=== PATIENT | male | born 1945 | race Caucasian/White ===

== ENCOUNTER 2022-11-17 15:34 | Outpatient (OUT) | payer MEDICARE, SELFPAY ==
[2022-11-19 05:07] LABS: Prostate Specific Ag 23.7 ng/mL (0.0-4.0)
== END 2022-11-17 15:35 | disposition home or self-care (01) ==
LOC: LAB 15:42
PROVIDERS: PCP Nurse Practitioner; Visit Provider Urology
DX: R97.20 Elevated prostate specific antigen [PSA] (principal); N40.1 Benign prostatic hyperplasia with lower urinary tract symptoms
CPT/HCPCS: 36415; 84153; 84154

== ENCOUNTER 2023-04-09 12:04 | Emergency (ER) | payer MEDICARE, SELFPAY ==
[2023-04-09 12:10] VITALS: BP 160/100; PULSE 82; RESP 20; TEMP 36.7; O2SAT 95; BMI 31.2
[2023-04-09] MEDS: LIDOCAINE 2% JELLY 10 ML UR (12:56)
--- NOTE | 2023-04-09 12:57 | ED.MALEGU1 ---
HPI - Male Genitourinary General Chief complaint: Urogenital-Male Stated complaint: STRAW [employer]AT [employer]ATOR PROBLEM Time Seen by Provider: 04/09/23 12:41 Source: patient Mode of arrival: Wheelchair Limitations: no limitations History of Present Illness HPI Narrative: this patient came from home with promises Chen catheter. It did not drain any urine in the last twenty-four hours he has suprapubic discomfort. He is currently under the care of a urologist. He is not currently on any antibiotics. He's not had any fever shakes or chills he is afebrile at this time. He's not seen any blood clots in the catheter. There has not been any trauma or injury. Related Data Home Medications Medication Instructions Recorded Confirmed doxycycline hyclate 100 mg capsule 100 mg PO Q12H 04/09/23 04/09/23 Allergies Allergy/AdvReac Type Severity Reaction Status Date / Time Beta-Blockers Allergy Severe Verified 04/09/23 12:17 (Beta-Adrenergic Bloc iv dye contrast Allergy Severe Uncoded 04/09/23 12:17 PFSH PFSH Social History Smoking status: Never smoker Exam Narrative Exam Narrative: this patient's here with his son for evaluation of a obstructed Chen catheter. He is scheduled to see urology for follow-up. It's been in for several weeks. He's been on antibiotics/doxycycline for several weeks. He's not had fever shakes or chills. They've nota blood clots or bleeding in the Chen catheter. He has not drained since yesterday. He is uncomfortable and has the urge to void. Nursing staff did a bladder scan on him and he has 650 mL of retained urine. Nursing staff was able to remove the previous catheter with no problems and reinsert a new catheter. We have over 600 mL of slightly cloudy yellow urine returning. No bleeding or blood clots were noted. Examination abdomen soft and supple at this time he has no abdominal discomfort. Constitutional Vital Signs, click to edit/add: Last Vital Signs Temp 98.1 F 04/09/23 12:10 Pulse 82 04/09/23 12:10 Resp 20 04/09/23 12:10 BP 160/100 H 04/09/23 12:10 Pulse Ox 95 04/09/23 12:10 Course Vital Signs Vital signs: Vital Signs Temperature 98.1 F 04/09/23 12:10 Pulse Rate 82 04/09/23 12:10 Respiratory Rate 20 04/09/23 12:10 Blood Pressure 160/100 H 04/09/23 12:10 Pulse Oximetry 95 04/09/23 12:10 Temperature 98.1 F 04/09/23 12:10 Pulse Rate 82 04/09/23 12:10 Respiratory Rate 20 04/09/23 12:10 Blood Pressure 160/100 H 04/09/23 12:10 Pulse Oximetry 95 04/09/23 12:10 MDM - Male Genitourinary MDM Narrative Medical decision making narrative: the son indicates that the urology team wants to do some biopsies for a prostate lesion but he also has a aneurysm that is scheduled to be repaired in [place] by the vascular surgery team. They're wanting to take care of that problem before the get concerned with the prostate. At this stage we're able to successfully reach changes Chen catheter and he did very well. We will teach him how to irrigate it every other day routine saline irrigation to help facilitate the longevity of this catheter. Discharge Plan Discharge Chief Complaint: Urogenital-Male Clinical Impression: Obstruction of Chen catheter Patient Disposition: Home, Self-Care Time of Disposition Decision: 13:07 Prescriptions / Home Meds: No Action doxycycline hyclate 100 mg capsule 100 mg PO Q12H Additional Instructions: follow-up with urology as needed. Consider irrigating catheter every other day Stand Alone Forms: Portal Instructions Referrals: Carmelita Zavala NP [Primary Care Provider] - 1 week
[2023-04-09 13:30] LABS: Clarity Urine TURBID (CLEAR); Color Urine DK YELLOW (YELLOW); pH Urine 8.5 (5.0-9.0)
[2023-04-09 13:31] LABS: Bilirubin Urine NEGATIVE (NEGATIVE); Blood Urine LARGE (NEGATIVE); Glucose Urine UA NEGATIVE (NEGATIVE); Ketones Urine NEGATIVE (NEGATIVE); Nitrite Urine NEGATIVE (NEGATIVE); Protein Urine 100 mg/dL (NEG/TRACE)
[2023-04-09 13:32] LABS: Leukocyte Esterase Urine LARGE (NEGATIVE); Urine Microscopic Indicated YES; Urobilinogen Urine 0.2 EU/dL (0.2-1.0)
[2023-04-09 13:33] LABS: Bacteria Urine LARGE #/HPF (NONE SEEN); RBC Urine 20-50 #/HPF (0-2); WBC Urine 50-75 #/HPF (NONE SEEN)
[2023-04-09 13:34] LABS: Cast Seen? NONE SEEN #/LPF (NONE SEEN); Crystals Seen? None Seen #/HPF (None Seen); Mucus Urine NONE SEEN (NONE SEEN); Squamous Epithelial Cell Urine NONE SEEN #/LPF (NONE/RARE); Urine Culture Indicated YES
--- NOTE | 2023-04-12 15:43 | PC.NURSE ---
04/12/23 1543 PT URINE C+S REVIEWED BY Shawna FREEMAN NO STOP DOXY START CIPRO 500 MG PO BID TIMES 7 DAYS CALLED INTO PHARMACIST AT [facility] PER PT SON REQUEST. PT SON NOTIFIED AND REQUEST RESULT FAXED TO UROLOGIST DR LEE DID REQUESTED. Tamiko CARLISLE RN
== END 2023-04-09 13:43 | disposition home or self-care (01) ==
PROVIDERS: Emergency Provider Emergency Medicine Emergency Medical Services; PCP Nurse Practitioner
DX: T83.098A Other mechanical complication of other urinary catheter, initial encounter (principal); R10.9 Unspecified abdominal pain
CPT/HCPCS: 51702; 81001; 87086; 87150; 87186; 99284

== ENCOUNTER 2023-06-08 16:52 | Outpatient (REF) | payer MEDICARE, SELFPAY ==
--- OUTSIDE RECORDS SUMMARY | 2023-06-08 16:59 | XMS_ITS | CCD ---
Author Name Unknown Address [id number] [place] [address] Organization [facility] Care Team Providers Care Jewelsmith Name Role Phone CARMELITA ZAVALA Primary Care Physician LINDA WORKMAN Attending Unavailable ANABELA, MINDY Referring Unavailable AICHHOLZ, SPRING COVERER CARMELITA Primary Care Unavailable HOY ., DR HOWARD Admitting Unavailable HOY ., DR HOWARD Attending Unavailable HOY ., DR HOWARD Consulting Unavailable ANIKA CURTIS Consulting Unavailable ALKA MORENO Consulting Unavailable CARMEN MURDOCK Consulting Unavailable AD, JULEE Consulting Unavailable AICHHOLZ, SPRING COVERER CARMELITA Admitting Unavailable AICHHOLZ, SPRING COVERER CARMELITA Attending Unavailable AICHHOLZ, SPRING COVERER CARMELITA Primary Care Unavailable AICHHOLZ, SPRING COVERER CARMELITA Consulting Unavailable AICHHOLZ, SPRING COVERER CARMELITA Admitting Unavailable AICHHOLZ, SPRING COVERER CARMELITA Attending Unavailable AICHHOLZ, SPRING COVERER CARMELITA Primary Care Unavailable AICHHOLZ, SPRING COVERER CARMELITA Consulting Unavailable AICHHOLZ, SPRING COVERER CARMELITA Admitting Unavailable AICHHOLZ, SPRING COVERER CARMELITA Attending Unavailable AICHHOLZ, SPRING COVERER CARMELITA Primary Care Unavailable AICHHOLZ, SPRING COVERER CARMELITA Consulting Unavailable WILLIAMS Arboleda, DR MADY Liao Admitting Unavaila asim Arboleda, DR MADY Liao Attending Unavaila ble AICHHOLZ, SPRING COVERER CARMELITA Primary Care Unavailable Deandre Min Consulting Unavailable DR MADY CAGLE JR Consulting Unavaila ble AICHHOLZ, SPRING COVERER CARMELITA Admitting Unavailable AICHHOLZ, SPRING COVERER CARMELITA Attending Unavailable AICHHOLZ, SPRING COVERER CARMELITA Primary Care Unavailable DR CAROLINE BLOUNT V Consulting Unavailable AICHHOLZ, SPRING COVERER CARMELITA Consulting Unavailable AICHHOLZ, SPRING COVERER CARMELITA Admitting Unavailable AICHHOLZ, SPRING COVERER CARMELITA Attending Unavailable AICHHOLZ, SPRING COVERER CARMELITA Primary Care Unavailable AICHHOLZ, TATYANA CARMELITA Consulting Unavailable MD Sancho Lee Attending Provider Carmelita Zavala Primary Care Provider [phone] Linda Rodriguez Unavailable Carmelita Zavala Primary Care Provider [phone] MD Sancho Lee Attending Provider MD Linda Rodriguez Attending Provider Carmelita Zavala Primary Care Provider [phone] MD Sancho Lee Attending Provider MD Linda Rodriguez Attending Provider Glo Singleton Unavailable MD Glo Singleton Attending Provider [phone] MD Glo Singleton Referring Provider [phone] Cherry, IOS DEVELOPER-BC Mary Miller Emergency Provider [phone] MD Linda Rodriguez Admit Provider Linda Rodriguez Admitting Unavailabl e Linda Rodriguez Attending Unavailabl e Carmelita Zavala Primary Care Unavailable Linda Rodriguez Attending Unavailabl e Linda Rodriguez Admitting Unavailabl e Carmelita Zavala Primary Care Unavailable Mary Carey Admitting Unavailable CarieoreOmerer Angela Attending Unavailable Carmelita Zavala Primary Care Unavailable Sancho Lee Attending Unavailable Sancho Lee Admitting Unavailable Carmelita Zavala Primary Care Unavailable Linda Rodriguez Admitting Unavailabl e Linda Rodriguez Attending Unavailabl e Carmelita Zavala Primary Care Unavailable Linda Rodriguez Admitting Unavailabl e Linda Rodriguez Attending Unavailabl e Carmelita Zavala Primary Care Unavailable Glo Singleton Admabena Unavailable Glo Singleton Attending Unavailable Glo Singleton Referring Unavailable Carmelita Zavala Primary Care Unavailable Addie Hunt Unavailable Sancho LEE R Attending Unavailable LEE, Sancho R Attending Unavailable LEE, Sancho R Attending Unavailable LEE, Sancho R Attending Unavailable LEE, Sancho R Attending Unavailable LEE, Sancho R Admitting Unavailable LEE, Sancho R Attending Unavailable LEE, Sancho R Attending Unavailable LEE, Sancho R Attending Unavailable Allergies Allergy Classification Reported Allergen(s) Allergy Type Date of Onset Reaction(s) Facility (4 sources) Adrenergic Beta-Antagonist s; Translations: [beta blockers] Drug allergy Asthenia (finding), Vomiting (disorder), Dizziness (finding) [facility] (1 source) ALLERGIES NOT ON FILE; Translations: [ALLERGIES NOT ON FILE] Propensity to adverse reactions (disorder) [facility] (1 source) Adrenergic Beta-Antagonist s Drug allergy (disorder) [facility] (7 sources) Beta-Blockers (Beta-Adrenergi c Bloc; Translations: [Beta-Blockers (Beta-Adrenergi c Bloc] Allergy to substance 3 Headache [facility] (9 sources) Adrenergic Beta-Antagonist s Propensity to adverse reactions vomiting [facility] Other (6 sources) Iodinated Contrast Media; Translations: [Iodinated Contrast Media] Allergy to substance 3 Difficulty Swallowing [facility] (7 sources) Contrast Allergy PreMed Pack Drug allergy Unknown [employer] [facility] Other Medications Current Medications Medication Drug Class(es) Dates Sig (Normalized) Sig (Original) acetaminophen 325 mg / oxyCODONE hydrochloride 5 mg oral tablet (1 source) Opioid Agonist Start: 04-18-2021 take 1 tablet by mouth every six hours Percocet 5 mg-325 mg oral tablet 1 tab(s), Oral, q6hr Pain 8-10, 20 tab(s), Refill(s) 0, [facility] 177.8, cm, 04/18/21 10:33:00 EST, Height/Length Dosing, 84.4, kg, 04/18/21 10:33:00 EST, Weight Dosing Start Date: 04/18/21 Status: Ordered aspirin 81 mg delayed release oral tablet (20 sources) Platelet Aggregation Inhibitor, Nonsteroidal Anti-inflammatory Drug Start: 04-18-2021 take 1 tablet by mouth once daily aspirin 81 mg Oral EC Tab 81 mg = 1 tab(s), Oral, Daily, Blood Thinner Start Date: 04/18/21 Status: Ordered Start: 11-26-2018 End: 04-13-2023 take 81 mg by mouth once daily Aspirin Discontinued 81 MG PO Daily 0 November 27, 2018 12:50pm April 13, 2023 12:39pm atorvastatin 40 mg oral tablet (18 sources) HMG-CoA Reductase Inhibitor Start: 11-27-2018 take 1 tablet by mouth once daily at bedtime Atorvastatin (Lipitor) 40 mg tablet Active 40 MG PO Daily at bedtime November 26, 2018 11:00pm Start: 01-28-2011 take 1 tablet by david th once daily Lipitor 10 mg Tab 10 mg = 1 tab(s), Oral, Daily, Refills(s) 0, High cholesterol Start Date: 01/28/11 Status: Ordered clopidogrel 75 mg oral tablet (20 sources) P2Y12 Platelet Inhibitor Start: 11-27-2018 End: 04-13-2023 take 1 tablet by mouth once daily clopidogrel 75 mg Tab 75 mg = 1 tab(s), Oral, Daily, Refills(s) 0, Blood Thinner Start Date: 12/30/18 Status: Ordered docusate sodium 100 mg oral capsule (1 source) Start: 04-23-2023 take 100 mg by mouth twice daily Docusate Sodium Active 100 MG PO Twice daily 14 April 23, 2023 12:00am doxycycline hyclate 100 mg oral capsule (1 source) Tetracycline-class Drug Start: 03-13-2023 take 1 capsule by mouth twice daily doxycycline hyclate 100 mg Cap 100 mg = 1 cap(s), Oral, BID, # 42 cap(s), Refills(s) 0, Pharmacy: [id number], 177.8, cm, 04/18/21 10:33:00 EST, Height/Length Dosing, 84.4, kg, 11/21/22 9:52:00 EDT, Weight Dosing Start Date: 03/13/23 Status: Ordered DULoxetine 30 mg delayed release oral capsule (11 sources) Serotonin and Norepinephrine Reuptake Inhibitor Start: 09-22-2022 duloxetine 30 mg oral delayed release capsule Refills(s) 0 Start Date: 09/22/22 Status: Ordered hyoscyamine sulfate 0.125 mg oral tablet (1 source) Start: 04-18-2021 take 1 tablet by mouth four times daily Levsin 0.125 mg SL Tab 0.125 mg = 1 tab(s), Oral, QID, # 20 tab(s), Refills(s) 0, Pharmacy: [address], 177.8, cm, 04/18/21 10:33:00 EST, Height/Length Dosing, 84.4, kg, 04/18/21 10:33:00 EST, Weight Dosing Start Date: 04/18/21 Status: Ordered ibuprofen 200 mg oral capsule (18 sources) Nonsteroidal Anti-inflammatory Drug Start: 04-18-2021 take 1 capsule by mouth every six hours as needed for pain ibuprofen 200 mg oral capsule 200 mg = 1 cap(s), Oral, q6hr, PRN as needed for pain Start Date: 04/18/21 Status: Ordered Start: 02-06-2020 End: 04-13-2023 take 800 mg by mouth every eight hours Ibuprofen Discontinued 800 MG PO Q8H February 05, 2020 11:00pm April 13, 2023 12:36pm levothyroxine sodium 0.05 mg oral tablet (20 sources) l-Thyroxine Start: 04-13-2023 take 25 ug by mouth once daily at bedtime Levothyroxine Active 25 MCG PO Daily at bedtime April 13, 2023 12:00am Start: 02-09-2020 End: 04-13-2023 take 13 ug by mouth once daily Levothyroxine Discontin ued 13 MCG PO Daily February 09, 2020 1:07pm April 13, 2023 12:55pm Start: 12-30-2018 take 1 tablet by david th once daily levothyroxine 50 mcg (0.05 mg) Tab 50 microgram = 1 tab(s), Oral, Daily, Refills(s) 0, Thyroid Start Date: 12/30/18 Status: Ordered Start: 12-01-2018 End: 02-09-2020 take 50 ug by mouth once daily Levothyroxine Discontin ued 50 MCG PO Daily November 30, 2018 11:00pm February 09, 2020 1:07pm Start: 11-26-2018 End: 12-02-2018 take 75 ug by mouth once daily Levothyroxine Discontin ued 75 MCG PO Daily November 25, 2018 11:00pm December 02, 2018 11:33am take 1 tablet by david th once daily in the morning Levothyroxine Sodium 25 MCG 1 tablet in the morning on an empty stomach Orally Once a day Active take 1 tablet by david th once daily in the morning Levothyroxine Sodium 25 MCG 1 tablet in the morning on an empty stomach Orally Once a day Active take 1 tablet by david th once daily in the morning Levothyroxine Sodium 13 MCG 1 tablet in the morning on an empty stomach Orally Once a day Active lisinopril 20 mg oral tablet (20 sources) Angiotensin Converting Enzyme Inhibitor Start: 04-13-2023 take 20 mg by mouth once daily at bedtime Lisinopril Active 20 MG PO Daily at bedtime April 13, 2023 12:00am Start: 03-21-2021 take 1 tablet by david th once daily lisinopril 5 mg Tab 5 mg = 1 tab(s), Oral, Daily, Refills(s) 0, High blood pressure Start Date: 03/21/21 Status: Ordered Start: 02-09-2020 End: 04-13-2023 take 5 mg by mouth once daily Lisinopril Discontinued 5 MG PO Daily February 09, 2020 1:09pm April 13, 2023 12:35pm Start: 11-27-2018 End: 02-09-2020 take 2.5 mg by mouth once daily Lisinopril Discontinue d 2.5 MG PO Daily November 26, 2018 11:00pm February 09, 2020 1:09pm memantine hydrochloride 10 mg oral tablet (1 source) U-alyngv-W-aspartate Receptor Antagonist Start: 03-21-2021 take 1 tablet by mouth twice daily memantine 10 mg Tab 10 mg = 1 tab(s), Oral, BID, Refills(s) 0, Other (see comment) Start Date: 03/21/21 Status: Ordered metFORMIN hydrochloride 500 mg oral tablet (4 sources) Biguanide Start: 09-22-2022 take 500 mg by mouth once daily at bedtime Metformin Active 500 MG PO Daily at bedtime April 13, 2023 12:00am oxyCODONE hydrochloride 5 mg oral tablet (1 source) Opioid Agonist Start: 04-23-2023 take 5 mg by mouth every eight hours Oxycodone Active 5 MG PO Every 8 hours 14 5 April 23, 2023 potassium chloride 10 meq extended release oral tablet (17 sources) Start: 04-13-2023 take 10 mEq by mouth once daily at bedtime Potassium Chloride Active 10 MEQ PO Daily at bedtime April 13, 2023 12:00am Start: 09-22-2022 Potassium Chlo ride (Dzp-Rgfd-Utb 10) 10 mEq oral tablet, extended release Refills(s) 0 Start Date: 09/22/22 Status: Ordered Start: 11-26-2018 End: 12-02-2018 take 20 mEq by mouth once daily Potassium Chloride Discontinued 20 MEQ PO Daily November 25, 2018 11:00pm December 02, 2018 11:33am take 1 tablet by david th every twelve hours Potassium Chloride ER 10 MEQ 1 tablet with food Orally Twice a day Active pregabalin 150 mg oral capsule (12 sources) Start: 04-13-2023 take 150 mg by mouth once daily at bedtime Pregabalin Active 150 MG PO Daily at bedtime April 13, 2023 12:00am Start: 03-21-2021 take 1 mg by mouth twice daily Lyrica 150 mg Cap mg cap(s), Oral, BID, Refills(s) 0, Other (see comment) Start Date: 03/21/21 Status: Ordered RA VITAMIN D3 2,000 UNIT SFGL (2 sources) Start: 09-22-2022 RA VITAMIN D3 2,000 UNIT SFGL RA VITAMIN D3 2,000 UNIT SFGL Start Date: 09/22/22 Status: Ordered tamsulosin hydrochloride 0.4 mg oral capsule (20 sources) alpha-Adrenergi c Joseph Start: 12-02-2018 End: 04-13-2023 take 1 capsule by mouth once daily Flomax 0.4 mg Cap 0.4 mg = 1 cap(s), Oral, Daily, # 90 cap(s), Refills(s) 3, Pharmacy: [id number], 177.8, cm, 04/18/21 10:33:00 EST, Height/Length Dosing, 84.4, kg, 04/18/21 10:33:00 EST, Weight Dosing Start Date: 5/10/22 Status: Ordered Completed/Discontinued Medications Medication Drug Class(es) Dates Sig (Normalized) Sig (Original) cefdinir 300 mg oral capsule (6 sources) Cephalosporin Antibacterial Start: 12-02-2018 End: 12-05-2018 take 300 mg by mouth every twelve hours Cefdinir Discontinued 300 MG PO Q12H 14 7 December 01, 2018 11:00pm December 05, 2018 12:53pm gabapentin 600 mg oral tablet (18 sources) Anti-epileptic Agent Start: 11-26-2018 End: 04-13-2023 take 1200 mg by mouth twice daily Gabapentin Discontinued 1200 MG PO Twice daily 60 December 05, 2018 2:53pm April 13, 2023 12:36pm take 3 capsules by m outh three times daily as needed Gabapentin 600 MG 3 capsule Orally Three times a day, prn Not-Taking/PRN magnesium oxide 400 mg oral tablet (6 sources) Start: 02-09-2020 End: 04-13-2023 take 400 mg by mouth twice daily Magnesium Oxide Discontinued 400 MG PO Twice daily 60 February 08, 2020 11:00pm April 13, 2023 12:36pm vitamin b12 1 mg oral capsule (20 sources) Vitamin B12 Start: 02-09-2020 End: 04-13-2023 take 1000 ug by mouth once daily Cyanocobalamin (Vitamin B-12) Discontinued 1000 MCG PO Daily 30 February 08, 2020 11:00pm April 13, 2023 12:36pm Start: 11-26-2018 End: 11-29-2018 inject 1000 ug by intramuscular injection every month Cyanocobalamin (Vitamin B-12) Discontinued 1000 MCG IM every month November 25, 2018 11:00pm November 29, 2018 9:14pm take 1 tablet by mouth once dory y Cyanocobalamin 1000 MCG 1 tablet Orally Once a day Active Problems Active Problems Problem Classification Problem Date Documented Da te Episodic/Chronic Acute cerebrovascular disease (9 sources) Cerebrovascular accident; Translations: [Cerebral infarction, unspecified] Onset: 05-04-1997 07-15-2013 Chronic Aortic; peripheral; and visceral artery aneurysms (20 sources) Aneurysm; 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 Calculus of urinary tract (7 sources) Ureteric stone; Translations: [Calculus of ureter] Onset: 10-29-2021 Episodic Cardiac dysrhythmias (6 sources) Paroxysmal atrial fibrillation; Translations: [Paroxysmal atrial fibrillation] 02-08-2020 Chronic Chronic obstructive pulmonary disease and bronchiectasis (6 sources) Bronchitis; Translations: [Bronchitis, not specified as acute or chronic] 02-06-2020 Episodic Congestive heart failure; nonhypertensive (6 sources) Chronic diastolic heart failure; Translations: [Chronic diastolic (congestive) heart failure] 11-27-2018 Chronic Coronary atherosclerosis and other heart disease (1 source) Atherosclerotic heart disease of [place] coronary artery without angina pectoris; Translations: [ASHD WASHOE CA W/O ANGINA PECTORIS] Onset: 01-17-2022 Chronic Diabetes mellitus without complication (7 sources) Prediabetes; Translations: [Prediabetes] Onset: 12-26-2021 11-27-2018 Episodic Disorders of lipid metabolism (10 sources) Hypercholesterolemia; Translations: [Pure hypercholesterolemia, unspecified] Onset: 01-17-2022 04-17-2021 Chronic Essential hypertension (16 sources) Hypertensive disorder; Translations: [Essential (primary) hypertension] Onset: 01-17-2022 01-28-2011 Chronic Fluid and electrolyte disorders (7 sources) Hypokalemia; Translations: [Hypokalemia] Onset: 10-10-2021 02-08-2020 Episodic Genitourinary symptoms and ill-defined conditions (3 sources) Urge incontinence of urine 02-10-2019 Chronic Genitourinary symptoms and ill-defined conditions (20 sources) Blood in urine; Translations: [Gross hematuria] Onset: 10-07-2021 Episodic Gout and other crystal arthropathies (3 sources) Gout 04-17-2021 Chronic Hyperplasia of prostate (8 sources) Benign prostatic hypertrophy with outflow obstruction; Translations: [Benign prostatic hyperplasia with lower urinary tract symptoms] Onset: 10-22-2021 Chronic Malaise and fatigue (13 sources) Other fatigue; Translations: [Asthenia] Onset: 09-13-2021 11-29-2018 Episodic Nutritional deficiencies (1 source) Vitamin D deficiency, unspecified; Translations: [VITAMIN D DEFICIENCY UNSPECIFIED] Onset: 12-26-2021 Chronic Open wounds of extremities (6 sources) Amputated left lower limb above knee; Translations: [Complete traumatic amputation at level between left hip and knee, initial encounter] 11-27-2018 Chronic Open wounds of extremities (6 sources) Amputated right lower limb above knee; Translations: [Complete traumatic amputation at level between right hip and knee, initial encounter] 11-27-2018 Chronic Other aftercare (1 source) Encounter for surgical aftercare following surgery on the circulatory system Episodic Other aftercare (1 source) Encounter for other specified surgical aftercare Episodic Other bone disease and musculoskeletal deformities (1 source) Acquired absence of left leg above knee; Translations: [ACQUIRED ABSENCE LT LEG ABOVE KNEE] Onset: 01-17-2022 Chronic Other bone disease and musculoskeletal deformities (1 source) Acquired absence of right leg above knee; Translations: [ACQUIRED ABSENCE RT LEG ABOVE KNEE] Onset: 01-17-2022 Chronic Other circulatory disease (6 sources) History of cerebrovascular accident; Translations: [Personal history of transient ischemic attack (TIA), and cerebral infarction without residual deficits] 12-04-2018 Episodic Other eye disorders (7 sources) Bilateral posterior vitreous detachment; Translations: [Vitreous degeneration, bilateral] Chronic Other eye disorders (1 source) Vitreous degeneration, bilateral Chronic Other gastrointestinal disorders (6 sources) Dysphagia; Translations: [Dysphagia, unspecified] 11-30-2018 Episodic Other gastrointestinal disorders (6 sources) Constipation; Translations: [Constipation, unspecified] 12-01-2018 Episodic Other male genital disorders (1 source) History of prostatitis 04-17-2023 Episodic Other nervous system disorders (6 sources) Metabolic encephalopathy; Translations: [Metabolic encephalopathy] 02-07-2020 Chronic Other nervous system disorders (9 sources) Phantom pain following amputation of lower limb; 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] Chronic Other nervous system disorders (6 sources) Dysphasia; Translations: [Dysphasia] 11-30-2018 Episodic Other nervous system disorders (1 source) Postoperative pain ; Translations: [Other acute postprocedural pain] 04-23-2023 Episodic Other nervous system disorders (1 source) Other acute postprocedural pain; Translations: [Other acute postprocedural pain] Onset: 04-20-2023 Episodic Other nutritional; endocrine; and metabolic disorders (4 sources) Other disorders of bilirubin metabolism; Translations: [OTH DISORDERS BILIRUBIN METABOLISM] Onset: 12-24-2021 Chronic Other screening for suspected conditions (not mental disorders or infectious disease) (15 sources) Decreased thyroid stimulating hormone level; Translations: [Other specified abnormal findings of blood chemistry] 12-02-2018 Episodic Peripheral and visceral atherosclerosis (4 sources) Peripheral vascular disease; Translations: [Peripheral vascular disease, unspecified] Onset: 01-17-2022 10-21-2013 Chronic Phlebitis; thrombophlebitis and thromboembolism (3 sources) Deep venous thrombosis 03-29-2012 Episodic Comment on above: Left leg Residual codes; unclassified (2 sources) Other amnesia; Translations: [Other amnesia] Onset: 07-21-2022 Episodic Residual codes; unclassified (6 sources) Confusional state; Translations: [Disorientation, unspecified] 02-06-2020 Episodic Residual codes; unclassified (6 sources) Altered mental status; Translations: [Altered mental status, unspecified] 02-06-2020 Episodic Sprains and strains (2 sources) Sprain of wrist; Translations: [Unspecified sprain of right wrist, initial encounter] 04-17-2023 Episodic Thyroid disorders (16 sources) Hypothyroidism, unspecified; Translations: [Hypothyroidism] Onset: 01-17-2022 11-29-2018 Chronic Unclassified (3 sources) Drug therapy finding 09-27-2019 Unclassified (3 sources) Finding of sensation of bladder 02-10-2019 Unclassified (1 source) CONTACT W/AND (SUSP) EXPOS COVID-19; Translations: [CONTACT W/AND (SUSP) EXPOS COVID-19] Onset: 01-17-2022 Unclassified (2 sources) Asymptomatic microscopic hematuria 11-21-2022 Unclassified (1 source) Pain in right wrist; Translations: [Pain in right wrist] Onset: 04-17-2023 Unclassified (1 source) Encounter for preprocedural laboratory examination; Translations: [Encounter for preprocedural laboratory examination] Onset: 04-13-2023 Unclassified (1 source) Encounter for preprocedural cardiovascular examination; Translations: [Encounter for preprocedural cardiovascular examination] Onset: 03-24-2023 Unclassified (1 source) Benign prostatic hyperplasia with lower urinary tract symptoms; Translations: [Benign prostatic hyperplasia with lower urinary tract symptoms] Onset: 02-10-2023 Urinary tract infections (9 sources) Urinary tract infectious disease; Translations: [Urinary tract infection, site not specified] 04-17-2021 Episodic Past or Other Problems Problem Classification Problem Date Documented Da te Episodic/Chronic Acute and unspecified renal failure (1 source) Acute kidney failure, unspecified; Translations: [ACUTE KIDNEY FAILURE UNSPECIFIED] Onset: 01-17-2022 Episodic Other aftercare (1 source) jail (current) use of aspirin; Translations: [[facility] CURRENT USE OF ASPIRIN] Onset: 01-17-2022 Episodic Other aftercare (1 source) Other superintendent terminal (current) drug therapy; Translations: [OTH [facility] CURRENT DRUG THERAPY] Onset: 01-17-2022 Episodic Other circulatory disease (1 source) Personal history of transient ischemic attack (TIA), and cerebral infarction without residual deficits; Translations: [PERS HX TIA AND CI NO RESID DEFICIT] Onset: 01-17-2022 Episodic Other endocrine disorders (1 source) Endocrine disorder, unspecified; Translations: [ENDOCRINE DISORDER UNSPECIFIED] Onset: 12-26-2021 Episodic Spondylosis; intervertebral disc disorders; other back problems (1 source) Dorsalgia, unspecified; Translations: [DORSALGIA UNSPECIFIED] Onset: 12-26-2021 Episodic Syncope (4 sources) Syncope and collapse; Translations: [SYNCOPE AND COLLAPSE] Onset: 01-14-2022 Episodic Unclassified (1 source) Abdominal aortic aneurysm (AAA) without rupture, unspecified part I71.40 Results Test Name Value Interpretation Reference Range Facility Consent for Procedure/Surger yon 06-01-2023 Consent for Procedure/Surgery [id number] #1.00TIFF [facility] Operative Reporton Operative Report [id number]# 1.00TI[address] [facility] Glucose Glucometer (BldC) [M ass/Vol]Ordered By: Linda Rodriguez on 04-24-2023 Glucose [Mass/Vol] 102 mg/dL [facility] Comment on above: Random Glucose Refer ence Range is dependent on time and content of last meal. Glucose of more than 200 mg/dL in a nonstressed, ambulatory subject supports the diagnosis of Diabetes Mellitus. Glucose Poct Glucometerson 1 06-25-2022 Commemt1 Glu2: Cleaned Meter Normal [facility] Comment on above: Result Comment: PERF ORMED BY: [place] [address] PATHOLOGIST MECHANICAL APPLICATIONS ENGINEER NOAH PINEDA M.D. Performed By: #### G LULS #### Point of Care testing , Glucose [Mass/Vol] 102 mg/dL Normal [facility] Comment on above: Result Comment: [place] [facility] Glucose Reference Range is dependent on time and content of last meal. Glucose of more than 200 mg/dL in a nonstressed, ambulatory subject supports the diagnosis of Diabetes Mellitus. Performed By: #### G LULS #### Point of Care testing , No Panel InformationOrdered By: Linda Rodriguez on 04-24-2023 Bedside Glucose Comment Glu2: cleaned meter [facility] Glucose Poct Glucometerson 1 06-24-2022 Glucose [Mass/Vol] 118 mg/dL Normal [facility] Comment on above: Result Comment: [place] [facility] Glucose Reference Range is dependent on time and content of last meal. Glucose of more than 200 mg/dL in a nonstressed, ambulatory subject supports the diagnosis of Diabetes Mellitus. PERFORMED BY: [place] [address] PATHOLOGIST MECHANICAL APPLICATIONS ENGINEER NOAH PINEDA M.D. Performed By: #### I SCRE #### [facility] [address] [place] [address] [place] Commemt1 Glu2: Cleaned Meter [facility] Comment on above: Result Comment: PERF ORMED BY: [place] [address] PATHOLOGIST MECHANICAL APPLICATIONS ENGINEER NOAH PINEDA M.D. Performed By: #### I SCRE #### [facility] [address] [place] [address] Glucose [Mass/Vol] 77 mg/dL Normal [facility] Comment on above: Result Comment: [place] Glucose Reference Range is dependent on time and content of last meal. Glucose of more than 200 mg/dL in a nonstressed, ambulatory subject supports the diagnosis of Diabetes Mellitus. Performed By: #### I SCRE #### [address] Glucose Poct Glucometerson 1 06-23-2022 Glucose [Mass/Vol] 65 mg/dL Normal [facility] Comment on above: Result Comment: [facility] Glucose Reference Range is dependent on time and content of last meal. Glucose of more than 200 mg/dL in a nonstressed, ambulatory subject supports the diagnosis of Diabetes Mellitus. PERFORMED BY: [place] [address] PATHOLOGIST MECHANICAL APPLICATIONS ENGINEER NOAH PINEDA M.D. Performed By: #### G LULS #### Point of Care testing , Commemt1 Glu2: Cleaned Meter Normal [facility] Comment on above: Result Comment: PERF ORMED BY: [place] [address] PATHOLOGIST MECHANICAL APPLICATIONS ENGINEER NOAH PINEDA M.D. Performed By: #### C MP, CBC #### [address] Glucose [Mass/Vol] 81 mg/dL Normal [facility] Comment on above: Result Comment: [facility] Glucose Reference Range is dependent on time and content of last meal. Glucose of more than 200 mg/dL in a nonstressed, ambulatory subject supports the diagnosis of Diabetes Mellitus. Performed By: #### C MP, CBC #### [address] Basic Metabolic Panelon 12-1 Anion gap [Moles/Vol] Not performed Normal 6.0-15.0 [facility] Comment on above: Performed By: #### C MP, CBC #### [place] [address] [place] Calcium [Mass/Vol] 8.0 mg/dL Low 8.6-10.3 [facility] Comment on above: Performed By: #### C MP, CBC #### [place] [address] [place] Chloride [Moles/Vol] 106 mmol/L Normal 98-107 [facility] Comment on above: Performed By: #### C MP, CBC #### [facility] [address] CO2 [Moles/Vol] 24.7 mmol/L Normal 21.0-31.0 [facility] Comment on above: Performed By: #### C MP, CBC #### [facility] [address] Creatinine [Mass/Vol] 1.06 mg/dL Normal 0.70-1.30 [facility] Comment on above: Performed By: #### C MP, CBC #### [facility] [address] [place] [address] [place] Creatinine Clr Calc Pharmacy 54.31 [facility] Comment on above: Result Comment: PERF ORMED BY: [place] [address] PATHOLOGIST MECHANICAL APPLICATIONS ENGINEER NOAH PINEDA M.D. Performed By: #### C MP, CBC #### [place] [address] [place] GFR/1.73 sq M.predicted MDRD (S/P/Bld) [Vol rate/Area] mL/min/{1.73_m2} [facility] Comment on above: Performed By: #### C MP, CBC #### [facility] [address] [place] [address] [place] Glucose [Mass/Vol] 130 mg/dL High 70-100 [facility] Comment on above: Result Comment: [place] Glucose Reference Range is dependent on time and content of last meal. Glucose of more than 200 mg/dL in a nonstressed, ambulatory subject supports the diagnosis of Diabetes Mellitus. ADA recommended reference range Performed By: #### C MP, CBC #### [facility] [address] [place] [address] [place] Potassium Normal 3.5-5.1 [facility] Comment on above: Result Comment: Spec imen hemolyzed, redraw requested Performed By: #### C MP, CBC #### [facility] [address] [place] [address] [place] Sodium [Moles/Vol] 137 mmol/L Normal 136-145 [facility] Comment on above: Performed By: #### C MP, CBC #### [facility] [address] Urea nitrogen [Mass/Vol] 19 mg/dL Normal 7-25 [facility] Comment on above: Performed By: #### C MP, CBC #### [facility] [address] Basophils Auto (Bld) [#/Vol] Ordered By: Linda Rodriguez on 04-21-2023 Basophils (Bld) [#/Vol] 0.0 10*3/uL 0.0-0.2 [facility] Basophils/100 WBC Auto (Bld) Ordered By: Linda Rodriguez on 04-21-2023 Basophils/100 WBC (Bld) 0.2 % . [facility] Calcium [Mass/volume] in Ser um or PlasmaOrdered By: Linda Rodriguez on 04-21-2023 Calcium [Mass/Vol] 8.0 mg/dL 8.6-10.3 [facility] Carbon dioxide, total [Moles /volume] in Serum or PlasmaOrdered By: Linda Rodriguez on 04-21-2023 CO2 [Moles/Vol] 24.7 mmol/L 21.0-31.0 [facility] Chloride [Moles/volume] in S colleen or PlasmaOrdered By: Linda Rodriguez on 04-21-2023 Chloride [Moles/Vol] 106 mmol/L 98-107 [facility] Complete Blood Count Auto Di ffon 04-21-2023 Basophils (Bld) [#/Vol] 0.0 10*3/uL Normal 0.0-0.2 [facility] Comment on above: Result Comment: PERF ORMED BY: [place] [address] PATHOLOGIST MECHANICAL APPLICATIONS ENGINEER NOAH PINEDA M.D. Performed By: #### C MP, CBC #### [facility] [address] Basophils/100 WBC (Bld) 0.2 % Normal . [facility] Comment on above: Performed By: #### C MP, CBC #### [facility] [address] [place] [address] [place] Eosinophils (Bld) [#/Vol] 0.0 10*3/uL Normal 0.0-0.45 [facility] Comment on above: Performed By: #### C MP, CBC #### [facility] [address] [place] [address] [place] Eosinophils/100 WBC (Bld) 0.0 % Normal . [facility] Comment on above: Performed By: #### C MP, CBC #### [facility] [address] Erythrocyte distribution width (RBC) [Ratio] 13.8 % Normal 12.0-14.8 [facility] Comment on above: Performed By: #### C MP, CBC #### [facility] [address] Hematocrit (Bld) [Volume fraction] 31.7 % Low 38.8-50.0 [facility] Comment on above: Performed By: #### C MP, CBC #### [facility] [address] [place] [address] [place] Hemoglobin (Bld) [Mass/Vol] 10.6 g/dL Low 13.0-17.0 [facility] Comment on above: Performed By: #### C MP, CBC #### [facility] [address] [place] [address] [place] Lymphocytes (Bld) [#/Vol] 0.7 10*3/uL Low 1.00-4.8 [facility] Comment on above: Performed By: #### C MP, CBC #### [facility] [address] [place] [address] [place] Lymphocytes/100 WBC (Bld) 3.9 % Normal . [facility] Comment on above: Performed By: #### C MP, CBC #### [facility] [address] MCH (RBC) [Entitic mass] 31.1 pg Normal 27.5-35.2 [facility] Comment on above: Performed By: #### C MP, CBC #### [facility] [address] MCV (RBC) [Entitic vol] 92.8 fL Normal 83.5-101 [facility] Comment on above: Performed By: #### C MP, CBC #### [facility] [address] Mean Corpuscular HGB Conc 33.5 g/dL Normal 32.5-35.6 [facility] Comment on above: Performed By: #### C MP, CBC #### [facility] [address] [place] [address] [place] Monocytes (Bld) [#/Vol] 0.8 10*3/uL Normal 0.0-0.8 [facility] Comment on above: Performed By: #### C MP, CBC #### [facility] [address] [place] [address] [place] Monocytes/100 WBC (Bld) 4.6 % Normal . [facility] Comment on above: Performed By: #### C MP, CBC #### [facility] [address] [place] [address] [place] Neutrophils (Bld) [#/Vol] 16.0 10*3/uL High 1.8-7.7 [facility] Comment on above: Performed By: #### C MP, CBC #### [facility] [address] [place] [address] [place] Neutrophils/100 WBC (Bld) 91.3 % Normal . [facility] Comment on above: Performed By: #### C MP, CBC #### [facility] [address] [place] [address] [place] NRBC% 0.0 /100{WBC} Normal 0-0.5 [facility] Comment on above: Performed By: #### C MP, CBC #### [facility] [address] Platelet mean volume (Bld) [Entitic vol] 8.1 fL Normal 6.6-10.1 [facility] Comment on above: Performed By: #### C MP, CBC #### [facility] [address] [place] [address] [place] Platelets (Bld) [#/Vol] 244 10*3/uL Normal 150-450 [facility] Comment on above: Performed By: #### C MP, CBC #### [facility] [address] RBC (Bld) [#/Vol] 3.41 10*6/uL Low 3.90-5.60 [facility] Comment on above: Performed By: #### C MP, CBC #### [facility] [address] WBC (Bld) [#/Vol] 17.5 10*3/uL High 4.1-10.5 [facility] Comment on above: Performed By: #### C MP, CBC #### [facility] [address] Creatinine [Mass/volume] in Serum or PlasmaOrdered By: Linda Rodriguez on 04-21-2023 Creatinine [Mass/Vol] 1.06 mg/dL 0.70-1.30 [facility] Eosinophils Auto (Bld) [#/Vo l]Ordered By: Linda Rodriguez on 04-21-2023 Eosinophils (Bld) [#/Vol] 0.0 10*3/uL 0.0-0.45 [facility] Eosinophils/100 WBC Auto (Bl d)Ordered By: Linda Rodriguez on 04-21-2023 Eosinophils/100 WBC (Bld) 0.0 % . [facility] Erythrocyte distribution wid th Auto (RBC) [Ratio]Ordered By: Linda Rodriguez on 04-21-2023 Erythrocyte distribution width (RBC) [Ratio] 13.8 % 12.0-14.8 [facility] Glucose [Mass/volume] in Ser um or PlasmaOrdered By: Linda Rodriguez on 04-21-2023 Glucose [Mass/Vol] 130 mg/dL 70-100 [facility] Comment on above: ADA recommended refe rence rangeRandom Glucose Reference Range is dependent on time and content of last meal. Glucose of more than 200 mg/dL in a nonstressed, ambulatory subject supports the diagnosis of Diabetes Mellitus. Hematocrit Auto (Bld) [Volum e fraction]Ordered By: Linda Rodriguez on 04-21-2023 Hematocrit (Bld) [Volume fraction] 31.7 % 38.8-50.0 [facility] Hemoglobin [Mass/volume] in BloodOrdered By: Linda Rodriguez on 04-21-2023 Hemoglobin (Bld) [Mass/Vol] 10.6 g/dL 13.0-17.0 [facility] Leukocytes [#/volume] correc teressa for nucleated erythrocytes in Blood by Automated counOrdered By: Linda Rodriguez on 04-21-2023 WBC corrected for nucl RBC Auto (Bld) [#/Vol] 17.5 10*3/uL 4.1-10.5 [facility] Lymphocytes Auto (Bld) [#/Vo l]Ordered By: Linda Rodriguez on 04-21-2023 Lymphocytes (Bld) [#/Vol] 0.7 10*3/uL 1.00-4.8 [facility] Lymphocytes/100 WBC Auto (Bl d)Ordered By: Linda Rodriguez on 04-21-2023 Lymphocytes/100 WBC (Bld) 3.9 % . [facility] MCH Auto (RBC) [Entitic mass ]Ordered By: Linda Rodriguez on 04-21-2023 MCH (RBC) [Entitic mass] 31.1 pg 27.5-35.2 [facility] MCHC Auto (RBC) [Mass/Vol]Or dered By: Linda Rodriguez on 04-21-2023 MCHC (RBC) [Mass/Vol] 33.5 g/dL 32.5-35.6 [facility] MCV Auto (RBC) [Entitic vol] Ordered By: Linda Rodriguez on 04-21-2023 MCV (RBC) [Entitic vol] 92.8 fL 83.5-101 [facility] Monocytes Auto (Bld) [#/Vol] Ordered By: Linda Rodriguez on 04-21-2023 Monocytes (Bld) [#/Vol] 0.8 10*3/uL 0.0-0.8 [facility] Monocytes/100 WBC Auto (Bld) Ordered By: Linda Rodriguez on 04-21-2023 Monocytes/100 WBC (Bld) 4.6 % . [facility] Neutrophils Auto (Bld) [#/Vo l]Ordered By: Linda Rodriguez on 04-21-2023 Neutrophils (Bld) [#/Vol] 16.0 10*3/uL 1.8-7.7 [facility] Neutrophils/100 WBC Auto (Bl d)Ordered By: Linda Rodriguez on 04-21-2023 Neutrophils/100 WBC (Bld) 91.3 % . [facility] No Panel InformationOrdered By: Linda Rodriguez on 04-21-2023 Estimated GFR (CKD-EPI) > 60.0 mL/Min [facility] Creatinine Clearance (Chem 54.31 [facility] Nucleated erythrocytes [Pres ence] in Blood by Automated countOrdered By: Linda Rodriguez on 04-21-2023 Nucleated RBC Auto Ql (Bld) 0.0 /100{WBC} 0-0.5 [facility] Platelet mean volume Auto (B ld) [Entitic vol]Ordered By: Linda Rodriguez on 04-21-2023 Platelet mean volume (Bld) [Entitic vol] 8.1 fL 6.6-10.1 [facility] Platelets Auto (Bld) [#/Vol] Ordered By: Linda Rodriguez on 04-21-2023 Platelets (Bld) [#/Vol] 244 10*3/uL 150-450 [facility] Potassium [Moles/volume] in Serum or PlasmaOrdered By: Linda Rodriguez on 04-21-2023 Potassium [Moles/Vol] 4.0 mmol/L 3.5-5.1 [facility] RBC Auto (Bld) [#/Vol]Ordere d By: Linda Rodriguez on 04-21-2023 RBC (Bld) [#/Vol] 3.41 10*6/uL 3.90-5.60 [facility] Redraw Potassiumon Potassium [Moles/Vol] 4.0 mmol/L Normal 3.5-5.1 [facility] Comment on above: Order Comment: SPECI MEN HEMOLYZED. NOTIFIED TROY. Result Comment: PERF ORMED BY: [facility] [address] [place] [address] PATHOLOGIST MECHANICAL APPLICATIONS ENGINEER NOAH PINEDA M.D. Performed By: #### C MP, CBC #### [facility] [address] Serum or plasma anion gap de terminationOrdered By: Linda Rodriguez on 04-21-2023 Anion gap [Moles/Vol] TNP [facility] Comment on above: Test not performed Sodium [Moles/volume] in Ser um or PlasmaOrdered By: Linda Rodriguez on 04-21-2023 Sodium [Moles/Vol] 137 mmol/L 136-145 [facility] Urea nitrogen [Mass/volume] in Serum or PlasmaOrdered By: Linda Rodriguez on 04-21-2023 Urea nitrogen [Mass/Vol] 19 mg/dL 7-25 [facility] WBC Auto (Bld) [#/Vol]Ordere d By: Linda Rodriguez on 04-21-2023 WBC (Bld) [#/Vol] 17.5 10*3/uL 4.1-10.5 [facility] ABO/Rh Retypeon 04-20-2023 ABO/RH Recheck Result Positive Normal [facility] Comment on above: Order Comment: Pleas e send a phleb per Lori in [place]. MLG Result Comment: PERF ORMED BY: [address] [place] [address] PATHOLOGIST MECHANICAL APPLICATIONS ENGINEER NOAH PINEDA M.D. Activated Clotting Timeon Activated Clotting Time POC 250 s High 90-139 [facility] Comment on above: Result Comment: Refe rence Range: 90-139 (Non-heparinized) PERFORMED BY: [address] [place] [address] PATHOLOGIST MECHANICAL APPLICATIONS ENGINEER NOAH PINEDA M.D. Performed By: #### A CT #### [facility] [address] [place], [place] [id number] [facility] Blood activated clotting lynda e by coagulation assayOrdered By: Linda Rodriguez on 04-20-2023 ACT Coag (Bld) 250 s 90-139 [facility] Comment on above: Reference Range: 90- 139 (Non-heparinized) Glucose Poct Glucometerson 1 06-21-2022 Glucose [Mass/Vol] 156 mg/dL Normal [facility] Comment on above: Result Comment: [place] Glucose Reference Range is dependent on time and content of last meal. Glucose of more than 200 mg/dL in a nonstressed, ambulatory subject supports the diagnosis of Diabetes Mellitus. Performed By: #### G LULS #### Point of Care testing , Glucose [Mass/Vol] 154 mg/dL Normal [facility] Comment on above: Result Comment: [place] Glucose Reference Range is dependent on time and content of last meal. Glucose of more than 200 mg/dL in a nonstressed, ambulatory subject supports the diagnosis of Diabetes Mellitus. PERFORMED BY: [place] [address] PATHOLOGIST MECHANICAL APPLICATIONS ENGINEER NOAH PINEDA M.D. Performed By: #### C MP, CBC #### [address] Commemt1 Glu2: Cleaned Meter Normal [facility] Comment on above: Result Comment: PERF ORMED BY: [place] [address] PATHOLOGIST MECHANICAL APPLICATIONS ENGINEER NOAH PINEDA M.D. Performed By: #### G LULS #### Point of Care testing , Performed By: #### I SCRE #### [address] Glucose [Mass/Vol] 118 mg/dL Normal [facility] Comment on above: Result Comment: [place] Glucose Reference Range is dependent on time and content of last meal. Glucose of more than 200 mg/dL in a nonstressed, ambulatory subject supports the diagnosis of Diabetes Mellitus. Performed By: #### I SCRE #### [place] [address] [place] Zack 04-20-2023 L Specimen: [id number] Received: 04/20/23 Status: KARIN Ames Num: [id number] Spec Type: Surgical Subm Dr: Linda Rodriguez MD Tissues: A Artery - Aneurysm (RT FEM ART ANERYSM) Procedures: Kathy MCLEAN/Phil L3 Age/ Patient Sex Location Account Attending Physician Sebastian Diego 77/M 4N [id number] Linda Rodriguez MD SPEC NUM: [id number] RECD: 04/20/23 STATUS: KARIN AMES NUM: [id number] ALLISON: 04/20/[address]: Linda Rodriguez MD ENTERED: 04/20/[address] [facility] [address]: SPEC TYPE: Surgical DEPT: S ENTERED BY: [id number] RECV BY: [id number] ORDERED: CARIDAD Gross/Micro L3 ORDERED: Kathy MCLEAN/Micro L3 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 Clinical Information Right common femoral artery aneurysm Gross Description Received in formalin labeled with the patient's name, date of and right femoral artery aneurysm is an 11.0 x 10.0 x 6.3 cm yellow-renteria, rubbery, membranous tissue that has been previously partially incised revealing a cystic structure containing red-brown semisolid material with a laminated appearance.. 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 Microscopic Description One H E slide reviewed. The microscopic examination confirms the diagnosis. CPT Codes 53179 Specimen: [id number] Received: 04/20/23 Status: KARIN Juvencio Num: [id number] Spec Type: Surgical Subm Dr: Linda Rodriguez MD Tissues: A Artery - Aneurysm (RT FEM ART ANERYSM) Procedures: Kathy MCLEAN/hPil L3 Patient: Sebastian Diego [id number] (Continued) Signed (signature on file) Niko Naranjo MD 04/21/232201 [facility] LeukoReduced RBCon LeukoReduced RBC READY [facility] Type and Screenon 04-20-2023 ABO and Rh group Nom (Bld) Blood group O Rh(D) positive [facility] Comment on above: Order Comment: Trans fuse now? N Result Comment: PERF ORMED BY: [facility] [address] [place] [address] PATHOLOGIST MECHANICAL APPLICATIONS ENGINEER NOAH PINEDA M.D. 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 Your Care Team Attending Physician - JESUS DEAL, Sancho Narayanan Primary Care Physician - CARMELITA ZAVALA CNP This Is Your Medications List tamsulosin (Flomax 0.4 mg Cap) Contact prescribing physician if questions or concerns Misc Prescription (RA VITAMIN D3 2,000 UNIT SFGL) aspirin (aspirin 81 mg Oral EC Tab) atorvastatin (Lipitor 10 mg Tab) ciprofloxacin (ciprofloxacin 500 mg Tab) clopidogrel (clopidogrel 75 mg Tab) duloxetine (duloxetine 30 mg oral delayed release capsule) ibuprofen (ibuprofen 200 mg oral capsule) levothyroxine (levothyroxine 50 mcg (0.05 mg) Tab) lisinopril (lisinopril 5 mg Tab) metformin (metformin 500 mg Tab) potassium chloride (Potassium Chloride (Ijx-Znmq-Djd 10) 10 mEq oral tablet, extended release) pregabalin (Lyrica 150 mg Cap) Procedures Performed Cystoscopy and retrograde pyelography (04/18/2021), Cystoscopy (01/11/2019), Repair of aneurysm (2009), Arthroscopy of knee (1967), Amputation of leg, Colonoscopy, Excision of cataract, tonsillectomy. Discharge Vitals Heart Rate (Peripheral) 75 Respiratory Rate 16 Blood Pressure 138/88 Weight 84 kg Weight 184.8 lb What to do next You Need to Schedule the Following Appointments Follow Up with JESUS DEAL, ERNA Vidal When: Where: [address] [place] [address]- Medications What How Much When Instructions Unchanged tamsulosin (Flomax 0.4 mg Cap) 1 Capsules By Mouth Every day Unchanged aspirin (aspirin 81 mg Oral EC Tab) 1 Tablets By Mouth Every day Contact prescribing physician if questions or concerns Unchanged atorvastatin (Lipitor 10 mg Tab) 1 Tablets By Mouth Every day Contact prescribing physician if questions or concerns Unchanged ciprofloxacin (ciprofloxacin 500 mg Tab) Contact prescribing physician if questions or concerns Unchanged clopidogrel (clopidogrel 75 mg Tab) 1 Tablets By Mouth Every day Contact prescribing physician if questions or concerns Unchanged duloxetine (duloxetine 30 mg oral delayed release capsule) Contact prescribing physician if questions or concerns Unchanged ibuprofen (ibuprofen 200 mg oral capsule) 1 Capsules By Mouth Every 6 hours as needed for as needed for pain Contact prescribing physician if questions or concerns Unchanged levothyroxine (levothyroxine 50 mcg (0.05 mg) Tab) 1 Tablets By Mouth Every day Contact prescribing physician if questions or concerns Unchanged lisinopril (lisinopril 5 mg Tab) 1 Tablets By Mouth Every day Contact prescribing physician if questions or concerns Unchanged metformin (metformin 500 mg Tab) Contact prescribing physician if questions or concerns Unchanged Misc Prescription (RA VITAMIN D3 2,000 UNIT SFGL) 0 Contact prescribing physician if questions or concerns Unchanged potassium chloride (Potassium Chloride (Lwb-Kaip-Cfi 10) 10 mEq oral tablet, extended release) Contact prescribing physician if questions or concerns Unchanged pregabalin (Lyrica 150 mg Cap) By Mouth 2 times a day Contact prescribing physician if questions or concerns Allergies beta blockers (Weakness, Vomiting, Dizziness) Problems Ongoing - Any problem that you are currently receiving treatment for. Aneurysm of artery Anticoagulated Asymptomatic microscopic hematuria At risk for falls BPH with urinary obstruction Elevated PSA Feeling of incomplete bladder emptying Gross hematuria History of prostatitis HTN - Hypertension Kidney stones Microscopic hematuria PVD Stroke Ureteral stone Urge incontinence Urinary retention Urinary urgency Weak urinary stream Historical - Any problem that you are no longer receiving treatment for. Aneurysm DVT gout Hypercholesterolemia Infection of urinary tract Straining to void Urine frequency Patient Survey You may receive a survey via text or e-mail asking about your office visit. Please share your experience with us by completing your survey. We appreciate your feedback and thank you for choosing us for your care. Education Materials Acute Urinary Retention, Male Acute urinary retention is a condition in which a person is unable to pass urine or can only pass a little urine. This condition can happen suddenly and last for a short time. If left untreated, it can become long-term (chronic) and result in kidney damage or other serious complications. What are the causes? This condition may be caused by: ? Obstruction or narrowing of the tube that drains the bladder (urethra). This may be caused by surgery, problems with nearby organs, or injury to the bladder or urethra. ? Problems with the nerves in the bladder. ? Tumors in the area of the pelvis, bladder, or urethra. ? Certain medicines. ? Bladder (more content not included)... Normal [facility] ED Note-Physicianon 04-17-20 ED Note-Physician [id number] 6#[id number] [facility] Patient Educationon 04-17-20 Patient Education Urology Acute Urinary Retention, Male Acute urinary retention is a condition in which a person is unable to pass urine or can only pass a little urine. This condition can happen suddenly and last for a short time. If left untreated, it can become long-term (chronic) and result in kidney damage or other serious complications. What are the causes? This condition may be caused by: ? Obstruction or narrowing of the tube that drains the bladder (urethra). This may be caused by surgery, problems with nearby organs, or injury to the bladder or urethra. ? Problems with the nerves in the bladder. ? Tumors in the area of the pelvis, bladder, or urethra. ? Certain medicines. ? Bladder or urinary tract infection. ? Constipation. What increases the risk? This condition is more likely to develop in older men. As men age, their prostate may become larger and may start to press or squeeze on the bladder or the urethra. Other chronic health conditions can increase the risk of acute urinary retention. These include: ? Diseases such as multiple sclerosis. ? Spinal cord injuries. ? Diabetes. ? Degenerative cognitive conditions, such as delirium or dementia. ? Psychological conditions. A man may hold his urine due to trauma or because he does not want to use the bathroom. What are the signs or symptoms? Symptoms of this condition include: ? Trouble urinating. ? Pain in the lower abdomen. How is this diagnosed? This condition is diagnosed based on a physical exam and your medical history. You may also have other tests, including: ? An ultrasound of the bladder or kidneys or both. ? Blood tests. ? A urine analysis. ? Additional tests may be needed, such as a CT scan, MRI, and kidney or bladder function tests. How is this treated? Treatment for this condition may include: ? Medicines. ? Placing a thin, sterile tube (catheter) into the bladder to drain urine out of the body. This is called an indwelling urinary catheter. After it is inserted, the catheter is held in place with a small balloon that is filled with sterile water. Urine drains from the catheter into a collection bag outside of the body. ? Behavioral therapy. ? Treatment for other conditions. If needed, you may be treated in the hospital for kidney function problems or to manage other complications. Follow these instructions at home: Medicines ? Take gilv-nuz-lyvqpgx and prescription medicines only as told by your health care provider. Avoid certain medicines, such as decongestants, antihistamines, and some prescription medicines. Do not take any medicine unless your health care provider approves. ? If you were prescribed an antibiotic medicine, take it as told by your health care provider. Do not stop using the antibiotic even if you start to feel better. General instructions ? Do not use any products that contain nicotine or tobacco. These products include cigarettes, chewing tobacco, and vaping devices, such as e-cigarettes. If you need help quitting, ask your health care provider. ? Drink enough fluid to keep your urine pale yellow. ? If you have an indwelling urinary catheter, follow the instructions from your health care provider. ? Monitor any changes in your symptoms. Tell your health care provider about any changes. ? If instructed, monitor your blood pressure at home. Report changes as told by your health care provider. ? Keep all follow-up visits. This is important. Contact a health care provider if: ? You have uncomfortable bladder contractions that you cannot control (spasms). ? You leak urine with the spasms. Get help right away if: ? You have chills or a fever. ? You have blood in your urine. ? You have a catheter and the following happens: ? Your catheter stops draining urine. ? Your catheter falls out. Summary ? Acute urinary retention is a condition in which a person is unable to pass urine or can only pass a little urine. If left untreated, this condition can result in kidney damage or other serious complications. ? An enlarged prostate may cause this condition. As men age, their prostate gland may become larger and may press or squeeze on the bladder or the urethra. ? Treatment for this condition may include medicines and placement of an indwelling urinary catheter. ? Monitor any changes in your symptoms. Tell your health care provider about any changes. This information is not intended to replace advice given to you by your health care provider. Make sure you discuss any questions you have with your health care provider. Document Revised: 01/09/2021 Document Reviewed: 01/09/2021 [employer] Patient Education ? [address] [employer] [facility] Urology Office/Clinic Noteon 04-17-2023 Urology Office/Clinic Note Chief Complaint urinary retention HPI Staff Pt last seen in our office 11/21/22 DX: Elevated PSA, BPH & Microscopic Hematuria *Taking Flomax 0.4 mg qd through PCP. MRI of Prostate ordered. 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 Surgery scheduled for 04/20/23 w/Dr. Lemus. TRUS/Bx at tertiary center recommended. Pt's son called our office 03/13/23 c/o of swollen/pain with testicles and leaking urine with movement, urine starting /stopping all the time. Pt given Doxy 100mg BID x 3 weeks (later switched to Levaquin) at that time & chen inserted. Pt then went to [facility] ER 04/09/23 due to catheter not draining. PVR 650ml. Catheter was replaced. +C&S 04/09/23 >100k proteus vulgaris & >100k Providencia rettgeri Pt is scheduled this coming up Thursday for surgery for his aneurysm at [facility]. He has also hurt his right wrist. Swelling and redness noted. Happened 3 days ago after a fall. Pt son is taking him to ED after this OV. History of Present Illness Tests reviewed: reviewed MRI. I have reviewed the previous health record information and history for this patient from Dr. Lee. I have reviewed and verified the staff HPI to be accurate for this encounter. There have been no associated fever, chills, flank pain, or blood in the urine. Denies any urinary infections since last encounter. Review of Systems PHQ Score Initial Depression Screen Score: 0 SCORE ROS - Provider Constitutional: denies weight loss, denies hot flashes. Eyes: denies eye problems. Gastrointestinal: denies nausea, denies vomiting. Cardiovascular: denies chest pain or angina. Integumentary: no dryness Musculoskeletal: denies musculoskeletal symptoms. ENMT: denies otolaryngeal symptoms. Respiratory: no shortness of breath. Heme/Lymph: denies easy bleeding tendency, denies easy bruising tendency. Psychiatric: no confusion, no anxiety. Genitourinary: See HPI. Physical Exam Vitals & Measurements HR: 75(Peripheral) RR: 16 BP: 138/88 WT: 84 kg WT: 184.8 lb General Appearance: alert, no distress, well nourished, well developed male. Genitourinary: normal scrotum, normal testes, normal urethra, normal epididymis, normal vas deferens/spermatic cord. Flank Pain: none. Bladder: Has Chen. Assessment/Plan Pt recently hurt his right wrist. Swelling and redness noted. Happened 3 days ago after a fall. Pt son is taking him to ED after this OV. 1. Elevated PSA (R97.20: Elevated prostate specific antigen [PSA]) PSA: 07/31/19 - 1.500 03/14/21 - 2.900 & 29% 08/25/22 - 15.04 & 21%(treated with Doxycycline 100mg BID x3wks therapy) 11/17/22 - 23.70 & 19% MRI of prostate 02/10/23 the peripheral zone is diffusely T2 hypointense with associated restricted diffusion and low ADC value. This appears to extend into the left aspect of the transitional zone. PI-RADS 5. 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 Discussed hormone replacement therapy to be started after tissue diagnosis is made. Plan to have bx done within a month from aneurysm repair. Son to call with an update. -PSA drawn IO today 2. Urinary retention (R33.9: Retention of urine, unspecified) Pt's son called our office 03/13/23 c/o of testicular swelling and pain, leaking urine with movement, urine starting and stopping all the time. Given Doxycycline 100mg BID x 3 weeks (later switched to Levaquin) at that time & chen inserted. Pt later presented to [facility] ER 04/09/23 due to catheter not draining. PVR 650ml. Catheter was replaced. today, chen was twisted and wrapped around the patient. leg bag was placed and taped/strapped to his R stump. 3. History of prostatitis (Z87.438: Personal history of other diseases of male genital organs) UCx: 04/09/23 - >100k proteus vulgaris & >100k Providencia rettgeri, tx'd Doxycycline 100mg BID x 3 weeks (later switched to Levaquin) See #2 4. BPH with urinary obstruction (N40.1: Benign prostatic hyperplasia with lower urinary tract symptoms) Taking Flomax 0.4mg qd through PCP. Prostate volume upon MRI - 25 mL Currently has Chen. 5. Aneurysm of artery (I72.9: Aneurysm of unspecified site) MRI of prostate 02/10/23 mass involving the right inguinal region partially visualized on today's study possibly extending from the right femoral artery suspicious for underlying aneurysm. This measures approx 10.2 x 6.1 cm in greatest axial dimensions. 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 Surgery scheduled for 04/20/23 w/Dr. Lemus. See #1 Follow-up With When Contact Information JESUS DEAL, Sancho Narayanan, URL [address] [place], [place] [id number]- Additional Instructions: Prostate bx after aneurysm repair Patient Education Acute Urinary Retention, Male I, Jie Ruiz, personally scribed for Dr. Lee on 04/17/2023 10:26:56. . Documentation recorded by the scribe, Jie Ruiz, accurately reflects the services(s) I performe (more content not included)... Normal [facility] Comment on above: Result Comment: Elec tronically Signed By: Sancho LEE MD\.br\Date and Time Signed: 04/17/23 10:33 EST\.br\Electronically Co-Signed By: Jie Ruiz\.br\Date and Time Co-Signed: 04/17/23 10:27 EST\.br\Electronically Co-Signed By: Jie Ruiz\.br\Date and Time Co-Signed: 04/17/23 10:27 EST\.br\Electronically Co-Signed By: Jie Ruiz\.br\Date and Time Co-Signed: 04/17/23 10:29 EST XR wrist RT min 3V*on 2022 XR wrist RT min 3V* [facility] [place] [address] XRay Report Signed Patient: Sebastian Diego MR#: [id number] : 1945 Acct:[id number] Age/Sex: 77 / M ADM Date: 04/17/23 Loc: ER Room: Type: PRE ER Attending Dr: Copies to: CASIMIRO Ragland Ordering Provider: CASIMIRO Ragland Date of Service: 04/17/23 XR/XR wrist RT min 3V*: Extremity Injury, Upper 4 views right wrist plain film COMPARISON: None HISTORY: Fell 5 days ago. Right wrist pain ACUTE FINDINGS: None DEGENERATIVE CHANGE: Moderate changes. SOFT TISSUE FINDINGS: Unremarkable JOINT EFFUSION: None POSTOP CHANGES: None BONE MINERALIZATION: Adequate XR/XR wrist RT min 3V* IMPRESSION: No acute bony findings. Impression dictated by: Hugh Gates M.D.04/17/2023 5:21 PM Dictation Location: [place] [address] Transcribed By: [facility] 04/17/23 172 Dictated By: Hugh Gates DO 04/17/23 1718 Signed By: 04/17/23 172 [facility] Lab Reportson 04-14-2023 Lab Reports [id number] #1.00TIFF Normal [facility] Lab Reports [id number] #1.00TIFF Normal [facility] Alanine aminotransferase [En zymatic activity/volume] in Serum or PlasmaOrdered By: Linda Rodriguez on 04-13-2023 ALT [Catalytic activity/Vol] 8 U/L 7-52 [facility] Albumin [Mass/volume] in Ser um or Plasma by Bromocresol green (BCG) dye binding methoOrdered By: Linda Rodriguez on 04-13-2023 Albumin BCG dye [Mass/Vol] 3.4 g/dL 3.5-5.7 [facility] Alkaline phosphatase [Enzyma tic activity/volume] in Serum or PlasmaOrdered By: Linda Rodriguez on 04-13-2023 ALP [Catalytic activity/Vol] 152 U/L 34-104 [facility] Aspartate aminotransferase [ Enzymatic activity/volume] in Serum or PlasmaOrdered By: Linda Rodriguez on 04-13-2023 AST [Catalytic activity/Vol] 13 U/L 13-39 [facility] Automated erythrocytes count in urine sediment (number/area)Ordered By: Linda Rodriguez on 04-13-2023 RBC Auto (Urine sed) [#/Area] 5-9 [HPF] 0-4 [facility] Automated leukocytes count i n urine sediment (number/area)Ordered By: Linda Rodriguez on 04-13-2023 WBC Auto (Urine sed) [#/Area] Innumerable [HPF] 0-4 [facility] Basophils Auto (Bld) [#/Vol] Ordered By: Linda Rodriguez on 04-13-2023 Basophils (Bld) [#/Vol] 0.1 10*3/uL 0.0-0.2 [facility] Basophils/100 WBC Auto (Bld) Ordered By: Linda Rodriguez on 04-13-2023 Basophils/100 WBC (Bld) 0.9 % . [facility] Bilirubin Test strip Ql (U)O rdered By: Linda Rodriguez on 04-13-2023 Bilirubin Ql (U) Negative Negative [facility] Bilirubin.total [Mass/volume ] in Serum or PlasmaOrdered By: Linda Rodriguez on 04-13-2023 Bilirubin [Mass/Vol] 1.0 mg/dL 0.3-1.0 [facility] Calcium [Mass/volume] in Ser um or PlasmaOrdered By: Linda Rodriguez on 04-13-2023 Calcium [Mass/Vol] 8.9 mg/dL 8.6-10.3 [facility] Carbon dioxide, total [Moles /volume] in Serum or PlasmaOrdered By: Linda Rodriguez on 04-13-2023 CO2 [Moles/Vol] 28.7 mmol/L 21.0-31.0 [facility] Chloride [Moles/volume] in S colleen or PlasmaOrdered By: Linda Rodriguez on 04-13-2023 Chloride [Moles/Vol] 106 mmol/L 98-107 [facility] Color Auto (U)Ordered By: Brian Rodriguez on 04-13-2023 Color (U) Yellow Yellow [facility] Complete Blood Count Auto Di ffon 04-13-2023 Basophils (Bld) [#/Vol] 0.1 10*3/uL Normal 0.0-0.2 [facility] Comment on above: Result Comment: PERF ORMED BY: [place] [address] PATHOLOGIST MECHANICAL APPLICATIONS ENGINEER NOAH PINEDA M.D. Performed By: #### C MP, CBC #### [facility] [address] [place] [address] [place] Basophils/100 WBC (Bld) 0.9 % Normal . [facility] Comment on above: Performed By: #### C MP, CBC #### [facility] [address] [place] [address] [place] Eosinophils (Bld) [#/Vol] 0.3 10*3/uL Normal 0.0-0.45 [facility] Comment on above: Performed By: #### C MP, CBC #### [facility] [address] [place] [address] [place] Eosinophils/100 WBC (Bld) 4.9 % Normal . [facility] Comment on above: Performed By: #### C MP, CBC #### [facility] [address] Erythrocyte distribution width (RBC) [Ratio] 13.9 % Normal 12.0-14.8 [facility] Comment on above: Performed By: #### C MP, CBC #### [facility] [address] Hematocrit (Bld) [Volume fraction] 40.7 % Normal 38.8-50.0 [facility] Comment on above: Performed By: #### C MP, CBC #### [facility] [address] Hemoglobin (Bld) [Mass/Vol] 14.1 g/dL Normal 13.0-17.0 [facility] Comment on above: Performed By: #### C MP, CBC #### [address] Lymphocytes (Bld) [#/Vol] 1.4 10*3/uL Normal 1.00-4.8 [facility] Comment on above: Performed By: #### C MP, CBC #### [address] Lymphocytes/100 WBC (Bld) 19.8 % Normal . [facility] Comment on above: Performed By: #### C MP, CBC #### [address] MCH (RBC) [Entitic mass] 32.0 pg Normal 27.5-35.2 [facility] Comment on above: Performed By: #### C MP, CBC #### [facility] [address] MCV (RBC) [Entitic vol] 92.2 fL Normal 83.5-101 [facility] Comment on above: Performed By: #### C MP, CBC #### [address] Mean Corpuscular HGB Conc 34.7 g/dL Normal 32.5-35.6 [facility] Comment on above: Performed By: #### C MP, CBC #### [facility] [address] [place] [address] [place] Monocytes (Bld) [#/Vol] 0.5 10*3/uL Normal 0.0-0.8 [facility] Comment on above: Performed By: #### C MP, CBC #### [facility] [address] [place] [address] [place] Monocytes/100 WBC (Bld) 7.1 % Normal . [facility] Comment on above: Performed By: #### C MP, CBC #### [facility] [address] [place] [address] [place] Neutrophils (Bld) [#/Vol] 4.7 10*3/uL Normal 1.8-7.7 [facility] Comment on above: Performed By: #### C MP, CBC #### [facility] [address] Neutrophils/100 WBC (Bld) 67.3 % Normal . [facility] Comment on above: Performed By: #### C MP, CBC #### [facility] [address] [place] [address] [place] NRBC% 0.1 /100{WBC} Normal 0-0.5 [facility] Comment on above: Performed By: #### C MP, CBC #### [facility] [address] [place] [address] [place] Platelet mean volume (Bld) [Entitic vol] 8.2 fL Normal 6.6-10.1 [facility] Comment on above: Performed By: #### C MP, CBC #### [facility] [address] [place] [address] [place] Platelets (Bld) [#/Vol] 248 10*3/uL Normal 150-450 [facility] Comment on above: Performed By: #### C MP, CBC #### [facility] [address] [place] [address] [place] RBC (Bld) [#/Vol] 4.41 10*6/uL Normal 3.90-5.60 [facility] Comment on above: Performed By: #### C MP, CBC #### [facility] [address] [place] [address] WBC (Bld) [#/Vol] 6.9 10*3/uL Normal 4.1-10.5 [facility] Comment on above: Performed By: #### C MP, CBC #### [facility] [address] [place] [address] Comprehensive Metabolic Pane zack 04-13-2023 Albumin [Mass/Vol] 3.4 g/dL Low 3.5-5.7 [facility] Comment on above: Performed By: #### C MP, CBC #### [address] Albumin/Globulin [Mass ratio] 1.3 {ratio} Normal [facility] Comment on above: Performed By: #### C MP, CBC #### [address] ALP [Catalytic activity/Vol] 152 U/L High 34-104 [facility] Comment on above: Result Comment: PERF ORMED BY: [place] [address] PATHOLOGIST MECHANICAL APPLICATIONS ENGINEER NOAH PINEDA M.D. Performed By: #### C MP, CBC #### [address] ALT [Catalytic activity/Vol] 8 U/L Normal 7-52 [facility] Comment on above: Performed By: #### C MP, CBC #### [address] Anion gap [Moles/Vol] 11.4 mmol/L Normal 6.0-15.0 [facility] Comment on above: Performed By: #### C MP, CBC #### [address] AST [Catalytic activity/Vol] 13 U/L Normal 13-39 [facility] Comment on above: Performed By: #### C MP, CBC #### [address] [place] [address] [place] Bilirubin [Mass/Vol] 1.0 mg/dL Normal 0.3-1.0 [facility] Comment on above: Performed By: #### C MP, CBC #### [facility] [address] Calcium [Mass/Vol] 8.9 mg/dL Normal 8.6-10.3 [facility] Comment on above: Performed By: #### C MP, CBC #### [facility] [address] Chloride [Moles/Vol] 106 mmol/L Normal 98-107 [facility] Comment on above: Performed By: #### C MP, CBC #### [facility] [address] CO2 [Moles/Vol] 28.7 mmol/L Normal 21.0-31.0 [facility] Comment on above: Performed By: #### C MP, CBC #### [facility] [address] Creatinine [Mass/Vol] 1.04 mg/dL Normal 0.70-1.30 [facility] Comment on above: Performed By: #### C MP, CBC #### [facility] [address] [place] [address] [place] GFR/1.73 sq M.predicted MDRD (S/P/Bld) [Vol rate/Area] mL/min/{1.73_m2} Normal [facility] Comment on above: Performed By: #### C MP, CBC #### [facility] [address] [place] [address] [place] Globulin (S) [Mass/Vol] 2.7 g/dL Normal [facility] Comment on above: Performed By: #### C MP, CBC #### [facility] [address] [place] [address] [place] Glucose [Mass/Vol] 101 mg/dL High 70-100 [facility] Comment on above: Result Comment: [facility] Glucose Reference Range is dependent on time and content of last meal. Glucose of more than 200 mg/dL in a nonstressed, ambulatory subject supports the diagnosis of Diabetes Mellitus. ADA recommended reference range Performed By: #### C MP, CBC #### [facility] [address] Potassium [Moles/Vol] 3.1 mmol/L Low 3.5-5.1 [facility] Comment on above: Performed By: #### C MP, CBC #### [facility] [address] [place] [address] [place] Protein [Mass/Vol] 6.1 g/dL Low 6.4-8.9 [facility] Comment on above: Performed By: #### C MP, CBC #### [address] Sodium [Moles/Vol] 143 mmol/L Normal 136-145 [facility] Comment on above: Performed By: #### C MP, CBC #### [facility] [address] [place] [address] [place] Urea nitrogen [Mass/Vol] 13 mg/dL Normal 7-25 [facility] Comment on above: Performed By: #### C MP, CBC #### [place] [address] [place] Creatinine [Mass/volume] in Serum or PlasmaOrdered By: Linda Rodriguez on 04-13-2023 Creatinine [Mass/Vol] 1.04 mg/dL 0.70-1.30 [facility] Dipstick and Microscopicon 1 06-14-2022 Appearance (U) Turbid Critically abnormal Clear [facility] Comment on above: Order Comment: Name Collection Type:: Clean-Voided Midstream Performed By: #### C UU, ADDONUAPLUS #### [facility] [address] [place] [address] [place] Bacteria,Urine 4+ High None Seen [facility] Comment on above: Order Comment: Name Collection Type:: Clean-Voided Midstream Performed By: #### C UU, ADDONUAPLUS #### [place] [address] [place] Bilirubin,Urine Negative Normal Negative [facility] Comment on above: Order Comment: Name Collection Type:: Clean-Voided Midstream Performed By: #### C UU, ADDONUAPLUS #### [facility] [address] [place] [address] [place] Color (U) Yellow Normal Yellow [facility] Comment on above: Order Comment: Name Collection Type:: Clean-Voided Midstream Performed By: #### C UU, ADDONUAPLUS #### [facility] [address] [place] [address] [place] Glucose Ql (U) Normal Normal Normal [facility] Comment on above: Order Comment: Name Collection Type:: Clean-Voided Midstream Performed By: #### C UU, ADDONUAPLUS #### [facility] [address] [place] [address] [place] Hyaline Casts,Urine 0-8 Normal 0-8 [facility] Comment on above: Order Comment: Name Collection Type:: Clean-Voided Midstream Performed By: #### C UU, ADDONUAPLUS #### [facility] [address] [place] [address] [place] Ketones Ql (U) Negative Normal Negative [facility] Comment on above: Order Comment: Name Collection Type:: Clean-Voided Midstream Performed By: #### C UU, ADDONUAPLUS #### [facility] [address] [place] [address] [place] Leukocyte esterase Test strip Ql (U) 4+ High Negative [facility] Comment on above: Order Comment: Name Collection Type:: Clean-Voided Midstream Performed By: #### C UU, ADDONUAPLUS #### [facility] [address] [place] [address] [place] Nitrite,Urine Positive High Negative [facility] Comment on above: Order Comment: Name Collection Type:: Clean-Voided Midstream Performed By: #### C UU, ADDONUAPLUS #### [facility] [address] [place] [address] [place] Occult Blood,Urine 3+ High Negative [facility] Comment on above: Order Comment: Name Collection Type:: Clean-Voided Midstream Result Comment: PERF ORMED BY: [place] [address] PATHOLOGIST MECHANICAL APPLICATIONS ENGINEER NOAH PINEDA M.D. Performed By: #### C UU, ADDONUAPLUS #### [address] pH (U) [pH] Normal 5.0-9.0 [facility] Comment on above: Order Comment: Name Collection Type:: Clean-Voided Midstream Performed By: #### C UU, ADDONUAPLUS #### [address] Protein (U) [Mass/Vol] 300 mg/dL High Negative Fi [facility] Comment on above: Order Comment: Name Collection Type:: Clean-Voided Midstream Performed By: #### C UU, ADDONUAPLUS #### [facility] [address] [place] [address] RBC,Urine 5-9 High 0-4 [facility] Comment on above: Order Comment: Name Collection Type:: Clean-Voided Midstream Performed By: #### C UU, ADDONUAPLUS #### [address] Specificy Alfred,Urine 1.018 Normal 1.001-1.030 [facility] Comment on above: Order Comment: Name Collection Type:: Clean-Voided Midstream Performed By: #### C UU, ADDONUAPLUS #### [address] Squamous Epithelial Cell,Urine 0-1 Normal 0-2 [facility] Comment on above: Order Comment: Name Collection Type:: Clean-Voided Midstream Performed By: #### C UU, ADDONUAPLUS #### [address] Triple Phosphate Crystal,Urine 3+ Normal [facility] Comment on above: Order Comment: Name Collection Type:: Clean-Voided Midstream Performed By: #### C UU, ADDONUAPLUS #### [facility] [address] Urobilinogen,Urine Normal Normal Normal [facility] Comment on above: Order Comment: Name Collection Type:: Clean-Voided Midstream Performed By: #### C UU, ADDONUAPLUS #### [facility] [address] WBC,Urine Innumerable High 0-4 [facility] Comment on above: Order Comment: Name Collection Type:: Clean-Voided Midstream Performed By: #### C UU, ADDONUAPLUS #### [facility] [address] [place] [address] Yeast,Urine None Seen Normal None Seen [facility] Comment on above: Order Comment: Name Collection Type:: Clean-Voided Midstream Result Comment: PERF ORMED BY: [place] [address] PATHOLOGIST MECHANICAL APPLICATIONS ENGINEER NOAH PINEDA M.D. Performed By: #### C UU, ADDONUAPLUS #### [facility] [address] [place] [address] Eosinophils Auto (Bld) [#/Vo l]Ordered By: Linda Rodriguez on 04-13-2023 Eosinophils (Bld) [#/Vol] 0.3 10*3/uL 0.0-0.45 [facility] Eosinophils/100 WBC Auto (Bl d)Ordered By: Linda Rodriguez on 04-13-2023 Eosinophils/100 WBC (Bld) 4.9 % . [facility] Erythrocyte distribution wid th Auto (RBC) [Ratio]Ordered By: Linda Rodriguez on 04-13-2023 Erythrocyte distribution width (RBC) [Ratio] 13.9 % 12.0-14.8 [facility] Globulin Calc (S) [Mass/Vol] Ordered By: Linda Rodriguez on 04-13-2023 Globulin (S) [Mass/Vol] 2.7 g/dL [facility] Glucose [Mass/volume] in Ser um or PlasmaOrdered By: Linda Rodriguez on 04-13-2023 Glucose [Mass/Vol] 101 mg/dL 70-100 [facility] Comment on above: ADA recommended refe rence rangeRandom Glucose Reference Range is dependent on time and content of last meal. Glucose of more than 200 mg/dL in a nonstressed, ambulatory subject supports the diagnosis of Diabetes Mellitus. Hematocrit Auto (Bld) [Volum e fraction]Ordered By: Linda Rodriguez on 04-13-2023 Hematocrit (Bld) [Volume fraction] 40.7 % 38.8-50.0 [facility] Hemoglobin [Mass/volume] in BloodOrdered By: Linda Rodriguez on 04-13-2023 Hemoglobin (Bld) [Mass/Vol] 14.1 g/dL 13.0-17.0 [facility] Ketones Auto test strip (U) [Mass/Vol]Ordered By: Linda Rodriguez on 04-13-2023 Ketones (U) [Mass/Vol] Negative Negative [facility] - UrinalysisOrder ed By: Linda Rodriguez on 04-13-2023 Hyaline casts LM Ql (Urine sed) 0-8 [LPF] 0-8 [facility] Leukocytes [#/volume] correc teressa for nucleated erythrocytes in Blood by Automated counOrdered By: Linda Rodriguez on 04-13-2023 WBC corrected for nucl RBC Auto (Bld) [#/Vol] 6.9 10*3/uL 4.1-10.5 [facility] Lymphocytes Auto (Bld) [#/Vo l]Ordered By: Linda Rodriguez on 04-13-2023 Lymphocytes (Bld) [#/Vol] 1.4 10*3/uL 1.00-4.8 [facility] Lymphocytes/100 WBC Auto (Bl d)Ordered By: Linda Rodriguez on 04-13-2023 Lymphocytes/100 WBC (Bld) 19.8 % . [facility] MCH Auto (RBC) [Entitic mass ]Ordered By: Linda Rodriguez on 04-13-2023 MCH (RBC) [Entitic mass] 32.0 pg 27.5-35.2 [facility] MCHC Auto (RBC) [Mass/Vol]Or dered By: Linda Rodriguez on 04-13-2023 MCHC (RBC) [Mass/Vol] 34.7 g/dL 32.5-35.6 [facility] MCV Auto (RBC) [Entitic vol] Ordered By: Linda Rodriguez on 04-13-2023 MCV (RBC) [Entitic vol] 92.2 fL 83.5-101 [facility] Magnesium ammonium phosphate crystal detectionOrdered By: Linda Rodriguez on 04-13-2023 Triple phosphate crystals LM Ql (Urine sed) 3+ [HPF] [facility] Monocytes Auto (Bld) [#/Vol] Ordered By: Linda Rodriguez on 04-13-2023 Monocytes (Bld) [#/Vol] 0.5 10*3/uL 0.0-0.8 [facility] Monocytes/100 WBC Auto (Bld) Ordered By: Linda Rodriguez on 04-13-2023 Monocytes/100 WBC (Bld) 7.1 % . [facility] Neutrophils Auto (Bld) [#/Vo l]Ordered By: Linda Rodriguez on 04-13-2023 Neutrophils (Bld) [#/Vol] 4.7 10*3/uL 1.8-7.7 [facility] Neutrophils/100 WBC Auto (Bl d)Ordered By: Linda Rodriguez on 04-13-2023 Neutrophils/100 WBC (Bld) 67.3 % . [facility] Nitrite Test strip Ql (U)Ord ered By: Linda Rodriguez on 04-13-2023 Nitrite Ql (U) Positive Negative [facility] No Panel InformationOrdered By: Linda Rodriguez on 04-13-2023 Estimated GFR (CKD-EPI) > 60.0 mL/Min [facility] Creatinine Clearance (Chem N/A [facility] Nucleated erythrocytes [Pres ence] in Blood by Automated countOrdered By: Linda Rodriguez on 04-13-2023 Nucleated RBC Auto Ql (Bld) 0.1 /100{WBC} 0-0.5 [facility] Platelet mean volume Auto (B ld) [Entitic vol]Ordered By: Linda Rodriguez on 04-13-2023 Platelet mean volume (Bld) [Entitic vol] 8.2 fL 6.6-10.1 [facility] Platelets Auto (Bld) [#/Vol] Ordered By: Linda Rodriguez on 04-13-2023 Platelets (Bld) [#/Vol] 248 10*3/uL 150-450 [facility] Potassium [Moles/volume] in Serum or PlasmaOrdered By: Linda Rodriguez on 04-13-2023 Potassium [Moles/Vol] 3.1 mmol/L 3.5-5.1 [facility] Protein Auto test strip (U) [Mass/Vol]Ordered By: Linda Rodriguez on 04-13-2023 Protein (U) [Mass/Vol] 300 mg/dL Negative Fi [facility] Protein [Mass/volume] in Ser um or PlasmaOrdered By: Linda Rodriguez on 04-13-2023 Protein [Mass/Vol] 6.1 g/dL 6.4-8.9 [facility] RBC Auto (Bld) [#/Vol]Ordere d By: Linda Rodriguez on 04-13-2023 RBC (Bld) [#/Vol] 4.41 10*6/uL 3.90-5.60 [facility] Serum or plasma albumin/glob ulin mass ratioOrdered By: Linda Rodriguez on 04-13-2023 Albumin/Globulin [Mass ratio] 1.3 {ratio} [facility] Serum or plasma anion gap de terminationOrdered By: Linda Rodriguez on 04-13-2023 Anion gap [Moles/Vol] 11.4 mmol/L 6.0-15.0 [facility] Sodium [Moles/volume] in Ser um or PlasmaOrdered By: Linda Rodriguez on 04-13-2023 Sodium [Moles/Vol] 143 mmol/L 136-145 [facility] Specific gravity Auto test s trip (U) [Rel density]Ordered By: Linda Rodriguez on 04-13-2023 Specific gravity (U) [Rel density] 1.018 1.001-1.030 [facility] Squamous epithelial cells de tection in urine sediment by light microscopyOrdered By: Linda Rodriguez on 04-13-2023 Epithelial cells.squamous LM Ql (Urine sed) 0-1 [HPF] 0-2 [facility] Urea nitrogen [Mass/volume] in Serum or PlasmaOrdered By: Linda Rodrigeuz on 04-13-2023 Urea nitrogen [Mass/Vol] 13 mg/dL 7 [facility] Urine Cultureon 04-13-2023 Bacteria identified Cx Nom (U) ORGANISM: Proteus vulgaris group (O:PROVULGRP) [place] Count >100,000 ORGANISM: Providencia rettgeri (O:PRORET) [place] Count 75,000 Aerobic BANG Charge (NMIC56) ----- SUSCEPTIBILITY ---- ORGANISM: O:PROVULGRP ANTIBIOTIC INTERPRETATION BANG Amikacin S <16 Amoxacillin/K Clavulanate S <8 Ampicillin/Sulbactam S <4 Aztreonam S <4 Cefepime S <2 Ceftazidime S <1 Ceftriaxone S <1 Ciprofloxacin S <0.25 Ertapenem S <0.5 Gentamicin S <2 Levofloxacin S <0.5 Meropenem S <1 Piperacillin/Tazobac sargent S <8 Tobramycin S 4 Trimethoprim/Sulfame thoxazole S <0.5 Aerobic BANG Charge (NMIC56) ----- SUSCEPTIBILITY ---- ORGANISM: O:PRORET ANTIBIOTIC INTERPRETATION BANG Amikacin S <16 Ampicillin/Sulbactam IB <4 Aztreonam IB <4 Cefepime S <2 Ceftazidime IB 4 Ceftazidime/Avibacta m S <4 Ceftolozane/Tazobact am S <2 Ceftriaxone IB <1 Cefuroxime IB <4 Ciprofloxacin S <0.25 Ertapenem S <0.5 Gentamicin S <2 Levofloxacin S <0.5 Meropenem S <1 Meropenem/Vaborbacta m S <2 Piperacillin/Tazobac sargent IB <8 Tobramycin S <2 Trimethoprim/Sulfame thoxazole S <0.5 S = SUSCEPTIBLE I = INTERMEDIATE R = RESISTANT BLANK = DATA NOT AVAILABLE, OR DRUG NOT ADVISABLE OR TESTED R* = RESISTANCE DUE TO EXTENDED SPECTRUM BETA-LACTAMASES ESBL = EXTENDED SPECTRUM BETA-LACTAMASE TFG = THYMIDINE-DEPENDENT STRAIN COLETTE = BETA-LACTAMASE POSITIVE IB = INDUCIBLE BETA-LACTAMASE. APPEARS IN PLACE OF 'S' WITH SPECIES KNOWN TO POSSESS INDUCIBLE BETA-LACTAMASES. POTENTIALLY THEY MAY BECOME RESISTANT TO ALL B-LACTAM DRUGS. PERFORMED BY: [facility] [address] [place] [address] PATHOLOGIST MECHANICAL APPLICATIONS ENGINEER NOAH PINEDA M.D. [facility] Comment on above: Performed By: #### C UU, ADDONUAPLUS #### [address] Urine bacteria detection by automated methodOrdered By: Linda Rodriguez on 04-13-2023 Bacteria Auto Ql (U) 4+ None Seen [facility] Urine clarity by refractomet ry automatedOrdered By: Linda Rodriguez on 04-13-2023 Clarity Refractometry automated (U) Turbid Clear [facility] Urine culture routineOrdered By: Linda Rodriguez on 04-13-2023 Bacteria identified Cx Nom (U) Proteus vulgaris group [facility] Bacteria identified Cx Nom (U) Providencia rettgeri [facility] Urine glucose measurement by automated test strip (mass/volume)Ordered By: Linda Rodriguez on 04-13-2023 Glucose Auto test strip (U) [Mass/Vol] Normal mg/dL Normal [facility] Urine hemoglobin detection b y automated test stripOrdered By: Linda Rodriguez on 04-13-2023 Hemoglobin Auto test strip Ql (U) 3+ Negative [facility] Urine leukocyte esterase det ection by automated test stripOrdered By: Linda Rodriguez on 04-13-2023 Leukocyte esterase Auto test strip Ql (U) 4+ Negative [facility] Urobilinogen Auto test strip (U) [Mass/Vol]Ordered By: Linda Rodriguez on 04-13-2023 Urobilinogen (U) [Mass/Vol] Normal mg/dL Normal [facility] WBC Auto (Bld) [#/Vol]Ordere d By: Linda Rodriguez on 04-13-2023 WBC (Bld) [#/Vol] 6.9 10*3/uL 4.1-10.5 [facility] Yeast detection in urine sed iment by light microscopyOrdered By: Linda Rodriguez on 04-13-2023 Yeast LM Ql (Urine sed) None seen [HPF] None Se en [facility] pH Auto test strip (U)Ordere d By: Linda Rodriguez on 04-13-2023 pH (U) [pH] 5.0-9.0 [facility] Consultation Noteon 03-30-20 Consultation Note [id number] #1.00TIFF Normal [facility] NM db perf SPECT rest stron 03-24-2023 NM db perf SPECT rest str [facility] [place] [address] Nuclear Medicine Report Signed Patient: Sebastian Diego MR#: [id number] 868 : 1945 Acct:[id number] Age/Sex: 77 / M ADM Date: 03/24/23 Loc: [place] Room: Type: [facility] Attending Dr: Glo Singleton MD Copies to: Glo Singleton MD Ordering Provider: Glo Singleton MD Date of Service: 03/24/23 NM/NM db perf SPECT rest str: Z01.818,I71.40,H43.8 13,R94.31 NUCLEAR MYOCARDIAL PERFUSION DATE OF PROCEDURE: 03/24/2023 PROCEDURE: The patient received a stress dose of Lexiscan and was then injected with 19.0 millicuries of Technetium 99M Sestamibi. For rest images the patient was injected with 6.5 millicuries of Technetium 99M Sestamibi. FINDINGS: The raw cine images were reviewed. The post stress and rest perfusion images were reviewed as well as the computer quantification.? There was a small, mild fixed inferior wall defect consistent with infarct. On the gated portion of the study, there was inferior wall hypokinesis with an overall ejection fraction calculated at 39 %.? TID score was within normal limits (0.9). CONCLUSION: 1.Abnormal stress MPI: There was a small, mild fixed inferior wall defect consistent with infarct. 2. Left ventricular function was reduced at 39%. Impression dictated by: Glo Singleton M.D.03/24/2023 6:37 PM Dictation Location: [id number] Transcribed By: SERGE 03/24/231836 Dictated By: Glo Singleton MD 03/24/231832 Signed By: 03/24/231836 [facility] RAD - CT Reporton 03-13-2023 RAD - CT Report [id number] #1.00TIFF Normal [facility] RAD - Ultrasound Reporton RAD - Ultrasound Report [id number] #1.00TIFF Normal [facility] US arterial duplex LE RTon 1 05-11-2022 US arterial duplex LE RT [facility] [place] [address] Ultrasound Report Signed Patient: Sebastian Diego MR#: [id number] 868 : 1945 Acct:[id number] Age/Sex: 77 / M ADM Date: 03/11/23 Loc: [facility] Room: Type: [facility] Attending Dr: Linda Rodriguez MD Ordering Provider: Linda Rodriguez MD Date of Service: 03/11/23 US/US arterial duplex LE RT: RT FEM ARTERY ANEURYSM Copies to: Linda Rodriguez MD Right lower extremity arterial duplex evaluation INDICATIONS: Right groin aneurysm. FINDINGS: Flow was identified within the right common femoral artery aneurysm. Aneurysm sac measured 9.1 x 7.5 x 6.9 cm. 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 Impression dictated by: Linda Rodriguez MD03/11/2023 12:17 PM Dictation Location: [id number] Tech: Osiris Leal Transcribed By: SERGE 03/11/231216 Dictated By: Linda Rodriguez MD 03/11/231215 Signed By: 03/11/231216 [facility] CT angio abdomen pelvison CT angio abdomen pelvis [facility] [place] [address] [place] [address] CT Scan Report Signed Patient: Sebastian Diego MR#: [id number] 868 : 1945 Acct:[id number] Age/Sex: 77 / M ADM Date: 02/26/23 Loc: CT Room: Type: [facility] Attending Dr: Linda Rodriguez MD Copies to: Linda Rodriguez MD Ordering Provider: Linda Rodriguez MD Date of Service: 02/26/23 CT/CT angio abdomen pelvis: R FEMORAL ARTERY ANEURYSM CTA abdomen and pelvis . CLINICAL DATA: Follow-up right femoral artery aneurysm.. TECHNIQUE: CT of the abdomen and pelvis was initially performed without contrast. Intravenous contrast-enhanced CT angiography of the abdomen and pelvis was then performed. Axial, sagittal, coronal and volume-rendered three-dimensional reconstructions were created and reviewed. This CT exam was performed using one or more of the following dose reduction techniques: Automated exposure control, adjustment of the mA and/or kV according to patient size, or use of iterative reconstruction technique. Please note that the patient had a potential allergic reaction to the IV contrast with throat tightness, nausea and high blood pressure. Patient was treated with IV Benadryl monitored by the nursing staff and recovered for discharge. COMPARISON: Prostate MRI 02/10/2023. FINDINGS: Lung Bases: Calcified granuloma right middle lobe. Bibasilar atelectasis/scarring . Organs:Abdominal aorta which is moderate calcification without aneurysm, dissection or rupture. No critical stenosis or occlusion is seen involving the major visceral branch vessels of the abdominal aorta. Paucity of contrast is seen involving the iliac vasculature extending into the femoral vasculature limiting evaluation of the distal vessels. There appears to be a partially calcified right femoral artery aneurysm measuring approximately 9.1 x 7.5 x [address] evidence of rupture is seen. Cholelithiasis. Liver spleen pancreas and adrenal glands all appear unremarkable. Small cyst right kidney. 4 mm stone inferior pole right kidney. No enhancing renal mass or hydronephrosis of either kidney. GI: Stomach is grossly unremarkable. Small bowel appears nondilated. No acute colonic abnormality.[ Pelvis:[2 urinary bladder calculi are identified, largest stone measuring 6 mm. Prostatomegaly.] Peritoneum/Retroperi toneum:No free air, free fluid or lymphadenopathy.[ Abd wall/Bones:Abdominal wall demonstrates no acute findings. Osseous structures demonstrate degenerative change. A sclerotic lesion a sclerotic lesion is seen involving the T8 vertebral body. A bone island is seen involving the right iliac bone. Additional sclerotic lesions are seen involving the iliac bones. Additional area of sclerosis is seen involving the left acetabular region.[ CT/CT angio abdomen pelvis IMPRESSION: 1. Examination is suboptimal due to paucity of IV contrast within the iliac vasculature extending inferiorly involving the visualized femoral vasculature. The patient was not re-bolused due to contrast reaction. 2. A partially calcified right femoral artery aneurysm is noted measuring 9.1 x 7.5 x 6.[address] evidence of rupture is seen. 3. Urinary bladder calculi. 4. Prostatomegaly with sclerotic lesions involving the T8 vertebral body as well as the bony pelvis. Correlation with PSA level is recommended. Prostate malignancy with bony metastatic disease cannot BE excluded. 5. Cholelithiasis. 6. Right nephrolithiasis. Impression dictated by: Jeff Sykes Jr., D.ORobles02/26/2023 10:51 AM Dictation Location: [place] [address] Transcribed By: [facility] 02/26/23 1051 Dictated By: Jeff Sykes Jr, DO 02/26/23 1036 Signed By: 02/26/23 1051 [facility] Creatinine (Bld) [Mass/Vol]O rdered By: Linda Rodriguez on 02-26-2023 Creatinine [Mass/Vol] 1.1 mg/dL 0.6-1.3 [facility] Comment on above: ER/ESD physician is notified/shown all ISTAT results.Critical values may be confirmed by laboratory testing ifdeemed necessary by ER attending doctor. Consultation Noteon 02-26-20 Consultation Note [id number] #1.00TIFF Normal [facility] Physician Referralon 023 Physician Referral [id number] #1.00TIFF Normal [facility] RAD - MRI Reporton 3 RAD - MRI Report [id number] #1.00TIFF Normal [facility] Creatinine (Bld) [Mass/Vol]O rdered By: Sancho Lee on 02-10-2023 Creatinine [Mass/Vol] 1.1 mg/dL 0.6-1.3 [facility] Comment on above: ER/ESD physician is notified/shown all ISTAT results.Critical values may be confirmed by laboratory testing ifdeemed necessary by ER attending doctor. ISTAT XRay CREon 02-10-2023 Creatinine [Mass/Vol] 1.1 mg/dL Normal 0.6-1.3 [facility] Comment on above: Result Comment: ER/E [place] physician is notified/shown all ISTAT results. Critical values may be confirmed by laboratory testing if deemed necessary by ER attending doctor. Performed By: #### I SCRE #### [address] ISTAT GFR > 60.0 Normal [facility] Comment on above: Result Comment: PERF ORMED BY: [place] [address] PATHOLOGIST MECHANICAL APPLICATIONS ENGINEER NOAH PINEDA M.D. Performed By: #### I SCRE #### [facility] [address] [place] [address] MR prostate wo/w conon 02-10 MR prostate wo/w con [facility] Main [place] [address] [place] [address] MRI Report Signed Patient: Sebastian Diego MR#: [id number] 868 : 1945 Acct:[id number] Age/Sex: 77 / M ADM Date: 02/10/23 Loc: MR Room: Type: [facility] Attending Dr: Sancho Lee MD Copies to: Sancho Lee MD Ordering Provider: Sancho Lee MD Date of Service: 02/10/23 MR/MR prostate wo/w con: N40.1, R31.21, R97.20 EXAMINATION: MR prostate wo/w con HISTORY: Elevated PSA. COMPARISON: NONE TECHNIQUE: Multiparametric imaging of the prostate gland was performed with IV contrast. FINDINGS: Prostate Dimensions: 3.5 x 3.2 x 4.4 cm Prostate Volume: 25mL Peripheral Zone: The peripheral zone is diffusely T2 hypointense with associated restricted diffusion and low ADC value. This appears to extend into the left aspect of the transitional zone. Please see series 4 image 17, series 7 and 50 image 14 and series 700 image 14 for example. Central/Transitional Zone: BPH changes. Seminal Vesicles: Likely invasion into the bases of the seminal vesicles. Neurovascular bundles: Likely bilateral involvement. Lymphadenopathy: No evidence of lymphadenopathy. Bladder: No focal lesion. Bowel: The visualized bowel is without acute abnormality. Peritoneal Cavity: No free fluid. Bones: No suspicious bony lesion. There appears be a mass involving the right inguinal region possibly extending from the right femoral artery suspicious for underlying aneurysm. This is partially visualized on today's study measuring approximately 10.2 x 6.1 cm in greatest axial dimensions. MR/MR prostate wo/w con IMPRESSION: 1. The peripheral zone is diffusely T2 hypointense with associated restricted diffusion and low ADC value. This appears to extend into the left aspect of the transitional zone. Please see series 4 image 17, series 7 and 50 image 14 and series 700 image 14 for example. There appears to be seminal vesicle and neurovascular bundle involvement. PI-RADS 5. 2. Mass involving the right inguinal region partially visualized on today's study possibly extending from the right femoral artery suspicious for underlying aneurysm. This measures approximately 10.2 x 6.1 cm in greatest axial dimensions. This can be further evaluated by ultrasound. Impression dictated by: Jeff Sykes Jr., D.ORobles02/10/2023 3:47 PM Dictation Location: [place] [address] Transcribed By: [facility] 02/10/23 1547 Dictated By: Jeff Sykes Jr, DO 02/10/23 1534 Signed By: 02/10/23 154 Normal [facility] No Panel InformationOrdered By: Sancho Lee on 02-10-2023 Bedside Estimated GFR (eGFR) > 60.0 [facility] Ambulatory Visit Summaryon 0 11-21-2022 Ambulatory Visit Summary SEBASTIAN DIEGO :1945 Visit Date:12/02/2018 Ambulatory Visit Instructions Your Diagnosis BPH with urinary obstruction, BPH with urinary obstruction Microscopic hematuria Prostate cancer screening Tests Performed XR Abdomen 1 View -- Results Pending -- Please visit your patient portal for your results or contact your primary care physician. Your Care Team Primary Care Physician - LUCAS JOE, CARMELITA Arita Primary Nurse - Margo DEY, Carolina This Is Your Medications List Misc Prescription (RA VITAMIN D3 2,000 UNIT SFGL) aspirin (aspirin 81 mg Oral EC Tab) atorvastatin (Lipitor 10 mg Tab) clopidogrel (clopidogrel 75 mg Tab) duloxetine (duloxetine 30 mg oral delayed release capsule) ibuprofen (ibuprofen 200 mg oral capsule) levothyroxine (levothyroxine 50 mcg (0.05 mg) Tab) lisinopril (lisinopril 5 mg Tab) metformin (metformin 500 mg Tab) potassium chloride (Potassium Chloride (Jvj-Yszr-Pro 10) 10 mEq oral tablet, extended release) pregabalin (Lyrica 150 mg Cap) tamsulosin (Flomax 0.4 mg Cap) Procedures Performed Cystoscopy and retrograde pyelography (04/18/2021), Cystoscopy (01/11/2019), Repair of aneurysm (2009), Arthroscopy of knee (1967), Amputation of leg, Colonoscopy, Excision of cataract, tonsillectomy. Medications What How Much When Instructions New tamsulosin (Flomax 0.4 mg Cap) 1 Capsules By Mouth Every day Refills: 3 Pickup at [facility][id number] Unchanged aspirin (aspirin 81 mg Oral EC Tab) 1 Tablets By Mouth Every day Unchanged atorvastatin (Lipitor 10 mg Tab) 1 Tablets By Mouth Every day Unchanged clopidogrel (clopidogrel 75 mg Tab) 1 Tablets By Mouth Every day Unchanged duloxetine (duloxetine 30 mg oral delayed release capsule) Unchanged ibuprofen (ibuprofen 200 mg oral capsule) 1 Capsules By Mouth Every 6 hours as needed for as needed for pain Unchanged levothyroxine (levothyroxine 50 mcg (0.05 mg) Tab) 1 Tablets By Mouth Every day Unchanged lisinopril (lisinopril 5 mg Tab) 1 Tablets By Mouth Every day Unchanged metformin (metformin 500 mg Tab) Unchanged Misc Prescription (RA VITAMIN D3 2,000 UNIT SFGL) 0 Unchanged potassium chloride (Potassium Chloride (Llv-Jxoh-Eyg 10) 10 mEq oral tablet, extended release) Unchanged pregabalin (Lyrica 150 mg Cap) By Mouth 2 times a day Pharmacy Information [id number]: [address], [place] [id number] [phone] Allergies beta blockers (Weakness, Vomiting, Dizziness) Problems Ongoing - Any problem that you are currently receiving treatment for. Anticoagulated Asymptomatic microscopic hematuria BPH with urinary obstruction Elevated PSA Feeling of incomplete bladder emptying Gross hematuria HTN - Hypertension Kidney stones Microscopic hematuria PVD Stroke Ureteral stone Urge incontinence Urinary urgency Weak urinary stream Historical - Any problem that you are no longer receiving treatment for. Aneurysm DVT gout Hypercholesterolemia Infection of urinary tract Straining to void Urine frequency Normal [facility] Lab Reportson 11-21-2022 Lab Reports [id number] Normal [facility] Patient Educationon 11-22-19 Patient Education Oncology Prostate Cancer Screening Prostate cancer screening is testing that is done to check for the presence of prostate cancer in men. The prostate gland is a walnut-sized gland that is located below the bladder and in front of the rectum in males. The function of the prostate is to add fluid to semen during ejaculation. Prostate cancer is one of the most common types of cancer in men. Who should have prostate cancer screening? Screening recommendations vary based on age and other risk factors, as well as between the professional organizations who make the recommendations. In general, screening is recommended if: ? You are age 50 to 70 and have an average risk for prostate cancer. You should talk with your health care provider about your need for screening and how often screening should be done. Because most prostate cancers are slow growing and will not cause , screening in this age group is generally reserved for men who have a 10- to 15-year life expectancy. ? You are younger than age 50, and you have these risk factors: ? Having a father, brother, or uncle who has been diagnosed with prostate cancer. The risk is higher if your family member's cancer occurred at an early age or if you have multiple family members with prostate cancer at an early age. ? Being a male who is Black or is of [place] or sub-Saharan descent. In general, screening is not recommended if: ? You are younger than age 40. ? You are between the ages of 40 and 49 and you have no risk factors. ? You are 70 years of age or older. At this age, the risks that screening can cause are greater than the benefits that it may provide. If you are at high risk for prostate cancer, your health care provider may recommend that you have screenings more often or that you start screening at a younger age. How is screening for prostate cancer done? The recommended prostate cancer screening test is a blood test called the prostate-specific antigen (PSA) test. PSA is a protein that is made in the prostate. As you age, your prostate naturally produces more PSA. Abnormally high PSA levels may be caused by: ? Prostate cancer. ? An enlarged prostate that is not caused by cancer (benign prostatic hyperplasia, or BPH). This condition is very common in older men. ? A prostate gland infection (prostatitis) or urinary tract infection. ? Certain medicines such as male hormones (like testosterone) or other medicines that raise testosterone levels. A rectal exam may be done as part of prostate cancer screening to help provide information about the size of your prostate gland. When a rectal exam is performed, it should be done after the PSA level is drawn to avoid any effect on the results. Depending on the PSA results, you may need more tests, such as: ? A physical exam to check the size of your prostate gland, if not done as part of screening. ? Blood and imaging tests. ? A procedure to remove tissue samples from your prostate gland for testing (biopsy). This is the only way to know for certain if you have prostate cancer. What are the benefits of prostate cancer screening? ? Screening can help to identify cancer at an early stage, before symptoms start and when the cancer can be treated more easily. ? There is a small chance that screening may lower your risk of dying from prostate cancer. The chance is small because prostate cancer is a slow-growing cancer, and most men with prostate cancer from a different cause. What are the risks of prostate cancer screening? The main risk of prostate cancer screening is diagnosing and treating prostate cancer that would never have caused any symptoms or problems. This is called overdiagnosisand overtreatment. PSA screening cannot tell you if your PSA is high due to cancer or a different cause. A prostate biopsy is the only procedure to diagnose prostate cancer. Even the results of a biopsy may not tell you if your cancer needs to be treated. Slow-growing prostate cancer may not need any treatment other than monitoring, so diagnosing and treating it may cause unnecessary stress or other side effects. Questions to ask your health care provider ? When should I start prostate cancer screening? ? What is my risk for prostate cancer? ? How often do I need screening? ? What type of screening tests do I need? ? How do I get my test results? ? What do my results mean? ? Do I need treatment? Where to find more information ? The [place] [employer]: www.cancer.org ? [place] [employer]: www.auanet.org Contact a health care provider if: ? You have difficulty urinating. ? You have pain when you urinate or ejaculate. ? You have blood in your urine or semen. ? You have pain in your back or in the area of your prostate. Summary ? Prostate cancer is a common type of cancer in men. The prostate gland is located below the bladder and in front of the rectum. This gland adds flu (more content not included)... Normal [facility] Urology Office/Clinic Noteon 11-21-2022 Urology Office/Clinic Note Chief Complaint Repeat PSA following ABX HPI Staff Pt last seen in our office 09/22/22 for elevated PSA & BPH. Original plan at that time was for pt to get scheduled for MRI. Pt then submitted urine post encounter with PRW. Based on UA results at that time. MRI was postponed, and pt was given Doxycycline 100mg BID x3wks therapy, and was to repeat PSA following completion of full dose. C&S NEG at that time. PSA 11/17/22- 23.7 & 19.0% Voids 3-4x/day. Does have difficulty getting urine. Has to work at it . Denies pain/burning and blood in urine since last encounter. History of Present Illness Tests reviewed: reviewed UA and PSA I have reviewed the previous health record information and history for this patient from Dr. Lee. I have reviewed and verified the staff HPI to be accurate for this encounter. There have been no associated fever, chills, flank pain, or blood in the urine. Denies any urinary infections since last encounter. Review of Systems PHQ Score Initial Depression Screen Score: 0 ROS - Provider Constitutional: denies weight loss, denies hot flashes. Eyes: denies eye problems. Gastrointestinal: denies nausea, denies vomiting. Cardiovascular: denies chest pain or angina. Integumentary: no dryness Musculoskeletal: denies musculoskeletal symptoms. ENMT: denies otolaryngeal symptoms. Respiratory: no shortness of breath. Heme/Lymph: denies easy bleeding tendency, denies easy bruising tendency. Psychiatric: no confusion, no anxiety. Genitourinary: See HPI. Physical Exam Vitals & Measurements HR: 68(Peripheral) RR: 16 BP: 130/80 WT: 84.4 kg WT: 185.68 lb General Appearance: alert, no distress, well nourished, well developed male. Assessment/Plan 1. Elevated PSA (R97.20: Elevated prostate specific antigen [PSA]) PSA: 07/31/19 - 1.500 03/14/21 - 2.900 & 29% 08/25/22 - 15.04 & 21%(treated with Doxycycline 100mg BID x3wks therapy) 11/17/22 - 23.70 & 19% Reviewed pt's elevated PSA and educated him on PSA screening. No family hx of prostate ca. No prostatitis sxs. Discussed having an MRI of prostate done. Advised pt that his meds would not contribute to his elevating PSA. Will get TRUS/bx after MRI is reviewed. Will order an MRI of prostate. 2. BPH with urinary obstruction (N40.1: Benign prostatic hyperplasia with lower urinary tract symptoms) Taking Flomax 0.4 mg qd through PCP. Pt states he has frequency. Denies any burning. 3. Asymptomatic microscopic hematuria (R31.21: Asymptomatic microscopic hematuria) UA today shows trace-intact blood. Pt denies any visible blood in his urine. All questions/concerns were discussed. Pt to call the office if he encounters any issues prior. Pt acknowledges understanding. Follow-up With When Contact Information JESUS DEAL, Sancho Narayanan, URL [facility] [address], [place] [address]- Additional Instructions: sched MRI Patient Education Prostate Cancer Screening I, Zayda Oilvares, personally scribed for Dr. Lee on 11/21/2022 10:25:43. . Documentation recorded by the scribe, Zayda Olivares, accurately reflects the services(s) I performed and decisions made by me. Problem List/Past Medical History Ongoing Anticoagulated Asymptomatic microscopic hematuria BPH with urinary obstruction Elevated PSA Feeling of incomplete bladder emptying Gross hematuria HTN - Hypertension Kidney stones Microscopic hematuria PVD Stroke Ureteral stone Urge incontinence Urinary urgency Weak urinary stream Historical Aneurysm DVT gout Hypercholesterolemia Infection of urinary tract Straining to void Urine frequency Procedure/Surgical History Cystoscopy and retrograde pyelography (04/18/2021), Cystoscopy (01/11/2019), Repair of aneurysm (2009), Arthroscopy of knee (1967), Amputation of leg, Colonoscopy, Excision of cataract, tonsillectomy. Medications aspirin 81 mg Oral EC Tab, 81 mg= 1 tab(s), Oral, Daily clopidogrel 75 mg Tab, 75 mg= 1 tab(s), Oral, Daily duloxetine 30 mg oral delayed release capsule Flomax 0.4 mg Cap, 0.4 mg= 1 cap(s), Oral, Daily, 3 refills ibuprofen 200 mg oral capsule, 200 mg= 1 cap(s), Oral, q6hr, PRN levothyroxine 50 mcg (0.05 mg) Tab, 50 mcg= 1 tab(s), Oral, Daily Lipitor 10 mg Tab, 10 mg= 1 tab(s), Oral, Daily lisinopril 5 mg Tab, 5 mg= 1 tab(s), Oral, Daily Lyrica 150 mg Cap, Oral, BID metformin 500 mg Tab Potassium Chloride (Hcn-Bzws-Mbn 10) 10 mEq oral tablet, extended release RA VITAMIN D3 2,000 UNIT SFGL, 0 Allergies beta blockers (Weakness, Vomiting, Dizziness) Social History Alcohol - Denies Alcohol Use, 12/30/2018 Substance Abuse - Denies Substance Abuse, 01/28/2011 Tobacco - Denies Tobacco Use, 03/17/2019 Never (less than 100 in lifetime) Tobacco Use:. Never Smokeless Tobacco Use:. Household tobacco concerns: No., 11/21/2022 Family History COPD: Brother. Stroke: Mother (more content not included)... Normal [facility] Comment on above: Result Comment: Elec tronically Signed By: Sancho LEE MD\.br\Date and Time Signed: 11/21/22 10:29 EDT\.br\Electronically Co-Signed By: Zayda Olivares\Date and Time Co-Signed: 11/21/22 10:26 EDT Ambulatory Visit Summaryon 0 5-25-2023 Ambulatory Visit Summary SEBASTIAN DIEGO :1945 Visit Date:09/22/2022 Ambulatory Visit Instructions Your Diagnosis Elevated PSA BPH with urinary obstruction Tests Performed MRI Pelvis (Soft Tissue) w/ + w/o contrast -- Results Pending -- Please visit your patient portal for your results or contact your primary care physician. Your Care Team Attending Physician - Sancho LEE MD Primary Care Physician - CARMELITA ZAVALA CNP This Is Your Medications List tamsulosin (Flomax 0.4 mg Cap) Contact prescribing physician if questions or concerns Misc Prescription (RA VITAMIN D3 2,000 UNIT SFGL) aspirin (aspirin 81 mg Oral EC Tab) atorvastatin (Lipitor 10 mg Tab) clopidogrel (clopidogrel 75 mg Tab) duloxetine (duloxetine 30 mg oral delayed release capsule) ibuprofen (ibuprofen 200 mg oral capsule) levothyroxine (levothyroxine 50 mcg (0.05 mg) Tab) lisinopril (lisinopril 5 mg Tab) metformin (metformin 500 mg Tab) potassium chloride (Potassium Chloride (Oog-Wuab-Fbu 10) 10 mEq oral tablet, extended release) pregabalin (Lyrica 150 mg Cap) Procedures Performed Cystoscopy and retrograde pyelography (04/18/2021), Cystoscopy (01/11/2019), Repair of aneurysm (2009), Arthroscopy of knee (1967), Amputation of leg, Colonoscopy, Excision of cataract, tonsillectomy. Discharge Vitals Heart Rate (Peripheral) 68 Respiratory Rate 16 Blood Pressure 130/70 What to do next You Need to Schedule the Following Appointments Follow Up with JESUS DEAL, Sancho Narayanan, URL When: Where: [facility] [address] , [place] [address]- Medications What How Much When Instructions Unchanged tamsulosin (Flomax 0.4 mg Cap) 1 Capsules By Mouth Every day Unchanged aspirin (aspirin 81 mg Oral EC Tab) 1 Tablets By Mouth Every day Contact prescribing physician if questions or concerns Unchanged atorvastatin (Lipitor 10 mg Tab) 1 Tablets By Mouth Every day Contact prescribing physician if questions or concerns Unchanged clopidogrel (clopidogrel 75 mg Tab) 1 Tablets By Mouth Every day Contact prescribing physician if questions or concerns Unchanged duloxetine (duloxetine 30 mg oral delayed release capsule) Contact prescribing physician if questions or concerns Unchanged ibuprofen (ibuprofen 200 mg oral capsule) 1 Capsules By Mouth Every 6 hours as needed for as needed for pain Contact prescribing physician if questions or concerns Unchanged levothyroxine (levothyroxine 50 mcg (0.05 mg) Tab) 1 Tablets By Mouth Every day Contact prescribing physician if questions or concerns Unchanged lisinopril (lisinopril 5 mg Tab) 1 Tablets By Mouth Every day Contact prescribing physician if questions or concerns Unchanged metformin (metformin 500 mg Tab) Contact prescribing physician if questions or concerns Unchanged Misc Prescription (RA VITAMIN D3 2,000 UNIT SFGL) 0 Contact prescribing physician if questions or concerns Unchanged potassium chloride (Potassium Chloride (Roj-Kefn-Ngc 10) 10 mEq oral tablet, extended release) Contact prescribing physician if questions or concerns Unchanged pregabalin (Lyrica 150 mg Cap) By Mouth 2 times a day Contact prescribing physician if questions or concerns Allergies beta blockers (Weakness, Vomiting, Dizziness) Problems Ongoing - Any problem that you are currently receiving treatment for. Anticoagulated BPH with urinary obstruction Elevated PSA Feeling of incomplete bladder emptying Gross hematuria HTN - Hypertension Kidney stones Microscopic hematuria PVD Stroke Ureteral stone Urge incontinence Urinary urgency Weak urinary stream Historical - Any problem that you are no longer receiving treatment for. Aneurysm DVT gout Hypercholesterolemia Infection of urinary tract Straining to void Urine frequency Education Materials Prostate Cancer Screening Prostate cancer screening is testing that is done to check for the presence of prostate cancer in men. The prostate gland is a walnut-sized gland that is located below the bladder and in front of the rectum in males. The function of the prostate is to add fluid to semen during ejaculation. Prostate cancer is one of the most common types of cancer in men. Who should have prostate cancer screening? Screening recommendations vary based on age and other risk factors, as well as between the professional organizations who make the recommendations. In general, screening is recommended if: ? You are age 50 to 70 and have an average risk for prostate cancer. You should talk with your health care provider about your need for screening and how often screening should be done. Because most prostate cancers are slow growing and will not cause , screening in this age group is generally reserved for men who have a 10- to 15-year life expectancy. ? You are younger than age 50, and you have these risk factors: ? Having a father, brother, or uncle who has been diagnosed w (more content not included)... Normal [facility] C Urineon 09-24-2022 Bacteria identified Cx Nom (U) Microbiology PROCEDURE: Urine Culture [R1] SOURCE: U Random BODY SITE: COLLECTED DATE/TIME: 09/22/2022 13:12 EDT RECEIVED DATE/TIME: 09/22/2022 17:48 EDT START DATE/TIME: 09/22/2022 17:48 EDT FREE TEXT SOURCE: JESUS DEAL, Sancho LEE MD, Sancho Narayanan FINAL REPORTS Final Report [] Verified Date/Time: 09/24/2022 10:41 EDT 2,000 cfu/ml Mixed skin contaminants Performing Locations R1: This test was performed at: [facility], [address] [place] [address], [facility] , , [facility] Comment on above: Performed By: #### [id number] ####[facility] [id number] [place] [address] Patient Educationon 09-23-19 23 Patient Education Oncology Prostate Cancer Screening Prostate cancer screening is testing that is done to check for the presence of prostate cancer in men. The prostate gland is a walnut-sized gland that is located below the bladder and in front of the rectum in males. The function of the prostate is to add fluid to semen during ejaculation. Prostate cancer is one of the most common types of cancer in men. Who should have prostate cancer screening? Screening recommendations vary based on age and other risk factors, as well as between the professional organizations who make the recommendations. In general, screening is recommended if: ? You are age 50 to 70 and have an average risk for prostate cancer. You should talk with your health care provider about your need for screening and how often screening should be done. Because most prostate cancers are slow growing and will not cause , screening in this age group is generally reserved for men who have a 10- to 15-year life expectancy. ? You are younger than age 50, and you have these risk factors: ? Having a father, brother, or uncle who has been diagnosed with prostate cancer. The risk is higher if your family member's cancer occurred at an early age or if you have multiple family members with prostate cancer at an early age. ? Being a male who is Black or is of [place] or sub-Saharan descent. In general, screening is not recommended if: ? You are younger than age 40. ? You are between the ages of 40 and 49 and you have no risk factors. ? You are 70 years of age or older. At this age, the risks that screening can cause are greater than the benefits that it may provide. If you are at high risk for prostate cancer, your health care provider may recommend that you have screenings more often or that you start screening at a younger age. How is screening for prostate cancer done? The recommended prostate cancer screening test is a blood test called the prostate-specific antigen (PSA) test. PSA is a protein that is made in the prostate. As you age, your prostate naturally produces more PSA. Abnormally high PSA levels may be caused by: ? Prostate cancer. ? An enlarged prostate that is not caused by cancer (benign prostatic hyperplasia, or BPH). This condition is very common in older men. ? A prostate gland infection (prostatitis) or urinary tract infection. ? Certain medicines such as male hormones (like testosterone) or other medicines that raise testosterone levels. A rectal exam may be done as part of prostate cancer screening to help provide information about the size of your prostate gland. When a rectal exam is performed, it should be done after the PSA level is drawn to avoid any effect on the results. Depending on the PSA results, you may need more tests, such as: ? A physical exam to check the size of your prostate gland, if not done as part of screening. ? Blood and imaging tests. ? A procedure to remove tissue samples from your prostate gland for testing (biopsy). This is the only way to know for certain if you have prostate cancer. What are the benefits of prostate cancer screening? ? Screening can help to identify cancer at an early stage, before symptoms start and when the cancer can be treated more easily. ? There is a small chance that screening may lower your risk of dying from prostate cancer. The chance is small because prostate cancer is a slow-growing cancer, and most men with prostate cancer from a different cause. What are the risks of prostate cancer screening? The main risk of prostate cancer screening is diagnosing and treating prostate cancer that would never have caused any symptoms or problems. This is called overdiagnosisand overtreatment. PSA screening cannot tell you if your PSA is high due to cancer or a different cause. A prostate biopsy is the only procedure to diagnose prostate cancer. Even the results of a biopsy may not tell you if your cancer needs to be treated. Slow-growing prostate cancer may not need any treatment other than monitoring, so diagnosing and treating it may cause unnecessary stress or other side effects. Questions to ask your health care provider ? When should I start prostate cancer screening? ? What is my risk for prostate cancer? ? How often do I need screening? ? What type of screening tests do I need? ? How do I get my test results? ? What do my results mean? ? Do I need treatment? Where to find more information ? The [place] [employer]: www.cancer.org ? [place] [employer]: www.auanet.org Contact a health care provider if: ? You have difficulty urinating. ? You have pain when you urinate or ejaculate. ? You have blood in your urine or semen. ? You have pain in your back or in the area of your prostate. Summary ? Prostate cancer is a common type of cancer in men. The prostate gland is located below the bladder and in front of the rectum. This gland adds flu (more content not included)... Normal [facility] PSA, FREE AND TOTAL RATIOon 08-27-2022 % Free PSA 20.8 % Normal [facility] Comment on above: Result Comment: The table below lists the probability of prostate cancer for men with non-suspicious SHAHZAD results and total PSA between 4 and 10 ng/mL, by patient age (Dangelo et al, BRYAN 1998, [id number]). % Free PSA 50-64 yr 65-75 yr 0.00-10.00% 56% 55% 10.01-15.00% 24% 35% 15.01-20.00% 17% 23% 20.01-25.00% 10% 20% >25.00% 5% 9% Please note: Dangelo et al did not make specific recommendations regarding the use of percent free PSA for any other population of men. Performed By: #### P SAFREE #### [facility] [address] [place] [address] Dr. Daniel Hahn Prostate specific Ag [Mass/Vol] 13.5 ng/mL Critically high 0.0-4.0 [facility] Comment on above: Result Comment: Roch e ECLIA methodology. . According to the [place] [employer], Serum PSA should decrease and remain at undetectable levels after radical prostatectomy. The AUA defines biochemical recurrence as an initial PSA value 0.2 ng/mL or greater followed by a subsequent confirmatory PSA value 0.2 ng/mL or greater. Values obtained with different assay methods or kits cannot be used interchangeably. Results cannot be interpreted as absolute evidence of the presence or absence of malignant disease. Performed By: #### P SAFREE #### [facility] [address] [place] [address] Dr. Daniel Hahn PSA, Free 2.81 ng/mL Normal N/A [facility] Comment on above: Result Comment: [place] JACOBO methodology. Performed By: #### P SAFREE #### [facility] [address] [place] [address] Dr. Daniel Hahn CBC AUTO DIFFon 08-25-2022 BASO # 0.1 103/ul Normal 0.0-0.1 [facility] Comment on above: Performed By: #### C BC #### [facility] [address] [place] [address] Dr. Daniel Hahn Basophils/100 WBC (Bld) 0.6 % Normal 0.2-2.0 [facility] Comment on above: Performed By: #### C BC #### [facility] [address] [place] [address] Dr. Daniel Hahn EO # 0.4 103/ul Normal 0.0-0.7 [facility] Comment on above: Performed By: #### C BC #### [facility] [address] [place] [address] Dr. Daniel Hahn Eosinophils/100 WBC (Bld) 5.6 % Normal 0.9-7.0 [facility] Comment on above: Performed By: #### C BC #### [facility] [address] [place] [address] Dr. Daniel Hahn Erythrocyte distribution width (RBC) [Ratio] 13.7 % Normal 11.0-15.0 [facility] Comment on above: Performed By: #### C BC #### [facility] [address] [place] [address] Dr. Daniel Hahn Hematocrit (Bld) [Volume fraction] 47.0 % Normal 42.0-54.0 [facility] Comment on above: Performed By: #### C BC #### [facility] [address] [place] [address] Dr. Daniel Hahn Hemoglobin (Bld) [Mass/Vol] 15.6 g/dL Normal 14.0-18.0 [facility] Comment on above: Performed By: #### C BC #### [facility] [address] [place] [address] Dr. Daniel Hahn IG # 0.02 10e3/ul Normal 0.00-0.03 [facility] Comment on above: Performed By: #### C BC #### [facility] [address] [place] [address] Dr. Daniel Hahn IG % 0.3 % Normal 0.0-0.5 [facility] Comment on above: Performed By: #### C BC #### [facility] [address] [place] [address] Dr. Daniel Hahn LYMPH # 1.8 103/ul Normal 1.2-3.8 [facility] Comment on above: Performed By: #### C BC #### [facility] [address] [place] [address] Dr. Daniel Hahn Lymphocytes/100 WBC (Bld) 22.8 % Normal 20.5-60.0 [facility] Comment on above: Performed By: #### C BC #### [facility] [address] [place] [address] Dr. Daniel Hahn MANUAL DIFF REQ NO Normal [facility] Comment on above: Performed By: #### C BC #### [facility] [address] [place] [address] Dr. Daniel Hahn MCH (RBC) [Entitic mass] 31.5 pg Normal 25.9-34.0 [facility] Comment on above: Performed By: #### C BC #### [facility] [address] [place] [address] Dr. Daniel Hahn MCHC (RBC) [Mass/Vol] 33.2 g/dL Normal 29.9-35.2 [facility] Comment on above: Performed By: #### C BC #### [facility] [address] [place] [address] Dr. Daniel Hahn MCV (RBC) [Entitic vol] 94.8 fL Critically high 80.0-94 .0 [facility] Comment on above: Performed By: #### C BC #### [facility] [address] [place] [address] Dr. Daniel Hahn MONO # 0.6 103/ul Normal 0.3-0.8 [facility] Comment on above: Performed By: #### C BC #### [facility] [address] [place] [address] Dr. Daniel Hahn Monocytes/100 WBC (Bld) 7.9 % Normal 1.7-12.0 [facility] Comment on above: Performed By: #### C BC #### [facility] [address] [place] [address] Dr. Daniel Hahn NEUT # 4.9 103/ul Normal 1.4-6.5 [facility] Comment on above: Performed By: #### C BC #### [facility] [address] [place] [address] Dr. Daniel Hahn Neutrophils/100 WBC (Bld) 62.8 % Normal 43.0-75.0 [facility] Comment on above: Performed By: #### C BC #### [facility] [address] [place] [address] Dr. Daniel Hahn Platelet mean volume (Bld) [Entitic vol] 9.9 fL Normal 9.5-13.5 [facility] Comment on above: Performed By: #### C BC #### [facility] [address] [place] [address] Dr. Daniel Hahn PLT 199 103/ul Normal 150-450 [facility] Comment on above: Performed By: #### C BC #### [facility] [address] [place] [address] Dr. Daniel Hahn RBC 4.96 106/ul Normal 4.70-6.10 [facility] Comment on above: Performed By: #### C BC #### [facility] [address] [place] [address] Dr. Daniel Hahn WBC 7.7 103/ul Normal 4.0-11.0 [facility] Comment on above: Performed By: #### C BC #### [facility] [address] [place] [address] Dr. Daniel Hahn FREE T4on 08-25-2022 Free T4 [Mass/Vol] 0.94 ng/dL Normal 0.76-1.46 [facility] Comment on above: Performed By: #### P SAFREE #### [facility] [address] [place] [address] Dr. Daniel Hahn GLYCOHEMOGLOBIN A1Con 2022 ADA RECOMMENDATION SEE BELOW Normal [facility] Comment on above: Result Comment: ADA RECOMMENDED LIMIT 4.0 - 6.0 ADA THERAPEUTIC TARGET < 7.0 ACTION SUGGESTED > 7.0 Performed By: #### A 1C #### [facility] [address] [place] [address] Dr. Daniel Hahn Glucose [Mass/Vol] 126 mg/dL Normal [facility] Comment on above: Performed By: #### A 1C #### [facility] [address] [place] [address] Dr. Daniel Hahn HbA1c (Bld) [Mass fraction] 6.0 % Normal 4.5-6.2 [facility] Comment on above: Performed By: #### A 1C #### [facility] [address] [place] [address] Dr. Daniel Hahn LIPID PROFILEon 08-25-2022 CHOL-HDL RATIO NORM SEE BELOW Normal [facility] Comment on above: Result Comment: 3.3 - 4.4 LOW RISK 4.4 - 7.1 AVERAGE RISK 7.1 - 11.0 MODERATE RISK >11.0 HIGH RISK Performed By: #### B MP, LIVER #### [facility] [address] [place] [address] Dr. Daniel Hahn Cholesterol [Mass/Vol] 180 mg/dL Normal <=200 [facility] Comment on above: Performed By: #### B MP, LIVER #### [facility] [address] [address] [address] Daniel Hahn Cholesterol in HDL [Mass/Vol] 36 mg/dL Critically low 40-60 [facility] Comment on above: Performed By: #### B MP, LIVER #### [facility] [address] [address] [address] Daniel Hahn Cholesterol in LDL [Mass/Vol] 85.6 mg/dL Normal [facility] Comment on above: Performed By: #### B MP, LIVER #### [facility] [address] [address] [address] Daniel Hahn Cholesterol.total/Choles terol in HDL [Mass ratio] 5.0 {ratio} Normal [facility] Comment on above: Performed By: #### B MP, LIVER #### [facility] [address] [place] [address] Dr. Daniel Hahn HDL NORMAL > or = 60 mg/dl - LOW CARDIOVASCULAR RISK <40 mg/dl - HIGH CARDIOVASCULAR RISK Normal [facility] Comment on above: Performed By: #### B MP, LIVER #### [facility] [address] [place] [address] Dr. Daniel Hahn LDL CALC NORMAL SEE BELOW Normal [facility] Comment on above: Result Comment: <100 mg/dl OPTIMAL 100 - 129 mg/dl NEAR OR ABOVE OPTIMAL 130 - 159 mg/dl BORDERLINE HIGH 160 - 189 mg/dl HIGH >190 mg/dl VERY HIGH Performed By: #### B MP, LIVER #### [facility] [address] [place] [address] Dr. Daniel Hahn Triglyceride [Mass/Vol] 292 mg/dL Critically high <=150 [facility] Comment on above: Performed By: #### B MP, LIVER #### [facility] [address] [place] [address] Dr. Daniel Hahn VLDL CALC 58.4 mg/dL Normal [facility] Comment on above: Performed By: #### B MP, LIVER #### [facility] [address] [place] [address] Dr. Daniel Hahn PROF 14(COMP METB)on 023 Albumin [Mass/Vol] 3.3 g/dL Critically low 3.4-5.0 [facility] Comment on above: Performed By: #### B MP, LIVER #### [facility] [address] [place] [address] Dr. Daniel Hahn Albumin/Globulin [Mass ratio] 1.0 {ratio} Normal [facility] Comment on above: Performed By: #### B MP, LIVER #### [facility] [address] [place] [address] Dr. Daniel Hahn ALP [Catalytic activity/Vol] 108 U/L Normal 46-116 [facility] Comment on above: Performed By: #### B MP, LIVER #### [facility] [address] [place] [address] Dr. Daniel Hahn ALT [Catalytic activity/Vol] 10 U/L Critically low 16-63 [facility] Comment on above: Performed By: #### B MP, LIVER #### [facility] [address] [place] [address] Dr. Daniel Hahn Anion gap [Moles/Vol] 9.1 mmol/L Normal [facility] Comment on above: Performed By: #### B MP, LIVER #### [facility] [address] [place] [address] Dr. Daniel Hahn AST [Catalytic activity/Vol] 12 U/L Critically low 15-37 [facility] Comment on above: Performed By: #### B MP, LIVER #### [facility] [address] [place] [address] Dr. Daniel Hahn Bilirubin [Mass/Vol] 0.6 mg/dL Normal 0.2-1.0 [facility] Comment on above: Performed By: #### B MP, LIVER #### [facility] [address] [place] [address] Dr. Daniel Hahn Calcium [Mass/Vol] 9.1 mg/dL Normal 8.5-10.1 [facility] Comment on above: Performed By: #### B MP, LIVER #### [facility] [address] [address] [address] Daniel Hahn Chloride [Moles/Vol] 105 mmol/L Normal 98-107 [facility] Comment on above: Performed By: #### B MP, LIVER #### [facility] [address] [address] [address] Daniel Hahn CO2 [Moles/Vol] 28.7 mmol/L Normal 21.0-32.0 [facility] Comment on above: Performed By: #### B MP, LIVER #### [facility] [address] [address] [address] Daniel Hahn Creatinine [Mass/Vol] 1.20 mg/dL Normal 0.70-1.30 [facility] Comment on above: Performed By: #### B MP, LIVER #### [facility] [address] [place] [address] Dr. Daniel Hahn EGFR-AF MOZAMBICAN >60 Normal >=60 [facility] Comment on above: Performed By: #### B MP, LIVER #### [facility] [address] [address] [address] Daniel Hahn EGFR-NON AF MOZAMBICAN 59 mL/min/1.73m2 Critically low >=60 [facility] Comment on above: Performed By: #### B MP, LIVER #### [facility] [address] [place] [address] Dr. Daniel Hahn Globulin (S) [Mass/Vol] 3.4 g/dL Normal [facility] Comment on above: Performed By: #### B MP, LIVER #### [facility] [address] [address] [address] Daniel Hahn Glucose [Mass/Vol] 115 mg/dL Critically high 74-106 [facility] Comment on above: Performed By: #### B MP, LIVER #### [facility] [address] [place] [address] Dr. Daniel Hahn Potassium [Moles/Vol] 3.8 mmol/L Normal 3.5-5.1 [facility] Comment on above: Performed By: #### B MP, LIVER #### [facility] [address] [place] [address] Dr. Daniel Hahn Protein [Mass/Vol] 6.7 g/dL Normal 6.4-8.2 [facility] Comment on above: Performed By: #### B MP, LIVER #### [facility] [address] [place] [address] Dr. Daniel Hahn Sodium [Moles/Vol] 139 mmol/L Normal 136-145 [facility] Comment on above: Performed By: #### B MP, LIVER #### [facility] [address] [place] [address] Dr. Daniel Hahn Urea nitrogen [Mass/Vol] 17.0 mg/dL Normal 7.0-18.0 [facility] Comment on above: Performed By: #### B MP, LIVER #### [facility] [address] [place] [address] Dr. Daniel Hahn Urea nitrogen/Creatinine [Mass ratio] 14.2 mg/mg Normal [facility] Comment on above: Performed By: #### B MP, LIVER #### [facility] [address] [place] [address] Dr. Daniel Hahn TSHon 08-25-2022 TSH 0.357 uIU/mL Critically low 0.358-3.740 [facility] Comment on above: Performed By: #### B MP, LIVER #### [facility] [address] [place] [address] Dr. Daniel Hahn VITAMIN D 25 OHon 08-25-2022 VIT D 25-OH 58.3 ng/mL Normal [facility] Comment on above: Performed By: #### P SAFREE #### [facility] [address] [place] [address] Dr. Daniel Hahn VIT D RANGES SEE BELOW Normal [facility] Comment on above: Result Comment: <20 ng/mL Vit D deficient 20 - <30 ng/mL Vit D insufficient 30 - 100 ng/mL Vit D sufficient >100 ng/mL Potential Toxicity Performed By: #### P SAFREE #### [facility] [address] [place] [address] Dr. Daniel Hahn CARDIAC EWELINA 3-6on 2 CK [Catalytic activity/Vol] 212 U/L Normal 39-308 [facility] Comment on above: Performed By: #### B IGNACIO, TSH #### [facility] [address] [address] [address] Daniel Hahn CK.MB [Mass/Vol] 3.01 ng/mL Normal <=3.60 [facility] Comment on above: Performed By: #### B IGNACIO, TSH #### [facility] [address] [place] [address] Dr. Daniel Hahn HSTROP 19.0 pg/mL Normal 4.0-76.1 [facility] Comment on above: Result Comment: CUT- OFF POINTS HAVE BEEN ESTABLISHED BASED ON THE FOURTH UNIVERSAL DEFINITIONS OF MYOCARDIAL INFARCTION. THE UPPER REFERENCE LIMIT (URL) OF TROPONIN, DEFINED THE 99TH PERCENTILE OF cTnI DISTRIBUTION IN A REFERENCE POPULATION, HAS BEEN CONFIRMED THE DECISION THRESHOLD FOR PA DIAGNOSIS. Performed By: #### B IGNACIO, TSH #### [facility] [address] [place] [address] Dr. Daniel Hahn CARDIAC EWELINA ADMITon 022 CK [Catalytic activity/Vol] 128 U/L Normal 39-308 [facility] Comment on above: Performed By: #### B IGNACIO, TSH #### [facility] [address] [place] [address] Dr. Daniel Hahn CK.MB [Mass/Vol] 2.01 ng/mL Normal <=3.60 [facility] Comment on above: Performed By: #### B IGNACIO, TSH #### [facility] [address] [place] [address] Dr. Daniel Hahn HSTROP 36.0 pg/mL Normal 4.0-76.1 [facility] Comment on above: Result Comment: CUT- OFF POINTS HAVE BEEN ESTABLISHED BASED ON THE FOURTH UNIVERSAL DEFINITIONS OF MYOCARDIAL INFARCTION. THE UPPER REFERENCE LIMIT (URL) OF TROPONIN, DEFINED THE 99TH PERCENTILE OF cTnI DISTRIBUTION IN A REFERENCE POPULATION, HAS BEEN CONFIRMED THE DECISION THRESHOLD FOR PA DIAGNOSIS. Performed By: #### B IGNACIO, TSH #### [facility] [address] [place] [address] Dr. Daniel Hahn DB 167 ng/mL Critically high 16-96 [facility] Comment on above: Performed By: #### B IGNACIO, TSH #### [facility] [address] [place] [address] Dr. Daniel Hahn CK [Catalytic activity/Vol] 159 U/L Normal 39-308 [facility] Comment on above: Performed By: #### B IGNACIO, TSH #### [facility] [address] [place] [address] Dr. Daniel Hahn CK.MB [Mass/Vol] 2.99 ng/mL Normal <=3.60 [facility] Comment on above: Performed By: #### B IGNACIO, TSH #### [facility] [address] [place] [address] Dr. Daniel Hahn HSTROP 15.8 pg/mL Normal 4.0-76.1 [facility] Comment on above: Result Comment: CUT- OFF POINTS HAVE BEEN ESTABLISHED BASED ON THE FOURTH UNIVERSAL DEFINITIONS OF MYOCARDIAL INFARCTION. THE UPPER REFERENCE LIMIT (URL) OF TROPONIN, DEFINED THE 99TH PERCENTILE OF cTnI DISTRIBUTION IN A REFERENCE POPULATION, HAS BEEN CONFIRMED THE DECISION THRESHOLD FOR PA DIAGNOSIS. Performed By: #### B IGNACIO, TSH #### [facility] [address] [place] [address] Dr. Daniel Hahn DB 307 ng/mL Critically high 16-96 [facility] Comment on above: Performed By: #### B IGNACIO, TSH #### [facility] [address] [place] [address] Dr. Daniel Hahn CBC AUTO DIFFon 01-14-2022 BASO # 0.1 103/ul Normal 0.0-0.1 [facility] Comment on above: Performed By: #### B IGNACIO, TSH #### [facility] [address] [place] [address] Dr. Daniel Hahn Basophils/100 WBC (Bld) 0.6 % Normal 0.2-2.0 [facility] Comment on above: Performed By: #### B IGNACIO, TSH #### [facility] [address] [place] [address] Dr. Daniel Hahn EO # 0.1 103/ul Normal 0.0-0.7 [facility] Comment on above: Performed By: #### B IGNACIO, TSH #### [facility] [address] [place] [address] Dr. Daniel Hahn Eosinophils/100 WBC (Bld) 1.1 % Normal 0.9-7.0 [facility] Comment on above: Performed By: #### B IGNACIO, TSH #### [facility] [address] [place] [address] Dr. Daniel Hahn Erythrocyte distribution width (RBC) [Ratio] 13.6 % Normal 11.0-15.0 [facility] Comment on above: Performed By: #### B IGNACIO, TSH #### [facility] [address] [place] [address] Dr. Daniel Hahn Hematocrit (Bld) [Volume fraction] 43.4 % Normal 42.0-54.0 [facility] Comment on above: Performed By: #### B IGNACIO, TSH #### [facility] [address] [place] [address] Dr. Daniel Hahn Hemoglobin (Bld) [Mass/Vol] 14.1 g/dL Normal 14.0-18.0 [facility] Comment on above: Performed By: #### B IGNACIO, TSH #### [facility] [address] [place] [address] Dr. Daniel Hahn IG # 0.02 10e3/ul Normal 0.00-0.03 [facility] Comment on above: Performed By: #### B IGNACIO, TSH #### [facility] [address] [place] [address] Dr. Daniel Hahn IG % 0.2 % Normal 0.0-0.5 [facility] Comment on above: Performed By: #### B IGNACIO, TSH #### [facility] [address] [place] [address] Dr. Daniel Hahn LYMPH # 2.3 103/ul Normal 1.2-3.8 [facility] Comment on above: Performed By: #### B IGNACIO, TSH #### [facility] [address] [place] [address] Dr. Daniel Hahn Lymphocytes/100 WBC (Bld) 25.5 % Normal 20.5-60.0 [facility] Comment on above: Performed By: #### B MP, TSH #### [facility] [address] [place] [address] Dr. Daniel Hahn MANUAL DIFF REQ NO Normal [facility] Comment on above: Performed By: #### B MP, TSH #### [facility] [address] [place] [address] Dr. Daniel Hahn MCH (RBC) [Entitic mass] 32.0 pg Normal 25.9-34.0 [facility] Comment on above: Performed By: #### B IGNACIO, TSH #### [facility] [address] [place] [address] Dr. Daneil Hahn MCHC (RBC) [Mass/Vol] 32.5 g/dL Normal 29.9-35.2 [facility] Comment on above: Performed By: #### B IGNACIO, TSH #### [facility] [address] [place] [address] Dr. Daniel Hahn MCV (RBC) [Entitic vol] 98.4 fL Critically high 80.0-94 .0 [facility] Comment on above: Performed By: #### B IGNACIO, TSH #### [facility] [address] [place] [address] Dr. Daniel Hahn MONO # 0.8 103/ul Normal 0.3-0.8 [facility] Comment on above: Performed By: #### B IGNACIO, TSH #### [facility] [address] [place] [address] Dr. Daniel Hahn Monocytes/100 WBC (Bld) 8.8 % Normal 1.7-12.0 [facility] Comment on above: Performed By: #### B MP, TSH #### [facility] [address] [place] [address] Dr. Daniel Hahn NEUT # 5.6 103/ul Normal 1.4-6.5 [facility] Comment on above: Performed By: #### B MP, TSH #### [facility] [address] [address] [address] Daniel Hahn Neutrophils/100 WBC (Bld) 63.8 % Normal 43.0-75.0 [facility] Comment on above: Performed By: #### B MP, TSH #### [facility] [address] [address] [address] Daniel Hahn Platelet mean volume (Bld) [Entitic vol] 10.0 fL Normal 9.5-13.5 [facility] Comment on above: Performed By: #### B MP, TSH #### [facility] [address] [address] [address] Daniel Hahn PLT 212 103/ul Normal 150-450 [facility] Comment on above: Performed By: #### B MP, TSH #### [facility] [address] [address] [address] Daniel Hahn RBC 4.41 106/ul Critically low 4.70-6.10 [facility] Comment on above: Performed By: #### B MP, TSH #### [facility] [address] [address] [address] Daniel Hahn WBC 8.8 103/ul Normal 4.0-11.0 [facility] Comment on above: Performed By: #### B MP, TSH #### [facility] [address] [address] [address] Daniel Hahn BASO # 0.1 103/ul Normal 0.0-0.1 [facility] Comment on above: Performed By: #### B MP, TSH #### [facility] [address] [address] [address] Daniel Hahn Basophils/100 WBC (Bld) 0.6 % Normal 0.2-2.0 [facility] Comment on above: Performed By: #### B MP, TSH #### [facility] [address] [address] [address] Daniel Hahn EO # 0.1 103/ul Normal 0.0-0.7 [facility] Comment on above: Performed By: #### B MP, TSH #### [facility] [address] [place] [address] Dr. Daniel Hahn Eosinophils/100 WBC (Bld) 0.6 % Critically low 0.9-7.0 [facility] Comment on above: Performed By: #### B MP, TSH #### [facility] [address] [place] [address] Dr. Daniel Hahn Erythrocyte distribution width (RBC) [Ratio] 13.3 % Normal 11.0-15.0 [facility] Comment on above: Performed By: #### B MP, TSH #### [facility] [address] [place] [address] Dr. Daniel Hahn Hematocrit (Bld) [Volume fraction] 46.4 % Normal 42.0-54.0 [facility] Comment on above: Performed By: #### B MP, TSH #### [facility] [address] [place] [address] Dr. Daniel Hahn Hemoglobin (Bld) [Mass/Vol] 15.0 g/dL Normal 14.0-18.0 [facility] Comment on above: Performed By: #### B MP, TSH #### [facility] [address] [place] [address] Dr. Daniel Hahn IG # 0.03 10e3/ul Normal 0.00-0.03 [facility] Comment on above: Performed By: #### B MP, TSH #### [facility] [address] [place] [address] Dr. Daniel Hahn IG % 0.4 % Normal 0.0-0.5 [facility] Comment on above: Performed By: #### B MP, TSH #### [facility] [address] [place] [address] Dr. Daniel Hahn LYMPH # 1.3 103/ul Normal 1.2-3.8 [facility] Comment on above: Performed By: #### B MP, TSH #### [facility] [address] [place] [address] Dr. Daniel Hahn Lymphocytes/100 WBC (Bld) 15.6 % Critically low 20.5-60.0 [facility] Comment on above: Performed By: #### B MP, TSH #### [facility] [address] [address] [address] Daniel Hahn MANUAL DIFF REQ NO Normal [facility] Comment on above: Performed By: #### B MP, TSH #### [facility] [facility] [address] [address] [address] Daniel Hahn MCH (RBC) [Entitic mass] 31.7 pg Normal 25.9-34.0 [facility] Comment on above: Performed By: #### B MP, TSH #### [facility] [address] [place] [address] Dr. Daniel Hahn MCHC (RBC) [Mass/Vol] 32.3 g/dL Normal 29.9-35.2 [facility] Comment on above: Performed By: #### B MP, TSH #### [facility] [address] [place] [address] Dr. Daniel Hahn MCV (RBC) [Entitic vol] 98.1 fL Critically high 80.0-94 .0 [facility] Comment on above: Performed By: #### B MP, TSH #### [facility] [address] [place] [address] Dr. Daniel Hahn MONO # 0.5 103/ul Normal 0.3-0.8 [facility] Comment on above: Performed By: #### B MP, TSH #### [facility] [address] [place] [address] Dr. Daniel Hahn Monocytes/100 WBC (Bld) 6.1 % Normal 1.7-12.0 [facility] Comment on above: Performed By: #### B MP, TSH #### [facility] [address] [place] [address] Dr. Daniel Hahn NEUT # 6.4 103/ul Normal 1.4-6.5 [facility] Comment on above: Performed By: #### B MP, TSH #### [facility] [address] [place] [address] Dr. Daniel Hahn Neutrophils/100 WBC (Bld) 76.7 % Critically high 43.0-75.0 [facility] Comment on above: Performed By: #### B MP, TSH #### [facility] [address] [address] [address] Daniel Hahn Platelet mean volume (Bld) [Entitic vol] 9.9 fL Normal 9.5-13.5 [facility] Comment on above: Performed By: #### B MP, TSH #### [facility] [address] [address] [address] Daniel Hahn PLT 247 103/ul Normal 150-450 [facility] Comment on above: Performed By: #### B MP, TSH #### [facility] [address] [address] [address] Daniel Hahn RBC 4.73 106/ul Normal 4.70-6.10 [facility] Comment on above: Performed By: #### B MP, TSH #### [facility] [address] [address] [address] Daniel Hahn WBC 8.4 103/ul Normal 4.0-11.0 [facility] Comment on above: Performed By: #### B MP, TSH #### [facility] [address] [address] [address] Daniel Hahn CTA CHEST WO W CONon 022 CTA CHEST WO W CON EXAMINATION: CTA CHEST WO W CON HISTORY: Syncope COMPARISON: CT Abdomen and Pelvis 01/11/2019. TECHNIQUE: CT angiography of the chest following the administration of intravenous contrast. Coronal and sagittal MIP (maximum intensity projection) images were performed. 3-D image processing was performed on a separate workstation. Dose reduction techniques were achieved by using automated exposure control and/or adjustment of mA and/or kV according to patient size and/or use of iterative reconstruction technique. FINDINGS: TUBES AND IMPLANTS: None. CHEST: CHEST WALL AND LOWER NECK: Unremarkable. MEDIASTINUM AND MORGAN: Unremarkable. BONES: No suspicious lesions. Multilevel degenerative changes spine. AORTA: No evidence of dissection. Ectatic ascending aorta measuring 4.1 centimeters. PULMONARY ARTERIES: Pulmonary trunk appears normal caliber. Nondiagnostic for pulmonary embolism CORONARY ARTERIES: Moderate coronary artery calcifications. HEART: Mild cardiomegaly LUNG AND AIRWAYS: Right lower lobe calcified granuloma. Dependent atelectasis. PLEURA: Unremarkable. UPPER ABDOMEN: Unremarkable IMPRESSION: 1. The examination is mildly limited by contrast bolus quality. No evidence of dissection. Ectatic ascending aorta measuring up to 4.1 centimeters. 2. Mild cardiomegaly. 3. Moderate coronary artery calcification. Electronically authenticated by: CARMEN MURDOCK Date: 2022-01-14 02:34 Normal [facility] Covid-19 PCR (CVDTBH)on 01-02 SARS-CoV-2 (COVID-19) RNA LEIGHTON+probe Ql (Unsp spec) Not detected Normal NOT DETECTED [facility] Comment on above: Result Comment: When diagnostic testing is negative, the possibility of a false negative should be considered in the context of a patient's recent exposures and the presence of clinical signs and symptoms consistent with SARS-CoV-2. This test is not yet approved or cleared by the [place] FDA. When there are no FDA-approved or cleared tests available, and other criteria are met, FDA can make tests available under an emergency access mechanism called an Emergency Use Authorization (EUA). The EUA for this test is supported by the [place] of Health and Human Service's declaration that circumstances exist to justify the emergency use of in vitro diagnostics for the detection and/or diagnosis of the virus that causes COVID-19. This EUA will remain in effect for the duration of the COVID-19 declaration justifying emergency of IVDs, unless it is terminated or revoked by the FDA (after which the test may no longer be used). Performed By: #### B MP, TSH #### [facility] [address] [address] [address] Daniel Hahn D-DIMERon 01-14-2022 D-DIMER 2.00 mg/L FEU Critically high <=0.59 [facility] Comment on above: Performed By: #### B MP, TSH #### [facility] [address] [place], [place] [address] Dr. Daniel Hahn D-DIMER COMMENTS SEE BELOW Normal [facility] Comment on above: Result Comment: Incr eases in D-Dimer concentration observed with thromboembolic events can be variable due to localization, size, and age of the thrombus. Therefore, a thromboembolic event cannot be diagnosed with certainty on the basis of the reference range. D-Dimers may also be elevated for a variety of disorders including: advanced age, , coronary disease, cancer, liver disease, infection, inflammation, hematoma, DIC, trauma, post-surgery, diabetes, thrombolytic or anticoagulant therapy, stress, and generalized hospitalization. Performed By: #### B MP, TSH #### [facility] [address] [address] [address] Daniel Hahn ECHO LIMITED STUDYon 022 ECHO LIMITED STUDY Patient: SEBASTIAN DIEGO Exam Date: 01/14/2022 : 1945 Gender:M Ordering : JULEE DUONG Admission #: [id number] Family : DR LEE PARSONS . Order #: [id number] CLICK HERE TO VIEW EXAM ECHOCARDIOGRAM REPORT PROCEDURE: CARDIO PULMONARY ECHO LIMITED STUDY INDICATIONS: Hypotension, Syncope COMPARISON: None. DESCRIPTION: Limited ECHOCARDIOGRAM Real-time transthoracic echocardiography with 2D and M-mode performed. QUALITY: Technical quality was adequate. LEFT VENTRICLE: Normal chamber size. Thickened septal wall, measuring 1.6 cm. Global left ventricular systolic function is normal. LV EF: Calculated left ventricular ejection fraction is 55%. DIASTOLIC: ATRIAL SEPTUM: LEFT ATRIUM: RIGHT ATRIUM: RIGHT VENTRICLE: Normal right ventricular systolic function. TRICUSPID VALVE: Normal mobility and thickness. MITRAL VALVE: Normal mobility and thickness. AORTIC VALVE: Normal trileaflet appearance. No visible sclerosis. Normal leaflet mobility. AORTIC ROOT: Mildly dilated. Measures 4.0 cm. PULMONIC VALVE: Not well visualized. PERICARDIUM: No evidence of pericardial effusion. IVC: Not well visualized. PLEURA: CONCLUSION: 1. The left ventricular systolic function appears normal. LVEF is 55%. 2. Normal right ventricular systolic function. 3. Mildly dilated aortic root. 4. No pericardial effusion. 5. Limited study performed with no Doppler interrogation as requested. Adult Echocardiography Procedure Report Left Ventricle LVEDD (3.7 - 5.6 cm): 5.46 cm LVESD (2.2 - 4.0 cm): 3.99 cm LVIVS thickness (0.6 - 1.2 cm): 1.58 cm LVPW thickness (0.5 - 1.0 cm): 1.13 cm Left Atrium Mitral Valve Right Ventricle Aorta AO Root Diam: 3.96 cm Aortic Valve Tricuspid Valve Pulmonic Valve Right Atrium Dictated by: Titi Nguyen M.D. on 01/14/2022 at 18:19 Approved by: Titi Nguyen M.D. on 01/14/2022 at 18:23 Normal [facility] ER URINE PROFILEon 2 Bilirubin Ql (U) Negative Normal NEGATIVE [facility] Comment on above: Performed By: #### E RUR #### [facility] [address] [place] [address] Dr. Daniel Hahn Clarity (U) CLEAR Normal CLEAR [facility] Comment on above: Performed By: #### E RUR #### [facility] [address] [place] [address] Dr. Daniel Hahn Color (U) YELLOW Normal YELLOW [facility] Comment on above: Performed By: #### E RUR #### [facility] [address] [place] [address] Dr. Daniel WADE A micrscopic examination will be performed if indicated. Normal [facility] Comment on above: Performed By: #### E RUR #### [facility] [address] [place] [address] Dr. Daniel Hahn Glucose Ql (U) Negative Normal NEGATIVE [facility] Comment on above: Performed By: #### E RUR #### [facility] [address] [place] [address] Dr. Daniel Hahn Hemoglobin Ql (U) Negative Normal NEGATIVE [facility] Comment on above: Performed By: #### E RUR #### [facility] [address] [place] [address] Dr. Daniel Hahn Ketones Ql (U) Negative Normal NEGATIVE [facility] Comment on above: Performed By: #### E RUR #### [facility] [address] [place] [address] Dr. Daniel Hahn LEUKOCYTES Negative Normal NEGATIVE [facility] Comment on above: Performed By: #### E RUR #### [facility] [address] [place] [address] Dr. Daniel Hahn Nitrite Ql (U) Negative Normal NEGATIVE [facility] Comment on above: Performed By: #### E RUR #### [facility] [address] [place] [address] Dr. Daniel Hahn pH (U) 5.5 [pH] Normal 5-9 [facility] Comment on above: Performed By: #### E RUR #### [facility] [address] [place] [address] Dr. Daniel Hahn SPEC GRAVITY 1.025 Normal 1.005-<=1.02 5 [facility] Comment on above: Performed By: #### E RUR #### [facility] [address] [place] [address] Dr. Daniel Hahn UA PROTEIN TRACE Normal NEGATIVE/ TRACE [facility] Comment on above: Performed By: #### E RUR #### [facility] [address] [place] [address] Dr. Daniel Hahn UR MICRO IND NOT INDICATED Normal [facility] Comment on above: Performed By: #### E RUR #### [facility] [address] [place] [address] Dr. Daniel Hahn Urobilinogen Qn (U) 4 {Julien'U}/dL Abnormal 0.2 - 1.0 [facility] Comment on above: Performed By: #### E RUR #### [facility] [address] [place] [address] Dr. Daniel Hahn LACTATE/LACTIC ACIDon 2021 Lactate [Moles/Vol] 2.6 mmol/L Critically high 0.4-1.9 [facility] Comment on above: Performed By: #### B MP, LIVER #### [facility] [address] [place] [address] Dr. Daniel Hahn Lactate [Moles/Vol] 2.6 mmol/L Critically high 0.4-1.9 [facility] Comment on above: Performed By: #### B MP, TSH #### [facility] [address] [place] [address] Dr. Daniel Hahn Lactate [Moles/Vol] 3.7 mmol/L Critically high 0.4-1.9 [facility] Comment on above: Performed By: #### P SAFREE #### [facility] [address] [address] [address] Daniel Hahn LIVER PROFILEon 01-14-2022 Albumin [Mass/Vol] 3.4 g/dL Normal 3.4-5.0 [facility] Comment on above: Performed By: #### B MP, TSH #### [facility] [address] [place] [address] Dr. Daniel Hahn Albumin/Globulin [Mass ratio] 1.1 {ratio} Normal [facility] Comment on above: Performed By: #### B MP, TSH #### [facility] [address] [place] [address] Dr. Daniel Hahn ALP [Catalytic activity/Vol] 100 U/L Normal 46-116 [facility] Comment on above: Performed By: #### B MP, TSH #### [facility] [address] [place] [address] Dr. Daniel Hahn ALT [Catalytic activity/Vol] 21 U/L Normal 16-63 [facility] Comment on above: Performed By: #### B MP, TSH #### [facility] [address] [place] [address] Dr. Daniel Hahn AST [Catalytic activity/Vol] 25 U/L Normal 15-37 [facility] Comment on above: Performed By: #### B MP, TSH #### [facility] [address] [place] [address] Dr. Daniel Hahn BILI, CONJUGATED 0.0 mg/dL Normal 0.0-0.2 [facility] Comment on above: Performed By: #### B MP, TSH #### [facility] [address] [place] [address] Dr. Daniel Hahn Bilirubin [Mass/Vol] 0.7 mg/dL Normal 0.2-1.0 [facility] Comment on above: Performed By: #### B MP, TSH #### [facility] [address] [place] [address] Dr. Daniel Hahn Globulin (S) [Mass/Vol] 3.2 g/dL Normal T [facility] Comment on above: Performed By: #### B MP, TSH #### [facility] [address] [address] [address] Daniel Hahn Protein [Mass/Vol] 6.6 g/dL Normal 6.4-8.2 [facility] Comment on above: Performed By: #### B MP, TSH #### [facility] [address] [address] [address] Daniel Hahn PROF 14(COMP METB)on 022 Albumin [Mass/Vol] 3.1 g/dL Critically low 3.4-5.0 [facility] [place] [facility] Comment on above: Performed By: #### C MP #### [facility] [address] [place] [address] Dr. Daniel Hahn Albumin/Globulin [Mass ratio] 1.1 {ratio} Normal [facility] Comment on above: Performed By: #### C MP #### [facility] [address] [place] [address] Dr. Daniel Hahn ALP [Catalytic activity/Vol] 91 U/L Normal 46-116 [facility] Comment on above: Performed By: #### C MP #### [facility] [address] [place] [address] Dr. Daniel Hahn ALT [Catalytic activity/Vol] 17 U/L Normal 16-63 [facility] Comment on above: Performed By: #### C MP #### [facility] [address] [place] [address] Dr. Daniel Hahn Anion gap [Moles/Vol] 13.4 mmol/L Normal [facility] [place] [facility] Comment on above: Performed By: #### C MP #### [facility] [address] [address] [address] Daniel Hahn AST [Catalytic activity/Vol] 18 U/L Normal 15-37 [facility] Comment on above: Performed By: #### C MP #### [facility] [address] [place] [address] Dr. Daniel Hahn Bilirubin [Mass/Vol] 0.4 mg/dL Normal 0.2-1.0 [facility] Comment on above: Performed By: #### C MP #### [facility] [address] [address] [address] Daniel Hahn Calcium [Mass/Vol] 8.8 mg/dL Normal 8.5-10.1 [facility] Comment on above: Performed By: #### C MP #### [facility] [address] [address] [address] Daniel Hahn Chloride [Moles/Vol] 109 mmol/L Critically high 98-107 [facility] Comment on above: Performed By: #### C MP #### [facility] [address] [address] [address] Daniel Hahn CO2 [Moles/Vol] 24.2 mmol/L Normal 21.0-32.0 [facility] Comment on above: Performed By: #### C MP #### [facility] [address] [address] [address] Daniel Hahn Creatinine [Mass/Vol] 1.20 mg/dL Normal 0.70-1.30 [facility] Comment on above: Performed By: #### C MP #### [facility] [address] [address] [address] Daniel Hahn EGFR-AF MOZAMBICAN >60 Normal >=60 [facility] Comment on above: Performed By: #### C MP #### [facility] [address] [address] [address] Daniel Hahn EGFR-NON AF MOZAMBICAN 59 mL/min/1.73m2 Critically low >=60 [facility] Comment on above: Performed By: #### C MP #### [facility] [address] [address] [address] Daniel Hahn Globulin (S) [Mass/Vol] 2.9 g/dL Normal [facility] Comment on above: Performed By: #### C MP #### [facility] [address] [address] [address] Daniel Hahn Glucose [Mass/Vol] 151 mg/dL Critically high 74-106 [facility] Comment on above: Performed By: #### C MP #### [facility] [address] [address] [address] Daniel Hahn Potassium [Moles/Vol] 3.6 mmol/L Normal 3.5-5.1 [facility] Comment on above: Performed By: #### C MP #### [facility] [address] [address] [address] Daniel Hahn Protein [Mass/Vol] 6.0 g/dL Critically low 6.4-8.2 [facility] [place] [facility] Comment on above: Performed By: #### C MP #### [facility] [address] [address] [address] Daniel Hahn Sodium [Moles/Vol] 143 mmol/L Normal 136-145 [facility] Comment on above: Performed By: #### C MP #### [facility] [address] [place] [address] Dr. Daniel Hahn Urea nitrogen [Mass/Vol] 9.0 mg/dL Normal 7.0-18.0 [facility] Comment on above: Performed By: #### C MP #### [facility] [address] [address] [address] Daniel Hahn Urea nitrogen/Creatinine [Mass ratio] 7.5 mg/mg Normal [facility] Comment on above: Performed By: #### C MP #### [facility] [address] [address] [address] Daniel Hahn PROF CHEM 8 (BAS METB)on Anion gap [Moles/Vol] 12.0 mmol/L Normal [facility] Comment on above: Performed By: #### B MP, TSH #### [facility] [address] [address] [address] Daniel Hahn Calcium [Mass/Vol] 8.9 mg/dL Normal 8.5-10.1 [facility] Comment on above: Performed By: #### B MP, TSH #### [facility] [address] [address] [address] Daniel Hahn Chloride [Moles/Vol] 106 mmol/L Normal 98-107 [facility] Comment on above: Performed By: #### B MP, TSH #### [facility] [address] [address] [address] Daniel Hahn CO2 [Moles/Vol] 25.3 mmol/L Normal 21.0-32.0 [facility] Comment on above: Performed By: #### B MP, TSH #### [facility] [address] [address] [address] Daniel Hahn Creatinine [Mass/Vol] 1.50 mg/dL Critically high 0.70-1.30 [facility] Comment on above: Performed By: #### B MP, TSH #### [facility] [address] [address] [address] Daniel Hahn EGFR-AF MOZAMBICAN 55 mL/min/1.73m2 Critically low >=60 [facility] Comment on above: Performed By: #### B MP, TSH #### [facility] [address] [address] [address] Daniel Hahn EGFR-NON AF MOZAMBICAN 46 mL/min/1.73m2 Critically low >=60 [facility] Comment on above: Performed By: #### B MP, TSH #### [facility] [address] [address] [address] Daniel Hahn Glucose [Mass/Vol] 213 mg/dL Critically high 74-106 [facility] Comment on above: Performed By: #### B MP, TSH #### [facility] [address] [address] [address] Daniel Hahn Potassium [Moles/Vol] 3.3 mmol/L Critically low 3.5-5.1 [facility] Comment on above: Performed By: #### B MP, TSH #### [facility] [address] [address] [address] Daniel Hahn Sodium [Moles/Vol] 140 mmol/L Normal 136-145 [facility] Comment on above: Performed By: #### B MP, TSH #### [facility] [address] [address] [address] Daniel Hahn Urea nitrogen [Mass/Vol] 11.0 mg/dL Normal 7.0-18.0 [facility] Comment on above: Performed By: #### B MP, TSH #### [facility] [address] [address] [address] Daniel Hahn Urea nitrogen/Creatinine [Mass ratio] 7.3 mg/mg Normal [facility] Comment on above: Performed By: #### B MP, TSH #### [facility] [id number] Daniel Hahn TSHon 01-14-2022 TSH 0.213 uIU/mL Critically low 0.358-3.740 [facility] Comment on above: Performed By: #### B MP, TSH #### [facility] [address] [place], [place] [id number] Dr. Daniel Hahn XR CHEST 1 Von 01-14-2022 XR CHEST 1 V EXAM: XR CHEST 1 V HISTORY: Syncope COMPARISON: None. TECHNIQUE: Single frontal view chest x-ray FINDINGS: No lobar consolidation, large pleural effusions, pneumothorax, or acute bony abnormality. Cardiac size is borderline prominent. IMPRESSION: Borderline prominent heart size. No radiographic lung consolidation or large pleural effusions. Electronically authenticated by: ALKA MORENO Date: 2022-01-14 00:55 Normal [facility] PTH INTACTon 12-25-2021 PTH, Intact 26 pg/mL Normal 15-65 [facility] Comment on above: Performed By: #### B MP, TSH #### [facility] [address] [address] [address] Daniel Hahn VIT D 25-OH LABCORPon 2021 Vitamin D, 25-Hydroxy 52.5 ng/mL Normal 30.0-100.0 [facility] Comment on above: Result Comment: Megan min D deficiency has been defined by the [place] of Medicine and an Endocrine Society practice guideline as a level of serum 25-OH vitamin D less than 20 ng/mL (1,2). The Endocrine Society went on to further define vitamin D insufficiency as a level between 21 and 29 ng/mL (2). 1. IOM ([place] of Medicine). 2010. Dietary reference intakes for calcium and D. [place]: The National Academies Press. 2. Jesica MF, Chely LUNA, Mandy HORNE, et al. Evaluation, treatment, and prevention of vitamin D deficiency: an Endocrine Society clinical practice guideline. JCEM. 2010; 96(7):1911-30. Performed By: #### B MP, TSH #### [facility] [address] [place] [address] Dr. Daniel Hahn FREE T3on 12-24-2021 FREE T3 2.03 pg/mlL Critically low 2.18-3.98 [facility] Comment on above: Performed By: #### B MP, TSH #### [facility] [address] [place] [address] Dr. Daniel Hahn FREE T4on 12-24-2021 Free T4 [Mass/Vol] 0.95 ng/dL Normal 0.76-1.46 [facility] Comment on above: Performed By: #### F T4 #### [facility] [address] [place] [address] Dr. Daniel Hahn GLYCOHEMOGLOBIN A1Con 2021 ADA RECOMMENDATION SEE BELOW Normal [facility] Comment on above: Result Comment: ADA RECOMMENDED LIMIT 4.0 - 6.0 ADA THERAPEUTIC TARGET < 7.0 ACTION SUGGESTED > 7.0 Performed By: #### B MP, LIVER #### [facility] [address] [place] [address] Dr. Daniel Hahn Glucose [Mass/Vol] 126 mg/dL Normal [facility] Comment on above: Performed By: #### B MP, LIVER #### [facility] [address] [place] [address] Dr. Daniel Hahn HbA1c (Bld) [Mass fraction] 6.0 % Normal 4.5-6.2 [facility] Comment on above: Performed By: #### B MP, LIVER #### [facility] [address] [place] [address] Dr. Daniel Hahn PROF 14(COMP METB)on 022 Albumin [Mass/Vol] 3.3 g/dL Critically low 3.4-5.0 [facility] Comment on above: Performed By: #### B MP, TSH #### [facility] [address] [address] [address] Daniel Hahn Albumin/Globulin [Mass ratio] 1.0 {ratio} Normal [facility] Comment on above: Performed By: #### B MP, TSH #### [facility] [address] [address] [address] Daniel Hahn ALP [Catalytic activity/Vol] 96 U/L Normal 46-116 [facility] [facility] Comment on above: Performed By: #### B MP, TSH #### [facility] [address] [address] [address] Daniel Hahn ALT [Catalytic activity/Vol] 15 U/L Critically low 16-63 [facility] Comment on above: Performed By: #### B MP, TSH #### [facility] [address] [place] [address] Dr. Daniel Hahn Anion gap [Moles/Vol] 7.4 mmol/L Normal [facility] Comment on above: Performed By: #### B MP, TSH #### [facility] [address] [place] [address] Dr. Daniel Hahn AST [Catalytic activity/Vol] 16 U/L Normal 15-37 [facility] Comment on above: Performed By: #### B MP, TSH #### [facility] [address] [place] [address] Dr. Daniel Hahn Bilirubin [Mass/Vol] 0.6 mg/dL Normal 0.2-1.0 [facility] Comment on above: Performed By: #### B MP, TSH #### [facility] [address] [place] [address] Dr. Daniel Hahn Calcium [Mass/Vol] 9.0 mg/dL Normal 8.5-10.1 [facility] Comment on above: Performed By: #### B MP, TSH #### [facility] [address] [place] [address] Dr. Daniel Hahn Chloride [Moles/Vol] 107 mmol/L Normal 98-107 [facility] Comment on above: Performed By: #### B MP, TSH #### [facility] [address] [address] [address] Daniel Hahn CO2 [Moles/Vol] 32.8 mmol/L Critically high 21.0-32.0 [facility] Comment on above: Performed By: #### B MP, TSH #### [facility] [address] [address] [address] Daniel Hahn Creatinine [Mass/Vol] 1.06 mg/dL Normal 0.70-1.30 [facility] Comment on above: Performed By: #### B MP, TSH #### [facility] [address] [address] [address] Daniel Hahn EGFR-AF MOZAMBICAN >60 Normal >=60 [facility] Comment on above: Performed By: #### B IGNACIO, TSH #### [facility] [address] [place] [address] Dr. Daniel Hahn EGFR-NON AF MOZAMBICAN >60 Normal >=60 [facility] Comment on above: Performed By: #### B IGNACIO, TSH #### [facility] [address] [address] [address] Daniel Hahn Globulin (S) [Mass/Vol] 3.2 g/dL Normal [facility] Comment on above: Performed By: #### B IGNACIO, TSH #### [facility] [address] [place] [address] Dr. Daniel Hahn Glucose [Mass/Vol] 148 mg/dL Critically high 74-106 [facility] Comment on above: Performed By: #### B IGNACIO, TSH #### [facility] [address] [address] [address] Daniel Hahn Potassium [Moles/Vol] 4.2 mmol/L Normal 3.5-5.1 [facility] Comment on above: Performed By: #### B MP, TSH #### [facility] [address] [address] [address] Daniel Hahn Protein [Mass/Vol] 6.5 g/dL Normal 6.4-8.2 [facility] Comment on above: Performed By: #### B IGNACIO, TSH #### [facility] [address] [address] [address] Daniel Hahn Sodium [Moles/Vol] 143 mmol/L Normal 136-145 [facility] Comment on above: Performed By: #### B MP, TSH #### [facility] [address] [address] [address] Daniel Hahn Urea nitrogen [Mass/Vol] 15.0 mg/dL Normal 7.0-18.0 [facility] Comment on above: Performed By: #### B MP, TSH #### [facility] [address] [address] [address] Daniel Hahn Urea nitrogen/Creatinine [Mass ratio] 14.2 mg/mg Normal [facility] Comment on above: Performed By: #### B MP, TSH #### [facility] [address] [place] [address] Dr. Daniel Hahn TSHon 12-24-2021 TSH 0.409 uIU/mL Normal 0.358-3.740 [facility] Comment on above: Performed By: #### P SAFREE #### [facility] [address] [place] [address] Dr. Daniel Hahn XR KUB 1 VIEWon 12-24-2021 XR KUB 1 VIEW EXAMINATION: XR KUB 1 VIEW HISTORY: Pain in thoracic spine COMPARISON: 10/22/2021 FINDINGS: KIDNEY/URETER - RIGHT: No visible renal or ureteral calcifications. KIDNEY/URETER - LEFT: No visible renal or ureteral calcifications. PELVIS: No visible ureteral calcifications. Any visible calcifications favor phleboliths. BOWEL: No abnormal dilation or deviation. BONES: Dextrocurvature. Mild to moderate degenerative changes. OTHER: Vascular calcification IMPRESSION: Nonobstructive bowel gas pattern Electronically authenticated by: CAROLINE BLOUNT Date: 2021-12-24 17:55 Normal [facility] XR TSPINE 3 VIEWSon 12-25-19 22 XR TSPINE 3 VIEWS EXAMINATION: XR TSPINE 3 VIEWS, XR LSPINE 2_3 VIEWS HISTORY: Pain in thoracic spine COMPARISON: No relevant comparison available. FINDINGS: BONES: 10 degrees of the thoracic levocurvature measured from T1 to T5. 7 degrees of thoracolumbar dextrocurvature measured from T12 to L4. Moderate diffuse degenerative spondylosis and facet osteoarthropathy DISC SPACES: Moderate to severe multilevel disc space narrowing most significant L4-5 and L5-S1 PARASPINOUS: Negative. No paraspinous abnormality is seen. OTHER: Extensive vascular calcifications IMPRESSION: S-shaped curvature of the thoracolumbar spine Moderate diffuse degenerative change Electronically authenticated by: CAROLINE BLOUNT Date: 2021-12-24 18:05 Normal [facility] XR KUB 1 VIEWon 10-23-2021 XR KUB 1 VIEW EXAMINATION: XR KUB 1 VIEW HISTORY: Lower urinary tract symptoms due to benign prostatic hypertrophy ; follow-up kidney stones COMPARISON: CT abdomen pelvis 01/11/2019 FINDINGS: KIDNEY/URETER - RIGHT: No visible renal or ureteral calcifications. KIDNEY/URETER - LEFT: No visible renal or ureteral calcifications. PELVIS: Multiple pelvic calcifications, grossly stable compared to prior study favoring phleboliths and atherosclerotic plaque. BOWEL: No abnormal dilation or deviation. BONES: No acute abnormality. OTHER: Negative. No abnormal gaseous collections. IMPRESSION: 1. No appreciable urinary tract calculi. 2. Normal bowel gas pattern. Electronically authenticated by: DEANDRE MIN Date: 2021-10-23 07:19 Normal [facility] UA RANDOM W/MICROSCOPICon BACTERIA TRACE Abnormal NONE SEEN The [facility] Comment on above: Performed By: #### B MP, LIVER #### [facility] [address] [place] [address] Dr. Daniel Hahn Bilirubin Ql (U) Negative Normal NEGATIVE [facility] Comment on above: Performed By: #### B MP, LIVER #### [facility] [address] [address] [address] Daniel Hahn CAST NONE SEEN Normal NONE SEEN The [facility] Comment on above: Performed By: #### B MP, LIVER #### [facility] [address] [address] [address] Daniel Hahn Clarity (U) CLEAR Normal CLEAR [facility] Comment on above: Performed By: #### B MP, LIVER #### [facility] [address] [place] [address] Dr. Daniel Hahn Color (U) YELLOW Normal YELLOW The [facility] Comment on above: Performed By: #### B MP, LIVER #### [facility] [address] [place] [address] Dr. Daniel Hahn Crystals LM Nom (Urine sed) SEEN Abnormal NONE SEEN The [facility] Comment on above: Performed By: #### B MP, LIVER #### [facility] [address] [place] [address] Dr. Daniel Hahn Epithelial cells LM Ql (Urine sed) RARE Normal NONE SEEN /RARE The [facility] Comment on above: Performed By: #### B MP, LIVER #### [facility] [address] [place] [address] Dr. Daniel Hahn Glucose Ql (U) 100 mg/dl Abnormal NEGATIVE The [facility] Comment on above: Performed By: #### B MP, LIVER #### [facility] [address] [place] [address] Dr. Daniel Hahn Hemoglobin Ql (U) Negative Normal NEGATIVE [facility] Comment on above: Performed By: #### B MP, LIVER #### [facility] [address] [place] [address] Dr. Daniel Hahn Ketones Ql (U) Negative Normal NEGATIVE The [facility] Comment on above: Performed By: #### B MP, LIVER #### [facility] [address] [place] [address] Dr. Daniel Hahn LEUKOCYTES Negative Normal NEGATIVE The [facility] Comment on above: Performed By: #### B MP, LIVER #### [facility] [address] [place] [address] Dr. Daniel Hahn MUCOUS MODERATE Abnormal NONE SEEN The [facility] Comment on above: Performed By: #### B MP, LIVER #### [facility] [address] [place] [address] Dr. Daniel Hahn Nitrite Ql (U) Negative Normal NEGATIVE The [facility] Comment on above: Performed By: #### B MP, LIVER #### [facility] [address] [place] [address] Dr. Daniel Hahn pH (U) 6.0 [pH] Normal 5-9 [facility] Comment on above: Performed By: #### B MP, LIVER #### [facility] [address] [place] [address] Dr. Daniel Hahn RBC 10-20 Abnormal 0-2 [facility] Comment on above: Performed By: #### B MP, LIVER #### [facility] [address] [place] [address] Dr. Daniel Hahn SPEC GRAVITY 1.020 Normal 1.005-<=1.02 5 [facility] Comment on above: Performed By: #### B MP, LIVER #### [facility] [address] [place] [address] Dr. Daniel Hahn UA PROTEIN Negative Normal NEGATIVE/ TRACE [facility] Comment on above: Performed By: #### B MP, LIVER #### [facility] [address] [place] [address] Dr. Daniel Hahn Urobilinogen Qn (U) 8 {Julien'U}/dL Abnormal 0.2 - 1.0 [facility] Comment on above: Performed By: #### B MP, LIVER #### [facility] [address] [place] [address] Dr. Daniel Hahn WBC NONE SEEN Normal NONE SEEN The [facility] Comment on above: Performed By: #### B MP, LIVER #### [facility] [address] [place] [address] Dr. Daniel Hahn LIVER PROFILEon 09-26-2021 Albumin [Mass/Vol] 3.3 g/dL Critically low 3.4-5.0 [facility] Comment on above: Performed By: #### B MP, LIVER #### [facility] [address] [place] [address] Dr. Daniel Hahn Albumin/Globulin [Mass ratio] 1.0 {ratio} Normal [facility] Comment on above: Performed By: #### B MP, LIVER #### [facility] [address] [place] [address] Dr. Daniel Hahn ALP [Catalytic activity/Vol] 102 U/L Normal 46-116 [facility] Comment on above: Performed By: #### B MP, LIVER #### [facility] [address] [place] [address] Dr. Daniel Hahn ALT [Catalytic activity/Vol] 19 U/L Normal 16-63 [facility] Comment on above: Performed By: #### B MP, LIVER #### [facility] [address] [place] [address] Dr. Daniel Hahn AST [Catalytic activity/Vol] 15 U/L Normal 15-37 [facility] Comment on above: Performed By: #### B MP, LIVER #### [facility] [address] [place] [address] Dr. Daniel Hahn BILI, CONJUGATED 0.3 mg/dL Critically high 0.0-0.2 [facility] Comment on above: Performed By: #### B MP, LIVER #### [facility] [address] [place] [address] Dr. Daniel Hahn Bilirubin [Mass/Vol] 0.9 mg/dL Normal 0.2-1.0 [facility] Comment on above: Performed By: #### B MP, LIVER #### [facility] [address] [place] [address] Dr. Daniel Hahn Globulin (S) [Mass/Vol] 3.2 g/dL Normal T [facility] Comment on above: Performed By: #### B MP, LIVER #### [facility] [address] [place] [address] Dr. Daniel Hahn Protein [Mass/Vol] 6.5 g/dL Normal 6.4-8.2 [facility] Comment on above: Performed By: #### B MP, LIVER #### [facility] [address] [place] [address] Dr. Daniel Hahn PROF CHEM 8 (BAS METB)on Anion gap [Moles/Vol] 10.2 mmol/L Normal [facility] Comment on above: Performed By: #### B MP, LIVER #### [facility] [address] [place] [address] Dr. Daniel Hahn Calcium [Mass/Vol] 9.0 mg/dL Normal 8.5-10.1 [facility] Comment on above: Performed By: #### B MP, LIVER #### [facility] [address] [address] [address] Daniel Hahn Chloride [Moles/Vol] 104 mmol/L Normal 98-107 [facility] Comment on above: Performed By: #### B MP, LIVER #### [facility] [address] [place] [address] Dr. Daniel Hahn CO2 [Moles/Vol] 28.8 mmol/L Normal 21.0-32.0 [facility] Comment on above: Performed By: #### B MP, LIVER #### [facility] [address] [place] [address] Dr. Daniel Hahn Creatinine [Mass/Vol] 1.11 mg/dL Normal 0.70-1.30 [facility] Comment on above: Performed By: #### B MP, LIVER #### [facility] [address] [place] [address] Dr. Daniel Hahn EGFR-AF MOZAMBICAN >60 Normal >=60 [facility] Comment on above: Performed By: #### B MP, LIVER #### [facility] [address] [place] [address] Dr. Daniel Hahn EGFR-NON AF MOZAMBICAN >60 Normal >=60 [facility] Comment on above: Performed By: #### B MP, LIVER #### [facility] [address] [place] [address] Dr. Daniel Hahn Glucose [Mass/Vol] 179 mg/dL Critically high 74-106 [facility] Comment on above: Performed By: #### B MP, LIVER #### [facility] [address] [place] [address] Dr. Daniel Hahn Potassium [Moles/Vol] 4.0 mmol/L Normal 3.5-5.1 [facility] Comment on above: Performed By: #### B MP, LIVER #### [facility] [address] [place] [address] Dr. Daniel Hahn Sodium [Moles/Vol] 139 mmol/L Normal 136-145 [facility] Comment on above: Performed By: #### B MP, LIVER #### [facility] [address] [place] [address] Dr. Daniel Hahn Urea nitrogen [Mass/Vol] 15.0 mg/dL Normal 7.0-18.0 [facility] Comment on above: Performed By: #### B MP, LIVER #### [facility] [address] [place] [address] Dr. Daniel Hahn Urea nitrogen/Creatinine [Mass ratio] 13.5 mg/mg Normal [facility] Comment on above: Performed By: #### B MP, LIVER #### [facility] [address] [place] [address] Dr. Daniel Hahn CBC AUTO DIFFon 09-10-2021 BASO # 0.1 103/ul Normal 0.0-0.1 [facility] Comment on above: Performed By: #### P SAFREE #### [facility] [address] [place] [address] Dr. Daniel Hahn Basophils/100 WBC (Bld) 1.1 % Normal 0.2-2.0 [facility] Comment on above: Performed By: #### P SAFREE #### [facility] [address] [place] [address] Dr. Daniel Hahn EO # 0.3 103/ul Normal 0.0-0.7 [facility] Comment on above: Performed By: #### P SAFREE #### [facility] [address] [place] [address] Dr. Daniel Hahn Eosinophils/100 WBC (Bld) 4.1 % Normal 0.9-7.0 [facility] Comment on above: Performed By: #### P SAFREE #### [facility] [address] [place] [address] Dr. Daniel Hahn Erythrocyte distribution width (RBC) [Ratio] 13.6 % Normal 11.0-15.0 [facility] Comment on above: Performed By: #### P SAFREE #### [facility] [address] [place] [address] Dr. Daniel Hahn Hematocrit (Bld) [Volume fraction] 49.2 % Normal 42.0-54.0 [facility] Comment on above: Performed By: #### P SAFREE #### [facility] [address] [address] [address] Daniel Hahn Hemoglobin (Bld) [Mass/Vol] 16.1 g/dL Normal 14.0-18.0 [facility] Comment on above: Performed By: #### P SAFREE #### [facility] [address] [address] [address] Daniel Hahn IG # 0.02 10e3/ul Normal 0.00-0.03 [facility] Comment on above: Performed By: #### P SAFREE #### [facility] [address] [address] [address] Daniel Hahn IG % 0.2 % Normal 0.0-0.5 [facility] Comment on above: Performed By: #### P SAFREE #### [facility] [address] [place] [address] Dr. Daniel Hahn LYMPH # 2.3 103/ul Normal 1.2-3.8 [facility] Comment on above: Performed By: #### P SAFREE #### [facility] [address] [place] [address] Dr. Daniel Hahn Lymphocytes/100 WBC (Bld) 27.6 % Normal 20.5-60.0 [facility] Comment on above: Performed By: #### P SAFREE #### [facility] [address] [place] [address] Dr. Daniel Hahn MANUAL DIFF REQ NO Normal [facility] Comment on above: Performed By: #### P SAFREE #### [facility] [address] [place] [address] Dr. Daniel Hahn MCH (RBC) [Entitic mass] 31.4 pg Normal 25.9-34.0 [facility] Comment on above: Performed By: #### P SAFREE #### [facility] [address] [address] [address] Daniel Hahn MCHC (RBC) [Mass/Vol] 32.7 g/dL Normal 29.9-35.2 [facility] Comment on above: Performed By: #### P SAFREE #### [facility] [address] [address] [address] Daniel Hahn MCV (RBC) [Entitic vol] 96.1 fL Critically high 80.0-94 .0 [facility] Comment on above: Performed By: #### P SAFREE #### [facility] [address] [place] [address] Dr. Daniel Hahn MONO # 0.6 103/ul Normal 0.3-0.8 [facility] Comment on above: Performed By: #### P SAFREE #### [facility] [address] [place] [address] Dr. Daniel Hahn Monocytes/100 WBC (Bld) 7.8 % Normal 1.7-12.0 [facility] Comment on above: Performed By: #### P SAFREE #### [facility] [address] [place] [address] Dr. Daniel Hahn NEUT # 4.9 103/ul Normal 1.4-6.5 [facility] Comment on above: Performed By: #### P SAFREE #### [facility] [address] [place] [address] Dr. Daniel Hahn Neutrophils/100 WBC (Bld) 59.2 % Normal 43.0-75.0 [facility] Comment on above: Performed By: #### P SAFREE #### [facility] [address] [place] [address] Dr. Daniel Hahn Platelet mean volume (Bld) [Entitic vol] 10.4 fL Normal 9.5-13.5 [facility] Comment on above: Performed By: #### P SAFREE #### [facility] [address] [place] [address] Dr. Daniel Hahn PLT 284 103/ul Normal 150-450 [facility] Comment on above: Performed By: #### P SAFREE #### [facility] [address] [place] [address] Dr. Daniel Hahn RBC 5.12 106/ul Normal 4.70-6.10 [facility] Comment on above: Performed By: #### P SAFREE #### [facility] [address] [address] [address] Daniel Hahn WBC 8.2 103/ul Normal 4.0-11.0 [facility] Comment on above: Performed By: #### P SAFREE #### [facility] [address] [place] [address] Dr. Daniel Hahn FREE T4on 09-10-2021 Free T4 [Mass/Vol] 1.28 ng/dL Normal 0.76-1.46 [facility] Comment on above: Performed By: #### B MP, LIVER #### [facility] [address] [place] [address] Dr. Daniel Hahn LIVER PROFILEon 09-10-2021 Albumin [Mass/Vol] 3.7 g/dL Normal 3.4-5.0 [facility] Comment on above: Performed By: #### P SAFREE #### [facility] [address] [place] [address] Dr. Daniel Hahn Albumin/Globulin [Mass ratio] 1.1 {ratio} Normal [facility] Comment on above: Performed By: #### P SAFREE #### [facility] [address] [place] [address] Dr. Daniel Hahn ALP [Catalytic activity/Vol] 120 U/L Critically high 46-116 [facility] Comment on above: Performed By: #### P SAFREE #### [facility] [address] [place] [address] Dr. Daniel Hahn ALT [Catalytic activity/Vol] 18 U/L Normal 16-63 [facility] Comment on above: Performed By: #### P SAFREE #### [facility] [address] [place] [address] Dr. Daniel Hahn AST [Catalytic activity/Vol] 19 U/L Normal 15-37 [facility] Comment on above: Performed By: #### P SAFREE #### [facility] [address] [place] [address] Dr. Daniel Hahn BILI, CONJUGATED 0.3 mg/dL Critically high 0.0-0.2 [facility] Comment on above: Performed By: #### P SAFREE #### [facility] [address] [address] [address] Daniel Hahn Bilirubin [Mass/Vol] 1.0 mg/dL Normal 0.2-1.0 [facility] Comment on above: Performed By: #### P SAFREE #### [facility] [address] [address] [address] Daniel Hahn Globulin (S) [Mass/Vol] 3.4 g/dL Normal T [facility] Comment on above: Performed By: #### P SAFREE #### [facility] [address] [place] [address] Dr. Daniel Hahn Protein [Mass/Vol] 7.1 g/dL Normal 6.4-8.2 [facility] Comment on above: Performed By: #### P SAFREE #### [facility] [address] [place] [address] Dr. Daniel Hahn PROF CHEM 8 (BAS METB)on Anion gap [Moles/Vol] 12.4 mmol/L Normal [facility] Comment on above: Performed By: #### B MP, TSH #### [facility] [address] [place] [address] Dr. Daniel Hahn Calcium [Mass/Vol] 9.2 mg/dL Normal 8.5-10.1 [facility] Comment on above: Performed By: #### B MP, TSH #### [facility] [address] [place] [address] Dr. Daniel Hahn Chloride [Moles/Vol] 103 mmol/L Normal 98-107 [facility] Comment on above: Performed By: #### B MP, TSH #### [facility] [address] [place] [address] Dr. Daniel Hahn CO2 [Moles/Vol] 28.9 mmol/L Normal 21.0-32.0 [facility] Comment on above: Performed By: #### B MP, TSH #### [facility] [address] [place] [address] Dr. Daniel Hahn Creatinine [Mass/Vol] 1.04 mg/dL Normal 0.70-1.30 [facility] Comment on above: Performed By: #### B MP, TSH #### [facility] [address] [address] [address] Daniel Hahn EGFR-AF MOZAMBICAN >60 Normal >=60 [facility] Comment on above: Performed By: #### B MP, TSH #### [facility] [address] [address] [address] Daniel Hahn EGFR-NON AF MOZAMBICAN >60 Normal >=60 [facility] Comment on above: Performed By: #### B MP, TSH #### [facility] [facility] [address] [address] [address] Daniel Hahn Glucose [Mass/Vol] 92 mg/dL Normal 74-106 [facility] Comment on above: Performed By: #### B MP, TSH #### [facility] [address] [address] [address] Daniel Hhan Potassium [Moles/Vol] 3.3 mmol/L Critically low 3.5-5.1 [facility] Comment on above: Performed By: #### B MP, TSH #### [facility] [address] [address] [address] Daniel Hahn Sodium [Moles/Vol] 141 mmol/L Normal 136-145 [facility] Comment on above: Performed By: #### B MP, TSH #### [facility] [address] [place] [address] Dr. Daniel Hahn Urea nitrogen [Mass/Vol] 12.0 mg/dL Normal 7.0-18.0 [facility] Comment on above: Performed By: #### B MP, TSH #### [facility] [address] [address] [address] Daniel Hahn Urea nitrogen/Creatinine [Mass ratio] 11.5 mg/mg Normal [facility] Comment on above: Performed By: #### B MP, TSH #### [facility] [address] [address] [address] Daniel Hahn TSHon 09-10-2021 TSH 0.148 uIU/mL Critically low 0.358-3.740 [facility] Comment on above: Performed By: #### B MP, TSH #### [facility] [address] [place] [address] Dr. Daniel Hahn TSH RANGE SEE BELOW Normal [facility] Comment on above: Result Comment: <0.3 4 UIU/ml HYPERTHYROID 0.34-5.60 UIU/ml EUTHYROID >5.60 UIU/ml HYPOTHYROID Performed By: #### B MP, TSH #### [facility] [address] [place] [address] Dr. Daniel Hahn UA (CLEAN/CATCH) CHIEF OF HOSPITAL MEDICINE/MICRO I F IND.on 09-10-2021 Bilirubin Ql (U) SMALL Abnormal NEGATIVE [facility] Comment on above: Performed By: #### B MP, TSH #### [facility] [address] [place] [address] Dr. Daniel Hahn Clarity (U) CLEAR Normal CLEAR The [facility] Comment on above: Performed By: #### B MP, TSH #### [facility] [address] [place] [address] Dr. Daniel Hahn Color (U) DK. YELLOW Normal YELLOW The [facility] Comment on above: Performed By: #### B MP, TSH #### [facility] [address] [place] [address] Dr. Daniel Hahn Glucose Ql (U) Negative Normal NEGATIVE The [facility] Comment on above: Performed By: #### B MP, TSH #### [facility] [address] [place] [address] Dr. Daniel Hahn Hemoglobin Ql (U) Negative Normal NEGATIVE The [facility] Comment on above: Performed By: #### B MP, TSH #### [facility] [address] [place] [address] Dr. Daniel Hahn Ketones Ql (U) Negative Normal NEGATIVE [facility] Comment on above: Performed By: #### B MP, TSH #### [facility] [address] [place] [address] Dr. Daniel Hahn LEUKOCYTES Negative Normal NEGATIVE [facility] Comment on above: Performed By: #### B MP, TSH #### [facility] [address] [place] [address] Dr. Daniel Hahn Nitrite Ql (U) Negative Normal NEGATIVE [facility] Comment on above: Performed By: #### B MP, TSH #### [facility] [address] [place] [address] Dr. Daniel Hahn pH (U) 6.0 [pH] Normal 5-9 [facility] Comment on above: Performed By: #### B MP, TSH #### [facility] [address] [address] [address] Daniel Hahn SPEC GRAVITY 1.025 Normal 1.005-<=1.02 5 [facility] Comment on above: Performed By: #### B MP, TSH #### [facility] [address] [place] [address] Dr. Daniel Hahn UA PROTEIN TRACE Normal NEGATIVE/ TRACE [facility] Comment on above: Performed By: #### B IGNACIO, TSH #### [facility] [address] [place] [address] Dr. Daniel Hahn UR MICRO IND NOT INDICATED Normal [facility] Comment on above: Performed By: #### B IGNAICO, TSH #### [facility] [address] [place] [address] Dr. Daniel Hahn Urobilinogen Qn (U) 2.0 {Julien'U}/dL Abnormal 0.2 - 1. 0 [facility] Comment on above: Performed By: #### B IGNACIO, TSH #### [facility] [address] [place] [address] Dr. Daniel Hahn Vital Signs Date Time Vital Sign Value Performing Clinician Facility 05-19-2023 12:15-0500 Body temperature 96 [degF] Addie Hunt Other [facility] 05-19-2023 12:15-0500 Body weight 63.96 kg Addie Hunt Other [facility] 05-19-2023 12:15-0500 Diastolic blood pressure 56 mm[Hg] Addie Hunt Other [facility] 05-19-2023 12:15-0500 Systolic blood pressure 90 mm[Hg] Addie Hunt Other [facility] 05-14-2023 11:15-0500 Body temperature 97.8 [degF] Addie Hunt Other [facility] 05-14-2023 11:15-0500 Body weight 72.58 kg Addie Hunt Other [facility] 05-14-2023 11:15-0500 Diastolic blood pressure 82 mm[Hg] Addie Hunt Other [facility] 05-14-2023 11:15-0500 SaO2% (BldA) [Mass fraction] 98 % Addie Hunt Other [facility] 05-14-2023 11:15-0500 Systolic blood pressure 156 mm[Hg] Addie Hunt Other [facility] 04-24-2023 11:17-0500 Body temperature 98.7 [degF] Carmelita Aichholz Work Phone: [facility] 04-24-2023 11:17-0500 Diastolic blood pressure 73 mm[Hg] Carmelita Aichholz Work Phone: [facility] 04-24-2023 11:17-0500 Heart rate 77 /min Carmelita Aichholz Work Phone: [facility] 04-24-2023 11:17-0500 Respiratory rate 20 /min Carmelita Aichholz Work Phone: [facility] 04-24-2023 11:17-0500 SaO2% (BldA) [Mass fraction] 91 % Carmelita Aichholz Work Phone: [facility] 04-24-2023 11:17-0500 Systolic blood pressure 145 mm[Hg] Carmelita Aichholz Work Phone: [facility] 04-23-2023 06:26-0500 Body weight 74.3 kg Carmelita Aichholz Work Phone: [facility] 04-23-2023 03:28-0500 Inhaled oxygen flow rate 2 L/min Carmelita Aichholz Work Phone: [facility] 04-20-2023 09:46-0500 Body height 162.56 cm Carmelita Aichholz Work Phone: [facility] 04-20-2023 09:46-0500 Body mass index (BMI) [Ratio] 27.6 kg/m2 Carmelita Aichholz Work Phone: [facility] 04-17-2023 16:49-0500 Body temperature 99.5 [degF] Carmelita Aichholz Work Phone: [facility] 04-17-2023 16:49-0500 Diastolic blood pressure 79 mm[Hg] Carmelita Aichholz Work Phone: [facility] 04-17-2023 16:49-0500 Heart rate 86 /min Carmelita Aichholz Work Phone: [facility] 04-17-2023 16:49-0500 Respiratory rate 20 /min Carmelita Aichholz Work Phone: [facility] 04-17-2023 16:49-0500 SaO2% (BldA) [Mass fraction] 93 % Carmelita Aichholz Work Phone: [facility] 04-17-2023 16:49-0500 Systolic blood pressure 120 mm[Hg] Carmelita Aichholz Work Phone: [facility] 04-17-2023 16:48-0500 Body height 162.56 cm Carmelita Aichholz Work Phone: [facility] 04-17-2023 16:48-0500 Body weight 73.93 kg Carmelita Aichholz Work Phone: [facility] 03-24-2023 11:45-0500 Diastolic blood pressure 100 mm[Hg] Carmelita Aichholz Work Phone: [facility] 03-24-2023 11:45-0500 Heart rate 68 /min Carmelita Aichholz Work Phone: [facility] 03-24-2023 11:45-0500 Systolic blood pressure 162 mm[Hg] Carmelita Aichholz Work Phone: [facility] 03-24-2023 11:05-0500 Body height 180.34 cm Carmelita Aichholz Work Phone: [facility] 03-24-2023 11:05-0500 Body weight 70.3 kg Carmelita Aichholz Work Phone: [facility] 03-16-2023 14:00-0500 Diastolic blood pressure 88 mm[Hg] Glo Mani Other [facility] 03-16-2023 14:00-0500 Respiratory rate 18 /min Glo Mani Other [facility] 03-16-2023 14:00-0500 SaO2% (BldA) [Mass fraction] 98 % Glo Mani Other [facility] 03-16-2023 14:00-0500 Systolic blood pressure 172 mm[Hg] Glo Mani Other [facility] 03-11-2023 10:00-0500 Body temperature 97.8 [degF] Linda Michael Other [facility] 03-11-2023 10:00-0500 Body weight 69.85 kg Linda Michael Other [facility] 03-11-2023 10:00-0500 Diastolic blood pressure 64 mm[Hg] Linda Michael Other [facility] 03-11-2023 10:00-0500 SaO2% (BldA) [Mass fraction] 98 % Linda Michael Other [facility] 03-11-2023 10:00-0500 Systolic blood pressure 114 mm[Hg] Linda Michael Other [facility] 02-26-2023 10:19-0400 Diastolic blood pressure 104 mm[Hg] Carmelita Aichholz Work Phone: [facility] 02-26-2023 10:19-0400 Heart rate 54 /min Carmelita Aichholz Work Phone: [facility] 02-26-2023 10:19-0400 Respiratory rate 16 /min Carmelita Aichholz Work Phone: [facility] 02-26-2023 10:19-0400 SaO2% (BldA) [Mass fraction] 98 % Carmelita Aichholz Work Phone: [facility] 02-26-2023 10:19-0400 Systolic blood pressure 168 mm[Hg] Carmelita Aichholz Work Phone: [facility] 02-18-2023 09:45-0400 Body temperature 97.2 [degF] Linda Michael Other [facility] 02-18-2023 09:45-0400 Diastolic blood pressure 92 mm[Hg] Linda Rodriguez Other [facility] Other 02-18-2023 09:45-0400 SaO2% (BldA) [Mass fraction] 97 % Linda Michael Other [facility] 02-18-2023 09:45-0400 Systolic blood pressure 164 mm[Hg] Linda Michael Other [facility] 02-10-2023 15:02-0400 Body height 4419.6 cm Carmelita Zavala Work Phone: [facility] 02-10-2023 15:02-0400 Body weight 63.87 kg Carmelita Zavala Work Phone: [facility] Encounters Encounter Date Encounter Type Care Provider Facility Start: 06-19-2023 ambulatory Sancho Preciado ty:[facility] Start: 06-09-2023 ambulatory Sancho Preciado ty:[id number] Start: 05-26-2023 End: 05-27-2023 ambulatory Sancho LEE Facility: [facility] Start: 05-26-2023 End: 05-26-2023 Patient encounter procedure Sancho LEE [facility] Start: 05-21-2023 End: 05-21-2023 ambulatory Addie Hunt Other [facility] Start: 05-21-2023 Telephone encounter Addie Aldana [facility] Start: 05-19-2023 End: 05-19-2023 ambulatory Addie Hunt Other [facility] Other Start: 05-19-2023 Patient encounter procedure Addie Hunt [facility] V[facility] Surgery Start: 05-14-2023 End: 05-14-2023 ambulatory Addie Hunt Other [facility] Other Start: 05-14-2023 FQHC visit, estab pt Addie Hunt [facility] Vascular Surgery Start: 04-21-2023 End: 04-21-2023 ambulatory Linda Rodriguez Other [facility] Other Start: 04-21-2023 Telephone encounter Linda Zhu [facility] V[facility] Surgery Start: 04-20-2023 End: 04-24-2023 Evaluation and management of inpatient Linda Rodriguez Facility:[facility] Start: 04-20-2023 End: 04-24-2023 Evaluation and management of inpatient Carmelita Garciaayoholz Work Phone: [facility] [place] [address] Surgical Work Phone: Start: 04-17-2023 End: 04-17-2023 Emergency department patient visit Mary Carey Facility:[facility] Start: 04-17-2023 End: 04-17-2023 Emergency department patient visit Carmelitacindi Zavala Work Phone: [facility]-Emergency Room Work Phone: Start: 04-17-2023 End: 04-18-2023 ambulatory Sancho LEE Facility:[facility] Start: 04-13-2023 End: 04-13-2023 ambulatory Linda Rodriguez Facility:[facility] Start: 04-13-2023 End: 04-13-2023 Patient encounter procedure Carmelita Aicayoholz Work Phone: [facility]-Pre-Surgical Testing Work Phone: Start: 03-25-2023 End: 03-25-2023 ambulatory Glo Edwardsoroge Other [facility] Other Start: 03-25-2023 Telephone encounter Glo Edwardsoroge [facility] Start: 03-24-2023 Encounter by marquise goss Glo Mani [facility] Start: 03-24-2023 End: 03-24-2023 ambulatory Carmelita Zavala Work Phone: [facility] Work Phone: Start: 03-24-2023 End: 03-24-2023 Patient encounter procedure Carmelita Lucas Work Phone: [facility] Work Phone: Start: 03-18-2023 End: 03-19-2023 ambulatory Sancho LEE Facility:[facility] Start: 03-18-2023 End: 03-18-2023 Patient encounter procedure Sancho LEE [facility] Start: 03-16-2023 End: 03-16-2023 ambulatory Glo Singleton Other [facility] Other Start: 03-16-2023 Encounter for other preprocedural examination Glo Mani [facility] Start: 03-16-2023 Office outpatient ne w 45 minutes Glo Mani [facility] Start: 03-16-2023 Preprocedural examination done Glo Edwardsoroge Other [facility] Other Start: 03-11-2023 Office outpatient vi sit 40 minutes Linda Rodriguez [facility] Start: 03-11-2023 End: 03-11-2023 ambulatory Carmelita Zavala Work Phone: [facility] Other Start: 03-11-2023 End: 03-11-2023 Patient encounter procedure Carmelita Zavala Work Phone: [facility]-Ultrasound [facility] Start: 02-26-2023 End: 02-26-2023 ambulatory Linda Rodriguez Facility:[facility] Start: 02-26-2023 End: 02-26-2023 ambulatory Carmelita Zavala Work Phone: [facility] Work Phone: Start: 02-26-2023 End: 02-26-2023 Patient encounter procedure Carmelita Zavala Work Phone: [facility]-CT Scan [facility] [place] Work Phone: Start: 02-18-2023 End: 02-18-2023 ambulatory Linda Rodriguez Other [facility] Other Start: 02-18-2023 Office outpatient ne w 60 minutes Linda Rodriguez [facility] Vascular Surgery Start: 02-10-2023 End: 02-10-2023 ambulatory Sancho Lee Facility:[facility] Start: 02-10-2023 End: 02-10-2023 Patient encounter procedure Carmelita Zavala Work Phone: [facility]MRI [facility] [place] Work Phone: Start: 12-29-2022 End: 12-29-2022 ambulatory Carmelita Stevensonholemily Work Phone: [facility] Work Phone: Start: 12-29-2022 End: 12-29-2022 Patient encounter procedure Carmelita Saldanaz Work Phone: [facility] [place] Work Phone: Start: 11-21-2022 End: 11-22-2022 ambulatory Sancho LEE Facility:[facility] Start: 09-22-2022 End: 09-23-2022 ambulatory Sancho LEE Facility:[facility] Start: 09-22-2022 End: 09-23-2022 ambulatory Sancho LEE Facility:[facility] Start: 08-25-2022 End: 08-26-2022 ambulatory [employer] CARMELITA ZAVALA Facility:[facility] Start: 07-21-2022 ambulatory LINDA WORKMAN [facility] Start: 01-14-2022 End: 01-14-2022 ambulatory [employer] CARMELITA LUCAS Facility:[facility] Start: 12-24-2021 End: 12-25-2021 ambulatory [employer] CARMELITA LUCAS Facility:[facility] Start: 10-29-2021 End: 10-29-2021 Patient encounter procedure Mady Kramer Jr. [facility] Start: 10-22-2021 End: 10-23-[address] MADY Arboleda Facility:[facility] Start: 10-07-2021 End: 10-07-2021 ambulatory [employer] C[employer]ER CARMELITA ZAVALA Facility:[facility] Start: 09-26-2021 End: 09-27-2021 ambulatory SPRING C[employer]ER CARMELITA LUCAS Facility:[facility] Start: 09-10-2021 End: 09-11-2021 ambulatory [employer]ING C[employer]ER CARMELITA LUCAS Facility:[facility] Procedures Date Procedure Procedure Detail Performing Clinician Start: 04-20-2023 Antibody screen Linda Rodriguez Comment on above: Order Comment: Trans fuse now? N Result Comment: PERF ORMED BY: [address] [id number] PATHOLOGIST MECHANICAL APPLICATIONS ENGINEER NOAH PINEDA M.D. Start: 04-20-2023 Femoral endarterectomy Carmelita Zavala Work Phone: Start: 04-17-2023 Plain X-ray of right wrist Carmelita Zavala Work Phone: Start: 04-13-2023 Urine culture Carmelita quinteros Work Phone: Start: 03-24-2023 Radionuclide myocard ial perfusion stress study Carmelita Zavala Work Phone: Start: 03-11-2023 Duplex scan of lower limb arteries Carmelita Zavala Work Phone: Start: 02-26-2023 Computed tomography angiography of abdominal and/or pelvic blood vessel Carmelita Zavala Work Phone: Start: 02-10-2023 MR prostate wo/w con Lisa lambert Joseayoneli Work Phone: Start: 08-25-2022 PSA screening [employer] CARMELITA STEVENSONBRODERICKEmily Comment on above: Performed By: #### P SAFREE #### [facility] [address] [address] [address] Daniel Hahn Start: 04-18-2021 Cystoscopy and retro grade pyelography Mady Kramer Jr. Comment on above: laser lithotripsy , ureteroscopy stone extraction .left stent placement Start: 01-11-2019 Cystoscopy Mady yost Jr. Start: 05-04-2009 Repair of aneurysm Ayaka Kramer Jr. Comment on above: Behind both of my steve russo. Start: 05-04-1967 Arthroscopy of knee Forest Kramer Jr. Comment on above: Right knee Amputation of lower limb Forest Kramer Jr. Comment on above: B/L, above the knee Colonoscopy Mady Arboleda Comment on above: over 10 years ago Extraction of cataract Vahid Kramer Jr. Comment on above: B/L Tonsillectomy Mady arizmendi Plan of Treatment Date Care Activity Detail Author Start: 04-23-2023 [facility] Start: 04-21-2023 Referral to Abstract Manager [facility] Start: 04-20-2023 Hospital admission [facility] Patient Education [facility] Work Phone: Patient referral [facility] Work Phone: [facility] Immunizations Immunization Date Immunization Notes Care Provider Lilian lew 04-22-2022 SARS-CoV-2 (COVID-19 ) [id number] Sancho LEE [facility] 02-19-2021 SARS-CoV-2 (COVID-19 ) mRNA BNT-162b2 vax Sancho LEE [facility] 01-28-2021 SARS-CoV-2 (COVID-19 ) mRNA BNT-162b2 vax Sancho LEE [facility] 02-13-2020 influenza virus vacc ine, unspecified formulation Mady Kramer Jr. [facility] 02-02-2020 pneumococcal conjuga te vaccine, 13 valent Sancho LEE [facility] 12-30-2019 influenza virus vacc ine, unspecified formulation Sancho LEE [facility] 04-10-2019 pneumococcal conjuga te vaccine, 13 valent Sancho LEE [facility] 01-11-2019 influenza virus vacc ine, unspecified formulation Sancho LEE [facility] 03-15-2018 influenza virus vacc ine, unspecified formulation Sancho LEE [facility] 03-15-2018 pneumococcal polysaccharide vaccine, 23 valent Sancho LEE [facility] 04-13-2017 influenza virus vacc ine, unspecified formulation Sancho LEE [facility] 01-30-2017 pneumococcal conjuga te vaccine, 13 valent Sancho LEE [facility] 09-21-2014 zoster vaccine, live Sancho LEE [facility] 03-30-2012 pneumococcal polysaccharide vaccine, 23 valent Mady Williams Ogden [facility] Comment on above: Early/Late Reason: N ew Med Order Payers Date Payer Category Payer Self-pay [id number] 1958 Medicare [id number] 1958 Unknown [id number] 1945 Unknown [id number] [id number] 1945 Unknown [id number] 2.16.840.1.688982.3.579.2.593 1946 Unknown [id number] 2.16.840.1.674911.3.579.2.593 1946 Unknown [id number] 2.16.840.1.325105.3.579.2.593 1946 Unknown [id number] 2.16.840.1.468003.3.579.2.593 1946 Unknown [id number] 2.16.840.1.052766.3.579.2.593 1946 Unknown [id number] 2.16.840.1.965895.3.579.2.593 1946 Unknown [id number] 2.16.840.1.821041.3.579.2.727 1946 Unknown [id number] 2.16.840.1.198802.3.579.2.727 1946 Unknown [id number] 2.16.840.1.817347.3.579.2.727 1946 Unknown [id number] 2.16.840.1.268335.3.579.2.727 1946 Unknown [id number] 2.16.840.1.676698.3.579.2.727 1946 Unknown [id number] 2.16.840.1.520861.3.579.2.727 1946 Unknown [id number] 2.16.840.1.482483.3.579.2.727 Private Health Insurance [facility] [id number] Unknown [id number] 2.16.840.1.730137.3.579.2.531 Unknown [id number] 2.16.840.1.526259.3.579.2.531 Unknown [id number] 2.16.840.1.822632.3.579.2.531 Unknown [id number] 2.16.840.1.475328.3.579.2.531 Unknown [id number] 2.16.840.1.464435.3.579.2.531 Unknown [id number] 2.16.840.1.816158.3.579.2.531 Unknown [id number] 2.16.840.1.106915.3.579.2.531 Social History Date Type Detail Facility Start: 03-21-2021 End: 11-21-2022 Tobacco smoking status Never smoked tobacco (finding) [facility] Sex Assigned At Male [facility] Start: 06-18-2021 End: 06-18-2021 Tobacco smoking status NHIS Ex-smoker (finding) [facility] Start: 1945 Sex Assigned At Male F [facility] Tobacco smoking status Never [facility] Medical Equipment Procedure Code Equipment Code Equipment Origin al Text Equipment Identifier Dates CYSTOSCOPY RETROGRADE STENT INSERTION Williams Ogden MD, Mady L 04/18/21 Non Biological Ureter L [id number] FDA Start: 04-18-2021 Goals Date Patient Goal Desired Activity /State Functional Status Date Assessment Result Facility 04-24-2023 Functional status Patient at Baseline [facility] Work Phone: 10-29-2021 Functional Status N/A [facility] Mental Status Date Assessment Result Facility 04-24-2023 Cognitive function Cognitive Sta tus Patient at Baseline [facility] Work Phone: Clinical Notes 10-29-2021 to 05-19-2023 Note Date & Type Note Facility 05-19-2023 Evaluation note Encounter Date Diagnosis Assessment Notes May, 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 He does have presence of some skin necrosis about the mid wound region which appears stable from his last visit 5 days ago. Continue wound care the same with washing daily with mild soap and water, pat dry, apply clean dry dressing. It is imperative to keep this wound clean and dry to avoid any infection as this is a nice warm moist environment for bacterial growth. This is an added factor for him as he does spend most of his time in a wheelchair due to bilateral lower extremity above-knee amputations. He also wears a brief with Chen catheter in place as well. We will plan to see him again next week at his normal follow-up for additional wound check. 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 He has a bit of skin necrosis along the mid suture line but no signs of infection or concern at this time. We did remove the gifty from both the proximal and distal edges of the wound but left the mid wound gifty over the area of skin necrosis intact. We will see him again in a week or 2 for additional wound check and staple removal. It is imperative that this wound to be kept clean and dry. It should be washed daily with mild soap and water, allowed to dry, and apply clean dry dressing. This should be done daily. This area infected easily as it is a warm moist environment for bacterial growth. He spends most of his time in a wheelchair therefore his risks are even higher for bacterial growth at this region. This was discussed with his son in the room as well as the aid from his long-term care facility. Progress note sent back to his long-term care facility with wound care instructions also. I will also forward today's office note to [facility] as well. They verbalized understanding in the office today, agree with plan, deny any questions. Will see him in a week or 2, sooner as needed. May, Encounter for surgical aftercare following surgery of circulatory system (ICD-10 - Z48.812) [facility] Other 01-04-2024 Hospital Discharge instructions Follow Up Care 05/07/2023 09:48:20 With:JESUS DEAL, Sancho Narayanan, URL Address: [facility] [address] [place] [address]- [phone] When: Unknown [facility] 12-20-2023 Progress note Author Linda Rodriguez [facility] April 22, 2023 8:46am Note Date/Time April 22, 2023 8:14am [facility] [address] [place] [id number] Vascular Surgery Progress Note Signed Patient: Sebastian Diego MR#: [id number] : 1945 Acct:[id number] Age/Sex: 77 / M Adm Date: 3 Loc: 4N Room: 0U2563-7 Type: ADM IN Attending Dr: Linda Rodriguez MD Copies to: ~ Date of Service: 04/22/2023 Subjective Subjective Interval history: No acute events overnight. He reports feeling soreness in the inguinal region b/l, worse on the right side and worse with movement of his legs, overall unchanged from yesterday. He also complains of persistent shoulder pain at rest and with movement following his injury yesterday. He is concerned that he is notgetting better and is unsure if he is ready to go home. He reports not sleeping well due to buttock pain. We did order PT/OT yesterday however when they came around for evaluation he refused. Will try again today. Exam Physical Exam Vital Signs: Temp Pulse Resp BP Pulse Ox O2 Del Method O2 Flow Rate 98.7 F 81 16 123/67 94 L Room Air 1 04/22/23 03:47 04/22/23 03:47 04/22/23 03:47 04/22/23 03:47 04/22/23 03:47 04/22/23 03:47 04/20/23 20:00 Narrative: 77-year-old male, no acute distress. He is alert and oriented x 3. He has no shortness of breath with our conversation. He has bilateral lower extremity amputations. He has a Chen catheter in place. Prevena dressing to right groin with good seal. No palpable hematoma. No pain with palpation to this region. He wears a brace on the right wrist. Const General: cooperative and no acute distress Objective Labs 04/21/23 05:33 04/21/23 07:36 Other Labs: Laboratory Results - last 24 hr 04/21/23 07:36 Potassium 4.0 A&P - Vascular Assessment/Plan (1) Femoral artery aneurysm, right: Encouraged participation with PT/OT today. Patient agrees as he does admit he is in probable need of some rehab prior to going home because he lives alone. He does not think he is able to take care of himself at this point in time. Once again I encouraged participation with PT/OT today. He agrees. Plan Patient continues to have no postoperative complications, with no concerns for hematoma or infection on physical exam. He reports an aching pain at his surgical site that is stable. He also reports persistent shoulder pain since yesterday that limits his ability to use his arm, and expresses concerns regarding going home in his current condition. PT was unable to see the patient yesterday due to patient refusal. He is a double amputee and prior to this admission lived home by himself, so we will proceed with consult to social work regarding placement prior to discharge. Documented By: Addie Hunt APRN 04/22/23 0 814 Signed By: <Electronically signed by NATHALIA Hunt> 04/22/23 0822 <Electronically signed by Linda Rodriguez MD> 04/22/23 0846 [facility] Work Phone: [phone]) 825-891112-19-2023 Progress note Author Linda Rodriguez [facility] April 21, 2023 3:33pm Note Date/Time April 21, 2023 8:41am [facility] [address] [place] [address] Vascular Surgery Progress Note Signed Patient: Sebastian Diego MR#: [id number] : 1945 Acct:[id number] Age/Sex: 77 / M Adm Date: 3 Loc: Room: [address] [place] [address] Type: ADM IN Attending Dr: Linda Rodriguez MD Copies to: ~ Date of Service: 04/21/2023 Subjective Subjective Interval history: Patient has done well overnight after 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 He has had no overnight complications. This morning he tellsme that he slept better than he has in weeks here in the hospital last night. He denies any issues or concerns this morning. 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 He otherwise denies any pain this morning. Dr. Rodriguez dictating. The patient states that he suddenly hurt his left shoulder last night when he was trying to pull himself up. Overall however the patient is very appreciative of his care and thankful. Exam Physical Exam Vital Signs: Temp Pulse Resp BP Pulse Ox O2 Del Method O2 Flow Rate 97.9 F 83 14 110/63 92 L Room Air 1 04/21/23 08:09 04/21/23 08:09 04/21/23 08:09 04/21/23 08:09 04/21/23 08:09 04/21/23 08:20 04/20/23 20:00 Narrative: 77-year-old male, no acute distress. He is alert and oriented x 3. He has no shortness of breath with our conversation. He has bilateral lower extremity amputations. He has a Chen catheter in place. Prevena dressing to right groin with good seal. No palpable hematoma. No pain with palpation to this region. Const General: cooperative, comfortable and no acute distress Objective Labs 04/21/23 05:33 04/21/23 05:33 Other Labs: Laboratory Results - last 24 hr 04/20/23 04/20/23 04/20/23 08:39 09:43 11:56 Corrected WBC Uncorrected WBC Count RBC Hgb Hct MCV MCH MCHC RDW Plt Count MPV Neut % (Auto) Lymph % (Auto) [place] % (Auto) Eos % (Auto) Baso % (Auto) Nucleat RBC Rel Count Neut # (Auto) Lymph # (Auto) [place] # (Auto) Eos # (Auto) Baso # (Auto) Activated Clotting Time 250 H PHA Creatinine Clear Sodium Potassium Chloride Carbon Dioxide Anion Gap BUN Creatinine Est GFR (CKD-EPI) Glucose POC Glucose POC Glucose Comment Calcium Blood Type O Positive Blood Type Recheck O Positive Antibody Screen Negative Crossmatch (AHG) See Detail 04/20/23 04/20/23 04/21/23 14:02 15:00 05:33 Corrected WBC 17.5 H Uncorrected WBC Count 17.5 H RBC 3.41 L Hgb 10.6 L Hct 31.7 L MCV 92.8 MCH 31.1 MCHC 33.5 RDW 13.8 Plt Count 244 MPV 8.1 Neut % (Auto) 91.3 Lymph % (Auto) 3.9 [place] % (Auto) 4.6 Eos % (Auto) 0.0 Baso % (Auto) 0.2 Nucleat RBC Rel Count 0.0 Neut # (Auto) 16.0 H Lymph # (Auto) 0.7 L [place] # (Auto) 0.8 Eos # (Auto) 0.0 Baso # (Auto) 0.0 Activated Clotting Time PHA Creatinine Clear Sodium Potassium Chloride Carbon Dioxide Anion Gap BUN Creatinine Est GFR (CKD-EPI) Glucose POC Glucose 154 156 POC Glucose Comment Glu2: cleaned meter Calcium Blood Type Blood Type Recheck Antibody Screen Crossmatch (AHG) 04/21/23 05:33 Corrected WBC Uncorrected WBC Count RBC Hgb Hct MCV MCH MCHC RDW Plt Count MPV Neut % (Auto) Lymph % (Auto) [place] % (Auto) Eos % (Auto) Baso % (Auto) Nucleat RBC Rel Count Neut # (Auto) Lymph # (Auto) [place] # (Auto) Eos # (Auto) Baso # (Auto) Activated Clotting Time PHA Creatinine Clear 54.31 Sodium 137 Potassium Chloride 106 Carbon Dioxide 24.7 Anion Gap TNP BUN 19 Creatinine 1.06 Est GFR (CKD-EPI) > 60.0 Glucose 130 H POC Glucose POC Glucose Comment Calcium 8.0 L Blood Type Blood Type Recheck Antibody Screen Crossmatch ([facility]) A&P - Vascular Assessment/Plan (1) Femoral artery aneurysm, right: Patient has done well overnight with no postoperative complications. He was admitted with Chen catheter in place from alternate provider. We will leave this for now and check into the reasoning for the catheter, otherwise that can be removed as far as vascular is concerned this morning. Charge nurse notified. This patient is a double amputee and prior to this admission he lived at home by himself. We will have PT/OT see the patient today and see how he does and evaluate for any home-going needs. He is taking fluids well, we can stop his IVfluids and lock his IV. Dr. Rodriguez dictating. I agree with the above. Will consider orthopedic surgery input for shoulder injury. The patient refused physical therapy today. I will ask the high school social science teacher to see him with regards to placement. I am not exactly comfortable with this patient being a double amputee going home alone after major surgery. This patient will very likely need rehab. We will keep aneye on the shoulder for now. Time Spent with Patient Time Spent With Patient (min): 25 Documented By: Addie Hunt APRN 04/21/23 0 838 Signed By: <Electronically signed by NATHALIA Hunt> 04/21/23 0847 <Electronically signed by Linda Rodriguez MD> 04/21/23 0246 [facility] Work Phone: [phone] 461-377712-18-2023 Procedure [facility]11-21-2023 Procedure [facility]11-13-2023 Evaluation note* Encounter Date Diagnosis Assessment Notes Treatment Notes Treatment Clinical Notes Mar, Preoperative examination (ICD-10 - Z01.818) Mr. Diego is a 77-year-old male with past medical history significant for hypertension, CVA, TIAs, bilateral AKA in 2011 and 2012, hypothyroidism who presents for preop risk stratification prior to right femoral aneurysm repair Assessment: Preop cardiac risk stratification. History of CVA and TIAs Bilateral AKA Hypothyroidism Plan:EKG today shows normal sinus rhythm with minor ST depressions in the inferior leads and T wave inversions in the lateral leads. -Given EKG abnormality, prior strokes/PAD with functional limitation in the setting of bilateral AKA, will obtain Lexiscan stress MPI for further risk stratification prior to vascular surgery. Mar, Abdominal aortic aneurysm (AAA) without rupture, unspecified part (ICD-10 - I71.40) Mar, PVD (posterior vitreous detachment), bilateral (ICD-10 - H43.813) Mar, Abnormal EKG (ICD-10 - R94.31) [facility] 11-08-2023 Evaluation note* Encounter Date Diagnosis Assessment Notes Treatment Notes Treatment Clinical Notes Mar, Femoral artery aneurysm, right (ICD-10 - I72.4) This patient has a massive aneurysm in the right groin. It measures 9.1 x 7.5 x 6.9 cm. We did have a duplex carried out today which did reveal flow in the aneurysm. This will need to be repaired. This patient is at risk for rupture. The risks and benefits as well as medical surgical, alternatives were explained to the patient. We discussed the surgery and its potential complications and their management. I explained to him that he had about a 5 to 6% chance of a very bad outcome. Bad outcome or complications including myocardial infarction stroke, , need for additional surgeries, infection, renal failure and pneumonia. We also discussed several more complications and their management which are not listed here today. Despite these potential horrible outcomes the patient agrees to proceed and we will look for preoperative risk assessment stratification by cardiology to safely proceed with his general anesthetic case. Patient also states that he is very aggressive during anesthesia and and the anesthesia personnel should be aware of this. I will inform my colleagues of this. I did explain to the patient that he does need to allow us to help him he voiced understanding of this. [facility] Other 10-18-2023 Evaluation note* Encounter Date Diagnosis Assessment Notes Treatment Notes Treatment Clinical Notes Feb, Femoral artery aneurysm, right (ICD-10 - I72.4) This patient has a very large right femoral artery aneurysm based on clinical exam and MR scan. The measurement is 10 x 6 cm. It is nontender to palpation. I had a lengthy discussion with this patient about his aneurysm. We will need to order a CT angiogram for further diagnostic work-up. This will need repair. He is at risk for rupture. He understands and agrees to proceed with a CT scan and we will see him back after the study to for further recommendations. 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 Last seen in our office 10/29/21 by DLS due to BPH, Gross Hematuria & Ureteral Stone. *Flomax 0.4mg QD therapy at that time-still taking, ordered by PCP. Pt has been re referred to our office by Dr Bruno Rizzo due to elevated PSA. PSA F/T done 08/25/22- 15.04 & 20.8% Denies any urinary symptoms. Denies family Hx of Prostate Cancer. History of Present Illness Tests reviewed: reviewed UA, referral records, PSAs. I have reviewed the previous health record information and history for this patient from Dr. Kramer. I have reviewed and verified the staff HPI to be accurate for this encounter. There have been no associated fever, chills, flank pain, or blood in the urine. Denies any urinary infections since last encounter. Review of Systems PHQ Score Initial Depression Screen Score: 0 ROS - Provider Constitutional: denies weight loss, denies hot flashes. Eyes: denies eye problems. Gastrointestinal: denies nausea, denies vomiting. Cardiovascular: denies chest pain or angina. Integumentary: no dryness Musculoskeletal: denies musculoskeletal symptoms. ENMT: denies otolaryngeal symptoms. Respiratory: no shortness of breath. Heme/Lymph: denies easy bleeding tendency, denies easy bruising tendency. Psychiatric: no confusion, no anxiety. Genitourinary: See HPI. Physical Exam Vitals & Measurements HR: 68(Peripheral) RR: 16 BP: 130/70 General Appearance: alert, no distress, well nourished, well developed male. Genitourinary: normal scrotum, normal testes, normal urethra, normal epididymis, normal vas deferens/spermatic cord. Flank Pain: none. Bladder: nonpalpable. Prostate: normal prostate, estimated weight 35 gms, no hard nodule observed. Assessment/Plan Sebastian is a 77 yo male established pt (former DLS pt) who was re-referred by Dr. Rizzo due to elevated PSA. Pt here with his son today. Pt ambulates with wheelchair, bilateral BKAs. 1. Elevated PSA (R97.20: Elevated prostate specific antigen [PSA]) PSA: 07/31/19 - 1.50 03/14/21 - 2.90 & 29% 08/25/22 - 15.04 & 21% Reviewed pt's elevated PSA and educated him on PSA screening. No family hx of prostate ca. No prostatitis sxs. Per son, pt had a UTI about a year ago. Discussed MRI of prostate with possible fusion bx to follow pending the SHAHZAD today 35 gm, no nodules. Follow up after MRI of prostate or sooner if needed. Pt understands and agrees with plan. 2. BPH with urinary obstruction (N40.1: Benign prostatic hyperplasia with lower urinary tract symptoms) No sample provided for UA today. Taking Flomax 0.4 mg qd through PCP. Follow-up With When Contact Information JESUS DEAL, Sancho Narayanan, URL [facility] [address], [place] [address]- Additional Instructions: schedule MRI of prostate, f/u after Patient Education Prostate Cancer Screening I, Lynne Mas, personally scribed for Dr. Lee on 09/22/2022 12:44:01. . Documentation recorded by the scribe, Lynne Mas, accurately reflects the services(s) I performed and decisions made by me. Authenticated by Dr. Lee on 09/22/2022 12:47:41. Problem List/Past Medical History Ongoing Anticoagulated BPH with urinary obstruction Elevated PSA Feeling of incomplete bladder emptying Gross hematuria HTN - Hypertension Kidney stones Microscopic hematuria PVD Stroke Ureteral stone Urge incontinence Urinary urgency Weak urinary stream Historical Aneurysm DVT gout Hypercholesterolemia Infection of urinary tract Straining to void Urine frequency Procedure/Surgical History Cystoscopy and retrograde pyelography (04/18/2021), Cystoscopy (01/11/2019), Repair of aneurysm (2009), Arthroscopy of knee (1967), Amputation of leg, Colonoscopy, Excision of cataract, tonsillectomy. Medications aspirin 81 mg Oral EC Tab, 81 mg= 1 tab(s), Oral, Daily clopidogrel 75 mg Tab, 75 mg= 1 tab(s), Oral, Daily duloxetine 30 mg oral delayed release capsule Flomax 0.4 mg Cap, 0.4 mg= 1 cap(s), Oral, Daily, 3 refills ibuprofen 200 mg oral capsule, 200 mg= 1 cap(s), Oral, q6hr, PRN levothyroxine 50 mcg (0.05 mg) Tab, 50 mcg= 1 tab(s), Oral, Daily Lipitor 10 mg Tab, 10 mg= 1 tab(s), Oral, Daily lisinopril 5 mg Tab, 5 mg= 1 tab(s), Oral, Daily Lyrica 150 mg Cap, Oral, BID metformin 500 mg Tab Potassium Chloride (Wxv-Dbbp-Geq 10) 10 mEq oral tablet, extended release RA VITAMIN D3 2,000 UNIT SFGL, 0 Allergies beta blockers (Weakness, Vomiting, Dizziness) Social History Alcohol - Denies Alcohol Use, 12/30/2018 Substance Abuse - Denies Substance Abuse, 01/28/2011 Tobacco - Denies Tobacco Use, 03/17/2019 Never (less than 100 in lifetime) Tobacco Use:. Never Smokeless Tobacco Use:., 09/22/2022 Family History COPD: Brother. Stroke: Mother and Father. Immunizations Vaccine Date Status Comments SARS-CoV-2 (COVID-19) mRN (more content not included)...[facility]:Result Comment: Electronically Signed By: Lynne Mas.br\Date and Time Signed: 09/22/22 13:12 EDT\.br\Electronically Co-Signed By: Sancho LEE MD\.br\Date and Time Co-Signed: 09/22/22 13:22 [id number] NoteUN[facility]CHOLOGY [address] [place] [address] Mr. Sebastian Diego was seen for a neuropsychological evaluation on 07/21/2022. A report describing the results of this evaluation will be posted upon completion. Linda Workman, PhD, ABPP Board Certified Clinical Neuropsychologist OUTPATIENT REHABILITATION SERVICES NEUROPSYCHOLOGY [address] [facility] [address] FAX: [phone] NEUROPSYCHOLOGICAL EVALUATION DATES OF SERVICE: 07/21/2022 DIANGOSES: Other specified mental disorders due to known physiological condition; memory impairment DATE OF ONSET: Unknown DATE OF : 1945 AGE: 77-years TIME SPENT: (See Table) REASON FOR REFERRAL: This is the initial neuropsychological evaluation (outpatient) of Mr. Sebastian Diego, a 77-year-old, right-handed, White, gentleman who was referred for this evaluation by Neurologist, Dr. Mindy Pierce to determine present cognitive functioning in the context of declining cognitive and daily functioning. He is referred with other specified mental disorders due to known physiological condition; memory impairment. HISTORY OF PRESENTING PROBLEM: Mr. Diego presents to the current evaluation on time and accompanied by his son, Mr. Tristin Diego; both are believed to be accurate historians. Additionally, a clinic record from the referring provider dated 04/17/2022 was also consulted. According to that record, Mr. Diego was seen in the context of gradually progressive cognitive impairment. The record indicates Mr. Diego has been having issues with memory and forgetfulness for more than 2 years including problems with recalling words and repeating questions. The record also notes increasing agitation and irritability, as well as concern for driving. The record indicates Mr. Diego could not complete the MoCA testing due to irritability and argumentativeness. The record indicates poor insight into cognitive situation. 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 Mr. Diego's son notes he has medical and financial POA and believes his father would be unable to manage his affairs independently. He notes that his father initially saw a neurologist several years ago when he was suspected to have sustained possible a stroke. He adds he was informed that dementia is starting. He notes that they then sought a second neurologist???s opinion who concurred with possible dementia and reportedly recommended no driving. Mr. 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 He notes I will not let him drive or have his guns back. From a cognitive perspective, Mr. Diego's son indicates his father struggles with recall of conversations and repeats himself regularly. He also notes that he regularly mixes up words, particularly in the evenings. He adds that he has been concerned about his father's safety for years and notes that he is in the process of acquiring a home-health aide to provide assistance with his father???s day-to-day living, including medication management. Presently, Mr. Diego indicates memory difficulties that he attributes to age. He does indicate difficulty recalling the names of people that he knows. He notes that he feels good and does not have any significant difficulties with day-to-day functioning. He adds that his driving has been suspended. He reports an instance about 3-4 years ago when he was ???intoxicated??? and had what he described as a possible seizure. His son indicates he was taken to the hospital and had reportedly sustained ???mini strokes,??? and was positive for UTI. CURRENT MEDICATIONS: Mr. Diego notes he takes about 10 medications, 1 of which is a blood thinner. He was unable to provide additional information but does indicate that he did not take his medications on the night previous to this evaluation. His son also notes that when he arrived at his father???s residence on the morning of the evaluation, his father???s medications remained in the pillbox. Medications according to referral records indicate: Clopidogrel, duloxetine, ibuprofen, levothyroxine, lisinopril, memantine, metformin, potassium chloride, pregabalin, tamsulosin, and vitamin D3. DEVELOPMENTAL/MEDICAL HISTORY: Mr. Diego notes he experienced blood poisoning about 10 years ago that resulted in bilateral leg amputations. His son elaborates and notes that he had aneurysms in both knees. Medical history according to referral records indicate the following: Back pain, bilirubinemia, coronary artery disease, dementia, depression, disease of the thyroid gland, elevated parathy (more content not included)...[facility]03-20-2023 [id number] Sebastian Diego Cindi 1945 M Date Provider Department Center 07/21/2022 [facility] No [facility] history [facility] Hospital Discharge instructions Patient Education 10/29/2021 11:03:50 Hematuria, Adult Hematuria, Adult Hematuria is blood in the urine. Blood may be visible in the urine, or it may be identified with a test. This condition can be caused by infections of the bladder, urethra, kidney, or prostate. Otherpossible causes include: Kidney stones. Cancer of the urinary tract. Too much calcium in the urine. Conditions that are passed from parent to child (inherited conditions). Exercise that requires a lot of energy. Infections can usually be treated with medicine, and a kidney stone usually will pass through your urine. If neither of these is the cause of your hematuria, more tests may be needed to identify the cause of your symptoms. It is very important to tell your health care provider about any blood in your urine, even if it ispainless or the blood stops without treatment. Blood in the urine, when it happens and then stops and then happens again, can be a symptom of a very serious condition, including cancer. There is no pain in the initial stages of many urinary cancers. Follow these instructions at home: Medicines Take [id number] and prescription medicines only as told by your health care provider. If you were prescribed an antibiotic medicine, take it as told by your health care provider. Do notstop taking the antibiotic even if you start to feel better. Eating and drinking Drink enough fluid to keep your urine clear or pale yellow. It is recommended that you drink 3 4 quarts (2.8 3.8 L) a day. If you have been diagnosed with an infection, it is recommended that you drink cranberry juice in addition to large amounts of water. Avoid caffeine, tea, and carbonated beverages. These tend to irritate the bladder. Avoid alcohol because it may irritate the prostate (men). General instructions If you have been diagnosed with a kidney stone, follow your health care provider's instructions about straining your urine to catch the stone. Empty your bladder often. Avoid holding urine for long periods of time. If you are female: ?After a bowel movement, wipe from front to back and use each piece of toilet paper only once. ?Empty your bladder before and after sex. Pay attention to any changes in your symptoms. Tell your health care provider about any changes or any new symptoms. It is your responsibility to get your test results. Ask your health care provider, or the department performing the test, when your results will be ready. Keep all follow-up visits as told by your health care provider. This is important. Contact a health care provider if: You develop back pain. You have a fever. You have nausea or vomiting. Your symptoms do not improve after 3 days. Your symptoms get worse. Get help right away if: You develop severe vomiting and are unable take medicine without vomiting. You develop severe pain in your back or abdomen even though you are taking medicine. You pass a large amount of blood in your urine. You pass blood clots in your urine. You feel very weak or like you might faint. You faint. Summary Hematuria is blood in the urine. It has many possible causes. It is very important that you tell your health care provider about any blood in your urine, even ifit is painless or the blood stops without treatment. Take opqa-abb-hawbnrs and prescription medicines only as told by your health care provider. Drink enough fluid to keep your urine clear or pale yellow. This information is not intended to replace advice given to you by your health care provider. Make sure you discuss any questions you have with your health care provider. Document Released: 04/20/2006 Document Revised: 09/14/2019 Document Reviewed: 05/23/2017 [employer] 2020 [employer]. Follow Up Care 04/25/2021 09:31:27 With:Mady Kramer Jr., MD, URO Address: [facility] [address] [place] [address]- [phone] When:10/29/2022 Comments:LEI YEPEZ [facility] evaluation + Plan note Future Appointments Appointment Date:11/11/2022 11:15:00 AM Scheduled Provider:Mady Kramer Jr., MD Location:[facility] Appointment Type:URO Office Visit Diagnostic Tests Pending * PSA Total 10/29/21 [facility] evaluation + Plan note Future Appointments Appointment Date:04/17/2023 09:30:00 AM Scheduled Provider:Sancho LEE MD Location:[facility] Appointment Type:URO Office Visit [facility] Evaluation + Plan note Future Appointments Appointment Date:06/19/2023 11:15:00 AM Scheduled Provider:Sancho LEE MD Location:[facility] Appointment Type:URO Office Visit [facility] evaluofkzm noteNo assessment information available [facility] Work Phone: evalunhgeb noteNo InformationN[employer] Other Evaluation note* Diagnosis Onset Date Resolution Status Femoral artery aneurysm, right acute [facility] Work Phone: Hisvxdx general Narrative - Reported* Type Description Date Medical History HTN Medical History CVA in 1994 Medical History JA Medical History Mini Strokes 2018 Medical History Leg amputations bilateral 013 Medical History CAD Medical History TIA Medical History Hypothyroidism Medical History Vitamin B 12 deficiency Surgical History aneurysms in legs; stents place d Surgical History above knee Amputation 04/2012 R ight Surgical History above knee Amputation 07/2012 Le ft Surgical History multiple knee surgeries Surgical History eye surgery 2010 Surgical History tonsillectomy Hospitalization History SEE ABOVE SURGERIES Hospitalization History Confusion/ [facility] [employer] Other Hospital course Narrative No data available for this section [facility] Hospital Discharge instructions No data available for this section [facility] Hospital Discharge instructions Additional Instructions Continue rest ice elevate Tylenol 650 mg to 1000 mg every 4 hours for pain Wear the wrist splint as needed for comfort stability Follow-up with your family doctor for recheck Return to the ER for worsening pain loss of circulation in your fingers fever chills or any other [facility] Work Phone: Hospital Discharge instructions Additional Instructions May shower. Do not soak in bathtub. Keep Prevena dressing in place x 7 days. Then remove entire dressing and discard. After that, wash daily with mild soap and water, pat dry, apply clean dry dressing.[facility] Work Phone: Progress note No data available for this section [facility] Summary Purpose Family History No Family History Records Found Relationship Condition Age at Onset Recorded Date/T samara Not Specified Myocardial infarction Unknown brother Chronic obstructive pulmonary disease Unk nown Advance Directives No Advanced Directives Records Found Advance Directive Response Recorded Date/ Time Advance Directives No November 30 7:37am Advance Directive Response Recorded Date/ Time Advance Directives No November 30 6:37am Chief Complaint and Reason for Visit Chief Complaint n40.1 r31.21 r97.20 Chief Complaint n40.1 r31.21 r97.20 r femoral artrey aneurysm Chief Complaint n40.1 r31.21 r97.20 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 Chief Complaint n40.1 r31.21 r97.20 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 Z01.818 I71.40 H43.813 R04.31 Chief Complaint n40.1 r31.21 r97.20 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 Z01.818 I71.40 H43.813 R04.31 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 Chief Complaint n40.1 r31.21 r97.20 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 Z01.818 I71.40 H43.813 R04.31 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 Reason for Visit Femoral artery aneur ysm, right Additional Source Comments Care Team (unrecognized sect ion and content) Team Status: Active Member Role Status Dates Carmelita Zavala Primary Care Provider Active Team Status: Inactive Member Role Status Dates Sancho Lee MD Attending Provider Active Carmelita J Lucas Primary Care Provider Active Team Status: Inactive Member Role Status Dates Carmelita Arita Joseayoneli Primary Care Provider Active Sancho Lee MD Attending Provider Active Team Status: Inactive Member Role Status Dates Carmelita Arita Lucas Primary Care Provider Active Linda Rodriguez MD Attending Provider Active Team Status: Inactive Member Role Status Dates Carmelita Arita Joseayoneli Primary Care Provider Active Glo Singleton MD Attending Provider, Referring Provi rylee Active Team Status: Inactive Member Role Status Dates Carmelita Arita Joseayoneli Primary Care Provider Active Mary Carey [facility] Emergency Provider Active Team Status: Inactive Member Role Status Dates Carmelita J Lucas Primary Care Provider Active Linda Rodriguez MD Admit Provider, Attending Pr ovider Active (unrecognized sect ion and content) No Status Records FoundNo Status Records FoundNo Status Records FoundNo Status Records Found INFORMATION SOURCE (unrecogn ized section and content) DATE CREATED AUTHOR 08/19/2022 [facility] DATE CREATED AUTHOR AUTHOR'S ORGANIZ ATION 08/28/2022 [facility] DATE CREATED AUTHOR AUTHOR'S ORGANIZ ATION 04/30/2023 [facility] DATE CREATED AUTHOR AUTHOR'S ORGANIZ ATION 06/02/2023 [facility] Goals (unrecognized section and content) Goals may be documented in a n alternate section REASON FOR VISIT (unrecogniz ed section and content) NEW PATIENT REF BY DR. DESIR S FOR FEMORAL ARTERY ANEURYSMGO OVER CT SCAN AND U/S 930ACardiac Clearance AAA Dr. Rodriguezsurgery clearanceNo Informationsurgery questions3-week follow-up femoral aneurysm repairWOUND CHECKPLAVIX AND ASA FOR RECORDS PERTAINING TO PATIENTS WHO ARE OR HAVE BEEN ENROLLED IN A CHEMICAL DEPENDENCY/SUBSTANCEABUSE PROGRAM, SOME INFORMATION MAY BE OMITTED. This clinical summary was aggregated from multiple sources. Caution should be exercised in using it in the provision of clinical care. This summary normalizes information from multiple sources, and as a consequence, information in this document may materially change the coding, format and clinical context of patient data. In addition, data may be omitted in some cases. CLINICAL DECISIONS SHOULD BE BASED ON THE PRIMARY CLINICAL RECORDS. [facility] provides no warranty or guarantee of the accuracy or completeness of information in this document.
[2023-06-08 19:16] LABS: Estimated GFR (African America >60 (>=60); Estimated GFR (Non-African Ame 50 (>=60)
[2023-06-08 19:37] LABS: Gentamicin Trough 7.3 ug/mL (<=2.0)
== END 2023-06-08 16:53 | disposition home or self-care (01) ==
LOC: LAB 16:52
PROVIDERS: PCP Nurse Practitioner; Visit Provider Nurse Practitioner Family
DX: Z01.812 Encounter for preprocedural laboratory examination (principal)
CPT/HCPCS: 36415; 80170; 82565; 84520

== ENCOUNTER 2023-06-09 11:49 | Outpatient (REF) | payer MEDICARE, SELFPAY ==
--- OUTSIDE RECORDS SUMMARY | 2023-06-09 12:00 | XMS_ITS | CCD ---
Author Name Unknown Address [address] [place] [address] Organization [facility] Care Team Providers Care Customer Service Teller Name Role Phone CARMELITA ZAVALA Primary Care Physician LINDA WORKMAN Attending Unavailable ANABELA, MINDY Referring Unavailable AICHHOLZ, PHYSICAL EDUCATION INSTRUCTOR CARMELITA Primary Care Unavailable HOY ., DR HOWARD Admitting Unavailable HOY ., DR HOWARD Attending Unavailable HOY ., DR HOWARD Consulting Unavailable ANIKA CURTIS Consulting Unavailable ALKA MORENO Consulting Unavailable CARMEN MURDOCK Consulting Unavailable AD, UJLEE Consulting Unavailable AICHHOLZ, PHYSICAL EDUCATION INSTRUCTOR CARMELITA Admitting Unavailable AICHHOLZ, PHYSICAL EDUCATION INSTRUCTOR CARMELITA Attending Unavailable AICHHOLZ, PHYSICAL EDUCATION INSTRUCTOR CARMELITA Primary Care Unavailable AICHHOLZ, PHYSICAL EDUCATION INSTRUCTOR CARMELITA Consulting Unavailable AICHHOLZ, PHYSICAL EDUCATION INSTRUCTOR CARMELITA Admitting Unavailable AICHHOLZ, PHYSICAL EDUCATION INSTRUCTOR CARMELITA Attending Unavailable AICHHOLZ, PHYSICAL EDUCATION INSTRUCTOR CARMELITA Primary Care Unavailable AICHHOLZ, PHYSICAL EDUCATION INSTRUCTOR CARMELITA Consulting Unavailable AICHHOLZ, PHYSICAL EDUCATION INSTRUCTOR CARMELITA Admitting Unavailable AICHHOLZ, PHYSICAL EDUCATION INSTRUCTOR CARMELITA Attending Unavailable AICHHOLZ, PHYSICAL EDUCATION INSTRUCTOR CARMELITA Primary Care Unavailable AICHHOLZ, PHYSICAL EDUCATION INSTRUCTOR CARMELITA Consulting Unavailable WILLIAMS Arboleda, DR MADY Liao Admitting Unavaila asim Arboleda, DR MADY Liao Attending Unavaila ble AICHHOLZ, PHYSICAL EDUCATION INSTRUCTOR CARMELITA Primary Care Unavailable Deandre Min Consulting Unavailable DR MADY CAGLE JR Consulting Unavaila ble AICHHOLZ, PHYSICAL EDUCATION INSTRUCTOR CARMELITA Admitting Unavailable AICHHOLZ, PHYSICAL EDUCATION INSTRUCTOR CARMELITA Attending Unavailable AICHHOLZ, PHYSICAL EDUCATION INSTRUCTOR CARMELITA Primary Care Unavailable DR CAROLINE BLOUNT V Consulting Unavailable AICHHOLZ, PHYSICAL EDUCATION INSTRUCTOR CARMELITA Consulting Unavailable AICHHOLZ, PHYSICAL EDUCATION INSTRUCTOR CARMELITA Admitting Unavailable AICHHOLZ, PHYSICAL EDUCATION INSTRUCTOR CARMELITA Attending Unavailable AICHHOLZ, PHYSICAL EDUCATION INSTRUCTOR CARMELITA Primary Care Unavailable AICHHOLZ, TATYANA CARMELITA Consulting Unavailable MD Sancho Lee Attending Provider Carmelita Zavala Primary Care Provider [phone] Linda Rodriguez Unavailable [phone] Carmelita Zavala Primary Care Provider MD Sancho Lee Attending Provider MD Linda Rodriguez Attending Provider Carmelita Zavala Primary Care Provider [phone] MD Sancho Lee Attending Provider MD Linda Rodriguez Attending Provider Glo Singleton Unavailable MD Glo Singleton Attending Provider MD Glo Singleton Referring Provider Cherry, STUMMEL SELECTOR-BC Mary Miller Emergency Provider MD Linda Rodriguez Admit Provider Linda Rodriguez [...] (disorder), Dizziness (finding) [facility] (1 source) ALLERGIES NOT ON FILE; Translations: [ALLERGIES NOT ON FILE] Propensity to adverse reactions (disorder) [facility] (1 source) Adrenergic Beta-Antagonist s Drug allergy (disorder) 4 [facility] (7 sources) Beta-Blockers (Beta-Adrenergi c Bloc; Translations: [Beta-Blockers (Beta-Adrenergi c Bloc] Allergy to substance 3 Headache [facility] (9 sources) Adrenergic Beta-Antagonist s Propensity to adverse reactions vomiting [facility] Other (6 sources) Iodinated Contrast Media; Translations: [Iodinated Contrast Media] Allergy to substance 3 Difficulty Swallowing [facility] (7 sources) Contrast Allergy PreMed Pack Drug allergy Unknown [facility] Other Medications Current Medications Medication Drug Class(es) [...] # 42 cap(s), Refills(s) 0, Pharmacy: [id number], 177.8, cm, 04/18/21 10:33:00 EST, Height/Length Dosing, [...] QID, # 20 tab(s), Refills(s) 0, Pharmacy: [address], 177.8, cm, 04/18/21 10:33:00 EST, Height/Length [...] hydrochloride 10 mg oral tablet (1 source) N-wapltm-C-aspartate Receptor Antagonist Start: 03-21-2021 take 1 tablet [...] 2023 12:00am Start: 09-22-2022 Potassium Chlo ride (Rpm-Xuuj-Ztv 10) 10 mEq oral tablet, extended release [...] # 90 cap(s), Refills(s) 3, Pharmacy: [facility], 177.8, cm, 04/18/21 10:33:00 EST, Height/Length [...] disease (1 source) Atherosclerotic heart disease of [place] coronary artery without angina pectoris; Translations: [ASHD [place] W/O ANGINA PECTORIS] Onset: 01-17-2022 Chronic [...] Onset: 01-17-2022 Episodic Other aftercare (1 source) [facility] (current) use of aspirin; Translations: [RESIDENTIAL CURRENT USE OF ASPIRIN] Onset: 01-17-2022 Episodic Other aftercare (1 source) Other parts counterman (current) drug therapy; Translations: [OTH RESIDENTIAL CURRENT DRUG THERAPY] Onset: 01-17-2022 Episodic Other [...] for Procedure/Surger yon 06-01-2023 Consent for Procedure/Surgery [id number] #1.00TIFF [facility] Operative Reporton Operative Report [id number]# 1.00TIFF [facility] Glucose Glucometer (BldC) [M ass/Vol]Ordered By: Linda Rodriguez on 04-24-2023 Glucose [Mass/Vol] 102 mg/dL [facility] Comment on above: Random Glucose Refer ence Range is dependent on time and content of last meal. Glucose of more than 200 mg/dL in a nonstressed, ambulatory subject supports the diagnosis of Diabetes Mellitus. Glucose Poct Glucometerson 1 06-25-2022 Commemt1 Glu2: Cleaned Meter Normal [facility] Comment on above: Result Comment: PERF ORMED BY: [place] [address] PATHOLOGIST RESEARCH KENNEL SUPERVISOR NOAH PINEDA M.D. Performed By: #### G LULS #### Point of Care testing , Glucose [Mass/Vol] 102 mg/dL Normal [facility] Comment on above: Result Comment: [place] [facility] Glucose Reference Range is dependent on time and content of last meal. Glucose of more than 200 mg/dL in a nonstressed, ambulatory subject supports the diagnosis of Diabetes Mellitus. Performed By: #### G LULS #### Point of Care testing , No Panel InformationOrdered By: Linda Rodriguez on 04-24-2023 Bedside Glucose Comment Glu2: cleaned meter [facility] Glucose Poct Glucometerson 1 06-24-2022 Glucose [Mass/Vol] 118 mg/dL Normal [facility] Comment on above: Result Comment: [place] Glucose Reference Range is dependent on time and content of last meal. Glucose of more than 200 mg/dL in a nonstressed, ambulatory subject supports the diagnosis of Diabetes Mellitus. PERFORMED BY: [place] [address] PATHOLOGIST RESEARCH KENNEL SUPERVISOR NOAH PINEDA M.D. Performed By: #### I SCRE #### [facility] [address] [place] [address] [place] Commemt1 Glu2: Cleaned Meter [facility] Comment on above: Result Comment: PERF ORMED BY: [place] [address] PATHOLOGIST RESEARCH KENNEL SUPERVISOR NOAH PINEDA M.D. Performed By: #### I SCRE #### [facility] [address] [place] [address] Glucose [Mass/Vol] 77 mg/dL Normal [facility] Comment on above: Result Comment: [place] Glucose Reference Range is dependent on time and content of last meal. Glucose of more than 200 mg/dL in a nonstressed, ambulatory subject supports the diagnosis of Diabetes Mellitus. Performed By: #### I SCRE #### [address] Glucose Poct Glucometerson 1 06-23-2022 Glucose [Mass/Vol] 65 mg/dL Normal [facility] Comment on above: Result Comment: [facility] Glucose Reference Range is dependent on time and content of last meal. Glucose of more than 200 mg/dL in a nonstressed, ambulatory subject supports the diagnosis of Diabetes Mellitus. PERFORMED BY: [place] [address] PATHOLOGIST RESEARCH KENNEL SUPERVISOR NOAH PINEDA M.D. Performed By: #### G LULS #### Point of Care testing , Commemt1 Glu2: Cleaned Meter Normal [facility] Comment on above: Result Comment: PERF ORMED BY: [place] [address] PATHOLOGIST RESEARCH KENNEL SUPERVISOR NOAH PINEDA M.D. Performed By: #### C MP, CBC #### [address] Glucose [Mass/Vol] 81 mg/dL Normal [facility] Comment on above: Result Comment: [facility] Glucose Reference Range is dependent on time and content of last meal. Glucose of more than 200 mg/dL in a nonstressed, ambulatory subject supports the diagnosis of Diabetes Mellitus. Performed By: #### C MP, CBC #### [address] Basic Metabolic Panelon 12-1 Anion gap [Moles/Vol] Not performed Normal 6.0-15.0 [facility] Comment on above: Performed By: #### C MP, CBC #### [place] [address] [place] Calcium [Mass/Vol] 8.0 mg/dL Low 8.6-10.3 [facility] Comment on above: Performed By: #### C MP, CBC #### [place] [address] [place] Chloride [Moles/Vol] 106 mmol/L Normal 98-107 [facility] Comment on above: Performed By: #### C MP, CBC #### [facility] [address] CO2 [Moles/Vol] 24.7 mmol/L Normal 21.0-31.0 [facility] Comment on above: Performed By: #### C MP, CBC #### [facility] [address] Creatinine [Mass/Vol] 1.06 mg/dL Normal 0.70-1.30 [facility] Comment on above: Performed By: #### C MP, CBC #### [facility] [address] [place] [address] [place] Creatinine Clr Calc Pharmacy 54.[address] [facility] Comment on above: Result Comment: PERF ORMED BY: [place] [address] PATHOLOGIST RESEARCH KENNEL SUPERVISOR NOAH PINEDA M.D. Performed By: #### C MP, CBC #### [place] [address] [place] GFR/1.73 sq M.predicted MDRD (S/P/Bld) [Vol rate/Area] mL/min/{1.73_m2} [facility] Comment on above: Performed By: #### C MP, CBC #### [facility] [address] [place] [address] [place] Glucose [Mass/Vol] 130 mg/dL High 70-100 [facility] Comment on above: Result Comment: [place] Glucose Reference Range is dependent on time and content of last meal. Glucose of more than 200 mg/dL in a nonstressed, ambulatory subject supports the diagnosis of Diabetes Mellitus. ADA recommended reference range Performed By: #### C MP, CBC #### [facility] [address] [place] [address] [place] Potassium Normal 3.5-5.1 [facility] Comment on above: Result Comment: Spec imen hemolyzed, redraw requested Performed By: #### C MP, CBC #### [facility] [address] [place] [address] [place] Sodium [Moles/Vol] 137 mmol/L Normal 136-145 [facility] Comment on above: Performed By: #### C MP, CBC #### [facility] [address] Urea nitrogen [Mass/Vol] 19 mg/dL Normal 7-25 [facility] Comment on above: Performed By: #### C MP, CBC #### [facility] [address] Basophils Auto (Bld) [#/Vol] Ordered By: Linda Rodriguez on 04-21-2023 Basophils (Bld) [#/Vol] 0.0 10*3/uL 0.0-0.2 [facility] Basophils/100 WBC Auto (Bld) Ordered By: Linda Rodriguez on 04-21-2023 Basophils/100 WBC (Bld) 0.2 % . F [facility] Calcium [Mass/volume] in Ser um or PlasmaOrdered By: Linda Rodriguez on 04-21-2023 Calcium [Mass/Vol] 8.0 mg/dL 8.6-10.3 [facility] Carbon dioxide, total [Moles /volume] in Serum or PlasmaOrdered By: Linda Rodriguez on 04-21-2023 CO2 [Moles/Vol] 24.7 mmol/L 21.0-31.0 [facility] Chloride [Moles/volume] in S colleen or PlasmaOrdered By: Linda Rodriguez on 04-21-2023 Chloride [Moles/Vol] 106 mmol/L 98-107 [facility] Complete Blood Count Auto Di ffon 04-21-2023 Basophils (Bld) [#/Vol] 0.0 10*3/uL Normal 0.0-0.2 [facility] Comment on above: Result Comment: PERF ORMED BY: [place] [address] PATHOLOGIST RESEARCH KENNEL SUPERVISOR NOAH PINEDA M.D. Performed By: #### C MP, CBC #### [facility] [address] Basophils/100 WBC (Bld) 0.2 % Normal . F [facility] Comment on above: Performed By: #### C MP, CBC #### [facility] [address] [place] [address] [place] Eosinophils (Bld) [#/Vol] 0.0 10*3/uL Normal 0.0-0.45 [facility] Comment on above: Performed By: #### C MP, CBC #### [facility] [address] [place] [address] [place] Eosinophils/100 WBC (Bld) 0.0 % Normal . [facility] Comment on above: Performed By: #### C MP, CBC #### [facility] [address] Erythrocyte distribution width (RBC) [Ratio] 13.8 % Normal 12.0-14.8 [facility] Comment on above: Performed By: #### C MP, CBC #### [facility] [address] Hematocrit (Bld) [Volume fraction] 31.7 % Low 38.8-50.0 [facility] Comment on above: Performed By: #### C MP, CBC #### [facility] [address] [place] [address] [place] Hemoglobin (Bld) [Mass/Vol] 10.6 g/dL Low 13.0-17.0 [facility] Comment on above: Performed By: #### C MP, CBC #### [facility] [address] [place] [address] [place] Lymphocytes (Bld) [#/Vol] 0.7 10*3/uL Low 1.00-4.8 [facility] Comment on above: Performed By: #### C MP, CBC #### [facility] [address] [place] [address] [place] Lymphocytes/100 WBC (Bld) 3.9 % Normal . [facility] Comment on above: Performed By: #### C MP, CBC #### [facility] [address] MCH (RBC) [Entitic mass] 31.1 pg Normal 27.5-35.2 [facility] Comment on above: Performed By: #### C MP, CBC #### [facility] [address] MCV (RBC) [Entitic vol] 92.8 fL Normal 83.5-101 F [facility] Comment on above: Performed By: #### C MP, CBC #### [facility] [address] Mean Corpuscular HGB Conc 33.5 g/dL Normal 32.5-35.6 [facility] Comment on above: Performed By: #### C MP, CBC #### [facility] [address] [place] [address] [place] Monocytes (Bld) [#/Vol] 0.8 10*3/uL Normal 0.0-0.8 [facility] Comment on above: Performed By: #### C MP, CBC #### [facility] [address] [place] [address] [place] Monocytes/100 WBC (Bld) 4.6 % Normal . F [facility] Comment on above: Performed By: #### C MP, CBC #### [facility] [address] [place] [address] [place] Neutrophils (Bld) [#/Vol] 16.0 10*3/uL High 1.8-7.7 [facility] Comment on above: Performed By: #### C MP, CBC #### [facility] [address] [place] [address] [place] Neutrophils/100 WBC (Bld) 91.3 % Normal . [facility] Comment on above: Performed By: #### C MP, CBC #### [facility] [address] [place] [address] [place] NRBC% 0.0 /100{WBC} Normal 0-0.5 [facility] Comment on above: Performed By: #### C MP, CBC #### [facility] [address] Platelet mean volume (Bld) [Entitic vol] 8.1 fL Normal 6.6-10.1 [facility] Comment on above: Performed By: #### C MP, CBC #### [facility] [address] [place] [address] [place] Platelets (Bld) [#/Vol] 244 10*3/uL Normal 150-450 [facility] Comment on above: Performed By: #### C MP, CBC #### [facility] [address] RBC (Bld) [#/Vol] 3.41 10*6/uL Low 3.90-5.60 [facility] Comment on above: Performed By: #### C MP, CBC #### [facility] [address] WBC (Bld) [#/Vol] 17.5 10*3/uL High 4.1-10.5 [facility] Comment on above: Performed By: #### C MP, CBC #### [facility] [address] Creatinine [Mass/volume] in Serum or PlasmaOrdered By: Linda Rodriguez on 04-21-2023 Creatinine [Mass/Vol] 1.06 mg/dL 0.70-1.30 [facility] Eosinophils Auto (Bld) [#/Vo l]Ordered By: Linda Rodriguez on 04-21-2023 Eosinophils (Bld) [#/Vol] 0.0 10*3/uL 0.0-0.45 [facility] Eosinophils/100 WBC Auto (Bl d)Ordered By: Linda Rodriguez on 04-21-2023 Eosinophils/100 WBC (Bld) 0.0 % . [facility] Erythrocyte distribution wid th Auto (RBC) [Ratio]Ordered By: Linda Rodriguez on 04-21-2023 Erythrocyte distribution width (RBC) [Ratio] 13.8 % 12.0-14.8 [facility] Glucose [Mass/volume] in Ser um or PlasmaOrdered By: Linda Rodriguez on 04-21-2023 Glucose [Mass/Vol] 130 mg/dL 70-100 [facility] Comment on above: ADA recommended refe rence rangeRandom Glucose Reference Range is dependent on time and content of last meal. Glucose of more than 200 mg/dL in a nonstressed, ambulatory subject supports the diagnosis of Diabetes Mellitus. Hematocrit Auto (Bld) [Volum e fraction]Ordered By: Linda Rodriguez on 04-21-2023 Hematocrit (Bld) [Volume fraction] 31.7 % 38.8-50.0 [facility] Hemoglobin [Mass/volume] in BloodOrdered By: Linda Rodriguez on 04-21-2023 Hemoglobin (Bld) [Mass/Vol] 10.6 g/dL 13.0-17.0 [facility] Leukocytes [#/volume] correc teressa for nucleated erythrocytes in Blood by Automated counOrdered By: Linda Rodriguez on 04-21-2023 WBC corrected for nucl RBC Auto (Bld) [#/Vol] 17.5 10*3/uL 4.1-10.5 [facility] Lymphocytes Auto (Bld) [#/Vo l]Ordered By: Linad Rodriguez on 04-21-2023 Lymphocytes (Bld) [#/Vol] 0.7 10*3/uL 1.00-4.8 [facility] Lymphocytes/100 WBC Auto (Bl d)Ordered By: Linda Rodriguez on 04-21-2023 Lymphocytes/100 WBC (Bld) 3.9 % . [facility] MCH Auto (RBC) [Entitic mass ]Ordered By: Linda Rodriguez on 04-21-2023 MCH (RBC) [Entitic mass] 31.1 pg 27.5-35.2 [facility] MCHC Auto (RBC) [Mass/Vol]Or dered By: iLnda Rodriguez on 04-21-2023 MCHC (RBC) [Mass/Vol] 33.5 g/dL 32.5-35.6 [facility] MCV Auto (RBC) [Entitic vol] Ordered By: Linda Rodriguez on 04-21-2023 MCV (RBC) [Entitic vol] 92.8 fL 83.5-101 F [facility] Monocytes Auto (Bld) [#/Vol] Ordered By: Linda Rodriguez on 04-21-2023 Monocytes (Bld) [#/Vol] 0.8 10*3/uL 0.0-0.8 [facility] Monocytes/100 WBC Auto (Bld) Ordered By: Linda Rodriguez on 04-21-2023 Monocytes/100 WBC (Bld) 4.6 % . F [facility] Neutrophils Auto (Bld) [#/Vo l]Ordered By: Linda Rodriguez on 04-21-2023 Neutrophils (Bld) [#/Vol] 16.0 10*3/uL 1.8-7.7 [facility] Neutrophils/100 WBC Auto (Bl d)Ordered By: Linda Rodriguez on 04-21-2023 Neutrophils/100 WBC (Bld) 91.3 % . [facility] No Panel InformationOrdered By: Linda Rodriguez on 04-21-2023 Estimated GFR (CKD-EPI) > 60.0 mL/Min [facility] Creatinine Clearance (Chem 54.31 [facility] Nucleated erythrocytes [Pres ence] in Blood by Automated countOrdered By: Lnida Rodriguez on 04-21-2023 Nucleated RBC Auto Ql (Bld) 0.0 /100{WBC} 0-0.5 [facility] Platelet mean volume Auto (B ld) [Entitic vol]Ordered By: Linda Rodriguez on 04-21-2023 Platelet mean volume (Bld) [Entitic vol] 8.1 fL 6.6-10.1 [facility] Platelets Auto (Bld) [#/Vol] Ordered By: Linda Rodriguez on 04-21-2023 Platelets (Bld) [#/Vol] 244 10*3/uL 150-450 [facility] Potassium [Moles/volume] in Serum or PlasmaOrdered By: Linda Rodriguez on 04-21-2023 Potassium [Moles/Vol] 4.0 mmol/L 3.5-5.1 [facility] RBC Auto (Bld) [#/Vol]Ordere d By: Linda Rodriguez on 04-21-2023 RBC (Bld) [#/Vol] 3.41 10*6/uL 3.90-5.60 [facility] Redraw Potassiumon Potassium [Moles/Vol] 4.0 mmol/L Normal 3.5-5.1 [facility] Comment on above: Order Comment: SPECI MEN HEMOLYZED. NOTIFIED TROY. Result Comment: PERF ORMED BY: [facility] [address] [place] [address] PATHOLOGIST RESEARCH KENNEL SUPERVISOR NOAH PINEDA M.D. Performed By: #### C MP, CBC #### [facility] [address] Serum or plasma anion gap de terminationOrdered By: Linda Rodriguez on 04-21-2023 Anion gap [Moles/Vol] TNP [facility] Comment on above: Test not performed Sodium [Moles/volume] in Ser um or PlasmaOrdered By: Linda Rodriguez on 04-21-2023 Sodium [Moles/Vol] 137 mmol/L 136-145 [facility] Urea nitrogen [Mass/volume] in Serum or PlasmaOrdered By: Linda Rodriguez on 04-21-2023 Urea nitrogen [Mass/Vol] 19 mg/dL 7-25 [facility] WBC Auto (Bld) [#/Vol]Ordere d By: Linda Rodriguez on 04-21-2023 WBC (Bld) [#/Vol] 17.5 10*3/uL 4.1-10.5 [facility] ABO/Rh Retypeon 04-20-2023 ABO/RH Recheck Result Positive Normal [facility] Comment on above: Order Comment: Pleas e send a phleb per Lori in [place]. MLG Result Comment: PERF ORMED BY: [address] [place] [address] PATHOLOGIST RESEARCH KENNEL SUPERVISOR NOAH PINEDA M.D. Activated Clotting Timeon Activated Clotting Time POC 250 s High 90-139 [facility] Comment on above: Result Comment: Refe rence Range: 90-139 (Non-heparinized) PERFORMED BY: [address] [place] [address] PATHOLOGIST RESEARCH KENNEL SUPERVISOR NOAH PINEDA M.D. Performed By: #### A CT #### [facility] [address] [place], [place] [id number] [facility] Blood activated clotting lynda e by coagulation assayOrdered By: Linda Rodriguez on 04-20-2023 ACT Coag (Bld) 250 s 90-139 [facility] Comment on above: Reference Range: 90- 139 (Non-heparinized) Glucose Poct Glucometerson 1 06-21-2022 Glucose [Mass/Vol] 156 mg/dL Normal [facility] Comment on above: Result Comment: [place] Glucose Reference Range is dependent on time and content of last meal. Glucose of more than 200 mg/dL in a nonstressed, ambulatory subject supports the diagnosis of Diabetes Mellitus. Performed By: #### G LULS #### Point of Care testing , Glucose [Mass/Vol] 154 mg/dL Normal [facility] Comment on above: Result Comment: [place] Glucose Reference Range is dependent on time and content of last meal. Glucose of more than 200 mg/dL in a nonstressed, ambulatory subject supports the diagnosis of Diabetes Mellitus. PERFORMED BY: [place] [address] PATHOLOGIST RESEARCH KENNEL SUPERVISOR NOAH PINEDA M.D. Performed By: #### C MP, CBC #### [address] Commemt1 Glu2: Cleaned Meter Normal [facility] Comment on above: Result Comment: PERF ORMED BY: [place] [address] PATHOLOGIST RESEARCH KENNEL SUPERVISOR NOAH PINEDA M.D. Performed By: #### G LULS #### Point of Care testing , Performed By: #### I SCRE #### [address] Glucose [Mass/Vol] 118 mg/dL Normal [facility] Comment on above: Result Comment: [place] Glucose Reference Range is dependent on time and content of last meal. Glucose of more than 200 mg/dL in a nonstressed, ambulatory subject supports the diagnosis of Diabetes Mellitus. Performed By: #### I SCRE #### [place] [address] [place] Zack 04-20-2023 L Specimen: [id number] Received: 04/20/23 Status: KARIN Ames Num: [id number] Spec Type: Surgical Subm Dr: Linda Rodriguez MD Tissues: A Artery - Aneurysm (RT FEM ART ANERYSM) Procedures: Kathy MCLEAN/Phil L3 Age/ Patient Sex Location Account Attending Physician Sebastian Diego 77/M 4N [id number] Linda Rodriguez MD SPEC NUM: [id number] RECD: 04/20/23 STATUS: KARIN AMES NUM: [id number] ALLISON: 04/20/[address]: Linda Rodriguez MD ENTERED: 04/20/[address] [facility] DR: SPEC TYPE: Surgical DEPT: S ENTERED BY: [id number] RECV BY: [id number] ORDERED: CARIDAD Gross/Micro L3 ORDERED: Kathy MCLEAN/Micro [...] red-brown semisolid material with a laminated appearance.. Senior Tax Analyst sections are submitted in one cassette labeled A1. Microscopic Description One H E slide reviewed. The microscopic examination confirms the diagnosis. CPT Codes 98262 Specimen: [id number] Received: 04/20/23 Status: KARIN Juvencio Num: [id number] Spec Type: Surgical Subm Dr: Linda Rodriguez MD Tissues: A Artery - Aneurysm (RT FEM ART ANERYSM) Procedures: Kathy MCLEAN/Phil L3 Patient: Sebastian Diego [id number] (Continued) Signed (signature on file) Niko Naranjo MD 04/21/232201 [facility] LeukoReduced RBCon LeukoReduced RBC READY [facility] Type and Screenon 04-20-2023 ABO and Rh group Nom (Bld) Blood group O Rh(D) positive [facility] Comment on above: Order Comment: Trans fuse now? N Result Comment: PERF ORMED BY: [facility] [address] [place] [address] PATHOLOGIST RESEARCH KENNEL SUPERVISOR NOAH PINEDA M.D. Ambulatory Visit Summaryon 1 [...] 500 mg Tab) potassium chloride (Potassium Chloride (Imm-Zzqf-Wnp 10) 10 mEq oral tablet, extended release) [...] with JESUS DEAL, ERNA Vidal When: Where: [address] [place] [address]- Medications What How Much When Instructions Unchanged [...] or concerns Unchanged potassium chloride (Potassium Chloride (Ykk-Ntns-Ddp 10) 10 mEq oral tablet, extended release) [...] ? Bladder (more content not included)... Normal [facility] ED Note-Physicianon 04-17-20 ED Note-Physician [id number] 6#1.00TIFF [facility] Patient Educationon 04-17-20 Patient Education Urology Acute [...] these instructions at home: Medicines ? Take sdhx-llm-tyfkcgs and prescription medicines only as told by [...] provider. Document Revised: 01/09/2021 Document Reviewed: 01/09/2021 [employer] Patient Education ? 2022 [employer]. [facility] Urology Office/Clinic Noteon 04-17-2023 Urology Office/Clinic Note [...] & chen inserted. Pt then went to [facility] 04/09/23 due to catheter not draining. PVR 650ml. Catheter was replaced. +C&S 04/09/23 >100k proteus vulgaris & >100k Providencia rettgeri Pt is scheduled this coming up Thursday for surgery for his aneurysm at [facility]. He has also hurt his right wrist. [...] & chen inserted. Pt later presented to [facility] 04/09/23 due to catheter not draining. [...] Contact Information JESUS DEAL, Sancho Narayanan, URL [address] [place], [place] [id number]- Additional Instructions: Prostate bx after aneurysm repair Patient Education Acute Urinary Retention, Male I, Jie Ruiz, personally scribed for Dr. Lee on 04/17/2023 10:26:56. . Documentation recorded by the scribe, Jie Ruiz, accurately reflects the services(s) I performe (more content not included)... Normal [facility] Comment on above: Result Comment: Elec tronically Signed By: Sancho LEE MD\.br\Date and Time Signed: 04/17/23 10:33 EST\.br\Electronically Co-Signed By: Jie Ruiz\.br\Date and Time Co-Signed: 04/17/23 10:27 EST\.br\Electronically Co-Signed By: Jie Ruiz\.br\Date and Time Co-Signed: 04/17/23 10:27 EST\.br\Electronically Co-Signed By: Jie Ruiz\.br\Date and Time Co-Signed: 04/17/23 10:29 EST XR wrist RT min 3V*on 2022 XR wrist RT min 3V* [facility] [place] [address] XRay Report Signed Patient: Sebastian Diego MR#: [id number] : 1945 Acct:[id number] Age/Sex: 77 / M ADM Date: 04/17/23 [...] Hugh Gates M.D.04/17/2023 5:21 PM Dictation Location: [place] [address] Transcribed By: [facility] 04/17/23 172 Dictated By: Hugh Gates DO 04/17/23 1718 Signed By: 04/17/[address] [facility] Lab Reportson 04-14-2023 Lab Reports [id number] #1.00TIFF Normal [facility] Lab Reports [id number] #1.00TIFF Normal [facility] Alanine aminotransferase [En zymatic activity/volume] in Serum or PlasmaOrdered By: Linda Rodriguez on 04-13-2023 ALT [Catalytic activity/Vol] 8 U/L 7-52 [facility] Albumin [Mass/volume] in Ser um or Plasma by Bromocresol green (BCG) dye binding methoOrdered By: Linda Rodriguez on 04-13-2023 Albumin BCG dye [Mass/Vol] 3.4 g/dL 3.5-5.7 [facility] Alkaline phosphatase [Enzyma tic activity/volume] in Serum or PlasmaOrdered By: Linda Rodriguez on 04-13-2023 ALP [Catalytic activity/Vol] 152 U/L 34-104 [facility] Aspartate aminotransferase [ Enzymatic activity/volume] in Serum or PlasmaOrdered By: Linda Rodriguez on 04-13-2023 AST [Catalytic activity/Vol] 13 U/L 13-39 [facility] Automated erythrocytes count in urine sediment (number/area)Ordered By: Linda Rodriguez on 04-13-2023 RBC Auto (Urine sed) [#/Area] 5-9 [HPF] 0-4 [facility] Automated leukocytes count i n urine sediment (number/area)Ordered By: Linda Rodriguez on 04-13-2023 WBC Auto (Urine sed) [#/Area] Innumerable [HPF] 0-4 [facility] Basophils Auto (Bld) [#/Vol] Ordered By: Linda Rodriguez on 04-13-2023 Basophils (Bld) [#/Vol] 0.1 10*3/uL 0.0-0.2 [facility] Basophils/100 WBC Auto (Bld) Ordered By: Linda Rodriguez on 04-13-2023 Basophils/100 WBC (Bld) 0.9 % . [facility] Bilirubin Test strip Ql (U)O rdered By: Linda Rodriguez on 04-13-2023 Bilirubin Ql (U) Negative Negative [facility] Bilirubin.total [Mass/volume ] in Serum or PlasmaOrdered By: Linda Rodriguez on 04-13-2023 Bilirubin [Mass/Vol] 1.0 mg/dL 0.3-1.0 [facility] Calcium [Mass/volume] in Ser um or PlasmaOrdered By: Linda Rodriguez on 04-13-2023 Calcium [Mass/Vol] 8.9 mg/dL 8.6-10.3 [facility] Carbon dioxide, total [Moles /volume] in Serum or PlasmaOrdered By: Linda Rodriguez on 04-13-2023 CO2 [Moles/Vol] 28.7 mmol/L 21.0-31.0 [facility] Chloride [Moles/volume] in S colleen or PlasmaOrdered By: Linda Rodriguez on 04-13-2023 Chloride [Moles/Vol] 106 mmol/L 98-107 [facility] Color Auto (U)Ordered By: Brian Rodriguez on 04-13-2023 Color (U) Yellow Yellow [facility] Complete Blood Count Auto Di ffon 04-13-2023 Basophils (Bld) [#/Vol] 0.1 10*3/uL Normal 0.0-0.2 [facility] Comment on above: Result Comment: PERF ORMED BY: [place] [address] PATHOLOGIST RESEARCH KENNEL SUPERVISOR NOAH PINEDA M.D. Performed By: #### C MP, CBC #### [facility] [address] [place] [address] [place] Basophils/100 WBC (Bld) 0.9 % Normal . [facility] Comment on above: Performed By: #### C MP, CBC #### [facility] [address] [place] [address] [place] Eosinophils (Bld) [#/Vol] 0.3 10*3/uL Normal 0.0-0.45 [facility] Comment on above: Performed By: #### C MP, CBC #### [facility] [address] [place] [address] [place] Eosinophils/100 WBC (Bld) 4.9 % Normal . [facility] Comment on above: Performed By: #### C MP, CBC #### [facility] [address] Erythrocyte distribution width (RBC) [Ratio] 13.9 % Normal 12.0-14.8 [facility] Comment on above: Performed By: #### C MP, CBC #### [facility] [address] Hematocrit (Bld) [Volume fraction] 40.7 % Normal 38.8-50.0 [facility] Comment on above: Performed By: #### C MP, CBC #### [facility] [address] Hemoglobin (Bld) [Mass/Vol] 14.1 g/dL Normal 13.0-17.0 [facility] Comment on above: Performed By: #### C MP, CBC #### [address] Lymphocytes (Bld) [#/Vol] 1.4 10*3/uL Normal 1.00-4.8 [facility] Comment on above: Performed By: #### C MP, CBC #### [address] Lymphocytes/100 WBC (Bld) 19.8 % Normal . [facility] Comment on above: Performed By: #### C MP, CBC #### [address] MCH (RBC) [Entitic mass] 32.0 pg Normal 27.5-35.2 [facility] Comment on above: Performed By: #### C MP, CBC #### [facility] [address] MCV (RBC) [Entitic vol] 92.2 fL Normal 83.5-101 [facility] Comment on above: Performed By: #### C MP, CBC #### [address] Mean Corpuscular HGB Conc 34.7 g/dL Normal 32.5-35.6 [facility] Comment on above: Performed By: #### C MP, CBC #### [facility] [address] [place] [address] [place] Monocytes (Bld) [#/Vol] 0.5 10*3/uL Normal 0.0-0.8 [facility] Comment on above: Performed By: #### C MP, CBC #### [facility] [address] [place] [address] [place] Monocytes/100 WBC (Bld) 7.1 % Normal . [facility] Comment on above: Performed By: #### C MP, CBC #### [facility] [address] [place] [address] [place] Neutrophils (Bld) [#/Vol] 4.7 10*3/uL Normal 1.8-7.7 [facility] Comment on above: Performed By: #### C MP, CBC #### [facility] [address] Neutrophils/100 WBC (Bld) 67.3 % Normal . [facility] Comment on above: Performed By: #### C MP, CBC #### [facility] [address] [place] [address] [place] NRBC% 0.1 /100{WBC} Normal 0-0.5 [facility] Comment on above: Performed By: #### C MP, CBC #### [facility] [address] [place] [address] [place] Platelet mean volume (Bld) [Entitic vol] 8.2 fL Normal 6.6-10.1 [facility] Comment on above: Performed By: #### C MP, CBC #### [facility] [address] [place] [address] [place] Platelets (Bld) [#/Vol] 248 10*3/uL Normal 150-450 [facility] Comment on above: Performed By: #### C MP, CBC #### [facility] [address] [place] [address] [place] RBC (Bld) [#/Vol] 4.41 10*6/uL Normal 3.90-5.60 [facility] Comment on above: Performed By: #### C MP, CBC #### [facility] [address] [place] [address] WBC (Bld) [#/Vol] 6.9 10*3/uL Normal 4.1-10.5 [facility] Comment on above: Performed By: #### C MP, CBC #### [facility] [address] [place] [address] Comprehensive Metabolic Pane zack 04-13-2023 Albumin [Mass/Vol] 3.4 g/dL Low 3.5-5.7 [facility] Comment on above: Performed By: #### C MP, CBC #### [address] Albumin/Globulin [Mass ratio] 1.3 {ratio} Normal [facility] Comment on above: Performed By: #### C MP, CBC #### [address] ALP [Catalytic activity/Vol] 152 U/L High 34-104 [facility] Comment on above: Result Comment: PERF ORMED BY: [place] [address] PATHOLOGIST RESEARCH KENNEL SUPERVISOR NOAH PINEDA M.D. Performed By: #### C MP, CBC #### [address] ALT [Catalytic activity/Vol] 8 U/L Normal 7-52 [facility] Comment on above: Performed By: #### C MP, CBC #### [address] Anion gap [Moles/Vol] 11.4 mmol/L Normal 6.0-15.0 [facility] Comment on above: Performed By: #### C MP, CBC #### [address] AST [Catalytic activity/Vol] 13 U/L Normal 13-39 [facility] Comment on above: Performed By: #### C MP, CBC #### [address] [place] [address] [place] Bilirubin [Mass/Vol] 1.0 mg/dL Normal 0.3-1.0 [facility] Comment on above: Performed By: #### C MP, CBC #### [facility] [address] Calcium [Mass/Vol] 8.9 mg/dL Normal 8.6-10.3 [facility] Comment on above: Performed By: #### C MP, CBC #### [facility] [address] Chloride [Moles/Vol] 106 mmol/L Normal 98-107 [facility] Comment on above: Performed By: #### C MP, CBC #### [facility] [address] CO2 [Moles/Vol] 28.7 mmol/L Normal 21.0-31.0 [facility] Comment on above: Performed By: #### C MP, CBC #### [facility] [address] Creatinine [Mass/Vol] 1.04 mg/dL Normal 0.70-1.30 [facility] Comment on above: Performed By: #### C MP, CBC #### [facility] [address] [place] [address] [place] GFR/1.73 sq M.predicted MDRD (S/P/Bld) [Vol rate/Area] mL/min/{1.73_m2} Normal [facility] Comment on above: Performed By: #### C MP, CBC #### [facility] [address] [place] [address] [place] Globulin (S) [Mass/Vol] 2.7 g/dL Normal [facility] Comment on above: Performed By: #### C MP, CBC #### [facility] [address] [place] [address] [place] Glucose [Mass/Vol] 101 mg/dL High 70-100 [facility] Comment on above: Result Comment: [facility] Glucose Reference Range is dependent on time and content of last meal. Glucose of more than 200 mg/dL in a nonstressed, ambulatory subject supports the diagnosis of Diabetes Mellitus. ADA recommended reference range Performed By: #### C MP, CBC #### [facility] [address] Potassium [Moles/Vol] 3.1 mmol/L Low 3.5-5.1 [facility] Comment on above: Performed By: #### C MP, CBC #### [facility] [address] [place] [address] [place] Protein [Mass/Vol] 6.1 g/dL Low 6.4-8.9 [facility] Comment on above: Performed By: #### C MP, CBC #### [address] Sodium [Moles/Vol] 143 mmol/L Normal 136-145 [facility] Comment on above: Performed By: #### C MP, CBC #### [facility] [address] [place] [address] [place] Urea nitrogen [Mass/Vol] 13 mg/dL Normal 7-25 [facility] Comment on above: Performed By: #### C MP, CBC #### [place] [address] [place] Creatinine [Mass/volume] in Serum or PlasmaOrdered By: Linda Rodriguez on 04-13-2023 Creatinine [Mass/Vol] 1.04 mg/dL 0.70-1.30 [facility] Dipstick and Microscopicon 1 06-14-2022 Appearance (U) Turbid Critically abnormal Clear [facility] Comment on above: Order Comment: Name Collection Type:: Clean-Voided Midstream Performed By: #### C UU, ADDONUAPLUS #### [facility] [address] [place] [address] [place] Bacteria,Urine 4+ High None Seen [facility] Comment on above: Order Comment: Name Collection Type:: Clean-Voided Midstream Performed By: #### C UU, ADDONUAPLUS #### [place] [address] [place] Bilirubin,Urine Negative Normal Negative [facility] Comment on above: Order Comment: Name Collection Type:: Clean-Voided Midstream Performed By: #### C UU, ADDONUAPLUS #### [facility] [address] [place] [address] [place] Color (U) Yellow Normal Yellow [facility] Comment on above: Order Comment: Name Collection Type:: Clean-Voided Midstream Performed By: #### C UU, ADDONUAPLUS #### [facility] [address] [place] [address] [place] Glucose Ql (U) Normal Normal Normal [facility] Comment on above: Order Comment: Name Collection Type:: Clean-Voided Midstream Performed By: #### C UU, ADDONUAPLUS #### [facility] [address] [place] [address] [place] Hyaline Casts,Urine 0-8 Normal 0-8 [facility] Comment on above: Order Comment: Name Collection Type:: Clean-Voided Midstream Performed By: #### C UU, ADDONUAPLUS #### [facility] [address] [place] [address] [place] Ketones Ql (U) Negative Normal Negative [facility] Comment on above: Order Comment: Name Collection Type:: Clean-Voided Midstream Performed By: #### C UU, ADDONUAPLUS #### [facility] [address] [place] [address] [place] Leukocyte esterase Test strip Ql (U) 4+ High Negative [facility] Comment on above: Order Comment: Name Collection Type:: Clean-Voided Midstream Performed By: #### C UU, ADDONUAPLUS #### [facility] [address] [place] [address] [place] Nitrite,Urine Positive High Negative [facility] Comment on above: Order Comment: Name Collection Type:: Clean-Voided Midstream Performed By: #### C UU, ADDONUAPLUS #### [facility] [address] [place] [address] [place] Occult Blood,Urine 3+ High Negative [facility] Comment on above: Order Comment: Name Collection Type:: Clean-Voided Midstream Result Comment: PERF ORMED BY: [place] [address] PATHOLOGIST RESEARCH KENNEL SUPERVISOR NOAH PINEDA M.D. Performed By: #### C UU, ADDONUAPLUS #### [address] pH (U) [pH] Normal 5.0-9.0 [facility] Comment on above: Order Comment: Name Collection Type:: Clean-Voided Midstream Performed By: #### C UU, ADDONUAPLUS #### [address] Protein (U) [Mass/Vol] 300 mg/dL High Negative [facility] Comment on above: Order Comment: Name Collection Type:: Clean-Voided Midstream Performed By: #### C UU, ADDONUAPLUS #### [facility] [address] [place] [address] RBC,Urine 5-9 High 0-4 [facility] Comment on above: Order Comment: Name Collection Type:: Clean-Voided Midstream Performed By: #### C UU, ADDONUAPLUS #### [address] Specificy [place],Urine 1.018 Normal 1.001-1.030 [facility] Comment on above: Order Comment: Name Collection Type:: Clean-Voided Midstream Performed By: #### C UU, ADDONUAPLUS #### [address] Squamous Epithelial Cell,Urine 0-1 Normal 0-2 [facility] Comment on above: Order Comment: Name Collection Type:: Clean-Voided Midstream Performed By: #### C UU, ADDONUAPLUS #### [address] Triple Phosphate Crystal,Urine 3+ Normal [facility] Comment on above: Order Comment: Name Collection Type:: Clean-Voided Midstream Performed By: #### C UU, ADDONUAPLUS #### [facility] [address] Urobilinogen,Urine Normal Normal Normal [facility] Comment on above: Order Comment: Name Collection Type:: Clean-Voided Midstream Performed By: #### C UU, ADDONUAPLUS #### [facility] [address] WBC,Urine Innumerable High 0-4 [facility] Comment on above: Order Comment: Name Collection Type:: Clean-Voided Midstream Performed By: #### C UU, ADDONUAPLUS #### [facility] [address] [place] [address] Yeast,Urine None Seen Normal None Seen [facility] Comment on above: Order Comment: Name Collection Type:: Clean-Voided Midstream Result Comment: PERF ORMED BY: [place] [address] PATHOLOGIST RESEARCH KENNEL SUPERVISOR NOAH PINEDA M.D. Performed By: #### C UU, ADDONUAPLUS #### [facility] [address] [place] [address] Eosinophils Auto (Bld) [#/Vo l]Ordered By: Linda Rodriguez on 04-13-2023 Eosinophils (Bld) [#/Vol] 0.3 10*3/uL 0.0-0.45 [facility] Eosinophils/100 WBC Auto (Bl d)Ordered By: Linda Rodriguez on 04-13-2023 Eosinophils/100 WBC (Bld) 4.9 % . [facility] Erythrocyte distribution wid th Auto (RBC) [Ratio]Ordered By: Linda Rodriguez on 04-13-2023 Erythrocyte distribution width (RBC) [Ratio] 13.9 % 12.0-14.8 [facility] Globulin Calc (S) [Mass/Vol] Ordered By: Linda Rodriguez on 04-13-2023 Globulin (S) [Mass/Vol] 2.7 g/dL [facility] Glucose [Mass/volume] in Ser um or PlasmaOrdered By: Linda Rodriguez on 04-13-2023 Glucose [Mass/Vol] 101 mg/dL 70-100 [facility] Comment on above: ADA recommended refe rence rangeRandom Glucose Reference Range is dependent on time and content of last meal. Glucose of more than 200 mg/dL in a nonstressed, ambulatory subject supports the diagnosis of Diabetes Mellitus. Hematocrit Auto (Bld) [Volum e fraction]Ordered By: Linda Rodriguez on 04-13-2023 Hematocrit (Bld) [Volume fraction] 40.7 % 38.8-50.0 [facility] Hemoglobin [Mass/volume] in BloodOrdered By: Linda Rodriguez on 04-13-2023 Hemoglobin (Bld) [Mass/Vol] 14.1 g/dL 13.0-17.0 [facility] Ketones Auto test strip (U) [Mass/Vol]Ordered By: Linda Rodriguez on 04-13-2023 Ketones (U) [Mass/Vol] Negative Negative [facility] - UrinalysisOrder ed By: Linda Rodriguez on 04-13-2023 Hyaline casts LM Ql (Urine sed) 0-8 [LPF] 0-8 [facility] Leukocytes [#/volume] correc teressa for nucleated erythrocytes in Blood by Automated counOrdered By: Linda Rodriguez on 04-13-2023 WBC corrected for nucl RBC Auto (Bld) [#/Vol] 6.9 10*3/uL 4.1-10.5 [facility] Lymphocytes Auto (Bld) [#/Vo l]Ordered By: Linda Rodriguez on 04-13-2023 Lymphocytes (Bld) [#/Vol] 1.4 10*3/uL 1.00-4.8 [facility] Lymphocytes/100 WBC Auto (Bl d)Ordered By: Linda Rodriguez on 04-13-2023 Lymphocytes/100 WBC (Bld) 19.8 % . [facility] MCH Auto (RBC) [Entitic mass ]Ordered By: Linda Rodriguez on 04-13-2023 MCH (RBC) [Entitic mass] 32.0 pg 27.5-35.2 [facility] MCHC Auto (RBC) [Mass/Vol]Or dered By: Linda Rodriguez on 04-13-2023 MCHC (RBC) [Mass/Vol] 34.7 g/dL 32.5-35.6 [facility] MCV Auto (RBC) [Entitic vol] Ordered By: Linda Rodriguez on 04-13-2023 MCV (RBC) [Entitic vol] 92.2 fL 83.5-101 F [facility] Magnesium ammonium phosphate crystal detectionOrdered By: Linda Rodriguez on 04-13-2023 Triple phosphate crystals LM Ql (Urine sed) 3+ [HPF] [facility] Monocytes Auto (Bld) [#/Vol] Ordered By: Linda Rodriguez on 04-13-2023 Monocytes (Bld) [#/Vol] 0.5 10*3/uL 0.0-0.8 [facility] Monocytes/100 WBC Auto (Bld) Ordered By: Linda Rodriguez on 04-13-2023 Monocytes/100 WBC (Bld) 7.1 % . [facility] Neutrophils Auto (Bld) [#/Vo l]Ordered By: Linda Rodriguez on 04-13-2023 Neutrophils (Bld) [#/Vol] 4.7 10*3/uL 1.8-7.7 [facility] Neutrophils/100 WBC Auto (Bl d)Ordered By: Linda Rodriguez on 04-13-2023 Neutrophils/100 WBC (Bld) 67.3 % . [facility] Nitrite Test strip Ql (U)Ord ered By: Linda Rodriguez on 04-13-2023 Nitrite Ql (U) Positive Negative [facility] No Panel InformationOrdered By: Linda Rodriguez on 04-13-2023 Estimated GFR (CKD-EPI) > 60.0 mL/Min [facility] Creatinine Clearance (Chem N/A [facility] Nucleated erythrocytes [Pres ence] in Blood by Automated countOrdered By: Linda Rodriguez on 04-13-2023 Nucleated RBC Auto Ql (Bld) 0.1 /100{WBC} 0-0.5 [facility] Platelet mean volume Auto (B ld) [Entitic vol]Ordered By: Linda Rodriguez on 04-13-2023 Platelet mean volume (Bld) [Entitic vol] 8.2 fL 6.6-10.1 [facility] Platelets Auto (Bld) [#/Vol] Ordered By: Linda Rodriguez on 04-13-2023 Platelets (Bld) [#/Vol] 248 10*3/uL 150-450 [facility] Potassium [Moles/volume] in Serum or PlasmaOrdered By: Linda Rodriguez on 04-13-2023 Potassium [Moles/Vol] 3.1 mmol/L 3.5-5.1 [facility] Protein Auto test strip (U) [Mass/Vol]Ordered By: Linda Rodriguez on 04-13-2023 Protein (U) [Mass/Vol] 300 mg/dL Negative [facility] Protein [Mass/volume] in Ser um or PlasmaOrdered By: Linda Rodriguez on 04-13-2023 Protein [Mass/Vol] 6.1 g/dL 6.4-8.9 [facility] RBC Auto (Bld) [#/Vol]Ordere d By: Linda Rodriguez on 04-13-2023 RBC (Bld) [#/Vol] 4.41 10*6/uL 3.90-5.60 [facility] Serum or plasma albumin/glob ulin mass ratioOrdered By: Linda Rodriguez on 04-13-2023 Albumin/Globulin [Mass ratio] 1.3 {ratio} [facility] Serum or plasma anion gap de terminationOrdered By: Linda Rodriguez on 04-13-2023 Anion gap [Moles/Vol] 11.4 mmol/L 6.0-15.0 [facility] Sodium [Moles/volume] in Ser um or PlasmaOrdered By: Linda Rodriguez on 04-13-2023 Sodium [Moles/Vol] 143 mmol/L 136-145 [facility] Specific gravity Auto test s trip (U) [Rel density]Ordered By: Linda Rodriguez on 04-13-2023 Specific gravity (U) [Rel density] 1.018 1.001-1.030 [facility] Squamous epithelial cells de tection in urine sediment by light microscopyOrdered By: Linda Rodriguez on 04-13-2023 Epithelial cells.squamous LM Ql (Urine sed) 0-1 [HPF] 0-2 [facility] Urea nitrogen [Mass/volume] in Serum or PlasmaOrdered By: Linda Rodriguez on 04-13-2023 Urea nitrogen [Mass/Vol] 13 mg/dL 7 [facility] Urine Cultureon 04-13-2023 Bacteria identified Cx Nom (U) ORGANISM: Proteus vulgaris group (O:PROVULGRP) [place] Count >100,000 ORGANISM: Providencia rettgeri (O:PRORET) [place] Count 75,000 Aerobic BANG Charge (NMIC56) ----- [...] RESISTANT TO ALL B-LACTAM DRUGS. PERFORMED BY: [facility] [address] [place] [address] PATHOLOGIST RESEARCH KENNEL SUPERVISOR NOAH PINEDA M.D. [facility] Comment on above: Performed By: #### C UU, ADDONUAPLUS #### [address] Urine bacteria detection by automated methodOrdered By: Linda Rodriguez on 04-13-2023 Bacteria Auto Ql (U) 4+ None Seen [facility] Urine clarity by refractomet ry automatedOrdered By: Linda Rodriguez on 04-13-2023 Clarity Refractometry automated (U) Turbid Clear [facility] Urine culture routineOrdered By: Linda Rodriguez on 04-13-2023 Bacteria identified Cx Nom (U) Proteus vulgaris group [facility] Bacteria identified Cx Nom (U) Providencia rettgeri [facility] Urine glucose measurement by automated test strip (mass/volume)Ordered By: Linda Rodriguez on 04-13-2023 Glucose Auto test strip (U) [Mass/Vol] Normal mg/dL Normal [facility] Urine hemoglobin detection b y automated test stripOrdered By: Linda Rodriguez on 04-13-2023 Hemoglobin Auto test strip Ql (U) 3+ Negative [facility] Urine leukocyte esterase det ection by automated test stripOrdered By: Linda Rodriguez on 04-13-2023 Leukocyte esterase Auto test strip Ql (U) 4+ Negative [facility] Urobilinogen Auto test strip (U) [Mass/Vol]Ordered By: Linda Rodriguez on 04-13-2023 Urobilinogen (U) [Mass/Vol] Normal mg/dL Normal [facility] WBC Auto (Bld) [#/Vol]Ordere d By: Linda Rodriguez on 04-13-2023 WBC (Bld) [#/Vol] 6.9 10*3/uL 4.1-10.5 [facility] Yeast detection in urine sed iment by light microscopyOrdered By: Linda Rodriguez on 04-13-2023 Yeast LM Ql (Urine sed) None seen [HPF] None Se en [facility] pH Auto test strip (U)Ordere d By: Linda Rodriguez on 04-13-2023 pH (U) [pH] 5.0-9.0 [facility] Consultation Noteon 03-30-20 Consultation Note [id number] #1.00TIFF Normal [facility] NM db perf SPECT rest stron 03-24-2023 NM db perf SPECT rest str [facility] [place] [address] Nuclear Medicine Report Signed Patient: Sebastian Diego MR#: [id number] 868 : 1945 Acct:[id number] Age/Sex: 77 / M ADM Date: 03/24/23 Loc: [place] Room: Type: [facility] Attending Dr: Glo Singleton MD Copies to: [...] Glo Singleton MD 03/24/231832 Signed By: 03/24/231836 [facility] RAD - CT Reporton 03-13-2023 RAD - CT Report [id number] #1.00TIFF Normal [facility] RAD - Ultrasound Reporton RAD - Ultrasound Report [id number] #1.00TIFF Normal [facility] US arterial duplex LE RTon 1 05-11-2022 US arterial duplex LE RT [facility] [place] [address] Ultrasound Report Signed Patient: Sebastian Diego MR#: [id number] 868 : 1945 Acct:[id number] Age/Sex: 77 / M ADM Date: 03/11/23 Loc: [facility] Room: Type: [facility] Attending Dr: Linda Rodriguez MD Ordering Provider: [...] Linda Rodriguez MD03/11/2023 12:17 PM Dictation Location: [id number] Tech: Osiris Leal Transcribed By: SERGE 03/11/231216 Dictated By: Linda Rodriguez MD 03/11/231215 Signed By: 03/11/231216 [facility] CT angio abdomen pelvison CT angio abdomen pelvis [facility] [place] [address] [place] [address] CT Scan Report Signed Patient: Sebastian Diego MR#: [id number] 868 : 1945 Acct:[id number] Age/Sex: 77 / M ADM Date: 02/26/23 Loc: CT Room: Type: [facility] Attending Dr: Linda Rodriguez MD Copies to: [...] Sykes Jr., D.ORobles02/26/2023 10:51 AM Dictation Location: [place] [address] Transcribed By: [facility] 02/26/23 1051 Dictated By: Jeff Sykes Jr, DO 02/26/23 1036 Signed By: 02/26/[address] [facility] Creatinine (Bld) [Mass/Vol]O rdered By: Linda Rodriguez on 02-26-2023 Creatinine [Mass/Vol] 1.1 mg/dL 0.6-1.3 [facility] Comment on above: ER/ESD physician is notified/shown all ISTAT results.Critical values may be confirmed by laboratory testing ifdeemed necessary by ER attending doctor. Consultation Noteon 02-26-20 Consultation Note [id number] #1.00TIFF Normal [facility] Physician Referralon 023 Physician Referral [id number] #1.00TIFF Normal [facility] RAD - MRI Reporton 3 RAD - MRI Report [id number] #1.00TIFF Normal [facility] Creatinine (Bld) [Mass/Vol]O rdered By: Sancho Lee on 02-10-2023 Creatinine [Mass/Vol] 1.1 mg/dL 0.6-1.3 [facility] Comment on above: ER/ESD physician is notified/shown all ISTAT results.Critical values may be confirmed by laboratory testing ifdeemed necessary by ER attending doctor. ISTAT XRay CREon 02-10-2023 Creatinine [Mass/Vol] 1.1 mg/dL Normal 0.6-1.3 [facility] Comment on above: Result Comment: ER/E SD physician is notified/shown all ISTAT results. Critical values may be confirmed by laboratory testing if deemed necessary by ER attending doctor. Performed By: #### I SCRE #### [address] ISTAT GFR > 60.0 Normal [facility] Comment on above: Result Comment: PERF ORMED BY: [place] [address] PATHOLOGIST RESEARCH KENNEL SUPERVISOR NOAH PINEDA M.D. Performed By: #### I SCRE #### [facility] [address] [place] [address] MR prostate wo/w conon 02-10 MR prostate wo/w con [facility] [place] [address] [place] [address] MRI Report Signed Patient: Sebastian Diego MR#: [id number] 868 : 1945 Acct:[id number] Age/Sex: 77 / M ADM Date: 02/10/23 Loc: MR Room: Type: [facility] Attending Dr: Sancho Lee MD Copies to: [...] Sykes Jr., D.ORobles02/10/2023 3:47 PM Dictation Location: [place] [address] Transcribed By: [facility] 02/10/23 1547 Dictated By: Jeff Sykes Jr, DO 02/10/23 1534 Signed By: 02/10/23 154 Normal [facility] No Panel InformationOrdered By: Sancho Lee on 02-10-2023 Bedside Estimated GFR (eGFR) > 60.0 [facility] Ambulatory Visit Summaryon 0 11-21-2022 Ambulatory Visit [...] 500 mg Tab) potassium chloride (Potassium Chloride (Umy-Qyed-Hlu 10) 10 mEq oral tablet, extended release) [...] Mouth Every day Refills: 3 Pickup at [id number] Unchanged aspirin (aspirin 81 mg Oral EC [...] SFGL) 0 Unchanged potassium chloride (Potassium Chloride (Aun-Dmhp-Nvb 10) 10 mEq oral tablet, extended release) Unchanged pregabalin (Lyrica 150 mg Cap) By Mouth 2 times a day Pharmacy Information [id number]: [address], [place] [id number] [phone] Allergies beta blockers (Weakness, Vomiting, Dizziness) Problems [...] tract Straining to void Urine frequency Normal [facility] Lab Reportson 11-21-2022 Lab Reports [id number] #1.00CD:127 Normal [facility] Patient Educationon 11-22-19 Patient Education Oncology Prostate [...] Where to find more information ? The [place] [employer]: www.cancer.org ? [place] [employer]: www.auanet.org Contact a health care [...] adds flu (more content not included)... Normal [facility] Urology Office/Clinic Noteon 11-21-2022 Urology Office/Clinic Note [...] [facility] [address], [place] [address]- Additional Instructions: sched MRI Patient Education Prostate Cancer Screening I, Zayda Olivares, personally scribed for Dr. Lee on 11/21/2022 [...] BID metformin 500 mg Tab Potassium Chloride (Zoy-Ysut-Dnm 10) 10 mEq oral tablet, extended release [...] Stroke: Mother (more content not included)... Normal [facility] Comment on above: Result Comment: Elec tronically [...] 500 mg Tab) potassium chloride (Potassium Chloride (Ltv-Cffs-Vbk 10) 10 mEq oral tablet, extended release) [...] [facility] [address] [place] [address]- Medications What How Much When Instructions Unchanged [...] or concerns Unchanged potassium chloride (Potassium Chloride (Cpw-Tsms-Skg 10) 10 mEq oral tablet, extended release) [...] diagnosed w (more content not included)... Normal [facility] C Urineon 09-24-2022 Bacteria identified Cx Nom [...] Locations R1: This test was performed at: [facility], [address] [place] [address], [facility] , , [facility] Comment on above: Performed By: #### 2 [id number] ####[facility] [address] [place] [address] Patient Educationon 09-23-19 23 Patient Education Oncology [...] Where to find more information ? The [place] [employer]: www.cancer.org ? [place] [employer]: www.auanet.org Contact a health care [...] adds flu (more content not included)... Normal [facility] PSA, FREE AND TOTAL RATIOon 08-27-2022 % Free PSA 20.8 % Normal [facility] Comment on above: Result Comment: The table below lists the probability of prostate cancer for men with non-suspicious SHAHZAD results and total PSA between 4 and 10 ng/mL, by patient age (Dangelo et al, BRYAN 1998, 279:1542). % Free PSA 50-64 yr 65-75 yr 0.00-10.00% 56% 55% 10.01-15.00% 24% 35% 15.01-20.00% 17% 23% 20.01-25.00% 10% 20% >25.00% 5% 9% Please note: Dangleo et al did not make specific recommendations regarding the use of percent free PSA for any other population of men. Performed By: #### P SAFREE #### [facility] [address] [place] [address] Dr. Daniel Hahn Prostate specific Ag [Mass/Vol] 13.5 ng/mL Critically high 0.0-4.0 [facility] Comment on above: Result Comment: Roch e ECLIA methodology. . According to the [place] [employer], Serum PSA should decrease and [...] disease. Performed By: #### P SAFREE #### [facility] [address] [place] [address] Dr. Daniel Hahn PSA, Free 2.81 ng/mL Normal N/A [facility] Comment on above: Result Comment: [place] JACOBO methodology. Performed By: #### P SAFREE #### [facility] [address] [place] [address] Dr. Daniel Hahn CBC AUTO DIFFon 08-25-2022 BASO # 0.1 103/ul Normal 0.0-0.1 [facility] Comment on above: Performed By: #### C BC #### [facility] [address] [place] [address] Dr. Daniel Hahn Basophils/100 WBC (Bld) 0.6 % Normal 0.2-2.0 [facility] Comment on above: Performed By: #### C BC #### [facility] [address] [place] [address] Dr. Daniel Hanh EO # 0.4 103/ul Normal 0.0-0.7 [facility] Comment on above: Performed By: #### C BC #### [facility] [address] [place] [address] Dr. Daniel Hahn Eosinophils/100 WBC (Bld) 5.6 % Normal 0.9-7.0 [facility] Comment on above: Performed By: #### C BC #### [facility] [address] [place] [address] Dr. Daniel Hahn Erythrocyte distribution width (RBC) [Ratio] 13.7 % Normal 11.0-15.0 [facility] Comment on above: Performed By: #### C BC #### [facility] [address] [place] [address] Dr. Daniel Hahn Hematocrit (Bld) [Volume fraction] 47.0 % Normal 42.0-54.0 [facility] Comment on above: Performed By: #### C BC #### [facility] [address] [place] [address] Dr. Daniel Hahn Hemoglobin (Bld) [Mass/Vol] 15.6 g/dL Normal 14.0-18.0 [facility] Comment on above: Performed By: #### C BC #### [facility] [address] [place] [address] Dr. Daniel Hahn IG # 0.02 10e3/ul Normal 0.00-0.03 [facility] Comment on above: Performed By: #### C BC #### [facility] [address] [place] [address] Dr. Daniel Hahn IG % 0.3 % Normal 0.0-0.5 [facility] Comment on above: Performed By: #### C BC #### [facility] [address] [place] [address] Dr. Daniel Hahn LYMPH # 1.8 103/ul Normal 1.2-3.8 [facility] Comment on above: Performed By: #### C BC #### [facility] [address] [place] [address] Dr. Daniel Hahn Lymphocytes/100 WBC (Bld) 22.8 % Normal 20.5-60.0 [facility] Comment on above: Performed By: #### C BC #### [facility] [address] [place] [address] Dr. Daniel Hahn MANUAL DIFF REQ NO Normal [facility] Comment on above: Performed By: #### C BC #### [facility] [address] [place] [address] Dr. Daniel Hahn MCH (RBC) [Entitic mass] 31.5 pg Normal 25.9-34.0 [facility] Comment on above: Performed By: #### C BC #### [facility] [address] [place] [address] Dr. Daniel Hahn MCHC (RBC) [Mass/Vol] 33.2 g/dL Normal 29.9-35.2 [facility] Comment on above: Performed By: #### C BC #### [facility] [address] [place] [address] Dr. Daniel Hahn MCV (RBC) [Entitic vol] 94.8 fL Critically high 80.0-94 .0 [facility] Comment on above: Performed By: #### C BC #### [facility] [address] [place] [address] Dr. Daniel Hahn MONO # 0.6 103/ul Normal 0.3-0.8 [facility] Comment on above: Performed By: #### C BC #### [facility] [address] [place] [address] Dr. Daniel Hahn Monocytes/100 WBC (Bld) 7.9 % Normal 1.7-12.0 [facility] Comment on above: Performed By: #### C BC #### [facility] [address] [place] [address] Dr. Daniel Hahn NEUT # 4.9 103/ul Normal 1.4-6.5 [facility] Comment on above: Performed By: #### C BC #### [facility] [address] [place] [address] Dr. Daniel Hahn Neutrophils/100 WBC (Bld) 62.8 % Normal 43.0-75.0 [facility] Comment on above: Performed By: #### C BC #### [facility] [address] [place] [address] Dr. aDniel Hahn Platelet mean volume (Bld) [Entitic vol] 9.9 fL Normal 9.5-13.5 [facility] Comment on above: Performed By: #### C BC #### [facility] [address] [place] [address] Dr. Daniel Hahn PLT 199 103/ul Normal 150-450 [facility] Comment on above: Performed By: #### C BC #### [facility] [address] [place] [address] Dr. Daniel Hahn RBC 4.96 106/ul Normal 4.70-6.10 [facility] Comment on above: Performed By: #### C BC #### [facility] [address] [place] [address] Dr. Daniel Hahn WBC 7.7 103/ul Normal 4.0-11.0 [facility] Comment on above: Performed By: #### C BC #### [facility] [address] [place] [address] Dr. Daniel Hahn FREE T4on 08-25-2022 Free T4 [Mass/Vol] 0.94 ng/dL Normal 0.76-1.46 [facility] Comment on above: Performed By: #### P SAFREE #### [facility] [address] [place] [address] Dr. Daniel Hahn GLYCOHEMOGLOBIN A1Con 2022 ADA RECOMMENDATION SEE BELOW Normal [facility] Comment on above: Result Comment: ADA RECOMMENDED LIMIT 4.0 - 6.0 ADA THERAPEUTIC TARGET < 7.0 ACTION SUGGESTED > 7.0 Performed By: #### A 1C #### [facility] [address] [place] [address] Dr. Daniel Hahn Glucose [Mass/Vol] 126 mg/dL Normal [facility] Comment on above: Performed By: #### A 1C #### [facility] [address] [place] [address] Dr. Daniel Hahn HbA1c (Bld) [Mass fraction] 6.0 % Normal 4.5-6.2 [facility] Comment on above: Performed By: #### A 1C #### [facility] [address] [place] [address] Dr. Daniel Hahn LIPID PROFILEon 08-25-2022 CHOL-HDL RATIO NORM SEE BELOW Normal [facility] Comment on above: Result Comment: 3.3 - 4.4 LOW RISK 4.4 - 7.1 AVERAGE RISK 7.1 - 11.0 MODERATE RISK >11.0 HIGH RISK Performed By: #### B MP, LIVER #### [facility] [address] [place] [address] Dr. Daniel Hahn Cholesterol [Mass/Vol] 180 mg/dL Normal <=200 [facility] Comment on above: Performed By: #### B MP, LIVER #### [facility] [address] [place] [address] [address] Daniel Hahn Cholesterol in HDL [Mass/Vol] 36 mg/dL Critically low 40-60 [facility] Comment on above: Performed By: #### B MP, LIVER #### [facility] [address] [place] [address] [address] Daniel Hahn Cholesterol in LDL [Mass/Vol] 85.6 mg/dL Normal [facility] Comment on above: Performed By: #### B MP, LIVER #### [facility] [address] [place] [address] [address] Daniel Hahn Cholesterol.total/Choles terol in HDL [Mass ratio] 5.0 {ratio} Normal [facility] Comment on above: Performed By: #### B MP, LIVER #### [facility] [address] [place] [address] Dr. Daniel Hahn HDL NORMAL > or = 60 mg/dl - LOW CARDIOVASCULAR RISK <40 mg/dl - HIGH CARDIOVASCULAR RISK Normal [facility] Comment on above: Performed By: #### B MP, LIVER #### [facility] [address] [place] [address] Dr. Daniel Hahn LDL CALC NORMAL SEE BELOW Normal [facility] Comment on above: Result Comment: <100 mg/dl OPTIMAL 100 - 129 mg/dl NEAR OR ABOVE OPTIMAL 130 - 159 mg/dl BORDERLINE HIGH 160 - 189 mg/dl HIGH >190 mg/dl VERY HIGH Performed By: #### B MP, LIVER #### [facility] [address] [place] [address] Dr. Daniel Hahn Triglyceride [Mass/Vol] 292 mg/dL Critically high <=150 [facility] Comment on above: Performed By: #### B MP, LIVER #### [facility] [address] [place] [address] Dr. Daniel Hahn VLDL CALC 58.4 mg/dL Normal [facility] Comment on above: Performed By: #### B MP, LIVER #### [facility] [address] [place] [address] Dr. Daniel Hahn PROF 14(COMP METB)on 023 Albumin [Mass/Vol] 3.3 g/dL Critically low 3.4-5.0 [facility] Comment on above: Performed By: #### B MP, LIVER #### [facility] [address] [place] [address] Dr. Daniel Hahn Albumin/Globulin [Mass ratio] 1.0 {ratio} Normal [facility] Comment on above: Performed By: #### B MP, LIVER #### [facility] [address] [place] [address] Dr. Daniel Hahn ALP [Catalytic activity/Vol] 108 U/L Normal 46-116 [facility] Comment on above: Performed By: #### B MP, LIVER #### [facility] [address] [place] [address] Dr. Daniel Hahn ALT [Catalytic activity/Vol] 10 U/L Critically low 16-63 [facility] Comment on above: Performed By: #### B MP, LIVER #### [facility] [address] [place] [address] Dr. Daniel Hahn Anion gap [Moles/Vol] 9.1 mmol/L Normal [facility] Comment on above: Performed By: #### B MP, LIVER #### [facility] [address] [place] [address] Dr. Daniel Hahn AST [Catalytic activity/Vol] 12 U/L Critically low 15-37 [facility] Comment on above: Performed By: #### B MP, LIVER #### [facility] [address] [place] [address] Dr. Daniel Hahn Bilirubin [Mass/Vol] 0.6 mg/dL Normal 0.2-1.0 [facility] Comment on above: Performed By: #### B MP, LIVER #### [facility] [address] [place] [address] Dr. Daniel Hahn Calcium [Mass/Vol] 9.1 mg/dL Normal 8.5-10.1 [facility] Comment on above: Performed By: #### B MP, LIVER #### [facility] [address] [place] [address] [address] Daniel Hahn Chloride [Moles/Vol] 105 mmol/L Normal 98-107 [facility] Comment on above: Performed By: #### B MP, LIVER #### [facility] [address] [place] [address] [address] Daniel Hahn CO2 [Moles/Vol] 28.7 mmol/L Normal 21.0-32.0 [facility] Comment on above: Performed By: #### B MP, LIVER #### [facility] [address] [place] [address] [address] Daniel Hahn Creatinine [Mass/Vol] 1.20 mg/dL Normal 0.70-1.30 [facility] Comment on above: Performed By: #### B MP, LIVER #### [facility] [address] [place] [address] Dr. Daniel Hahn EGFR-AF ISRAELI >60 Normal >=60 [facility] Comment on above: Performed By: #### B MP, LIVER #### [facility] [address] [address] [address] Daniel Hahn EGFR-NON AF ISRAELI 59 mL/min/1.73m2 Critically low >=60 [facility] Comment on above: Performed By: #### B MP, LIVER #### [facility] [address] [place] [address] Dr. Daniel Hahn Globulin (S) [Mass/Vol] 3.4 g/dL Normal [facility] Comment on above: Performed By: #### B MP, LIVER #### [facility] [address] [address] [address] Daniel Hahn Glucose [Mass/Vol] 115 mg/dL Critically high 74-106 [facility] Comment on above: Performed By: #### B MP, LIVER #### [facility] [address] [place] [address] Dr. Daniel Hahn Potassium [Moles/Vol] 3.8 mmol/L Normal 3.5-5.1 [facility] Comment on above: Performed By: #### B MP, LIVER #### [facility] [address] [place] [address] Dr. Daniel Hahn Protein [Mass/Vol] 6.7 g/dL Normal 6.4-8.2 [facility] Comment on above: Performed By: #### B MP, LIVER #### [facility] [address] [place] [address] Dr. Daniel Hahn Sodium [Moles/Vol] 139 mmol/L Normal 136-145 [facility] Comment on above: Performed By: #### B MP, LIVER #### [facility] [address] [place] [address] Dr. Daniel Hahn Urea nitrogen [Mass/Vol] 17.0 mg/dL Normal 7.0-18.0 [facility] Comment on above: Performed By: #### B MP, LIVER #### [facility] [address] [place] [address] Dr. Daniel Hahn Urea nitrogen/Creatinine [Mass ratio] 14.2 mg/mg Normal [facility] Comment on above: Performed By: #### B MP, LIVER #### [facility] [address] [place] [address] Dr. Daniel Hahn TSHon 08-25-2022 TSH 0.357 uIU/mL Critically low 0.358-3.740 [facility] Comment on above: Performed By: #### B MP, LIVER #### [facility] [address] [place] [address] Dr. Daniel Hahn VITAMIN D 25 OHon 08-25-2022 VIT D 25-OH 58.3 ng/mL Normal [facility] Comment on above: Performed By: #### P SAFREE #### [facility] [address] [place] [address] Dr. Daniel Hahn VIT D RANGES SEE BELOW Normal [facility] Comment on above: Result Comment: <20 ng/mL Vit D deficient 20 - <30 ng/mL Vit D insufficient 30 - 100 ng/mL Vit D sufficient >100 ng/mL Potential Toxicity Performed By: #### P SAFREE #### [facility] [address] [place] [address] Dr. Daniel Hahn CARDIAC EWELINA 3-6on 2 CK [Catalytic activity/Vol] 212 U/L Normal 39-308 [facility] Comment on above: Performed By: #### B IGNACIO, TSH #### [facility] [address] [address] [address] Daniel Hahn CK.MB [Mass/Vol] 3.01 ng/mL Normal <=3.60 [facility] Comment on above: Performed By: #### B IGNACIO, TSH #### [facility] [address] [place] [address] Dr. Daniel Hahn HSTROP 19.0 pg/mL Normal 4.0-76.1 [facility] Comment on above: Result Comment: CUT- OFF POINTS HAVE BEEN ESTABLISHED BASED ON THE FOURTH UNIVERSAL DEFINITIONS OF MYOCARDIAL INFARCTION. THE UPPER REFERENCE LIMIT (URL) OF TROPONIN, DEFINED THE 99TH PERCENTILE OF cTnI DISTRIBUTION IN A REFERENCE POPULATION, HAS BEEN CONFIRMED THE DECISION THRESHOLD FOR IN DIAGNOSIS. Performed By: #### B IGNACIO, TSH #### [facility] [address] [place] [address] Dr. Daniel Hahn CARDIAC EWELINA ADMITon 022 CK [Catalytic activity/Vol] 128 U/L Normal 39-308 [facility] Comment on above: Performed By: #### B IGNACIO, TSH #### [facility] [address] [place] [address] Dr. Daniel Hahn CK.MB [Mass/Vol] 2.01 ng/mL Normal <=3.60 [facility] Comment on above: Performed By: #### B IGNACIO, TSH #### [facility] [address] [place] [address] Dr. Daniel Hahn HSTROP 36.0 pg/mL Normal 4.0-76.1 [facility] Comment on above: Result Comment: CUT- OFF POINTS HAVE BEEN ESTABLISHED BASED ON THE FOURTH UNIVERSAL DEFINITIONS OF MYOCARDIAL INFARCTION. THE UPPER REFERENCE LIMIT (URL) OF TROPONIN, DEFINED THE 99TH PERCENTILE OF cTnI DISTRIBUTION IN A REFERENCE POPULATION, HAS BEEN CONFIRMED THE DECISION THRESHOLD FOR IN DIAGNOSIS. Performed By: #### B IGNACIO, TSH #### [facility] [address] [place] [address] Dr. Daniel Hahn DB 167 ng/mL Critically high 16-96 [facility] Comment on above: Performed By: #### B IGNACIO, TSH #### [facility] [address] [place] [address] Dr. Daniel Hahn CK [Catalytic activity/Vol] 159 U/L Normal 39-308 [facility] Comment on above: Performed By: #### B IGNACIO, TSH #### [facility] [address] [place] [address] Dr. Daniel Hahn CK.MB [Mass/Vol] 2.99 ng/mL Normal <=3.60 [facility] Comment on above: Performed By: #### B IGNACIO, TSH #### [facility] [address] [place] [address] Dr. Daniel Hahn HSTROP 15.8 pg/mL Normal 4.0-76.1 [facility] Comment on above: Result Comment: CUT- OFF POINTS HAVE BEEN ESTABLISHED BASED ON THE FOURTH UNIVERSAL DEFINITIONS OF MYOCARDIAL INFARCTION. THE UPPER REFERENCE LIMIT (URL) OF TROPONIN, DEFINED THE 99TH PERCENTILE OF cTnI DISTRIBUTION IN A REFERENCE POPULATION, HAS BEEN CONFIRMED THE DECISION THRESHOLD FOR IN DIAGNOSIS. Performed By: #### B IGNACIO, TSH #### [facility] [address] [place] [address] Dr. Daniel Hahn DB 307 ng/mL Critically high 16-96 [facility] Comment on above: Performed By: #### B IGNACIO, TSH #### [facility] [address] [place] [address] Dr. Daniel Hahn CBC AUTO DIFFon 01-14-2022 BASO # 0.1 103/ul Normal 0.0-0.1 [facility] Comment on above: Performed By: #### B IGNACIO, TSH #### [facility] [address] [place] [address] Dr. Daniel Hahn Basophils/100 WBC (Bld) 0.6 % Normal 0.2-2.0 [facility] Comment on above: Performed By: #### B IGNACIO, TSH #### [facility] [address] [place] [address] Dr. Daniel Hahn EO # 0.1 103/ul Normal 0.0-0.7 [facility] Comment on above: Performed By: #### B IGNACIO, TSH #### [facility] [address] [place] [address] Dr. Daniel Hahn Eosinophils/100 WBC (Bld) 1.1 % Normal 0.9-7.0 [facility] Comment on above: Performed By: #### B IGNACIO, TSH #### [facility] [address] [place] [address] Dr. Daniel Hahn Erythrocyte distribution width (RBC) [Ratio] 13.6 % Normal 11.0-15.0 [facility] Comment on above: Performed By: #### B IGNACIO, TSH #### [facility] [address] [place] [address] Dr. Daniel Hahn Hematocrit (Bld) [Volume fraction] 43.4 % Normal 42.0-54.0 [facility] Comment on above: Performed By: #### B GINACIO, TSH #### [facility] [address] [place] [address] Dr. Daniel Hahn Hemoglobin (Bld) [Mass/Vol] 14.1 g/dL Normal 14.0-18.0 [facility] Comment on above: Performed By: #### B IGNACIO, TSH #### [facility] [address] [place] [address] Dr. Daniel Hahn IG # 0.02 10e3/ul Normal 0.00-0.03 [facility] Comment on above: Performed By: #### B IGNACIO, TSH #### [facility] [address] [place] [address] Dr. Daniel Hahn IG % 0.2 % Normal 0.0-0.5 [facility] Comment on above: Performed By: #### B IGNACIO, TSH #### [facility] [address] [place] [address] Dr. Daniel Hahn LYMPH # 2.3 103/ul Normal 1.2-3.8 [facility] Comment on above: Performed By: #### B IGNACIO, TSH #### [facility] [address] [place] [address] Dr. Daniel Hahn Lymphocytes/100 WBC (Bld) 25.5 % Normal 20.5-60.0 [facility] Comment on above: Performed By: #### B MP, TSH #### [facility] [address] [place] [address] Dr. Daniel Hahn MANUAL DIFF REQ NO Normal [facility] Comment on above: Performed By: #### B MP, TSH #### [facility] [address] [place] [address] Dr. Daniel Hahn MCH (RBC) [Entitic mass] 32.0 pg Normal 25.9-34.0 [facility] Comment on above: Performed By: #### B IGNACIO, TSH #### [facility] [address] [place] [address] Dr. Daniel Hahn MCHC (RBC) [Mass/Vol] 32.5 g/dL Normal 29.9-35.2 [facility] Comment on above: Performed By: #### B IGNACIO, TSH #### [facility] [address] [place] [address] Dr. Daniel Hahn MCV (RBC) [Entitic vol] 98.4 fL Critically high 80.0-94 .0 [facility] Comment on above: Performed By: #### B IGNACIO, TSH #### [facility] [address] [place] [address] Dr. Daniel Hahn MONO # 0.8 103/ul Normal 0.3-0.8 [facility] Comment on above: Performed By: #### B IGNACIO, TSH #### [facility] [address] [place] [address] Dr. Daniel Hahn Monocytes/100 WBC (Bld) 8.8 % Normal 1.7-12.0 [facility] Comment on above: Performed By: #### B MP, TSH #### [facility] [address] [place] [address] Dr. Daniel Hahn NEUT # 5.6 103/ul Normal 1.4-6.5 [facility] Comment on above: Performed By: #### B MP, TSH #### [facility] [address] [address] [address] Daniel Hahn Neutrophils/100 WBC (Bld) 63.8 % Normal 43.0-75.0 [facility] Comment on above: Performed By: #### B MP, TSH #### [facility] [address] [address] [address] Daniel Hahn Platelet mean volume (Bld) [Entitic vol] 10.0 fL Normal 9.5-13.5 [facility] Comment on above: Performed By: #### B MP, TSH #### [facility] [address] [address] [address] Daniel Hahn PLT 212 103/ul Normal 150-450 [facility] Comment on above: Performed By: #### B MP, TSH #### [facility] [address] [address] [address] Daniel Hahn RBC 4.41 106/ul Critically low 4.70-6.10 [facility] Comment on above: Performed By: #### B MP, TSH #### [facility] [address] [address] [address] Daniel Hahn WBC 8.8 103/ul Normal 4.0-11.0 [facility] Comment on above: Performed By: #### B MP, TSH #### [facility] [address] [address] [address] Daniel Hahn BASO # 0.1 103/ul Normal 0.0-0.1 [facility] Comment on above: Performed By: #### B MP, TSH #### [facility] [address] [address] [address] Daniel Hahn Basophils/100 WBC (Bld) 0.6 % Normal 0.2-2.0 [facility] Comment on above: Performed By: #### B MP, TSH #### [facility] [address] [address] [address] Daniel Hahn EO # 0.1 103/ul Normal 0.0-0.7 [facility] Comment on above: Performed By: #### B MP, TSH #### [facility] [address] [place] [address] Dr. Daniel Hahn Eosinophils/100 WBC (Bld) 0.6 % Critically low 0.9-7.0 [facility] Comment on above: Performed By: #### B MP, TSH #### [facility] [address] [place] [address] Dr. Daniel Hahn Erythrocyte distribution width (RBC) [Ratio] 13.3 % Normal 11.0-15.0 [facility] Comment on above: Performed By: #### B MP, TSH #### [facility] [address] [place] [address] Dr. Daniel Hahn Hematocrit (Bld) [Volume fraction] 46.4 % Normal 42.0-54.0 [facility] Comment on above: Performed By: #### B MP, TSH #### [facility] [address] [place] [address] Dr. Daniel Hahn Hemoglobin (Bld) [Mass/Vol] 15.0 g/dL Normal 14.0-18.0 [facility] Comment on above: Performed By: #### B MP, TSH #### [facility] [address] [place] [address] Dr. Daniel Hahn IG # 0.03 10e3/ul Normal 0.00-0.03 [facility] Comment on above: Performed By: #### B MP, TSH #### [facility] [address] [place] [address] Dr. Daniel Hahn IG % 0.4 % Normal 0.0-0.5 [facility] Comment on above: Performed By: #### B MP, TSH #### [facility] [address] [place] [address] Dr. Daniel Hahn LYMPH # 1.3 103/ul Normal 1.2-3.8 [facility] Comment on above: Performed By: #### B MP, TSH #### [facility] [address] [place] [address] Dr. Daniel Hahn Lymphocytes/100 WBC (Bld) 15.6 % Critically low 20.5-60.0 [facility] Comment on above: Performed By: #### B MP, TSH #### [facility] [address] [address] [address] Daniel Hahn MANUAL DIFF REQ NO Normal [facility] Comment on above: Performed By: #### B MP, TSH #### [facility] [address] [address] [address] Daniel Hahn MCH (RBC) [Entitic mass] 31.7 pg Normal 25.9-34.0 [facility] Comment on above: Performed By: #### B MP, TSH #### [facility] [address] [place] [address] Dr. Daniel Hahn MCHC (RBC) [Mass/Vol] 32.3 g/dL Normal 29.9-35.2 [facility] Comment on above: Performed By: #### B MP, TSH #### [facility] [address] [place] [address] Dr. Daniel Hahn MCV (RBC) [Entitic vol] 98.1 fL Critically high 80.0-94 .0 [facility] Comment on above: Performed By: #### B MP, TSH #### [facility] [address] [place] [address] Dr. Daniel Hahn MONO # 0.5 103/ul Normal 0.3-0.8 [facility] Comment on above: Performed By: #### B MP, TSH #### [facility] [address] [place] [address] Dr. Daniel Hahn Monocytes/100 WBC (Bld) 6.1 % Normal 1.7-12.0 [facility] Comment on above: Performed By: #### B MP, TSH #### [facility] [address] [place] [address] Dr. Daniel Hahn NEUT # 6.4 103/ul Normal 1.4-6.5 [facility] Comment on above: Performed By: #### B MP, TSH #### [facility] [address] [place] [address] Dr. Daniel Hahn Neutrophils/100 WBC (Bld) 76.7 % Critically high 43.0-75.0 [facility] Comment on above: Performed By: #### B MP, TSH #### [facility] [address] [address] [address] Daniel Hahn Platelet mean volume (Bld) [Entitic vol] 9.9 fL Normal 9.5-13.5 [facility] Comment on above: Performed By: #### B MP, TSH #### [facility] [address] [address] [address] Daniel Hahn PLT 247 103/ul Normal 150-450 [facility] Comment on above: Performed By: #### B MP, TSH #### [facility] [address] [address] [address] Daniel Hahn RBC 4.73 106/ul Normal 4.70-6.10 [facility] Comment on above: Performed By: #### B MP, TSH #### [facility] [address] [address] [address] Daniel Hahn WBC 8.4 103/ul Normal 4.0-11.0 [facility] Comment on above: Performed By: #### B MP, TSH #### [facility] [address] [address] [address] Daniel Hahn CTA CHEST WO W [...] CARMEN MURDOCK Date: 2022-01-14 02:34 Normal [facility] Covid-19 PCR (CVDTBH)on 01-02 SARS-CoV-2 (COVID-19) RNA LEIGHTON+probe Ql (Unsp spec) Not detected Normal NOT DETECTED [facility] Comment on above: Result Comment: When [...] for this test is supported by the [place] of Health and Human Service's declaration that [...] Performed By: #### B MP, TSH #### [facility] [address] [address] [address] Daniel Hahn D-DIMERon 01-14-2022 D-DIMER 2.00 mg/L FEU Critically high <=0.59 [facility] Comment on above: Performed By: #### B MP, TSH #### [facility] [address] [place], [place] [address] Dr. Daniel Hahn D-DIMER COMMENTS SEE BELOW Normal [facility] Comment on above: Result Comment: Incr [...] Performed By: #### B MP, TSH #### [facility] [address] [address] [address] Daniel Hahn ECHO LIMITED STUDYon 022 ECHO LIMITED STUDY Patient: SEBASTIAN DIEGO Exam Date: 01/14/2022 : 1945 Gender:M Ordering : JULEE DUONG Admission #: [id number] Family : DR LEE PARSONS . Order #: [id number] CLICK HERE TO VIEW EXAM ECHOCARDIOGRAM REPORT [...] Nguyen M.D. on 01/14/2022 at 18:23 Normal [facility] ER URINE PROFILEon 2 Bilirubin Ql (U) Negative Normal NEGATIVE [facility] Comment on above: Performed By: #### E RUR #### [facility] [address] [place] [address] Dr. Daniel Hahn Clarity (U) CLEAR Normal CLEAR [facility] Comment on above: Performed By: #### E RUR #### [facility] [address] [place] [address] Dr. Daniel Hahn Color (U) YELLOW Normal YELLOW [facility] Comment on above: Performed By: #### E RUR #### [facility] [address] [place] [address] Dr. Daniel WADE A micrscopic examination will be performed if indicated. Normal [facility] Comment on above: Performed By: #### E RUR #### [facility] [address] [place] [address] Dr. Daniel Hahn Glucose Ql (U) Negative Normal NEGATIVE [facility] Comment on above: Performed By: #### E RUR #### [facility] [address] [place] [address] Dr. Daniel Hahn Hemoglobin Ql (U) Negative Normal NEGATIVE [facility] Comment on above: Performed By: #### E RUR #### [facility] [address] [place] [address] Dr. Daniel Hahn Ketones Ql (U) Negative Normal NEGATIVE [facility] Comment on above: Performed By: #### E RUR #### [facility] [address] [place] [address] Dr. Daniel Hahn LEUKOCYTES Negative Normal NEGATIVE [facility] Comment on above: Performed By: #### E RUR #### [facility] [address] [place] [address] Dr. Daniel Hahn Nitrite Ql (U) Negative Normal NEGATIVE [facility] Comment on above: Performed By: #### E RUR #### [facility] [address] [place] [address] Dr. Daniel Hahn pH (U) 5.5 [pH] Normal 5-9 [facility] Comment on above: Performed By: #### E RUR #### [facility] [address] [place] [address] Dr. Daniel Hahn SPEC GRAVITY 1.025 Normal 1.005-<=1.02 5 [facility] Comment on above: Performed By: #### E RUR #### [facility] [address] [place] [address] Dr. Daniel Hahn UA PROTEIN TRACE Normal NEGATIVE/ TRACE [facility] Comment on above: Performed By: #### E RUR #### [facility] [address] [place] [address] Dr. Daniel Hahn UR MICRO IND NOT INDICATED Normal [facility] Comment on above: Performed By: #### E RUR #### [facility] [address] [place] [address] Dr. Daniel Hahn Urobilinogen Qn (U) 4 {Julien'U}/dL Abnormal 0.2 - 1.0 [facility] Comment on above: Performed By: #### E RUR #### [facility] [address] [place] [address] Dr. Daniel Hahn LACTATE/LACTIC ACIDon 2021 Lactate [Moles/Vol] 2.6 mmol/L Critically high 0.4-1.9 [facility] Comment on above: Performed By: #### B MP, LIVER #### [facility] [address] [place] [address] Dr. Daniel Hahn Lactate [Moles/Vol] 2.6 mmol/L Critically high 0.4-1.9 [facility] Comment on above: Performed By: #### B MP, TSH #### [facility] [address] [place] [address] Dr. Daniel Hahn Lactate [Moles/Vol] 3.7 mmol/L Critically high 0.4-1.9 [facility] Comment on above: Performed By: #### P SAFREE #### [facility] [address] [address] [address] Daniel Hahn LIVER PROFILEon 01-14-2022 Albumin [Mass/Vol] 3.4 g/dL Normal 3.4-5.0 [facility] Comment on above: Performed By: #### B MP, TSH #### [facility] [address] [place] [address] Dr. Daniel Hahn Albumin/Globulin [Mass ratio] 1.1 {ratio} Normal [facility] Comment on above: Performed By: #### B MP, TSH #### [facility] [address] [place] [address] Dr. Daniel Hahn ALP [Catalytic activity/Vol] 100 U/L Normal 46-116 [facility] Comment on above: Performed By: #### B MP, TSH #### [facility] [address] [place] [address] Dr. Daniel Hahn ALT [Catalytic activity/Vol] 21 U/L Normal 16-63 [facility] Comment on above: Performed By: #### B MP, TSH #### [facility] [address] [place] [address] Dr. Daniel Hahn AST [Catalytic activity/Vol] 25 U/L Normal 15-37 [facility] Comment on above: Performed By: #### B MP, TSH #### [facility] [address] [place] [address] Dr. Daniel Hahn BILI, CONJUGATED 0.0 mg/dL Normal 0.0-0.2 [facility] Comment on above: Performed By: #### B MP, TSH #### [facility] [address] [place] [address] Dr. Daniel Hahn Bilirubin [Mass/Vol] 0.7 mg/dL Normal 0.2-1.0 [facility] Comment on above: Performed By: #### B MP, TSH #### [facility] [address] [place] [address] Dr. Daniel Hahn Globulin (S) [Mass/Vol] 3.2 g/dL Normal T [facility] Comment on above: Performed By: #### B MP, TSH #### [facility] [address] [address] [address] Daniel Hahn Protein [Mass/Vol] 6.6 g/dL Normal 6.4-8.2 [facility] Comment on above: Performed By: #### B MP, TSH #### [facility] [address] [address] [address] Daniel Hahn PROF 14(COMP METB)on 022 Albumin [Mass/Vol] 3.1 g/dL Critically low 3.4-5.0 [facility] Comment on above: Performed By: #### C MP #### [facility] [address] [place] [address] Dr. Daniel Hahn Albumin/Globulin [Mass ratio] 1.1 {ratio} Normal [facility] Comment on above: Performed By: #### C MP #### [facility] [address] [place] [address] Dr. Daniel Hahn ALP [Catalytic activity/Vol] 91 U/L Normal 46-116 [facility] Comment on above: Performed By: #### C MP #### [facility] [address] [place] [address] Dr. Daniel Hahn ALT [Catalytic activity/Vol] 17 U/L Normal 16-63 [facility] Comment on above: Performed By: #### C MP #### [facility] [address] [place] [address] Dr. Daniel Hahn Anion gap [Moles/Vol] 13.4 mmol/L Normal [facility] Comment on above: Performed By: #### C MP #### [facility] [address] [address] [address] Daniel Hahn AST [Catalytic activity/Vol] 18 U/L Normal 15-37 [facility] Comment on above: Performed By: #### C MP #### [facility] [address] [place] [address] Dr. Daniel Hahn Bilirubin [Mass/Vol] 0.4 mg/dL Normal 0.2-1.0 [facility] Comment on above: Performed By: #### C MP #### [facility] [address] [address] [address] Daniel Hahn Calcium [Mass/Vol] 8.8 mg/dL Normal 8.5-10.1 [facility] Comment on above: Performed By: #### C MP #### [facility] [address] [address] [address] Daniel Hahn Chloride [Moles/Vol] 109 mmol/L Critically high 98-107 [facility] Comment on above: Performed By: #### C MP #### [facility] [address] [address] [address] Daniel Hahn CO2 [Moles/Vol] 24.2 mmol/L Normal 21.0-32.0 [facility] Comment on above: Performed By: #### C MP #### [facility] [address] [address] [address] Daniel Hahn Creatinine [Mass/Vol] 1.20 mg/dL Normal 0.70-1.30 [facility] Comment on above: Performed By: #### C MP #### [facility] [address] [address] [address] Daniel Hahn EGFR-AF ISRAELI >60 Normal >=60 [facility] Comment on above: Performed By: #### C MP #### [facility] [address] [address] [address] Daniel Hahn EGFR-NON AF ISRAELI 59 mL/min/1.73m2 Critically low >=60 [facility] Comment on above: Performed By: #### C MP #### [facility] [address] [address] [address] Daniel Hahn Globulin (S) [Mass/Vol] 2.9 g/dL Normal [facility] Comment on above: Performed By: #### C MP #### [facility] [address] [address] [address] Daniel Hahn Glucose [Mass/Vol] 151 mg/dL Critically high 74-106 [facility] Comment on above: Performed By: #### C MP #### [facility] [address] [address] [address] Daniel Hahn Potassium [Moles/Vol] 3.6 mmol/L Normal 3.5-5.1 [facility] Comment on above: Performed By: #### C MP #### [facility] [address] [address] [address] Daniel Hahn Protein [Mass/Vol] 6.0 g/dL Critically low 6.4-8.2 [facility] Comment on above: Performed By: #### C MP #### [facility] [address] [address] [address] Daniel Hahn Sodium [Moles/Vol] 143 mmol/L Normal 136-145 [facility] Comment on above: Performed By: #### C MP #### [facility] [address] [place] [address] Dr. Daniel Hahn Urea nitrogen [Mass/Vol] 9.0 mg/dL Normal 7.0-18.0 [facility] Comment on above: Performed By: #### C MP #### [facility] [address] [address] [address] Daniel Hahn Urea nitrogen/Creatinine [Mass ratio] 7.5 mg/mg Normal [facility] Comment on above: Performed By: #### C MP #### [facility] [address] [address] [address] Daniel Hahn PROF CHEM 8 (BAS METB)on Anion gap [Moles/Vol] 12.0 mmol/L Normal [facility] Comment on above: Performed By: #### B MP, TSH #### [facility] [address] [address] [address] Daniel Hahn Calcium [Mass/Vol] 8.9 mg/dL Normal 8.5-10.1 [facility] Comment on above: Performed By: #### B MP, TSH #### [facility] [address] [address] [address] Daniel Hahn Chloride [Moles/Vol] 106 mmol/L Normal 98-107 [facility] Comment on above: Performed By: #### B MP, TSH #### [facility] [address] [address] [address] Daniel Hahn CO2 [Moles/Vol] 25.3 mmol/L Normal 21.0-32.0 [facility] Comment on above: Performed By: #### B MP, TSH #### [facility] [address] [address] [address] Daniel Hahn Creatinine [Mass/Vol] 1.50 mg/dL Critically high 0.70-1.30 [facility] Comment on above: Performed By: #### B MP, TSH #### [facility] [address] [address] [address] Daniel Hahn EGFR-AF ISRAELI 55 mL/min/1.73m2 Critically low >=60 [facility] Comment on above: Performed By: #### B MP, TSH #### [facility] [address] [address] [address] Daniel Hahn EGFR-NON AF ISRAELI 46 mL/min/1.73m2 Critically low >=60 [facility] Comment on above: Performed By: #### B MP, TSH #### [facility] [address] [address] [address] Daniel Hahn Glucose [Mass/Vol] 213 mg/dL Critically high 74-106 [facility] Comment on above: Performed By: #### B MP, TSH #### [facility] [address] [address] [address] Daniel Hahn Potassium [Moles/Vol] 3.3 mmol/L Critically low 3.5-5.1 [facility] Comment on above: Performed By: #### B MP, TSH #### [facility] [address] [address] [address] Daniel Hahn Sodium [Moles/Vol] 140 mmol/L Normal 136-145 [facility] Comment on above: Performed By: #### B MP, TSH #### [facility] [address] [address] [address] Daniel Hahn Urea nitrogen [Mass/Vol] 11.0 mg/dL Normal 7.0-18.0 [facility] Comment on above: Performed By: #### B MP, TSH #### [facility] [address] [address] [address] Daniel Hahn Urea nitrogen/Creatinine [Mass ratio] 7.3 mg/mg Normal [facility] Comment on above: Performed By: #### B MP, TSH #### [facility] [id number] Daniel Hahn TSHon 01-14-2022 TSH 0.213 uIU/mL Critically low 0.358-3.740 [facility] Comment on above: Performed By: #### B MP, TSH #### [facility] [address] [place], [place] [id number] Dr. Daniel Hahn XR CHEST 1 Von [...] by: ALKA MORENO Date: 2022-01-14 00:55 Normal [facility] PTH INTACTon 12-25-2021 PTH, Intact 26 pg/mL Normal 15-65 [facility] Comment on above: Performed By: #### B MP, TSH #### [facility] [address] [address] [address] Daniel Hahn VIT D 25-OH LABCORPon 2021 Vitamin D, 25-Hydroxy 52.5 ng/mL Normal 30.0-100.0 [facility] Comment on above: Result Comment: Megan min D deficiency has been defined by the [employer] and an Endocrine Society practice guideline as a level of serum 25-OH vitamin D less than 20 ng/mL (1,2). The Endocrine Society went on to further define vitamin D insufficiency as a level between 21 and 29 ng/mL (2). 1. IOM ([employer]). 2010. Dietary reference intakes for calcium and D. [place]: The National Academies Press. 2. Jesica MF, Chely LUNA, Mandy HORNE, et al. Evaluation, treatment, and prevention of vitamin D deficiency: an Endocrine Society clinical practice guideline. JCEM. 2010; 96(7):1911-30. Performed By: #### B MP, TSH #### [facility] [address] [place] [address] Dr. Daniel Hahn FREE T3on 12-24-2021 FREE T3 2.03 pg/mlL Critically low 2.18-3.98 [facility] Comment on above: Performed By: #### B MP, TSH #### [facility] [address] [place] [address] Dr. Daniel Hahn FREE T4on 12-24-2021 Free T4 [Mass/Vol] 0.95 ng/dL Normal 0.76-1.46 [facility] Comment on above: Performed By: #### F T4 #### [facility] [address] [place] [address] Dr. Daniel Hahn GLYCOHEMOGLOBIN A1Con 2021 ADA RECOMMENDATION SEE BELOW Normal [facility] Comment on above: Result Comment: ADA RECOMMENDED LIMIT 4.0 - 6.0 ADA THERAPEUTIC TARGET < 7.0 ACTION SUGGESTED > 7.0 Performed By: #### B MP, LIVER #### [facility] [address] [place] [address] Dr. Daniel Hahn Glucose [Mass/Vol] 126 mg/dL Normal [facility] Comment on above: Performed By: #### B MP, LIVER #### [facility] [address] [place] [address] Dr. Daniel Hahn HbA1c (Bld) [Mass fraction] 6.0 % Normal 4.5-6.2 [facility] Comment on above: Performed By: #### B MP, LIVER #### [facility] [address] [place] [address] Dr. Daniel Hahn PROF 14(COMP METB)on 022 Albumin [Mass/Vol] 3.3 g/dL Critically low 3.4-5.0 [facility] Comment on above: Performed By: #### B MP, TSH #### [facility] [address] [address] [address] Daniel Hahn Albumin/Globulin [Mass ratio] 1.0 {ratio} Normal [facility] Comment on above: Performed By: #### B MP, TSH #### [facility] [address] [address] [address] Daniel Hahn ALP [Catalytic activity/Vol] 96 U/L Normal 46-116 [facility] Comment on above: Performed By: #### B MP, TSH #### [facility] [address] [address] [address] Daniel Hahn ALT [Catalytic activity/Vol] 15 U/L Critically low 16-63 [facility] Comment on above: Performed By: #### B MP, TSH #### [facility] [address] [place] [address] Dr. Daniel Hahn Anion gap [Moles/Vol] 7.4 mmol/L Normal [facility] Comment on above: Performed By: #### B MP, TSH #### [facility] [address] [place] [address] Dr. Daniel Hahn AST [Catalytic activity/Vol] 16 U/L Normal 15-37 [facility] Comment on above: Performed By: #### B MP, TSH #### [facility] [address] [place] [address] Dr. Daniel Hahn Bilirubin [Mass/Vol] 0.6 mg/dL Normal 0.2-1.0 [facility] Comment on above: Performed By: #### B MP, TSH #### [facility] [address] [place] [address] Dr. Daniel Hahn Calcium [Mass/Vol] 9.0 mg/dL Normal 8.5-10.1 [facility] Comment on above: Performed By: #### B MP, TSH #### [facility] [address] [place] [address] Dr. Daniel Hahn Chloride [Moles/Vol] 107 mmol/L Normal 98-107 [facility] Comment on above: Performed By: #### B MP, TSH #### [facility] [address] [address] [address] Daniel Hahn CO2 [Moles/Vol] 32.8 mmol/L Critically high 21.0-32.0 [facility] Comment on above: Performed By: #### B MP, TSH #### [facility] [address] [address] [address] Daniel Hahn Creatinine [Mass/Vol] 1.06 mg/dL Normal 0.70-1.30 [facility] Comment on above: Performed By: #### B MP, TSH #### [facility] [address] [address] [address] Daniel Hahn EGFR-AF ISRAELI >60 Normal >=60 [facility] Comment on above: Performed By: #### B IGNACIO, TSH #### [facility] [address] [place] [address] Dr. Daniel Hahn EGFR-NON AF ISRAELI >60 Normal >=60 [facility] Comment on above: Performed By: #### B IGNACIO, TSH #### [facility] [address] [address] [address] Daniel Hahn Globulin (S) [Mass/Vol] 3.2 g/dL Normal [facility] Comment on above: Performed By: #### B IGNACIO, TSH #### [facility] [address] [place] [address] Dr. Daniel Hahn Glucose [Mass/Vol] 148 mg/dL Critically high 74-106 [facility] Comment on above: Performed By: #### B IGNACIO, TSH #### [facility] [address] [address] [address] Daniel Hahn Potassium [Moles/Vol] 4.2 mmol/L Normal 3.5-5.1 [facility] Comment on above: Performed By: #### B MP, TSH #### [facility] [address] [address] [address] Daniel Hahn Protein [Mass/Vol] 6.5 g/dL Normal 6.4-8.2 [facility] Comment on above: Performed By: #### B IGNACIO, TSH #### [facility] [address] [address] [address] Daniel Hahn Sodium [Moles/Vol] 143 mmol/L Normal 136-145 [facility] Comment on above: Performed By: #### B MP, TSH #### [facility] [address] [address] [address] Daniel Hahn Urea nitrogen [Mass/Vol] 15.0 mg/dL Normal 7.0-18.0 [facility] Comment on above: Performed By: #### B MP, TSH #### [facility] [address] [address] [address] Daniel Hahn Urea nitrogen/Creatinine [Mass ratio] 14.2 mg/mg Normal [facility] Comment on above: Performed By: #### B MP, TSH #### [facility] [address] [place] [address] Dr. Daniel Hahn TSHon 12-24-2021 TSH 0.409 uIU/mL Normal 0.358-3.740 [facility] Comment on above: Performed By: #### P SAFREE #### [facility] [address] [place] [address] Dr. Daniel Hahn XR KUB 1 VIEWon [...] by: CAROLINE BLOUNT Date: 2021-12-24 17:55 Normal [facility] XR TSPINE 3 VIEWSon 12-25-19 22 [...] CAROLINE BLOUNT Date: 2021-12-24 18:05 Normal [facility] XR KUB 1 VIEWon 10-23-2021 XR [...] DEANDRE MIN Date: 2021-10-23 07:19 Normal [facility] UA RANDOM W/MICROSCOPICon BACTERIA TRACE Abnormal NONE SEEN [facility] Comment on above: Performed By: #### B MP, LIVER #### [facility] [address] [place] [address] Dr. Daniel Hahn Bilirubin Ql (U) Negative Normal NEGATIVE [facility] Comment on above: Performed By: #### B MP, LIVER #### [facility] [address] [address] [address] Daniel Hahn CAST NONE SEEN Normal NONE SEEN [facility] Comment on above: Performed By: #### B MP, LIVER #### [facility] [address] [address] [address] Daniel Hahn Clarity (U) CLEAR Normal CLEAR [facility] Comment on above: Performed By: #### B MP, LIVER #### [facility] [address] [place] [address] Dr. Daniel Hahn Color (U) YELLOW Normal YELLOW [facility] Comment on above: Performed By: #### B MP, LIVER #### [facility] [address] [place] [address] Dr. Daniel Hahn Crystals LM Nom (Urine sed) SEEN Abnormal NONE SEEN [facility] Comment on above: Performed By: #### B MP, LIVER #### [facility] [address] [place] [address] Dr. Daniel Hahn Epithelial cells LM Ql (Urine sed) RARE Normal NONE SEEN /RARE [facility] Comment on above: Performed By: #### B MP, LIVER #### [facility] [address] [place] [address] Dr. Daniel Hahn Glucose Ql (U) 100 mg/dl Abnormal NEGATIVE [facility] Comment on above: Performed By: #### B MP, LIVER #### [facility] [address] [place] [address] Dr. Daniel Hahn Hemoglobin Ql (U) Negative Normal NEGATIVE [facility] Comment on above: Performed By: #### B MP, LIVER #### [facility] [address] [place] [address] Dr. Daniel Hahn Ketones Ql (U) Negative Normal NEGATIVE [facility] Comment on above: Performed By: #### B MP, LIVER #### [facility] [address] [place] [address] Dr. Daniel Hhan LEUKOCYTES Negative Normal NEGATIVE [facility] Comment on above: Performed By: #### B MP, LIVER #### [facility] [address] [place] [address] Dr. Daniel Hahn MUCOUS MODERATE Abnormal NONE SEEN [facility] Comment on above: Performed By: #### B MP, LIVER #### [facility] [address] [place] [address] Dr. Daniel Hahn Nitrite Ql (U) Negative Normal NEGATIVE [facility] Comment on above: Performed By: #### B MP, LIVER #### [facility] [address] [place] [address] Dr. Daniel Hahn pH (U) 6.0 [pH] Normal 5-9 [facility] Comment on above: Performed By: #### B MP, LIVER #### [facility] [address] [place] [address] Dr. Daniel Hahn RBC 10-20 Abnormal 0-2 [facility] Comment on above: Performed By: #### B MP, LIVER #### [facility] [address] [place] [address] Dr. Daniel Hahn SPEC GRAVITY 1.020 Normal 1.005-<=1.02 5 [facility] Comment on above: Performed By: #### B MP, LIVER #### [facility] [address] [place] [address] Dr. Daniel Hahn UA PROTEIN Negative Normal NEGATIVE/ TRACE [facility] Comment on above: Performed By: #### B MP, LIVER #### [facility] [address] [place] [address] Dr. Daniel Hahn Urobilinogen Qn (U) 8 {Julien'U}/dL Abnormal 0.2 - 1.0 [facility] Comment on above: Performed By: #### B MP, LIVER #### [facility] [address] [place] [address] Dr. Daniel Hahn WBC NONE SEEN Normal NONE SEEN [facility] Comment on above: Performed By: #### B MP, LIVER #### [facility] [address] [place] [address] Dr. Daniel Hahn LIVER PROFILEon 09-26-2021 Albumin [Mass/Vol] 3.3 g/dL Critically low 3.4-5.0 [facility] Comment on above: Performed By: #### B MP, LIVER #### [facility] [address] [place] [address] Dr. Daniel Hahn Albumin/Globulin [Mass ratio] 1.0 {ratio} Normal [facility] Comment on above: Performed By: #### B MP, LIVER #### [facility] [address] [place] [address] Dr. Daniel Hahn ALP [Catalytic activity/Vol] 102 U/L Normal 46-116 [facility] Comment on above: Performed By: #### B MP, LIVER #### [facility] [address] [place] [address] Dr. Daniel Hahn ALT [Catalytic activity/Vol] 19 U/L Normal 16-63 [facility] Comment on above: Performed By: #### B MP, LIVER #### [facility] [address] [place] [address] Dr. Daniel Hahn AST [Catalytic activity/Vol] 15 U/L Normal 15-37 [facility] Comment on above: Performed By: #### B MP, LIVER #### [facility] [address] [place] [address] Dr. Daniel Hahn BILI, CONJUGATED 0.3 mg/dL Critically high 0.0-0.2 [facility] Comment on above: Performed By: #### B MP, LIVER #### [facility] [address] [place] [address] Dr. Daniel Hahn Bilirubin [Mass/Vol] 0.9 mg/dL Normal 0.2-1.0 [facility] Comment on above: Performed By: #### B MP, LIVER #### [facility] [address] [place] [address] Dr. Daniel Hahn Globulin (S) [Mass/Vol] 3.2 g/dL Normal T [facility] Comment on above: Performed By: #### B MP, LIVER #### [facility] [address] [place] [address] Dr. Daniel Hahn Protein [Mass/Vol] 6.5 g/dL Normal 6.4-8.2 [facility] Comment on above: Performed By: #### B MP, LIVER #### [facility] [address] [place] [address] Dr. Daniel Hahn PROF CHEM 8 (BAS METB)on Anion gap [Moles/Vol] 10.2 mmol/L Normal [facility] Comment on above: Performed By: #### B MP, LIVER #### [facility] [address] [place] [address] Dr. Daniel Hahn Calcium [Mass/Vol] 9.0 mg/dL Normal 8.5-10.1 [facility] Comment on above: Performed By: #### B MP, LIVER #### [facility] [address] [address] [address] Daniel Hahn Chloride [Moles/Vol] 104 mmol/L Normal 98-107 [facility] Comment on above: Performed By: #### B MP, LIVER #### [facility] [address] [place] [address] Dr. Daniel Hahn CO2 [Moles/Vol] 28.8 mmol/L Normal 21.0-32.0 [facility] Comment on above: Performed By: #### B MP, LIVER #### [facility] [address] [place] [address] Dr. Daniel Hahn Creatinine [Mass/Vol] 1.11 mg/dL Normal 0.70-1.30 [facility] Comment on above: Performed By: #### B MP, LIVER #### [facility] [address] [place] [address] Dr. Daniel Hahn EGFR-AF ISRAELI >60 Normal >=60 [facility] Comment on above: Performed By: #### B MP, LIVER #### [facility] [address] [place] [address] Dr. Daniel Hahn EGFR-NON AF ISRA[place]I >60 Normal >=60 [facility] [facility] Comment on above: Performed By: #### B MP, LIVER #### [facility] [address] [place] [address] Dr. Daniel Hahn Glucose [Mass/Vol] 179 mg/dL Critically high 74-106 [facility] Comment on above: Performed By: #### B MP, LIVER #### [facility] [address] [place] [address] Dr. Daniel Hahn Potassium [Moles/Vol] 4.0 mmol/L Normal 3.5-5.1 [facility] Comment on above: Performed By: #### B MP, LIVER #### [facility] [address] [place] [address] Dr. Daniel Hahn Sodium [Moles/Vol] 139 mmol/L Normal 136-145 [facility] Comment on above: Performed By: #### B MP, LIVER #### [facility] [address] [place] [address] Dr. Daniel Hahn Urea nitrogen [Mass/Vol] 15.0 mg/dL Normal 7.0-18.0 [facility] Comment on above: Performed By: #### B MP, LIVER #### [facility] [address] [place] [address] Dr. Daniel Hahn Urea nitrogen/Creatinine [Mass ratio] 13.5 mg/mg Normal [facility] Comment on above: Performed By: #### B MP, LIVER #### [facility] [address] [place] [address] Dr. Daniel Hahn CBC AUTO DIFFon 09-10-2021 BASO # 0.1 103/ul Normal 0.0-0.1 [facility] Comment on above: Performed By: #### P SAFREE #### [facility] [address] [place] [address] Dr. Daniel Hahn Basophils/100 WBC (Bld) 1.1 % Normal 0.2-2.0 [facility] Comment on above: Performed By: #### P SAFREE #### [facility] [address] [place] [address] Dr. Daniel Hahn EO # 0.3 103/ul Normal 0.0-0.7 [facility] Comment on above: Performed By: #### P SAFREE #### [facility] [address] [place] [address] Dr. Daniel Hahn Eosinophils/100 WBC (Bld) 4.1 % Normal 0.9-7.0 [facility] Comment on above: Performed By: #### P SAFREE #### [facility] [address] [place] [address] Dr. Daniel Hahn Erythrocyte distribution width (RBC) [Ratio] 13.6 % Normal 11.0-15.0 [facility] Comment on above: Performed By: #### P SAFREE #### [facility] [address] [place] [address] Dr. Daniel Hahn Hematocrit (Bld) [Volume fraction] 49.2 % Normal 42.0-54.0 [facility] Comment on above: Performed By: #### P SAFREE #### [facility] [address] [address] [address] Daniel Hahn Hemoglobin (Bld) [Mass/Vol] 16.1 g/dL Normal 14.0-18.0 [facility] Comment on above: Performed By: #### P SAFREE #### [facility] [address] [address] [address] Daniel Hahn IG # 0.02 10e3/ul Normal 0.00-0.03 [facility] Comment on above: Performed By: #### P SAFREE #### [facility] [address] [address] [address] Daniel Hahn IG % 0.2 % Normal 0.0-0.5 [facility] Comment on above: Performed By: #### P SAFREE #### [facility] [address] [place] [address] Dr. aDniel Hahn LYMPH # 2.3 103/ul Normal 1.2-3.8 [facility] Comment on above: Performed By: #### P SAFREE #### [facility] [address] [place] [address] Dr. Daniel Hahn Lymphocytes/100 WBC (Bld) 27.6 % Normal 20.5-60.0 [facility] Comment on above: Performed By: #### P SAFREE #### [facility] [address] [place] [address] Dr. Daniel Hahn MANUAL DIFF REQ NO Normal [facility] Comment on above: Performed By: #### P SAFREE #### [facility] [address] [place] [address] Dr. Daniel Hahn MCH (RBC) [Entitic mass] 31.4 pg Normal 25.9-34.0 [facility] Comment on above: Performed By: #### P SAFREE #### [facility] [address] [address] [address] Daniel Hahn MCHC (RBC) [Mass/Vol] 32.7 g/dL Normal 29.9-35.2 [facility] Comment on above: Performed By: #### P SAFREE #### [facility] [address] [address] [address] Daniel Hahn MCV (RBC) [Entitic vol] 96.1 fL Critically high 80.0-94 .0 [facility] Comment on above: Performed By: #### P SAFREE #### [facility] [address] [place] [address] Dr. Daniel Hahn MONO # 0.6 103/ul Normal 0.3-0.8 [facility] Comment on above: Performed By: #### P SAFREE #### [facility] [address] [place] [address] Dr. Daniel Hahn Monocytes/100 WBC (Bld) 7.8 % Normal 1.7-12.0 [facility] Comment on above: Performed By: #### P SAFREE #### [facility] [address] [place] [address] Dr. Daniel Hahn NEUT # 4.9 103/ul Normal 1.4-6.5 [facility] Comment on above: Performed By: #### P SAFREE #### [facility] [address] [place] [address] Dr. Daniel Hahn Neutrophils/100 WBC (Bld) 59.2 % Normal 43.0-75.0 [facility] Comment on above: Performed By: #### P SAFREE #### [facility] [address] [place] [address] Dr. Daniel Hahn Platelet mean volume (Bld) [Entitic vol] 10.4 fL Normal 9.5-13.5 [facility] Comment on above: Performed By: #### P SAFREE #### [facility] [address] [place] [address] Dr. Daniel Hahn PLT 284 103/ul Normal 150-450 [facility] Comment on above: Performed By: #### P SAFREE #### [facility] [address] [place] [address] Dr. Daniel Hahn RBC 5.12 106/ul Normal 4.70-6.10 [facility] Comment on above: Performed By: #### P SAFREE #### [facility] [address] [address] [address] Daniel Hahn WBC 8.2 103/ul Normal 4.0-11.0 [facility] Comment on above: Performed By: #### P SAFREE #### [facility] [address] [place] [address] Dr. Daniel Hahn FREE T4on 09-10-2021 Free T4 [Mass/Vol] 1.28 ng/dL Normal 0.76-1.46 [facility] Comment on above: Performed By: #### B MP, LIVER #### [facility] [address] [place] [address] Dr. Daniel Hahn LIVER PROFILEon 09-10-2021 Albumin [Mass/Vol] 3.7 g/dL Normal 3.4-5.0 [facility] Comment on above: Performed By: #### P SAFREE #### [facility] [address] [place] [address] Dr. Daniel Hahn Albumin/Globulin [Mass ratio] 1.1 {ratio} Normal [facility] Comment on above: Performed By: #### P SAFREE #### [facility] [address] [place] [address] Dr. Daniel Hahn ALP [Catalytic activity/Vol] 120 U/L Critically high 46-116 [facility] Comment on above: Performed By: #### P SAFREE #### [facility] [address] [place] [address] Dr. Daniel Hahn ALT [Catalytic activity/Vol] 18 U/L Normal 16-63 [facility] Comment on above: Performed By: #### P SAFREE #### [facility] [address] [place] [address] Dr. Daniel Hahn AST [Catalytic activity/Vol] 19 U/L Normal 15-37 [facility] Comment on above: Performed By: #### P SAFREE #### [facility] [address] [place] [address] Dr. Daniel Hahn BILI, CONJUGATED 0.3 mg/dL Critically high 0.0-0.2 [facility] Comment on above: Performed By: #### P SAFREE #### [facility] [address] [address] [address] Daniel Hahn Bilirubin [Mass/Vol] 1.0 mg/dL Normal 0.2-1.0 [facility] Comment on above: Performed By: #### P SAFREE #### [facility] [address] [address] [address] Daniel Hahn Globulin (S) [Mass/Vol] 3.4 g/dL Normal [facility] Comment on above: Performed By: #### P SAFREE #### [facility] [address] [place] [address] Dr. Daniel Hahn Protein [Mass/Vol] 7.1 g/dL Normal 6.4-8.2 [facility] Comment on above: Performed By: #### P SAFREE #### [facility] [address] [place] [address] Dr. Daniel Hahn PROF CHEM 8 (BAS METB)on Anion gap [Moles/Vol] 12.4 mmol/L Normal [facility] Comment on above: Performed By: #### B MP, TSH #### [facility] [address] [place] [address] Dr. Daniel Hahn Calcium [Mass/Vol] 9.2 mg/dL Normal 8.5-10.1 [facility] Comment on above: Performed By: #### B MP, TSH #### [facility] [address] [place] [address] Dr. Daniel Hahn Chloride [Moles/Vol] 103 mmol/L Normal 98-107 [facility] Comment on above: Performed By: #### B MP, TSH #### [facility] [address] [place] [address] Dr. Daniel Hahn CO2 [Moles/Vol] 28.9 mmol/L Normal 21.0-32.0 [facility] Comment on above: Performed By: #### B MP, TSH #### [facility] [address] [place] [address] Dr. Daniel Hahn Creatinine [Mass/Vol] 1.04 mg/dL Normal 0.70-1.30 [facility] Comment on above: Performed By: #### B MP, TSH #### [facility] [address] [address] [address] Daniel Hahn EGFR-AF ISRAELI >60 Normal >=60 [facility] Comment on above: Performed By: #### B MP, TSH #### [facility] [address] [address] [address] Daniel Hahn EGFR-NON AF ISRAELI >60 Normal >=60 [facility] Comment on above: Performed By: #### B MP, TSH #### [facility] [address] [address] [address] Daniel Hahn Glucose [Mass/Vol] 92 mg/dL Normal 74-106 [facility] Comment on above: Performed By: #### B MP, TSH #### [facility] [address] [address] [address] Daniel Hahn Potassium [Moles/Vol] 3.3 mmol/L Critically low 3.5-5.1 [facility] Comment on above: Performed By: #### B MP, TSH #### [facility] [address] [address] [address] Daniel Hahn Sodium [Moles/Vol] 141 mmol/L Normal 136-145 [facility] Comment on above: Performed By: #### B MP, TSH #### [facility] [address] [place] [address] Dr. Daniel Hahn Urea nitrogen [Mass/Vol] 12.0 mg/dL Normal 7.0-18.0 [facility] Comment on above: Performed By: #### B MP, TSH #### [facility] [address] [address] [address] Daniel Hahn Urea nitrogen/Creatinine [Mass ratio] 11.5 mg/mg Normal [facility] Comment on above: Performed By: #### B MP, TSH #### [facility] [address] [address] [address] Daniel Hahn TSHon 09-10-2021 TSH 0.148 uIU/mL Critically low 0.358-3.740 [facility] Comment on above: Performed By: #### B MP, TSH #### [facility] [address] [place] [address] Dr. Daniel Hahn TSH RANGE SEE BELOW Normal [facility] Comment on above: Result Comment: <0.3 4 UIU/ml HYPERTHYROID 0.34-5.60 UIU/ml EUTHYROID >5.60 UIU/ml HYPOTHYROID Performed By: #### B MP, TSH #### [facility] [address] [place] [address] Dr. 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 Daniel Hahn Clarity (U) CLEAR Normal CLEAR [facility] Comment on above: Performed By: #### B MP, TSH #### [facility] [address] [place] [address] Dr. Daniel Hahn Color (U) DK. YELLOW Normal YELLOW [facility] Comment on above: Performed By: #### B MP, TSH #### [facility] [address] [place] [address] Dr. Daniel Hahn Glucose Ql (U) Negative Normal NEGATIVE [facility] Comment on above: Performed By: #### B MP, TSH #### [facility] [address] [place] [address] Dr. Daniel Hahn Hemoglobin Ql (U) Negative Normal NEGATIVE [facility] Comment on above: Performed By: #### B MP, TSH #### [facility] [address] [place] [address] Dr. Daniel Hahn Ketones Ql (U) Negative Normal NEGATIVE [facility] Comment on above: Performed By: #### B MP, TSH #### [facility] [address] [place] [address] Dr. Daniel Hahn LEUKOCYTES Negative Normal NEGATIVE [facility] Comment on above: Performed By: #### B MP, TSH #### [facility] [address] [place] [address] Dr. Daniel Hahn Nitrite Ql (U) Negative Normal NEGATIVE [facility] Comment on above: Performed By: #### B MP, TSH #### [facility] [address] [place] [address] Dr. Daniel Hahn pH (U) 6.0 [pH] Normal 5-9 [facility] Comment on above: Performed By: #### B MP, TSH #### [facility] [address] [address] [address] Daniel Hahn SPEC GRAVITY 1.025 Normal 1.005-<=1.02 5 [facility] Comment on above: Performed By: #### B MP, TSH #### [facility] [address] [place] [address] Dr. Daniel Hahn UA PROTEIN TRACE Normal NEGATIVE/ TRACE [facility] Comment on above: Performed By: #### B IGNACIO, TSH #### [facility] [address] [place] [address] Dr. Daniel Hahn UR MICRO IND NOT INDICATED Normal [facility] Comment on above: Performed By: #### B IGNACIO, TSH #### [facility] [address] [place] [address] Dr. Daniel Hahn Urobilinogen Qn (U) 2.0 {Julien'U}/dL Abnormal 0.2 - 1. 0 [facility] Comment on above: Performed By: #### B IGNACIO, TSH #### [facility] [address] [place] [address] Dr. Daniel Hahn Vital Signs Date Time Vital Sign Value Performing Clinician Facility 05-19-2023 12:15-0500 Body temperature 96 [degF] Addie Hunt Other [facility] Other 05-19-2023 12:15-0500 Body weight 63.96 kg Addie Hunt Other [facility] Other 05-19-2023 12:15-0500 Diastolic blood pressure 56 mm[Hg] Addie Hunt Other [facility] Other 05-19-2023 12:15-0500 Systolic blood pressure 90 mm[Hg] Addie Hunt Other [facility] Other 05-14-2023 11:15-0500 Body temperature 97.8 [degF] Addie Hunt Other [facility] Other 05-14-2023 11:15-0500 Body weight 72.58 kg Addie Hunt Other [facility] Other 05-14-2023 11:15-0500 Diastolic blood pressure 82 mm[Hg] Addie Hunt Other [facility] Other 05-14-2023 11:15-0500 SaO2% (BldA) [Mass fraction] 98 % Addie Hunt Other [facility] Other 05-14-2023 11:15-0500 Systolic blood pressure 156 mm[Hg] Addie uHnt Other [facility] Other 04-24-2023 11:17-0500 Body temperature 98.7 [degF] Carmelita Aichholz Work Phone: [facility] 04-24-2023 11:17-0500 Diastolic blood pressure 73 mm[Hg] Carmelita Aichholz Work Phone: [facility] 04-24-2023 11:17-0500 Heart rate 77 /min Carmelita Aichholz Work Phone: [facility] 04-24-2023 11:17-0500 Respiratory rate 20 /min Carmelita Aichholz Work Phone: [facility] 04-24-2023 11:17-0500 SaO2% (BldA) [Mass fraction] 91 % Carmelita Aichholz Work Phone: [facility] 04-24-2023 11:17-0500 Systolic blood pressure 145 mm[Hg] Carmelita Aichholz Work Phone: [facility] 04-23-2023 06:26-0500 Body weight 74.3 kg Carmelita Aichholz Work Phone: [facility] 04-23-2023 03:28-0500 Inhaled oxygen flow rate 2 L/min Carmelita Aichholz Work Phone: [facility] 04-20-2023 09:46-0500 Body height 162.56 cm Carmelita Aichholz Work Phone: [facility] 04-20-2023 09:46-0500 Body mass index (BMI) [Ratio] 27.6 kg/m2 Carmelita Aichholz Work Phone: [facility] 04-17-2023 16:49-0500 Body temperature 99.5 [degF] Carmelita Aichholz Work Phone: [facility] 04-17-2023 16:49-0500 Diastolic blood pressure 79 mm[Hg] Carmelita Aichholz Work Phone: [facility] 04-17-2023 16:49-0500 Heart rate 86 /min Carmelita Aichholz Work Phone: [facility] 04-17-2023 16:49-0500 Respiratory rate 20 /min Carmelita Aichholz Work Phone: [facility] 04-17-2023 16:49-0500 SaO2% (BldA) [Mass fraction] 93 % Carmelita Aichholz Work Phone: [facility] 04-17-2023 16:49-0500 Systolic blood pressure 120 mm[Hg] Carmelita Aichholz Work Phone: [facility] 04-17-2023 16:48-0500 Body height 162.56 cm Carmelita Aichholz Work Phone: [facility] 04-17-2023 16:48-0500 Body weight 73.93 kg Carmelita Aichholz Work Phone: [facility] 03-24-2023 11:45-0500 Diastolic blood pressure 100 mm[Hg] Carmelita Aichholz Work Phone: [facility] 03-24-2023 11:45-0500 Heart rate 68 /min Carmelita Aichholz Work Phone: [facility] 03-24-2023 11:45-0500 Systolic blood pressure 162 mm[Hg] Carmelita Aichholz Work Phone: [facility] 03-24-2023 11:05-0500 Body height 180.34 cm Carmelita Aichholz Work Phone: [facility] 03-24-2023 11:05-0500 Body weight 70.3 kg Carmelita Aichholz Work Phone: [facility] 03-16-2023 14:00-0500 Diastolic blood pressure 88 mm[Hg] Glo Mani Other [facility] Other 03-16-2023 14:00-0500 Respiratory rate 18 /min Glo Mani Other [facility] Other 03-16-2023 14:00-0500 SaO2% (BldA) [Mass fraction] 98 % Glo Mani Other [facility] Other 03-16-2023 14:00-0500 Systolic blood pressure 172 mm[Hg] Glo Mani Other [facility] Other 03-11-2023 10:00-0500 Body temperature 97.8 [degF] Linda Michael Other [facility] Other 03-11-2023 10:00-0500 Body weight 69.85 kg Linda Michael Other [facility] Other 03-11-2023 10:00-0500 Diastolic blood pressure 64 mm[Hg] Linda Michael Other [facility] Other 03-11-2023 10:00-0500 SaO2% (BldA) [Mass fraction] 98 % Linda Michael Other [facility] Other 03-11-2023 10:00-0500 Systolic blood pressure 114 mm[Hg] Linda Michael Other [facility] Other 02-26-2023 10:19-0400 Diastolic blood pressure 104 mm[Hg] Carmelita Aichholz Work Phone: [facility] 02-26-2023 10:19-0400 Heart rate 54 /min Carmelita Aichholz Work Phone: [facility] 02-26-2023 10:19-0400 Respiratory rate 16 /min Carmelita Aichholz Work Phone: [facility] 02-26-2023 10:19-0400 SaO2% (BldA) [Mass fraction] 98 % Carmelita Aichholz Work Phone: [facility] 02-26-2023 10:19-0400 Systolic blood pressure 168 mm[Hg] Carmelita Aichholz Work Phone: [facility] 02-18-2023 09:45-0400 Body temperature 97.2 [degF] Linda Michael Other [facility] Other 02-18-2023 09:45-0400 Diastolic blood pressure 92 mm[Hg] Linda Rodriguez Other [facility] Other 02-18-2023 09:45-0400 SaO2% (BldA) [Mass fraction] 97 % Linda Michael Other [facility] Other 02-18-2023 09:45-0400 Systolic blood pressure 164 mm[Hg] Linda Michael Other [facility] Other 02-10-2023 15:02-0400 Body height 4419.6 cm Carmelita Zavala Work Phone: [facility] 02-10-2023 15:02-0400 Body weight 63.87 kg Carmelita Zavala Work Phone: [facility] Encounters Encounter Date Encounter Type Care Provider Facility Start: 06-19-2023 ambulatory Sancho Preciado ty:[facility] Start: 06-09-2023 ambulatory Sancho Preciado ty:[id number] Start: 05-26-2023 End: 05-27-2023 ambulatory Sancho LEE Facility: [facility] Start: 05-26-2023 End: 05-26-2023 Patient encounter procedure Sancho LEE [facility] Start: 05-21-2023 End: 05-21-2023 ambulatory Addie Hunt Other [facility] Other Start: 05-21-2023 Telephone encounter Addie Aldana [facility] Start: 05-19-2023 End: 05-19-2023 ambulatory Addie Hunt Other [facility] Other Start: 05-19-2023 Patient encounter procedure Addie Hunt [facility] V[facility] Surgery Start: 05-14-2023 End: 05-14-2023 ambulatory Addie Hunt Other [facility] Other Start: 05-14-2023 [facility] visit, estab pt Adide Hunt [facility] V[facility] Surgery Start: 04-21-2023 End: 04-21-2023 ambulatory Linda Rodriguez Other [facility] Other Start: 04-21-2023 Telephone encounter [facility] Start: 04-20-2023 End: 04-24-2023 Evaluation and management of inpatient Linda Rodriguez Facility:[facility] Start: 04-20-2023 End: 04-24-2023 Evaluation and management of inpatient Carmelita Garciaayoholz Work Phone: [facility]-[address] [place] [address] Surgical Work Phone: Start: 04-17-2023 End: 04-17-2023 Emergency department patient visit Mary Carey Facility:[facility] Start: 04-17-2023 End: 04-17-2023 Emergency department patient visit Carmelitacindi Zavala Work Phone: [facility]-Emergency Room Work Phone: Start: 04-17-2023 End: 04-18-2023 ambulatory Sancho LEE Facility:[facility] Start: 04-13-2023 End: 04-13-2023 ambulatory Linda Rodriguez Facility:[facility] Start: 04-13-2023 End: 04-13-2023 Patient encounter procedure Carmelita Aicayoholz Work Phone: [facility]-Pre-Surgical Testing Work Phone: Start: 03-25-2023 End: 03-25-2023 ambulatory Glo Edwardsoroge Other [facility] Other Start: 03-25-2023 Telephone encounter Glo Edwardsoroge [facility] Start: 03-24-2023 Encounter by marquise goss Glo Mani [facility] Start: 03-24-2023 End: 03-24-2023 ambulatory Carmelita Zavala Work Phone: [facility] Work Phone: Start: 03-24-2023 End: 03-24-2023 Patient encounter procedure Carmelita Lucas Work Phone: [facility] Work Phone: Start: 03-18-2023 End: 03-19-2023 ambulatory Sancho LEE Facility:[facility] Start: 03-18-2023 End: 03-18-2023 Patient encounter procedure Sancho LEE [facility] Start: 03-16-2023 End: 03-16-2023 ambulatory Glo Singleton Other [facility] Other Start: 03-16-2023 Encounter for other preprocedural examination Glo Mani [facility] Start: 03-16-2023 Office outpatient ne w 45 minutes Glo Mani [facility] Start: 03-16-2023 Preprocedural examination done Glo Edwardsoroge Other [facility] Other Start: 03-11-2023 Office outpatient vi sit 40 minutes Linda Rodriguez [facility] Start: 03-11-2023 End: 03-11-2023 ambulatory Carmelita Zavala Work Phone: [facility] Other Start: 03-11-2023 End: 03-11-2023 Patient encounter procedure Carmelita Zavala Work Phone: [facility]-Ultrasound [facility] Start: 02-26-2023 End: 02-26-2023 ambulatory Linda Rodriguez Facility:[facility] Start: 02-26-2023 End: 02-26-2023 ambulatory Carmelita Zavala Work Phone: [facility] Work Phone: Start: 02-26-2023 End: 02-26-2023 Patient encounter procedure Carmelita Zavala Work Phone: [facility]-CT Scan [facility] Work Phone: Start: 02-18-2023 End: 02-18-2023 ambulatory Linda Rodriguez Other [facility] Other Start: 02-18-2023 Office outpatient ne w 60 minutes Linda Rodriguez [facility] Vascular Surgery Start: 02-10-2023 End: 02-10-2023 ambulatory Sancho Lee Facility:[facility] Start: 02-10-2023 End: 02-10-2023 Patient encounter procedure Carmelita Zavala Work Phone: [facility]MRI [facility] Work Phone: Start: 12-29-2022 End: 12-29-2022 ambulatory Carmelita Stevensonholemily Work Phone: [facility] Work Phone: Start: 12-29-2022 End: 12-29-2022 Patient encounter procedure Carmelita Saldanaz Work Phone: [facility] Work Phone: Start: 11-21-2022 End: 11-22-2022 ambulatory Sancho LEE Facility:[facility] Start: 09-22-2022 End: 09-23-2022 ambulatory Sancho LEE Facility:[facility] Start: 09-22-2022 End: 09-23-2022 ambulatory Sancho LEE Facility:[facility] Start: 08-25-2022 End: 08-26-2022 ambulatory PHYSICAL EDUCATION INSTRUCTOR CARMELITA ZAVALA Facility:[facility] Start: 07-21-2022 ambulatory LINDA WORKMAN [facility] Start: 01-14-2022 End: 01-14-2022 ambulatory PHYSICAL EDUCATION INSTRUCTOR CARMELITA LUCAS Facility:[facility] Start: 12-24-2021 End: 12-25-2021 ambulatory PHYSICAL EDUCATION INSTRUCTOR CARMELITA LUCAS Facility:[facility] Start: 10-29-2021 End: 10-29-2021 Patient encounter procedure Mady Kramer Jr. [facility] Start: 10-22-2021 End: 10-23-[address] MADY Arboleda Facility:[facility] Start: 10-07-2021 End: 10-07-2021 ambulatory PHYSICAL EDUCATION INSTRUCTOR CARMELITA ZAVALA Facility:[facility] Start: 09-26-2021 End: 09-27-2021 ambulatory PHYSICAL EDUCATION INSTRUCTOR CARMELITA LUCAS Facility:[facility] Start: 09-10-2021 End: 09-11-2021 ambulatory PHYSICAL EDUCATION INSTRUCTOR CARMELITA LUCAS Facility:[facility] Procedures Date Procedure Procedure Detail Performing Clinician Start: 04-20-2023 Antibody screen Linda Rodriguez Comment on above: Order Comment: Trans fuse now? N Result Comment: PERF ORMED BY: [address] [address] PATHOLOGIST RESEARCH KENNEL SUPERVISOR NOAH PINEDA M.D. Start: 04-20-2023 Femoral endarterectomy [...] Joseayoneli Work Phone: Start: 08-25-2022 PSA screening PHYSICAL EDUCATION INSTRUCTOR CARMELITA STEVENSONBRODERICKEmily Comment on above: Performed By: #### P SAFREE #### [facility] [address] [address] [address] Daniel Hahn Start: 04-18-2021 Cystoscopy and [...] on above: B/L, above the knee Colonoscopy Mayd Arboleda Comment on above: over 10 years ago Extraction of cataract Vahid Kramer Jr. Comment on above: B/L Tonsillectomy Mady arizmendi Plan of Treatment Date Care Activity Detail Author Start: 04-23-2023 [facility] Start: 04-21-2023 Referral to Paste Plant Supervisor [facility] Start: 04-20-2023 Hospital admission [facility] Patient Education [facility] Work Phone: Patient referral [facility] Work Phone: [facility] Immunizations Immunization Date Immunization Notes Care Provider Lilian lew 04-22-2022 SARS-CoV-2 (COVID-19 ) [id number] Sancho LEE [facility] 02-19-2021 SARS-CoV-2 (COVID-19 ) mRNA BNT-162b2 vax Sancho LEE [facility] 01-28-2021 SARS-CoV-2 (COVID-19 ) mRNA BNT-162b2 vax Sancho LEE [facility] 02-13-2020 influenza virus vacc ine, unspecified formulation Mady Kramer Jr. [facility] 02-02-2020 pneumococcal conjuga te vaccine, 13 valent Sancho LEE [facility] 12-30-2019 influenza virus vacc ine, unspecified formulation Sancho LEE [facility] 04-10-2019 pneumococcal conjuga te vaccine, 13 valent Sancho LEE [facility] 01-11-2019 influenza virus vacc ine, unspecified formulation Sancho LEE [facility] 03-15-2018 influenza virus vacc ine, unspecified formulation Sancho LEE [facility] 03-15-2018 pneumococcal polysaccharide vaccine, 23 valent Sancho LEE [facility] 04-13-2017 influenza virus vacc ine, unspecified formulation Sancho LEE [facility] 01-30-2017 pneumococcal conjuga te vaccine, 13 valent Sancho LEE [facility] 09-21-2014 zoster vaccine, live aSncho LEE [facility] 03-30-2012 pneumococcal polysaccharide vaccine, 23 valent Mady Williams Ogden [facility] Comment on above: Early/Late Reason: N ew Med Order Payers Date Payer Category Payer Self-pay [id number] 1958 Medicare [id number] 1958 Unknown [id number] 1945 Unknown [id number] 2.16.840.1.814179.3.579.2.593 1945 Unknown [id number] 2.16.840.1.894444.3.579.2.593 1945 Unknown [id number] 2.16.840.1.946711.3.579.2.593 1945 Unknown [id number] 2.16.840.1.505340.3.579.2.593 1946 Unknown [id number] 2.16.840.1.788236.3.579.2.593 1946 Unknown [id number] 2.16.840.1.422519.3.579.2.593 1946 Unknown [id number] 2.16.840.1.190785.3.579.2.593 1946 Unknown [id number] 2.16.840.1.088865.3.579.2.727 1945 Unknown [id number] 2.16.840.1.832147.3.579.2.727 1945 Unknown [id number] 2.16.840.1.220582.3.579.2.727 1945 Unknown [id number] 2.16.840.1.963338.3.579.2.727 1945 Unknown [id number] 2.16.840.1.678497.3.579.2.727 1945 Unknown [id number] 2.16.840.1.460504.3.579.2.727 1945 Unknown [id number] 2.16.840.1.342836.3.579.2.727 Private Health Insurance [facility] [id number] Unknown [id number] 2.16.840.1.716816.3.579.2.531 Unknown [id number] 2.16.840.1.772488.3.579.2.531 Unknown [id number] 2.16.840.1.480269.3.579.2.531 Unknown [id number] 2.16.840.1.823770.3.579.2.531 Unknown [id number] 2.16.840.1.962402.3.579.2.531 Unknown [id number] 2.16.840.1.998105.3.579.2.531 Unknown [id number] 2.16.840.1.601764.3.579.2.531 Social History Date Type Detail Facility Start: 03-21-2021 End: 11-21-2022 Tobacco smoking status Never smoked tobacco (finding) [facility] Sex Assigned At Male [facility] Start: 06-18-2021 End: 06-18-2021 Tobacco smoking status NHIS Ex-smoker (finding) [facility] Start: 1945 Sex Assigned At Male F [facility] Tobacco smoking status Never [facility] Medical Equipment Procedure Code Equipment Code Equipment Origin al Text Equipment Identifier Dates CYSTOSCOPY RETROGRADE STENT INSERTION Williams Ogden MD, Mady L 04/18/21 Non Biological Ureter L [id number] FDA Start: 04-18-2021 Goals Date Patient Goal Desired Activity /State Functional Status Date Assessment Result Facility 04-24-2023 Functional status Patient at [facility] Work Phone: 10-29-2021 Functional Status N/A 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 [...] his normal follow-up for additional wound check. [facility] Other 01-11-2024 Evaluation note* Encounter Date Diagnosis [...] will also forward today's office note to [facility] as well. They verbalized understanding in the office today, agree with plan, deny any questions. Will see him in a week or 2, sooner as needed. May, Encounter for surgical aftercare following surgery of circulatory system (ICD-10 - Z48.812) [facility] Other 01-04-2024 Hospital Discharge instructions Follow Up Care 05/07/2023 09:48:20 With:JESUS DEAL, Sancho Narayanan, URL Address: [facility] [address] [place] [phone] When: Unknown [facility] 12-20-2023 Progress note Author Linda Rodriguez [facility] April 22, 2023 8:46am Note Date/Time April 22, 2023 8:14am [facility] [address] [place] [address] Vascular Surgery Progress Note Signed Patient: Sebastian Diego MR#: [id number] : 1945 Acct:[id number] Age/Sex: 77 / M Adm Date: 3 Loc: 4N Room: 8B1190-9 Type: ADM IN Attending Dr: Linda Rodriguez [...] 04/22/23 0846 [facility] Work Phone: 1(358) 311-597212-19-2023 Progress note Author Linda Rodriguez [facility] April 21, 2023 3:33pm Note Date/Time April 21, 2023 8:41am [facility] [address] [place] [address] Vascular Surgery Progress Note Signed Patient: Sebastian Diego MR#: [id number] : 1945 Acct:[id number] Age/Sex: 77 / M Adm Date: 3 Loc: Room: [address] [place] [address] Type: ADM IN Attending Dr: Linda Rodriguez [...] MPV Neut % (Auto) Lymph % (Auto) Preston % (Auto) Eos % (Auto) Baso % (Auto) Nucleat RBC Rel Count Neut # (Auto) Lymph # (Auto) Preston # (Auto) Eos # (Auto) Baso # [...] % (Auto) 91.3 Lymph % (Auto) 3.9 Preston % (Auto) 4.6 Eos % (Auto) 0.0 Baso % (Auto) 0.2 Nucleat RBC Rel Count 0.0 Neut # (Auto) 16.0 H Lymph # (Auto) 0.7 L Preston # (Auto) 0.8 Eos # (Auto) 0.0 [...] MPV Neut % (Auto) Lymph % (Auto) Preston % (Auto) Eos % (Auto) Baso % (Auto) Nucleat RBC Rel Count Neut # (Auto) Lymph # (Auto) Preston # (Auto) Eos # (Auto) Baso # (Auto) Activated Clotting Time PHA Creatinine Clear 54.31 Sodium 137 Potassium Chloride 106 Carbon Dioxide 24.7 Anion Gap TNP BUN 19 Creatinine 1.06 Est GFR (CKD-EPI) > 60.0 Glucose 130 H POC Glucose POC Glucose Comment Calcium 8.0 L Blood Type Blood Type Recheck Antibody Screen Crossmatch ([facility]) A&P - Vascular Assessment/Plan (1) Femoral artery [...] <Electronically signed by Linda Rodriguez MD> 04/21/23 9114 [facility] Work Phone: [phone]) 896-249512-18-2023 Procedure [facility]11-21-2023 Procedure [facility]11-13-2023 Evaluation note* Encounter Date Diagnosis Assessment [...] H43.813) Mar, Abnormal EKG (ICD-10 - R94.31) [facility] Other 11-08-2023 Evaluation note* Encounter Date Diagnosis [...] help him he voiced understanding of this. [facility] Other 10-18-2023 Evaluation note* Encounter Date Diagnosis [...] after the study to for further recommendations. [facility] Other 05-22-2023 NoteChief Complaint Referral *Elevated PSA [...] [facility] [address] [place] [address]- Additional Instructions: schedule MRI of prostate, f/u [...] BID metformin 500 mg Tab Potassium Chloride (Kce-Ipqt-Yzl 10) 10 mEq oral tablet, extended release [...] Comments SARS-CoV-2 (COVID-19) mRN (more content not included)...[facility]:Result Comment: Electronically Signed By: Lynne Mas.br\Date and Time Signed: 09/22/22 13:12 EDT\.br\Electronically Co-Signed By: Sancho LEE MD\.br\Date and Time Co-Signed: 09/22/22 13:22 [id number] [facility]UN[facility] - NEUROPSYCHOLOGY [address] [place] [address] Mr. Sebastian Diego was seen for a neuropsychological evaluation on 07/21/2022. A report describing the results of this evaluation will be posted upon completion. Linda Workman, PhD, ABPP Board Certified Clinical Neuropsychologist OUTPATIENT REHABILITATION SERVICES NEUROPSYCHOLOGY [address] [facility] [address] FAX: [phone] NEUROPSYCHOLOGICAL EVALUATION DATES OF SERVICE: 07/21/2022 DIANGOSES: [...] thyroid gland, elevated parathy (more content not included)...[facility]03-20-2023 [id number] Sebastian Diego Cindi 1945 M Date Provider Department Center 07/21/2022 LINDA MARTINEZ [facility] Medical Pavi No family history on fileK[facility] Health [facility]06-28-2022 Hospital Discharge instructions Patient Education 10/29/2021 11:03:50 [...] Follow these instructions at home: Medicines Take wabp-ycr-bqlwalb and prescription medicines only as told by [...] or the blood stops without treatment. Take zrcu-zsz-omnqlqk and prescription medicines only as told by your health care provider. Drink enough fluid to keep your urine clear or pale yellow. This information is not intended to replace advice given to you by your health care provider. Make sure you discuss any questions you have with your health care provider. Document Released: 04/20/2006 Document Revised: 09/14/2019 Document Reviewed: 05/23/2017 [employer] Patient Education 2020 [employer]. Follow Up Care 04/25/2021 09:31:27 With:Mady Kramer Jr., MD, URO Address: [facility] [address] [place] [phone] When:10/29/2022 Comments:LEI YEPEZ [facility] evaluation + Plan note Future Appointments Appointment Date:11/11/2022 11:15:00 AM Scheduled Provider:Mady Kramer Jr., MD Location:[facility] Appointment Type:URO Office Visit Diagnostic Tests Pending * PSA Total 10/29/21 [facility] evaluation + Plan note Future Appointments Appointment Date:04/17/2023 09:30:00 AM Scheduled Provider:Sancho LEE MD Location:[facility] Appointment Type:URO Office Visit [facility] Evaluation + Plan note Future Appointments Appointment Date:06/19/2023 11:15:00 AM Scheduled Provider:Sancho LEE MD Location:[facility] Appointment Type:URO Office Visit [facility] evalurhpno noteNo assessment information available [facility] Work Phone: evalupukdj noteNo InformationNort Formula XO Other Evaluation note* Diagnosis Onset Date Resolution Status Femoral artery aneurysm, right acute [facility] Work Phone: Hiscykr general Narrative - Reported* Type Description Date [...] SEE ABOVE SURGERIES Hospitalization History Confusion/ TIA [facility] Other Hospital course Narrative No data available for this section [facility] Hospital Discharge instructions No data available for this section [facility] Hospital Discharge instructions Additional Instructions Continue rest ice elevate Tylenol 650 mg to 1000 mg every 4 hours for pain Wear the wrist splint as needed for comfort stability Follow-up with your family doctor for recheck Return to the ER for worsening pain loss of circulation in your fingers fever chills or any other [facility] Work Phone: Hospital Discharge instructions Additional Instructions May shower. Do not soak in bathtub. Keep Prevena dressing in place x 7 days. Then remove entire dressing and discard. After that, wash daily with mild soap and water, pat dry, apply clean dry dressing.[facility] Work Phone: Progress note No data available for this section [facility] Summary Purpose Family History No Family [...] Joseayoneli Primary Care Provider Active Mary Carey [facility] Emergency Provider Active Team Status: Inactive Member Role Status Dates Carmelita J Lucas Primary Care Provider Active Linda Rodriguez MD Admit Provider, Attending Pr ovider Active (unrecognized sect ion and content) No Status Records FoundNo Status Records FoundNo Status Records FoundNo Status Records Found INFORMATION SOURCE (unrecogn ized section and content) DATE CREATED AUTHOR 08/19/2022 [facility] DATE CREATED AUTHOR AUTHOR'S ORGANIZ ATION 08/28/2022 [facility] DATE CREATED AUTHOR AUTHOR'S ORGANIZ ATION 04/30/2023 [facility] DATE CREATED AUTHOR AUTHOR'S ORGANIZ ATION 06/02/2023 [facility] Goals (unrecognized section and content) Goals may [...] BE BASED ON THE PRIMARY CLINICAL RECORDS. [facility] provides no warranty or guarantee of the accuracy or completeness of information in this document.
[2023-06-09 13:16] LABS: Estimated GFR (African America 30 (>=60); Estimated GFR (Non-African Ame 24 (>=60)
[2023-06-09 14:38] LABS: Gentamicin Trough 3.9 ug/mL (<=2.0)
== END 2023-06-09 11:50 | disposition home or self-care (01) ==
LOC: LAB 11:49
PROVIDERS: PCP Nurse Practitioner; Visit Provider Family Medicine
DX: B99.9 Unspecified infectious disease (principal); Z79.2 Long term (current) use of antibiotics
CPT/HCPCS: 36415; 80170; 82565; 84520

== ENCOUNTER 2023-06-12 02:21 | Outpatient (REF) | payer MEDICARE, SELFPAY ==
--- OUTSIDE RECORDS SUMMARY | 2023-06-12 02:25 | XMS_ITS | CCD ---
Author Name Unknown Address [address] [place] [address] Organization [facility] Care Team Providers Care Telegraph Service Rater Name Role Phone CARMELITA ZAVALA Primary Care Physician LINDA WORKMAN Attending Unavailable ANABELA, MINDY Referring Unavailable AICHHOLZ, WIRE STITCHER OPERATOR CARMELITA Primary Care Unavailable HOY ., DR HOWARD Admitting Unavailable HOY ., DR HOWARD Attending Unavailable HOY ., DR HOWARD Consulting Unavailable ANIKA CURTIS Consulting Unavailable ALKA MORENO Consulting Unavailable CARMEN MURDOCK Consulting Unavailable AD, JULEE Consulting Unavailable AICHHOLZ, WIRE STITCHER OPERATOR CARMELITA Admitting Unavailable AICHHOLZ, WIRE STITCHER OPERATOR CARMELITA Attending Unavailable AICHHOLZ, WIRE STITCHER OPERATOR CARMELITA Primary Care Unavailable AICHHOLZ, WIRE STITCHER OPERATOR CARMELITA Consulting Unavailable AICHHOLZ, WIRE STITCHER OPERATOR CARMELITA Admitting Unavailable AICHHOLZ, WIRE STITCHER OPERATOR CARMELITA Attending Unavailable AICHHOLZ, WIRE STITCHER OPERATOR CARMELITA Primary Care Unavailable AICHHOLZ, WIRE STITCHER OPERATOR CARMELITA Consulting Unavailable AICHHOLZ, WIRE STITCHER OPERATOR CARMELITA Admitting Unavailable AICHHOLZ, WIRE STITCHER OPERATOR CARMELITA Attending Unavailable AICHHOLZ, WIRE STITCHER OPERATOR CARMELITA Primary Care Unavailable AICHHOLZ, WIRE STITCHER OPERATOR CARMELITA Consulting Unavailable WILLIAMS Arboleda, DR MADY Liao Admitting Unavaila asim Arboleda, DR MADY Liao Attending Unavaila ble AICHHOLZ, WIRE STITCHER OPERATOR CARMELITA Primary Care Unavailable Deandre Min Consulting Unavailable DR MADY CAGLE JR Consulting Unavaila ble AICHHOLZ, WIRE STITCHER OPERATOR CARMELITA Admitting Unavailable AICHHOLZ, WIRE STITCHER OPERATOR CARMELITA Attending Unavailable AICHHOLZ, WIRE STITCHER OPERATOR CARMELITA Primary Care Unavailable DR CAROLINE BLOUNT V Consulting Unavailable AICHHOLZ, WIRE STITCHER OPERATOR CARMELITA Consulting Unavailable AICHHOLZ, WIRE STITCHER OPERATOR CARMELITA Admitting Unavailable AICHHOLZ, WIRE STITCHER OPERATOR CARMELITA Attending Unavailable AICHHOLZ, WIRE STITCHER OPERATOR CARMELITA Primary Care Unavailable AICHHOLZ, TATYANA CARMELITA Consulting Unavailable MD Sancho Lee Attending Provider Carmelita Zavala Primary Care Provider Linda Rodriguez Unavailable Carmelita Zavala Primary Care Provider MD Sancho Lee Attending Provider [phone] MD Linda Rodriguez Attending Provider [phone] Carmelita Zavala Primary Care Provider MD Sancho Lee Attending Provider MD Linda Rodriguez Attending Provider [phone] Glo Singleton Unavailable MD Glo Singleton Attending Provider MD Glo Singleton Referring Provider Cherry, POULTRY TENDER-BC Mary Miller Emergency Provider MD Linda Rodriguez [...] Vomiting (disorder), Dizziness (finding) [facility] (1 source) ALLERGIES NOT ON FILE; Translations: [ALLERGIES NOT ON FILE] Propensity to adverse reactions (disorder) [facility] (1 source) Adrenergic Beta-Antagonist s Drug allergy (disorder) 4 [facility] (7 sources) Beta-Blockers (Beta-Adrenergi c Bloc; Translations: [Beta-Blockers (Beta-Adrenergi c Bloc] Allergy to substance [address] [facility] (9 sources) Adrenergic Beta-Antagonist s Propensity to adverse reactions vomiting [employer] [facility] [place] Law Other (6 sources) Iodinated Contrast Media; Translations: [Iodinated Contrast Media] Allergy to substance [address] [facility] (7 sources) Contrast Allergy PreMed Pack Drug allergy Unknown [employer] [facility] [place] Other Medications Current Medications Medication Drug Class(es) [...] # 42 cap(s), Refills(s) 0, [facility]acy: [id number], 177.8, cm, 04/18/21 10:33:00 EST, Height/Length Dosing, [...] QID, # 20 tab(s), Refills(s) 0, Pharmacy: [address], 177.8, cm, 04/18/21 10:33:00 EST, Height/Length [...] hydrochloride 10 mg oral tablet (1 source) E-jaoorw-M-aspartate Receptor Antagonist Start: 03-21-2021 take 1 tablet [...] 2023 12:00am Start: 09-22-2022 Potassium Chlo ride (Gma-Hoqv-Htm 10) 10 mEq oral tablet, extended release [...] # 90 cap(s), Refills(s) 3, Pharmacy: [facility], 177.8, cm, 04/18/21 10:33:00 EST, Height/Length [...] disease (1 source) Atherosclerotic heart disease of [place] coronary artery without angina pectoris; Translations: [ASHD [place] W/O ANGINA PECTORIS] Onset: 01-17-2022 Chronic [...] Onset: 01-17-2022 Episodic Other aftercare (1 source) senior living (current) use of aspirin; Translations: [FDC CURRENT USE OF ASPIRIN] Onset: 01-17-2022 Episodic Other aftercare (1 source) 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 Glucose of more than 200 mg/dL in a nonstressed, ambulatory subject supports the diagnosis of Diabetes Mellitus. Glucose Poct Glucometerson 1 06-25-2022 Commemt1 Glu2: Cleaned Meter Normal [facility] Comment on above: Result Comment: PERF ORMED BY: [place] [address] PATHOLOGIST AUTOMATIC CASTING MACHINE OPERATOR NOAH PINEDA M.D. Performed By: #### G LULS #### Point of Care testing , Glucose [Mass/Vol] 102 mg/dL Normal [facility] Comment on above: Result Comment: [place] om Glucose Reference Range is dependent on time and content of last meal. Glucose of more than 200 mg/dL in a nonstressed, ambulatory subject supports the diagnosis of Diabetes Mellitus. Performed By: #### G LULS #### Point of Care testing , No Panel InformationOrdered By: Linda Rodriguez on 04-24-2023 Bedside Glucose Comment Glu2: cleaned meter [facility] Glucose Poct Glucometerson 1 06-24-2022 Glucose [Mass/Vol] 118 mg/dL Normal [facility] Comment on above: Result Comment: [place] Glucose Reference Range is dependent on time and content of last meal. Glucose of more than 200 mg/dL in a nonstressed, ambulatory subject supports the diagnosis of Diabetes Mellitus. PERFORMED BY: [place] [address] PATHOLOGIST AUTOMATIC CASTING MACHINE OPERATOR NOAH PINEDA M.D. Performed By: #### I SCRE #### [facility] [address] [place] [address] [place] Commemt1 Glu2: Cleaned Meter [facility] Comment on above: Result Comment: PERF ORMED BY: [place] [address] PATHOLOGIST AUTOMATIC CASTING MACHINE OPERATOR NOAH PINEDA M.D. Performed By: #### I SCRE #### [facility] [address] [place] [address] Glucose [Mass/Vol] 77 mg/dL Normal [facility] Comment on above: Result Comment: [place] Glucose Reference Range is dependent on time and content of last meal. Glucose of more than 200 mg/dL in a nonstressed, ambulatory subject supports the diagnosis of Diabetes Mellitus. Performed By: #### I SCRE #### [address] Glucose Poct Glucometerson 1 06-23-2022 Glucose [Mass/Vol] 65 mg/dL Normal [facility] Comment on above: Result Comment: [facility] Glucose Reference Range is dependent on time and content of last meal. Glucose of more than 200 mg/dL in a nonstressed, ambulatory subject supports the diagnosis of Diabetes Mellitus. PERFORMED BY: [place] [address] PATHOLOGIST AUTOMATIC CASTING MACHINE OPERATOR NOAH PINEDA M.D. Performed By: #### G LULS #### Point of Care testing , Commemt1 Glu2: Cleaned Meter Normal [facility] Comment on above: Result Comment: PERF ORMED BY: [place] [address] PATHOLOGIST AUTOMATIC CASTING MACHINE OPERATOR NOAH PINEDA M.D. Performed By: #### C MP, CBC #### [address] Glucose [Mass/Vol] 81 mg/dL Normal [facility] Comment on above: Result Comment: [facility] Glucose Reference Range is dependent on time and content of last meal. Glucose of more than 200 mg/dL in a nonstressed, ambulatory subject supports the diagnosis of Diabetes Mellitus. Performed By: #### C MP, CBC #### [address] Basic Metabolic Panelon 12-1 Anion gap [Moles/Vol] Not performed Normal 6.0-15.0 [facility] Comment on above: Performed By: #### C MP, CBC #### [place] [address] [place] Calcium [Mass/Vol] 8.0 mg/dL Low 8.6-10.3 [facility] Comment on above: Performed By: #### C MP, CBC #### [place] [address] [place] Chloride [Moles/Vol] 106 mmol/L Normal 98-107 [facility] Comment on above: Performed By: #### C MP, CBC #### [facility] [address] CO2 [Moles/Vol] 24.7 mmol/L Normal 21.0-31.0 [facility] Comment on above: Performed By: #### C MP, CBC #### [facility] [address] Creatinine [Mass/Vol] 1.06 mg/dL Normal 0.70-1.30 [facility] Comment on above: Performed By: #### C MP, CBC #### [facility] [address] [place] [address] [place] Creatinine Clr Calc Pharmacy 54.31 [facility] Comment on above: Result Comment: PERF ORMED BY: [place] [address] PATHOLOGIST AUTOMATIC CASTING MACHINE OPERATOR NOAH PINEDA M.D. Performed By: #### C MP, CBC #### [place] [address] [place] GFR/1.73 sq M.predicted MDRD (S/P/Bld) [Vol rate/Area] mL/min/{1.73_m2} [facility] Comment on above: Performed By: #### C MP, CBC #### [facility] [address] [place] [address] [place] Glucose [Mass/Vol] 130 mg/dL High 70-100 [facility] Comment on above: Result Comment: [place] Glucose Reference Range is dependent on time and content of last meal. Glucose of more than 200 mg/dL in a nonstressed, ambulatory subject supports the diagnosis of Diabetes Mellitus. ADA recommended reference range Performed By: #### C MP, CBC #### [facility] [address] [place] [address] [place] Potassium Normal 3.5-5.1 [facility] Comment on above: Result Comment: Spec imen hemolyzed, redraw requested Performed By: #### C MP, CBC #### [facility] [address] [place] [address] [place] Sodium [Moles/Vol] 137 mmol/L Normal 136-145 [facility] Comment on above: Performed By: #### C MP, CBC #### [facility] [address] Urea nitrogen [Mass/Vol] 19 mg/dL Normal 7-25 [facility] Comment on above: Performed By: #### C MP, CBC #### [facility] [address] Basophils Auto (Bld) [#/Vol] Ordered By: Linda Rodriguez on 04-21-2023 Basophils (Bld) [#/Vol] 0.0 10*3/uL 0.0-0.2 [facility] Basophils/100 WBC Auto (Bld) Ordered By: Linda Rodriguez on 04-21-2023 Basophils/100 WBC (Bld) 0.2 % . F [facility] Calcium [Mass/volume] in Ser um or PlasmaOrdered By: Linda Rodriguez on 04-21-2023 Calcium [Mass/Vol] 8.0 mg/dL 8.6-10.3 [facility] Carbon dioxide, total [Moles /volume] in Serum or PlasmaOrdered By: Linda Rodriguez on 04-21-2023 CO2 [Moles/Vol] 24.7 mmol/L 21.0-31.0 [facility] Chloride [Moles/volume] in S colleen or PlasmaOrdered By: Linda Rodriguez on 04-21-2023 Chloride [Moles/Vol] 106 mmol/L 98-107 [facility] Complete Blood Count Auto Di ffon 04-21-2023 Basophils (Bld) [#/Vol] 0.0 10*3/uL Normal 0.0-0.2 [facility] Comment on above: Result Comment: PERF ORMED BY: [place] [address] PATHOLOGIST AUTOMATIC CASTING MACHINE OPERATOR NOAH PINEDA M.D. Performed By: #### C MP, CBC #### [facility] [address] Basophils/100 WBC (Bld) 0.2 % Normal . F [facility] Comment on above: Performed By: #### C MP, CBC #### [facility] [address] [place] [address] [place] Eosinophils (Bld) [#/Vol] 0.0 10*3/uL Normal 0.0-0.45 [facility] Comment on above: Performed By: #### C MP, CBC #### [facility] [address] [place] [address] [place] Eosinophils/100 WBC (Bld) 0.0 % Normal . [facility] Comment on above: Performed By: #### C MP, CBC #### [facility] [address] Erythrocyte distribution width (RBC) [Ratio] 13.8 % Normal 12.0-14.8 [facility] Comment on above: Performed By: #### C MP, CBC #### [facility] [address] Hematocrit (Bld) [Volume fraction] 31.7 % Low 38.8-50.0 [facility] Comment on above: Performed By: #### C MP, CBC #### [facility] [address] [place] [address] [place] Hemoglobin (Bld) [Mass/Vol] 10.6 g/dL Low 13.0-17.0 [facility] Comment on above: Performed By: #### C MP, CBC #### [facility] [address] [place] [address] [place] Lymphocytes (Bld) [#/Vol] 0.7 10*3/uL Low 1.00-4.8 [facility] Comment on above: Performed By: #### C MP, CBC #### [facility] [address] [place] [address] [place] Lymphocytes/100 WBC (Bld) 3.9 % Normal . [facility] Comment on above: Performed By: #### C MP, CBC #### [facility] [address] MCH (RBC) [Entitic mass] 31.1 pg Normal 27.5-35.2 [facility] Comment on above: Performed By: #### C MP, CBC #### [facility] [address] MCV (RBC) [Entitic vol] 92.8 fL Normal 83.5-101 F [facility] Comment on above: Performed By: #### C MP, CBC #### [facility] [address] Mean Corpuscular HGB Conc 33.5 g/dL Normal 32.5-35.6 [facility] Comment on above: Performed By: #### C MP, CBC #### [facility] [address] [place] [address] [place] Monocytes (Bld) [#/Vol] 0.8 10*3/uL Normal 0.0-0.8 [facility] Comment on above: Performed By: #### C MP, CBC #### [facility] [address] [place] [address] [place] Monocytes/100 WBC (Bld) 4.6 % Normal . F [facility] Comment on above: Performed By: #### C MP, CBC #### [facility] [address] [place] [address] [place] Neutrophils (Bld) [#/Vol] 16.0 10*3/uL High 1.8-7.7 [facility] Comment on above: Performed By: #### C MP, CBC #### [facility] [address] [place] [address] [place] Neutrophils/100 WBC (Bld) 91.3 % Normal . [facility] Comment on above: Performed By: #### C MP, CBC #### [facility] [address] [place] [address] [place] NRBC% 0.0 /100{WBC} Normal 0-0.5 [facility] Comment on above: Performed By: #### C MP, CBC #### [facility] [address] Platelet mean volume (Bld) [Entitic vol] 8.1 fL Normal 6.6-10.1 [facility] Comment on above: Performed By: #### C MP, CBC #### [facility] [address] [place] [address] [place] Platelets (Bld) [#/Vol] 244 10*3/uL Normal 150-450 [facility] Comment on above: Performed By: #### C MP, CBC #### [facility] [address] RBC (Bld) [#/Vol] 3.41 10*6/uL Low 3.90-5.60 [facility] Comment on above: Performed By: #### C MP, CBC #### [facility] [address] WBC (Bld) [#/Vol] 17.5 10*3/uL High 4.1-10.5 [facility] Comment on above: Performed By: #### C MP, CBC #### [facility] [address] Creatinine [Mass/volume] in Serum or PlasmaOrdered By: Linda Rodriguez on 04-21-2023 Creatinine [Mass/Vol] 1.06 mg/dL 0.70-1.30 [facility] Eosinophils Auto (Bld) [#/Vo l]Ordered By: Linda Rodriguez on 04-21-2023 Eosinophils (Bld) [#/Vol] 0.0 10*3/uL 0.0-0.45 [facility] Eosinophils/100 WBC Auto (Bl d)Ordered By: Linda Rodriguez on 04-21-2023 Eosinophils/100 WBC (Bld) 0.0 % . [facility] Erythrocyte distribution wid th Auto (RBC) [Ratio]Ordered By: Linda Rodriguez on 04-21-2023 Erythrocyte distribution width (RBC) [Ratio] 13.8 % 12.0-14.8 [facility] Glucose [Mass/volume] in Ser um or PlasmaOrdered By: Linda Rodriguez on 04-21-2023 Glucose [Mass/Vol] 130 mg/dL 70-100 [facility] Comment on above: ADA recommended refe rence rangeRandom Glucose Reference Range is dependent on time and content of last meal. Glucose of more than 200 mg/dL in a nonstressed, ambulatory subject supports the diagnosis of Diabetes Mellitus. Hematocrit Auto (Bld) [Volum e fraction]Ordered By: Linda Rodriguez on 04-21-2023 Hematocrit (Bld) [Volume fraction] 31.7 % 38.8-50.0 [facility] Hemoglobin [Mass/volume] in BloodOrdered By: Linda Rodriguez on 04-21-2023 Hemoglobin (Bld) [Mass/Vol] 10.6 g/dL 13.0-17.0 [facility] Leukocytes [#/volume] correc teressa for nucleated erythrocytes in Blood by Automated counOrdered By: Linda Rodriguez on 04-21-2023 WBC corrected for nucl RBC Auto (Bld) [#/Vol] 17.5 10*3/uL 4.1-10.5 [facility] Lymphocytes Auto (Bld) [#/Vo l]Ordered By: Linda Rodriguez on 04-21-2023 Lymphocytes (Bld) [#/Vol] 0.7 10*3/uL 1.00-4.8 [facility] Lymphocytes/100 WBC Auto (Bl d)Ordered By: Linda Rodriguez on 04-21-2023 Lymphocytes/100 WBC (Bld) 3.9 % . [facility] MCH Auto (RBC) [Entitic mass ]Ordered By: Linda Rodriguez on 04-21-2023 MCH (RBC) [Entitic mass] 31.1 pg 27.5-35.2 [facility] MCHC Auto (RBC) [Mass/Vol]Or dered By: Linda Rodriguez on 04-21-2023 MCHC (RBC) [Mass/Vol] 33.5 g/dL 32.5-35.6 [facility] MCV Auto (RBC) [Entitic vol] Ordered By: Linda Rodriguez on 04-21-2023 MCV (RBC) [Entitic vol] 92.8 fL 83.5-101 F [facility] Monocytes Auto (Bld) [#/Vol] Ordered By: Linda Rodriguez on 04-21-2023 Monocytes (Bld) [#/Vol] 0.8 10*3/uL 0.0-0.8 [facility] Monocytes/100 WBC Auto (Bld) Ordered By: Linda Rodriguez on 04-21-2023 Monocytes/100 WBC (Bld) 4.6 % . F [facility] Neutrophils Auto (Bld) [#/Vo l]Ordered By: Linda Rodriguez on 04-21-2023 Neutrophils (Bld) [#/Vol] 16.0 10*3/uL 1.8-7.7 [facility] Neutrophils/100 WBC Auto (Bl d)Ordered By: Linda Rodriguez on 04-21-2023 Neutrophils/100 WBC (Bld) 91.3 % . [facility] No Panel InformationOrdered By: Linda Rodriguez on 04-21-2023 Estimated GFR (CKD-EPI) > 60.0 mL/Min [facility] Creatinine Clearance (Chem 54.31 [facility] Nucleated erythrocytes [Pres ence] in Blood by Automated countOrdered By: Linda Rodriguez on 04-21-2023 Nucleated RBC Auto Ql (Bld) 0.0 /100{WBC} 0-0.5 [facility] Platelet mean volume Auto (B ld) [Entitic vol]Ordered By: Linda Rodriguez on 04-21-2023 Platelet mean volume (Bld) [Entitic vol] 8.1 fL 6.6-10.1 [facility] Platelets Auto (Bld) [#/Vol] Ordered By: Linda Rodriguez on 04-21-2023 Platelets (Bld) [#/Vol] 244 10*3/uL 150-450 [facility] Potassium [Moles/volume] in Serum or PlasmaOrdered By: Linda Rodriguez on 04-21-2023 Potassium [Moles/Vol] 4.0 mmol/L 3.5-5.1 [facility] RBC Auto (Bld) [#/Vol]Ordere d By: Linda Rodriguez on 04-21-2023 RBC (Bld) [#/Vol] 3.41 10*6/uL 3.90-5.60 [facility] Redraw Potassiumon Potassium [Moles/Vol] 4.0 mmol/L Normal 3.5-5.1 [facility] Comment on above: Order Comment: SPECI MEN HEMOLYZED. NOTIFIED TROY. Result Comment: PERF ORMED BY: [facility] [address] [place] [address] PATHOLOGIST AUTOMATIC CASTING MACHINE OPERATOR NOAH PINEDA M.D. Performed By: #### C MP, CBC #### [facility] [address] Serum or plasma anion gap de terminationOrdered By: Linda Rodriguez on 04-21-2023 Anion gap [Moles/Vol] TNP [facility] Comment on above: Test not performed Sodium [Moles/volume] in Ser um or PlasmaOrdered By: Linda Rodriguez on 04-21-2023 Sodium [Moles/Vol] 137 mmol/L 136-145 [facility] Urea nitrogen [Mass/volume] in Serum or PlasmaOrdered By: Linda Rodriguez on 04-21-2023 Urea nitrogen [Mass/Vol] 19 mg/dL 7-25 [facility] WBC Auto (Bld) [#/Vol]Ordere d By: Linda Rodriguez on 04-21-2023 WBC (Bld) [#/Vol] 17.5 10*3/uL 4.1-10.5 [facility] ABO/Rh Retypeon 04-20-2023 ABO/RH Recheck Result Positive Normal [facility] Comment on above: Order Comment: Pleas e send a phleb per Lori in [place]. MLG Result Comment: PERF ORMED BY: [address] [place] [address] PATHOLOGIST AUTOMATIC CASTING MACHINE OPERATOR NOAH PINEDA M.D. Activated Clotting Timeon Activated Clotting Time POC 250 s High 90-139 [facility] Comment on above: Result Comment: Refe rence Range: 90-139 (Non-heparinized) PERFORMED BY: [address] [place] [address] PATHOLOGIST AUTOMATIC CASTING MACHINE OPERATOR NOAH PINEDA M.D. Performed By: #### A CT #### [facility] [address] [place], [place] [id number] [facility] Blood activated clotting lynda e by coagulation assayOrdered By: Linda Rodriguez on 04-20-2023 ACT Coag (Bld) 250 s 90-139 [facility] Comment on above: Reference Range: 90- 139 (Non-heparinized) Glucose Poct Glucometerson 1 06-21-2022 Glucose [Mass/Vol] 156 mg/dL Normal [facility] Comment on above: Result Comment: [place] om Glucose Reference Range is dependent on time and content of last meal. Glucose of more than 200 mg/dL in a nonstressed, ambulatory subject supports the diagnosis of Diabetes Mellitus. Performed By: #### G LULS #### Point of Care testing , Glucose [Mass/Vol] 154 mg/dL Normal [facility] Comment on above: Result Comment: [place] om Glucose Reference Range is dependent on time and content of last meal. Glucose of more than 200 mg/dL in a nonstressed, ambulatory subject supports the diagnosis of Diabetes Mellitus. PERFORMED BY: [place] [address] PATHOLOGIST AUTOMATIC CASTING MACHINE OPERATOR NOAH PINEDA M.D. Performed By: #### C MP, CBC #### [address] Commemt1 Glu2: Cleaned Meter Normal [facility] Comment on above: Result Comment: PERF ORMED BY: [place] [address] PATHOLOGIST AUTOMATIC CASTING MACHINE OPERATOR NOAH PINEDA M.D. Performed By: #### G LULS #### Point of Care testing , Performed By: #### I SCRE #### [address] Glucose [Mass/Vol] 118 mg/dL Normal [facility] Comment on above: Result Comment: [place] Glucose Reference Range is dependent on time and content of last meal. Glucose of more than 200 mg/dL in a nonstressed, ambulatory subject supports the diagnosis of Diabetes Mellitus. Performed By: #### I SCRE #### [place] [address] [place] Zack 04-20-2023 L Specimen: [id number] Received: 04/20/23 Status: KARIN Ames Num: [id number] Spec Type: Surgical Subm Dr: Linda Rodriguez MD Tissues: A Artery - Aneurysm (RT FEM ART ANERYSM) Procedures: Kathy MCLEAN/Phil L3 Age/ Patient Sex Location Account Attending Physician Sebastian Diego 77/M 4N [id number] Linda Rodriguez MD SPEC NUM: [id number] RECD: 04/20/23 STATUS: KARIN AMES NUM: [id number] ALLISON: 04/20/[address]: Linda Rodriguez MD ENTERED: 04/20/23 [facility] DR: SPEC TYPE: Surgical DEPT: S ENTERED BY: [id number] RECV BY: [id number] ORDERED: CARIDAD Gross/Micro L3 ORDERED: Kathy MCLEAN/Micro [...] red-brown semisolid material with a laminated appearance.. Power Plant Supervisor sections are submitted in one cassette labeled A1. Microscopic Description One H E slide reviewed. The microscopic examination confirms the diagnosis. CPT Codes 47448 Specimen: [id number] Received: 04/20/23 Status: KARIN Juvencio Num: [id number] Spec Type: Surgical Subm Dr: Linda Rodriguez MD Tissues: A Artery - Aneurysm (RT FEM ART ANERYSM) Procedures: Kathy MCLEAN/Phil L3 Patient: Sebastian Diego [id number] (Continued) Signed (signature on file) Niko Naranjo MD 04/21/232201 [facility] LeukoReduced RBCon LeukoReduced RBC READY [facility] Type and Screenon 04-20-2023 ABO and Rh group Nom (Bld) Blood group O Rh(D) positive [facility] Comment on above: Order Comment: Trans fuse now? N Result Comment: PERF ORMED BY: [facility] [address] [place] [address] PATHOLOGIST AUTOMATIC CASTING MACHINE OPERATOR NOAH PINEDA M.D. Ambulatory Visit Summaryon 1 [...] 500 mg Tab) potassium chloride (Potassium Chloride (Ldr-Hcku-Aff 10) 10 mEq oral tablet, extended release) [...] with JESUS DEAL, ERNA Vidal When: Where: [address] [place] [address]- Medications What How Much When Instructions Unchanged [...] or concerns Unchanged potassium chloride (Potassium Chloride (Jag-Hvoj-Qzc 10) 10 mEq oral tablet, extended release) [...] ? Bladder (more content not included)... Normal [facility] ED Note-Physicianon 04-17-20 ED Note-Physician [id number] 6#1.00TIFF [facility] Patient Educationon 04-17-20 Patient Education Urology [...] these instructions at home: Medicines ? Take vcjn-vey-fpumorb and prescription medicines only as told by [...] provider. Document Revised: 01/09/2021 Document Reviewed: 01/09/2021 [employer] Patient Education ? 2022 AYLIEN. [facility] Urology Office/Clinic Noteon 04-17-2023 Urology Office/Clinic [...] & chen inserted. Pt then went to [facility] ER 04/09/23 due to catheter not draining. PVR 650ml. Catheter was replaced. +C&S 04/09/23 >100k proteus vulgaris & >100k Providencia rettgeri Pt is scheduled this coming up Thursday for surgery for his aneurysm at [facility]. He has also hurt his right wrist. [...] & chen inserted. Pt later presented to [facility] ER 04/09/23 due to catheter not draining. [...] Contact Information JESUS DEAL, Sancho Narayanan, URL [address] [place], [place] [id number]- Additional Instructions: Prostate bx after aneurysm repair Patient Education Acute Urinary Retention, Male I, Jie Ruiz, personally scribed for Dr. Lee on 04/17/2023 10:26:56. . Documentation recorded by the scribe, Jie Ruiz, accurately reflects the services(s) I performe (more content not included)... Normal [facility] Comment on above: Result Comment: Elec tronically Signed By: Sancho LEE MD\.br\Date and Time Signed: 04/17/23 10:33 EST\.br\Electronically Co-Signed By: Jie Ruiz\.br\Date and Time Co-Signed: 04/17/23 10:27 EST\.br\Electronically Co-Signed By: Jie Ruiz\.br\Date and Time Co-Signed: 04/17/23 10:27 EST\.br\Electronically Co-Signed By: Jie Ruiz\.br\Date and Time Co-Signed: 04/17/23 10:29 EST XR wrist RT min 3V*on 2022 XR wrist RT min 3V* [place] [address] XRay Report Signed Patient: Sebastian Diego MR#: [id number] : 1945 Acct:[id number] Age/Sex: 77 / M ADM Date: 04/17/23 [...] Hugh Gates M.D.04/17/2023 5:21 PM Dictation Location: [place] [address] Transcribed By: [facility] 04/17/23 172 Dictated By: Hugh Gates DO 04/17/23 1718 Signed By: 04/17/23 172 [facility] Lab Reportson 04-14-2023 Lab Reports [id number] #1.00TIFF Normal [facility] Lab Reports [id number] #1.00TIFF Normal [facility] Alanine aminotransferase [En zymatic activity/volume] in Serum or PlasmaOrdered By: Linda Rodriguez on 04-13-2023 ALT [Catalytic activity/Vol] 8 U/L 7-52 [facility] Albumin [Mass/volume] in Ser um or Plasma by Bromocresol green (BCG) dye binding methoOrdered By: Linda Rodriguez on 04-13-2023 Albumin BCG dye [Mass/Vol] 3.4 g/dL 3.5-5.7 [facility] Alkaline phosphatase [Enzyma tic activity/volume] in Serum or PlasmaOrdered By: Linda Rodriguez on 04-13-2023 ALP [Catalytic activity/Vol] 152 U/L 34-104 [facility] Aspartate aminotransferase [ Enzymatic activity/volume] in Serum or PlasmaOrdered By: Linda Rodriguez on 04-13-2023 AST [Catalytic activity/Vol] 13 U/L 13-39 [facility] Automated erythrocytes count in urine sediment (number/area)Ordered By: Linda Rodriguez on 04-13-2023 RBC Auto (Urine sed) [#/Area] 5-9 [HPF] 0-4 [facility] Automated leukocytes count i n urine sediment (number/area)Ordered By: Linda Rodriguez on 04-13-2023 WBC Auto (Urine sed) [#/Area] Innumerable [HPF] 0-4 [facility] Basophils Auto (Bld) [#/Vol] Ordered By: Linda Rodriguez on 04-13-2023 Basophils (Bld) [#/Vol] 0.1 10*3/uL 0.0-0.2 [facility] Basophils/100 WBC Auto (Bld) Ordered By: Linda Rodriguez on 04-13-2023 Basophils/100 WBC (Bld) 0.9 % . F [facility] Bilirubin Test strip Ql (U)O rdered By: Linda Rodriguez on 04-13-2023 Bilirubin Ql (U) Negative Negative [facility] Bilirubin.total [Mass/volume ] in Serum or PlasmaOrdered By: Linda Rodriguez on 04-13-2023 Bilirubin [Mass/Vol] 1.0 mg/dL 0.3-1.0 [facility] Calcium [Mass/volume] in Ser um or PlasmaOrdered By: Linda Rodriguez on 04-13-2023 Calcium [Mass/Vol] 8.9 mg/dL 8.6-10.3 [facility] Carbon dioxide, total [Moles /volume] in Serum or PlasmaOrdered By: Linda Rodriguez on 04-13-2023 CO2 [Moles/Vol] 28.7 mmol/L 21.0-31.0 [facility] Chloride [Moles/volume] in S colleen or PlasmaOrdered By: Linda Rodriguez on 04-13-2023 Chloride [Moles/Vol] 106 mmol/L 98-107 [facility] Color Auto (U)Ordered By: Brian Rodriguez on 04-13-2023 Color (U) Yellow Yellow [facility] Complete Blood Count Auto Di ffon 04-13-2023 Basophils (Bld) [#/Vol] 0.1 10*3/uL Normal 0.0-0.2 [facility] Comment on above: Result Comment: PERF ORMED BY: [place] [address] PATHOLOGIST AUTOMATIC CASTING MACHINE OPERATOR NOAH PINEDA M.D. Performed By: #### C MP, CBC #### [facility] [address] [place] [address] [place] Basophils/100 WBC (Bld) 0.9 % Normal . F [facility] Comment on above: Performed By: #### C MP, CBC #### [facility] [address] [place] [address] [place] Eosinophils (Bld) [#/Vol] 0.3 10*3/uL Normal 0.0-0.45 [facility] Comment on above: Performed By: #### C MP, CBC #### [facility] [address] [place] [address] [place] Eosinophils/100 WBC (Bld) 4.9 % Normal . [facility] Comment on above: Performed By: #### C MP, CBC #### [facility] [address] Erythrocyte distribution width (RBC) [Ratio] 13.9 % Normal 12.0-14.8 [facility] Comment on above: Performed By: #### C MP, CBC #### [facility] [address] Hematocrit (Bld) [Volume fraction] 40.7 % Normal 38.8-50.0 [facility] Comment on above: Performed By: #### C MP, CBC #### [facility] [address] Hemoglobin (Bld) [Mass/Vol] 14.1 g/dL Normal 13.0-17.0 [facility] Comment on above: Performed By: #### C MP, CBC #### [address] Lymphocytes (Bld) [#/Vol] 1.4 10*3/uL Normal 1.00-4.8 [facility] Comment on above: Performed By: #### C MP, CBC #### [address] Lymphocytes/100 WBC (Bld) 19.8 % Normal . [facility] Comment on above: Performed By: #### C MP, CBC #### [address] MCH (RBC) [Entitic mass] 32.0 pg Normal 27.5-35.2 [facility] Comment on above: Performed By: #### C MP, CBC #### [facility] [address] MCV (RBC) [Entitic vol] 92.2 fL Normal 83.5-101 F [facility] Comment on above: Performed By: #### C MP, CBC #### [address] Mean Corpuscular HGB Conc 34.7 g/dL Normal 32.5-35.6 [facility] Comment on above: Performed By: #### C MP, CBC #### [facility] [address] [place] [address] [place] Monocytes (Bld) [#/Vol] 0.5 10*3/uL Normal 0.0-0.8 [facility] Comment on above: Performed By: #### C MP, CBC #### [facility] [address] [place] [address] [place] Monocytes/100 WBC (Bld) 7.1 % Normal . F [facility] Comment on above: Performed By: #### C MP, CBC #### [facility] [address] [place] [address] [place] Neutrophils (Bld) [#/Vol] 4.7 10*3/uL Normal 1.8-7.7 [facility] Comment on above: Performed By: #### C MP, CBC #### [facility] [address] Neutrophils/100 WBC (Bld) 67.3 % Normal . [facility] Comment on above: Performed By: #### C MP, CBC #### [facility] [address] [place] [address] [place] NRBC% 0.1 /100{WBC} Normal 0-0.5 [facility] Comment on above: Performed By: #### C MP, CBC #### [facility] [address] [place] [address] [place] Platelet mean volume (Bld) [Entitic vol] 8.2 fL Normal 6.6-10.1 [facility] Comment on above: Performed By: #### C MP, CBC #### [facility] [address] [place] [address] [place] Platelets (Bld) [#/Vol] 248 10*3/uL Normal 150-450 [facility] Comment on above: Performed By: #### C MP, CBC #### [facility] [address] [place] [address] [place] RBC (Bld) [#/Vol] 4.41 10*6/uL Normal 3.90-5.60 [facility] Comment on above: Performed By: #### C MP, CBC #### [facility] [address] [place] [address] WBC (Bld) [#/Vol] 6.9 10*3/uL Normal 4.1-10.5 [facility] Comment on above: Performed By: #### C MP, CBC #### [facility] [address] [place] [address] Comprehensive Metabolic Pane zack 04-13-2023 Albumin [Mass/Vol] 3.4 g/dL Low 3.5-5.7 [facility] Comment on above: Performed By: #### C MP, CBC #### [address] Albumin/Globulin [Mass ratio] 1.3 {ratio} Normal [facility] Comment on above: Performed By: #### C MP, CBC #### [address] ALP [Catalytic activity/Vol] 152 U/L High 34-104 [facility] Comment on above: Result Comment: PERF ORMED BY: [place] [address] PATHOLOGIST AUTOMATIC CASTING MACHINE OPERATOR NOAH PINEDA M.D. Performed By: #### C MP, CBC #### [address] ALT [Catalytic activity/Vol] 8 U/L Normal 7-52 [facility] Comment on above: Performed By: #### C MP, CBC #### [address] Anion gap [Moles/Vol] 11.4 mmol/L Normal 6.0-15.0 [facility] Comment on above: Performed By: #### C MP, CBC #### [address] AST [Catalytic activity/Vol] 13 U/L Normal 13-39 [facility] Comment on above: Performed By: #### C MP, CBC #### [address] [place] [address] [place] Bilirubin [Mass/Vol] 1.0 mg/dL Normal 0.3-1.0 [facility] Comment on above: Performed By: #### C MP, CBC #### [facility] [address] Calcium [Mass/Vol] 8.9 mg/dL Normal 8.6-10.3 [facility] Comment on above: Performed By: #### C MP, CBC #### [facility] [address] Chloride [Moles/Vol] 106 mmol/L Normal 98-107 [facility] Comment on above: Performed By: #### C MP, CBC #### [facility] [address] CO2 [Moles/Vol] 28.7 mmol/L Normal 21.0-31.0 [facility] Comment on above: Performed By: #### C MP, CBC #### [facility] [address] Creatinine [Mass/Vol] 1.04 mg/dL Normal 0.70-1.30 [facility] Comment on above: Performed By: #### C MP, CBC #### [facility] [address] [place] [address] [place] GFR/1.73 sq M.predicted MDRD (S/P/Bld) [Vol rate/Area] mL/min/{1.73_m2} Normal [facility] Comment on above: Performed By: #### C MP, CBC #### [facility] [address] [place] [address] [place] Globulin (S) [Mass/Vol] 2.7 g/dL Normal [facility] Comment on above: Performed By: #### C MP, CBC #### [facility] [address] [place] [address] [place] Glucose [Mass/Vol] 101 mg/dL High 70-100 [facility] Comment on above: Result Comment: [facility] Glucose Reference Range is dependent on time and content of last meal. Glucose of more than 200 mg/dL in a nonstressed, ambulatory subject supports the diagnosis of Diabetes Mellitus. ADA recommended reference range Performed By: #### C MP, CBC #### [facility] [address] Potassium [Moles/Vol] 3.1 mmol/L Low 3.5-5.1 [facility] Comment on above: Performed By: #### C MP, CBC #### [facility] [address] [place] [address] [place] Protein [Mass/Vol] 6.1 g/dL Low 6.4-8.9 [facility] Comment on above: Performed By: #### C MP, CBC #### [address] Sodium [Moles/Vol] 143 mmol/L Normal 136-145 [facility] Comment on above: Performed By: #### C MP, CBC #### [facility] [address] [place] [address] [place] Urea nitrogen [Mass/Vol] 13 mg/dL Normal 7-25 [facility] Comment on above: Performed By: #### C MP, CBC #### [place] [address] [place] Creatinine [Mass/volume] in Serum or PlasmaOrdered By: Linda Rodriguez on 04-13-2023 Creatinine [Mass/Vol] 1.04 mg/dL 0.70-1.30 [facility] Dipstick and Microscopicon 1 06-14-2022 Appearance (U) Turbid Critically abnormal Clear [facility] Comment on above: Order Comment: Name Collection Type:: Clean-Voided Midstream Performed By: #### C UU, ADDONUAPLUS #### [facility] [address] [place] [address] [place] Bacteria,Urine 4+ High None Seen [facility] Comment on above: Order Comment: Name Collection Type:: Clean-Voided Midstream Performed By: #### C UU, ADDONUAPLUS #### [place] [address] [place] Bilirubin,Urine Negative Normal Negative [facility] Comment on above: Order Comment: Name Collection Type:: Clean-Voided Midstream Performed By: #### C UU, ADDONUAPLUS #### [facility] [address] [place] [address] [place] Color (U) Yellow Normal Yellow [facility] Comment on above: Order Comment: Name Collection Type:: Clean-Voided Midstream Performed By: #### C UU, ADDONUAPLUS #### [facility] [address] [place] [address] [place] Glucose Ql (U) Normal Normal Normal [facility] Comment on above: Order Comment: Name Collection Type:: Clean-Voided Midstream Performed By: #### C UU, ADDONUAPLUS #### [facility] [address] [place] [address] [place] Hyaline Casts,Urine 0-8 Normal 0-8 [facility] Comment on above: Order Comment: Name Collection Type:: Clean-Voided Midstream Performed By: #### C UU, ADDONUAPLUS #### [facility] [address] [place] [address] [place] Ketones Ql (U) Negative Normal Negative [facility] Comment on above: Order Comment: Name Collection Type:: Clean-Voided Midstream Performed By: #### C UU, ADDONUAPLUS #### [facility] [address] [place] [address] [place] Leukocyte esterase Test strip Ql (U) 4+ High Negative [facility] Comment on above: Order Comment: Name Collection Type:: Clean-Voided Midstream Performed By: #### C UU, ADDONUAPLUS #### [facility] [address] [place] [address] [place] Nitrite,Urine Positive High Negative [facility] Comment on above: Order Comment: Name Collection Type:: Clean-Voided Midstream Performed By: #### C UU, ADDONUAPLUS #### [facility] [address] [place] [address] [place] Occult Blood,Urine 3+ High Negative [facility] Comment on above: Order Comment: Name Collection Type:: Clean-Voided Midstream Result Comment: PERF ORMED BY: [place] [address] PATHOLOGIST AUTOMATIC CASTING MACHINE OPERATOR NOAH PINEDA M.D. Performed By: #### C UU, ADDONUAPLUS #### [address] pH (U) [pH] Normal 5.0-9.0 [facility] Comment on above: Order Comment: Name Collection Type:: Clean-Voided Midstream Performed By: #### C UU, ADDONUAPLUS #### [address] Protein (U) [Mass/Vol] 300 mg/dL High Negative Fi [facility] Comment on above: Order Comment: Name Collection Type:: Clean-Voided Midstream Performed By: #### C UU, ADDONUAPLUS #### [facility] [address] [place] [address] RBC,Urine 5-9 High 0-4 [facility] Comment on above: Order Comment: Name Collection Type:: Clean-Voided Midstream Performed By: #### C UU, ADDONUAPLUS #### [address] Specificy [place],Urine 1.018 Normal 1.001-1.030 [facility] Comment on above: Order Comment: Name Collection Type:: Clean-Voided Midstream Performed By: #### C UU, ADDONUAPLUS #### [address] Squamous Epithelial Cell,Urine 0-1 Normal 0-2 [facility] Comment on above: Order Comment: Name Collection Type:: Clean-Voided Midstream Performed By: #### C UU, ADDONUAPLUS #### [address] Triple Phosphate Crystal,Urine 3+ Normal [facility] Comment on above: Order Comment: Name Collection Type:: Clean-Voided Midstream Performed By: #### C UU, ADDONUAPLUS #### [facility] [address] Urobilinogen,Urine Normal Normal Normal [facility] Comment on above: Order Comment: Name Collection Type:: Clean-Voided Midstream Performed By: #### C UU, ADDONUAPLUS #### [facility] [address] WBC,Urine Innumerable High 0-4 [facility] Comment on above: Order Comment: Name Collection Type:: Clean-Voided Midstream Performed By: #### C UU, ADDONUAPLUS #### [facility] [address] [place] [address] Yeast,Urine None Seen Normal None Seen [facility] Comment on above: Order Comment: Name Collection Type:: Clean-Voided Midstream Result Comment: PERF ORMED BY: [place] [address] PATHOLOGIST AUTOMATIC CASTING MACHINE OPERATOR NOAH PINEDA M.D. Performed By: #### C UU, ADDONUAPLUS #### [facility] [address] [place] [address] Eosinophils Auto (Bld) [#/Vo l]Ordered By: Linda Rodriguez on 04-13-2023 Eosinophils (Bld) [#/Vol] 0.3 10*3/uL 0.0-0.45 [facility] Eosinophils/100 WBC Auto (Bl d)Ordered By: Linda Rodriguez on 04-13-2023 Eosinophils/100 WBC (Bld) 4.9 % . [facility] Erythrocyte distribution wid th Auto (RBC) [Ratio]Ordered By: Linda Rodriguez on 04-13-2023 Erythrocyte distribution width (RBC) [Ratio] 13.9 % 12.0-14.8 [facility] Globulin Calc (S) [Mass/Vol] Ordered By: Linda Rodriguez on 04-13-2023 Globulin (S) [Mass/Vol] 2.7 g/dL [facility] Glucose [Mass/volume] in Ser um or PlasmaOrdered By: Linda Rodriguez on 04-13-2023 Glucose [Mass/Vol] 101 mg/dL 70-100 [facility] Comment on above: ADA recommended refe rence rangeRandom Glucose Reference Range is dependent on time and content of last meal. Glucose of more than 200 mg/dL in a nonstressed, ambulatory subject supports the diagnosis of Diabetes Mellitus. Hematocrit Auto (Bld) [Volum e fraction]Ordered By: Linda Rodriguez on 04-13-2023 Hematocrit (Bld) [Volume fraction] 40.7 % 38.8-50.0 [facility] Hemoglobin [Mass/volume] in BloodOrdered By: Linda Rodriguez on 04-13-2023 Hemoglobin (Bld) [Mass/Vol] 14.1 g/dL 13.0-17.0 [facility] Ketones Auto test strip (U) [Mass/Vol]Ordered By: Linda Rodriguez on 04-13-2023 Ketones (U) [Mass/Vol] Negative Negative [facility] - UrinalysisOrder ed By: Linda Rodriguez on 04-13-2023 Hyaline casts LM Ql (Urine sed) 0-8 [LPF] 0-8 [facility] Leukocytes [#/volume] correc teressa for nucleated erythrocytes in Blood by Automated counOrdered By: Linda Rodriguez on 04-13-2023 WBC corrected for nucl RBC Auto (Bld) [#/Vol] 6.9 10*3/uL 4.1-10.5 [facility] Lymphocytes Auto (Bld) [#/Vo l]Ordered By: Linda Rodriguez on 04-13-2023 Lymphocytes (Bld) [#/Vol] 1.4 10*3/uL 1.00-4.8 [facility] Lymphocytes/100 WBC Auto (Bl d)Ordered By: Linda Rodriguez on 04-13-2023 Lymphocytes/100 WBC (Bld) 19.8 % . [facility] MCH Auto (RBC) [Entitic mass ]Ordered By: Linda Rodriguez on 04-13-2023 MCH (RBC) [Entitic mass] 32.0 pg 27.5-35.2 [facility] MCHC Auto (RBC) [Mass/Vol]Or dered By: Linda Rodriguez on 04-13-2023 MCHC (RBC) [Mass/Vol] 34.7 g/dL 32.5-35.6 Fir [facility] MCV Auto (RBC) [Entitic vol] Ordered By: Linda Rodriguez on 04-13-2023 MCV (RBC) [Entitic vol] 92.2 fL 83.5-101 F [facility] Magnesium ammonium phosphate crystal detectionOrdered By: Linda Rodriguez on 04-13-2023 Triple phosphate crystals LM Ql (Urine sed) 3+ [HPF] [facility] Monocytes Auto (Bld) [#/Vol] Ordered By: Linda Rodriguez on 04-13-2023 Monocytes (Bld) [#/Vol] 0.5 10*3/uL 0.0-0.8 [facility] Monocytes/100 WBC Auto (Bld) Ordered By: Linda Rodriguez on 04-13-2023 Monocytes/100 WBC (Bld) 7.1 % . F [facility] Neutrophils Auto (Bld) [#/Vo l]Ordered By: Linda Rodriguez on 04-13-2023 Neutrophils (Bld) [#/Vol] 4.7 10*3/uL 1.8-7.7 [facility] Neutrophils/100 WBC Auto (Bl d)Ordered By: Linda Rodriguez on 04-13-2023 Neutrophils/100 WBC (Bld) 67.3 % . [facility] Nitrite Test strip Ql (U)Ord ered By: Linda Rodriguez on 04-13-2023 Nitrite Ql (U) Positive Negative [facility] No Panel InformationOrdered By: Linda Rodriguez on 04-13-2023 Estimated GFR (CKD-EPI) > 60.0 mL/Min [facility] Creatinine Clearance (Chem N/A [facility] Nucleated erythrocytes [Pres ence] in Blood by Automated countOrdered By: Linda Rodriguez on 04-13-2023 Nucleated RBC Auto Ql (Bld) 0.1 /100{WBC} 0-0.5 [facility] Platelet mean volume Auto (B ld) [Entitic vol]Ordered By: Linda Rodriguez on 04-13-2023 Platelet mean volume (Bld) [Entitic vol] 8.2 fL 6.6-10.1 [facility] Platelets Auto (Bld) [#/Vol] Ordered By: Linda Rodriguez on 04-13-2023 Platelets (Bld) [#/Vol] 248 10*3/uL 150-450 [facility] Potassium [Moles/volume] in Serum or PlasmaOrdered By: Linda Rodriguez on 04-13-2023 Potassium [Moles/Vol] 3.1 mmol/L 3.5-5.1 [facility] Protein Auto test strip (U) [Mass/Vol]Ordered By: Linda Rodriguez on 04-13-2023 Protein (U) [Mass/Vol] 300 mg/dL Negative Fi [facility] Protein [Mass/volume] in Ser um or PlasmaOrdered By: Linda Rodriguez on 04-13-2023 Protein [Mass/Vol] 6.1 g/dL 6.4-8.9 [facility] RBC Auto (Bld) [#/Vol]Ordere d By: Linda Rodriguez on 04-13-2023 RBC (Bld) [#/Vol] 4.41 10*6/uL 3.90-5.60 [facility] Serum or plasma albumin/glob ulin mass ratioOrdered By: Linda Rodriguez on 04-13-2023 Albumin/Globulin [Mass ratio] 1.3 {ratio} [facility] Serum or plasma anion gap de terminationOrdered By: Linda Rodriguez on 04-13-2023 Anion gap [Moles/Vol] 11.4 mmol/L 6.0-15.0 [facility] Sodium [Moles/volume] in Ser um or PlasmaOrdered By: Linda Rodriguez on 04-13-2023 Sodium [Moles/Vol] 143 mmol/L 136-145 [facility] Specific gravity Auto test s trip (U) [Rel density]Ordered By: Linda Rodriguez on 04-13-2023 Specific gravity (U) [Rel density] 1.018 1.001-1.030 [facility] Squamous epithelial cells de tection in urine sediment by light microscopyOrdered By: Linda Rodriguez on 04-13-2023 Epithelial cells.squamous LM Ql (Urine sed) 0-1 [HPF] 0-2 [facility] Urea nitrogen [Mass/volume] in Serum or PlasmaOrdered By: Linda Rodriguez on 04-13-2023 Urea nitrogen [Mass/Vol] 13 mg/dL 7 [facility] Urine Cultureon 04-13-2023 Bacteria identified Cx Nom (U) ORGANISM: Proteus vulgaris group (O:PROVULGRP) [place] Count >100,000 ORGANISM: Providencia rettgeri (O:PRORET) [place] Count 75,000 Aerobic BANG Charge (NMIC56) ----- [...] RESISTANT TO ALL B-LACTAM DRUGS. PERFORMED BY: [facility] [address] [place] [address] PATHOLOGIST AUTOMATIC CASTING MACHINE OPERATOR NOAH PINEDA M.D. [facility] Comment on above: Performed By: #### C UU, ADDONUAPLUS #### [address] Urine bacteria detection by automated methodOrdered By: Linda Rodriguez on 04-13-2023 Bacteria Auto Ql (U) 4+ None Seen [facility] Urine clarity by refractomet ry automatedOrdered By: Linda Rodriguez on 04-13-2023 Clarity Refractometry automated (U) Turbid Clear [facility] Urine culture routineOrdered By: Linda Rodriguez on 04-13-2023 Bacteria identified Cx Nom (U) Proteus vulgaris group [facility] Bacteria identified Cx Nom (U) Providencia rettgeri [facility] Urine glucose measurement by automated test strip (mass/volume)Ordered By: Linda Rodriguez on 04-13-2023 Glucose Auto test strip (U) [Mass/Vol] Normal mg/dL Normal [facility] Urine hemoglobin detection b y automated test stripOrdered By: Linda Rodriguez on 04-13-2023 Hemoglobin Auto test strip Ql (U) 3+ Negative [facility] Urine leukocyte esterase det ection by automated test stripOrdered By: Linda Rodriguez on 04-13-2023 Leukocyte esterase Auto test strip Ql (U) 4+ Negative [facility] Urobilinogen Auto test strip (U) [Mass/Vol]Ordered By: Linda Rodriguez on 04-13-2023 Urobilinogen (U) [Mass/Vol] Normal mg/dL Normal [facility] WBC Auto (Bld) [#/Vol]Ordere d By: Linda Rodriguez on 04-13-2023 WBC (Bld) [#/Vol] 6.9 10*3/uL 4.1-10.5 [facility] Yeast detection in urine sed iment by light microscopyOrdered By: Linda Rodriguez on 04-13-2023 Yeast LM Ql (Urine sed) None seen [HPF] None Se en [facility] pH Auto test strip (U)Ordere d By: Linda Rodriguez on 04-13-2023 pH (U) [pH] 5.0-9.0 [facility] Consultation Noteon 03-30-20 Consultation Note [id number] #1.00TIFF Normal [facility] NM db perf SPECT rest stron 03-24-2023 NM db perf SPECT rest str [facility] [address] Nuclear Medicine Report Signed Patient: Sebastian Diego MR#: [id number] 868 : 1945 Acct:[id number] Age/Sex: 77 / M ADM Date: 03/24/23 Loc: [place] Room: Type: [facility] Attending Dr: Glo Singleton MD Copies to: [...] MD 03/24/231832 Signed By: 03/24/231836 [facility] RAD - CT Reporton 03-13-2023 RAD - CT Report [id number] #1.00TIFF Normal [facility] RAD - Ultrasound Reporton RAD - Ultrasound Report [id number] #1.00TIFF Normal [facility] US arterial duplex LE RTon 1 05-11-2022 US arterial duplex LE RT [facility] [place] [address] Ultrasound Report Signed Patient: Sebastian Diego MR#: [id number] 868 : 1945 Acct:[id number] Age/Sex: 77 / M ADM Date: 03/11/23 Loc: [facility] Room: Type: [facility] Attending Dr: Lnida Rodriguez MD Ordering Provider: Linda Rodriguez MD [...] Linda Rodriguez MD03/11/2023 12:17 PM Dictation Location: [id number] Tech: Osiris Leal Transcribed By: SERGE 03/11/231216 Dictated By: Linda Rodriguez MD 03/11/231215 Signed By: 03/11/231216 [facility] CT angio abdomen pelvison CT angio abdomen pelvis [facility] [place] [address] [place] [address] CT Scan Report Signed Patient: Sebastian Diego MR#: [id number] 868 : 1945 Acct:[id number] Age/Sex: 77 / M ADM Date: 02/26/23 Loc: CT Room: Type: [facility] Attending Dr: Linda Rodriguez MD Copies to: [...] Sykes Jr., D.ORobles02/26/2023 10:51 AM Dictation Location: [place] [address] Transcribed By: [facility] 02/26/23 1051 Dictated By: Jeff Sykes Jr, DO 02/26/23 1036 Signed By: 02/26/23 1051 [facility] Creatinine (Bld) [Mass/Vol]O rdered By: Linda Rodriguez on 02-26-2023 Creatinine [Mass/Vol] 1.1 mg/dL 0.6-1.3 [facility] Comment on above: ER/ESD physician is notified/shown all ISTAT results.Critical values may be confirmed by laboratory testing ifdeemed necessary by ER attending doctor. Consultation Noteon 02-26-20 Consultation Note [id number] #1.00TIFF Normal [facility] Physician Referralon 023 Physician Referral [id number] #1.00TIFF Normal [facility] RAD - MRI Reporton 3 RAD - MRI Report [id number] #1.00TIFF Normal [facility] Creatinine (Bld) [Mass/Vol]O rdered By: Sancho Lee on 02-10-2023 Creatinine [Mass/Vol] 1.1 mg/dL 0.6-1.3 [facility] Comment on above: ER/ESD physician is notified/shown all ISTAT results.Critical values may be confirmed by laboratory testing ifdeemed necessary by ER attending doctor. ISTAT XRay CREon 02-10-2023 Creatinine [Mass/Vol] 1.1 mg/dL Normal 0.6-1.3 [facility] Comment on above: Result Comment: ER/E SD physician is notified/shown all ISTAT results. Critical values may be confirmed by laboratory testing if deemed necessary by ER attending doctor. Performed By: #### I SCRE #### [address] ISTAT GFR > 60.[address] [facility] Comment on above: Result Comment: PERF ORMED BY: [place] [address] PATHOLOGIST AUTOMATIC CASTING MACHINE OPERATOR NOAH PINEDA M.D. Performed By: #### I SCRE #### [facility] [address] [place] [address] MR prostate wo/w conon 02-10 MR prostate wo/w con [facility] [place] [address] [place] [address] MRI Report Signed Patient: Sebastian Diego MR#: [id number] 868 : 1945 Acct:[id number] Age/Sex: 77 / M ADM Date: 02/10/23 Loc: MR Room: Type: [facility] Attending Dr: Sancho Lee MD Copies to: [...] Sykes Jr., D.ORobles02/10/2023 3:47 PM Dictation Location: [place] [address] Transcribed By: [facility] 02/10/23 1547 Dictated By: Jeff Sykes Jr, DO 02/10/23 1534 Signed By: 02/10/[address] [facility] No Panel InformationOrdered By: Sancho Lee on 02-10-2023 Bedside Estimated GFR (eGFR) > 60.0 [facility] Ambulatory Visit Summaryon 0 11-21-2022 Ambulatory [...] 500 mg Tab) potassium chloride (Potassium Chloride (Wew-Nbie-Mux 10) 10 mEq oral tablet, extended release) [...] Mouth Every day Refills: 3 Pickup at [id number] Unchanged aspirin (aspirin 81 mg Oral EC [...] SFGL) 0 Unchanged potassium chloride (Potassium Chloride (Cfw-Ditb-Pkv 10) 10 mEq oral tablet, extended release) Unchanged pregabalin (Lyrica 150 mg Cap) By Mouth 2 times a day Pharmacy Information [id number]: [address], [place] [id number] [phone] Allergies beta blockers (Weakness, Vomiting, Dizziness) Problems [...] tract Straining to void Urine frequency Normal [facility] Lab Reportson 11-21-2022 Lab Reports [id number] #1.00CD:127 Normal [facility] Patient Educationon 11-22-19 Patient Education Oncology Prostate [...] Where to find more information ? The [place] [employer]: www.cancer.org ? [place] [employer]: www.auanet.org Contact a health care [...] adds flu (more content not included)... Normal [facility] Urology Office/Clinic Noteon 11-21-2022 Urology Office/Clinic Note [...] [facility] [address], [place] [address]- Additional Instructions: sched MRI Patient Education Prostate [...] BID metformin 500 mg Tab Potassium Chloride (Jqq-Ttad-Hnv 10) 10 mEq oral tablet, extended release [...] Stroke: Mother (more content not included)... Normal [facility] Comment on above: Result Comment: Elec tronically [...] 500 mg Tab) potassium chloride (Potassium Chloride (Wge-Lkgv-Mbh 10) 10 mEq oral tablet, extended release) [...] [facility] [address] , [place] [address]- Medications What How Much When Instructions Unchanged [...] or concerns Unchanged potassium chloride (Potassium Chloride (Knt-Rulp-Mwb 10) 10 mEq oral tablet, extended release) [...] diagnosed w (more content not included)... Normal [facility] C Urineon 09-24-2022 Bacteria identified Cx Nom [...] Locations R1: This test was performed at: [facility], [address] [place] [address], [facility] , , [facility] Comment on above: Performed By: #### 2 [id number] ####[facility] [id number] [place] [address] Patient Educationon 09-23-19 23 Patient Education Oncology [...] Where to find more information ? The [place] [employer]: www.cancer.org ? [place] [employer]: www.auanet.org Contact a health care [...] adds flu (more content not included)... Normal [facility] PSA, FREE AND TOTAL RATIOon 08-27-2022 % Free PSA 20.8 % Normal [facility] Comment on above: Result Comment: The [...] Performed By: #### P SAFREE #### [facility] [address] [place] [address] Dr. Daniel Hahn Prostate specific Ag [Mass/Vol] 13.5 ng/mL Critically high 0.0-4.0 [facility] Comment on above: Result Comment: [place] e ECLIA methodology. . According to the [place] [employer], Serum PSA should decrease and [...] Performed By: #### P SAFREE #### [facility] [address] [place] [address] Dr. Daniel Hahn PSA, Free 2.81 ng/mL Normal N/A [facility] Comment on above: Result Comment: [place] JACOBO methodology. Performed By: #### P SAFREE #### [facility] [address] [place] [address] Dr. Daniel Hahn CBC AUTO DIFFon 08-25-2022 BASO # 0.1 103/ul Normal 0.0-0.1 [facility] Comment on above: Performed By: #### C BC #### [facility] [address] [place] [address] Dr. Daniel Hahn Basophils/100 WBC (Bld) 0.6 % Normal 0.2-2.0 [facility] Comment on above: Performed By: #### C BC #### [facility] [address] [place] [address] Dr. Daniel Hahn EO # 0.4 103/ul Normal 0.0-0.7 [facility] Comment on above: Performed By: #### C BC #### [facility] [address] [place] [address] Dr. Daniel Hahn Eosinophils/100 WBC (Bld) 5.6 % Normal 0.9-7.0 [facility] Comment on above: Performed By: #### C BC #### [facility] [address] [place] [address] Dr. Daniel Hahn Erythrocyte distribution width (RBC) [Ratio] 13.7 % Normal 11.0-15.0 [facility] Comment on above: Performed By: #### C BC #### [facility] [address] [place] [address] Dr. Daniel Hahn Hematocrit (Bld) [Volume fraction] 47.0 % Normal 42.0-54.0 [facility] Comment on above: Performed By: #### C BC #### [facility] [address] [place] [address] Dr. Daniel Hahn Hemoglobin (Bld) [Mass/Vol] 15.6 g/dL Normal 14.0-18.0 [facility] Comment on above: Performed By: #### C BC #### [facility] [address] [place] [address] Dr. Daniel Hahn IG # 0.02 10e3/ul Normal 0.00-0.03 [facility] Comment on above: Performed By: #### C BC #### [facility] [address] [place] [address] Dr. Daniel Hahn IG % 0.3 % Normal 0.0-0.5 [facility] Comment on above: Performed By: #### C BC #### [facility] [address] [place] [address] Dr. Daniel Hahn LYMPH # 1.8 103/ul Normal 1.2-3.8 [facility] Comment on above: Performed By: #### C BC #### [facility] [address] [place] [address] Dr. Daniel Hahn Lymphocytes/100 WBC (Bld) 22.8 % Normal 20.5-60.0 [facility] Comment on above: Performed By: #### C BC #### [facility] [address] [place] [address] Dr. Daniel Hahn MANUAL DIFF REQ NO Normal [facility] Comment on above: Performed By: #### C BC #### [facility] [address] [place] [address] Dr. Daniel Hahn MCH (RBC) [Entitic mass] 31.5 pg Normal 25.9-34.0 [facility] Comment on above: Performed By: #### C BC #### [facility] [address] [place] [address] Dr. Daniel Hahn MCHC (RBC) [Mass/Vol] 33.2 g/dL Normal 29.9-35.2 [facility] Comment on above: Performed By: #### C BC #### [facility] [address] [place] [address] Dr. Daniel Hahn MCV (RBC) [Entitic vol] 94.8 fL Critically high 80.0-[address] [facility] Comment on above: Performed By: #### C BC #### [facility] [address] [place] [address] Dr. Daniel Hahn MONO # 0.6 103/ul Normal 0.3-0.8 [facility] Comment on above: Performed By: #### C BC #### [facility] [address] [place] [address] Dr. Daniel Hahn Monocytes/100 WBC (Bld) 7.9 % Normal 1.7-12.0 [facility] Comment on above: Performed By: #### C BC #### [facility] [address] [place] [address] Dr. Daniel Hahn NEUT # 4.9 103/ul Normal 1.4-6.5 [facility] Comment on above: Performed By: #### C BC #### [facility] [address] [place] [address] Dr. Daniel Hahn Neutrophils/100 WBC (Bld) 62.8 % Normal 43.0-75.0 [facility] Comment on above: Performed By: #### C BC #### [facility] [address] [place] [address] Dr. Daniel Hahn Platelet mean volume (Bld) [Entitic vol] 9.9 fL Normal 9.5-13.5 [facility] Comment on above: Performed By: #### C BC #### [facility] [address] [place] [address] Dr. Daniel Hahn PLT 199 103/ul Normal 150-450 [facility] Comment on above: Performed By: #### C BC #### [facility] [address] [place] [address] Dr. Daniel Hahn RBC 4.96 106/ul Normal 4.70-6.10 [facility] Comment on above: Performed By: #### C BC #### [facility] [address] [place] [address] Dr. Daniel Hahn WBC 7.7 103/ul Normal 4.0-11.0 [facility] Comment on above: Performed By: #### C BC #### [facility] [address] [place] [address] Dr. Daniel Hahn FREE T4on 08-25-2022 Free T4 [Mass/Vol] 0.94 ng/dL Normal 0.76-1.46 [facility] Comment on above: Performed By: #### P SAFREE #### [facility] [address] [place] [address] Dr. Daniel Hahn GLYCOHEMOGLOBIN A1Con 2022 ADA RECOMMENDATION SEE BELOW Normal [facility] Comment on above: Result Comment: ADA RECOMMENDED LIMIT 4.0 - 6.0 ADA THERAPEUTIC TARGET < 7.0 ACTION SUGGESTED > 7.0 Performed By: #### A 1C #### [facility] [address] [place] [address] Dr. Daniel Hahn Glucose [Mass/Vol] 126 mg/dL Normal [facility] Comment on above: Performed By: #### A 1C #### [facility] [address] [place] [address] Dr. Daniel Hahn HbA1c (Bld) [Mass fraction] 6.0 % Normal 4.5-6.2 [facility] Comment on above: Performed By: #### A 1C #### [facility] [address] [place] [address] Dr. Daniel Hahn LIPID PROFILEon 08-25-2022 CHOL-HDL RATIO NORM SEE BELOW Normal [facility] Comment on above: Result Comment: 3.3 - 4.4 LOW RISK 4.4 - 7.1 AVERAGE RISK 7.1 - 11.0 MODERATE RISK >11.0 HIGH RISK Performed By: #### B MP, LIVER #### [facility] [address] [place] [address] Dr. Dainel Hahn Cholesterol [Mass/Vol] 180 mg/dL Normal <=200 [facility] Comment on above: Performed By: #### B MP, LIVER #### [facility] [address] [place] [address] [address] Daniel Hahn Cholesterol in HDL [Mass/Vol] 36 mg/dL Critically low 40-60 [facility] Comment on above: Performed By: #### B MP, LIVER #### [facility] [address] [place] [address] [address] Daniel Hahn Cholesterol in LDL [Mass/Vol] 85.6 mg/dL Normal [facility] Comment on above: Performed By: #### B MP, LIVER #### [facility] [address] [place] [address] [address] Daniel Hahn Cholesterol.total/Choles terol in HDL [Mass ratio] 5.0 {ratio} Normal [facility] Comment on above: Performed By: #### B MP, LIVER #### [facility] [address] [place] [address] Dr. Daniel Hahn HDL NORMAL > or = 60 mg/dl - LOW CARDIOVASCULAR RISK <40 mg/dl - HIGH CARDIOVASCULAR RISK Normal [facility] Comment on above: Performed By: #### B MP, LIVER #### [facility] [address] [place] [address] Dr. Daniel Hahn LDL CALC NORMAL SEE BELOW Normal [facility] Comment on above: Result Comment: <100 mg/dl OPTIMAL 100 - 129 mg/dl NEAR OR ABOVE OPTIMAL 130 - 159 mg/dl BORDERLINE HIGH 160 - 189 mg/dl HIGH >190 mg/dl VERY HIGH Performed By: #### B MP, LIVER #### [facility] [address] [place] [address] Dr. Daniel Hahn Triglyceride [Mass/Vol] 292 mg/dL Critically high <=150 [facility] Comment on above: Performed By: #### B MP, LIVER #### [facility] [address] [place] [address] Dr. Daniel Hahn VLDL CALC 58.4 mg/dL Normal [facility] Comment on above: Performed By: #### B MP, LIVER #### [facility] [address] [place] [address] Dr. Daniel Hahn PROF 14(COMP METB)on 023 Albumin [Mass/Vol] 3.3 g/dL Critically low 3.4-5.0 Th [facility] Comment on above: Performed By: #### B MP, LIVER #### [facility] [address] [place] [address] Dr. Daniel Hahn Albumin/Globulin [Mass ratio] 1.0 {ratio} Normal [facility] Comment on above: Performed By: #### B MP, LIVER #### [facility] [address] [place] [address] Dr. Daniel Hahn ALP [Catalytic activity/Vol] 108 U/L Normal 46-116 [facility] Comment on above: Performed By: #### B MP, LIVER #### [facility] [address] [place] [address] Dr. Daniel Hahn ALT [Catalytic activity/Vol] 10 U/L Critically low 16-63 [facility] Comment on above: Performed By: #### B MP, LIVER #### [facility] [address] [place] [address] Dr. Daniel Hahn Anion gap [Moles/Vol] 9.1 mmol/L Normal [facility] Comment on above: Performed By: #### B MP, LIVER #### [facility] [address] [place] [address] Dr. Daniel Hahn AST [Catalytic activity/Vol] 12 U/L Critically low 15-37 [facility] Comment on above: Performed By: #### B MP, LIVER #### [facility] [address] [place] [address] Dr. Daniel Hahn Bilirubin [Mass/Vol] 0.6 mg/dL Normal 0.2-1.0 [facility] Comment on above: Performed By: #### B MP, LIVER #### [facility] [address] [place] [address] Dr. Daniel Hahn Calcium [Mass/Vol] 9.1 mg/dL Normal 8.5-10.1 [facility] Comment on above: Performed By: #### B MP, LIVER #### [facility] [address] [place] [address] [address] Daniel Hahn Chloride [Moles/Vol] 105 mmol/L Normal 98-107 [facility] Comment on above: Performed By: #### B MP, LIVER #### [facility] [address] [place] [address] [address] Daniel Hahn CO2 [Moles/Vol] 28.7 mmol/L Normal 21.0-32.0 [facility] Comment on above: Performed By: #### B MP, LIVER #### [facility] [address] [place] [address] [address] Daniel Hahn Creatinine [Mass/Vol] 1.20 mg/dL Normal 0.70-1.30 [facility] Comment on above: Performed By: #### B MP, LIVER #### [facility] [address] [place] [address] Dr. Daniel Hahn EGFR-AF TUNISIAN >60 Normal >=60 [facility] Comment on above: Performed By: #### B MP, LIVER #### [facility] [address] [place] [address] [address] Daniel Hahn EGFR-NON AF TUNISIAN 59 mL/min/1.73m2 Critically low >=60 [facility] Comment on above: Performed By: #### B MP, LIVER #### [facility] [address] [place] [address] Dr. Daniel Hahn Globulin (S) [Mass/Vol] 3.4 g/dL Normal [facility] Comment on above: Performed By: #### B MP, LIVER #### [facility] [address] [place] [address] [address] Daniel Hahn Glucose [Mass/Vol] 115 mg/dL Critically high 74-106 [facility] Comment on above: Performed By: #### B MP, LIVER #### [facility] [address] [place] [address] Dr. Daniel Hahn Potassium [Moles/Vol] 3.8 mmol/L Normal 3.5-5.1 [facility] Comment on above: Performed By: #### B MP, LIVER #### [facility] [address] [place] [address] Dr. Daniel Hahn Protein [Mass/Vol] 6.7 g/dL Normal 6.4-8.2 [facility] Comment on above: Performed By: #### B MP, LIVER #### [facility] [address] [place] [address] Dr. Daniel Hahn Sodium [Moles/Vol] 139 mmol/L Normal 136-145 [facility] Comment on above: Performed By: #### B MP, LIVER #### [facility] [address] [place] [address] Dr. Daniel Hahn Urea nitrogen [Mass/Vol] 17.0 mg/dL Normal 7.0-18.0 [facility] Comment on above: Performed By: #### B MP, LIVER #### [facility] [address] [place] [address] Dr. Daniel Hahn Urea nitrogen/Creatinine [Mass ratio] 14.2 mg/mg Normal [facility] Comment on above: Performed By: #### B MP, LIVER #### [facility] [address] [place] [address] Dr. Daniel Hahn TSHon 08-25-2022 TSH 0.357 uIU/mL Critically low 0.358-3.740 [facility] Comment on above: Performed By: #### B MP, LIVER #### [facility] [address] [place] [address] Dr. Daniel Hahn VITAMIN D 25 OHon 08-25-2022 VIT D 25-OH 58.3 ng/mL Normal [facility] Comment on above: Performed By: #### P SAFREE #### [facility] [address] [place] [address] Dr. Daniel Hahn VIT D RANGES SEE BELOW Normal [facility] Comment on above: Result Comment: <20 ng/mL Vit D deficient 20 - <30 ng/mL Vit D insufficient 30 - 100 ng/mL Vit D sufficient >100 ng/mL Potential Toxicity Performed By: #### P SAFREE #### [facility] [address] [place] [address] Dr. Daniel Hahn CARDIAC EWELINA 3-6on 2 CK [Catalytic activity/Vol] 212 U/L Normal 39-308 [facility] Comment on above: Performed By: #### B IGNACIO, TSH #### [facility] [address] [place] [address] [address] Daniel Hahn CK.MB [Mass/Vol] 3.01 ng/mL Normal <=3.60 [facility] Comment on above: Performed By: #### B IGNACIO, TSH #### [facility] [address] [place] [address] Dr. Daniel Hahn HSTROP 19.0 pg/mL Normal 4.0-76.1 [facility] Comment on above: Result Comment: CUT- OFF POINTS HAVE BEEN ESTABLISHED BASED ON THE FOURTH UNIVERSAL DEFINITIONS OF MYOCARDIAL INFARCTION. THE UPPER REFERENCE LIMIT (URL) OF TROPONIN, DEFINED THE 99TH PERCENTILE OF cTnI DISTRIBUTION IN A REFERENCE POPULATION, HAS BEEN CONFIRMED THE DECISION THRESHOLD FOR SC DIAGNOSIS. Performed By: #### B IGNACIO, TSH #### [facility] [address] [place] [address] Dr. Daniel Hahn CARDIAC EWELINA ADMITon 022 CK [Catalytic activity/Vol] 128 U/L Normal 39-308 [facility] Comment on above: Performed By: #### B IGNACIO, TSH #### [facility] [address] [place] [address] Dr. Daniel Hahn CK.MB [Mass/Vol] 2.01 ng/mL Normal <=3.60 [facility] Comment on above: Performed By: #### B IGNACIO, TSH #### [facility] [address] [place] [address] Dr. Daniel Hahn HSTROP 36.0 pg/mL Normal 4.0-76.1 [facility] Comment on above: Result Comment: CUT- OFF POINTS HAVE BEEN ESTABLISHED BASED ON THE FOURTH UNIVERSAL DEFINITIONS OF MYOCARDIAL INFARCTION. THE UPPER REFERENCE LIMIT (URL) OF TROPONIN, DEFINED THE 99TH PERCENTILE OF cTnI DISTRIBUTION IN A REFERENCE POPULATION, HAS BEEN CONFIRMED THE DECISION THRESHOLD FOR SC DIAGNOSIS. Performed By: #### B IGNACIO, TSH #### [facility] [address] [place] [address] Dr. Daniel Hahn DB 167 ng/mL Critically high 16-96 [facility] Comment on above: Performed By: #### B IGNACIO, TSH #### [facility] [address] [place] [address] Dr. Daniel Hahn CK [Catalytic activity/Vol] 159 U/L Normal 39-308 [facility] Comment on above: Performed By: #### B IGNACIO, TSH #### [facility] [address] [place] [address] Dr. Daniel Hahn CK.MB [Mass/Vol] 2.99 ng/mL Normal <=3.60 [facility] Comment on above: Performed By: #### B IGNACIO, TSH #### [facility] [address] [place] [address] Dr. Daniel Hahn HSTROP 15.8 pg/mL Normal 4.0-76.1 [facility] Comment on above: Result Comment: CUT- OFF POINTS HAVE BEEN ESTABLISHED BASED ON THE FOURTH UNIVERSAL DEFINITIONS OF MYOCARDIAL INFARCTION. THE UPPER REFERENCE LIMIT (URL) OF TROPONIN, DEFINED THE 99TH PERCENTILE OF cTnI DISTRIBUTION IN A REFERENCE POPULATION, HAS BEEN CONFIRMED THE DECISION THRESHOLD FOR SC DIAGNOSIS. Performed By: #### B IGNACIO, TSH #### [facility] [address] [place] [address] Dr. Daniel Hahn DB 307 ng/mL Critically high 16-96 [facility] Comment on above: Performed By: #### B IGNACIO, TSH #### [facility] [address] [place] [address] Dr. Daniel Hahn CBC AUTO DIFFon 01-14-2022 BASO # 0.1 103/ul Normal 0.0-0.1 [facility] Comment on above: Performed By: #### B IGNACIO, TSH #### [facility] [address] [place] [address] Dr. Daniel Hahn Basophils/100 WBC (Bld) 0.6 % Normal 0.2-2.0 [facility] Comment on above: Performed By: #### B IGNACIO, TSH #### [facility] [address] [place] [address] Dr. Daniel Hahn EO # 0.1 103/ul Normal 0.0-0.7 [facility] Comment on above: Performed By: #### B IGNACIO, TSH #### [facility] [address] [place] [address] Dr. Daniel Hahn Eosinophils/100 WBC (Bld) 1.1 % Normal 0.9-7.0 [facility] Comment on above: Performed By: #### B IGNACIO, TSH #### [facility] [address] [place] [address] Dr. Daniel Hahn Erythrocyte distribution width (RBC) [Ratio] 13.6 % Normal 11.0-15.0 [facility] Comment on above: Performed By: #### B IGNACIO, TSH #### [facility] [address] [place] [address] Dr. Daniel Hahn Hematocrit (Bld) [Volume fraction] 43.4 % Normal 42.0-54.0 [facility] Comment on above: Performed By: #### B IGNACIO, TSH #### [facility] [address] [place] [address] Dr. Daniel Hahn Hemoglobin (Bld) [Mass/Vol] 14.1 g/dL Normal 14.0-18.0 [facility] Comment on above: Performed By: #### B IGNACIO, TSH #### [facility] [address] [place] [address] Dr. Daniel Hahn IG # 0.02 10e3/ul Normal 0.00-0.03 [facility] Comment on above: Performed By: #### B IGNACIO, TSH #### [facility] [address] [place] [address] Dr. Daniel Hahn IG % 0.2 % Normal 0.0-0.5 [facility] Comment on above: Performed By: #### B IGNACIO, TSH #### [facility] [address] [place] [address] Dr. Daneil Hahn LYMPH # 2.3 103/ul Normal 1.2-3.8 [facility] Comment on above: Performed By: #### B IGNACIO, TSH #### [facility] [address] [place] [address] Dr. Daniel Hahn Lymphocytes/100 WBC (Bld) 25.5 % Normal 20.5-60.0 [facility] Comment on above: Performed By: #### B MP, TSH #### [facility] [address] [place] [address] Dr. Daniel Hahn MANUAL DIFF REQ NO Normal [facility] Comment on above: Performed By: #### B MP, TSH #### [facility] [address] [place] [address] Dr. Daniel Hahn MCH (RBC) [Entitic mass] 32.0 pg Normal 25.9-34.0 [facility] Comment on above: Performed By: #### B IGNACIO, TSH #### [facility] [address] [place] [address] Dr. Daniel Hahn MCHC (RBC) [Mass/Vol] 32.5 g/dL Normal 29.9-35.2 [facility] Comment on above: Performed By: #### B IGNACIO, TSH #### [facility] [address] [place] [address] Dr. Daniel Hahn MCV (RBC) [Entitic vol] 98.4 fL Critically high 80.0-[address] [facility] Comment on above: Performed By: #### B IGNACIO, TSH #### [facility] [address] [place] [address] Dr. Daniel Hahn MONO # 0.8 103/ul Normal 0.3-0.8 [facility] Comment on above: Performed By: #### B IGNACIO, TSH #### [facility] [address] [place] [address] Dr. Daniel Hahn Monocytes/100 WBC (Bld) 8.8 % Normal 1.7-12.0 [facility] Comment on above: Performed By: #### B MP, TSH #### [facility] [address] [place] [address] Dr. Daniel Hahn NEUT # 5.6 103/ul Normal 1.4-6.5 [facility] Comment on above: Performed By: #### B MP, TSH #### [facility] [address] [address] [address] Daniel Hahn Neutrophils/100 WBC (Bld) 63.8 % Normal 43.0-75.0 [facility] Comment on above: Performed By: #### B MP, TSH #### [facility] [address] [address] [address] Daniel Hahn Platelet mean volume (Bld) [Entitic vol] 10.0 fL Normal 9.5-13.5 [facility] Comment on above: Performed By: #### B MP, TSH #### [facility] [address] [address] [address] Daniel Hahn PLT 212 103/ul Normal 150-450 [facility] Comment on above: Performed By: #### B MP, TSH #### [facility] [address] [address] [address] Daniel Hahn RBC 4.41 106/ul Critically low 4.70-6.10 [facility] Comment on above: Performed By: #### B MP, TSH #### [facility] [address] [address] [address] Daniel Hahn WBC 8.8 103/ul Normal 4.0-11.0 [facility] Comment on above: Performed By: #### B MP, TSH #### [facility] [address] [address] [address] Daniel Hahn BASO # 0.1 103/ul Normal 0.0-0.1 [facility] Comment on above: Performed By: #### B MP, TSH #### [facility] [address] [address] [address] Daniel Hahn Basophils/100 WBC (Bld) 0.6 % Normal 0.2-2.0 [facility] Comment on above: Performed By: #### B MP, TSH #### [facility] [address] [address] [address] Daniel Hahn EO # 0.1 103/ul Normal 0.0-0.7 [facility] Comment on above: Performed By: #### B MP, TSH #### [facility] [address] [place] [address] Dr. Daniel Hahn Eosinophils/100 WBC (Bld) 0.6 % Critically low 0.9-7.0 [facility] Comment on above: Performed By: #### B MP, TSH #### [facility] [address] [place] [address] Dr. Daniel Hahn Erythrocyte distribution width (RBC) [Ratio] 13.3 % Normal 11.0-15.0 [facility] Comment on above: Performed By: #### B MP, TSH #### [facility] [address] [place] [address] Dr. Daniel Hahn Hematocrit (Bld) [Volume fraction] 46.4 % Normal 42.0-54.0 [facility] Comment on above: Performed By: #### B MP, TSH #### [facility] [address] [place] [address] Dr. Daniel Hahn Hemoglobin (Bld) [Mass/Vol] 15.0 g/dL Normal 14.0-18.0 [facility] Comment on above: Performed By: #### B MP, TSH #### [facility] [address] [place] [address] Dr. Daniel Hahn IG # 0.03 10e3/ul Normal 0.00-0.03 [facility] Comment on above: Performed By: #### B MP, TSH #### [facility] [address] [place] [address] Dr. Daniel Hahn IG % 0.4 % Normal 0.0-0.5 [facility] Comment on above: Performed By: #### B MP, TSH #### [facility] [address] [place] [address] Dr. Daniel Hahn LYMPH # 1.3 103/ul Normal 1.2-3.8 [facility] Comment on above: Performed By: #### B MP, TSH #### [facility] [address] [place] [address] Dr. Daniel Hahn Lymphocytes/100 WBC (Bld) 15.6 % Critically low 20.5-60.0 [facility] Comment on above: Performed By: #### B MP, TSH #### [facility] [address] [address] [address] Daniel Hahn MANUAL DIFF REQ NO Normal [facility] Comment on above: Performed By: #### B MP, TSH #### [facility] [address] [address] [address] Daniel Hahn MCH (RBC) [Entitic mass] 31.7 pg Normal 25.9-34.0 [facility] Comment on above: Performed By: #### B MP, TSH #### [facility] [address] [place] [address] Dr. Daniel Hahn MCHC (RBC) [Mass/Vol] 32.3 g/dL Normal 29.9-35.2 [facility] Comment on above: Performed By: #### B MP, TSH #### [facility] [address] [place] [address] Dr. Daniel Hahn MCV (RBC) [Entitic vol] 98.1 fL Critically high 80.0-[address] [facility] Comment on above: Performed By: #### B MP, TSH #### [facility] [address] [place] [address] Dr. Daniel Hahn MONO # 0.5 103/ul Normal 0.3-0.8 [facility] Comment on above: Performed By: #### B MP, TSH #### [facility] [address] [place] [address] Dr. Daniel Hahn Monocytes/100 WBC (Bld) 6.1 % Normal 1.7-12.0 [facility] Comment on above: Performed By: #### B MP, TSH #### [facility] [address] [place] [address] Dr. Daniel Hahn NEUT # 6.4 103/ul Normal 1.4-6.5 [facility] Comment on above: Performed By: #### B MP, TSH #### [facility] [address] [place] [address] Dr. Daniel Hahn Neutrophils/100 WBC (Bld) 76.7 % Critically high 43.0-75.0 [facility] Comment on above: Performed By: #### B MP, TSH #### [facility] [address] [address] [address] Daniel Hahn Platelet mean volume (Bld) [Entitic vol] 9.9 fL Normal 9.5-13.5 [facility] Comment on above: Performed By: #### B MP, TSH #### [facility] [address] [address] [address] Daniel Hahn PLT 247 103/ul Normal 150-450 [facility] Comment on above: Performed By: #### B MP, TSH #### [facility] [address] [address] [address] Daniel Hahn RBC 4.73 106/ul Normal 4.70-6.10 [facility] Comment on above: Performed By: #### B MP, TSH #### [facility] [address] [address] [address] Daniel Hahn WBC 8.4 103/ul Normal 4.0-11.0 [facility] Comment on above: Performed By: #### B MP, TSH #### [facility] [address] [address] [address] Daniel Hahn CTA CHEST WO W [...] MURDOCK Date: 2022-01-14 02:34 Normal [facility] Covid-19 PCR (CVDTBH)on 01-02 SARS-CoV-2 (COVID-19) RNA LEIGHTON+probe Ql (Unsp spec) Not detected Normal NOT DETECTED [facility] Comment on above: Result Comment: When [...] for this test is supported by the [place] [employer] and [employer] Service's declaration that [...] By: #### B MP, TSH #### [facility] [address] [address] [address] Daniel Hahn D-DIMERon 01-14-2022 D-DIMER 2.00 mg/L FEU Critically high <=0.59 [facility] Comment on above: Performed By: #### B MP, TSH #### [facility] [address] [place], [place] [address] Dr. Daniel Hahn D-DIMER COMMENTS SEE BELOW Normal [facility] Comment on above: Result Comment: Incr [...] By: #### B MP, TSH #### [facility] [address] [address] [address] Daniel Hahn ECHO LIMITED STUDYon 022 ECHO LIMITED STUDY Patient: SEBASTIAN DIEGO Exam Date: 01/14/2022 : 1945 Gender:M Ordering : JULEE DUONG Admission #: [id number] Family : DR LEE PARSONS . Order #: [id number] CLICK HERE TO VIEW EXAM ECHOCARDIOGRAM REPORT [...] Nguyen M.D. on 01/14/2022 at 18:[address] [facility] ER URINE PROFILEon 2 Bilirubin Ql (U) Negative Normal NEGATIVE [facility] Comment on above: Performed By: #### E RUR #### [facility] [address] [place] [address] Dr. Daniel Hahn Clarity (U) CLEAR Normal CLEAR [facility] Comment on above: Performed By: #### E RUR #### [facility] [address] [place] [address] Dr. Daniel Hahn Color (U) YELLOW Normal YELLOW [facility] Comment on above: Performed By: #### E RUR #### [facility] [address] [place] [address] Dr. Daniel WADE A micrscopic examination will be performed if indicated. Normal [facility] Comment on above: Performed By: #### E RUR #### [facility] [address] [place] [address] Dr. Daniel Hahn Glucose Ql (U) Negative Normal NEGATIVE [facility] Comment on above: Performed By: #### E RUR #### [facility] [address] [place] [address] Dr. Daniel Hahn Hemoglobin Ql (U) Negative Normal NEGATIVE [facility] Comment on above: Performed By: #### E RUR #### [facility] [address] [place] [address] Dr. Daniel Hahn Ketones Ql (U) Negative Normal NEGATIVE [facility] Comment on above: Performed By: #### E RUR #### [facility] [address] [place] [address] Dr. Daniel Hahn LEUKOCYTES Negative Normal NEGATIVE [facility] Comment on above: Performed By: #### E RUR #### [facility] [address] [place] [address] Dr. Daniel Hahn Nitrite Ql (U) Negative Normal NEGATIVE [facility] Comment on above: Performed By: #### E RUR #### [facility] [address] [place] [address] Dr. Daniel Hahn pH (U) 5.5 [pH] Normal 5-9 [facility] Comment on above: Performed By: #### E RUR #### [facility] [address] [place] [address] Dr. Daniel Hahn SPEC GRAVITY 1.025 Normal 1.005-<=1.[address] [facility] Comment on above: Performed By: #### E RUR #### [facility] [address] [place] [address] Dr. Daniel Hahn UA PROTEIN TRACE Normal NEGATIVE/ TRACE [facility] Comment on above: Performed By: #### E RUR #### [facility] [address] [place] [address] Dr. Daniel Hahn UR MICRO IND NOT INDICATED Normal [facility] Comment on above: Performed By: #### E RUR #### [facility] [address] [place] [address] Dr. Daniel Hahn Urobilinogen Qn (U) 4 {Julien'U}/dL Abnormal 0.2 - 1.0 [facility] Comment on above: Performed By: #### E RUR #### [facility] [address] [place] [address] Dr. Daniel Hahn LACTATE/LACTIC ACIDon 2021 Lactate [Moles/Vol] 2.6 mmol/L Critically high 0.4-1.9 [facility] Comment on above: Performed By: #### B MP, LIVER #### [facility] [address] [place] [address] Dr. Daniel Hahn Lactate [Moles/Vol] 2.6 mmol/L Critically high 0.4-1.9 [facility] Comment on above: Performed By: #### B MP, TSH #### [facility] [address] [place] [address] Dr. Daniel Hahn Lactate [Moles/Vol] 3.7 mmol/L Critically high 0.4-1.9 [facility] Comment on above: Performed By: #### P SAFREE #### [facility] [address] [address] [address] Daniel Hahn LIVER PROFILEon 01-14-2022 Albumin [Mass/Vol] 3.4 g/dL Normal 3.4-5.0 [facility] Comment on above: Performed By: #### B MP, TSH #### [facility] [address] [place] [address] Dr. Daniel Hahn Albumin/Globulin [Mass ratio] 1.1 {ratio} Normal [facility] Comment on above: Performed By: #### B MP, TSH #### [facility] [address] [place] [address] Dr. Daniel Hahn ALP [Catalytic activity/Vol] 100 U/L Normal 46-116 [facility] Comment on above: Performed By: #### B MP, TSH #### [facility] [address] [place] [address] Dr. Daniel Hahn ALT [Catalytic activity/Vol] 21 U/L Normal 16-63 [facility] Comment on above: Performed By: #### B MP, TSH #### [facility] [address] [place] [address] Dr. Daniel Hahn AST [Catalytic activity/Vol] 25 U/L Normal 15-37 [facility] Comment on above: Performed By: #### B MP, TSH #### [facility] [address] [place] [address] Dr. Daniel Hahn BILI, CONJUGATED 0.0 mg/dL Normal 0.0-0.2 [facility] Comment on above: Performed By: #### B MP, TSH #### [facility] [address] [place] [address] Dr. Daniel Hahn Bilirubin [Mass/Vol] 0.7 mg/dL Normal 0.2-1.0 [facility] Comment on above: Performed By: #### B MP, TSH #### [facility] [address] [place] [address] Dr. Daniel Hahn Globulin (S) [Mass/Vol] 3.2 g/dL Normal T [facility] Comment on above: Performed By: #### B MP, TSH #### [facility] [address] [address] [address] Daniel Hahn Protein [Mass/Vol] 6.6 g/dL Normal 6.4-8.2 [facility] Comment on above: Performed By: #### B MP, TSH #### [facility] [address] [address] [address] Daniel Hahn PROF 14(COMP METB)on 022 Albumin [Mass/Vol] 3.1 g/dL Critically low 3.4-5.0 [facility] Comment on above: Performed By: #### C MP #### [facility] [address] [place] [address] Dr. Daniel Hahn Albumin/Globulin [Mass ratio] 1.1 {ratio} Normal [facility] Comment on above: Performed By: #### C MP #### [facility] [address] [place] [address] Dr. Daniel Hahn ALP [Catalytic activity/Vol] 91 U/L Normal 46-116 [facility] Comment on above: Performed By: #### C MP #### [facility] [address] [place] [address] Dr. Daniel Hahn ALT [Catalytic activity/Vol] 17 U/L Normal 16-63 [facility] Comment on above: Performed By: #### C MP #### [facility] [address] [place] [address] Dr. Daniel Hahn Anion gap [Moles/Vol] 13.4 mmol/L Normal [facility] Comment on above: Performed By: #### C MP #### [facility] [address] [address] [address] Daniel Hahn AST [Catalytic activity/Vol] 18 U/L Normal 15-37 [facility] Comment on above: Performed By: #### C MP #### [facility] [address] [place] [address] Dr. Daniel Hahn Bilirubin [Mass/Vol] 0.4 mg/dL Normal 0.2-1.0 [facility] Comment on above: Performed By: #### C MP #### [facility] [address] [address] [address] Daniel Hahn Calcium [Mass/Vol] 8.8 mg/dL Normal 8.5-10.1 [facility] Comment on above: Performed By: #### C MP #### [facility] [address] [address] [address] Daniel Hahn Chloride [Moles/Vol] 109 mmol/L Critically high 98-107 [facility] Comment on above: Performed By: #### C MP #### [facility] [address] [address] [address] Daniel Hahn CO2 [Moles/Vol] 24.2 mmol/L Normal 21.0-32.0 [facility] Comment on above: Performed By: #### C MP #### [facility] [address] [address] [address] Daniel Hahn Creatinine [Mass/Vol] 1.20 mg/dL Normal 0.70-1.30 [facility] Comment on above: Performed By: #### C MP #### [facility] [address] [address] [address] Daniel Hahn EGFR-AF TUNISIAN >60 Normal >=60 [facility] Comment on above: Performed By: #### C MP #### [facility] [address] [address] [address] Daniel Hahn EGFR-NON AF TUNISIAN 59 mL/min/1.73m2 Critically low >=60 [facility] Comment on above: Performed By: #### C MP #### [facility] [address] [address] [address] Daniel Hahn Globulin (S) [Mass/Vol] 2.9 g/dL Normal [facility] Comment on above: Performed By: #### C MP #### [facility] [address] [address] [address] Daniel Hahn Glucose [Mass/Vol] 151 mg/dL Critically high 74-106 [facility] Comment on above: Performed By: #### C MP #### [facility] [address] [address] [address] Daniel Hahn Potassium [Moles/Vol] 3.6 mmol/L Normal 3.5-5.1 [facility] Comment on above: Performed By: #### C MP #### [facility] [address] [address] [address] Daniel Hahn Protein [Mass/Vol] 6.0 g/dL Critically low 6.4-8.2 [facility] Comment on above: Performed By: #### C MP #### [facility] [address] [address] [address] Daniel Hahn Sodium [Moles/Vol] 143 mmol/L Normal 136-145 [facility] Comment on above: Performed By: #### C MP #### [facility] [address] [place] [address] Dr. Daniel Hahn Urea nitrogen [Mass/Vol] 9.0 mg/dL Normal 7.0-18.0 [facility] Comment on above: Performed By: #### C MP #### [facility] [address] [address] [address] Daniel Hahn Urea nitrogen/Creatinine [Mass ratio] 7.5 mg/mg Normal [facility] Comment on above: Performed By: #### C MP #### [facility] [address] [address] [address] Daniel Hahn PROF CHEM 8 (BAS METB)on Anion gap [Moles/Vol] 12.0 mmol/L Normal [facility] Comment on above: Performed By: #### B MP, TSH #### [facility] [address] [address] [address] Daniel Hahn Calcium [Mass/Vol] 8.9 mg/dL Normal 8.5-10.1 [facility] Comment on above: Performed By: #### B MP, TSH #### [facility] [address] [address] [address] Daniel Hahn Chloride [Moles/Vol] 106 mmol/L Normal 98-107 [facility] Comment on above: Performed By: #### B MP, TSH #### [facility] [address] [address] [address] Daniel Hahn CO2 [Moles/Vol] 25.3 mmol/L Normal 21.0-32.0 [facility] Comment on above: Performed By: #### B MP, TSH #### [facility] [address] [address] [address] Daniel Hahn Creatinine [Mass/Vol] 1.50 mg/dL Critically high 0.70-1.30 [facility] Comment on above: Performed By: #### B MP, TSH #### [facility] [address] [address] [address] Daniel Hahn EGFR-AF TUNISIAN 55 mL/min/1.73m2 Critically low >=60 [facility] Comment on above: Performed By: #### B MP, TSH #### [facility] [address] [address] [address] Daniel Hahn EGFR-NON AF TUNISIAN 46 mL/min/1.73m2 Critically low >=60 [facility] Comment on above: Performed By: #### B MP, TSH #### [facility] [address] [address] [address] Daniel Hahn Glucose [Mass/Vol] 213 mg/dL Critically high 74-106 [facility] Comment on above: Performed By: #### B MP, TSH #### [facility] [address] [address] [address] Daniel Hahn Potassium [Moles/Vol] 3.3 mmol/L Critically low 3.5-5.1 [facility] Comment on above: Performed By: #### B MP, TSH #### [facility] [address] [address] [address] Daniel Hahn Sodium [Moles/Vol] 140 mmol/L Normal 136-145 [facility] Comment on above: Performed By: #### B MP, TSH #### [facility] [address] [address] [address] Daniel Hahn Urea nitrogen [Mass/Vol] 11.0 mg/dL Normal 7.0-18.0 [facility] Comment on above: Performed By: #### B MP, TSH #### [facility] [address] [address] [address] Daniel Hahn Urea nitrogen/Creatinine [Mass ratio] 7.3 mg/mg Normal [facility] Comment on above: Performed By: #### B MP, TSH #### [facility] [id number] Daniel Hahn TSHon 01-14-2022 TSH 0.213 uIU/mL Critically low 0.358-3.740 [facility] [place] Comment on above: Performed By: #### B MP, TSH #### [facility] [address] [place], [place] [id number] Dr. Daniel Hahn XR CHEST 1 Von [...] by: ALKA MORENO Date: 2022-01-14 00:[address] [facility] PTH INTACTon 12-25-2021 PTH, Intact 26 pg/mL Normal 15-65 [facility] Comment on above: Performed By: #### B MP, TSH #### [facility] [address] [address] [address] Dnaiel Hahn VIT D 25-OH [employer]on 2021 Vitamin D, 25-Hydroxy 52.5 ng/mL Normal 30.0-100.0 [facility] Comment on above: Result Comment: Megan min D deficiency has been defined by the [place] of [employer] and an Endocrine Society practice guideline as a level of serum 25-OH vitamin D less than 20 ng/mL (1,2). The Endocrine Society went on to further define vitamin D insufficiency as a level between 21 and 29 ng/mL (2). 1. IOM ([place] of [employer]). 2010. Dietary reference intakes for calcium and D. [place]: The National Academies Press. 2. Jesica MF, Chely LUNA, Mandy HORNE, et al. Evaluation, treatment, and prevention of vitamin D deficiency: an Endocrine Society clinical practice guideline. JCEM. 2010; 96(7):1911-30. Performed By: #### B MP, TSH #### [facility] [address] [place] [address] Dr. Daniel Hahn FREE T3on 12-24-2021 FREE T3 2.03 pg/mlL Critically low 2.18-3.98 [facility] Comment on above: Performed By: #### B MP, TSH #### [facility] [address] [place] [address] Dr. Daniel Hahn FREE T4on 12-24-2021 Free T4 [Mass/Vol] 0.95 ng/dL Normal 0.76-1.46 [facility] Comment on above: Performed By: #### F T4 #### [facility] [address] [place] [address] Dr. Daniel Hahn GLYCOHEMOGLOBIN A1Con 2021 ADA RECOMMENDATION SEE BELOW Normal [facility] Comment on above: Result Comment: ADA RECOMMENDED LIMIT 4.0 - 6.0 ADA THERAPEUTIC TARGET < 7.0 ACTION SUGGESTED > 7.0 Performed By: #### B MP, LIVER #### [facility] [address] [place] [address] Dr. Daniel Hahn Glucose [Mass/Vol] 126 mg/dL Normal [facility] Comment on above: Performed By: #### B MP, LIVER #### [facility] [address] [place] [address] Dr. Daniel Hahn HbA1c (Bld) [Mass fraction] 6.0 % Normal 4.5-6.2 [facility] Comment on above: Performed By: #### B MP, LIVER #### [facility] [address] [place] [address] Dr. Daniel Hahn PROF 14(COMP METB)on 022 Albumin [Mass/Vol] 3.3 g/dL Critically low 3.4-5.0 [facility] Comment on above: Performed By: #### B MP, TSH #### [facility] [address] [address] [address] Daniel Hahn Albumin/Globulin [Mass ratio] 1.0 {ratio} Normal [facility] Comment on above: Performed By: #### B MP, TSH #### [facility] [address] [address] [address] Daniel Hahn ALP [Catalytic activity/Vol] 96 U/L Normal 46-116 [facility] Comment on above: Performed By: #### B MP, TSH #### [facility] [address] [address] [address] Daniel Hahn ALT [Catalytic activity/Vol] 15 U/L Critically low 16-63 [facility] Comment on above: Performed By: #### B MP, TSH #### [facility] [address] [place] [address] Dr. Daniel Hahn Anion gap [Moles/Vol] 7.4 mmol/L Normal [facility] Comment on above: Performed By: #### B MP, TSH #### [facility] [address] [place] [address] Dr. Daniel Hahn AST [Catalytic activity/Vol] 16 U/L Normal 15-37 [facility] Comment on above: Performed By: #### B MP, TSH #### [facility] [address] [place] [address] Dr. Daniel Hahn Bilirubin [Mass/Vol] 0.6 mg/dL Normal 0.2-1.0 [facility] Comment on above: Performed By: #### B MP, TSH #### [facility] [address] [place] [address] Dr. Daniel Hahn Calcium [Mass/Vol] 9.0 mg/dL Normal 8.5-10.1 [facility] Comment on above: Performed By: #### B MP, TSH #### [facility] [address] [place] [address] Dr. Daniel Hahn Chloride [Moles/Vol] 107 mmol/L Normal 98-107 [facility] Comment on above: Performed By: #### B MP, TSH #### [facility] [address] [address] [address] Daniel Hahn CO2 [Moles/Vol] 32.8 mmol/L Critically high 21.0-32.0 [facility] Comment on above: Performed By: #### B MP, TSH #### [facility] [address] [address] [address] Daniel Hahn Creatinine [Mass/Vol] 1.06 mg/dL Normal 0.70-1.30 [facility] Comment on above: Performed By: #### B MP, TSH #### [facility] [address] [address] [address] Daniel Hahn EGFR-AF TUNISIAN >60 Normal >=60 [facility] Comment on above: Performed By: #### B IGNACIO, TSH #### [facility] [address] [place] [address] Dr. Daniel Hahn EGFR-NON AF TUNISIAN >60 Normal >=60 [facility] Comment on above: Performed By: #### B IGNACIO, TSH #### [facility] [address] [address] [address] Daniel Hahn Globulin (S) [Mass/Vol] 3.2 g/dL Normal [facility] Comment on above: Performed By: #### B IGNACIO, TSH #### [facility] [address] [place] [address] Dr. Daniel Hahn Glucose [Mass/Vol] 148 mg/dL Critically high 74-106 [facility] Comment on above: Performed By: #### B IGNACIO, TSH #### [facility] [address] [address] [address] Daniel Hahn Potassium [Moles/Vol] 4.2 mmol/L Normal 3.5-5.1 [facility] Comment on above: Performed By: #### B MP, TSH #### [facility] [address] [address] [address] Daniel Hahn Protein [Mass/Vol] 6.5 g/dL Normal 6.4-8.2 [facility] Comment on above: Performed By: #### B IGNACIO, TSH #### [facility] [address] [address] [address] Daniel Hahn Sodium [Moles/Vol] 143 mmol/L Normal 136-145 [facility] Comment on above: Performed By: #### B MP, TSH #### [facility] [address] [address] [address] Daniel Hahn Urea nitrogen [Mass/Vol] 15.0 mg/dL Normal 7.0-18.0 [facility] Comment on above: Performed By: #### B MP, TSH #### [facility] [address] [address] [address] Daniel Hahn Urea nitrogen/Creatinine [Mass ratio] 14.2 mg/mg Normal [facility] Comment on above: Performed By: #### B MP, TSH #### [facility] [address] [place] [address] Dr. Daniel Hahn TSHon 12-24-2021 TSH 0.409 uIU/mL Normal 0.358-3.740 [facility] Comment on above: Performed By: #### P SAFREE #### [facility] [address] [place] [address] Dr. Daniel Hahn XR KUB 1 VIEWon [...] by: CAROLINE BLOUNT Date: 2021-12-24 17:[address] [facility] XR TSPINE 3 VIEWSon 12-25-19 22 [...] BLOUNT Date: 2021-12-24 18:05 Normal [facility] XR KUB 1 VIEWon 10-23-2021 XR [...] MIN Date: 2021-10-23 07:19 Normal [facility] UA RANDOM W/MICROSCOPICon BACTERIA TRACE Abnormal NONE SEEN [facility] Comment on above: Performed By: #### B MP, LIVER #### [facility] [address] [place] [address] Dr. Daniel Hahn Bilirubin Ql (U) Negative Normal NEGATIVE [facility] Comment on above: Performed By: #### B MP, LIVER #### [facility] [address] [address] [address] Daniel Hahn CAST NONE SEEN Normal NONE SEEN [facility] Comment on above: Performed By: #### B MP, LIVER #### [facility] [address] [address] [address] Daniel Hahn Clarity (U) CLEAR Normal CLEAR [facility] Comment on above: Performed By: #### B MP, LIVER #### [facility] [address] [place] [address] Dr. Daniel Hahn Color (U) YELLOW Normal YELLOW [facility] Comment on above: Performed By: #### B MP, LIVER #### [facility] [address] [place] [address] Dr. Daniel Hahn Crystals LM Nom (Urine sed) SEEN Abnormal NONE SEEN [facility] Comment on above: Performed By: #### B MP, LIVER #### [facility] [address] [place] [address] Dr. Daniel Hahn Epithelial cells LM Ql (Urine sed) RARE Normal NONE SEEN /RARE [facility] Comment on above: Performed By: #### B MP, LIVER #### [facility] [address] [place] [address] Dr. Daniel Hahn Glucose Ql (U) 100 mg/dl Abnormal NEGATIVE [facility] Comment on above: Performed By: #### B MP, LIVER #### [facility] [address] [place] [address] Dr. Daniel Hahn Hemoglobin Ql (U) Negative Normal NEGATIVE [facility] Comment on above: Performed By: #### B MP, LIVER #### [facility] [address] [place] [address] Dr. Daniel Hahn Ketones Ql (U) Negative Normal NEGATIVE [facility] Comment on above: Performed By: #### B MP, LIVER #### [facility] [address] [place] [address] Dr. Daniel Hahn LEUKOCYTES Negative Normal NEGATIVE [facility] Comment on above: Performed By: #### B MP, LIVER #### [facility] [address] [place] [address] Dr. Daniel Hahn MUCOUS MODERATE Abnormal NONE SEEN [facility] Comment on above: Performed By: #### B MP, LIVER #### [facility] [address] [place] [address] Dr. Daniel Hahn Nitrite Ql (U) Negative Normal NEGATIVE [facility] Comment on above: Performed By: #### B MP, LIVER #### [facility] [address] [place] [address] Dr. Daniel Hahn pH (U) 6.0 [pH] Normal 5-9 [facility] Comment on above: Performed By: #### B MP, LIVER #### [facility] [address] [place] [address] Dr. Daniel Hahn RBC 10-20 Abnormal 0-2 [facility] Comment on above: Performed By: #### B MP, LIVER #### [facility] [address] [place] [address] Dr. Daniel Hahn SPEC GRAVITY 1.020 Normal 1.005-<=1.[address] [facility] Comment on above: Performed By: #### B MP, LIVER #### [facility] [address] [place] [address] Dr. Daniel Hahn UA PROTEIN Negative Normal NEGATIVE/ TRACE [facility] Comment on above: Performed By: #### B MP, LIVER #### [facility] [address] [place] [address] Dr. Daniel Hahn Urobilinogen Qn (U) 8 {Juilen'U}/dL Abnormal 0.2 - 1.0 [facility] Comment on above: Performed By: #### B MP, LIVER #### [facility] [address] [place] [address] Dr. Daniel Hahn WBC NONE SEEN Normal NONE SEEN [facility] Comment on above: Performed By: #### B MP, LIVER #### [facility] [address] [place] [address] Dr. Daniel Hahn LIVER PROFILEon 09-26-2021 Albumin [Mass/Vol] 3.3 g/dL Critically low 3.4-5.0 [facility] Comment on above: Performed By: #### B MP, LIVER #### [facility] [address] [place] [address] Dr. Daniel Hahn Albumin/Globulin [Mass ratio] 1.0 {ratio} Normal [facility] Comment on above: Performed By: #### B MP, LIVER #### [facility] [address] [place] [address] Dr. Daniel Hahn ALP [Catalytic activity/Vol] 102 U/L Normal 46-116 [facility] Comment on above: Performed By: #### B MP, LIVER #### [facility] [address] [place] [address] Dr. Daniel Hahn ALT [Catalytic activity/Vol] 19 U/L Normal 16-63 [facility] Comment on above: Performed By: #### B MP, LIVER #### [facility] [address] [place] [address] Dr. Daniel Hahn AST [Catalytic activity/Vol] 15 U/L Normal 15-37 [facility] Comment on above: Performed By: #### B MP, LIVER #### [facility] [address] [place] [address] Dr. Daniel Hahn BILI, CONJUGATED 0.3 mg/dL Critically high 0.0-0.2 [facility] Comment on above: Performed By: #### B MP, LIVER #### [facility] [address] [place] [address] Dr. Daniel Hahn Bilirubin [Mass/Vol] 0.9 mg/dL Normal 0.2-1.0 [facility] Comment on above: Performed By: #### B MP, LIVER #### [facility] [address] [place] [address] Dr. Daniel Hahn Globulin (S) [Mass/Vol] 3.2 g/dL Normal T [facility] Comment on above: Performed By: #### B MP, LIVER #### [facility] [address] [place] [address] Dr. Daniel Hahn Protein [Mass/Vol] 6.5 g/dL Normal 6.4-8.2 [facility] Comment on above: Performed By: #### B MP, LIVER #### [facility] [address] [place] [address] Dr. Daniel Hahn PROF CHEM 8 (BAS METB)on Anion gap [Moles/Vol] 10.2 mmol/L Normal [facility] Comment on above: Performed By: #### B MP, LIVER #### [facility] [address] [place] [address] Dr. Daniel Hahn Calcium [Mass/Vol] 9.0 mg/dL Normal 8.5-10.1 [facility] Comment on above: Performed By: #### B MP, LIVER #### [facility] [address] [address] [address] Daniel Hahn Chloride [Moles/Vol] 104 mmol/L Normal 98-107 [facility] Comment on above: Performed By: #### B MP, LIVER #### [facility] [address] [place] [address] Dr. Daniel Hahn CO2 [Moles/Vol] 28.8 mmol/L Normal 21.0-32.0 [facility] Comment on above: Performed By: #### B MP, LIVER #### [facility] [address] [place] [address] Dr. Daniel Hahn Creatinine [Mass/Vol] 1.11 mg/dL Normal 0.70-1.30 [facility] Comment on above: Performed By: #### B MP, LIVER #### [facility] [address] [place] [address] Dr. Daniel Hahn EGFR-AF TUNISIAN >60 Normal >=60 [facility] Comment on above: Performed By: #### B MP, LIVER #### [facility] [address] [place] [address] Dr. Daniel Hahn EGFR-NON AF TUNISIAN >60 Normal >=60 [facility] Comment on above: Performed By: #### B MP, LIVER #### [facility] [address] [place] [address] Dr. Daniel Hahn Glucose [Mass/Vol] 179 mg/dL Critically high 74-106 [facility] Comment on above: Performed By: #### B MP, LIVER #### [facility] [address] [place] [address] Dr. Daniel Hahn Potassium [Moles/Vol] 4.0 mmol/L Normal 3.5-5.1 [facility] Comment on above: Performed By: #### B MP, LIVER #### [facility] [address] [place] [address] Dr. Daniel Hahn Sodium [Moles/Vol] 139 mmol/L Normal 136-145 [facility] Comment on above: Performed By: #### B MP, LIVER #### [facility] [address] [place] [address] Dr. Daniel Hahn Urea nitrogen [Mass/Vol] 15.0 mg/dL Normal 7.0-18.0 [facility] Comment on above: Performed By: #### B MP, LIVER #### [facility] [address] [place] [address] Dr. Daniel Hahn Urea nitrogen/Creatinine [Mass ratio] 13.5 mg/mg Normal [facility] Comment on above: Performed By: #### B MP, LIVER #### [facility] [address] [place] [address] Dr. Daniel Hahn CBC AUTO DIFFon 09-10-2021 BASO # 0.1 103/ul Normal 0.0-0.1 [facility] Comment on above: Performed By: #### P SAFREE #### [facility] [address] [place] [address] Dr. Daniel Hahn Basophils/100 WBC (Bld) 1.1 % Normal 0.2-2.0 [facility] Comment on above: Performed By: #### P SAFREE #### [facility] [address] [place] [address] Dr. Daniel Hahn EO # 0.3 103/ul Normal 0.0-0.7 [facility] Comment on above: Performed By: #### P SAFREE #### [facility] [address] [place] [address] Dr. Daniel Hahn Eosinophils/100 WBC (Bld) 4.1 % Normal 0.9-7.0 [facility] Comment on above: Performed By: #### P SAFREE #### [facility] [address] [place] [address] Dr. Daniel Hahn Erythrocyte distribution width (RBC) [Ratio] 13.6 % Normal 11.0-15.0 [facility] Comment on above: Performed By: #### P SAFREE #### [facility] [address] [place] [address] Dr. Daniel Hahn Hematocrit (Bld) [Volume fraction] 49.2 % Normal 42.0-54.0 [facility] Comment on above: Performed By: #### P SAFREE #### [facility] [address] [address] [address] Daniel Hahn Hemoglobin (Bld) [Mass/Vol] 16.1 g/dL Normal 14.0-18.0 [facility] Comment on above: Performed By: #### P SAFREE #### [facility] [address] [address] [address] Daniel Hahn IG # 0.02 10e3/ul Normal 0.00-0.03 [facility] Comment on above: Performed By: #### P SAFREE #### [facility] [address] [address] [address] Daniel Hahn IG % 0.2 % Normal 0.0-0.5 [facility] Comment on above: Performed By: #### P SAFREE #### [facility] [address] [place] [address] Dr. Daniel Hahn LYMPH # 2.3 103/ul Normal 1.2-3.8 [facility] Comment on above: Performed By: #### P SAFREE #### [facility] [address] [place] [address] Dr. Daniel Hahn Lymphocytes/100 WBC (Bld) 27.6 % Normal 20.5-60.0 [facility] Comment on above: Performed By: #### P SAFREE #### [facility] [address] [place] [address] Dr. Daniel Hahn MANUAL DIFF REQ NO Normal [facility] Comment on above: Performed By: #### P SAFREE #### [facility] [address] [place] [address] Dr. Daniel Hahn MCH (RBC) [Entitic mass] 31.4 pg Normal 25.9-34.0 [facility] Comment on above: Performed By: #### P SAFREE #### [facility] [address] [address] [address] Daniel Hahn MCHC (RBC) [Mass/Vol] 32.7 g/dL Normal 29.9-35.2 [facility] Comment on above: Performed By: #### P SAFREE #### [facility] [address] [address] [address] Daniel Hahn MCV (RBC) [Entitic vol] 96.1 fL Critically high 80.0-[address] [facility] Comment on above: Performed By: #### P SAFREE #### [facility] [address] [place] [address] Dr. Daniel Hahn MONO # 0.6 103/ul Normal 0.3-0.8 [facility] Comment on above: Performed By: #### P SAFREE #### [facility] [address] [place] [address] Dr. Daniel Hahn Monocytes/100 WBC (Bld) 7.8 % Normal 1.7-12.0 [facility] Comment on above: Performed By: #### P SAFREE #### [facility] [address] [place] [address] Dr. Daniel Hahn NEUT # 4.9 103/ul Normal 1.4-6.5 [facility] Comment on above: Performed By: #### P SAFREE #### [facility] [address] [place] [address] Dr. Daniel Hahn Neutrophils/100 WBC (Bld) 59.2 % Normal 43.0-75.0 [facility] Comment on above: Performed By: #### P SAFREE #### [facility] [address] [place] [address] Dr. Daniel Hahn Platelet mean volume (Bld) [Entitic vol] 10.4 fL Normal 9.5-13.5 [facility] Comment on above: Performed By: #### P SAFREE #### [facility] [address] [place] [address] Dr. Daniel Hahn PLT 284 103/ul Normal 150-450 [facility] Comment on above: Performed By: #### P SAFREE #### [facility] [address] [place] [address] Dr. Daniel Hahn RBC 5.12 106/ul Normal 4.70-6.10 [facility] Comment on above: Performed By: #### P SAFREE #### [facility] [address] [address] [address] Daniel Hahn WBC 8.2 103/ul Normal 4.0-11.0 [facility] Comment on above: Performed By: #### P SAFREE #### [facility] [address] [place] [address] Dr. Daniel Hahn FREE T4on 09-10-2021 Free T4 [Mass/Vol] 1.28 ng/dL Normal 0.76-1.46 [facility] Comment on above: Performed By: #### B MP, LIVER #### [facility] [address] [place] [address] Dr. Daniel Hahn LIVER PROFILEon 09-10-2021 Albumin [Mass/Vol] 3.7 g/dL Normal 3.4-5.0 [facility] Comment on above: Performed By: #### P SAFREE #### [facility] [address] [place] [address] Dr. Daniel Hahn Albumin/Globulin [Mass ratio] 1.1 {ratio} Normal [facility] Comment on above: Performed By: #### P SAFREE #### [facility] [address] [place] [address] Dr. Daniel Hahn ALP [Catalytic activity/Vol] 120 U/L Critically high 46-116 [facility] Comment on above: Performed By: #### P SAFREE #### [facility] [address] [place] [address] Dr. Daniel Hahn ALT [Catalytic activity/Vol] 18 U/L Normal 16-63 [facility] Comment on above: Performed By: #### P SAFREE #### [facility] [address] [place] [address] Dr. Daniel Hahn AST [Catalytic activity/Vol] 19 U/L Normal 15-37 [facility] Comment on above: Performed By: #### P SAFREE #### [facility] [address] [place] [address] Dr. Daniel Hahn BILI, CONJUGATED 0.3 mg/dL Critically high 0.0-0.2 [facility] Comment on above: Performed By: #### P SAFREE #### [facility] [address] [address] [address] Daniel Hahn Bilirubin [Mass/Vol] 1.0 mg/dL Normal 0.2-1.0 [facility] Comment on above: Performed By: #### P SAFREE #### [facility] [address] [address] [address] Daniel Hahn Globulin (S) [Mass/Vol] 3.4 g/dL Normal T [facility] Comment on above: Performed By: #### P SAFREE #### [facility] [address] [place] [address] Dr. Daniel Hahn Protein [Mass/Vol] 7.1 g/dL Normal 6.4-8.2 [facility] Comment on above: Performed By: #### P SAFREE #### [facility] [address] [place] [address] Dr. Daniel Hahn PROF CHEM 8 (BAS METB)on Anion gap [Moles/Vol] 12.4 mmol/L Normal [facility] Comment on above: Performed By: #### B MP, TSH #### [facility] [address] [place] [address] Dr. Daniel Hahn Calcium [Mass/Vol] 9.2 mg/dL Normal 8.5-10.1 [facility] Comment on above: Performed By: #### B MP, TSH #### [facility] [address] [place] [address] Dr. Daniel Hahn Chloride [Moles/Vol] 103 mmol/L Normal 98-107 [facility] Comment on above: Performed By: #### B MP, TSH #### [facility] [address] [place] [address] Dr. Daniel Hahn CO2 [Moles/Vol] 28.9 mmol/L Normal 21.0-32.0 [facility] Comment on above: Performed By: #### B MP, TSH #### [facility] [address] [place] [address] Dr. Daniel Hahn Creatinine [Mass/Vol] 1.04 mg/dL Normal 0.70-1.30 [facility] Comment on above: Performed By: #### B MP, TSH #### [facility] [address] [address] [address] Daniel Hahn EGFR-AF TUNISIAN >60 Normal >=60 [facility] Comment on above: Performed By: #### B MP, TSH #### [facility] [address] [address] [address] Daniel Hahn EGFR-NON AF TUNISIAN >60 Normal >=60 [facility] Comment on above: Performed By: #### B MP, TSH #### [facility] [address] [address] [address] Daniel Hahn Glucose [Mass/Vol] 92 mg/dL Normal 74-106 [facility] Comment on above: Performed By: #### B MP, TSH #### [facility] [address] [address] [address] Daniel Hahn Potassium [Moles/Vol] 3.3 mmol/L Critically low 3.5-5.1 [facility] Comment on above: Performed By: #### B MP, TSH #### [facility] [address] [address] [address] Daniel Hahn Sodium [Moles/Vol] 141 mmol/L Normal 136-145 [facility] Comment on above: Performed By: #### B MP, TSH #### [facility] [address] [place] [address] Dr. Daniel Hahn Urea nitrogen [Mass/Vol] 12.0 mg/dL Normal 7.0-18.0 [facility] Comment on above: Performed By: #### B MP, TSH #### [facility] [address] [address] [address] Daniel Hahn Urea nitrogen/Creatinine [Mass ratio] 11.5 mg/mg Normal [facility] Comment on above: Performed By: #### B MP, TSH #### [facility] [address] [address] [address] Daniel Hahn TSHon 09-10-2021 TSH 0.148 uIU/mL Critically low 0.358-3.740 [facility] Comment on above: Performed By: #### B MP, TSH #### [facility] [address] [place] [address] Dr. Daniel Hahn TSH RANGE SEE BELOW Normal [facility] Comment on above: Result Comment: <0.3 4 UIU/ml HYPERTHYROID 0.34-5.60 UIU/ml EUTHYROID >5.60 UIU/ml HYPOTHYROID Performed By: #### B MP, TSH #### [facility] [address] [place] [address] Dr. Daniel Hahn UA (CLEAN/CATCH) PRIMARY CARE PROVIDER/MICRO I F IND.on 09-10-2021 Bilirubin Ql (U) SMALL Abnormal NEGATIVE [facility] Comment on above: Performed By: #### B MP, TSH #### [facility] [address] [place] [address] Dr. Daniel Hahn Clarity (U) CLEAR Normal CLEAR [facility] Comment on above: Performed By: #### B MP, TSH #### [facility] [address] [place] [address] Dr. Daniel Hahn Color (U) DK. YELLOW Normal YELLOW [facility] Comment on above: Performed By: #### B MP, TSH #### [facility] [address] [place] [address] Dr. Daniel Hahn Glucose Ql (U) Negative Normal NEGATIVE [facility] Comment on above: Performed By: #### B MP, TSH #### [facility] [address] [place] [address] Dr. Daniel Hahn Hemoglobin Ql (U) Negative Normal NEGATIVE [facility] Comment on above: Performed By: #### B MP, TSH #### [facility] [address] [place] [address] Dr. Daniel Hahn Ketones Ql (U) Negative Normal NEGATIVE [facility] Comment on above: Performed By: #### B MP, TSH #### [facility] [address] [place] [address] Dr. Daniel Hahn LEUKOCYTES Negative Normal NEGATIVE [facility] Comment on above: Performed By: #### B MP, TSH #### [facility] [address] [place] [address] Dr. Daniel Hahn Nitrite Ql (U) Negative Normal NEGATIVE [facility] Comment on above: Performed By: #### B MP, TSH #### [facility] [address] [place] [address] Dr. Daniel Hahn pH (U) 6.0 [pH] Normal 5-9 [facility] Comment on above: Performed By: #### B MP, TSH #### [facility] [address] [address] [address] Daniel Hahn SPEC GRAVITY 1.025 Normal 1.005-<=1.[address] [facility] Comment on above: Performed By: #### B MP, TSH #### [facility] [address] [place] [address] Dr. Daniel Hahn UA PROTEIN TRACE Normal NEGATIVE/ TRACE [facility] Comment on above: Performed By: #### B IGNACIO, TSH #### [facility] [address] [place] [address] Dr. Daniel Hahn UR MICRO IND NOT INDICATED Normal [facility] Comment on above: Performed By: #### B IGNACIO, TSH #### [facility] [address] [place] [address] Dr. Daniel Hahn Urobilinogen Qn (U) 2.0 {Julien'U}/dL Abnormal 0.2 - 1. 0 [facility] Comment on above: Performed By: #### B IGNACIO, TSH #### [facility] [address] [place] [address] Dr. Daniel Hahn Vital Signs Date Time Vital Sign Value Performing Clinician Facility 05-19-2023 12:15-0500 Body temperature 96 [degF] Addie Hunt Other [facility] Other 05-19-2023 12:15-0500 Body weight 63.96 kg Addie Hunt Other [facility] Other 05-19-2023 12:15-0500 Diastolic blood pressure 56 mm[Hg] Addie Hunt Other [facility] Other 05-19-2023 12:15-0500 Systolic blood pressure 90 mm[Hg] Addie Hutn Other [facility] Other 05-14-2023 11:15-0500 Body temperature 97.8 [degF] Addie Hunt Other [facility] Other 05-14-2023 11:15-0500 Body weight 72.58 kg Addie Hunt Other [facility] Other 05-14-2023 11:15-0500 Diastolic blood pressure 82 mm[Hg] Addie Hunt Other [facility] Other 05-14-2023 11:15-0500 SaO2% (BldA) [Mass fraction] 98 % Addie Hunt Other [facility] Other 05-14-2023 11:15-0500 Systolic blood pressure 156 mm[Hg] Addie Hunt Other [facility] Other 04-24-2023 11:17-0500 Body temperature 98.7 [degF] Carmelita Aichholz Work Phone: [facility] 04-24-2023 11:17-0500 Diastolic blood pressure 73 mm[Hg] Carmelita Aichholz Work Phone: [facility] 04-24-2023 11:17-0500 Heart rate 77 /min Carmelita Aichholz Work Phone: [facility] 04-24-2023 11:17-0500 Respiratory rate 20 /min Carmelita Aichholz Work Phone: [facility] 04-24-2023 11:17-0500 SaO2% (BldA) [Mass fraction] 91 % Carmelita Aichholz Work Phone: [facility] 04-24-2023 11:17-0500 Systolic blood pressure 145 mm[Hg] Carmelita Aichholz Work Phone: [facility] 04-23-2023 06:26-0500 Body weight 74.3 kg Carmelita Aichholz Work Phone: [facility] 04-23-2023 03:28-0500 Inhaled oxygen flow rate 2 L/min Carmelita Aichholz Work Phone: [facility] 04-20-2023 09:46-0500 Body height 162.56 cm Carmelita Aichholz Work Phone: [facility] 04-20-2023 09:46-0500 Body mass index (BMI) [Ratio] 27.6 kg/m2 Carmelita Aichholz Work Phone: [facility] 04-17-2023 16:49-0500 Body temperature 99.5 [degF] Carmelita Aichholz Work Phone: [facility] 04-17-2023 16:49-0500 Diastolic blood pressure 79 mm[Hg] Carmelita Aichholz Work Phone: [facility] 04-17-2023 16:49-0500 Heart rate 86 /min Carmelita Aichholz Work Phone: [facility] 04-17-2023 16:49-0500 Respiratory rate 20 /min Carmelita Aichholz Work Phone: [facility] 04-17-2023 16:49-0500 SaO2% (BldA) [Mass fraction] 93 % Carmelita Aichholz Work Phone: [facility] 04-17-2023 16:49-0500 Systolic blood pressure 120 mm[Hg] Carmelita Aichholz Work Phone: [facility] 04-17-2023 16:48-0500 Body height 162.56 cm Carmelita Aichholz Work Phone: [facility] 04-17-2023 16:48-0500 Body weight 73.93 kg Carmelita Aichholz Work Phone: [facility] 03-24-2023 11:45-0500 Diastolic blood pressure 100 mm[Hg] Carmelita Aichholz Work Phone: [facility] 03-24-2023 11:45-0500 Heart rate 68 /min Carmelita Aichholz Work Phone: [facility] 03-24-2023 11:45-0500 Systolic blood pressure 162 mm[Hg] Carmelita Aichholz Work Phone: [facility] 03-24-2023 11:05-0500 Body height 180.34 cm Carmelita Aichholz Work Phone: [facility] 03-24-2023 11:05-0500 Body weight 70.3 kg Carmelita Aichholz Work Phone: [facility] 03-16-2023 14:00-0500 Diastolic blood pressure 88 mm[Hg] Glo Mani Other [facility] Other 03-16-2023 14:00-0500 Respiratory rate 18 /min Glo Mani Other [facility] Other 03-16-2023 14:00-0500 SaO2% (BldA) [Mass fraction] 98 % Glo Mani Other [facility] Other 03-16-2023 14:00-0500 Systolic blood pressure 172 mm[Hg] Glo Mani Other [facility] Other 03-11-2023 10:00-0500 Body temperature 97.8 [degF] Linda Michael Other [facility] Other 03-11-2023 10:00-0500 Body weight 69.85 kg Linda Michael Other [facility] Other 03-11-2023 10:00-0500 Diastolic blood pressure 64 mm[Hg] Linda Michael Other [facility] Other 03-11-2023 10:00-0500 SaO2% (BldA) [Mass fraction] 98 % Linda Michael Other [facility] Other 03-11-2023 10:00-0500 Systolic blood pressure 114 mm[Hg] Linda Michael Other [facility] Other 02-26-2023 10:19-0400 Diastolic blood pressure 104 mm[Hg] Carmelita Aichholz Work Phone: [facility] 02-26-2023 10:19-0400 Heart rate 54 /min Carmelita Aichholz Work Phone: [facility] 02-26-2023 10:19-0400 Respiratory rate 16 /min Carmelita Aichholz Work Phone: [facility] 02-26-2023 10:19-0400 SaO2% (BldA) [Mass fraction] 98 % Carmelita Aichholz Work Phone: [facility] 02-26-2023 10:19-0400 Systolic blood pressure 168 mm[Hg] Carmelita Aichholz Work Phone: [facility] 02-18-2023 09:45-0400 Body temperature 97.2 [degF] Linda Michael Other [facility] Other 02-18-2023 09:45-0400 Diastolic blood pressure 92 mm[Hg] Linda Rodriguez Other [facility] Other 02-18-2023 09:45-0400 SaO2% (BldA) [Mass fraction] 97 % Linda Michael Other [facility] Other 02-18-2023 09:45-0400 Systolic blood pressure 164 mm[Hg] Linda Michael Other [facility] Other 02-10-2023 15:02-0400 Body height 4419.6 cm Carmelita Zavala Work Phone: [facility] 02-10-2023 15:02-0400 Body weight 63.87 kg Carmelita Zavala Work Phone: [facility] Encounters Encounter Date Encounter Type Care Provider Facility Start: 06-19-2023 ambulatory Sancho Preciado ty:[facility] Start: 06-09-2023 ambulatory Sancho Preciado ty:[id number] Start: 05-26-2023 End: 05-27-2023 ambulatory Sancho LEE Facility: [facility] Start: 05-26-2023 End: 05-26-2023 Patient encounter procedure Sancho LEE [facility] Start: 05-21-2023 End: 05-21-2023 ambulatory Addie Hunt Other [facility] Other Start: 05-21-2023 Telephone encounter Addie Aldana [facility] Start: 05-19-2023 End: 05-19-2023 ambulatory Addie Hunt Other [facility] Other Start: 05-19-2023 Patient encounter procedure Addie Hunt [facility] Start: 05-14-2023 End: 05-14-2023 ambulatory Addie Hunt Other [facility] Other Start: 05-14-2023 FQHC visit, estab pt Addie Hunt [facility] Start: 04-21-2023 End: 04-21-2023 ambulatory Linda Rodriguez Other [facility] Other Start: 04-21-2023 Telephone encounter Linda Zhu [facility] Surgery Start: 04-20-2023 End: 04-24-2023 Evaluation and management of inpatient Linda Rodriguez Facility:[facility] Start: 04-20-2023 End: 04-24-2023 Evaluation and management of inpatient Carmelita Garciaayoholz Work Phone: [facility]-[address] [place] [address] Surgical Work Phone: Start: 04-17-2023 End: 04-17-2023 Emergency department patient visit Mary Carey Facility:[facility] Start: 04-17-2023 End: 04-17-2023 Emergency department patient visit Carmelitacindi Zavala Work Phone: [facility]-Emergency Room Work Phone: Start: 04-17-2023 End: 04-18-2023 ambulatory Sancho LEE Facility:[facility] Start: 04-13-2023 End: 04-13-2023 ambulatory Linda Rodriguez Facility:[facility] Start: 04-13-2023 End: 04-13-2023 Patient encounter procedure Carmelita Aicayoholz Work Phone: [facility]-Pre-Surgical Testing Work Phone: Start: 03-25-2023 End: 03-25-2023 ambulatory Glo Edwardsoroge Other [facility] Other Start: 03-25-2023 Telephone encounter Glo Edwardsoroge [facility] Start: 03-24-2023 Encounter by marquise goss Glo Mani [facility] Start: 03-24-2023 End: 03-24-2023 ambulatory Carmelita Zavala Work Phone: [facility] Work Phone: Start: 03-24-2023 End: 03-24-2023 Patient encounter procedure Carmelita Lucas Work Phone: [facility] Work Phone: Start: 03-18-2023 End: 03-19-2023 ambulatory Sancho LEE Facility:[facility] Start: 03-18-2023 End: 03-18-2023 Patient encounter procedure Sancho LEE [facility] Start: 03-16-2023 End: 03-16-2023 ambulatory Glo Singleton Other [facility] Other Start: 03-16-2023 Encounter for other preprocedural examination Glo Mani [facility] Start: 03-16-2023 Office outpatient ne w 45 minutes Glo Mani [facility] Start: 03-16-2023 Preprocedural examination done Glo Edwardsoroge Other [facility] Other Start: 03-11-2023 Office outpatient vi sit 40 minutes Linda Rodriguez [facility] Start: 03-11-2023 End: 03-11-2023 ambulatory Carmelita Zavala Work Phone: [facility] Other Start: 03-11-2023 End: 03-11-2023 Patient encounter procedure Carmelita Zavala Work Phone: [facility]-Ultrasound [facility]ascular Start: 02-26-2023 End: 02-26-2023 ambulatory Linda Rodriguez Facility:[facility] Start: 02-26-2023 End: 02-26-2023 ambulatory Carmelita Zavala Work Phone: [facility] Work Phone: Start: 02-26-2023 End: 02-26-2023 Patient encounter procedure Carmelita Zavala Work Phone: [facility]-CT Scan [facility] [place] Work Phone: Start: 02-18-2023 End: 02-18-2023 ambulatory Linda Rodriguez Other [facility] Other Start: 02-18-2023 Office outpatient ne w 60 minutes Linda Rodriguez [facility] Vascular Surgery Start: 02-10-2023 End: 02-10-2023 ambulatory Sancho Lee Facility:[facility] Start: 02-10-2023 End: 02-10-2023 Patient encounter procedure Carmelita Zavala Work Phone: [facility]-MRI [facility] [place] Work Phone: Start: 12-29-2022 End: 12-29-2022 ambulatory Carmelita Stevensonholemily Work Phone: [facility] Work Phone: Start: 12-29-2022 End: 12-29-2022 Patient encounter procedure Carmelita Saldanaz Work Phone: [facility]-MRI [facility] [place] Work Phone: Start: 11-21-2022 End: 11-22-2022 ambulatory Sancho LEE Facility:[facility] Start: 09-22-2022 End: 09-23-2022 ambulatory Sancho LEE [facility] Start: 09-22-2022 End: 09-23-2022 ambulatory Sancho LEE Facility:[facility] Start: 08-25-2022 End: 08-26-2022 ambulatory WIRE STITCHER OPERATOR CARMELITA ZAVALA Facility:[facility] Start: 07-21-2022 ambulatory LINDA WORKMAN [facility] Start: 01-14-2022 End: 01-14-2022 ambulatory WIRE STITCHER OPERATOR CARMELITA LUCAS Facility:[facility] Start: 12-24-2021 End: 12-25-2021 ambulatory WIRE STITCHER OPERATOR CARMELITA LUCAS Facility:[facility] Start: 10-29-2021 End: 10-29-2021 Patient encounter procedure Mady Kramer Jr. [facility] Start: 10-22-2021 End: 10-23-[address] MADY Arboleda Facility:[facility] Start: 10-07-2021 End: 10-07-2021 ambulatory WIRE STITCHER OPERATOR CARMELITA ZAVALA Facility:[facility] Start: 09-26-2021 End: 09-27-2021 ambulatory WIRE STITCHER OPERATOR CARMELITA LUCAS Facility:[facility] Start: 09-10-2021 End: 09-11-2021 ambulatory WIRE STITCHER OPERATOR CARMELITA LUCAS Facility:[facility] Procedures Date Procedure Procedure Detail Performing Clinician Start: 04-20-2023 Antibody screen Linda Rodriguez Comment on above: Order Comment: Trans fuse now? N Result Comment: PERF ORMED BY: [address] [id number] PATHOLOGIST AUTOMATIC CASTING MACHINE OPERATOR NOAH PINEDA M.D. Start: 04-20-2023 Femoral endarterectomy [...] Joseayoneli Work Phone: Start: 08-25-2022 PSA screening WIRE STITCHER OPERATOR CARMELITA STEVENSONBRODERICKEmily Comment on above: Performed By: #### P SAFREE #### [facility] [address] [address] [address] Daniel Hahn Start: 04-18-2021 Cystoscopy and [...] 10 years ago Extraction of cataract Vahid Karmer Jr. Comment on above: B/L Tonsillectomy Mady arizmendi Plan of Treatment Date Care Activity Detail Author Start: 04-23-2023 [facility] Start: 04-21-2023 Referral to Developer Evangelist [facility] Start: 04-20-2023 Hospital admission [facility] Patient Education [facility] Work Phone: Patient referral [facility] Work Phone: [facility] Immunizations Immunization Date Immunization Notes Care Provider Lilian lew 04-22-2022 SARS-CoV-2 (COVID-19 ) [id number] Sancho LEE [facility] 02-19-2021 SARS-CoV-2 (COVID-19 ) mRNA BNT-162b2 vax Sancho LEE [facility] 01-28-2021 SARS-CoV-2 (COVID-19 ) mRNA BNT-162b2 vax Sancho LEE [facility] 02-13-2020 influenza virus vacc ine, unspecified formulation Mady Kramer Jr. [facility] 02-02-2020 pneumococcal conjuga te vaccine, 13 valent Sancho LEE [facility] 12-30-2019 influenza virus vacc ine, unspecified formulation Sancho LEE [facility] [facility]2019 pneumococcal conjuga te vaccine, 13 valent Sancho LEE [facility] 01-11-2019 influenza virus vacc ine, unspecified formulation Sancho LEE [facility] 03-15-2018 influenza virus vacc ine, unspecified formulation Sancho LEE [facility] 03-15-2018 pneumococcal polysaccharide vaccine, 23 valent Sancho LEE [facility] 04-13-2017 influenza virus vacc ine, unspecified formulation Sancho LEE [facility] 01-30-2017 pneumococcal conjuga te vaccine, 13 valent Sancho LEE [facility] 09-21-2014 zoster vaccine, live Sancho LEE [facility] 03-30-2012 pneumococcal polysaccharide vaccine, 23 valent Mady Williams Ogden [facility] Comment on above: Early/Late Reason: N ew Med Order Payers Date Payer Category Payer Self-pay [id number] 1958 Medicare [id number] 1958 Unknown [id number] 1945 Unknown [id number] 2.16.840.1.590516.3.579.2.593 1946 Unknown [id number] 2.16.840.1.300564.3.579.2.593 1945 Unknown [id number] 2.16.840.1.231675.3.579.2.593 1946 Unknown [id number] 2.16.840.1.046944.3.579.2.593 1946 Unknown [id number] 2.16.840.1.900956.3.579.2.593 1946 Unknown [id number] 2.16.840.1.115518.3.579.2.593 1946 Unknown [id number] 2.16.840.1.964347.3.579.2.593 1946 Unknown [id number] 2.16.840.1.089638.3.579.2.727 1946 Unknown [id number] 2.16.840.1.425592.3.579.2.727 1946 Unknown [id number] 2.16.840.1.565575.3.579.2.727 1946 Unknown [id number] 2.16.840.1.854444.3.579.2.727 1946 Unknown [id number] 2.16.840.1.822071.3.579.2.727 1945 Unknown [id number] 2.16.840.1.812167.3.579.2.727 1945 Unknown [id number] 2.16.840.1.446751.3.579.2.727 Private Health Insurance [facility] [id number] Unknown [id number] 2.16.840.1.720386.3.579.2.531 Unknown [id number] 2.16.840.1.234378.3.579.2.531 Unknown [id number] 2.16.840.1.906986.3.579.2.531 Unknown [id number] 2.16.840.1.066192.3.579.2.531 Unknown [id number] 2.16.840.1.129066.3.579.2.531 Unknown [id number] 2.16.840.1.049856.3.579.2.531 Unknown [id number] 2.16.840.1.083472.3.579.2.531 Social History Date Type Detail Facility Start: 03-21-2021 End: 11-21-2022 Tobacco smoking status Never smoked tobacco (finding) [facility] Sex Assigned At Male [facility] Start: 06-18-2021 End: 06-18-2021 Tobacco smoking status NHIS Ex-smoker (finding) [facility] Start: 1945 Sex Assigned At Male F [facility] Tobacco smoking status Never [facility] Medical Equipment Procedure Code Equipment Code Equipment Origin al Text Equipment Identifier Dates CYSTOSCOPY RETROGRADE STENT INSERTION Williams Ogden MD, Mady L 04/18/21 Non Biological Ureter L [id number] FDA Start: 04-18-2021 Goals Date Patient Goal Desired Activity /State Functional Status Date Assessment Result Facility 04-24-2023 Functional status Patient at Baseline [facility] Work Phone: 10-29-2021 Functional Status N/A [facility] Mental Status Date Assessment Result Facility 04-24-2023 Cognitive function Cognitive Sta tus Patient at Baseline [facility] Work Phone: Clinical Notes 10-29-2021 to 05-19-2023 Note Date & Type Note Facility 05-19-2023 Evaluation note Encounter Date Diagnosis Assessment Notes May, 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 [...] his normal follow-up for additional wound check. [facility] Other 01-11-2024 Evaluation note* Encounter Date Diagnosis [...] will also forward today's office note to [facility] as well. They verbalized understanding in the office today, agree with plan, deny any questions. Will see him in a week or 2, sooner as needed. May, Encounter for surgical aftercare following surgery of circulatory system (ICD-10 - Z48.812) [facility] Other 01-04-2024 Hospital Discharge instructions Follow Up Care 05/07/2023 09:48:20 With:JESUS DEAL, Sancho Narayanan, URL Address: [facility] [address] [place] [address] [phone] When: Unknown [facility] 12-20-2023 Progress note Author Linda Rodriguez [facility] April 22, 2023 8:46am Note Date/Time April 22, 2023 8:14am [facility] [address] [place] [id number] Vascular Surgery Progress Note Signed Patient: Sebastian Diego MR#: [id number] : 1945 Acct:[id number] Age/Sex: 77 / M Adm Date: 3 Loc: 4N Room: 4E0375-7 Type: ADM IN Attending Dr: Linda Rodriguez [...] signed by Linda Rodriguez MD> 04/22/23 0846 [facility] Work Phone: [phone] Progress note Author Linda Rodriguez [facility] April 21, 2023 3:33pm Note Date/Time April 21, 2023 8:41am [facility] [address] [place] [address] Vascular Surgery Progress Note Signed Patient: Sebastian Diego MR#: [id number] : 1945 Acct:[id number] Age/Sex: 77 / M Adm Date: 3 Loc: Room: [address] [place] [address] Type: ADM IN Attending Dr: Linda Rodriguez [...] MPV Neut % (Auto) Lymph % (Auto) Irwin % (Auto) Eos % (Auto) Baso % (Auto) Nucleat RBC Rel Count Neut # (Auto) Lymph # (Auto) Irwin # (Auto) Eos # (Auto) Baso # [...] % (Auto) 91.3 Lymph % (Auto) 3.9 Irwin % (Auto) 4.6 Eos % (Auto) 0.0 Baso % (Auto) 0.2 Nucleat RBC Rel Count 0.0 Neut # (Auto) 16.0 H Lymph # (Auto) 0.7 L Irwin # (Auto) 0.8 Eos # (Auto) 0.0 [...] MPV Neut % (Auto) Lymph % (Auto) Irwin % (Auto) Eos % (Auto) Baso % (Auto) Nucleat RBC Rel Count Neut # (Auto) Lymph # (Auto) Irwin # (Auto) Eos # (Auto) Baso # (Auto) Activated Clotting Time PHA Creatinine Clear 54.31 Sodium 137 Potassium Chloride 106 Carbon Dioxide 24.7 Anion Gap TNP BUN 19 Creatinine 1.06 Est GFR (CKD-EPI) > 60.0 Glucose 130 H POC Glucose POC Glucose Comment Calcium 8.0 L Blood Type Blood Type Recheck Antibody Screen Crossmatch ([facility]) A&P - Vascular Assessment/Plan (1) Femoral artery [...] physical therapy today. I will ask the social service technician to see him with regards to placement. [...] <Electronically signed by Linda Rodriguez MD> 04/21/23 7982 [facility] Work Phone: [phone] Procedure [facility]11-21-2023 Procedure [facility]11-13-2023 Evaluation note* Encounter Date Diagnosis Assessment Notes [...] H43.813) Mar, Abnormal EKG (ICD-10 - R94.31) [facility] 11-08-2023 Evaluation note* Encounter Date Diagnosis [...] help him he voiced understanding of this. [facility] Other 10-18-2023 Evaluation note* Encounter Date Diagnosis [...] after the study to for further recommendations. [facility] Other 05-22-2023 NoteChief Complaint Referral *Elevated PSA [...] [facility] [address] [place] [address]- Additional Instructions: schedule MRI of prostate, f/u [...] BID metformin 500 mg Tab Potassium Chloride (Itk-Pwzr-Tpm 10) 10 mEq oral tablet, extended release [...] Comments SARS-CoV-2 (COVID-19) mRN (more content not included)...[facility]:Result Comment: Electronically Signed By: Lynne Mas.br\Date and Time Signed: 09/22/22 13:12 EDT\.br\Electronically Co-Signed By: Sancho LEE MD\.br\Date and Time Co-Signed: 09/22/22 13:22 [id number] [facility] [address] [place] [address] Mr. Sebastian Diego was seen for a neuropsychological evaluation on 07/21/2022. A report describing the results of this evaluation will be posted upon completion. Linda Workman, PhD, ABPP Board Certified Clinical Neuropsychologist OUTPATIENT REHABILITATION SERVICES NEUROPSYCHOLOGY [address] [facility] [address] FAX: [phone] NEUROPSYCHOLOGICAL EVALUATION DATES OF SERVICE: 07/21/2022 DIANGOSES: [...] thyroid gland, elevated parathy (more content not included)...[facility]03-20-2023 [id number] Sebastian Diego Cindi 1945 M Date Provider Department Center 07/21/2022 LINDA MARTINEZ [facility] No [facility] Hospital Discharge instructions Patient Education 10/29/2021 [...] Follow these instructions at home: Medicines Take yhxw-oss-qitwlgp and prescription medicines only as told by [...] or the blood stops without treatment. Take fsem-her-oyutmfo and prescription medicines only as told by your health care provider. Drink enough fluid to keep your urine clear or pale yellow. This information is not intended to replace advice given to you by your health care provider. Make sure you discuss any questions you have with your health care provider. Document Released: 04/20/2006 Document Revised: 09/14/2019 Document Reviewed: 05/23/2017 [employer] Patient Education 2020 AYLIEN. Follow Up Care 04/25/2021 09:31:27 With:Mady Kramer Jr., MD, URO Address: [facility] [address] [place] [address] [phone] When:10/29/2022 Comments:LEI YEPEZ [facility] evaluation + Plan note Future Appointments Appointment Date:11/11/2022 11:15:00 AM Scheduled Provider:Mady Kramer Jr., MD Location:[facility] Appointment Type:URO Office Visit Diagnostic Tests Pending * PSA Total 10/29/21 [facility] evaluation + Plan note Future Appointments Appointment Date:04/17/2023 09:30:00 AM Scheduled Provider:Sancho LEE MD Location:[facility] Appointment Type:URO Office Visit [facility] Evaluation + Plan note Future Appointments Appointment Date:06/19/2023 11:15:00 AM Scheduled Provider:Sancho LEE MD Location:[facility] Appointment Type:URO Office Visit [facility] evaluvbnsi noteNo assessment information available [facility] Work Phone: evaluyhzbr noteNo InformationNort Haloband Other Evaluation note* Diagnosis Onset Date Resolution Status Femoral artery aneurysm, right acute [facility] Work Phone: Hisailv general Narrative - Reported* Type Description Date [...] SEE ABOVE SURGERIES Hospitalization History Confusion/ TIA [facility] Other Hospital course Narrative No data available for this section [facility] Hospital Discharge instructions No data available for this section [facility] Hospital Discharge instructions Additional Instructions Continue rest ice elevate Tylenol 650 mg to 1000 mg every 4 hours for pain Wear the wrist splint as needed for comfort stability Follow-up with your family doctor for recheck Return to the ER for worsening pain loss of circulation in your fingers fever chills or any other [facility] Work Phone: Hospital Discharge instructions Additional Instructions May shower. Do not soak in bathtub. Keep Prevena dressing in place x 7 days. Then remove entire dressing and discard. After that, wash daily with mild soap and water, pat dry, apply clean dry dressing.[facility] Work Phone: Progress note No data available for this section [facility] Summary Purpose Family History No Family [...] Joseayoneli Primary Care Provider Active Mary Carey [facility] Emergency Provider Active Team Status: Inactive Member Role Status Dates Carmelita J Lucas Primary Care Provider Active Linda Rodriguez MD Admit Provider, Attending Pr ovider Active (unrecognized sect ion and content) No Status Records FoundNo Status Records FoundNo Status Records FoundNo Status Records Found INFORMATION SOURCE (unrecogn ized section and content) DATE CREATED AUTHOR 08/19/2022 [facility] DATE CREATED AUTHOR AUTHOR'S ORGANIZ ATION 08/28/2022 [facility] DATE CREATED AUTHOR AUTHOR'S ORGANIZ ATION 04/30/2023 [facility] DATE CREATED AUTHOR AUTHOR'S ORGANIZ ATION 06/02/2023 [facility] Goals (unrecognized section and content) Goals may [...]
[2023-06-12 09:22] LABS: Anion Gap 13.5; BUN Creatinine Ratio 33.2; Carbon Dioxide 27.4 mmol/L (21.0-32.0); Chloride 104 mmol/L (98-107); Estimated GFR (African America 37 (>=60); Estimated GFR (Non-African Ame 30 (>=60); Glucose 97 mg/dL (74-106); Potassium 5.9 mmol/L (3.5-5.1); Sodium 139 mmol/L (136-145)
[2023-06-12 09:41] LABS: Basophils Percent Auto 0.2 % (0.2-2.0); Eosinophils Absolute Auto 0.4 10^3/uL (0.0-0.7); Eosinophils Percent Auto 3.8 % (0.9-7.0); Hematocrit 32.6 % (42.0-54.0); Hemoglobin 9.8 g/dL (14.0-18.0); Immature Granulocytes Abs Auto 0.06 10^3/uL (0.00-0.03); Immature Granulocytes Pct Auto 0.6 % (0.0-0.5); Lymphocytes Absolute Auto 0.8 10^3/uL (1.2-3.8); Lymphocytes Percent Auto 8.9 % (20.5-60.0); Mean Corpuscular HGB Conc 30.1 g/dL (29.9-35.2); Mean Corpuscular Hemoglobin 30.1 pg (25.9-34.0); Mean Platelet Volume 10.4 fL (9.5-13.5); Monocytes Absolute Auto 0.8 10^3/uL (0.3-0.8); Monocytes Percent Auto 8.2 % (1.7-12.0); Neutrophils Absolute Auto 7.4 10^3/uL (1.4-6.5); Neutrophils Percent Auto 78.3 % (43.0-75.0); Platelet Count 258 10^3/uL (150-450); Red Blood Count 3.26 10^6/uL (4.70-6.10); Red Cell Distribution Width 15.5 % (11.0-15.0); White Blood Count 9.4 10^3/uL (4.0-11.0)
== END 2023-06-12 02:22 | disposition home or self-care (01) ==
LOC: LAB 02:21
PROVIDERS: PCP Nurse Practitioner; Visit Provider Family Medicine
DX: R21 Rash and other nonspecific skin eruption (principal)
CPT/HCPCS: 36415; 80048; 85025

== ENCOUNTER 2023-06-15 01:46 | Outpatient (REF) | payer MEDICARE, SELFPAY ==
--- OUTSIDE RECORDS SUMMARY | 2023-06-15 01:50 | XMS_ITS | CCD ---
Author Name Unknown Address [address] [place] [address] Organization [facility] Care Team Providers Care Tailor'S Aide Name Role Phone CARMELITA ZAVALA Primary Care Physician LINDA WORKMAN Attending Unavailable ANABELA, MINDY Referring Unavailable AICHHOLZ, TRANSITIONS RN CARE COORDINATOR CARMELITA Primary Care Unavailable ISSA ., DR HOWARD Admitting Unavailable ISSA ., DR HOWARD Attending Unavailable ISAS ., DR HOWARD Consulting Unavailable ANIKA CURTIS Consulting Unavailable ALKA MORENO Consulting Unavailable CARMEN MURDOCK Consulting Unavailable AD, JULEE Consulting Unavailable AICHHOLZ, TRANSITIONS RN CARE COORDINATOR CARMELITA Admitting Unavailable AICHHOLZ, TRANSITIONS RN CARE COORDINATOR CARMELITA Attending Unavailable AICHHOLZ, TRANSITIONS RN CARE COORDINATOR CARMELITA Primary Care Unavailable AICHHOLZ, TRANSITIONS RN CARE COORDINATOR CARMELITA Consulting Unavailable AICHHOLZ, TRANSITIONS RN CARE COORDINATOR CARMELITA Admitting Unavailable AICHHOLZ, TRANSITIONS RN CARE COORDINATOR CARMELITA Attending Unavailable AICHHOLZ, TRANSITIONS RN CARE COORDINATOR CARMELITA Primary Care Unavailable AICHHOLZ, TRANSITIONS RN CARE COORDINATOR CARMELITA Consulting Unavailable AICHHOLZ, TRANSITIONS RN CARE COORDINATOR CARMELITA Admitting Unavailable AICHHOLZ, TRANSITIONS RN CARE COORDINATOR CARMELITA Attending Unavailable AICHHOLZ, TRANSITIONS RN CARE COORDINATOR CARMELITA Primary Care Unavailable AICHHOLZ, TRANSITIONS RN CARE COORDINATOR CARMELITA Consulting Unavailable DR MADY CAGLE JR Admitting Unavaila asim Arboleda, DR MADY Liao Attending Unavaila ble AICHHOLZ, TRANSITIONS RN CARE COORDINATOR CARMELITA Primary Care Unavailable Deandre Min Consulting Unavailable DR MADY CAGLE JR Consulting Unavaila ble AICHHOLZ, TRANSITIONS RN CARE COORDINATOR CARMELITA Admitting Unavailable AICHHOLZ, TRANSITIONS RN CARE COORDINATOR CARMELITA Attending Unavailable AICHHOLZ, TRANSITIONS RN CARE COORDINATOR CARMELITA Primary Care Unavailable MINE, DR CAROLINE Yuan Consulting Unavailable AICHHOLZ, TRANSITIONS RN CARE COORDINATOR CARMELITA Consulting Unavailable AICHHOLZ, TRANSITIONS RN CARE COORDINATOR CARMELITA Admitting Unavailable AICHHOLZ, TRANSITIONS RN CARE COORDINATOR CARMELITA Attending Unavailable AICHHOLZ, TRANSITIONS RN CARE COORDINATOR CARMELITA Primary Care Unavailable LUCAS, TATYANA CARMELITA Consulting Unavailable MD Sancho Lee Attending Provider Carmelita Zavala Primary Care Provider [phone] Linda Rodriguez Unavailable Carmelita Zavala Primary Care Provider MD Sancho Lee Attending Provider MD Linda Rodriguez Attending Provider Carmelita Zavala Primary Care Provider MD Sancho Lee Attending Provider [phone] MD Linda Rodriguez Attending Provider Glo Singleton Unavailable MD Glo Singleton Attending Provider MD Glo Singleton Referring Provider Cherry, SUPERVISING DEPUTY-BC Mary Miller Emergency Provider MD Linda Rodriguez Admit Provider Linda Rodriguez Admitting Unavailabl Linda Roy Attending Unavailabl e Carmelita Zavala Primary Care Unavailable Linda Rodriguez Attending Unavailabl e Linda Rodriguez Admitting Unavailabl e Carmelita Zavala Primary Care Unavailable Mary Carey Admitting Unavailable Carieore Mary Angela Attending Unavailable Carmelita Zavala Primary Care Unavailable Sancho Lee Attending Unavailable Sancho Lee Admabena Unavailable Carmelita Zavala Primary Care Unavailable Linda Rodriguez Admitting Unavailabl e Linda Rodriguez Attending Unavailabl e Carmelita Zavala J Primary Care Unavailable Linda Rodriguez Admitting Unavailabl e Linda Rodriguez Attending Unavailabl e Carmelita Zavala J Primary Care Unavailable Glo Singleton Admitting Unavailable Glo Singleton Attending Unavailable Glo Singleton Referring Unavailable Carmelita Zavala Primary Care Unavailable Addie Hunt Unavailable LEE, Sancho R Attending Unavailable LEE, Sancho R Attending Unavailable LEE, Sancho R Attending Unavailable LEE, Sancho R Attending Unavailable LEE, Sancho R Attending Unavailable LEE, Sancho R Admitting Unavailable LEE, Sancho R Attending Unavailable LEE, Sancho R Attending Unavailable LEE, Sancho R Attending Unavailable Lucas RESIDENTIAL THERAPIST, Carmelita Unavailable So DEAL, Bruno Primary Care Provider [phone] Allergies Allergy Classification Reported Allergen(s) Allergy Type Date of Onset Reaction(s) Facility (4 sources) Adrenergic Beta-Antagonist s; Translations: [beta blockers] Drug allergy Asthenia (finding), Vomiting (disorder), Dizziness (finding) [facility] (1 source) ALLERGIES NOT ON FILE; Translations: [ALLERGIES NOT ON FILE] Propensity to adverse reactions (disorder) [facility] (1 source) Adrenergic Beta-Antagonist s Drug allergy (disorder) 4 [facility] Rep[facility] (7 sources) Beta-Blockers (Beta-Adrenergi c Bloc; Translations: [Beta-Blockers (Beta-Adrenergi c Bloc] Allergy to substance 3 Headache [facility] (10 sources) Adrenergic Beta-Antagonist s Propensity to adverse reactions vomiting [employer] [facility] [employer] Other (6 sources) Iodinated Contrast Media; Translations: [Iodinated Contrast Media] Allergy to substance 3 Difficulty Swallowing [facility] (8 sources) Contrast Allergy [facility] Drug allergy Unknown [employer] Other (1 source) beta-Blocking agent Propensity to adverse reactions 3 [facility] Medications Current Medications Medication Drug Class(es) Dates [...] 2023 12:39pm atorvastatin 40 mg oral tablet (20 sources) HMG-CoA Reductase Inhibitor Start: 11-27-2018 take 1 tablet by mouth once daily at bedtime Atorvastatin (Lipitor) 40 mg tablet Active 40 MG PO Daily at bedtime November 26, 2018 11:00pm Start: 01-28-2011 take 1 tablet by david th once daily Lipitor 10 mg Tab 10 mg = 1 tab(s), Oral, Daily, Refills(s) 0, High cholesterol Start Date: 01/28/11 Status: Ordered cholecalciferol 0.05 mg oral tablet (1 source) Vitamin D take 1 tablet by mouth in the morning cholecalciferol (Vitamin D-3) 50 MCG (2000 UT) tablet Take 2,000 Units by mouth in the morning. 0 Active clopidogrel 75 mg oral tablet (20 sources) P2Y12 Platelet Inhibitor Start: 019 End: 023 take 1 tablet by mouth once daily clopidogrel 75 mg Tab 75 mg = 1 tab(s), Oral, Daily, Refills(s) 0, Blood Thinner Start Date: 12/30/18 Status: Ordered docusate sodium 100 mg oral capsule (1 source) Start: take 100 mg by mouth twice daily Docusate Sodium Active 100 MG PO Twice daily 14 11April 23, 2023 12:00am doxycycline hyclate 100 mg oral capsule (1 source) Tetracycline-class Drug Start: 023 take 1 capsule by mouth twice daily doxycycline hyclate 100 mg Cap 100 mg = 1 cap(s), Oral, BID, # 42 cap(s), Refills(s) 0, Pharmacy: [facility] #[id number], 177.8, cm, 04/18/21 10:33:00 EST, Height/Length Dosing, 84.4, kg, 11/21/22 9:52:00 EDT, Weight Dosing Start Date: 03/13/23 Status: Ordered DULoxetine 30 mg delayed release oral capsule (13 sources) Serotonin and Norepinephrine Reuptake Inhibitor Start: 023 duloxetine 30 mg oral delayed release capsule Refills(s) 0 Start Date: 09/22/22 Status: Ordered hyoscyamine sulfate 0.125 mg oral tablet (1 source) Start: take 1 tablet by mouth four times daily Levsin 0.125 mg SL Tab 0.125 mg = 1 tab(s), Oral, QID, # 20 tab(s), Refills(s) 0, Pharmacy: [facility] [facility], 177.8, cm, 04/18/21 10:33:00 EST, Height/Length Dosing, 84.4, kg, 04/18/21 10:33:00 EST, Weight Dosing Start Date: 04/18/21 Status: Ordered ibuprofen 200 mg oral capsule (19 sources) Nonsteroidal Anti-inflammatory Drug Start: take 1 capsule by mouth every six [...] 11:33am take 1 tablet by david th before mealtime levothyroxine (Synthroid, Levoxyl) 25 MCG tablet Take 25 mcg by mouth in the morning. Take before meals. 0 Active take 1 tablet by david th [...] hydrochloride 10 mg oral tablet (1 source) H-dwwgpw-Z-aspartate Receptor Antagonist Start: 03-21-2021 take 1 tablet by mouth twice daily memantine 10 mg Tab 10 mg = 1 tab(s), Oral, BID, Refills(s) 0, Other (see comment) Start Date: 03/21/21 Status: Ordered metFORMIN hydrochloride 500 mg oral tablet (5 sources) Biguanide Start: 09-22-2022 take 500 mg by mouth once daily at bedtime Metformin Active 500 MG PO Daily at bedtime April 13, 2023 12:00am take 1 tablet by david th at mealtime, then take 1 tablet by mouth every twenty-four hours metFORMIN, OSM, (Fortamet) 500 MG 24 hr tablet Take 500 mg by mouth in the evening. Take with meals Do not crush, chew, or split. 0 Active oxyCODONE hydrochloride 5 mg oral tablet (1 source) Opioid Agonist Start: 04-23-2023 take 5 mg by mouth every eight hours Oxycodone Active 5 MG PO Every 8 hours 14 5 April 23, 2023 potassium chloride 10 meq extended release oral tablet (19 sources) Start: 04-13-2023 take 10 mEq by mouth once daily at bedtime Potassium Chloride Active 10 MEQ PO Daily at bedtime April 13, 2023 12:00am Start: 09-22-2022 Potassium Chlo ride (Rfx-Dolu-Khr 10) 10 mEq oral tablet, extended release Refills(s) 0 Start Date: 09/22/22 Status: Ordered Start: 11-26-2018 End: 12-02-2018 take 20 mEq by mouth once daily Potassium Chloride Discontinued 20 MEQ PO Daily November 25, 2018 11:00pm December 02, 2018 11:33am potassium chlori de CR (Klor-Con M10) 10 MEQ ER tablet Take 10 mEq by mouth in the morning. Do not crush or chew.. 0 Active take 1 tablet by david th every twelve hours Potassium Chloride ER 10 MEQ 1 tablet with food Orally Twice a day Active pregabalin 150 mg oral capsule (14 sources) Start: 04-13-2023 take 150 mg by [...] Daily, # 90 cap(s), Refills(s) 3, Pharmacy: [address], 177.8, cm, 04/18/21 10:33:00 EST, Height/Length Dosing, 84.4, kg, 04/18/21 10:33:00 EST, Weight Dosing Start Date: 09/10/21 Status: Ordered take 1 capsule by [facility] every twenty-four hours in the morning tamsulosin (Flomax) 0.4 MG 24 hr capsule Take 0.4 mg by mouth in the morning and 0.4 mg before bedtime. 0 Active Completed/Discontinued Medications Medication Drug Class(es) Dates Sig [...] (Vitamin B-12) Discontinued 1000 MCG PO Daily February 08, 2020 11:00pm April 13, 2023 [...] on above: Behind both of my k rafaela. Calculus of urinary tract (7 sources) Ureteric stone; Translations: [Calculus of ureter] Onset: 10-29-2021 Episodic Cardiac dysrhythmias (6 sources) Paroxysmal atrial fibrillation; Translations: [Paroxysmal atrial fibrillation] 02-08-2020 Chronic Chronic obstructive pulmonary disease and bronchiectasis (6 sources) Bronchitis; Translations: [Bronchitis, not specified as acute or chronic] 02-06-2020 Episodic Complications of surgical procedures or medical care (2 sources) Other complications of procedures, not elsewhere classified, sequela; Translations: [Disruption of wound, unspecified, initial encounter] Episodic Congestive heart failure; nonhypertensive (6 sources) Chronic diastolic heart failure; Translations: [Chronic diastolic (congestive) heart failure] 11-27-2018 Chronic Coronary atherosclerosis and other heart disease (1 source) Atherosclerotic heart disease of [place] coronary artery without angina pectoris; Translations: [ASHD HOH CA W/O ANGINA PECTORIS] Onset: 01-17-2022 Chronic [...] residual deficits] 12-04-2018 Episodic Other eye disorders (8 sources) Bilateral posterior vitreous detachment; Translations: [Vitreous [...] encephalopathy] 02-07-2020 Chronic Other nervous system disorders (10 sources) Phantom pain following amputation of lower [...] wrist, initial encounter] 04-17-2023 Episodic Thyroid disorders (17 sources) Hypothyroidism, unspecified; Translations: [Hypothyroidism] Onset: 01-17-2022 [...] Onset: 01-17-2022 Episodic Other aftercare (1 source) alf (current) use of aspirin; Translations: [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 1 mg/dL [facility] Chloride [Moles/Vol] 104 mmol/L 98 - 10 7 mmol/L [facility] CO2 [Moles/Vol] 27.4 mmol/L 21.0 - 32.0 mmol/L [facility] Creatinine [Mass/Vol] 2.14 mg/dL High 0.70 - 1.30 mg/dL [facility] GFR/1.73 sq M.predicted CKD-EPI (S/P/Bld) [Vol rate/Area] 37 Low 60 - PINF [facility] Glucose [Mass/Vol] 97 mg/dL 74 - 106 mg/dL [facility] Interpretation and review of laboratory results Abnormal [facility] Potassium [Moles/Vol] 5.9 mmol/L High 3.5 - 5.1 mmol/L [facility] Sodium [Moles/Vol] 139 mmol/L 136 - 145 mmol/L [facility] TBH EGFR-NON AF BERMUDIAN 30 Low 60 - PINF [facility] Urea nitrogen [Mass/Vol] 71.0 mg/dL High 7.0 - 18.0 mg/dL [facility] Urea nitrogen/Creatinine [Mass ratio] 33.2 mg/mg [facility] Consent for Procedure/Surger yon 06-01-2023 Consent for Procedure/Surgery [id number] DD#1.00TIFF [facility] Operative Reporton Operative Report [id number] 7#1.00TIFF [facility] Glucose Glucometer (BldC) [M ass/Vol]Ordered By: Linda Rodriguez on 04-24-2023 Glucose [Mass/Vol] 102 mg/dL [facility] Comment on above: Random Glucose Refer ence Range is dependent on time and content of last meal. Glucose of more than 200 mg/dL in a nonstressed, ambulatory subject supports the diagnosis of Diabetes Mellitus. Glucose Poct Glucometerson 1 06-25-2022 Commemt1 Glu2: Cleaned Meter [facility] Comment on above: Result Comment: PERF ORMED BY: [place] [id number] PATHOLOGIST HARDBOARD PRESS OPERATOR NOAH PINEDA M.D. Performed By: #### G LULS #### Point of Care testing , Glucose [Mass/Vol] 102 mg/dL Normal [facility] Comment on above: Result Comment: [place] om Glucose Reference Range is dependent on time and content of last meal. Glucose of more than 200 mg/dL in a nonstressed, ambulatory subject supports the diagnosis of Diabetes Mellitus. Performed By: #### G LULS #### Point of Care testing , No Panel InformationOrdered By: Linda Rodriguez on 04-24-2023 Bedside Glucose Comment Glu2: cleaned meter [facility] Glucose Poct Glucometerson 1 06-24-2022 Glucose [Mass/Vol] 118 mg/dL Normal [facility] Comment on above: Result Comment: [place] om Glucose Reference Range is dependent on time and content of last meal. Glucose of more than 200 mg/dL in a nonstressed, ambulatory subject supports the diagnosis of Diabetes Mellitus. PERFORMED BY: [place] [id number] PATHOLOGIST HARDBOARD PRESS OPERATOR NOAH PINEDA M.D. Performed By: #### I SCRE #### [address] Commemt1 Glu2: Cleaned Meter [facility] Comment on above: Result Comment: PERF ORMED BY: [place] [id number] PATHOLOGIST HARDBOARD PRESS OPERATOR NOAH PINEDA M.D. Performed By: #### I SCRE #### [address] Glucose [Mass/Vol] 77 mg/dL Normal [facility] Comment on above: Result Comment: [place] Glucose Reference Range is dependent on time and content of last meal. Glucose of more than 200 mg/dL in a nonstressed, ambulatory subject supports the diagnosis of Diabetes Mellitus. Performed By: #### I SCRE #### [address] Glucose Poct Glucometerson 1 06-23-2022 Glucose [Mass/Vol] 65 mg/dL Normal [facility] Comment on above: Result Comment: [place] Glucose Reference Range is dependent on time and content of last meal. Glucose of more than 200 mg/dL in a nonstressed, ambulatory subject supports the diagnosis of Diabetes Mellitus. PERFORMED BY: [place] [id number] PATHOLOGIST HARDBOARD PRESS OPERATOR NOAH PINEDA M.D. Performed By: #### G LULS #### Point of Care testing , Commemt1 Glu2: Cleaned Meter Normal [facility] Comment on above: Result Comment: PERF ORMED BY: [place] [id number] PATHOLOGIST HARDBOARD PRESS OPERATOR NOAH PINEDA M.D. Performed By: #### C MP, CBC #### [address] Glucose [Mass/Vol] 81 mg/dL Normal [facility] Comment on above: Result Comment: [place] Glucose Reference Range is dependent on time and content of last meal. Glucose of more than 200 mg/dL in a nonstressed, ambulatory subject supports the diagnosis of Diabetes Mellitus. Performed By: #### C MP, CBC #### [address] Basic Metabolic Panelon 12-1 Anion gap [Moles/Vol] Not performed Normal 6.0-15.0 [facility] Comment on above: Performed By: #### C MP, CBC #### [facility] [address] Calcium [Mass/Vol] 8.0 mg/dL Low 8.6-10.3 [facility] Comment on above: Performed By: #### C MP, CBC #### [facility] [address] [place] [address] [place] Chloride [Moles/Vol] 106 mmol/L Normal 98-107 [facility] Comment on above: Performed By: #### C MP, CBC #### [facility] [address] CO2 [Moles/Vol] 24.7 mmol/L Normal 21.0-31.0 [facility] Comment on above: Performed By: #### C MP, CBC #### [facility] [address] Creatinine [Mass/Vol] 1.06 mg/dL Normal 0.70-1.30 [facility] Comment on above: Performed By: #### C MP, CBC #### [facility] [address] [place] [address] [place] Creatinine Clr Calc Pharmacy 54.31 [facility] Comment on above: Result Comment: PERF ORMED BY: [place] [id number] PATHOLOGIST HARDBOARD PRESS OPERATOR NOAH PINEDA M.D. Performed By: #### C MP, CBC #### [facility] [address] [place] [address] [place] GFR/1.73 sq M.predicted MDRD (S/P/Bld) [Vol rate/Area] mL/min/{1.73_m2} Normal [facility] Comment on above: Performed By: #### C MP, CBC #### [facility] [address] [place] [address] [place] Glucose [Mass/Vol] 130 mg/dL High 70-100 [facility] Comment on above: Result Comment: [place] Glucose Reference Range is dependent on time and content of last meal. Glucose of more than 200 mg/dL in a nonstressed, ambulatory subject supports the diagnosis of Diabetes Mellitus. ADA recommended reference range Performed By: #### C MP, CBC #### [facility] [address] Potassium Normal 3.5-5.1 [facility] Comment on above: Result Comment: Spec imen hemolyzed, redraw requested Performed By: #### C MP, CBC #### [facility] [address] Sodium [Moles/Vol] 137 mmol/L Normal 136-145 [facility] Comment on above: Performed By: #### C MP, CBC #### [facility] [address] Urea nitrogen [Mass/Vol] 19 mg/dL Normal 7-25 [facility] Comment on above: Performed By: #### C MP, CBC #### [facility] [address] Basophils Auto (Bld) [#/Vol] Ordered By: Linda Rodriguez on 04-21-2023 Basophils (Bld) [#/Vol] 0.0 10*3/uL 0.0-0.2 [facility] Basophils/100 WBC Auto (Bld) Ordered By: Linda Rodriguez on 04-21-2023 Basophils/100 WBC (Bld) 0.2 % . F [facility] Calcium [Mass/volume] in Ser um or PlasmaOrdered By: Linda Rodriguez on 04-21-2023 Calcium [Mass/Vol] 8.0 mg/dL 8.6-10.3 [facility] Carbon dioxide, total [Moles /volume] in Serum or PlasmaOrdered By: Linda Rodriguez on 04-21-2023 CO2 [Moles/Vol] 24.7 mmol/L 21.0-31.0 [facility] Chloride [Moles/volume] in S colleen or PlasmaOrdered By: Linda Rodriguez on 04-21-2023 Chloride [Moles/Vol] 106 mmol/L 98-107 [facility] Complete Blood Count Auto Di ffon 04-21-2023 Basophils (Bld) [#/Vol] 0.0 10*3/uL Normal 0.0-0.2 [facility] Comment on above: Result Comment: PERF ORMED BY: [place] [id number] PATHOLOGIST HARDBOARD PRESS OPERATOR NOAH PINEDA M.D. Performed By: #### C MP, CBC #### [facility] [address] [place] [address] Basophils/100 WBC (Bld) 0.2 % Normal . F [facility] Comment on above: Performed By: #### C MP, CBC #### [facility] [address] [place] [address] Eosinophils (Bld) [#/Vol] 0.0 10*3/uL Normal 0.0-0.45 [facility] Comment on above: Performed By: #### C MP, CBC #### [address] Eosinophils/100 WBC (Bld) 0.0 % Normal . [facility] Comment on above: Performed By: #### C MP, CBC #### [address] Erythrocyte distribution width (RBC) [Ratio] 13.8 % Normal 12.0-14.8 [facility] Comment on above: Performed By: #### C MP, CBC #### [address] Hematocrit (Bld) [Volume fraction] 31.7 % Low 38.8-50.0 [facility] Comment on above: Performed By: #### C MP, CBC #### [place] [address] [place] Hemoglobin (Bld) [Mass/Vol] 10.6 g/dL Low 13.0-17.0 [facility] Comment on above: Performed By: #### C MP, CBC #### [facility] [address] [place] [address] [place] Lymphocytes (Bld) [#/Vol] 0.7 10*3/uL Low 1.00-4.8 [facility] Comment on above: Performed By: #### C MP, CBC #### [facility] [address] [place] [address] [place] Lymphocytes/100 WBC (Bld) 3.9 % Normal . [facility] Comment on above: Performed By: #### C MP, CBC #### [facility] [address] MCH (RBC) [Entitic mass] 31.1 pg Normal 27.5-35.2 [facility] Comment on above: Performed By: #### C MP, CBC #### [facility] [address] MCV (RBC) [Entitic vol] 92.8 fL Normal 83.5-101 F [facility] Comment on above: Performed By: #### C MP, CBC #### [address] Mean Corpuscular HGB Conc 33.5 g/dL Normal 32.5-35.6 [facility] Comment on above: Performed By: #### C MP, CBC #### [place] [address] [place] Monocytes (Bld) [#/Vol] 0.8 10*3/uL Normal 0.0-0.8 [facility] Comment on above: Performed By: #### C MP, CBC #### [address] Monocytes/100 WBC (Bld) 4.6 % Normal . [facility] Comment on above: Performed By: #### C MP, CBC #### [place] [address] [place] Neutrophils (Bld) [#/Vol] 16.0 10*3/uL High 1.8-7.7 [facility] Comment on above: Performed By: #### C MP, CBC #### [place] [address] [place] Neutrophils/100 WBC (Bld) 91.3 % Normal . [facility] Comment on above: Performed By: #### C MP, CBC #### [address] [place] [address] [place] NRBC% 0.0 /100{WBC} Normal 0-0.5 [facility] Comment on above: Performed By: #### C MP, CBC #### [address] Platelet mean volume (Bld) [Entitic vol] 8.1 fL Normal 6.6-10.1 [facility] Comment on above: Performed By: #### C MP, CBC #### [address] Platelets (Bld) [#/Vol] 244 10*3/uL Normal 150-450 [facility] Comment on above: Performed By: #### C MP, CBC #### [address] RBC (Bld) [#/Vol] 3.41 10*6/uL Low 3.90-5.60 [facility] Comment on above: Performed By: #### C MP, CBC #### [address] WBC (Bld) [#/Vol] 17.5 10*3/uL High 4.1-10.5 [facility] Comment on above: Performed By: #### C MP, CBC #### [address] Creatinine [Mass/volume] in Serum or PlasmaOrdered By: Linda Rodriguez on 04-21-2023 Creatinine [Mass/Vol] 1.06 mg/dL 0.70-1.30 [facility] Eosinophils Auto (Bld) [#/Vo l]Ordered By: Linda Rodriguez on 04-21-2023 Eosinophils (Bld) [#/Vol] 0.0 10*3/uL 0.0-0.45 [facility] Eosinophils/100 WBC Auto (Bl d)Ordered By: Linda Rodriguez on 04-21-2023 Eosinophils/100 WBC (Bld) 0.0 % . [facility] Erythrocyte distribution wid th Auto (RBC) [Ratio]Ordered By: Linda Rodriguez on 04-21-2023 Erythrocyte distribution width (RBC) [Ratio] 13.8 % 12.0-14.8 [facility] Glucose [Mass/volume] in Ser um or PlasmaOrdered By: Linda Rodriguez on 04-21-2023 Glucose [Mass/Vol] 130 mg/dL 70-100 [facility] Comment on above: ADA recommended refe rence rangeRandom Glucose Reference Range is dependent on time and content of last meal. Glucose of more than 200 mg/dL in a nonstressed, ambulatory subject supports the diagnosis of Diabetes Mellitus. Hematocrit Auto (Bld) [Volum e fraction]Ordered By: Linda Rodriguez on 04-21-2023 Hematocrit (Bld) [Volume fraction] 31.7 % 38.8-50.0 [facility] Hemoglobin [Mass/volume] in BloodOrdered By: Linda Rodriguez on 04-21-2023 Hemoglobin (Bld) [Mass/Vol] 10.6 g/dL 13.0-17.0 [facility] Leukocytes [#/volume] correc teressa for nucleated erythrocytes in Blood by Automated counOrdered By: Linda Rodriguez on 04-21-2023 WBC corrected for nucl RBC Auto (Bld) [#/Vol] 17.5 10*3/uL 4.1-10.5 [facility] Lymphocytes Auto (Bld) [#/Vo l]Ordered By: Linda Rodriguez on 04-21-2023 Lymphocytes (Bld) [#/Vol] 0.7 10*3/uL 1.00-4.8 [facility] Lymphocytes/100 WBC Auto (Bl d)Ordered By: Linda Rodriguez on 04-21-2023 Lymphocytes/100 WBC (Bld) 3.9 % . [facility] MCH Auto (RBC) [Entitic mass ]Ordered By: Linda Rodriguez on 04-21-2023 MCH (RBC) [Entitic mass] 31.1 pg 27.5-35.2 [facility] MCHC Auto (RBC) [Mass/Vol]Or dered By: Linda Rodriguez on 04-21-2023 MCHC (RBC) [Mass/Vol] 33.5 g/dL 32.5-35.6 [facility] MCV Auto (RBC) [Entitic vol] Ordered By: Linda Rodriguez on 04-21-2023 MCV (RBC) [Entitic vol] 92.8 fL 83.5-101 F [facility] Monocytes Auto (Bld) [#/Vol] Ordered By: Linda Rodriguez on 04-21-2023 Monocytes (Bld) [#/Vol] 0.8 10*3/uL 0.0-0.8 [facility] Monocytes/100 WBC Auto (Bld) Ordered By: Linda Rodriguez on 04-21-2023 Monocytes/100 WBC (Bld) 4.6 % . [facility] Neutrophils Auto (Bld) [#/Vo l]Ordered By: Linda Rodriguez on 04-21-2023 Neutrophils (Bld) [#/Vol] 16.0 10*3/uL 1.8-7.7 [facility] Neutrophils/100 WBC Auto (Bl d)Ordered By: Linda Rodriguez on 04-21-2023 Neutrophils/100 WBC (Bld) 91.3 % . [facility] No Panel InformationOrdered By: Linda Rodriguez on 04-21-2023 Estimated GFR (CKD-EPI) > 60.0 mL/Min [facility] Creatinine Clearance (Chem 54.31 [facility] Nucleated erythrocytes [Pres ence] in Blood by Automated countOrdered By: Linda Rodriguez on 04-21-2023 Nucleated RBC Auto Ql (Bld) 0.0 /100{WBC} 0-0.5 [facility] Platelet mean volume Auto (B ld) [Entitic vol]Ordered By: Linda Rodriguez on 04-21-2023 Platelet mean volume (Bld) [Entitic vol] 8.1 fL 6.6-10.1 [facility] Platelets Auto (Bld) [#/Vol] Ordered By: Linda Rodriguez on 04-21-2023 Platelets (Bld) [#/Vol] 244 10*3/uL 150-450 [facility] Potassium [Moles/volume] in Serum or PlasmaOrdered By: Linda Rodriguez on 04-21-2023 Potassium [Moles/Vol] 4.0 mmol/L 3.5-5.1 [facility] RBC Auto (Bld) [#/Vol]Ordere d By: Linda Rodriguez on 04-21-2023 RBC (Bld) [#/Vol] 3.41 10*6/uL 3.90-5.60 [facility] Redraw Potassiumon Potassium [Moles/Vol] 4.0 mmol/L Normal 3.5-5.1 [facility] Comment on above: Order Comment: SPECI MEN HEMOLYZED. NOTIFIED TROY. Result Comment: PERF ORMED BY: [place] [id number] PATHOLOGIST HARDBOARD PRESS OPERATOR NOAH PINEDA M.D. Performed By: #### C MP, CBC #### [address] Serum or plasma anion gap de terminationOrdered By: Linda Rodriguez on 04-21-2023 Anion gap [Moles/Vol] TNP [facility] Comment on above: Test not performed Sodium [Moles/volume] in Ser um or PlasmaOrdered By: Linda Rodriguez on 04-21-2023 Sodium [Moles/Vol] 137 mmol/L 136-145 [facility] Urea nitrogen [Mass/volume] in Serum or PlasmaOrdered By: Linda Rodriguez on 04-21-2023 Urea nitrogen [Mass/Vol] 19 mg/dL 7-25 [facility] WBC Auto (Bld) [#/Vol]Ordere d By: Linda Rodriguez on 04-21-2023 WBC (Bld) [#/Vol] 17.5 10*3/uL 4.1-10.5 [facility] ABO/Rh Retypeon 04-20-2023 ABO/RH Recheck Result Positive Normal [facility] Comment on above: Order Comment: Pleas e send a phleb per [place] in [place]. MLG Result Comment: PERF ORMED BY: [place] [id number] PATHOLOGIST HARDBOARD PRESS OPERATOR NOAH PINEDA M.D. Activated Clotting Timeon Activated Clotting Time POC 250 s High 90-139 [facility] Comment on above: Result Comment: Refe rence Range: 90-139 (Non-heparinized) PERFORMED BY: [place] [address] PATHOLOGIST HARDBOARD PRESS OPERATOR NOAH PINDEA M.D. Performed By: #### A CT #### [facility] [address] [place] [address] Blood activated clotting lynda e by coagulation assayOrdered By: Linda Rodriguez on 04-20-2023 ACT Coag (Bld) 250 s 90-139 [facility] Comment on above: Reference Range: 90- 139 (Non-heparinized) Glucose Poct Glucometerson 1 06-21-2022 Glucose [Mass/Vol] 156 mg/dL Normal [facility] Comment on above: Result Comment: [place] om Glucose Reference Range is dependent on time and content of last meal. Glucose of more than 200 mg/dL in a nonstressed, ambulatory subject supports the diagnosis of Diabetes Mellitus. Performed By: #### G LULS #### Point of Care testing , Glucose [Mass/Vol] 154 mg/dL Normal [facility] Comment on above: Result Comment: [place] Glucose Reference Range is dependent on time and content of last meal. Glucose of more than 200 mg/dL in a nonstressed, ambulatory subject supports the diagnosis of Diabetes Mellitus. PERFORMED BY: [place] [address] PATHOLOGIST HARDBOARD PRESS OPERATOR NOAH PINEDA M.D. Performed By: #### C MP, CBC #### [address] Commemt1 Glu2: Cleaned Meter Normal [facility] Comment on above: Result Comment: PERF ORMED BY: [place] [address] PATHOLOGIST HARDBOARD PRESS OPERATOR NOAH PINEDA M.D. Performed By: #### G LULS #### Point of Care testing , Performed By: #### I SCRE #### [place] [address] [place] Glucose [Mass/Vol] 118 mg/dL Normal [facility] Comment on above: Result Comment: [place] Glucose Reference Range is dependent on time and content of last meal. Glucose of more than 200 mg/dL in a nonstressed, ambulatory subject supports the diagnosis of Diabetes Mellitus. Performed By: #### I SCRE #### [facility] [address] [place] [id number] [facility] 04-20-2023 L Specimen: [id number] Received: 04/20/23 Status: KARIN Juvencio Num: [id number] Spec Type: Surgical Subm Dr: Linda Rodriguez MD Tissues: A Artery - Aneurysm (RT FEM ART ANERYSM) Procedures: Kathy MCLEAN/Phil L3 Age/ Patient Sex Location Account Attending Physician Sebastian Diego 77/M 4N [id number] Linda Rodriguez MD SPEC NUM: [id number] RECD: 04/20/23 STATUS: KARIN AMES NUM: [id number] ALLISON: 04/20/[address] [facility] [address]: Lidna Rodriguez MD ENTERED: 04/20/[address] [facility] [address]: SPEC TYPE: Surgical DEPT: S ENTERED BY: [id number] RECV BY: [id number] ORDERED: HE, Gross/Micro L3 ORDERED: HE, Gross/Micro L3 Pathological Diagnosis Right femoral artery aneurysm: [...] red-brown semisolid material with a laminated appearance.. Padder Cushion sections are submitted in one cassette labeled A1. Microscopic Description One H E slide reviewed. The microscopic examination confirms the diagnosis. CPT Codes 75536 Specimen: [id number] Received: 04/20/23 Status: KARIN Ames Num: [id number] Spec Type: Surgical Subm Dr: Linda Rodriguez MD Tissues: A Artery - Aneurysm (RT FEM ART ANERYSM) Procedures: HE, Gross/Micro L3 Patient: Sebastian Diego [id number] (Continued) Signed (signatur e on file) Niko Naranjo MD 04/21/232201 Normal [facility] LeukoReduced RBCon LeukoReduced RBC READY Normal [facility] Type and Screenon 04-20-2023 ABO and Rh group Nom (Bld) Blood group O Rh(D) positive [facility] Comment on above: Order Comment: Trans fuse now? N Result Comment: PERF ORMED BY: [facility] [address] [place] [address] PATHOLOGIST HARDBOARD PRESS OPERATOR NOAH PINEDA M.D. 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 Aneurysm DVT gout Hypercholesterolemi a Infection of urinary tract Straining to void [...] ? Bladder (more content not included)... Normal [facility] ED Note-Physicianon 04-17-20 ED Note-Physician [id number] 526#1.00TIFF [facility] Patient Educationon 04-17-20 Patient Education Urology [...] these instructions at home: Medicines ? Take vbqa-mqa-rganbvt and prescription medicines only as told by [...] provider. Document Revised: 01/09/2021 Document Reviewed: 01/09/2021 [employer] Patient Education ? 2022 [employer] Salma [facility] Urology Office/Clinic Noteon 04-17-2023 Urology Office/Clinic Note [...] & chen inserted. Pt then went to [facility] ER 04/09/23 due to catheter not draining. PVR 650ml. Catheter was replaced. +C&S 04/09/23 >100k proteus vulgaris & >100k Providencia rettgeri Pt is scheduled this coming up Thursday for surgery for his aneurysm at [facility]. He has also hurt his right wrist. [...] & chen inserted. Pt later presented to [facility] ER 04/09/23 due to catheter not [...] See #1 Follow-up With When Contact Information Sancho LEE MD, URL [address] [place] [address]- Additional Instructions: Prostate bx after aneurysm repair Patient Education Acute Urinary Retention, Male I, Jie Ruiz, personally scribed for Dr. Lee on 04/17/2023 10:26:56. . Documentation recorded by the scribe, Jie Ruiz, accurately reflects the services(s) I performe (more content not included)... Normal [facility] Comment on above: Result Comment: Elec tronically Signed By: Sancho LEE MD\.br\Date and Time Signed: 04/17/23 10:33 EST\.br\Electronically Co-Signed By: Jie Ruiz\.br\Date and Time Co-Signed: 04/17/23 10:27 EST\.br\Electronically Co-Signed By: Jie Ruiz\.br\Date and Time Co-Signed: 04/17/23 10:27 EST\.br\Electronically Co-Signed By: Jie Ruiz\.br\Date and Time Co-Signed: 04/17/23 10:29 EST XR wrist RT min 3V*on 2022 XR wrist RT min 3V* [facility] [place] [address] [place] [address] XRay Report Signed Patient: Sebastian Diego MR#: [id number] : 1945 Acct:[id number] Age/Sex: 77 / M ADM Date: 04/17/23 [...] Hugh Gates M.D.04/17/2023 5:21 PM Dictation Location: [place] [address] Transcribed By: [facility] 04/17/23 172 Dictated By: Hugh Gates DO 04/17/231717 Signed By: 04/17/23 172 Normal [facility] Lab Reportson 04-14-2023 Lab Reports [id number] F9#1.00TIFF Normal [facility] Lab Reports [id number] E0#1.00TIFF Normal [facility] Alanine aminotransferase [En zymatic activity/volume] in Serum or PlasmaOrdered By: Linda Rodriguez on 04-13-2023 ALT [Catalytic activity/Vol] 8 U/L 7-52 [facility] Albumin [Mass/volume] in Ser um or Plasma by Bromocresol green (BCG) dye binding methoOrdered By: Linda Rodriguez on 04-13-2023 Albumin BCG dye [Mass/Vol] 3.4 g/dL 3.5-5.7 [facility] Alkaline phosphatase [Enzyma tic activity/volume] in Serum or PlasmaOrdered By: Linda Rodriguez on 04-13-2023 ALP [Catalytic activity/Vol] 152 U/L 34-104 [facility] Aspartate aminotransferase [ Enzymatic activity/volume] in Serum or PlasmaOrdered By: Linda Rodriguez on 04-13-2023 AST [Catalytic activity/Vol] 13 U/L 13-39 [facility] Automated erythrocytes count in urine sediment (number/area)Ordered By: Linda Rodriguez on 04-13-2023 RBC Auto (Urine sed) [#/Area] 5-9 [HPF] 0-4 [facility] Automated leukocytes count i n urine sediment (number/area)Ordered By: Linda Rodriguez on 04-13-2023 WBC Auto (Urine sed) [#/Area] Innumerable [HPF] 0-4 [facility] Basophils Auto (Bld) [#/Vol] Ordered By: Linda Rodriguez on 04-13-2023 Basophils (Bld) [#/Vol] 0.1 10*3/uL 0.0-0.2 [facility] Basophils/100 WBC Auto (Bld) Ordered By: Linda Rodriguez on 04-13-2023 Basophils/100 WBC (Bld) 0.9 % . [facility] Bilirubin Test strip Ql (U)O rdered By: Linda Rodriguez on 04-13-2023 Bilirubin Ql (U) Negative Negative [facility] Bilirubin.total [Mass/volume ] in Serum or PlasmaOrdered By: Linda Rodriguez on 04-13-2023 Bilirubin [Mass/Vol] 1.0 mg/dL 0.3-1.0 [facility] Calcium [Mass/volume] in Ser um or PlasmaOrdered By: Linda Rodriguez on 04-13-2023 Calcium [Mass/Vol] 8.9 mg/dL 8.6-10.3 [facility] Carbon dioxide, total [Moles /volume] in Serum or PlasmaOrdered By: Linda Rodriguez on 04-13-2023 CO2 [Moles/Vol] 28.7 mmol/L 21.0-31.0 [facility] Chloride [Moles/volume] in S colleen or PlasmaOrdered By: Linda Rodriguez on 04-13-2023 Chloride [Moles/Vol] 106 mmol/L 98-107 [facility] Color Auto (U)Ordered By: Brian ttbethany Rodriguez on 04-13-2023 Color (U) Yellow Yellow [facility] Complete Blood Count Auto Di ffon 04-13-2023 Basophils (Bld) [#/Vol] 0.1 10*3/uL Normal 0.0-0.2 [facility] Comment on above: Result Comment: PERF ORMED BY: [facility] [address] [place] [address] PATHOLOGIST HARDBOARD PRESS OPERATOR NOAH PINEDA M.D. Performed By: #### C MP, CBC #### [facility] [address] Basophils/100 WBC (Bld) 0.9 % Normal . [facility] Comment on above: Performed By: #### C MP, CBC #### [facility] [address] [place] [address] [place] Eosinophils (Bld) [#/Vol] 0.3 10*3/uL Normal 0.0-0.45 [facility] Comment on above: Performed By: #### C MP, CBC #### [facility] [address] [place] [address] [place] Eosinophils/100 WBC (Bld) 4.9 % Normal . [facility] Comment on above: Performed By: #### C MP, CBC #### [facility] [address] Erythrocyte distribution width (RBC) [Ratio] 13.9 % Normal 12.0-14.8 [facility] Comment on above: Performed By: #### C MP, CBC #### [facility] [address] Hematocrit (Bld) [Volume fraction] 40.7 % Normal 38.8-50.0 [facility] Comment on above: Performed By: #### C MP, CBC #### [facility] [address] Hemoglobin (Bld) [Mass/Vol] 14.1 g/dL Normal 13.0-17.0 [facility] Comment on above: Performed By: #### C MP, CBC #### [facility] [address] [place] [address] [place] Lymphocytes (Bld) [#/Vol] 1.4 10*3/uL Normal 1.00-4.8 [facility] Comment on above: Performed By: #### C MP, CBC #### [facility] [address] [place] [address] [place] Lymphocytes/100 WBC (Bld) 19.8 % Normal . [facility] Comment on above: Performed By: #### C MP, CBC #### [facility] [address] MCH (RBC) [Entitic mass] 32.0 pg Normal 27.5-35.2 [facility] Comment on above: Performed By: #### C MP, CBC #### [facility] [address] MCV (RBC) [Entitic vol] 92.2 fL Normal 83.5-101 F [facility] Comment on above: Performed By: #### C MP, CBC #### [facility] [address] Mean Corpuscular HGB Conc 34.7 g/dL Normal 32.5-35.6 [facility] Comment on above: Performed By: #### C MP, CBC #### [facility] [address] [place] [address] [place] Monocytes (Bld) [#/Vol] 0.5 10*3/uL Normal 0.0-0.8 [facility] Comment on above: Performed By: #### C MP, CBC #### [facility] [address] [place] [address] [place] Monocytes/100 WBC (Bld) 7.1 % Normal . [facility] Comment on above: Performed By: #### C MP, CBC #### [facility] [address] [place] [address] [place] Neutrophils (Bld) [#/Vol] 4.7 10*3/uL Normal 1.8-7.7 [facility] Comment on above: Performed By: #### C MP, CBC #### [facility] [address] [place] [address] [place] Neutrophils/100 WBC (Bld) 67.3 % Normal . [facility] Comment on above: Performed By: #### C MP, CBC #### [facility] [address] [place] [address] [place] NRBC% 0.1 /100{WBC} Normal 0-0.5 [facility] Comment on above: Performed By: #### C MP, CBC #### [facility] [address] Platelet mean volume (Bld) [Entitic vol] 8.2 fL Normal 6.6-10.1 [facility] Comment on above: Performed By: #### C MP, CBC #### [address] Platelets (Bld) [#/Vol] 248 10*3/uL Normal 150-450 [facility] Comment on above: Performed By: #### C MP, CBC #### [address] RBC (Bld) [#/Vol] 4.41 10*6/uL Normal 3.90-5.60 [facility] Comment on above: Performed By: #### C MP, CBC #### [address] WBC (Bld) [#/Vol] 6.9 10*3/uL Normal 4.1-10.5 [facility] Comment on above: Performed By: #### C MP, CBC #### [address] Comprehensive Metabolic Pane saranya 04-13-2023 Albumin [Mass/Vol] 3.4 g/dL Low 3.5-5.7 [facility] Comment on above: Performed By: #### C MP, CBC #### [address] Albumin/Globulin [Mass ratio] 1.3 {ratio} Normal [facility] Comment on above: Performed By: #### C MP, CBC #### [address] ALP [Catalytic activity/Vol] 152 U/L High 34-104 [facility] Comment on above: Result Comment: PERF ORMED BY: [place] [address] PATHOLOGIST HARDBOARD PRESS OPERATOR NOAH PINEDA M.D. Performed By: #### C MP, CBC #### [address] ALT [Catalytic activity/Vol] 8 U/L Normal 7-52 [facility] Comment on above: Performed By: #### C MP, CBC #### [address] [place] [address] [place] Anion gap [Moles/Vol] 11.4 mmol/L Normal 6.0-15.0 [facility] Comment on above: Performed By: #### C MP, CBC #### [facility] [address] AST [Catalytic activity/Vol] 13 U/L Normal 13-39 [facility] Comment on above: Performed By: #### C MP, CBC #### [facility] [address] Bilirubin [Mass/Vol] 1.0 mg/dL Normal 0.3-1.0 [facility] Comment on above: Performed By: #### C MP, CBC #### [address] Calcium [Mass/Vol] 8.9 mg/dL Normal 8.6-10.3 [facility] Comment on above: Performed By: #### C MP, CBC #### [facility] [address] Chloride [Moles/Vol] 106 mmol/L Normal 98-107 [facility] Comment on above: Performed By: #### C MP, CBC #### [address] CO2 [Moles/Vol] 28.7 mmol/L Normal 21.0-31.0 [facility] Comment on above: Performed By: #### C MP, CBC #### [facility] [address] Creatinine [Mass/Vol] 1.04 mg/dL Normal 0.70-1.30 [facility] Comment on above: Performed By: #### C MP, CBC #### [place] [address] [place] GFR/1.73 sq M.predicted MDRD (S/P/Bld) [Vol rate/Area] mL/min/{1.73_m2} Normal [facility] Comment on above: Performed By: #### C MP, CBC #### [address] [place] [address] [place] Globulin (S) [Mass/Vol] 2.7 g/dL Normal F [facility] Comment on above: Performed By: #### C MP, CBC #### [address] Glucose [Mass/Vol] 101 mg/dL High 70-100 [facility] Comment on above: Result Comment: [place] Glucose Reference Range is dependent on time and content of last meal. Glucose of more than 200 mg/dL in a nonstressed, ambulatory subject supports the diagnosis of Diabetes Mellitus. ADA recommended reference range Performed By: #### C MP, CBC #### [address] Potassium [Moles/Vol] 3.1 mmol/L Low 3.5-5.1 [facility] Comment on above: Performed By: #### C MP, CBC #### [address] Protein [Mass/Vol] 6.1 g/dL Low 6.4-8.9 [facility] Comment on above: Performed By: #### C MP, CBC #### [address] Sodium [Moles/Vol] 143 mmol/L Normal 136-145 [facility] Comment on above: Performed By: #### C MP, CBC #### [place] [address] [place] Urea nitrogen [Mass/Vol] 13 mg/dL Normal 7-25 [facility] Comment on above: Performed By: #### C MP, CBC #### [place] [address] [place] Creatinine [Mass/volume] in Serum or PlasmaOrdered By: Linda Rodriguez on 04-13-2023 Creatinine [Mass/Vol] 1.04 mg/dL 0.70-1.30 [facility] Dipstick and Microscopicon 1 06-14-2022 Appearance (U) Turbid Critically abnormal Clear [facility] Comment on above: Order Comment: Name Collection Type:: Clean-Voided Midstream Performed By: #### C UU, ADDONUAPLUS #### [facility] [address] [place] [address] [place] Bacteria,Urine 4+ High None Seen [facility] Comment on above: Order Comment: Name Collection Type:: Clean-Voided Midstream Performed By: #### C UU, ADDONUAPLUS #### [place] [address] [place] Bilirubin,Urine Negative Normal Negative [facility] Comment on above: Order Comment: Name Collection Type:: Clean-Voided Midstream Performed By: #### C UU, ADDONUAPLUS #### [address] Color (U) Yellow Normal Yellow [facility] Comment on above: Order Comment: Name Collection Type:: Clean-Voided Midstream Performed By: #### C UU, ADDONUAPLUS #### [address] Glucose Ql (U) Normal Normal Normal [facility] Comment on above: Order Comment: Name Collection Type:: Clean-Voided Midstream Performed By: #### C UU, ADDONUAPLUS #### [place] [address] [place] Hyaline Casts,Urine 0-8 Normal 0-8 [facility] Comment on above: Order Comment: Name Collection Type:: Clean-Voided Midstream Performed By: #### C UU, ADDONUAPLUS #### [place] [address] [place] Ketones Ql (U) Negative Normal Negative [facility] Comment on above: Order Comment: Name Collection Type:: Clean-Voided Midstream Performed By: #### C UU, ADDONUAPLUS #### [address] [address] Leukocyte esterase Test strip Ql (U) 4+ High Negative [facility] Comment on above: Order Comment: Name Collection Type:: Clean-Voided Midstream Performed By: #### C UU, ADDONUAPLUS #### [facility] [address] [place] [address] [place] Nitrite,Urine Positive High Negative [facility] Comment on above: Order Comment: Name Collection Type:: Clean-Voided Midstream Performed By: #### C UU, ADDONUAPLUS #### [address] Occult Blood,Urine 3+ High Negative [facility] Comment on above: Order Comment: Name Collection Type:: Clean-Voided Midstream Result Comment: PERF ORMED BY: [place] [address] PATHOLOGIST HARDBOARD PRESS OPERATOR NOAH PINEDA M.D. Performed By: #### C UU, ADDONUAPLUS #### [address] pH (U) [pH] Normal 5.0-9.0 [facility] Comment on above: Order Comment: Name Collection Type:: Clean-Voided Midstream Performed By: #### C UU, ADDONUAPLUS #### [address] Protein (U) [Mass/Vol] 300 mg/dL High Negative [facility] Comment on above: Order Comment: Name Collection Type:: Clean-Voided Midstream Performed By: #### C UU, ADDONUAPLUS #### [facility] [address] [place] [address] [place] RBC,Urine 5-9 High 0-4 [facility] Comment on above: Order Comment: Name Collection Type:: Clean-Voided Midstream Performed By: #### C UU, ADDONUAPLUS #### [facility] [address] [place] [address] [place] Specificy [place],Urine 1.018 Normal 1.001-1.030 [facility] Comment on above: Order Comment: Name Collection Type:: Clean-Voided Midstream Performed By: #### C UU, ADDONUAPLUS #### [place] [address] [place] Squamous Epithelial Cell,Urine 0-1 Normal 0-2 [facility] Comment on above: Order Comment: Name Collection Type:: Clean-Voided Midstream Performed By: #### C UU, ADDONUAPLUS #### [facility] [address] [place] [address] Triple Phosphate Crystal,Urine 3+ Normal [facility] Comment on above: Order Comment: Name Collection Type:: Clean-Voided Midstream Performed By: #### C UU, ADDONUAPLUS #### [facility] [address] [place] [address] Urobilinogen,Urine Normal Normal Normal [facility] Comment on above: Order Comment: Name Collection Type:: Clean-Voided Midstream Performed By: #### C UU, ADDONUAPLUS #### [facility] [address] [place] [address] WBC,Urine Innumerable High 0-4 [facility] Comment on above: Order Comment: Name Collection Type:: Clean-Voided Midstream Performed By: #### C UU, ADDONUAPLUS #### [facility] [address] [place] [address] Yeast,Urine None Seen Normal None Seen [facility] Comment on above: Order Comment: Name Collection Type:: Clean-Voided Midstream Result Comment: PERF ORMED BY: [place] [address] PATHOLOGIST HARDBOARD PRESS OPERATOR NOAH PINEDA M.D. Performed By: #### C UU, ADDONUAPLUS #### [facility] [address] [place] [address] [place] Eosinophils Auto (Bld) [#/Vo l]Ordered By: Linda Rodriguez on 04-13-2023 Eosinophils (Bld) [#/Vol] 0.3 10*3/uL 0.0-0.45 [facility] Eosinophils/100 WBC Auto (Bl d)Ordered By: Linda Rodriguez on 04-13-2023 Eosinophils/100 WBC (Bld) 4.9 % . [facility] Erythrocyte distribution wid th Auto (RBC) [Ratio]Ordered By: Linda Rodriguez on 04-13-2023 Erythrocyte distribution width (RBC) [Ratio] 13.9 % 12.0-14.8 [facility] Globulin Calc (S) [Mass/Vol] Ordered By: Linda Rodriguez on 04-13-2023 Globulin (S) [Mass/Vol] 2.7 g/dL F [facility] Glucose [Mass/volume] in Ser um or PlasmaOrdered By: Linda Rodriguez on 04-13-2023 Glucose [Mass/Vol] 101 mg/dL 70-100 [facility] Comment on above: ADA recommended refe rence rangeRandom Glucose Reference Range is dependent on time and content of last meal. Glucose of more than 200 mg/dL in a nonstressed, ambulatory subject supports the diagnosis of Diabetes Mellitus. Hematocrit Auto (Bld) [Volum e fraction]Ordered By: Linda Rodrgiuez on 04-13-2023 Hematocrit (Bld) [Volume fraction] 40.7 % 38.8-50.0 [facility] Hemoglobin [Mass/volume] in BloodOrdered By: Linda Rodriguez on 04-13-2023 Hemoglobin (Bld) [Mass/Vol] 14.1 g/dL 13.0-17.0 [facility] Ketones Auto test strip (U) [Mass/Vol]Ordered By: Linda Rodriguez on 04-13-2023 Ketones (U) [Mass/Vol] Negative Negative [facility] - UrinalysisOrder ed By: Linda Rodriguez on 04-13-2023 Hyaline casts LM Ql (Urine sed) 0-8 [LPF] 0-8 [facility] Leukocytes [#/volume] correc teressa for nucleated erythrocytes in Blood by Automated counOrdered By: Linda Rodriguez on 04-13-2023 WBC corrected for nucl RBC Auto (Bld) [#/Vol] 6.9 10*3/uL 4.1-10.5 [facility] Lymphocytes Auto (Bld) [#/Vo l]Ordered By: Linda Rodriguez on 04-13-2023 Lymphocytes (Bld) [#/Vol] 1.4 10*3/uL 1.00-4.8 [facility] Lymphocytes/100 WBC Auto (Bl d)Ordered By: Linda Rodriguez on 04-13-2023 Lymphocytes/100 WBC (Bld) 19.8 % . [facility] MCH Auto (RBC) [Entitic mass ]Ordered By: Linda Rodriguez on 04-13-2023 MCH (RBC) [Entitic mass] 32.0 pg 27.5-35.2 [facility] MCHC Auto (RBC) [Mass/Vol]Or dered By: Linda Rodriguez on 04-13-2023 MCHC (RBC) [Mass/Vol] 34.7 g/dL 32.5-35.6 [facility] MCV Auto (RBC) [Entitic vol] Ordered By: Linda Rodriguez on 04-13-2023 MCV (RBC) [Entitic vol] 92.2 fL 83.5-101 F [facility] Magnesium ammonium phosphate crystal detectionOrdered By: Linda Rodriguez on 04-13-2023 Triple phosphate crystals LM Ql (Urine sed) 3+ [HPF] [facility] Monocytes Auto (Bld) [#/Vol] Ordered By: Linda Rodriguez on 04-13-2023 Monocytes (Bld) [#/Vol] 0.5 10*3/uL 0.0-0.8 [facility] Monocytes/100 WBC Auto (Bld) Ordered By: Linda Rodriguez on 04-13-2023 Monocytes/100 WBC (Bld) 7.1 % . F [facility] Neutrophils Auto (Bld) [#/Vo l]Ordered By: Linda Rodriguez on 04-13-2023 Neutrophils (Bld) [#/Vol] 4.7 10*3/uL 1.8-7.7 [facility] Neutrophils/100 WBC Auto (Bl d)Ordered By: Linda Rodriguez on 04-13-2023 Neutrophils/100 WBC (Bld) 67.3 % . [facility] Nitrite Test strip Ql (U)Ord ered By: Linda Rodriguez on 04-13-2023 Nitrite Ql (U) Positive Negative [facility] No Panel InformationOrdered By: Linda Rodriguez on 04-13-2023 Estimated GFR (CKD-EPI) > 60.0 mL/Min [facility] Creatinine Clearance (Chem N/A [facility] Nucleated erythrocytes [Pres ence] in Blood by Automated countOrdered By: Linda Rodriguez on 04-13-2023 Nucleated RBC Auto Ql (Bld) 0.1 /100{WBC} 0-0.5 [facility] Platelet mean volume Auto (B ld) [Entitic vol]Ordered By: Linda Rodriguez on 04-13-2023 Platelet mean volume (Bld) [Entitic vol] 8.2 fL 6.6-10.1 [facility] Platelets Auto (Bld) [#/Vol] Ordered By: Linda Rodriguez on 04-13-2023 Platelets (Bld) [#/Vol] 248 10*3/uL 150-450 [facility] Potassium [Moles/volume] in Serum or PlasmaOrdered By: Linda Rodriguez on 04-13-2023 Potassium [Moles/Vol] 3.1 mmol/L 3.5-5.1 [facility] Protein Auto test strip (U) [Mass/Vol]Ordered By: Linda Rodriguez on 04-13-2023 Protein (U) [Mass/Vol] 300 mg/dL Negative [facility] Protein [Mass/volume] in Ser um or PlasmaOrdered By: Linda Rodriguez on 04-13-2023 Protein [Mass/Vol] 6.1 g/dL 6.4-8.9 [facility] RBC Auto (Bld) [#/Vol]Ordere d By: Linda Rodriguez on 04-13-2023 RBC (Bld) [#/Vol] 4.41 10*6/uL 3.90-5.60 [facility] Serum or plasma albumin/glob ulin mass ratioOrdered By: Linda Rodriguez on 04-13-2023 Albumin/Globulin [Mass ratio] 1.3 {ratio} [facility] Serum or plasma anion gap de terminationOrdered By: Linda Rodriguez on 04-13-2023 Anion gap [Moles/Vol] 11.4 mmol/L 6.0-15.0 [facility] Sodium [Moles/volume] in Ser um or PlasmaOrdered By: Linda Rodriguez on 04-13-2023 Sodium [Moles/Vol] 143 mmol/L 136-145 [facility] Specific gravity Auto test s trip (U) [Rel density]Ordered By: Linda Rodriguez on 04-13-2023 Specific gravity (U) [Rel density] 1.018 1.001-1.030 [facility] Squamous epithelial cells de tection in urine sediment by light microscopyOrdered By: Linda Rodriguez on 04-13-2023 Epithelial cells.squamous LM Ql (Urine sed) 0-1 [HPF] 0-2 [facility] Urea nitrogen [Mass/volume] in Serum or PlasmaOrdered By: Linda Rodriguez on 04-13-2023 Urea nitrogen [Mass/Vol] 13 mg/dL 7-25 [facility] Urine Cultureon 04-13-2023 Bacteria identified Cx Nom (U) ORGANISM: Proteus vulgaris group (O:PROVULGRP) [place] Count >100,000 ORGANISM: Providencia rettgeri (O:PRORET) [place] Count 75,000 Aerobic BANG Charge (NMIC56) ------ SUSCEPTIBILITY ----- ORGANISM: O:PROVULGRP ANTIBIOTIC INTERPRETATION BANG Amikacin S <16 Amoxacillin/K Clavulanate S <8 Ampicillin/Sulbacta m S <4 Aztreonam S <4 Cefepime S <2 Ceftazidime S <1 Ceftriaxone S <1 Ciprofloxacin S <0.25 Ertapenem S <0.5 Gentamicin S <2 Levofloxacin S <0.5 Meropenem S <1 Piperacillin/Tazoba ctam S <8 Tobramycin S 4 Trimethoprim/Sulfam ethoxazole S <0.5 Aerobic BANG Charge (NMIC56) ------ SUSCEPTIBILITY ----- ORGANISM: O:PRORET ANTIBIOTIC INTERPRETATION BANG Amikacin S <16 Ampicillin/Sulbacta m IB <4 Aztreonam IB <4 Cefepime S <2 Ceftazidime IB 4 Ceftazidime/Avibact am S <4 Ceftolozane/Tazobac sargent S <2 Ceftriaxone IB <1 Cefuroxime IB <4 Ciprofloxacin S <0.25 Ertapenem S <0.5 Gentamicin S <2 Levofloxacin S <0.5 Meropenem S <1 Meropenem/Vaborbact am S <2 Piperacillin/Tazoba ctam IB <8 Tobramycin S <2 Trimethoprim/Sulfam ethoxazole S <0.5 S = SUSCEPTIBLE I = [...] RESISTANT TO ALL B-LACTAM DRUGS. PERFORMED BY: [place] [address] PATHOLOGIST HARDBOARD PRESS OPERATOR NOAH PINEDA M.D. [facility] Comment on above: Performed By: #### C UU, ADDONUAPLUS #### [address] Urine bacteria detection by automated methodOrdered By: Linda Rodriguez on 04-13-2023 Bacteria Auto Ql (U) 4+ None Seen [facility] Urine clarity by refractomet ry automatedOrdered By: Linda Rodriguez on 04-13-2023 Clarity Refractometry automated (U) Turbid Clear [facility] Urine culture routineOrdered By: Linda Rodriguez on 04-13-2023 Bacteria identified Cx Nom (U) Proteus vulgaris group [facility] Bacteria identified Cx Nom (U) Providencia rettgeri [facility] Urine glucose measurement by automated test strip (mass/volume)Ordered By: Linda Rodriguez on 04-13-2023 Glucose Auto test strip (U) [Mass/Vol] Normal mg/dL Normal [facility] Urine hemoglobin detection b y automated test stripOrdered By: Linda Rodriguez on 04-13-2023 Hemoglobin Auto test strip Ql (U) 3+ Negative [facility] Urine leukocyte esterase det ection by automated test stripOrdered By: Linda Rodriguez on 04-13-2023 Leukocyte esterase Auto test strip Ql (U) 4+ Negative [facility] Urobilinogen Auto test strip (U) [Mass/Vol]Ordered By: Lindatomas Rodriguez on 04-13-2023 Urobilinogen (U) [Mass/Vol] Normal mg/dL Normal [facility] WBC Auto (Bld) [#/Vol]Ordere d By: Linda Rodriguez on 04-13-2023 WBC (Bld) [#/Vol] 6.9 10*3/uL 4.1-10.5 [facility] Yeast detection in urine sed iment by light microscopyOrdered By: Linda Rodriguez on 04-13-2023 Yeast LM Ql (Urine sed) None seen [HPF] None Se en [facility] pH Auto test strip (U)Ordere d By: Linda Jose Luiscynthia on 04-13-2023 pH (U) [pH] 5.0-9.0 [facility] Consultation Noteon 03-30-20 Consultation Note [id number] FA#1.00TIFF Normal [facility] NM db perf SPECT rest stron 03-24-2023 NM db perf SPECT rest str [facility] [address] Nuclear Medicine Report Signed Patient: Sebastian Diego MR#: [id number] : 1945 Acct:[id number] Age/Sex: 77 / M ADM Date: 03/24/23 Loc: [place] Room: Type: [facility] Attending Dr: Glo Singleton MD Copies to: Glo Singleton MD Ordering Provider: Glo Singleton MD Date of Service: 03/24/23 NM/NM db perf SPECT rest str: Z01.818,I71.40,H43. 813,R94.31 NUCLEAR MYOCARDIAL PERFUSION DATE OF PROCEDURE: 03/24/2023 [...] Glo Singleton MD 03/24/231832 Signed By: 03/24/231836 Normal [facility] RAD - CT Reporton 03-13-2023 RAD - CT Report [id number] FF#1.00TIFF Normal [facility] RAD - Ultrasound Reporton RAD - Ultrasound Report [id number] AE#1.00TIFF Normal [facility] US arterial duplex LE RTon 1 05-11-2022 US arterial duplex LE RT [facility] [place] [address] Ultrasound Report Signed Patient: Sebastian Diego MR#: [id number] : 1945 Acct:[id number] Age/Sex: 77 / M ADM Date: 03/11/23 [facility] Room: Type: [facility] Attending Dr: Linda Rodriguez MD Ordering [...] Linda Rodriguez MD03/11/2023 12:17 PM Dictation Location: [place] [address] Tech: Osiris Leal Transcribed By: SERGE 03/11/231216 Dictated By: Linda Rodriguez MD 03/11/231215 Signed By: 03/11/23 [address] [facility] [address] angio abdomen pelvison CT angio abdomen pelvis [facility] [place] [address] CT Scan Report Signed Patient: Sebastian Diego MR#: [id number] : 1945 Acct:[id number] Age/Sex: 77 / M ADM Date: 02/26/23 Loc: CT Room: Type: [facility] Attending Dr: Linda Rodriguez MD Copies [...] Bases: Calcified granuloma right middle lobe. Bibasilar atelectasis/scarrin g. Organs:Abdominal aorta which is moderate calcification without [...] identified, largest stone measuring 6 mm. Prostatomegaly.] Peritoneum/Retroper itoneum:No free air, free fluid or lymphadenopathy.[ Abd wall/Bones:Abdomina l wall demonstrates no acute findings. Osseous structures [...] Sykes Jr., D.ORobles02/26/2023 10:51 AM Dictation Location: [place] [address] Transcribed By: [facility] 02/26/23 1051 Dictated By: Jeff Sykes Jr, DO 02/26/23 1036 Signed By: 02/26/23 1051 [facility] Creatinine (Bld) [Mass/Vol]O rdered By: Linda Rodriguez on 02-26-2023 Creatinine [Mass/Vol] 1.1 mg/dL 0.6-1.3 [facility] Comment on above: ER/ESD physician is notified/shown all ISTAT results.Critical values may be confirmed by laboratory testing ifdeemed necessary by ER attending doctor. Consultation Noteon 02-26-20 23 Consultation Note [id number] 05#1.00TIFF Normal [facility] Physician Referralon 023 Physician Referral [id number] 9E#1.00TIFF Normal [facility] RAD - MRI Reporton 3 RAD - MRI Report [id number] D7#1.00TIFF Normal [facility] Creatinine (Bld) [Mass/Vol]O rdered By: Sancho Lee on 02-10-2023 Creatinine [Mass/Vol] 1.1 mg/dL 0.6-1.3 [facility] Comment on above: ER/ESD physician is notified/shown all ISTAT results.Critical values may be confirmed by laboratory testing ifdeemed necessary by ER attending doctor. ISTAT XRay CREon 02-10-2023 Creatinine [Mass/Vol] 1.1 mg/dL Normal 0.6-1.3 [facility] Comment on above: Result Comment: ER/E SD physician is notified/shown all ISTAT results. Critical values may be confirmed by laboratory testing if deemed necessary by ER attending doctor. Performed By: #### I SCRE #### [facility] [address] [place] [address] ISTAT GFR > 60.0 [facility] Comment on above: Result Comment: PERF ORMED BY: [place] [address] PATHOLOGIST HARDBOARD PRESS OPERATOR NOAH PINEDA M.D. Performed By: #### I SCRE #### [facility] [address] [place] [address] MR prostate wo/w conon 02-10 MR prostate wo/w con [facility] [address] [place] [address] [place] [address] MRI Report Signed Patient: Sebastian Diego MR#: [id number] : 1945 Acct:[id number] Age/Sex: 77 / M ADM Date: 02/10/23 Loc: Room: Type: [facility] Attending Dr: Sancho Lee MD Copies [...] and series 700 image 14 for example. Central/Transitiona l Zone: BPH changes. Seminal Vesicles: Likely invasion [...] Sykes Jr., D.ORobles02/10/2023 3:47 PM Dictation Location: [id number]-08 Transcribed By: SERGE 02/10/23 1547 Dictated By: Jeff Sykes Jr, 02/10/23 1534 Signed By: 02/10/23 154 Normal [facility] No Panel InformationOrdered By: Sancho Lee on 02-10-2023 Bedside Estimated GFR (eGFR) > 60.0 [facility] Ambulatory Visit Summaryon 0 11-21-2022 Ambulatory [...] DEY, [place] This Is Your Medications List [facility] Prescription (RA VITAMIN D3 2,000 UNIT SFGL) aspirin (aspirin 81 mg Oral EC Tab) atorvastatin (Lipitor 10 mg Tab) clopidogrel (clopidogrel 75 mg Tab) duloxetine (duloxetine 30 mg oral delayed release capsule) ibuprofen (ibuprofen 200 mg oral capsule) levothyroxine (levothyroxine 50 mcg (0.05 mg) Tab) lisinopril (lisinopril 5 mg Tab) metformin (metformin 500 mg Tab) potassium chloride (Potassium Chloride (Ncs-Csgm-Ubr 10) 10 mEq oral tablet, extended release) [...] Mouth Every day Refills: 3 Pickup at [id number] Unchanged aspirin (aspirin 81 mg Oral EC [...] SFGL) 0 Unchanged potassium chloride (Potassium Chloride (Umv-Zesq-Nof 10) 10 mEq oral tablet, extended release) Unchanged pregabalin (Lyrica 150 mg Cap) By Mouth 2 times a day Pharmacy Information [id number]: [address], [place] [id number] [phone] Allergies beta blockers (Weakness, Vomiting, Dizziness) Problems [...] longer receiving treatment for. Aneurysm DVT gout Hypercholesterolemi a Infection of urinary tract Straining to void Urine frequency Normal [facility] Lab Reportson 11-21-2022 Lab Reports [id number] E9#[id number]:127 Normal [facility] Patient Educationon 11-22-19 23 Patient Education Oncology Prostate Cancer Screening [...] Where to find more information ? The [place] Cancer [employer]: www.cancer.org ? [place] [employer]: www.auanet.org Contact a health care [...] adds flu (more content not included)... Normal [facility] Urology Office/Clinic Noteon 11-21-2022 Urology Office/Clinic Note [...] Sancho Narayanan, URL [facility] [address] [place] [address]- Additional Instructions: sched MRI Patient Education Prostate [...] Weak urinary stream Historical Aneurysm DVT gout Hypercholesterolemi a Infection of urinary tract Straining to void [...] BID metformin 500 mg Tab Potassium Chloride (Vxt-Cmhl-Dxz 10) 10 mEq oral tablet, extended release [...] Stroke: Mother (more content not included)... Normal [facility] Comment on above: Result Comment: Elec tronically Signed By: Sancho LEE MD\.br\Date and Time Signed: 11/21/22 10:29 EDT\.br\Electronically Co-Signed By: Zayda Olivares\.br\Date and Time Co-Signed: 11/21/22 10:26 EDT Ambulatory Visit Summaryon 0 09-25-2022 Ambulatory Visit Summary SEBASTIAN DIEGO :1945 Visit [...] 500 mg Tab) potassium chloride (Potassium Chloride (Wak-Tyqp-Rui 10) 10 mEq oral tablet, extended release) pregabalin (Lyrica 150 mg Cap) Procedures Performed Cystoscopy and retrograde pyelography (04/18/2021), Cystoscopy (01/11/2019), Repair of aneurysm (2009), Arthroscopy of knee (1967), Amputation of leg, Colonoscopy, Excision of cataract, tonsillectomy. Discharge Vitals Heart Rate (Peripheral) 68 Respiratory Rate 16 Blood Pressure 130/70 What to do next You Need to Schedule the Following Appointments Follow Up with Sancho LEE MD, URL When: Where: [facility] [address] [place] [address]- Medications What How Much When Instructions Unchanged [...] or concerns Unchanged potassium chloride (Potassium Chloride (Mjy-Aoco-Ouk 10) 10 mEq oral tablet, extended release) [...] longer receiving treatment for. Aneurysm DVT gout Hypercholesterolemi a Infection of urinary tract Straining to void [...] been diagnosed w (more content not included)... [facility] C Urineon 09-24-2022 Bacteria identified Cx Nom [...] Locations R1: This test was performed at: [facility], [address] [place] [address], [facility]- , [place], [facility] Comment on above: Performed By: #### [id number] ####[facility] [id number] [place] [address] Patient Educationon 09-23-19 23 Patient Education Oncology [...] Where to find more information ? The [place] Cancer [employer]: www.cancer.org ? [place] [employer]: www.auanet.org Contact a health care [...] adds flu (more content not included)... Normal [facility] PSA, FREE AND TOTAL RATIOon 08-27-2022 % Free PSA 20.8 % Normal [facility] Comment on above: Result Comment: The table [...] men. Performed By: #### P SAFREE #### [facility] [address] [place] [address] Dr. Daniel Hahn Prostate specific Ag [Mass/Vol] 13.5 ng/mL Critically high 0.0-4.0 [facility] Comment on above: Result Comment: [place] GARLANDIA methodology. . According to the [place] [employer], Serum PSA should decrease and [...] disease. Performed By: #### P SAFREE #### [facility] [address] [place] [address] Dr. Daniel Hahn PSA, Free 2.81 ng/mL Normal N/A [facility] Comment on above: Result Comment: [place] miller ECLIA methodology. Performed By: #### P SAFREE #### [facility] [address] [place] [address] Dr. Daniel Hahn CBC AUTO DIFFon 08-25-2022 BASO # 0.1 103/ul Normal 0.0-0.1 [facility] Comment on above: Performed By: #### C BC #### [facility] [address] [place] [address] Dr. Daniel Hahn Basophils/100 WBC (Bld) 0.6 % Normal 0.2-2.0 [facility] Comment on above: Performed By: #### C BC #### [facility] [address] [place] [address] Dr. Daniel Hahn EO # 0.4 103/ul Normal 0.0-0.7 [facility] Comment on above: Performed By: #### C BC #### [facility] [address] [place] [address] Dr. Daniel Hahn Eosinophils/100 WBC (Bld) 5.6 % Normal 0.9-7.0 [facility] Comment on above: Performed By: #### C BC #### [facility] [address] [place] [address] Dr. Daniel Hahn Erythrocyte distribution width (RBC) [Ratio] 13.7 % Normal 11.0-15.0 [facility] Comment on above: Performed By: #### C BC #### [facility] [address] [place] [address] Dr. Daniel Hahn Hematocrit (Bld) [Volume fraction] 47.0 % Normal 42.0-54.0 [facility] Comment on above: Performed By: #### C BC #### [facility] [address] [place] [address] Dr. Daniel Hahn Hemoglobin (Bld) [Mass/Vol] 15.6 g/dL Normal 14.0-18.0 [facility] Comment on above: Performed By: #### C BC #### [facility] [address] [place] [address] Dr. Daniel Hahn IG # 0.02 10e3/ul Normal 0.00-0.03 [facility] Comment on above: Performed By: #### C BC #### [facility] [address] [place] [address] Dr. Daniel Hahn IG % 0.3 % Normal 0.0-0.5 [facility] Comment on above: Performed By: #### C BC #### [facility] [address] [place] [address] Dr. Daniel Hahn LYMPH # 1.8 103/ul Normal 1.2-3.8 [facility] Comment on above: Performed By: #### C BC #### [facility] [address] [place] [address] Dr. Daniel Hahn Lymphocytes/100 WBC (Bld) 22.8 % Normal 20.5-60.0 [facility] Comment on above: Performed By: #### C BC #### [facility] [address] [address] [address] Daniel Hahn MANUAL DIFF REQ NO Normal [facility] Comment on above: Performed By: #### C BC #### [facility] [address] [place] [address] Dr. Daniel Hahn MCH (RBC) [Entitic mass] 31.5 pg Normal 25.9-34.0 [facility] Comment on above: Performed By: #### C BC #### [facility] [address] [place] [address] Dr. Daniel Hahn MCHC (RBC) [Mass/Vol] 33.2 g/dL Normal 29.9-35.2 [facility] Comment on above: Performed By: #### C BC #### [facility] [address] [place] [address] Dr. Daniel Hahn MCV (RBC) [Entitic vol] 94.8 fL Critically high 80.0-94 .0 [facility] Comment on above: Performed By: #### C BC #### [facility] [address] [place] [address] Dr. Daniel Hahn MONO # 0.6 103/ul Normal 0.3-0.8 [facility] Comment on above: Performed By: #### C BC #### [facility] [address] [place] [address] Dr. Daniel Hahn Monocytes/100 WBC (Bld) 7.9 % Normal 1.7-12.0 [facility] Comment on above: Performed By: #### C BC #### [facility] [address] [place] [address] Dr. Daniel Hahn NEUT # 4.9 103/ul Normal 1.4-6.5 [facility] Comment on above: Performed By: #### C BC #### [facility] [address] [place] [address] Dr. Daniel Hahn Neutrophils/100 WBC (Bld) 62.8 % Normal 43.0-75.0 [facility] Comment on above: Performed By: #### C BC #### [facility] [address] [address] [address] Daniel Hahn Platelet mean volume (Bld) [Entitic vol] 9.9 fL Normal 9.5-13.5 [facility] Comment on above: Performed By: #### C BC #### [facility] [address] [place] [address] Dr. Daniel Hahn PLT 199 103/ul Normal 150-450 [facility] Comment on above: Performed By: #### C BC #### [facility] [address] [place] [address] Dr. Daniel Hahn RBC 4.96 106/ul Normal 4.70-6.10 [facility] Comment on above: Performed By: #### C BC #### [facility] [address] [place] [address] Dr. Daniel Hahn WBC 7.7 103/ul Normal 4.0-11.0 [facility] Comment on above: Performed By: #### C BC #### [facility] [address] [place] [address] Dr. Daniel Hahn FREE T4on 08-25-2022 Free T4 [Mass/Vol] 0.94 ng/dL Normal 0.76-1.46 The [facility] Comment on above: Performed By: #### P SAFREE #### [facility] [address] [place] [address] Dr. Daniel Hahn GLYCOHEMOGLOBIN A1Con 2022 ADA RECOMMENDATION SEE BELOW Normal The [facility] Comment on above: Result Comment: ADA RECOMMENDED LIMIT 4.0 - 6.0 ADA THERAPEUTIC TARGET < 7.0 ACTION SUGGESTED > 7.0 Performed By: #### A 1C #### [facility] [address] [place] [address] Dr. Daniel Hahn Glucose [Mass/Vol] 126 mg/dL Normal The [facility] Comment on above: Performed By: #### A 1C #### [facility] [address] [place] [address] Dr. Daniel Hahn HbA1c (Bld) [Mass fraction] 6.0 % Normal 4.5-6.2 [facility] Comment on above: Performed By: #### A 1C #### [facility] [address] [address] [address] Daniel Hahn LIPID PROFILEon 08-25-2022 CHOL-HDL RATIO NORM SEE BELOW Normal [facility] Comment on above: Result Comment: 3.3 - 4.4 LOW RISK 4.4 - 7.1 AVERAGE RISK 7.1 - 11.0 MODERATE RISK >11.0 HIGH RISK Performed By: #### B MP, LIVER #### [facility] [address] [address] [address] Daniel Hahn Cholesterol [Mass/Vol] 180 mg/dL Normal <=200 [facility] Comment on above: Performed By: #### B MP, LIVER #### [facility] [address] [place] [address] Dr. Daniel Hahn Cholesterol in HDL [Mass/Vol] 36 mg/dL Critically low 40-60 [facility] Comment on above: Performed By: #### B IGNACIO, LIVER #### [facility] [address] [place] [address] Dr. Daniel Hahn Cholesterol in LDL [Mass/Vol] 85.6 mg/dL Normal [facility] Comment on above: Performed By: #### B MP, LIVER #### [facility] [address] [place] [address] Dr. Daniel Hahn Cholesterol.total/Choles terol in HDL [Mass ratio] 5.0 {ratio} Normal [facility] Comment on above: Performed By: #### B MP, LIVER #### [facility] [address] [place] [address] Dr. Danile Hahn HDL NORMAL > or = 60 mg/dl - LOW CARDIOVASCULAR RISK <40 mg/dl - HIGH CARDIOVASCULAR RISK Normal [facility] Comment on above: Performed By: #### B MP, LIVER #### [facility] [address] [place] [address] Dr. Daniel Hahn LDL CALC NORMAL SEE BELOW Normal [facility] Comment on above: Result Comment: <100 mg/dl OPTIMAL 100 - 129 mg/dl NEAR OR ABOVE OPTIMAL 130 - 159 mg/dl BORDERLINE HIGH 160 - 189 mg/dl HIGH >190 mg/dl VERY HIGH Performed By: #### B MP, LIVER #### [facility] [address] [place] [address] Dr. Daniel Hahn Triglyceride [Mass/Vol] 292 mg/dL Critically high <=150 [facility] Comment on above: Performed By: #### B MP, LIVER #### [facility] [address] [place] [address] Dr. Daniel Hahn VLDL CALC 58.4 mg/dL Normal [facility] Comment on above: Performed By: #### B MP, LIVER #### [facility] [address] [place] [address] Dr. Daniel Hahn PROF 14(COMP METB)on 023 Albumin [Mass/Vol] 3.3 g/dL Critically low 3.4-5.0 [facility] Comment on above: Performed By: #### B MP, LIVER #### [facility] [address] [place] [address] Dr. Daniel Hahn Albumin/Globulin [Mass ratio] 1.0 {ratio} Normal [facility] Comment on above: Performed By: #### B MP, LIVER #### [facility] [address] [place] [address] Dr. Daniel Hahn ALP [Catalytic activity/Vol] 108 U/L Normal 46-116 [facility] Comment on above: Performed By: #### B MP, LIVER #### [facility] [address] [place] [address] Dr. Daniel Hahn ALT [Catalytic activity/Vol] 10 U/L Critically low 16-63 [facility] Comment on above: Performed By: #### B MP, LIVER #### [facility] [address] [place] [address] Dr. Daniel Hahn Anion gap [Moles/Vol] 9.1 mmol/L Normal [facility] Comment on above: Performed By: #### B MP, LIVER #### [facility] [address] [place] [address] Dr. Daniel Hahn AST [Catalytic activity/Vol] 12 U/L Critically low 15-37 [facility] Comment on above: Performed By: #### B MP, LIVER #### [facility] [address] [address] [address] Daniel Hahn Bilirubin [Mass/Vol] 0.6 mg/dL Normal 0.2-1.0 [facility] Comment on above: Performed By: #### B MP, LIVER #### [facility] [address] [place] [address] Dr. Daniel Hahn Calcium [Mass/Vol] 9.1 mg/dL Normal 8.5-10.1 [facility] Comment on above: Performed By: #### B MP, LIVER #### [facility] [address] [place] [address] Dr. Daniel Hahn Chloride [Moles/Vol] 105 mmol/L Normal 98-107 [facility] Comment on above: Performed By: #### B MP, LIVER #### [facility] [address] [place] [address] Dr. Daniel Hahn CO2 [Moles/Vol] 28.7 mmol/L Normal 21.0-32.0 [facility] Comment on above: Performed By: #### B MP, LIVER #### [facility] [address] [place] [address] Dr. Daniel Hahn Creatinine [Mass/Vol] 1.20 mg/dL Normal 0.70-1.30 [facility] Comment on above: Performed By: #### B MP, LIVER #### [facility] [address] [place] [address] Dr. Daniel Hahn EGFR-AF BERMUDIAN >60 Normal >=60 [facility] Comment on above: Performed By: #### B MP, LIVER #### [facility] [address] [place] [address] Dr. Daniel Hahn EGFR-NON AF BERMUDIAN 59 mL/min/1.73m2 Critically low >=60 [facility] Comment on above: Performed By: #### B MP, LIVER #### [facility] [address] [place] [address] Dr. Daniel Hahn Globulin (S) [Mass/Vol] 3.4 g/dL Normal [facility] Comment on above: Performed By: #### B MP, LIVER #### [facility] [address] [address] [address] Daniel Hahn Glucose [Mass/Vol] 115 mg/dL Critically high 74-106 [facility] Comment on above: Performed By: #### B MP, LIVER #### [facility] [address] [address] [address] Daniel Hahn Potassium [Moles/Vol] 3.8 mmol/L Normal 3.5-5.1 [facility] Comment on above: Performed By: #### B MP, LIVER #### [facility] [address] [address] [address] Daniel Hahn Protein [Mass/Vol] 6.7 g/dL Normal 6.4-8.2 [facility] Comment on above: Performed By: #### B MP, LIVER #### [facility] [address] [address] [address] Daniel Hahn Sodium [Moles/Vol] 139 mmol/L Normal 136-145 [facility] Comment on above: Performed By: #### B MP, LIVER #### [facility] [address] [address] [address] Daniel Hahn Urea nitrogen [Mass/Vol] 17.0 mg/dL Normal 7.0-18.0 [facility] Comment on above: Performed By: #### B MP, LIVER #### [facility] [address] [address] [address] Daniel Hahn Urea nitrogen/Creatinine [Mass ratio] 14.2 mg/mg Normal [facility] Comment on above: Performed By: #### B MP, LIVER #### [facility] [address] [address] [address] Daniel Hahn TSHon 08-25-2022 TSH 0.357 uIU/mL Critically low 0.358-3.740 [facility] Comment on above: Performed By: #### B MP, LIVER #### [facility] [address] [address] [address] Daniel Hahn VITAMIN D 25 OHon 04-24-2023 VIT D 25-OH 58.3 ng/mL Normal [facility] Comment on above: Performed By: #### P SAFREE #### [facility] [address] [place] [address] Dr. Daniel Hahn VIT D RANGES SEE BELOW Normal [facility] Comment on above: Result Comment: <20 ng/mL Vit D deficient 20 - <30 ng/mL Vit D insufficient 30 - 100 ng/mL Vit D sufficient >100 ng/mL Potential Toxicity Performed By: #### P SAFREE #### [facility] [address] [place] [address] Dr. Daniel Hahn CARDIAC EWELINA 3-6on 2 CK [Catalytic activity/Vol] 212 U/L Normal 39-308 [facility] Comment on above: Performed By: #### B MP, TSH #### [facility] [address] [place] [address] Dr. Daniel Hahn CK.MB [Mass/Vol] 3.01 ng/mL Normal <=3.[address] [facility] Comment on above: Performed By: #### B MP, TSH #### [facility] [address] [place] [address] Dr. Daniel Hahn HSTROP 19.0 pg/mL Normal 4.0-76.1 [facility] Comment on above: Result Comment: CUT- OFF POINTS HAVE BEEN ESTABLISHED BASED ON THE FOURTH UNIVERSAL DEFINITIONS OF MYOCARDIAL INFARCTION. THE UPPER REFERENCE LIMIT (URL) OF TROPONIN, DEFINED THE 99TH PERCENTILE OF cTnI DISTRIBUTION IN A REFERENCE POPULATION, HAS BEEN CONFIRMED THE DECISION THRESHOLD FOR OK DIAGNOSIS. Performed By: #### B IGNACIO, TSH #### [facility] [address] [place] [address] Dr. Daniel Hahn CARDIAC EWELINA ADMITon 022 CK [Catalytic activity/Vol] 128 U/L Normal 39-308 [facility] Comment on above: Performed By: #### B MP, TSH #### [facility] [address] [place] [address] Dr. Daniel Hahn CK.MB [Mass/Vol] 2.01 ng/mL Normal <=3.[address] [facility] Comment on above: Performed By: #### B MP, TSH #### [facility] [address] [place] [address] Dr. Daniel Hahn HSTROP 36.0 pg/mL Normal 4.0-76.1 [facility] Comment on above: Result Comment: CUT- OFF POINTS HAVE BEEN ESTABLISHED BASED ON THE FOURTH UNIVERSAL DEFINITIONS OF MYOCARDIAL INFARCTION. THE UPPER REFERENCE LIMIT (URL) OF TROPONIN, DEFINED THE 99TH PERCENTILE OF cTnI DISTRIBUTION IN A REFERENCE POPULATION, HAS BEEN CONFIRMED THE DECISION THRESHOLD FOR OK DIAGNOSIS. Performed By: #### B MP, TSH #### [facility] [address] [place] [address] Dr. Daniel Hahn DB 167 ng/mL Critically high 16-96 [facility] Comment on above: Performed By: #### B MP, TSH #### [facility] [address] [place] [address] Dr. Daniel Hahn CK [Catalytic activity/Vol] 159 U/L Normal 39-308 [facility] Comment on above: Performed By: #### B MP, TSH #### [facility] [address] [place] [address] Dr. Daniel Hahn CK.MB [Mass/Vol] 2.99 ng/mL Normal <=3.[address] [facility] Comment on above: Performed By: #### B MP, TSH #### [facility] [address] [place] [address] Dr. Daniel Hahn HSTROP 15.8 pg/mL Normal 4.0-76.1 [facility] Comment on above: Result Comment: CUT- OFF POINTS HAVE BEEN ESTABLISHED BASED ON THE FOURTH UNIVERSAL DEFINITIONS OF MYOCARDIAL INFARCTION. THE UPPER REFERENCE LIMIT (URL) OF TROPONIN, DEFINED THE 99TH PERCENTILE OF cTnI DISTRIBUTION IN A REFERENCE POPULATION, HAS BEEN CONFIRMED THE DECISION THRESHOLD FOR OK DIAGNOSIS. Performed By: #### B MP, TSH #### [facility] [address] [place] [address] Dr. Daniel Hahn DB 307 ng/mL Critically high 16-96 [facility] Comment on above: Performed By: #### B MP, TSH #### [facility] [address] [place] [address] Dr. Daniel Hahn CBC AUTO DIFFon 01-14-2022 BASO # 0.1 103/ul Normal 0.0-0.1 [facility] Comment on above: Performed By: #### B MP, TSH #### [facility] [address] [place] [address] Dr. Daniel Hahn Basophils/100 WBC (Bld) 0.6 % Normal 0.2-2.0 [facility] Comment on above: Performed By: #### B MP, TSH #### [facility] [address] [place] [address] Dr. Daniel Hahn EO # 0.1 103/ul Normal 0.0-0.7 [facility] Comment on above: Performed By: #### B MP, TSH #### [facility] [address] [place] [address] Dr. Daniel Hahn Eosinophils/100 WBC (Bld) 1.1 % Normal 0.9-7.0 [facility] Comment on above: Performed By: #### B IGNACIO, TSH #### [facility] [address] [place] [address] Dr. Daniel Hahn Erythrocyte distribution width (RBC) [Ratio] 13.6 % Normal 11.0-15.0 [facility] Comment on above: Performed By: #### B MP, TSH #### [facility] [address] [place] [address] Dr. Daniel Hahn Hematocrit (Bld) [Volume fraction] 43.4 % Normal 42.0-54.0 [facility] Comment on above: Performed By: #### B MP, TSH #### [facility] [address] [place] [address] Dr. Daniel Hahn Hemoglobin (Bld) [Mass/Vol] 14.1 g/dL Normal 14.0-18.0 [facility] Comment on above: Performed By: #### B MP, TSH #### [facility] [address] [place] [address] Dr. Daniel Hahn IG # 0.02 10e3/ul Normal 0.00-0.03 [facility] Comment on above: Performed By: #### B MP, TSH #### [facility] [address] [address] [address] Daniel Hahn IG % 0.2 % Normal 0.0-0.5 [facility] Comment on above: Performed By: #### B MP, TSH #### [facility] [address] [address] [address] Dainel Hahn LYMPH # 2.3 103/ul Normal 1.2-3.8 [facility] Comment on above: Performed By: #### B MP, TSH #### [facility] [address] [address] [address] Daniel Hahn Lymphocytes/100 WBC (Bld) 25.5 % Normal 20.5-60.0 [facility] Comment on above: Performed By: #### B MP, TSH #### [facility] [address] [place] [address] Dr. Daniel Hahn MANUAL DIFF REQ NO Normal [facility] Comment on above: Performed By: #### B MP, TSH #### [facility] [address] [place] [address] Dr. Daniel Hahn MCH (RBC) [Entitic mass] 32.0 pg Normal 25.9-34.0 [facility] Comment on above: Performed By: #### B MP, TSH #### [facility] [address] [place] [address] Dr. Daniel Hahn MCHC (RBC) [Mass/Vol] 32.5 g/dL Normal 29.9-35.2 [facility] Comment on above: Performed By: #### B MP, TSH #### [facility] [address] [place] [address] Dr. Daniel Hahn MCV (RBC) [Entitic vol] 98.4 fL Critically high 80.0-94 .0 [facility] Comment on above: Performed By: #### B MP, TSH #### [facility] [address] [place] [address] Dr. Daniel Hahn MONO # 0.8 103/ul Normal 0.3-0.8 [facility] Comment on above: Performed By: #### B MP, TSH #### [facility] [address] [place] [address] Dr. Daniel Hahn Monocytes/100 WBC (Bld) 8.8 % Normal 1.7-12.0 [facility] Comment on above: Performed By: #### B MP, TSH #### [facility] [address] [place] [address] Dr. Daniel Hahn NEUT # 5.6 103/ul Normal 1.4-6.5 [facility] Comment on above: Performed By: #### B MP, TSH #### [facility] [address] [place] [address] Dr. Daniel Hahn Neutrophils/100 WBC (Bld) 63.8 % Normal 43.0-75.0 [facility] Comment on above: Performed By: #### B MP, TSH #### [facility] [address] [place] [address] Dr. Daniel Hahn Platelet mean volume (Bld) [Entitic vol] 10.0 fL Normal 9.5-13.5 [facility] Comment on above: Performed By: #### B MP, TSH #### [facility] [address] [place] [address] Dr. Daniel Hahn PLT 212 103/ul Normal 150-450 [facility] Comment on above: Performed By: #### B MP, TSH #### [facility] [address] [place] [address] Dr. Daniel Hahn RBC 4.41 106/ul Critically low 4.70-6.10 [facility] Comment on above: Performed By: #### B MP, TSH #### [facility] [address] [place] [address] Dr. Daniel Hahn WBC 8.8 103/ul Normal 4.0-11.0 [facility] Comment on above: Performed By: #### B MP, TSH #### [facility] [address] [place] [address] Dr. Daniel Hahn BASO # 0.1 103/ul Normal 0.0-0.1 [facility] Comment on above: Performed By: #### B MP, TSH #### [facility] [address] [place] [address] Dr. Daniel Hahn Basophils/100 WBC (Bld) 0.6 % Normal 0.2-2.0 [facility] Comment on above: Performed By: #### B MP, TSH #### [facility] [address] [place] [address] Dr. Daniel Hahn EO # 0.1 103/ul Normal 0.0-0.7 [facility] [facility] Comment on above: Performed By: #### B MP, TSH #### [facility] [address] [place] [address] Dr. Daniel Hahn Eosinophils/100 WBC (Bld) 0.6 % Critically low 0.9-7.0 [facility] Comment on above: Performed By: #### B MP, TSH #### [facility] [address] [place] [address] Dr. Daniel Hahn Erythrocyte distribution width (RBC) [Ratio] 13.3 % Normal 11.0-15.0 [facility] Comment on above: Performed By: #### B MP, TSH #### [facility] [address] [place] [address] Dr. Daniel Hahn Hematocrit (Bld) [Volume fraction] 46.4 % Normal 42.0-54.0 [facility] Comment on above: Performed By: #### B MP, TSH #### [facility] [address] [place] [address] Dr. Daniel Hahn Hemoglobin (Bld) [Mass/Vol] 15.0 g/dL Normal 14.0-18.0 [facility] Comment on above: Performed By: #### B MP, TSH #### [facility] [address] [place] [address] Dr. Daniel Hahn IG # 0.03 10e3/ul Normal 0.00-0.03 [facility] Comment on above: Performed By: #### B MP, TSH #### [facility] [address] [place] [address] Dr. Daniel Hahn IG % 0.4 % Normal 0.0-0.5 [facility] Comment on above: Performed By: #### B MP, TSH #### [facility] [address] [address] [address] Daniel Hahn LYMPH # 1.3 103/ul Normal 1.2-3.8 [facility] Comment on above: Performed By: #### B MP, TSH #### [facility] [address] [address] [address] Daniel Hahn Lymphocytes/100 WBC (Bld) 15.6 % Critically low 20.5-60.0 [facility] Comment on above: Performed By: #### B MP, TSH #### [facility] [address] [address] [address] Daniel Hahn MANUAL DIFF REQ NO Normal [facility] Comment on above: Performed By: #### B MP, TSH #### [facility] [address] [address] [address] Daniel Hahn MCH (RBC) [Entitic mass] 31.7 pg Normal 25.9-34.0 [facility] Comment on above: Performed By: #### B MP, TSH #### [facility] [address] [address] [address] Daniel Hahn MCHC (RBC) [Mass/Vol] 32.3 g/dL Normal 29.9-35.2 [facility] Comment on above: Performed By: #### B MP, TSH #### [facility] [address] [address] [address] Daniel Hahn MCV (RBC) [Entitic vol] 98.1 fL Critically high 80.0-94 .0 [facility] Comment on above: Performed By: #### B MP, TSH #### [facility] [address] [address] [address] Daniel Hahn MONO # 0.5 103/ul Normal 0.3-0.8 [facility] Comment on above: Performed By: #### B MP, TSH #### [facility] [address] [address] [address] Danile Hahn Monocytes/100 WBC (Bld) 6.1 % Normal 1.7-12.0 [facility] Comment on above: Performed By: #### B MP, TSH #### [facility] [address] [place] [address] Dr. Daniel Hahn NEUT # 6.4 103/ul Normal 1.4-6.5 [facility] Comment on above: Performed By: #### B MP, TSH #### [facility] [address] [place] [address] Dr. Daniel Hahn Neutrophils/100 WBC (Bld) 76.7 % Critically high 43.0-75.0 [facility] Comment on above: Performed By: #### B MP, TSH #### [facility] [address] [place] [address] Dr. Daniel Hahn Platelet mean volume (Bld) [Entitic vol] 9.9 fL Normal 9.5-13.5 [facility] Comment on above: Performed By: #### B MP, TSH #### [facility] [address] [place] [address] Dr. Daniel Hahn PLT 247 103/ul Normal 150-450 [facility] Comment on above: Performed By: #### B MP, TSH #### [facility] [address] [place] [address] Dr. Daniel Hahn RBC 4.73 106/ul Normal 4.70-6.10 [facility] Comment on above: Performed By: #### B MP, TSH #### [facility] [address] [place] [address] Dr. Daniel Hahn WBC 8.4 103/ul Normal 4.0-11.0 [facility] Comment on above: Performed By: #### B MP, TSH #### [facility] [address] [place] [address] Dr. Daniel Hahn CTA CHEST WO W [...] CARMEN MURDOCK Date: 2022-01-14 02:34 Normal [facility] Covid-19 PCR (CVDTBH)on 01-02 SARS-CoV-2 (COVID-19) RNA LEIGHTON+probe Ql (Unsp spec) Not detected Normal NOT DETECTED [facility] Comment on above: Result Comment: When diagnostic [...] for this test is supported by the [place] of Health and Human Service's declaration that [...] Performed By: #### B MP, TSH #### [facility] [address] [place] [address] Dr. Daniel Cormier 01-14-2022 D-DIMER 2.00 mg/L FEU Critically high <=0.59 [facility] [place] Comment on above: Performed By: #### B MP, TSH #### [facility] [address] [place], [place] [address] Dr. Daniel Hahn D-DIMER COMMENTS SEE BELOW Normal [facility] Comment on above: Result Comment: Incr [...] Performed By: #### B MP, TSH #### [facility] [address] [place], [place] [address] Dr. Daniel Hahn ECHO LIMITED STUDYon 022 ECHO LIMITED STUDY Patient: SEBASTIAN DIEGO Exam Date: 01/14/2022 : 1945 Gender:M Ordering : JULEE DUONG Admission #: [id number] Family : DR LEE PARSONS . Order #: [id number] CLICK HERE TO VIEW EXAM ECHOCARDIOGRAM REPORT [...] Nguyen M.D. on 01/14/2022 at 18:23 Normal [facility] ER URINE PROFILEon 2 Bilirubin Ql (U) Negative Normal NEGATIVE [facility] Comment on above: Performed By: #### E RUR #### [facility] [address] [place] [address] Dr. Daniel Hahn Clarity (U) CLEAR Normal CLEAR [facility] Comment on above: Performed By: #### E RUR #### [facility] [address] [place] [address] Dr. Daniel Hahn Color (U) YELLOW Normal YELLOW [facility] Comment on above: Performed By: #### E RUR #### [facility] [address] [place] [address] Dr. Daniel WADE A micrscopic examination will be performed if indicated. Normal [facility] Comment on above: Performed By: #### E RUR #### [facility] [address] [place] [address] Dr. Daniel Hahn Glucose Ql (U) Negative Normal NEGATIVE [facility] Comment on above: Performed By: #### E RUR #### [facility] [address] [place] [address] Dr. Daniel Hahn Hemoglobin Ql (U) Negative Normal NEGATIVE [facility] Comment on above: Performed By: #### E RUR #### [facility] [address] [place] [address] Dr. Daniel Hahn Ketones Ql (U) Negative Normal NEGATIVE [facility] Comment on above: Performed By: #### E RUR #### [facility] [address] [place] [address] Dr. Daniel Hahn LEUKOCYTES Negative Normal NEGATIVE [facility] Comment on above: Performed By: #### E RUR #### [facility] [address] [place] [address] Dr. Daniel Hahn Nitrite Ql (U) Negative Normal NEGATIVE [facility] Comment on above: Performed By: #### E RUR #### [facility] [address] [place] [address] Dr. Daniel Hahn pH (U) 5.5 [pH] Normal 5-9 [facility] Comment on above: Performed By: #### E RUR #### [facility] [address] [place] [address] Dr. Daniel Hahn SPEC GRAVITY 1.025 Normal 1.005-<=1.[address] [place] [address] Comment on above: Performed By: #### E RUR #### [facility] [address] [place] [address] Dr. Daniel Hahn UA PROTEIN TRACE Normal NEGATIVE/ TRACE [facility] Comment on above: Performed By: #### E RUR #### [facility] [address] [place] [address] Dr. Daniel Hahn UR MICRO IND NOT INDICATED Normal [facility] Comment on above: Performed By: #### E RUR #### [facility] [address] [place] [address] Dr. Daniel Hahn Urobilinogen Qn (U) 4 {Julien'U}/dL Abnormal 0.2 - 1.0 [facility] Comment on above: Performed By: #### E RUR #### [facility] [address] [place] [address] Dr. Daniel Hahn LACTATE/LACTIC ACIDon 2021 Lactate [Moles/Vol] 2.6 mmol/L Critically high 0.4-1.9 [facility] Comment on above: Performed By: #### B MP, LIVER #### [facility] [address] [address] [address] Daniel Hahn Lactate [Moles/Vol] 2.6 mmol/L Critically high 0.4-1.9 [facility] Comment on above: Performed By: #### B MP, TSH #### [facility] [address] [place] [address] Dr. Daniel Hahn Lactate [Moles/Vol] 3.7 mmol/L Critically high 0.4-1.9 [facility] Comment on above: Performed By: #### P SAFREE #### [facility] [address] [place] [address] Dr. Daniel Hahn LIVER PROFILEon 01-14-2022 Albumin [Mass/Vol] 3.4 g/dL Normal 3.4-5.0 [facility] Comment on above: Performed By: #### B IGNACIO, TSH #### [facility] [address] [place] [address] Dr. Daniel Hahn Albumin/Globulin [Mass ratio] 1.1 {ratio} Normal [facility] Comment on above: Performed By: #### B IGNACIO, TSH #### [facility] [address] [place] [address] Dr. Daniel Hahn ALP [Catalytic activity/Vol] 100 U/L Normal 46-116 [facility] Comment on above: Performed By: #### B IGNACIO, TSH #### [facility] [address] [place] [address] Dr. Daniel Hahn ALT [Catalytic activity/Vol] 21 U/L Normal 16-63 [facility] Comment on above: Performed By: #### B IGNACIO, TSH #### [facility] [address] [place] [address] Dr. Daniel Hahn AST [Catalytic activity/Vol] 25 U/L Normal 15-37 [facility] Comment on above: Performed By: #### B IGNACIO, TSH #### [facility] [address] [place] [address] Dr. Daniel Hahn BILI, CONJUGATED 0.0 mg/dL Normal 0.0-0.2 [facility] Comment on above: Performed By: #### B MP, TSH #### [facility] [address] [place] [address] Dr. Daniel Hahn Bilirubin [Mass/Vol] 0.7 mg/dL Normal 0.2-1.0 [facility] Comment on above: Performed By: #### B MP, TSH #### [facility] [address] [place] [address] Dr. Daniel Hahn Globulin (S) [Mass/Vol] 3.2 g/dL Normal T [facility] Comment on above: Performed By: #### B MP, TSH #### [facility] [address] [place] [address] Dr. Daniel Hahn Protein [Mass/Vol] 6.6 g/dL Normal 6.4-8.2 [facility] Comment on above: Performed By: #### B MP, TSH #### [facility] [address] [place] [address] Dr. Daniel Hahn PROF 14(COMP METB)on 022 Albumin [Mass/Vol] 3.1 g/dL Critically low 3.4-5.0 [facility] Comment on above: Performed By: #### C MP #### [facility] [address] [place] [address] Dr. Daniel Hahn Albumin/Globulin [Mass ratio] 1.1 {ratio} Normal [facility] Comment on above: Performed By: #### C MP #### [facility] [address] [place] [address] Dr. Daniel Hahn ALP [Catalytic activity/Vol] 91 U/L Normal 46-116 [facility] Comment on above: Performed By: #### C MP #### [facility] [address] [place] [address] Dr. Daniel Hahn ALT [Catalytic activity/Vol] 17 U/L Normal 16-63 [facility] Comment on above: Performed By: #### C MP #### [facility] [address] [place] [address] Dr. Daniel Hahn Anion gap [Moles/Vol] 13.4 mmol/L Normal [facility] Comment on above: Performed By: #### C MP #### [facility] [address] [place] [address] Dr. Daniel Hahn AST [Catalytic activity/Vol] 18 U/L Normal 15-37 [facility] Comment on above: Performed By: #### C MP #### [facility] [address] [address] [address] Daniel Hahn Bilirubin [Mass/Vol] 0.4 mg/dL Normal 0.2-1.0 [facility] Comment on above: Performed By: #### C MP #### [facility] [address] [place] [address] Dr. Daniel Hahn Calcium [Mass/Vol] 8.8 mg/dL Normal 8.5-10.1 [facility] Comment on above: Performed By: #### C MP #### [facility] [address] [place] [address] Dr. Daniel Hahn Chloride [Moles/Vol] 109 mmol/L Critically high 98-107 [facility] Comment on above: Performed By: #### C MP #### [facility] [address] [place] [address] Dr. Daniel Hahn CO2 [Moles/Vol] 24.2 mmol/L Normal 21.0-32.0 [facility] Comment on above: Performed By: #### C MP #### [facility] [address] [place] [address] Dr. Daniel Hahn Creatinine [Mass/Vol] 1.20 mg/dL Normal 0.70-1.30 [facility] Comment on above: Performed By: #### C MP #### [facility] [address] [address] [address] Daniel Hahn EGFR-AF BERMUDIAN >60 Normal >=60 [facility] Comment on above: Performed By: #### C MP #### [facility] [address] [place] [address] Dr. Daniel Hahn EGFR-NON AF BERMUDIAN 59 mL/min/1.73m2 Critically low >=60 [facility] Comment on above: Performed By: #### C MP #### [facility] [address] [address] [address] Daniel Hahn Globulin (S) [Mass/Vol] 2.9 g/dL Normal [facility] Comment on above: Performed By: #### C MP #### [facility] [address] [address] [address] Daniel Hahn Glucose [Mass/Vol] 151 mg/dL Critically high 74-106 [facility] Comment on above: Performed By: #### C MP #### [facility] [address] [address] [address] Daniel Hahn Potassium [Moles/Vol] 3.6 mmol/L Normal 3.5-5.1 [facility] Comment on above: Performed By: #### C MP #### [facility] [address] [address] [address] Daniel Hahn Protein [Mass/Vol] 6.0 g/dL Critically low 6.4-8.2 [facility] Comment on above: Performed By: #### C MP #### [facility] [address] [address] [address] Daniel Hahn Sodium [Moles/Vol] 143 mmol/L Normal 136-145 [facility] Comment on above: Performed By: #### C MP #### [facility] [address] [address] [address] Daniel Hahn Urea nitrogen [Mass/Vol] 9.0 mg/dL Normal 7.0-18.0 [facility] Comment on above: Performed By: #### C MP #### [facility] [address] [address] [address] Daniel Hahn Urea nitrogen/Creatinine [Mass ratio] 7.5 mg/mg Normal [facility] Comment on above: Performed By: #### C MP #### [facility] [address] [address] [address] Daniel Hahn PROF CHEM 8 (BAS METB)on Anion gap [Moles/Vol] 12.0 mmol/L Normal [facility] Comment on above: Performed By: #### B MP, TSH #### [facility] [address] [address] [address] Daniel Hahn Calcium [Mass/Vol] 8.9 mg/dL Normal 8.5-10.1 [facility] Comment on above: Performed By: #### B MP, TSH #### [facility] [address] [address] [address] Daniel Hahn Chloride [Moles/Vol] 106 mmol/L Normal 98-107 [facility] Comment on above: Performed By: #### B MP, TSH #### [facility] [address] [place] [address] Dr. Daniel Hahn CO2 [Moles/Vol] 25.3 mmol/L Normal 21.0-32.0 [facility] Comment on above: Performed By: #### B MP, TSH #### [facility] [address] [place] [address] Dr. Daniel Hahn Creatinine [Mass/Vol] 1.50 mg/dL Critically high 0.70-1.30 [facility] Comment on above: Performed By: #### B MP, TSH #### [facility] [address] [place] [address] Dr. Daniel Hahn EGFR-AF BERMUDIAN 55 mL/min/1.73m2 Critically low >=60 [facility] Comment on above: Performed By: #### B MP, TSH #### [facility] [address] [place] [address] Dr. Daniel Hahn EGFR-NON AF BERMUDIAN 46 mL/min/1.73m2 Critically low >=60 [facility] Comment on above: Performed By: #### B MP, TSH #### [facility] [address] [place] [address] Dr. Daniel Hahn Glucose [Mass/Vol] 213 mg/dL Critically high 74-106 [facility] Comment on above: Performed By: #### B MP, TSH #### [facility] [address] [place] [address] Dr. Daniel Hahn Potassium [Moles/Vol] 3.3 mmol/L Critically low 3.5-5.1 [facility] Comment on above: Performed By: #### B MP, TSH #### [facility] [address] [address] [address] Daniel Hahn Sodium [Moles/Vol] 140 mmol/L Normal 136-145 [facility] Comment on above: Performed By: #### B MP, TSH #### [facility] [address] [address] [address] Daniel Hahn Urea nitrogen [Mass/Vol] 11.0 mg/dL Normal 7.0-18.0 [facility] Comment on above: Performed By: #### B IGNACIO, TSH #### [facility] [address] [address] [address] Daniel Hahn Urea nitrogen/Creatinine [Mass ratio] 7.3 mg/mg Normal [facility] Comment on above: Performed By: #### B IGNACIO, TSH #### [facility] [address] [address] [address] Daniel Hahn TSHon 01-14-2022 TSH 0.213 uIU/mL Critically low 0.358-3.740 [facility] Comment on above: Performed By: #### B IGNACIO, TSH #### [facility] [address] [place] [address] Dr. Daniel Hahn XR CHEST 1 Von [...] by: ALKA MORENO Date: 2022-01-14 00:55 Normal [facility] PTH INTACTon 12-25-2021 PTH, Intact 26 pg/mL Normal 15-65 [facility] Comment on above: Performed By: #### B MP, TSH #### [facility] [address] [address] [address] Daniel Hahn VIT D 25-OH [facility]on 2021 Vitamin D, 25-Hydroxy 52.5 ng/mL Normal 30.0-100.0 [facility] Comment on above: Result Comment: Megan min D deficiency has been defined by the [place] of [employer] and an Endocrine Society practice guideline as a level of serum 25-OH vitamin D less than 20 ng/mL (1,2). The Endocrine Society went on to further define vitamin D insufficiency as a level between 21 and 29 ng/mL (2). 1. IOM ([place] of [employer]). 2010. Dietary reference intakes for calcium and D. [place]: The National [employer]Ado[employer] Press. 2. Jesica MF, Chely LUNA, Mandy HORNE, et al. Evaluation, treatment, and prevention of vitamin D deficiency: an Endocrine Society clinical practice guideline. JCEM. 2010; 96(7):1911-30. Performed By: #### B MP, TSH #### [facility] [address] [place] [address] Dr. Daniel Hahn FREE T3on 12-24-2021 FREE T3 2.03 pg/mlL Critically low 2.18-3.98 [facility] Comment on above: Performed By: #### B MP, TSH #### [facility] [address] [place] [address] Dr. Daniel Hahn FREE T4on 12-24-2021 Free T4 [Mass/Vol] 0.95 ng/dL Normal 0.76-1.46 [facility] Comment on above: Performed By: #### F T4 #### [facility] [address] [place] [address] Dr. Daniel Hahn GLYCOHEMOGLOBIN A1Con 2021 ADA RECOMMENDATION SEE BELOW Normal [facility] Comment on above: Result Comment: ADA RECOMMENDED LIMIT 4.0 - 6.0 ADA THERAPEUTIC TARGET < 7.0 ACTION SUGGESTED > 7.0 Performed By: #### B MP, LIVER #### [facility] [address] [place] [address] Dr. Daniel Hahn Glucose [Mass/Vol] 126 mg/dL Normal [facility] Comment on above: Performed By: #### B MP, LIVER #### [facility] [address] [address] [address] Daniel Hahn HbA1c (Bld) [Mass fraction] 6.0 % Normal 4.5-6.2 [facility] Comment on above: Performed By: #### B MP, LIVER #### [facility] [address] [place] [place] [address] Dr. Daniel Hahn PROF 14(COMP METB)on 022 Albumin [Mass/Vol] 3.3 g/dL Critically low 3.4-5.0 [facility] Comment on above: Performed By: #### B MP, TSH #### [facility] [address] [place] [address] Dr. Daniel Hahn Albumin/Globulin [Mass ratio] 1.0 {ratio} Normal [facility] Comment on above: Performed By: #### B MP, TSH #### [facility] [address] [place] [address] Dr. Daniel Hahn ALP [Catalytic activity/Vol] 96 U/L Normal 46-116 [facility] Comment on above: Performed By: #### B MP, TSH #### [facility] [address] [place] [address] Dr. Daniel Hahn ALT [Catalytic activity/Vol] 15 U/L Critically low 16-63 [facility] Comment on above: Performed By: #### B MP, TSH #### [facility] [address] [place] [address] Dr. Daniel Hahn Anion gap [Moles/Vol] 7.4 mmol/L Normal [facility] Comment on above: Performed By: #### B MP, TSH #### [facility] [address] [place] [address] Dr. Daniel Hahn AST [Catalytic activity/Vol] 16 U/L Normal 15-37 [facility] Comment on above: Performed By: #### B MP, TSH #### [facility] [address] [place] [address] Dr. Daniel Hahn Bilirubin [Mass/Vol] 0.6 mg/dL Normal 0.2-1.0 [facility] Comment on above: Performed By: #### B MP, TSH #### [facility] [address] [address] [address] Daniel Hahn Calcium [Mass/Vol] 9.0 mg/dL Normal 8.5-10.1 [facility] Comment on above: Performed By: #### B MP, TSH #### [facility] [address] [address] [address] Daniel Hahn Chloride [Moles/Vol] 107 mmol/L Normal 98-107 [facility] Comment on above: Performed By: #### B MP, TSH #### [facility] [address] [place] [address] Dr. Daniel Hahn CO2 [Moles/Vol] 32.8 mmol/L Critically high 21.0-32.0 [facility] Comment on above: Performed By: #### B MP, TSH #### [facility] [address] [place] [address] Dr. Daniel Hahn Creatinine [Mass/Vol] 1.06 mg/dL Normal 0.70-1.30 [facility] Comment on above: Performed By: #### B MP, TSH #### [facility] [address] [place] [address] Dr. Daniel Hahn EGFR-AF BERMUDIAN >60 Normal >=60 [facility] Comment on above: Performed By: #### B MP, TSH #### [facility] [address] [place] [address] Dr. Daniel Hahn EGFR-NON AF BERMUDIAN >60 Normal >=60 [facility] Comment on above: Performed By: #### B MP, TSH #### [facility] [address] [place] [address] Dr. Daniel Hahn Globulin (S) [Mass/Vol] 3.2 g/dL Normal [facility] Comment on above: Performed By: #### B MP, TSH #### [facility] [address] [place] [address] Dr. Daniel Hahn Glucose [Mass/Vol] 148 mg/dL Critically high 74-106 [facility] Comment on above: Performed By: #### B MP, TSH #### [facility] [address] [address] [address] Daniel Hahn Potassium [Moles/Vol] 4.2 mmol/L Normal 3.5-5.1 [facility] Comment on above: Performed By: #### B MP, TSH #### [facility] [address] [place] [address] Dr. Daniel Hahn Protein [Mass/Vol] 6.5 g/dL Normal 6.4-8.2 [facility] Comment on above: Performed By: #### B MP, TSH #### [facility] [address] [place] [address] Dr. Daniel Hahn Sodium [Moles/Vol] 143 mmol/L Normal 136-145 [facility] Comment on above: Performed By: #### B MP, TSH #### [facility] [address] [place] [address] Dr. Daniel Hahn Urea nitrogen [Mass/Vol] 15.0 mg/dL Normal 7.0-18.0 [facility] Comment on above: Performed By: #### B MP, TSH #### [facility] [address] [place] [address] Dr. Daniel Hahn Urea nitrogen/Creatinine [Mass ratio] 14.2 mg/mg Normal [facility] Comment on above: Performed By: #### B MP, TSH #### [facility] [address] [place] [address] Dr. Daniel Hahn TSHon 12-24-2021 TSH 0.409 uIU/mL Normal 0.358-3.740 [facility] Comment on above: Performed By: #### P SAFREE #### [facility] [address] [place] [address] Dr. Daniel Hahn XR KUB 1 VIEWon [...] by: CAROLINE BLOUNT Date: 2021-12-24 17:55 Normal [facility] XR TSPINE 3 VIEWSon 12-25-19 22 XR [...] CAROLINE BLOUNT Date: 2021-12-24 18:05 Normal [facility] XR KUB 1 VIEWon 10-23-2021 XR KUB [...] DEANDRE MIN Date: 2021-10-23 07:19 Normal [facility] UA RANDOM W/MICROSCOPICon BACTERIA TRACE Abnormal NONE SEEN [facility] Comment on above: Performed By: #### B MP, LIVER #### [facility] [address] [address] [address] Daniel Hahn Bilirubin Ql (U) Negative Normal NEGATIVE [facility] Comment on above: Performed By: #### B MP, LIVER #### [facility] [address] [address] [address] Daniel Hahn CAST NONE SEEN Normal NONE SEEN [facility] Comment on above: Performed By: #### B MP, LIVER #### [facility] [address] [place] [address] Dr. Daniel Hahn Clarity (U) CLEAR Normal CLEAR [facility] Comment on above: Performed By: #### B MP, LIVER #### [facility] [address] [place] [address] Dr. Daniel Hahn Color (U) YELLOW Normal YELLOW [facility] Comment on above: Performed By: #### B MP, LIVER #### [facility] [address] [place] [address] Dr. Daniel Hahn Crystals LM Nom (Urine sed) SEEN Abnormal NONE SEEN [facility] Comment on above: Performed By: #### B MP, LIVER #### [facility] [address] [place] [address] Dr. Daniel Hahn Epithelial cells LM Ql (Urine sed) RARE Normal NONE SEEN /RARE [facility] Comment on above: Performed By: #### B MP, LIVER #### [facility] [address] [place] [address] Dr. Daniel Hahn Glucose Ql (U) 100 mg/dl Abnormal NEGATIVE [facility] Comment on above: Performed By: #### B MP, LIVER #### [facility] [address] [place] [address] Dr. Daniel Hahn Hemoglobin Ql (U) Negative Normal NEGATIVE [facility] Comment on above: Performed By: #### B MP, LIVER #### [facility] [address] [place] [address] Dr. Daniel Hahn Ketones Ql (U) Negative Normal NEGATIVE [facility] Comment on above: Performed By: #### B MP, LIVER #### [facility] [address] [place] [address] Dr. Daniel Hahn LEUKOCYTES Negative Normal NEGATIVE [facility] Comment on above: Performed By: #### B MP, LIVER #### [facility] [address] [place] [address] Dr. Daniel Hahn MUCOUS MODERATE Abnormal NONE SEEN [facility] Comment on above: Performed By: #### B MP, LIVER #### [facility] [address] [place] [address] Dr. Daniel Hahn Nitrite Ql (U) Negative Normal NEGATIVE [facility] Comment on above: Performed By: #### B MP, LIVER #### [facility] [address] [place] [address] Dr. Daniel Hahn pH (U) 6.0 [pH] Normal 5-9 [facility] Comment on above: Performed By: #### B MP, LIVER #### [facility] [address] [place] [address] Dr. Daniel Hahn RBC 10-20 Abnormal 0-2 [facility] Comment on above: Performed By: #### B MP, LIVER #### [facility] [address] [place] [address] Dr. Daniel Hahn SPEC GRAVITY 1.020 Normal 1.005-<=1.02 5 [facility] Comment on above: Performed By: #### B MP, LIVER #### [facility] [address] [place] [address] Dr. Daniel Hahn UA PROTEIN Negative Normal NEGATIVE/ TRACE [facility] Comment on above: Performed By: #### B MP, LIVER #### [facility] [address] [place] [address] Dr. Daniel Hahn Urobilinogen Qn (U) 8 {Julien'U}/dL Abnormal 0.2 - 1.0 [facility] Comment on above: Performed By: #### B MP, LIVER #### [facility] [address] [place] [address] Dr. Daniel Hahn WBC NONE SEEN Normal NONE SEEN [facility] Comment on above: Performed By: #### B MP, LIVER #### [facility] [address] [place] [address] Dr. Daniel Hahn LIVER PROFILEon 09-26-2021 Albumin [Mass/Vol] 3.3 g/dL Critically low 3.4-5.0 [facility] Comment on above: Performed By: #### B MP, LIVER #### [facility] [address] [place], [place] [id number] Dr. Daniel Hahn Albumin/Globulin [Mass ratio] 1.0 {ratio} Normal [facility] Comment on above: Performed By: #### B MP, LIVER #### [facility] [address] [place] [address] Dr. Daniel Hahn ALP [Catalytic activity/Vol] 102 U/L Normal 46-116 [facility] Comment on above: Performed By: #### B MP, LIVER #### [facility] [address] [place] [address] Dr. Daniel Hahn ALT [Catalytic activity/Vol] 19 U/L Normal 16-63 [facility] Comment on above: Performed By: #### B MP, LIVER #### [facility] [address] [place] [address] Dr. Daniel Hahn AST [Catalytic activity/Vol] 15 U/L Normal 15-37 [facility] Comment on above: Performed By: #### B MP, LIVER #### [facility] [address] [place] [address] Dr. Daniel Hahn BILI, CONJUGATED 0.3 mg/dL Critically high 0.0-0.2 [facility] Comment on above: Performed By: #### B MP, LIVER #### [facility] [address] [place] [address] Dr. Daniel Hahn Bilirubin [Mass/Vol] 0.9 mg/dL Normal 0.2-1.0 [facility] Comment on above: Performed By: #### B MP, LIVER #### [facility] [address] [place] [address] Dr. Daniel Hahn Globulin (S) [Mass/Vol] 3.2 g/dL Normal [facility] Comment on above: Performed By: #### B MP, LIVER #### [facility] [address] [place] [address] Dr. Daniel Hahn Protein [Mass/Vol] 6.5 g/dL Normal 6.4-8.2 [facility] Comment on above: Performed By: #### B MP, LIVER #### [facility] [address] [place] [address] Dr. Daniel Hahn PROF CHEM 8 (BAS METB)on Anion gap [Moles/Vol] 10.2 mmol/L Normal [facility] Comment on above: Performed By: #### B MP, LIVER #### [facility] [address] [address] [address] Daniel Hahn Calcium [Mass/Vol] 9.0 mg/dL Normal 8.5-10.1 [facility] Comment on above: Performed By: #### B MP, LIVER #### [facility] [address] [place] [address] Dr. Daniel Hahn Chloride [Moles/Vol] 104 mmol/L Normal 98-107 [facility] Comment on above: Performed By: #### B MP, LIVER #### [facility] [address] [place] [address] Dr. Daniel Hahn CO2 [Moles/Vol] 28.8 mmol/L Normal 21.0-32.0 [facility] Comment on above: Performed By: #### B MP, LIVER #### [facility] [address] [place] [address] Dr. Daniel Hahn Creatinine [Mass/Vol] 1.11 mg/dL Normal 0.70-1.30 [facility] Comment on above: Performed By: #### B MP, LIVER #### [facility] [address] [place] [address] Dr. Daniel Hahn EGFR-AF BERMUDIAN >60 Normal >=60 [facility] Comment on above: Performed By: #### B MP, LIVER #### [facility] [address] [place] [address] Dr. Daniel Hahn EGFR-NON AF BERMUDIAN >60 Normal >=60 [facility] Comment on above: Performed By: #### B MP, LIVER #### [facility] [address] [place] [address] Dr. Daniel Hahn Glucose [Mass/Vol] 179 mg/dL Critically high 74-106 [facility] Comment on above: Performed By: #### B MP, LIVER #### [facility] [address] [place] [address] Dr. Daniel Hahn Potassium [Moles/Vol] 4.0 mmol/L Normal 3.5-5.1 [facility] Comment on above: Performed By: #### B MP, LIVER #### [facility] [address] [place] [address] Dr. Daniel Hahn Sodium [Moles/Vol] 139 mmol/L Normal 136-145 [facility] Comment on above: Performed By: #### B MP, LIVER #### [facility] [address] [place] [address] Dr. Daniel Hahn Urea nitrogen [Mass/Vol] 15.0 mg/dL Normal 7.0-18.0 [facility] Comment on above: Performed By: #### B MP, LIVER #### [facility] [address] [place] [address] Dr. Daniel Hahn Urea nitrogen/Creatinine [Mass ratio] 13.5 mg/mg Normal [facility] Comment on above: Performed By: #### B MP, LIVER #### [facility] [address] [place] [address] Dr. Daniel Hahn CBC AUTO DIFFon 09-10-2021 BASO # 0.1 103/ul Normal 0.0-0.1 [facility] Comment on above: Performed By: #### P SAFREE #### [facility] [address] [place] [address] Dr. Daniel Hahn Basophils/100 WBC (Bld) 1.1 % Normal 0.2-2.0 [facility] Comment on above: Performed By: #### P SAFREE #### [facility] [address] [place] [address] Dr. Daniel Hahn EO # 0.3 103/ul Normal 0.0-0.7 [facility] Comment on above: Performed By: #### P SAFREE #### [facility] [address] [place] [address] Dr. Daniel Hahn Eosinophils/100 WBC (Bld) 4.1 % Normal 0.9-7.0 [facility] Comment on above: Performed By: #### P SAFREE #### [facility] [address] [place] [address] Dr. Daniel Hhan Erythrocyte distribution width (RBC) [Ratio] 13.6 % Normal 11.0-15.0 [facility] Comment on above: Performed By: #### P SAFREE #### [facility] [address] [place] [address] Dr. Daniel Hahn Hematocrit (Bld) [Volume fraction] 49.2 % Normal 42.0-54.0 [facility] Comment on above: Performed By: #### P SAFREE #### [facility] [address] [place] [address] Dr. Daniel Hahn Hemoglobin (Bld) [Mass/Vol] 16.1 g/dL Normal 14.0-18.0 [facility] Comment on above: Performed By: #### P SAFREE #### [facility] [address] [place] [address] Dr. Daniel Hahn IG # 0.02 10e3/ul Normal 0.00-0.03 [facility] Comment on above: Performed By: #### P SAFREE #### [facility] [address] [place] [address] Dr. Daniel Hahn IG % 0.2 % Normal 0.0-0.5 [facility] Comment on above: Performed By: #### P SAFREE #### [facility] [address] [place] [address] Dr. Daniel Hahn LYMPH # 2.3 103/ul Normal 1.2-3.8 [facility] Comment on above: Performed By: #### P SAFREE #### [facility] [address] [place] [address] Dr. Dainel Hahn Lymphocytes/100 WBC (Bld) 27.6 % Normal 20.5-60.0 [facility] Comment on above: Performed By: #### P SAFREE #### [facility] [address] [place] [address] Dr. Daniel Hahn MANUAL DIFF REQ NO Normal [facility] Comment on above: Performed By: #### P SAFREE #### [facility] [address] [address] [address] Daniel Hahn MCH (RBC) [Entitic mass] 31.4 pg Normal 25.9-34.0 [facility] Comment on above: Performed By: #### P SAFREE #### [facility] [address] [place] [address] Dr. Daniel Hahn MCHC (RBC) [Mass/Vol] 32.7 g/dL Normal 29.9-35.2 [facility] Comment on above: Performed By: #### P SAFREE #### [facility] [address] [place] [address] Dr. Daniel Hahn MCV (RBC) [Entitic vol] 96.1 fL Critically high 80.0-94 .0 [facility] Comment on above: Performed By: #### P SAFREE #### [facility] [address] [place] [address] Dr. Daniel Hahn MONO # 0.6 103/ul Normal 0.3-0.8 [facility] Comment on above: Performed By: #### P SAFREE #### [facility] [address] [place] [address] Dr. Daniel Hahn Monocytes/100 WBC (Bld) 7.8 % Normal 1.7-12.0 [facility] Comment on above: Performed By: #### P SAFREE #### [facility] [address] [place] [address] Dr. Daniel Hahn NEUT # 4.9 103/ul Normal 1.4-6.5 [facility] Comment on above: Performed By: #### P SAFREE #### [facility] [address] [place] [address] Dr. Daniel Hahn Neutrophils/100 WBC (Bld) 59.2 % Normal 43.0-75.0 [facility] Comment on above: Performed By: #### P SAFREE #### [facility] [address] [place] [address] Dr. Daniel Hahn Platelet mean volume (Bld) [Entitic vol] 10.4 fL Normal 9.5-13.5 [facility] Comment on above: Performed By: #### P SAFREE #### [facility] [address] [place] [address] Dr. Daniel Hahn PLT 284 103/ul Normal 150-450 [facility] Comment on above: Performed By: #### P SAFREE #### [facility] [address] [place] [address] Dr. Daniel Hahn RBC 5.12 106/ul Normal 4.70-6.10 [facility] Comment on above: Performed By: #### P SAFREE #### [facility] [address] [place] [address] Dr. Daniel Hahn WBC 8.2 103/ul Normal 4.0-11.0 [facility] Comment on above: Performed By: #### P SAFREE #### [facility] [address] [place] [address] Dr. Daniel Hahn FREE T4on 09-10-2021 Free T4 [Mass/Vol] 1.28 ng/dL Normal 0.76-1.46 [facility] Comment on above: Performed By: #### B MP, LIVER #### [facility] [address] [place] [address] Dr. Daniel Hahn LIVER PROFILEon 09-10-2021 Albumin [Mass/Vol] 3.7 g/dL Normal 3.4-5.0 [facility] Comment on above: Performed By: #### P SAFREE #### [facility] [address] [place] [address] Dr. Daniel Hahn Albumin/Globulin [Mass ratio] 1.1 {ratio} Normal [facility] Comment on above: Performed By: #### P SAFREE #### [facility] [address] [place] [address] Dr. Daniel Hahn ALP [Catalytic activity/Vol] 120 U/L Critically high 46-116 [facility] Comment on above: Performed By: #### P SAFREE #### [facility] [address] [place] [address] Dr. Daniel Hahn ALT [Catalytic activity/Vol] 18 U/L Normal 16-63 [facility] Comment on above: Performed By: #### P SAFREE #### [facility] [address] [address] [address] Daniel Hahn AST [Catalytic activity/Vol] 19 U/L Normal 15-37 [facility] Comment on above: Performed By: #### P SAFREE #### [facility] [address] [address] [address] Daniel Hahn BILI, CONJUGATED 0.3 mg/dL Critically high 0.0-0.2 [facility] Comment on above: Performed By: #### P SAFREE #### [facility] [address] [address] [address] Daniel Hahn Bilirubin [Mass/Vol] 1.0 mg/dL Normal 0.2-1.0 [facility] Comment on above: Performed By: #### P SAFREE #### [facility] [address] [place] [address] Dr. Daniel Hahn Globulin (S) [Mass/Vol] 3.4 g/dL Normal T [facility] Comment on above: Performed By: #### P SAFREE #### [facility] [address] [address] [address] Daniel Hahn Protein [Mass/Vol] 7.1 g/dL Normal 6.4-8.2 [facility] Comment on above: Performed By: #### P SAFREE #### [facility] [address] [place] [address] Dr. Daniel Hahn PROF CHEM 8 (BAS METB)on Anion gap [Moles/Vol] 12.4 mmol/L Normal Th [facility] Comment on above: Performed By: #### B MP, TSH #### [facility] [address] [address] [address] Daniel Hahn Calcium [Mass/Vol] 9.2 mg/dL Normal 8.5-10.1 [facility] Comment on above: Performed By: #### B MP, TSH #### [facility] [address] [address] [address] Daniel Hahn Chloride [Moles/Vol] 103 mmol/L Normal 98-107 [facility] Comment on above: Performed By: #### B MP, TSH #### [facility] [address] [address] [address] Daniel Hahn CO2 [Moles/Vol] 28.9 mmol/L Normal 21.0-32.[address] [facility] Comment on above: Performed By: #### B MP, TSH #### [facility] [address] [address] [address] Daniel Hahn Creatinine [Mass/Vol] 1.04 mg/dL Normal 0.70-1.30 [facility] Comment on above: Performed By: #### B MP, TSH #### [facility] [address] [address] [address] Daniel Hahn EGFR-AF BERMUDIAN >60 Normal >=60 [facility] Comment on above: Performed By: #### B MP, TSH #### [facility] [address] [address] [address] Daniel Hahn EGFR-NON AF BERMUDIAN >60 Normal >=60 [facility] Comment on above: Performed By: #### B MP, TSH #### [facility] [address] [address] [address] Daniel Hahn Glucose [Mass/Vol] 92 mg/dL Normal 74-106 [facility] Comment on above: Performed By: #### B MP, TSH #### [facility] [address] [address] [address] Daniel Hahn Potassium [Moles/Vol] 3.3 mmol/L Critically low 3.5-5.1 [facility] Comment on above: Performed By: #### B MP, TSH #### [facility] [address] [address] [address] Daniel Hahn Sodium [Moles/Vol] 141 mmol/L Normal 136-145 [facility] Comment on above: Performed By: #### B MP, TSH #### [facility] [address] [address] [address] Daniel Hahn Urea nitrogen [Mass/Vol] 12.0 mg/dL Normal 7.0-18.0 [facility] Comment on above: Performed By: #### B MP, TSH #### [facility] [address] [place] [address] Dr. Daniel Hahn Urea nitrogen/Creatinine [Mass ratio] 11.5 mg/mg Normal [facility] Comment on above: Performed By: #### B MP, TSH #### [facility] [address] [place] [address] Dr. Daniel Hahn TSHon 09-10-2021 TSH 0.148 uIU/mL Critically low 0.358-3.[address] [facility] Comment on above: Performed By: #### B MP, TSH #### [facility] [address] [place] [address] Dr. Daniel Hahn TSH RANGE SEE BELOW Normal [facility] Comment on above: Result Comment: <0.3 4 UIU/ml HYPERTHYROID 0.34-5.60 UIU/ml EUTHYROID >5.60 UIU/ml HYPOTHYROID Performed By: #### B MP, TSH #### [facility] [address] [place] [address] Dr. Daniel Hahn UA (CLEAN/CATCH) COLLEGE OR UNIVERSITY REGISTRAR/MICRO I F IND.on 09-10-2021 Bilirubin Ql (U) SMALL Abnormal NEGATIVE [facility] Comment on above: Performed By: #### B MP, TSH #### [facility] [address] [place] [address] Dr. Daniel Hahn Clarity (U) CLEAR Normal CLEAR [facility] Comment on above: Performed By: #### B MP, TSH #### [facility] [address] [place] [address] Dr. Daniel Hahn Color (U) DK. YELLOW Normal YELLOW [facility] Comment on above: Performed By: #### B MP, TSH #### [facility] [address] [place] [address] Dr. Daniel Hahn Glucose Ql (U) Negative Normal NEGATIVE The [facility] Comment on above: Performed By: #### B MP, TSH #### [facility] [address] [place] [address] Dr. Daniel Hahn Hemoglobin Ql (U) Negative Normal NEGATIVE [facility] Comment on above: Performed By: #### B MP, TSH #### [facility] [address] [address] [address] Daniel Hahn Ketones Ql (U) Negative Normal NEGATIVE [facility] Comment on above: Performed By: #### B MP, TSH #### [facility] [address] [place] [address] Dr. Daniel Hahn LEUKOCYTES Negative Normal NEGATIVE The [facility] Comment on above: Performed By: #### B MP, TSH #### [facility] [address] [address] [address] Daniel Hahn Nitrite Ql (U) Negative Normal NEGATIVE [facility] Comment on above: Performed By: #### B MP, TSH #### [facility] [address] [place] [address] Dr. Daniel Hahn pH (U) 6.0 [pH] Normal 5-9 [facility] Comment on above: Performed By: #### B MP, TSH #### [facility] [address] [place] [address] Dr. Daniel Hahn SPEC GRAVITY 1.025 Normal 1.005-<=1.02 5 [facility] Comment on above: Performed By: #### B MP, TSH #### [facility] [address] [place] [address] Dr. Daniel Hahn UA PROTEIN TRACE Normal NEGATIVE/ TRACE The [facility] Comment on above: Performed By: #### B MP, TSH #### [facility] [address] [place] [address] Dr. Daniel Hahn UR MICRO IND NOT INDICATED Normal The [facility] Comment on above: Performed By: #### B MP, TSH #### [facility] [address] [place] [address] Dr. Daniel Hahn Urobilinogen Qn (U) 2.0 {Julien'U}/dL Abnormal 0.2 - 1. 0 [facility] Comment on above: Performed By: #### B MP, TSH #### [facility] [address] [place] [address] Dr. Daniel Hahn Vital Signs Date Time Vital Sign Value Performing Clinician Facility 06-11-2023 10:00-0500 Body temperature 97.8 [degF] Addie Salmonzheng Other [facility] Other 06-11-2023 10:00-0500 Body weight 63.96 kg Addie Salmonurszulao Other [facility] Other 06-11-2023 10:00-0500 Diastolic blood pressure 60 mm[Hg] Addie Salmonurszulao Other [facility] Other 06-11-2023 10:00-0500 SaO2% (BldA) [Mass fraction] 97 % Addie Salmonurszulao Other [facility] Other 06-11-2023 10:00-0500 Systolic blood pressure 100 mm[Hg] Addie Marilee Other [facility] Other 05-19-2023 12:15-0500 Body temperature 96 [degF] Addie Salmontino Other [facility] Other 05-19-2023 12:15-0500 Body weight 63.96 kg Addie Salmonurszulao Other [facility] Other 05-19-2023 12:15-0500 Diastolic blood pressure 56 mm[Hg] Addie Salmontino Other [facility] Other 05-19-2023 12:15-0500 Systolic blood pressure 90 mm[Hg] Addie Ruttino Other [facility] Other 05-14-2023 11:15-0500 Body temperature 97.8 [degF] Addie Merono Other [facility] Other 05-14-2023 11:15-0500 Body weight 72.58 kg Addie Hunt Other [facility] Other 05-14-2023 11:15-0500 Diastolic blood pressure 82 mm[Hg] Addie Hunt Other [facility] Other 05-14-2023 11:15-0500 SaO2% (BldA) [Mass fraction] 98 % Addie Hunt Other [facility] Other 05-14-2023 11:15-0500 Systolic blood pressure 156 mm[Hg] Addie Hunt Other [facility] Other 04-24-2023 11:17-0500 Body temperature 98.7 [degF] Carmelita Aichholz Work Phone: [facility] 04-24-2023 11:17-0500 Diastolic blood pressure 73 mm[Hg] Carmelita Aichholz Work Phone: [facility] 04-24-2023 11:17-0500 Heart rate 77 /min Carmelita Aichholz Work Phone: [facility] 04-24-2023 11:17-0500 Respiratory rate 20 /min Carmelita Aichholz Work Phone: [facility] 04-24-2023 11:17-0500 SaO2% (BldA) [Mass fraction] 91 % Carmelita Aichholz Work Phone: [facility] 04-24-2023 11:17-0500 Systolic blood pressure 145 mm[Hg] Carmelita Aichholz Work Phone: [facility] 04-23-2023 06:26-0500 Body weight 74.3 kg Carmelita Aichholz Work Phone: [facility] 04-23-2023 03:28-0500 Inhaled oxygen flow rate 2 L/min Carmelita Aichholz Work Phone: [facility] 04-20-2023 09:46-0500 Body height 162.56 cm Carmelita Aichholz Work Phone: [facility] 04-20-2023 09:46-0500 Body mass index (BMI) [Ratio] 27.6 kg/m2 Carmelita Aichholz Work Phone: [facility] 04-17-2023 16:49-0500 Body temperature 99.5 [degF] Carmelita Aichholz Work Phone: [facility] 04-17-2023 16:49-0500 Diastolic blood pressure 79 mm[Hg] Carmelita Aichholz Work Phone: [facility] 04-17-2023 16:49-0500 Heart rate 86 /min Carmelita Aichholz Work Phone: [facility] 04-17-2023 16:49-0500 Respiratory rate 20 /min Carmelita Aichholz Work Phone: [facility] 04-17-2023 16:49-0500 SaO2% (BldA) [Mass fraction] 93 % Carmelita Aichholz Work Phone: [facility] 04-17-2023 16:49-0500 Systolic blood pressure 120 mm[Hg] Carmelita Aichholz Work Phone: [facility] 04-17-2023 16:48-0500 Body height 162.56 cm Carmelita Aichholz Work Phone: [facility] 04-17-2023 16:48-0500 Body weight 73.93 kg Carmelita Aichholz Work Phone: [facility] 03-24-2023 11:45-0500 Diastolic blood pressure 100 mm[Hg] Carmelita Aichholz Work Phone: [facility] 03-24-2023 11:45-0500 Heart rate 68 /min Carmelita Aichholz Work Phone: [facility] 03-24-2023 11:45-0500 Systolic blood pressure 162 mm[Hg] Carmelita Aichholz Work Phone: [facility] 03-24-2023 11:05-0500 Body height 180.34 cm Carmelita Aichholz Work Phone: [facility] 03-24-2023 11:05-0500 Body weight 70.3 kg Carmelita Aichholz Work Phone: [facility] 03-16-2023 14:00-0500 Diastolic blood pressure 88 mm[Hg] Glo Mani Other [facility] Other 03-16-2023 14:00-0500 Respiratory rate 18 /min Glo Mani Other [facility] Other 03-16-2023 14:00-0500 SaO2% (BldA) [Mass fraction] 98 % Glo Mani Other [facility] Other 03-16-2023 14:00-0500 Systolic blood pressure 172 mm[Hg] Glo Mani Other [facility] Other 03-11-2023 10:00-0500 Body temperature 97.8 [degF] Linda Rodriguez Other [facility] Other 03-11-2023 10:00-0500 Body weight 69.85 kg Linda Rodriguez Other [facility] Other 03-11-2023 10:00-0500 Diastolic blood pressure 64 mm[Hg] Linda Rodriguez Other [facility] Other 03-11-2023 10:00-0500 SaO2% (BldA) [Mass fraction] 98 % Linda Rodriguez Other [facility] Other 03-11-2023 10:00-0500 Systolic blood pressure 114 mm[Hg] Linda Rodriguez Other [facility] Other 02-26-2023 10:19-0400 Diastolic blood pressure 104 mm[Hg] Carmelita Aichholz Work Phone: [facility] 02-26-2023 10:19-0400 Heart rate 54 /min Carmelita Aichholz Work Phone: [facility] 02-26-2023 10:19-0400 Respiratory rate 16 /min Carmelita Aichholz Work Phone: [facility] 02-26-2023 10:19-0400 SaO2% (BldA) [Mass fraction] 98 % Carmelita Aichholz Work Phone: [facility] 02-26-2023 10:19-0400 Systolic blood pressure 168 mm[Hg] Carmelita Aichholz Work Phone: [facility] 02-18-2023 09:45-0400 Body temperature 97.2 [degF] Linda Rodriguez Other [facility] Other 02-18-2023 09:45-0400 Diastolic blood pressure 92 mm[Hg] Linda Rodriguez Other [facility] Other 02-18-2023 09:45-0400 SaO2% (BldA) [Mass fraction] 97 % Linda Rodriguez Other [facility] Other 02-18-2023 09:45-0400 Systolic blood pressure 164 mm[Hg] Linda Rodriguez Other [facility] Other 02-10-2023 15:02-0400 Body height 4419.6 cm Carmelita Zavala Work Phone: [facility] 02-10-2023 15:02-0400 Body weight 63.87 kg Carmelita Zavala Work Phone: [facility] Encounters Encounter Date Encounter Type Care Provider Facility Start: 06-19-2023 ambulatory Sancho Preciado ty:KATE Pelaez Start: 06-12-2023 Clinisync Result Encounter Madhav Tolliver MD Work Phone: [facility] Unsolicited Start: 06-12-2023 Clinisync Result Encounter Madhav Tolliver MD Work Phone: [facility] External [facility] Unsolicited Start: 06-11-2023 End: 06-11-2023 ambulatory Addie Hunt Other [facility] Other Start: 06-11-2023 Patient encounter procedure Addie Hunt [facility] V[facility] Surgery Start: 06-09-2023 ambulatory Sancho Tenai ty:[id number] Start: 05-26-2023 End: 05-27-2023 ambulatory Sancho LEE Facility:[facility] Start: 05-26-2023 End: 05-26-2023 Patient encounter procedure Sancho LEE [facility] Start: 05-21-2023 End: 05-21-2023 ambulatory Addie Hunt Other [facility] Other Start: 05-21-2023 Telephone encounter Addie Hunt [facility] Start: 05-19-2023 End: 05-19-2023 ambulatory Addie Hunt Other [facility] Other Start: 05-19-2023 Patient encounter procedure Addie Hunt [facility] V[facility] Surgery Start: 05-14-2023 End: 05-14-2023 ambulatory Addie Hunt Other [facility] Other Start: 05-14-2023 FQHC visit, estab pt Addie Hunt [facility] Vascular Surgery Start: 04-21-2023 End: 04-21-2023 ambulatory Linda Rodriguez Other [facility] Other Start: 04-21-2023 Telephone encounter Linda Zhu [facility] Surgery Start: 04-20-2023 End: 04-24-2023 Evaluation and management of inpatient Linda Rordiguez Facility:[facility] Start: 04-20-2023 End: 04-24-2023 Evaluation and management of inpatient Carmelita Zavala Work Phone: [facility]-[address] [place] [address] Surgical Work Phone: Start: 04-17-2023 End: 04-17-2023 Emergency department patient visit Mary Carey Facility:[facility] Start: 04-17-2023 End: 04-17-2023 Emergency department patient visit Carmelita Zavala Work Phone: [facility]-Emergency Room Work Phone: Start: 04-17-2023 End: 04-18-2023 ambulatory Sancho LEE Facility:[facility] Start: 04-13-2023 End: 04-13-2023 ambulatory Linda Rodriguez Facility:[facility] Start: 04-13-2023 End: 04-13-2023 Patient encounter procedure Carmelita Lucas Work Phone: [facility]-Pre-Surgical Testing Work Phone: Start: 03-25-2023 End: 03-25-2023 ambulatory Glo Mani Other [facility] Other Start: 03-25-2023 Telephone encounter Glo Mani [facility] Start: 03-24-2023 Encounter by compute r link Glo Mani [facility] Start: 03-24-2023 End: 03-24-2023 ambulatory Carmelita Zavala Work Phone: [facility] Work Phone: Start: 03-24-2023 End: 03-24-2023 Patient encounter procedure Carmelita Zavala Work Phone: [facility]-Nuc Med [facility] [place] Work Phone: Start: 03-18-2023 End: 03-19-2023 ambulatory Sancho LEE Facility:[facility] Start: 03-18-2023 End: 03-18-2023 Patient encounter procedure Sancho LEE [facility] Start: 03-16-2023 End: 03-16-2023 ambulatory Glo Mani Other [facility] Other Start: 03-16-2023 Encounter for other preprocedural examination Glo Mani [facility] Start: 03-16-2023 Office outpatient ne w 45 minutes Glo Mani [facility] Start: 03-16-2023 Preprocedural examination done Glo Mani Other [facility] Other Start: 03-11-2023 Office outpatient vi sit 40 minutes Linda Rodriguez [facility] Start: 03-11-2023 End: 03-11-2023 ambulatory Carmelita Zavala Work Phone: [facility] Other Start: 03-11-2023 End: 03-11-2023 Patient encounter procedure Carmelita Grahamholz Work Phone: [facility]-Ultrasound [place] [facility] Start: 02-26-2023 End: 02-26-2023 ambulatory Linda Rodriguez Facility:[facility] Start: 02-26-2023 End: 02-26-2023 ambulatory Carmelita J Joseayoholz Work Phone: [facility] Work Phone: Start: 02-26-2023 End: 02-26-2023 Patient encounter procedure Carmelita Grahamholz Work Phone: [facility]-CT Scan [facility] [place] Work Phone: Start: 02-18-2023 End: 02-18-2023 ambulatory Linda Rodriguez Other [facility] [employer] Other Start: 02-18-2023 Office outpatient ne w 60 minutes Linda Rodriguez [facility] Vascular Surgery Start: 02-10-2023 End: 02-10-2023 ambulatory Sancho Lee Facility:[facility] Start: 02-10-2023 End: 02-10-2023 Patient encounter procedure Carmelita Joseayoholz Work Phone: [facility]-MRI [facility] [place] Work Phone: Start: 12-29-2022 End: 12-29-2022 ambulatory Carmelita J Josehholz Work Phone: [facility] Work Phone: Start: 12-29-2022 End: 12-29-2022 Patient encounter procedure Carmelita Aicayoholz Work Phone: [facility] [place] Work Phone: Start: 11-21-2022 End: 11-22-2022 ambulatory Sancho LEE Facility: [facility] Start: 09-22-2022 End: 09-23-2022 ambulatory Sanchoeverardo LEE Facility:[facility] Start: 09-22-2022 End: 09-23-2022 ambulatory Sancho LEE Facility:[facility] Start: 08-25-2022 End: 08-26-2022 ambulatory TATYANA ZAVALA Facility: Start: 07-21-2022 ambulatory LNIDA WORKMAN [facility] Start: 01-14-2022 End: 01-14-2022 ambulatory TRANSITIONS RN CARE COORDINATOR CARMELITA LUCAS Facility:[facility] Start: 12-24-2021 End: 12-25-2021 ambulatory TRANSITIONS RN CARE COORDINATOR CARMELITA ZAVALA Facility:[facility] Start: 10-29-2021 End: 10-29-2021 Patient encounter procedure Mady Kramer Jr. [facility] Start: 10-22-2021 End: 10-23-[address] MADY Arboleda Facility:[facility] Start: 10-07-2021 End: 10-07-2021 ambulatory TRANSITIONS RN CARE COORDINATOR CARMELITA ZAVALA Facility:[facility] Start: 09-26-2021 End: 09-27-2021 ambulatory TRANSITIONS RN CARE COORDINATOR CARMELITA LUCAS Facility:[facility] Start: 09-10-2021 End: 09-11-2021 ambulatory TRANSITIONS RN CARE COORDINATOR CARMELITA GRAHAMHOLEmily Facility:[facility] Procedures Date Procedure Procedure Detail Performing Clinician Start: 06-12-2023 ALL BASIC METABOLIC PANEL Madhav Tolliver MD Work Phone: Start: 04-20-2023 Antibody screen Linda Rodriguez Comment on above: Order Comment: Trans fuse now? N Result Comment: PERF ORMED BY: [facility] [address] [place] [address] PATHOLOGIST [employer] PRESS OPERATOR NOAH PINEDA M.D. Start: 04-20-2023 Femoral endarterectomy Carmelita Zavala Work Phone: Start: 04-17-2023 Plain X-ray of right wrist Carmelita Grahamneli Work Phone: Start: 04-13-2023 Urine culture Carmelita gustafsonz Work Phone: Start: 03-24-2023 Radionuclide myocard ial perfusion stress study Carmelita Zavala Work Phone: Start: 03-11-2023 Duplex scan of lower limb arteries Carmelita Zavala Work Phone: Start: 02-26-2023 Computed tomography angiography of abdominal and/or pelvic blood vessel Carmelita Zavala Work Phone: Start: 02-10-2023 MR prostate wo/w con Li sa Lucas Work Phone: Start: 08-25-2022 PSA screening TRANSITIONS RN CARE COORDINATOR CARMELITA ZAVALA Comment on above: Performed By: #### P SAFREE #### [facility] [address] [place] [address] Dr. Daniel Hahn Start: 04-18-2021 Cystoscopy and retro grade pyelography Mady Kramer Jr. Comment on above: laser lithotripsy , ureteroscopy stone extraction .left stent placement Start: 01-11-2019 Cystoscopy Mady yost Jr. Start: 05-04-2009 Repair of aneurysm Ayaka Kramer Jr. Comment on above: Behind both of my steve nekathryn. Start: 05-04-1967 Arthroscopy of knee Forest Kramer Jr. Comment on above: Right knee Amputation of lower limb Forest Kramer Jr. Comment on above: B/L, above the knee Colonoscopy Mady Arboleda Comment on above: over 10 years ago Extraction of cataract Vahid Kramer Jr. Comment on above: B/L Tonsillectomy Mady arizmendi Plan of Treatment Date Care Activity Detail Author Start: 07-20-2023 End: 07-20-2023 Patient encounter procedure 07/20/2023 6:00 PM EDT Office Visit [facility] [address] [place] [address] Carmelita Zavala, RESIDENTIAL THERAPIST [address] [place] [id number] [facility] Start: 04-23-2023 [facility] Start: 04-21-2023 Referral to Bus Analyst [facility] Start: 04-20-2023 Hospital admission [facility] Start: 01-02-2023 Influenza vaccination Influenza Vacc ine (#1) [facility] Healthcare Start: 1945 Medicare Annual Well ness (AWV) Medicare Annual Wellness (AWV) [facility] Healthcare Patient Education [facility] Work Phone: Patient referral [facility] Work Phone: [facility] Immunizations Immunization Date Immunization Notes Care Provider Fa cili 04-22-2022 SARS-CoV-2 (COVID-19 ) [id number] Sancho LEE [facility] 02-19-2021 SARS-CoV-2 (COVID-19 ) mRNA BNT-162b2 vax Sancho LEE [facility] 01-28-2021 SARS-CoV-2 (COVID-19 ) mRNA BNT-162b2 vax Sancho LEE [facility] 03-04-2020 influenza virus vacc ine, unspecified formulation Madhav Tolliver MD Work Phone: [facility] 02-13-2020 influenza virus vacc ine, unspecified formulation Mady Kramer Jr. [facility] 02-02-2020 pneumococcal conjuga te vaccine, 13 valent Sancho LEE [facility] 12-30-2019 influenza virus vacc ine, unspecified formulation Sancho LEE [facility] 04-10-2019 pneumococcal conjuga te vaccine, 13 valent Sancho LEE [facility] 01-11-2019 influenza virus vacc ine, unspecified formulation Sancho LEE [facility] 03-15-2018 influenza virus vacc ine, unspecified formulation Sancho LEE [facility] 03-15-2018 pneumococcal polysaccharide vaccine, 23 valent Sanchoeverardo LEE [facility] 04-13-2017 influenza virus vacc ine, unspecified formulation Sanchoeverardo LEE [facility] 01-30-2017 pneumococcal conjuga te vaccine, 13 valent Sancho LEE [facility] 09-21-2014 zoster vaccine, live Sancho LEE [facility] 03-30-2012 pneumococcal polysaccharide vaccine, 23 valent Mady Kramer Jr. [facility] Comment on above: Early/Late Reason: N ew Med Order Payers Date Payer Category Payer Self-pay [id number] 2022 Unknown AARP AARP [id number] 2022-Present [address] [place] [address] [id number]. [id number] 2011 Medicare MEDICARE MEDICAR E PART B [id number] 2011-[place] [address] Medicare [id number]. [id number] 1959 Medicare [id number] 1959 Unknown [id number] 1945 Unknown [id number] 2.16.840.1.315874.3.579.2. 593 1946 Unknown [id number] 2.16.840.1.090090.3.579.2. 593 1946 Unknown [id number] 2.16.840.1.750988.3.579.2. 593 1946 Unknown [id number] 2.16.840.1.614362.3.579.2. 593 1946 Unknown [id number] 2.16.840.1.627854.3.579.2. 593 1946 Unknown [id number] 2.16.840.1.035267.3.579.2. 593 1946 Unknown [id number] 2.16.840.1.116467.3.579.2. 593 1946 Unknown [id number] 2.16.840.1.822608.3.579.2. 727 1946 Unknown [id number] 2.16.840.1.556370.3.579.2. 727 1946 Unknown [id number] 2.16.840.1.158680.3.579.2. 727 1946 Unknown [id number] 2.16.840.1.028315.3.579.2. 727 1946 Unknown [id number] 2.16.840.1.995909.3.579.2. 727 1946 Unknown [id number] 2.16.840.1.527042.3.579.2. 727 1946 Unknown [id number] 2.16.840.1.242084.3.579.2. 727 Private Health Insurance [facility] [id number] Unknown [id number] 2.16.840.1.869621.3.579.2. 531 Unknown [id number] 2.16.840.1.796221.3.579.2. 531 Unknown [id number] 2.16.840.1.525925.3.579.2. 531 Unknown [id number] 2.16.840.1.660117.3.579.2. 531 Unknown [id number] 2.16.840.1.765589.3.579.2. 531 Unknown [id number] 2.16.840.1.501489.3.579.2. 531 Unknown [id number] 2.16.840.1.291635.3.579.2. 531 Social History Date Type Detail Facility Start: 03-21-2021 End: 11-21-2022 Tobacco smoking status Never smoked tobacco (finding) [facility] Sex Assigned At Male [facility] Start: 06-18-2021 End: 06-18-2021 Tobacco smoking status NHIS Ex-smoker (finding) [facility] Start: 1945 Sex Assigned At Male F [facility] Tobacco smoking status Never [facility] Tobacco smoking status NHIS Tobacco smoking consumption unknown [facility] Start: 1945 Sex Assigned At Not on file [facility] Medical Equipment Procedure Code Equipment Code Equipment Origin al Text Equipment Identifier Dates CYSTOSCOPY RETROGRADE STENT INSERTION Williams Ogden MD, Mady Liao 04/18/21 Non Biological Ureter L {[id number] FDA Start: 04-18-2021 Goals Date Patient Goal Desired Activity /State Functional Status Date Assessment Result Facility 04-24-2023 Functional status Patient at Baseline [facility] Work Phone: 10-29-2021 Functional Status N/A [facility] Mental Status Date Assessment Result Facility 04-24-2023 Cognitive function Cognitive Sta tus Patient at Baseline [facility] Work Phone: Clinical Notes 10-29-2021 to 06-11-2023 Note Date & Type Note Facility 06-11-2023 Evaluation note Encounter Date Diagnosis Assessment Notes Jun, 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 The right groin wound is a warm moist environment which unfortunately causes this delayed wound healing. Patient wears a brief and is wheelchair-bound which adds to the issue even more. Discussed recommendation for irrigation debridement of the wound and application of wound VAC to aid in healing of this right groin wound that has been ongoing for some time now with no improvement. The right groin area is quite emaciated and the wound is covered in slough once again today despite good wound care and consistent dressing changes. Procedure for wound debridement and irrigation was explained and all questions were addressed. We will get him on the schedule in the near future. We will contact Mr. Diego son and notify him of our plans. 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 [...] his normal follow-up for additional wound check. [facility] Other 01-11-2024 Evaluation note* Encounter Date Diagnosis [...] also forward today's office note to [facility] as well. They verbalized understanding in the office today, agree with plan, deny any questions. Will see him in a week or 2, sooner as needed. May, Encounter for surgical aftercare following surgery of circulatory system (ICD-10 - Z48.812) [facility] Other 01-04-2024 Hospital Discharge instructions Follow Up Care 05/07/2023 09:48:20 With:JESUS DEAL, Sancho R, URL Address: [facility] [address] [place] [phone] When: Unknown [facility] 12-20-2023 Progress note Author Linda Rodriguez [facility] April 22, 2023 8:46am Note Date/Time April 22, 2023 8:14am [facility] [address] [place] [address] Vascular Surgery Progress Note Signed Patient: Sebastian Diego MR#: [id number] : 1945 Acct:[id number] Age/Sex: 77 / M Adm Date: 3 Loc: 4N Room: [address] [place] [address] Type: ADM IN Attending Dr: Lnida Rodriguez MD Copies to: ~ Date of [...] signed by Linda Rodriguez MD> 04/22/23 0846 [facility] Work Phone: 1(914) 780-417812-19-2023 Progress note Author Linda Rodriguez [facility] April 21, 2023 3:33pm Note Date/Time April 21, 2023 8:41am [facility] [address] [place] [address] Vascular Surgery Progress Note Signed Patient: Sebastian Diego MR#: [id number] : 1945 Acct:[id number] Age/Sex: 77 / M Adm Date: 3 Loc: 4N Room: [address] [place] [address] Type: ADM IN Attending Dr: Linda Rodriguez [...] MPV Neut % (Auto) Lymph % (Auto) [place] % (Auto) Eos % (Auto) Baso % (Auto) Nucleat RBC Rel Count Neut # (Auto) Lymph # (Auto) [place] # (Auto) Eos # (Auto) Baso # [...] % (Auto) 91.3 Lymph % (Auto) 3.9 [place] % (Auto) 4.6 Eos % (Auto) 0.0 Baso % (Auto) 0.2 Nucleat RBC Rel Count 0.0 Neut # (Auto) 16.0 H Lymph # (Auto) 0.7 L [place] # (Auto) 0.8 Eos # (Auto) 0.0 Baso # (Auto) 0.0 Activated Clotting Time PHA Creatinine Clear Sodium Potassium Chloride Carbon Dioxide Anion Gap BUN Creatinine Est GFR (CKD-EPI) Glucose POC Glucose 154 156 POC Glucose Comment Glu2: cleaned meter Calcium Blood Type Blood Type Recheck Antibody Screen Crossmatch ([facility]) 04/21/23 05:33 Corrected WBC Uncorrected WBC Count RBC Hgb Hct MCV MCH MCHC RDW Plt Count MPV Neut % (Auto) Lymph % (Auto) [place] % (Auto) Eos % (Auto) Baso % (Auto) Nucleat RBC Rel Count Neut # (Auto) Lymph # (Auto) [place] # (Auto) Eos # (Auto) Baso # (Auto) Activated Clotting Time PHA Creatinine Clear 54.31 Sodium 137 Potassium Chloride 106 Carbon Dioxide 24.7 Anion Gap TNP BUN 19 Creatinine 1.06 Est GFR (CKD-EPI) > 60.0 Glucose 130 H POC Glucose POC Glucose Comment Calcium 8.0 L Blood Type Blood Type Recheck Antibody Screen Crossmatch ([facility]) A&P - Vascular Assessment/Plan (1) Femoral [...] physical therapy today. I will ask the long term care social worker to see him with regards to placement. [...] <Electronically signed by Linda Rodriguez MD> 04/21/23 1533 [facility] Work Phone: 1(361) 527-463912-18-2023 [facility]11-13-2023 Evaluation note* Encounter Date Diagnosis [...] H43.813) Mar, Abnormal EKG (ICD-10 - R94.31) [facility] Other 11-08-2023 Evaluation note* Encounter Date Diagnosis [...] help him he voiced understanding of this. [facility] Other 10-18-2023 Evaluation note* Encounter Date Diagnosis [...] after the study to for further recommendations. [facility] Other 05-22-2023 NoteChief Complaint Referral *Elevated PSA [...] Sancho Narayanan, URL [facility] [address] [place] [address]- Additional Instructions: schedule MRI of prostate, f/u [...] BID metformin 500 mg Tab Potassium Chloride (Fib-Rpgx-Unw 10) 10 mEq oral tablet, extended release [...] Comments SARS-CoV-2 (COVID-19) mRN (more content not included)...[facility]:Result Comment: Electronically Signed By: Lynne Mas\.br\Date and Time Signed: 09/22/22 13:12 EDT\.br\Electronically Co-Signed By: JESUS DEAL, Sancho Narayanan\.br\Date and Time Co-Signed: 09/22/22 13:22 [id number] NoteUNOH[facility] - NEUROPSYCHOLOGY [address] [place] [address]. [place] [address] Mr. Sebastian Diego was seen for a neuropsychological evaluation on 07/21/2022. A report describing the results of this evaluation will be posted upon completion. Linda Workman, PhD, ABPP Board Certified Clinical Neuropsychologist OUTPATIENT REHABILITATION SERVICES NEUROPSYCHOLOGY [address] [place] [address] FAX: [phone] NEUROPSYCHOLOGICAL EVALUATION DATES OF SERVICE: 07/21/2022 DIANGOSES: [...] thyroid gland, elevated parathy (more content not included)...[facility]03-20-2023 [id number] Sebastian Diego 1945 M Date Provider Department Center 07/21/2022 LINDA MARTINEZ MP [facility] Medical Pavi No family history on fileLake[facility]06-28-[facility] Hospital Discharge instructions Patient Education 10/29/2021 11:03:50 [...] Follow these instructions at home: Medicines Take pqrn-dcp-nglrmlo and prescription medicines only as told by [...] or the blood stops without treatment. Take ezyp-aay-fioopkc and prescription medicines only as told by your health care provider. Drink enough fluid to keep your urine clear or pale yellow. This information is not intended to replace advice given to you by your health care provider. Make sure you discuss any questions you have with your health care provider. Document Released: 04/20/2006 Document Revised: 09/14/2019 Document Reviewed: 05/23/2017 [employer] Patient Education 2020 [employer]. Follow Up Care 04/25/2021 09:31:27 With:Mady Kramer Jr., MD, URO Address: [facility] [address] [place] [phone] When:10/29/2022 Comments:PSA, KUB [facility] evaluation + Plan note Future Appointments Appointment Date:11/11/2022 11:15:00 AM Scheduled Provider:Mady Kramer Jr., MD Location:[facility] Appointment Type:URO Office Visit Diagnostic Tests Pending * PSA Total 10/29/21 [facility] evaluation + Plan note Future Appointments Appointment Date:04/17/2023 09:30:00 AM Scheduled Provider:Sancho LEE MD Location:[facility] Appointment Type:URO Office Visit [facility] evaluation + Plan note Future Appointments Appointment Date:06/19/2023 11:15:00 AM Scheduled Provider:Sancho LEE MD Location:[facility] Appointment Type:URO Office Visit [facility] Evaluation noteNo assessment information available [facility] Work Phone: Evaluation noteNo InformationNort Pencil You In Other evaluation note* Diagnosis Onset Date Resolution Status Femoral artery aneurysm, right acute [facility] Work Phone: Hiscbpu general Narrative - Reported* Type Description Date [...] SEE ABOVE SURGERIES Hospitalization History Confusion/ TIA [facility] Other Hospital course Narrative No data available for this section [facility] Dis[facility] instructions No data available for this section [facility] Discharge instructions Additional Instructions Continue rest ice elevate Tylenol 650 mg to 1000 mg every 4 hours for pain Wear the wrist splint as needed for comfort stability Follow-up with your family doctor for recheck Return to the ER for worsening pain loss of circulation in your fingers fever chills or any other [facility]Hol[facility] Work Phone: Hospital Discharge instructions Additional Instructions May shower. Do not soak in bathtub. Keep Prevena dressing in place x 7 days. Then remove entire dressing and discard. After that, wash daily with mild soap and water, pat dry, apply clean dry dressing.[facility] Work Phone: Progress note No data available for this section [facility] Summary Purpose Family History Relationship Condition Age at Onset Recorded Date/T samara Not Specified Myocardial infarction Unknown brother Chronic obstructive pulmonary disease Unk nown Advance Directives Advance Directive Response Recorded Date/ Time Advance [...] Sancho Lee MD Attending Provider Active Carmelita Zavala Primary Care Provider Active Team Status: Inactive Member Role Status Dates Carmelita Zavala Primary Care Provider Active Sancho Lee MD Attending Provider Active Team Status: Inactive Member Role Status Dates Carmelita Zavala Primary Care Provider Active Linda Rodriguez MD Attending Provider Active Team Status: Inactive Member Role Status Dates Carmelita Zavala Primary Care Provider Active Glo Singleton MD Attending Provider, Referring Provi rylee Active Team Status: Inactive Member Role Status Dates Carmelita Zavala Primary Care Provider Active JAVIER RaglandP- Emergency Provider Active Team Status: Inactive Member Role Status Dates Carmelita Zavala Primary Care Provider Active Linda Rodriguez MD Admit Provider, Attending Pr ovider Active Tailor'S Aide Relationship Specialty Start Date End Date Bruno Rizzo MD [address] [place] [address] PCP - General Family Medicine 06/08/23 Carmelita Zavala NP [address] [place] [address] Nurse Practitioner Family Medicine 03/04/23 (unrecognized sect ion and content) No Status Records FoundNo Status Records FoundNo Status Records FoundNo Status Records Found INFORMATION SOURCE (unrecogn ized section and content) DATE CREATED AUTHOR 08/19/2022 [facility] DATE CREATED AUTHOR AUTHOR'S ORGANIZ ATION 08/28/2022 [facility] DATE CREATED AUTHOR AUTHOR'S ORGANIZ ATION 04/30/2023 [facility] DATE CREATED AUTHOR AUTHOR'S ORGANIZ ATION 06/02/2023 [place] Goals (unrecognized section and content) Goals may be documented in a n alternate section REASON FOR VISIT (unrecogniz ed section and content) NEW PATIENT REF BY DR. DESIR S FOR FEMORAL ARTERY ANEURYSMGO OVER CT SCAN AND U/S 930ACardiac Clearance AAA Dr. Rodriguezsucarygery clearanceNo Informationsurgery questions3-week follow-up femoral aneurysm repairWOUND CHECKPLAVIX AND ASAwound check FOR RECORDS PERTAINING TO PATIENTS WHO ARE [...] BE BASED ON THE PRIMARY CLINICAL RECORDS. [employer] provides no warranty or guarantee of the accuracy or completeness of information in this document.
[2023-06-15 07:52] LABS: Alanine Aminotransferase 15 U/L (16-63); Albumin Globulin Ratio 0.6; Albumin Level 2.2 g/dL (3.4-5.0); Alkaline Phosphatase 192 U/L (46-116); Anion Gap 10.1; Aspartate Amino Transferase 17 U/L (15-37); BUN Creatinine Ratio 31.7; Bilirubin Total 0.3 mg/dL (0.2-1.0); Calcium 8.9 mg/dL (8.5-10.1); Carbon Dioxide 30.5 mmol/L (21.0-32.0); Chloride 108 mmol/L (98-107); Estimated GFR (African America 50 (>=60); Estimated GFR (Non-African Ame 41 (>=60); Globulin 3.7 g/dL; Glucose 83 mg/dL (74-106); Potassium 5.6 mmol/L (3.5-5.1); Sodium 143 mmol/L (136-145); Total Protein 5.9 g/dL (6.4-8.2)
== END 2023-06-15 01:47 | disposition home or self-care (01) ==
LOC: LAB 01:46
PROVIDERS: PCP Nurse Practitioner; Visit Provider Family Medicine
DX: Z51.81 Encounter for therapeutic drug level monitoring (principal); R79.89 Other specified abnormal findings of blood chemistry
CPT/HCPCS: 36415; 80053

== ENCOUNTER 2023-06-17 01:39 | Outpatient (REF) | payer MEDICARE, SELFPAY ==
[2023-06-17 08:00] LABS: Anion Gap 12.9; BUN Creatinine Ratio 29.8; Calcium 8.6 mg/dL (8.5-10.1); Carbon Dioxide 26.3 mmol/L (21.0-32.0); Chloride 111 mmol/L (98-107); Estimated GFR (African America >60 (>=60); Estimated GFR (Non-African Ame 57 (>=60); Glucose 81 mg/dL (74-106); Potassium 4.2 mmol/L (3.5-5.1); Sodium 146 mmol/L (136-145)
== END 2023-06-17 01:40 | disposition home or self-care (01) ==
LOC: LAB 01:39
PROVIDERS: PCP Nurse Practitioner; Visit Provider Family Medicine
DX: R79.89 Other specified abnormal findings of blood chemistry (principal)
CPT/HCPCS: 36415; 80048

== ENCOUNTER 2023-10-03 18:27 | Observation (INO) | payer MEDICARE, SELFPAY ==
[2023-10-03] VITALS (31 sets, daily range): BP systolic 104–125; BP diastolic 60–76; PULSE 71–112; TEMP 36.4–36.6; O2SAT 91–97; BMI 26.2
--- NOTE | 2023-10-03 18:34 | PC.NURSE ---
Per alf staff pt's confusion has been increasing over the day. Pt is not combative but will not allow RN to do more then vitals at this time. is going in room shortly to talk with pt. Pt is upset that he is here.
--- NOTE | 2023-10-03 18:42 | ED_ITS ---
HPI HPI - General Adult General Chief complaint: Altered Mental Status Stated complaint: CONFUSION Time Seen by Provider: 10/03/23 18:31 Source: medical record Mode of arrival: ambulance Limitations: no limitations History of Present Illness HPI narrative: This patient was brought to us by medics from the [facility]. Patient is unable to provide any useful disturbance she has fairly advanced dementia. They felt that he was a little bit more agitated than usual. He has a plethora of medical conditions noted on his transfer sheet. He was not noted to be running a fever. The patient had laboratory testing done on September 30 that showed 10-50 WBCs in his urine 5-10 RBCs. His culture showed greater than 100,000 colonies of mixed robert with greater than 3 organisms present none predominant according to the outpatient laboratory slips. However he was started on Cipro 500 mg twice daily. This patient's had a chronic indwelling Chen catheter for quite some time. He was somewhat agitated with the paramedics who brought him here and remained so here in the ER. I believe this is his baseline mentation however. Other problems include type 2 diabetes/hypothyroidism/depression BPH history of ARF bilateral amputee lower limbs no family members are here with him at this time to give us any type of status report. Last several days he has not been running a fever. Vital signs are noted here he is still afebrile with normal pulse and blood pressure as noted. Related Data Home Medications ?Medication ?Instructions ?Recorded ?Confirmed doxycycline hyclate 100 mg capsule 100 mg PO Q12H 04/09/23 04/09/23 Allergies Allergy/AdvReac Type Severity Reaction Status Date / Time Beta-Blockers Allergy Severe Verified 04/09/23 12:17 (Beta-Adrenergic Bloc iv dye contrast Allergy Severe Uncoded 04/09/23 12:17 Opioid HPI Opioid Management Most Recent Opioid Data: Last Pain Scale 10 04/09/23 12:58 PFSH PFSH Social History Smoking status: Never smoker Exam Narrative Exam Narrative: Patient is awake alert oriented to her name but not place or situation. Modestly agitated but not violent. Skin is warm and dry with no pallor or petechiae or diaphoresis HEENT shows no focus of infection, no conjunctivitis. Extraocular muscles are normal. There is no facial asymmetry Lungs are clear with no wheeze rales or rhonchi. Heart sounds are regular. A bdomen is nontender to palpation. He has an indwelling Chen catheter. It is draining clear yellow urine. He has bilateral lower limb amputations above the knee. Constitutional Vital Signs, click to edit/add: Last Vital Signs Temp 97.8 F 10/03/23 18:28 Pulse 91 H 10/03/23 18:28 Resp 16 10/03/23 18:28 BP 104/64 10/03/23 18:28 Pulse Ox 97 10/03/23 18:28 O2 Del Method Room Air 10/03/23 18:28 Course Vital Signs Vital signs: Vital Signs Temperature 97.8 F 10/03/23 18:28 Pulse Rate 91 H 10/03/23 18:28 Respiratory Rate 16 10/03/23 18:28 Blood Pressure 104/64 10/03/23 18:28 Pulse Oximetry 97 10/03/23 18:28 Oxygen Delivery Method Room Air 10/03/23 18:28 Temperature 97.8 F 10/03/23 18:28 Pulse Rate 91 H 10/03/23 18:28 Respiratory Rate 16 10/03/23 18:28 Blood Pressure 104/64 10/03/23 18:28 Pulse Oximetry 97 10/03/23 18:28 Oxygen Delivery Method Room Air 10/03/23 18:28 Medical Decision Making MDM Narrative Medical decision making narrative: Workup will be initiated by myself care turned over the next ER physician at change of shift. He has a number of medical problems with a mild change in his normal cognition and behavior patterns. He will be given a low-dose Ativan. Discharge Plan Discharge Chief Complaint: Altered Mental Status Clinical Impression: Altered mental status Patient Disposition: Still a Patient Prescriptions / Home Meds: No Action doxycycline hyclate 100 mg capsule 100 mg PO Q12H Print Language: Greenlandic Referrals: Carmelita Zavala NP [Primary Care Provider] - 1 week
--- NOTE | 2023-10-03 18:49 | ECG_ITS ---
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
--- NOTE | 2023-10-03 18:49 | XR_ITS ---
[address] [address] Patient Name: SHABBIR MARIO MRN: [id number] date: 1945 Sex: M Assigned Patient Location: ER Current Patient Location: ED.MAIN Accession/Order Number: [id number] Exam Date: 10/03/2023 19:14 Report Date: 10/03/2023 20:06 At the request of: KAYLA BAIRD Procedure: XR chest 1V EXAMINATION: XR chest 1V, , 10/03/2023 7:14 PM EDT INDICATION: Altered mental status HISTORY: Ordering Provider Reason for Exam: Altered mental status Technologist Note: Additional: COMPARISON: Chest x-ray of 01/13/2022. TECHNIQUE: Chest x-ray: One view. FINDINGS: No pneumothorax, pleural effusion or focal airspace consolidation. Heart is normal in size. Bony thorax is unremarkable. XR/XR chest 1V IMPRESSION: No acute cardiopulmonary process. Electronically authenticated by: GAEL JAIMES Date: 10/03/2023 20:06
[2023-10-03 19:01] LABS: Bilirubin Urine NEGATIVE (NEGATIVE); Blood Urine LARGE (NEGATIVE); Clarity Urine CLEAR (CLEAR); Color Urine YELLOW (YELLOW); Glucose Urine UA NEGATIVE (NEGATIVE); Ketones Urine 15 mg/dL (NEGATIVE); Leukocyte Esterase Urine SMALL (NEGATIVE); Nitrite Urine POSITIVE (NEGATIVE); Protein Urine 30 mg/dL (NEG/TRACE); Specific Gravity Urine >=1.030 (1.005-1.025); Urine Microscopic Indicated YES
[2023-10-03 19:15] LABS: Basophils Percent Auto 0.6 % (0.2-2.0); Eosinophils Absolute Auto 0.2 10^3/uL (0.0-0.7); Eosinophils Percent Auto 2.7 % (0.9-7.0); Hematocrit 42.9 % (42.0-54.0); Hemoglobin 13.2 g/dL (14.0-18.0); Immature Granulocytes Abs Auto 0.03 10^3/uL (0.00-0.03); Immature Granulocytes Pct Auto 0.5 % (0.0-0.5); Lymphocytes Absolute Auto 1.4 10^3/uL (1.2-3.8); Lymphocytes Percent Auto 21.3 % (20.5-60.0); Mean Corpuscular HGB Conc 30.8 g/dL (29.9-35.2); Mean Corpuscular Volume 84.6 fL (80.0-94.0); Mean Platelet Volume 8.3 fL (9.5-13.5); Monocytes Absolute Auto 0.5 10^3/uL (0.3-0.8); Monocytes Percent Auto 7.5 % (1.7-12.0); Neutrophils Absolute Auto 4.3 10^3/uL (1.4-6.5); Neutrophils Percent Auto 67.4 % (43.0-75.0); Platelet Count 356 10^3/uL (150-450); Red Blood Count 5.07 10^6/uL (4.70-6.10); Red Cell Distribution Width 13.2 % (11.0-15.0); White Blood Count 6.4 10^3/uL (4.0-11.0)
[2023-10-03 19:19] LABS: Bacteria Urine LARGE #/HPF (NONE SEEN); Cast Seen? NONE SEEN #/LPF (NONE SEEN); Crystals Seen? None Seen #/HPF (None Seen); Mucus Urine NONE SEEN (NONE SEEN); Squamous Epithelial Cell Urine RARE #/LPF (NONE/RARE); Urine Culture Indicated YES
[2023-10-03 19:25] LABS: INR 1.08; Prothrombin Time 11.4 sec (9.0-11.6)
[2023-10-03 19:31] LABS: Lactate/Lactic Acid 1.7 mmol/L (0.4-2.0)
[2023-10-03 19:38] LABS: Alanine Aminotransferase 7 U/L (16-63); Albumin Globulin Ratio 0.6; Albumin Level 2.6 g/dL (3.4-5.0); Alkaline Phosphatase 784 U/L (46-116); Anion Gap 14.4; Aspartate Amino Transferase 12 U/L (15-37); BUN Creatinine Ratio 21.7; Bilirubin Total 0.4 mg/dL (0.2-1.0); Calcium 9.1 mg/dL (8.5-10.1); Carbon Dioxide 23.7 mmol/L (21.0-32.0); Chloride 102 mmol/L (98-107); Estimated GFR (African America >60 (>=60); Estimated GFR (Non-African Ame 59 (>=60); Globulin 4.5 g/dL; Glucose 132 mg/dL (74-106); Potassium 4.1 mmol/L (3.5-5.1); Sodium 136 mmol/L (136-145); Total Protein 7.1 g/dL (6.4-8.2)
[2023-10-03] MEDS: 0.9 % SODIUM CHLORIDE 1,000 ML 999 ML IV (19:51)
[2023-10-03] MEDS: LORAZEPAM 2 MG/ML VIAL 1 MG IV (19:52)
[2023-10-03] MEDS: CEFTRIAXONE 1,000 MG in 0.9 % SODIUM CHLORIDE 50 ML 100 MG IV (20:11)
--- NOTE | 2023-10-03 20:46 | ED.GENADUL1 ---
HPI HPI - General Adult General Chief complaint: Altered Mental Status Stated complaint: CONFUSION Time Seen by Provider: 10/03/23 18:31 Source: medical record Mode of arrival: ambulance Limitations: no limitations History of Present Illness HPI narrative: The patient presented to the emergency department and was initially seen by Dr. Guerin and signed out to me after discussing the case with him thoroughly. Please see his full history and physical exam. Related Data Home Medications ?Medication ?Instructions ?Recorded ?Confirmed doxycycline hyclate 100 mg capsule 100 mg PO Q12H 04/09/23 04/09/23 Allergies Allergy/AdvReac Type Severity Reaction Status Date / Time Beta-Blockers Allergy Severe Verified 04/09/23 12:17 (Beta-Adrenergic Bloc iv dye contrast Allergy Severe Uncoded 04/09/23 12:17 Opioid HPI Opioid Management Most Recent Opioid Data: Last Pain Scale 10 04/09/23 12:58 PFSH PFSH Social History Smoking status: Never smoker Exam Constitutional Vital Signs, click to edit/add: Last Vital Signs Temp 97.8 F 10/03/23 18:28 Pulse 91 H 10/03/23 18:28 Resp 16 10/03/23 18:28 BP 104/64 10/03/23 18:28 Pulse Ox 97 10/03/23 18:28 O2 Del Method Room Air 10/03/23 18:28 Course Vital Signs Vital signs: Vital Signs Temperature 97.8 F 10/03/23 18:28 Pulse Rate 91 H 10/03/23 18:28 Respiratory Rate 16 10/03/23 18:28 Blood Pressure 104/64 10/03/23 18:28 Pulse Oximetry 97 10/03/23 18:28 Oxygen Delivery Method Room Air 10/03/23 18:28 Temperature 97.8 F 10/03/23 18:28 Pulse Rate 91 H 10/03/23 18:28 Respiratory Rate 16 10/03/23 18:28 Blood Pressure 104/64 10/03/23 18:28 Pulse Oximetry 97 10/03/23 18:28 Oxygen Delivery Method Room Air 10/03/23 18:28 Medical Decision Making MDM Narrative Medical decision making narrative: Workup indicates UTI. WBC 6.4. Cultures were obtained and he was given IV Rocephin and he is being admitted. Differential Diagnosis Differential Diagnosis: UTI, dehydration Lab Data Lab results reviewed: Yes I reviewed the patient's lab results Labs: Lab Results 10/03/23 10/03/23 Range/Units 18:40 19:04 WBC 6.4 (4.0-11.0) 10^3/uL RBC 5.07 (4.70-6.10) 10^6/uL Hgb 13.2 L (14.0-18.0) g/dL Hct 42.9 (42.0-54.0) % MCV 84.6 (80.0-94.0) fL MCH 26.0 (25.9-34.0) pg MCHC 30.8 (29.9-35.2) g/dL RDW 13.2 (11.0-15.0) % Plt Count 356 (150-450) 10^3/uL MPV 8.3 L (9.5-13.5) fL Neut % (Auto) 67.4 (43.0-75.0) % Lymph % (Auto) 21.3 (20.5-60.0) % [place] % (Auto) 7.5 (1.7-12.0) % Eos % (Auto) 2.7 (0.9-7.0) % Baso % (Auto) 0.6 (0.2-2.0) % Neut # (Auto) 4.3 (1.4-6.5) 10^3/uL Lymph # (Auto) 1.4 (1.2-3.8) 10^3/uL [place] # (Auto) 0.5 (0.3-0.8) 10^3/uL Eos # (Auto) 0.2 (0.0-0.7) 10^3/uL Baso # (Auto) 0.0 (0.0-0.1) 10^3/uL Abs Immat Gran (auto) 0.03 (0.00-0.03) 10^3/uL Imm/Tot Granulo (auto) 0.5 (0.0-0.5) % PT 11.4 (9.0-11.6) sec INR 1.08 Sodium 136 (136-145) mmol/L Potassium 4.1 (3.5-5.1) mmol/L Chloride 102 (98-107) mmol/L Carbon Dioxide 23.7 (21.0-32.0) mmol/L Anion Gap 14.4 BUN 26.0 H (7.0-18.0) mg/dL Creatinine 1.20 (0.70-1.30) mg/dL Est GFR ( Amer) >60 (>=60) Est GFR (Non-Af Amer) 59 L (>=60) BUN/Creatinine Ratio 21.7 Glucose 132 H (74-106) mg/dL Lactate 1.7 (0.4-2.0) mmol/L Calcium 9.1 (8.5-10.1) mg/dL Total Bilirubin 0.4 (0.2-1.0) mg/dL AST 12 L (15-37) U/L ALT 7 L (16-63) U/L Alkaline Phosphatase 784 H (46-116) U/L Total Protein 7.1 (6.4-8.2) g/dL Albumin 2.6 L (3.4-5.0) g/dL Globulin 4.5 g/dL Albumin/Globulin Ratio 0.6 Urine Color Yellow (YELLOW) Urine Clarity Clear (CLEAR) Urine pH 6.0 (5.0-9.0) Ur Specific [place] >=1.030 A (1.005-1.025) Urine Protein 30 A (NEG/TRACE) mg/dL Urine Glucose (UA) Negative (NEGATIVE) mg/dL Urine Ketones 15 A (NEGATIVE) mg/dL Urine Occult Blood Large A (NEGATIVE) Urine Nitrite Positive A (NEGATIVE) Urine Bilirubin Negative (NEGATIVE) Urine Urobilinogen 1.0 (0.2-1.0) EU/dL Ur Leukocyte Esterase Small A (NEGATIVE) Urine RBC 5-10 A (0-2) #/HPF Urine WBC 10-20 A (NONE SEEN) #/HPF Ur Squamous Epith Cells Rare (NONE/RARE) #/LPF Urine Crystals None seen (None Seen) #/HPF Urine Bacteria Large A (NONE SEEN) #/HPF Urine Casts None seen (NONE SEEN) #/LPF Urine Mucus None seen (NONE SEEN) Ur Culture Indicated? Yes Imaging Data Chest x-ray: Radiologist's impression: ITS Impressions Chest X-Ray 10/03/23 18:49 IMPRESSION: No acute cardiopulmonary process. Electronically authenticated by: GAEL JAIMES Date: 10/03/2023 20:06 Discharge Plan Discharge Chief Complaint: Altered Mental Status Clinical Impression: Altered mental status, Urinary tract infection Patient Disposition: Admitted as Observation Time of Disposition Decision: 20:45 Condition: Good
--- NOTE | 2023-10-03 23:58 | ECG_ITS ---
The [facility] Test Date: 2023-10-03 Pat Name: SHABBIR MARIO Department: Room: [facility] Gender: Male [employer] Ten[employer]: : 1945 Requested By: OSWALDO VILLANUEVA Order Number: [id number] Reading MD: SARAH HARMON Measurements Intervals [place] Rate: 80 P: 51 CO: 180 QRS: -42 QRSD: 88 T: 47 QT: 350 QTc: 386 Interpretive Statements 1100 Sinus rhythm 3114 Cannot rule out anterior myocardial infarction, age undetermined 7200 Abnormal left axis deviation 8102 Low QRS voltage in chest leads 9150 abnormal ECG Electronically Signed On 10-04-2023 8:23:28 EDT by SARAH HARMON
[2023-10-04 05:09] VITALS: BP 111/71; PULSE 62; TEMP 36.5; O2SAT 92
[2023-10-04 05:36] LABS: Basophils Absolute Auto 0.1 10^3/uL (0.0-0.1); Basophils Percent Auto 0.7 % (0.2-2.0); Eosinophils Absolute Auto 0.3 10^3/uL (0.0-0.7); Eosinophils Percent Auto 4.4 % (0.9-7.0); Hematocrit 40.4 % (42.0-54.0); Hemoglobin 12.3 g/dL (14.0-18.0); Immature Granulocytes Abs Auto 0.05 10^3/uL (0.00-0.03); Immature Granulocytes Pct Auto 0.7 % (0.0-0.5); Lymphocytes Absolute Auto 1.7 10^3/uL (1.2-3.8); Lymphocytes Percent Auto 22.7 % (20.5-60.0); Mean Corpuscular HGB Conc 30.4 g/dL (29.9-35.2); Mean Corpuscular Hemoglobin 26.8 pg (25.9-34.0); Mean Platelet Volume 8.8 fL (9.5-13.5); Monocytes Absolute Auto 0.7 10^3/uL (0.3-0.8); Monocytes Percent Auto 9.1 % (1.7-12.0); Neutrophils Absolute Auto 4.7 10^3/uL (1.4-6.5); Neutrophils Percent Auto 62.4 % (43.0-75.0); Platelet Count 298 10^3/uL (150-450); Red Blood Count 4.59 10^6/uL (4.70-6.10); Red Cell Distribution Width 13.2 % (11.0-15.0); White Blood Count 7.6 10^3/uL (4.0-11.0)
[2023-10-04 05:55] LABS: Alanine Aminotransferase <6 U/L (16-63); Albumin Globulin Ratio 0.6; Albumin Level 2.2 g/dL (3.4-5.0); Alkaline Phosphatase 667 U/L (46-116); Anion Gap 12.8; Aspartate Amino Transferase 14 U/L (15-37); Bilirubin Total 0.3 mg/dL (0.2-1.0); Calcium 8.7 mg/dL (8.5-10.1); Carbon Dioxide 21.4 mmol/L (21.0-32.0); Chloride 105 mmol/L (98-107); Estimated GFR (African America >60 (>=60); Estimated GFR (Non-African Ame >60 (>=60); Globulin 3.9 g/dL; Glucose 81 mg/dL (74-106); Potassium 4.2 mmol/L (3.5-5.1); Sodium 135 mmol/L (136-145); Total Protein 6.1 g/dL (6.4-8.2)
[2023-10-04] MEDS: LEVOTHYROXINE SODIUM 25 MCG TABLET 50 MCG PO (06:18)
[2023-10-04] MEDS: LACTATED RINGER'S SOLUTION 1,000 ML 125 ML IV (07:01)
[2023-10-04] MEDS: HYDROXYZINE PAMOATE 25 MG CAPSULE 50 MG PO (09:48)
[2023-10-04] MEDS: BACLOFEN 10 MG TABLET PO (09:48)
[2023-10-04] MEDS: ENOXAPARIN SODIUM 40 MG/0.4 ML SYRINGE SUBQ (09:48)
[2023-10-04] MEDS: PREGABALIN 75 MG CAPSULE 150 MG PO (09:48)
[2023-10-04] MEDS: ASPIRIN 81 MG TABLET.DR PO (09:49)
[2023-10-04] MEDS: DULOXETINE HCL 30 MG CAPSULE.DR PO (09:49)
[2023-10-04] MEDS: CETIRIZINE HCL 10 MG TABLET PO (09:49)
[2023-10-04] MEDS: OXYCODONE HCL 5 MG TABLET PO (09:49)
[2023-10-04] MEDS: CLOPIDOGREL BISULFATE 75 MG TABLET PO (09:50)
[2023-10-04] MEDS: METFORMIN HCL 500 MG TABLET PO (09:50)
[2023-10-04] MEDS: LISINOPRIL 20 MG TABLET PO (09:50)
[2023-10-04] MEDS: TAMSULOSIN HCL 0.4 MG CAPSULE 0.400000000000000022 MG PO (09:50)
[2023-10-04] MEDS: DOCUSATE SODIUM 100 MG CAPSULE PO (09:50)
[2023-10-04] MEDS: POLYETHYLENE GLYCOL 3350 17 GM POWDER PACKET PO (09:58)
--- NOTE | 2023-10-04 10:21 | PM.HP ---
HPI H&P: HPI History of Present Illness Chief complaint: CONFUSION Narrative: HPI and Hospital Course: 78 y o male with hx of advanced dementia was brought in for change in mental status. According to the report, he was more agitated than usual/normal. He has chronic indwelling catheter and was recently started on ciprofloxacin for UTI. He was admitted overnight for UTI, change in mental status and started on IVF and rocephin. He seems to be at his baseline, remained calm overnight. Very limited information available/possible from patient due to hx of dementia. Its possible that agitation/behavioural disturbances were due to quinolone use and as such its generally recommended to avoid their use in the elderly anyways. I will switch him to oral ceftin to finish his course of abx for UTI. Stable for discharge medically. Opioid HPI Opioid Management Most Recent Opioid Data: Last Pain Scale 5 10/04/23 09:49 Last Pain Assessment 10/04/23 10:19 Last MAR Pain Assessment 10/04/23 09:49 Last ORT Total Score 0 10/03/23 23:31 Last ORT Risk Category Low Risk 10/03/23 23:31 Review of Systems ROS Status of ROS unobtainable due to mental status PFSH PFS Medical History (Updated 10/04/23 @ 10:30 by Shaikh Vic MD) HLD (hyperlipidemia) ?E78.5 - Hyperlipidemia, unspecified (ICD-10) Aneurysm of artery of lower extremity ?I72.4 - Aneurysm of artery of lower extremity (ICD-10) Acute kidney failure ?N17.9 - Acute kidney failure, unspecified (ICD-10) Essential (primary) hypertension ?I10 - Essential (primary) hypertension (ICD-10) Benign prostatic hyperplasia ?N40.0 - Benign prostatic hyperplasia without lower urinary tract symptoms (ICD-10) Falls ?W19.XXXA - Unspecified fall, initial encounter (ICD-10) Dementia ?F03.90 - Unspecified dementia, unspecified severity, without behavioral disturbance, psychotic disturbance, mood disturbance, and anxiety (ICD-10) Depression ?F32.A - Depression, unspecified (ICD-10) Phantom limb (syndrome) ?G54.7 - Phantom limb syndrome without pain (ICD-10) Type 2 diabetes mellitus ?E11.9 - Type 2 diabetes mellitus without complications (ICD-10) Social History Smoking status: Never smoker Meds Home Medications and Allergies Home Medications ?Medication ?Instructions ?Recorded ?Confirmed ?Type acetaminophen 325 mg capsule 325 mg PO Q6H PRN pain 10/03/23 10/03/23 History aspirin 81 mg tablet,delayed 81 mg PO DAILY 10/03/23 10/03/23 History release atorvastatin 40 mg tablet 40 mg PO DAILY 10/03/23 10/03/23 History baclofen 10 mg tablet 10 mg PO BID 10/03/23 10/03/23 History clopidogrel 75 mg tablet 75 mg PO DAILY 10/03/23 10/03/23 History docusate sodium 100 mg capsule 100 mg PO DAILY 10/03/23 10/03/23 History (Colace) duloxetine 30 mg capsule,delayed 30 mg PO DAILY 10/03/23 10/03/23 History release hydroxyzine HCl 50 mg tablet 50 mg PO BID 10/03/23 10/03/23 History levothyroxine 50 mcg capsule 50 mcg PO DAILY 10/03/23 10/03/23 History lisinopril 20 mg tablet 20 mg PO DAILY 10/03/23 10/03/23 History loratadine 10 mg tablet (Claritin) 10 mg PO DAILY 10/03/23 10/03/23 History metformin 500 mg tablet 500 mg PO DAILY 10/03/23 10/03/23 History oxycodone 5 mg capsule 5 mg PO Q8H PRN pain 10/03/23 10/03/23 History polyethylene glycol 3350 17 17 g PO DAILY 10/03/23 10/03/23 History gram/dose oral powder (Miralax) pregabalin 150 mg capsule 150 mg PO DAILY 10/03/23 10/03/23 History tamsulosin 0.4 mg capsule 0.4 mg PO DAILY 10/03/23 10/03/23 History cefuroxime axetil 250 mg tablet 250 mg PO BID 7 days #14 tabs 10/04/23 Rx Allergies Allergy/AdvReac Type Severity Reaction Status Date / Time Beta-Blockers Allergy Severe Verified 04/09/23 12:17 (Beta-Adrenergic Bloc iv dye contrast Allergy Severe Uncoded 04/09/23 12:17 Exam Constitutional Vital Signs, click to edit/add: Last Vital Signs Temp 97.7 F 10/04/23 05:09 Pulse 62 10/04/23 05:09 Resp 16 10/04/23 05:09 BP 111/71 10/04/23 05:09 Pulse Ox 92 L 10/04/23 05:09 O2 Del Method Room Air 10/04/23 05:09 Documenting provider has reviewed patient's vital signs: yes Common normals: no apparent distress and oriented x3 General appearance: cooperative Respiratory Common normals: normal respiratory effort and clear to auscultation bilaterally Effort & inspection: able to speak in complete sentences Auscultation: clear to auscultation bilaterally Cardio Common normals: regular rate, S1 normal heart sound and S2 normal heart sound Rate: regular rate Heart sounds: S1 normal and S2 normal GI Common normals: Normal to inspection, nondistended, normoactive bowel sounds present, soft to palpation, non-tender and no hepatosplenomegaly Palpation: soft and no hepatosplenomegaly Extremity Other: bilateral amputation of LE. Neuro Common normals: no focal motor deficits and no sensory deficits noted Sensorium/orientation: awake and alert Psych Attention/concentration: attention grossly intact Memory/cognition: memory grossly impaired and cognition grossly impaired Insight: limited Judgement: limited Results Labs Labs: Short CBC 10/03/23 10/04/23 Range/Units 19:04 04:36 WBC 6.4 7.6 (4.0-11.0) 10^3/uL Hgb 13.2 L 12.3 L (14.0-18.0) g/dL Hct 42.9 40.4 L (42.0-54.0) % Plt Count 356 298 (150-450) 10^3/uL BMP 10/03/23 10/04/23 19:04 04:36 Sodium 136 135 L Potassium 4.1 4.2 Chloride 102 105 Carbon Dioxide 23.7 21.4 BUN 26.0 H 24.0 H Creatinine 1.20 0.96 Glucose 132 H 81 Calcium 9.1 8.7 Liver Function 10/03/23 10/04/23 Range/Units 19:04 04:36 Total Bilirubin 0.4 0.3 (0.2-1.0) mg/dL AST 12 L 14 L (15-37) U/L ALT 7 L <6 L (16-63) U/L Alkaline Phosphatase 784 H 667 H (46-116) U/L Albumin 2.6 L 2.2 L (3.4-5.0) g/dL Urine 10/03/23 Range/Units 18:40 Urine Color Yellow (YELLOW) Urine Clarity Clear (CLEAR) Urine pH 6.0 (5.0-9.0) Ur Specific [place] >=1.030 A (1.005-1.025) Urine Protein 30 A (NEG/TRACE) mg/dL Urine Glucose (UA) Negative (NEGATIVE) mg/dL Assessment and Plan Assessment and Plan (1) Metabolic encephalopathy: Assessment and Plan: Resolved. back to baseline. likely due to UTI +/- quinolone use. Stable for discharge. (2) Urinary tract infection: Assessment and Plan: Stable for discharge on PO ceftin. Qualifiers: Urinary tract infection type: acute cystitis Hematuria presence: without hematuria Qualified Code(s): N30.00 - Acute cystitis without hematuria (3) Essential (primary) hypertension: Assessment and Plan: Stable. C/w home medications. (4) Benign prostatic hyperplasia: Assessment and Plan: Chronic indwelling catheter in place. Qualifiers: Lower urinary tract symptom presence: symptoms absent Qualified Code(s): N40.0 - Benign prostatic hyperplasia without lower urinary tract symptoms (5) Dementia: Assessment and Plan: Lives at halfway facility. Stable for discharge Qualifiers: Dementia type: Alzheimer's Alzheimer's disease onset: other onset Dementia severity: severe Dementia behavioral or psychological symptom: with agitation Qualified Code(s): G30.8 - Other Alzheimer's disease; F02.C11 - Dementia in other diseases classified elsewhere, severe, with agitation (6) Depression: Assessment and Plan: C/w home medications (7) Type 2 diabetes mellitus: Assessment and Plan: FSBS at goal. C/w metformin (8) HLD (hyperlipidemia): Assessment and Plan: c/w lipitor Urinary Catheter Management Urinary Catheter Management Urethral: Cath placed during this visit: no
[2023-10-04 11:15] VITALS: O2SAT 92
--- NOTE | 2023-10-04 12:00 | PC.NURSE ---
Flute Grinder called [facility] and set up transportation for discharge. Flute Grinder then called [facility] and gave report to nurse Cruz.
--- NOTE | 2023-10-04 12:09 | PC.NURSE ---
Nurse Private Duty called and updated son, Tristin, on discharge.
--- NOTE | 2023-10-07 10:04 | PC.NURSE ---
10/07/2023 Dr. Ho aware of positive urine culture and has addressed it in the office.
== END 2023-10-04 13:24 ==
LOC: ER 20:45 → MS 23:20
PROVIDERS: Emergency Medicine Emergency Medical Services; Registered Nurse; Admitting Provider Internal Medicine; Emergency Provider Emergency Medicine; PCP Nurse Practitioner; Visit Provider Internal Medicine
DX: T83.511A Infection and inflammatory reaction due to indwelling urethral catheter, initial encounter (principal); N30.00 Acute cystitis without hematuria; G93.41 Metabolic encephalopathy; N40.0 Benign prostatic hyperplasia without lower urinary tract symptoms; E11.9 Type 2 diabetes mellitus without complications; F32.A Depression, unspecified; G30.8 Other Alzheimer's disease; F02.C11 Dementia in other diseases classified elsewhere, severe, with agitation; B95.62 Methicillin resistant Staphylococcus aureus infection as the cause of diseases classified elsewhere; B95.2 Enterococcus as the cause of diseases classified elsewhere; Z79.84 Long term (current) use of oral hypoglycemic drugs; Z79.899 Other long term (current) drug therapy; Z96.0 Presence of urogenital implants
CPT/HCPCS: 36415; 71045; 80053; 81001; 83605; 85025; 85610; 87040; 87086; 87150; 87186; 93005; 94761; 96365; 96366; 96372; 96375; 99285; G0378

== ENCOUNTER 2023-12-24 00:12 | Emergency (ER) | payer MEDICARE, SELFPAY ==
[2023-12-24 00:14] VITALS: BP 138/80; PULSE 87; TEMP 36.8; O2SAT 92
--- NOTE | 2023-12-24 00:26 | PC.NURSE ---
Patient arrives with c-collar on. He is complaining mainly of back pain, he is unclear with complaints of other pains or locations. He states he is having pain in his right arm, then left arm, he is having phantom pains in his feet, he states one moment that he does not normally have any back pain, then says he has back pain all the time. The nurse that called report from the [facility] said he is a/o to his typical mentation, but was not clear as to what that really meant. Patient is on hospice and is a DNR-CC
--- NOTE | 2023-12-24 00:50 | CT_ITS ---
The [address] [address] Patient Name: SHABBIR MARIO MRN: [id number] date: 1945 Sex: M Assigned Patient Location: ER Current Patient Location: ER Accession/Order Number: [id number] Exam Date: 12/24/2023 01:27 Report Date: 12/24/2023 01:51 At the request of: ANIKA CURTIS Procedure: CT head/brain wo con CT OF THE BRAIN WITHOUT CONTRAST: 12/24/2023 1:27 AM EDT HISTORY: Injury. Headache. TECHNIQUE: Contiguous axially collimated images were obtained through the intracranial compartment, from the vertex through the foramen magnum. Coronal and Sagittal reformatted images were prepared on a separate workstation and reviewed on the PACS for anatomic correlation. No contrast was administered. This CT exam was performed using one or more of the following dose reduction techniques: Automated exposure control, adjustment of the mA and/or kV according to patient size, or use of iterative reconstruction technique. Thin section coronal and sagittal images were reconstructed from the axial data set. All images were reviewed and interpreted. COMPARISON: None. FINDINGS: There is no intracranial hemorrhage or abnormal extra-axial fluid collection. To the extent of evaluated with noncontrast technique, there is no mass lesion appreciated. There is no mass-effect or shift of midline structures. There is global brain volume loss with prominence of the ventricles and CSF spaces. There is no evidence of hydrocephalus. There is no effacement of the basal cisterns. No evidence of acute ischemia. Patchy white matter low attenuation is nonspecific, but likely related to chronic small vessel ischemic change. There is no evidence of a lacunar infarct. The posterior fossa, brain stem, and fourth ventricle are normal. There is no tonsillar ectopy. The calvarium is intact, without destructive lesion or depressed fracture. Atherosclerotic calcific plaque in the distal ICA and vertebral arteries at skull base. The mastoid air cells are well-aerated. Mild mucosal thickening of bilateral maxillary sinuses and ethmoid air cells. Trace fluid left maxillary sinus. 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 The right sinus is clear. No other air-fluid levels. CT/CT head/brain wo con IMPRESSION: 1. Changes of chronic small vessel ischemia in the periventricular white matter with secondary bilateral cerebral cortical atrophy. 2. No acute intracranial pathology. 3. Mild chronic sinus inflammation with what may be some minimal acute on chronic left maxillary sinus disease. 4. Extensive atherosclerotic calcific plaque within the skull base involving distal ICA vessels and distal vertebral arteries. Electronically authenticated by: ALISON TESFAYE Date: 12/24/2023 01:51
--- NOTE | 2023-12-24 00:50 | CT_ITS ---
[address] [address] Patient Name: SHABBIR MARIO MRN: [facility]:[id number] date: 1945 Sex: M Assigned Patient Location: ER Current Patient Location: Accession/Order Number: [id number] Exam Date: 12/24/2023 01:27 Report Date: 12/24/2023 02:46 At the request of: ANIKA RIVAS Procedure: CT cervical spine wo con EXAMINATION: CT Cervical Spine without IV Contrast TECHNIQUE: Standard protocol axial Cervical spine CT was performed without intravenous contrast. Multiplanar reformatted images were created according to the routine protocol. QPP DOCUMENTATION: At least one of the following dose reduction techniques was utilized: Iterative reconstruction, and/or Automatic Exposure Control, and/or mA/kV adjustment based on body size. INDICATION: . fall COMPARISON: None FINDINGS: Segmentation: There are 7 cervical vertebrae. Alignment: Minimal retrolisthesis of C3 on C4 and anterolisthesis of C7 on T1. Vertebrae: There are minimally displaced fractures involving the distal C3 and C4 spinous processes. There are multiple sclerotic lesions scattered throughout the cervical spine, visualized upper thoracic spine, visualized ribs, skull base, and mandibular condyles. 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 Intervertebral Discs: Moderate to advanced degenerative disc disease at C3-C4. Mild degenerative disc disease at C5-C6 and C6-C7. There are anterior and lateral endplate osteophytes at multiple levels. C2-C3: No spinal canal stenosis. Neural foramina are patent. C3-C4: Minimal retrolisthesis of C3 on C4. Small posterior disc osteophyte complex. Bilateral facet arthropathy. Moderate spinal canal narrowing. Mild foraminal narrowing. C4-C5: No spinal canal stenosis. Mild facet arthropathy. There is also mild uncovertebral arthropathy on the left. Neural foramina are patent. C5-C6: Small posterior disc osteophyte complex. No spinal canal stenosis. Mild uncovertebral facet joint arthropathy on the left. This results in moderate narrowing left neural foramen. Right neural foramen is patent. C6-C7: Small posterior disc osteophyte complex. Bilateral facet arthropathy. Mild spinal canal narrowing. Moderate foraminal narrowing. C7-T1: Minimal anterolisthesis of C7 on T1. No spinal canal stenosis. Bilateral facet arthropathy. Mild foraminal narrowing. Paraspinal Tissues: Unremarkable. Additional Findings: None. CT/CT cervical spine wo con IMPRESSION: 1. There are minimally displaced fractures involving the distal C3 and C4 spinous processes. 2. There are numerous sclerotic lesions scattered throughout the cervical spine, visualized upper thoracic spine, visualized ribs, skull base, and mandibular condyles. These have the appearance of blastic metastases. Correlation with history of neoplasm recommended. 3. Multilevel degenerative changes, as described above. Critical results were called by Pardeep Austin MD to Dr. Rivas on 12/24/2023 2:43 AM EDT. Electronically authenticated by: PARDEEP AUSTNI Date: 12/24/2023 02:46
--- NOTE | 2023-12-24 00:50 | XR_ITS ---
The [address] [address] Patient Name: SHABBIR MARIO MRN: [id number] date: 1945 Sex: M Assigned Patient Location: ER Current Patient Location: ER Accession/Order Number: [id number] Exam Date: 12/24/2023 01:38 Report Date: 12/24/2023 03:06 At the request of: ANIKA CURTIS Procedure: XR elbow RT 2V EXAM: XR elbow RT 2V HISTORY: injury COMPARISON: None. TECHNIQUE: 2 view right elbow. FINDINGS: No acute fracture, subluxation or dislocation. Joints are maintained. Surgical clips along the distal ulnar/medial aspect of distal humerus along the distal volar medial aspect. On lateral view there is large dystrophic ossification along the course of the distal triceps tendon. Likely from old injury and trauma. This extends approximately 3.5 cm craniocaudal and AP 0.8 cm. There is some chronic thickening of the distal triceps tendon. XR/XR elbow RT 2V IMPRESSION: 1. No acute bone or joint findings. 2. Chronic ossification along the course of distal triceps tendon with tendon thickening likely from previous trauma. Electronically authenticated by: ALISON TESFAYE Date: 12/24/2023 03:06
--- NOTE | 2023-12-24 00:51 | ED_ITS ---
HPI HPI - Fall General Chief Complaint: Fall Stated Complaint: fall Time Seen by Provider: 12/24/23 00:46 Source: other Source comment: EMS Mode of arrival: ambulance Limitations: physical limitation History of Present Illness HPI Narrative: bilat lower extremity AKA [facility] patient presents after falling out of bed. States he is ok but complains of right elbow pain. Believes he may have struck his head. no headache or dizziness or nausea Related Data Home Medications ?Medication ?Instructions ?Recorded ?Confirmed acetaminophen 325 mg capsule 325 mg PO Q6H PRN pain 10/03/23 10/03/23 aspirin 81 mg tablet,delayed 81 mg PO DAILY 10/03/23 10/03/23 release atorvastatin 40 mg tablet 40 mg PO DAILY 10/03/23 10/03/23 baclofen 10 mg tablet 10 mg PO BID 10/03/23 10/03/23 clopidogrel 75 mg tablet 75 mg PO DAILY 10/03/23 10/03/23 docusate sodium 100 mg capsule 100 mg PO DAILY 10/03/23 10/03/23 (Colace) duloxetine 30 mg capsule,delayed 30 mg PO DAILY 10/03/23 10/03/23 release hydroxyzine HCl 50 mg tablet 50 mg PO BID 10/03/23 10/03/23 levothyroxine 50 mcg capsule 50 mcg PO DAILY 10/03/23 10/03/23 lisinopril 20 mg tablet 20 mg PO DAILY 10/03/23 10/03/23 loratadine 10 mg tablet (Claritin) 10 mg PO DAILY 10/03/23 10/03/23 metformin 500 mg tablet 500 mg PO DAILY 10/03/23 10/03/23 oxycodone 5 mg capsule 5 mg PO Q8H PRN pain 10/03/23 10/03/23 polyethylene glycol 3350 17 17 g PO DAILY 10/03/23 10/03/23 gram/dose oral powder (Miralax) pregabalin 150 mg capsule 150 mg PO DAILY 10/03/23 10/03/23 tamsulosin 0.4 mg capsule 0.4 mg PO DAILY 10/03/23 10/03/23 Previous Rx's ?Medication ?Instructions ?Recorded cefuroxime axetil 250 mg tablet 250 mg PO BID 7 days #14 tabs 10/04/23 Allergies Allergy/AdvReac Type Severity Reaction Status Date / Time Beta-Blockers Allergy Severe Verified 04/09/23 12:17 (Beta-Adrenergic Bloc iv dye contrast Allergy Severe Uncoded 04/09/23 12:17 Opioid HPI Opioid Management Most Recent Pain and Opioid Data: Last Pain Scale 10 12/24/23 04:33 Last MAR Pain Assessment 12/24/23 04:33 Last ORT Total Score 0 10/03/23 23:31 Last ORT Risk Category Low Risk 10/03/23 23:31 Review of Systems ROS Status of ROS 10 or more systems reviewed and unremark able except as noted in history and below [facility] Medical History (Updated 12/24/23 @ 03:15 by Randolph Rivas MD) Urinary tract infection ?N39.0 - Urinary tract infection, site not specified (ICD-10) Altered mental status ?R41.82 - Altered mental status, unspecified (ICD-10) HLD (hyperlipidemia) ?E78.5 - Hyperlipidemia, unspecified (ICD-10) Aneurysm of artery of lower extremity ?I72.4 - Aneurysm of artery of lower extremity (ICD-10) Acute kidney failure ?N17.9 - Acute kidney failure, unspecified (ICD-10) Essential (primary) hypertension ?I10 - Essential (primary) hypertension (ICD-10) Benign prostatic hyperplasia ?N40.0 - Benign prostatic hyperplasia without lower urinary tract symptoms (ICD-10) Falls ?W19.XXXA - Unspecified fall, initial encounter (ICD-10) Dementia ?F03.90 - Unspecified dementia, unspecified severity, without behavioral d isturbance, psychotic disturbance, mood disturbance, and anxiety (ICD-10) Depression ?F32.A - Depression, unspecified (ICD-10) Phantom limb (syndrome) ?G54.7 - Phantom limb syndrome without pain (ICD-10) Type 2 diabetes mellitus ?E11.9 - Type 2 diabetes mellitus without complications (ICD-10) Social History Smoking status: Never smoker Exam Constitutional Vital Signs, click to edit/add: Last Vital Signs Temp 98.3 F 12/24/23 00:14 Pulse 87 12/24/23 00:14 Resp 18 12/24/23 00:14 BP 138/80 12/24/23 00:14 Pulse Ox 92 L 12/24/23 00:14 O2 Del Method Room Air 12/24/23 00:14 Common normals: no apparent distress, alert and well nourished [facility] Common normals: normocephalic and head/scalp atraumatic Eye Common normals: EOMs intact bilaterally Neck & C-Spine Other: patient is in a hard collar Respiratory Common normals: normal respiratory effort, no retractions and no use of accessory muscles Cardio Common normals: regular rate, regular rhythm, S1 normal heart sound and S2 normal heart sound GI Common normals: Normal to inspection, nondistended, normoactive bowel sounds present, soft to palpation and non-tender Extremity Other: bilat above knee amputee Neuro Common normals: CN's II-XII intact bilaterally and no focal motor deficits Course Vital Signs Vital signs: Vital Signs Temperature 98.3 F 12/24/23 00:14 Pulse Rate 87 12/24/23 00:14 Respiratory Rate 18 12/24/23 00:14 Blood Pressure 138/80 12/24/23 00:14 Pulse Oximetry 92 L 12/24/23 00:14 Oxygen Delivery Method Room Air 12/24/23 00:14 Temperature 98.3 F 12/24/23 00:14 Pulse Rate 87 12/24/23 00:14 Respiratory Rate 18 12/24/23 00:14 Blood Pressure 138/80 12/24/23 00:14 Pulse Oximetry 92 L 12/24/23 00:14 Oxygen Delivery Method Room Air 12/24/23 00:14 MDM - Fall MDM Narrative Medical decision making narrative: patient fell out of bed at [facility]. Patient is bilat Above knee amputee. He is DNRCC. He is not aware of what happen. only complaint is left arm pain CT with minimally displaced spinous process fracture of C3 and C4. xray elbow without fracture. findings on CT of numerous sclerotic lesions suggesting metastatic disease. We are not knowledgeable that he has CA. He is hospice patient and is DNRCC Patient discharged back to [facility] Imaging Data Chest x-ray: Radiologist's impression: ITS Impressions Cervical Spine CT 12/24/23 00:50 IMPRESSION: 1. There are minimally displaced fractures involving the distal C3 and C4 spinous processes. 2. There are numerous sclerotic lesions scattered throughout the cervical spine, visualized upper thoracic spine, visualized ribs, skull base, and mandibular condyles. These have the appearance of blastic metastases. Correlation with history of neoplasm recommended. 3. Multilevel degenerative changes, as described above. Critical results were called by Pardeep Austin MD to Dr. Rivas on 12/24/2023 2:43 AM EDT. Electronically authenticated by: PARDEEP AUSTIN Date: 12/24/2023 02:46 Elbow X-Ray 12/24/23 00:50 IMPRESSION: 1. No acute bone or joint findings. 2. Chronic ossification along the course of distal triceps tendon with tendon thickening likely from previous trauma. Electronically authenticated by: ALISON TESFAYE Date: 12/24/2023 03:[address] 12/24/23 00:50 IMPRESSION: 1. Changes of chronic small vessel ischemia in the periventricular white matter with secondary bilateral cerebral cortical atrophy. 2. No acute intracranial pathology. 3. Mild chronic sinus inflammation with what may be some minimal acute on chronic left maxillary sinus disease. 4. Extensive atherosclerotic calcific plaque within the skull base involving distal ICA vessels and distal vertebral arteries. Electronically authenticated by: ALISON TESFAYE Date: 12/24/2023 01:51 ADDENDUM: 12/24/23 0244 IMPRESSION: 1. Changes of chronic small vessel ischemia in the periventricular white matter with secondary bilateral cerebral cortical atrophy. 2. No acute intracranial pathology. 3. Mild chronic sinus inflammation with what may be some minimal acute on chronic left maxillary sinus disease. 4. Extensive atherosclerotic calcific plaque within the skull base involving distal ICA vessels and distal vertebral arteries. Electronically authenticated by: ALISON TESFAYE Date: 12/24/2023 02:41 Discharge Plan Discharge Stand Alone Forms: Work/School Release, Portal Instructions Chief Complaint: Fall Clinical Impression: Fracture of cervical spinous process Patient Disposition: Home, Self-Care Prescriptions / Home Meds: No Action acetaminophen 325 mg capsule 325 mg PO Q6H PRN (Reason: pain) aspirin 81 mg tablet,delayed release (DR/EC) 81 mg PO DAILY atorvastatin 40 mg tablet 40 mg PO DAILY baclofen 10 mg tablet 10 mg PO BID loratadine [Claritin] 10 mg tablet 10 mg PO DAILY clopidogrel 75 mg tablet 75 mg PO DAILY docusate sodium [Colace] 100 mg capsule 100 mg PO DAILY duloxetine 30 mg capsule,delayed release(DR/EC) 30 mg PO DAILY hydroxyzine HCl 50 mg tablet 50 mg PO BID levothyroxine 50 mcg capsule 50 mcg PO DAILY lisinopril 20 mg tablet 20 mg PO DAILY metformin 500 mg tablet 500 mg PO DAILY oxycodone 5 mg capsule 5 mg PO Q8H PRN (Reason: pain) polyethylene glycol 3350 [Miralax] 17 gram/dose powder 17 g PO DAILY pregabalin 150 mg capsule 150 mg PO DAILY tamsulosin 0.4 mg capsule 0.4 mg PO DAILY cefuroxime axetil 250 mg tablet 250 mg PO BID 7 Days Qty: 14 0RF Print Language: Taiwanese Instructions: Spinous Process Fracture (ED) Referrals: Carmelita Zavala NP [Primary Care Provider] - 1 week Discharge Date/Time: 12/24/23 07:03
--- OUTSIDE RECORDS SUMMARY | 2023-12-24 00:58 | XMS_ITS | CCD ---
Author Organization [facility] Care Team Providers Care Primary Care Nurse Name Role Phone CARMELITA ZAVALA Primary Care Physician LINDA WORKMAN Attending Unavailable ANABELA, EHAD Referring Unavailable AICHHOLZ, A P MECHANIC CARMELITA Primary Care Unavailable ISSA ., DR HOWARD Admitting Unavailable ISSA ., DR HOWARD Attending Unavailable OLIVIAY ., DR HOWARD Consulting Unavailable ANIKA CURTIS Consulting Unavailable ALKA MORENO Consulting Unavailable CARMEN MURDOCK Consulting Unavailable JULEE DUONG Consulting Unavailable AICHHOLZ, A P MECHANIC CARMELITA Admitting Unavailable AICHHOLZ, A P MECHANIC CARMELITA Attending Unavailable AICHHOLZ, A P MECHANIC CARMELITA Primary Care Unavailable AICHHOLZ, A P MECHANIC CARMELITA Consulting Unavailable AICHHOLZ, A P MECHANIC CARMELITA Admitting Unavailable AICHHOLZ, A P MECHANIC CARMELITA Attending Unavailable AICHHOLZ, A P MECHANIC CARMELITA Primary Care Unavailable AICHHOLZ, A P MECHANIC CARMELITA Consulting Unavailable AICHHOLZ, A P MECHANIC CARMELITA Admitting Unavailable AICHHOLZ, A P MECHANIC CARMELITA Attending Unavailable AICHHOLZ, A P MECHANIC CARMELITA Primary Care Unavailable AICHHOLZ, A P MECHANIC CARMELITA Consulting Unavailable WILLIAMS Arboleda, DR MADY Liao Admitting Unavaila asim Arboleda, DR MADY Liao Attending Unavaila ble AICHHOLZ, A P MECHANIC CARMELITA Primary Care Unavailable Deandre Min Consulting Unavailable WILLIAMS Arboleda, DR MADY Liao Consulting Unavaila ble AICHHOLZ, A P MECHANIC CARMELITA Admitting Unavailable AICHHOLZ, A P MECHANIC CARMELITA Attending Unavailable AICHHOLZ, A P MECHANIC CARMELITA Primary Care Unavailable DR CAROLINE BLOUNT V Consulting Unavailable AICHHOLZ, A P MECHANIC CARMELITA Consulting Unavailable AICHHOLZ, A P MECHANIC CARMELITA Admitting Unavailable AICHHOLZ, A P MECHANIC CARMELITA Attending Unavailable AICHHOLZ, A P MECHANIC CARMELITA Primary Care Unavailable AICHHOLZ, A P MECHANIC CARMELITA Consulting Unavailable MD Sancho Lee Attending Provider Carmelita Zavala Primary Care Provider Linda Rodriguez Unavailable [phone] Carmelita Zavala Primary Care Provider MD Sancho Lee Attending Provider MD Linda Rodriguez Attending Provider [phone] Carmelita Zavala Primary Care Provider MD Sancho Lee Attending Provider MD Linda Rodriguez Attending Provider Glo Singleton Unavailable MD Glo Singleton Attending Provider MD Glo Singleton Referring Provider Cherry [facility] Mary Miller Emergency Provider MD Linda Rodriguez Admit Provider Addie Hunt Unavailable Lucas CONTACT LENS EDGE BUFFER, Carmelita Unavailable Bruno Rizzo MD Primary Care Provider Carmelita Zavala Primary Care Provider MD Linda Rodriguez Attending Provider Sancho LEE R Attending Unavailable LEE, Sancho R Attending Unavailable LEE, Sancho R Attending Unavailable LEE, Sancho R Attending Unavailable LEE, Sancho R Admitting Unavailable LEE, Sancho R Attending Unavailable LEE, Sancho R Attending Unavailable JESUS, Sancho R Attending Unavailable JESUS, Sancho R Attending Unavailable Carmelita Zavala Primary Care Provider MD Linda Rodriguez Attending Provider Carmelita Zavala Primary Care Provider DO Linda Luo Emergency Provider Unavai Linda Zacarias Admitting Unavailable Linda Luo Attending Unavailable Carmelita Zavala Primary Care Unavailable Linda Rodriguez Admitting Unavailabl e Aichneli, Carmelita Arita Primary Care Unavailable Michael, Linda Roque Attending Unavailabl e Bullimore, Mary E Admitting Unavailable Bullimore, Mary E Attending Unavailable Carmelita Zavala Primary Care Unavailable Lee, Sancho Admitting Unavailable Lee, Sancho Attending Unavailable Josehneli, Carmelita J Primary Care Unavailable Langcynthia, Linda Roque Admitting Unavailabl e Aichholaubrey, Carmelita J Primary Care Unavailable Langcynthia, Linda Roque Attending Unavailabl e Langenberg, Linda Roque Attending Unavailabl e Aichholaubrey, Carmelita J Primary Care Unavailable Langenberg, Linda T Admitting Unavailabl e Aichholz, Carmelita J Primary Care Unavailable Langenberg, Linda Roque Admitting Unavailabl e Langcynthia, Linda Roque Attending Unavailabl e Mani, Glo Admitting Unavailable Mani, Glo Attending Unavailable Mani, Glo Referring Unavailable Josehneli, Carmelita Arita Primary Care Unavailable Michael, Linda Roque Admitting Unavailabl e Aichholz, Carmelita Arita Primary Care Unavailable Langenberg, Linda Roque Attending Unavailabl e Allergies Allergy Classification Reported Allergen(s) Allergy Type Date of Onset Reaction(s) Facility Adrenergic Antagonists (1 source) Adrenergic Beta-Antagonist s Drug Allergy 3 [facility] Repository (4 sources) Adrenergic Beta-Antagonist s; Translations: [beta blockers] Drug allergy Asthenia (finding), Vomiting (disorder), Dizziness (finding) [facility] (1 source) ALLERGIES NOT ON FILE; Translations: [ALLERGIES NOT ON FILE] Propensity to adverse reactions (disorder) [facility] Repository (1 source) Adrenergic Beta-Antagonist s Drug allergy (disorder) 4 [facility] Repository (10 sources) Beta-Blockers (Beta-Adrenergi c Bloc Allergy to substance 3 Headache [facility] (15 sources) Adrenergic Beta-Antagonist s Propensity to adverse reactions 4 vomiting [facility] (10 sources) Iodinated Contrast Media; Translations: [Iodinated Contrast Media] Allergy to substance 3 Difficulty Swallowing [facility] (9 sources) Contrast Allergy PreMed Pack Drug allergy Unknown [facility] Other (3 sources) beta-Blocking agent Propensity to adverse reactions 3 [facility] Medications Current Medications Medication Drug Class(es) Dates Sig (Normalized) Sig (Original) acetaminophen 325 mg oral capsule (4 sources) Start: 06-16-2023 take 650 mg by mouth every four hours Acetaminophen Active 650 MG PO Q4H June 16, 2023 1:00am acetaminophen 325 mg / oxyCODONE hydrochloride 5 [...] Date: 04/18/21 Status: Ordered aspirin 81 mg chewable tablet (20 sources) Platelet Aggregation Inhibitor, Nonsteroidal Anti-inflammatory Drug Start: 04-18-2021 take 1 tablet by mouth once daily aspirin 81 mg Oral EC Tab 81 mg = 1 tab(s), Oral, Daily, Blood Thinner Start Date: 04/18/21 Status: Ordered Start: 11-26-2018 End: 04-13-2023 take 81 mg by mouth once daily Aspirin Discontinued 81 MG PO Daily 0 November 27, 2018 1:50pm April 13, 2023 1:39pm atorvastatin 40 mg oral tablet (20 sources) HMG-CoA Reductase Inhibitor Start: 11-27-2018 take 1 tablet by mouth once daily at bedtime Atorvastatin (Lipitor) 40 mg tablet Active 40 MG PO Daily at bedtime November 27, 2018 12:00am Start: 01-28-2011 take 1 tablet by david th once daily Lipitor 10 mg Tab 10 mg = 1 tab(s), Oral, Daily, Refills(s) 0, High cholesterol Start Date: 01/28/11 Status: Ordered baclofen 10 mg oral tablet (1 source) gamma-Aminobutyric Acid-ergic Agonist Start: 10-19-2023 take 10 mg by mouth twice daily Baclofen Active 10 MG PO Twice daily October 19, 2023 12:00am cholecalciferol 0.05 mg oral tablet (3 sources) Vitamin D take 1 tablet by mouth in the morning cholecalciferol (Vitamin D-3) 50 MCG (1999 UT) tablet Take 2,000 Units by mouth in the morning. 0 Active clopidogrel 75 mg oral tablet (20 sources) P2Y12 Platelet Inhibitor Start: 11-27-2018 End: 04-13-2023 take 75 mg by mouth once daily at bedtime Clopidogrel Active 75 MG PO Daily at bedtime April 13, 2023 1:35pm docusate sodium 100 mg oral capsule (5 sources) Start: 04-23-2023 take 100 mg by mouth twice daily Docusate Sodium Active 100 MG PO Twice daily 14 April 23, 2023 1:00am doxycycline hyclate 100 mg oral capsule (1 source) Tetracycline-class Drug Start: 03-13-2023 take 1 capsule by mouth twice daily doxycycline hyclate 100 mg Cap 100 mg = 1 cap(s), Oral, BID, # 42 cap(s), Refills(s) 0, [facility]acy: [id number], 177.8, cm, 04/18/21 10:33:00 EST, Height/Length Dosing, 84.4, kg, 11/21/22 9:52:00 EDT, Weight Dosing Start Date: 03/13/23 Status: Ordered DULoxetine 30 mg delayed release oral capsule (20 sources) Serotonin and Norepinephrine Reuptake Inhibitor Start: 09-22-2022 take 30 mg by mouth once daily at bedtime Duloxetine Active 30 MG PO Daily at bedtime April 13, 2023 1:00am hydrOXYzine hydrochloride 50 mg oral tablet (4 sources) Antihistamine Start: 06-16-2023 take 50 mg by mouth twice daily Hydroxyzine Hcl Active 50 MG PO Twice daily June 16, 2023 1:00am hyoscyamine sulfate 0.125 mg oral tablet (1 source) Start: 04-18-2021 take 1 tablet by mouth four times daily Levsin 0.125 mg SL Tab 0.125 mg = 1 tab(s), Oral, QID, # 20 tab(s), Refills(s) 0, [facility]: [id number] [facility], 177.8, cm, 04/18/21 10:33:00 EST, Height/Length Dosing, 84.4, kg, 04/18/21 10:33:00 EST, Weight Dosing Start Date: 04/18/21 Status: Ordered ibuprofen 200 mg oral capsule (20 sources) Nonsteroidal Anti-inflammatory Drug Start: 04-18-2021 take 1 capsule by mouth every six hours as needed for pain ibuprofen 200 mg oral capsule 200 mg = 1 cap(s), Oral, q6hr, PRN as needed for pain Start Date: 04/18/21 Status: Ordered Start: 02-06-2020 End: 04-13-2023 take 800 mg by mouth every eight hours Ibuprofen Discontinued 800 MG PO Q8H February 06, 2020 12:00am April 13, 2023 1:36pm levothyroxine sodium 0.05 mg oral tablet (20 sources) l-Thyroxine Start: 04-13-2023 take 25 ug by mouth once daily at bedtime Levothyroxine Active 25 MCG PO Daily at bedtime April 13, 2023 1:00am Start: 02-09-2020 End: 04-13-2023 take 13 ug by mouth once daily Levothyroxine Discontin ued 13 MCG PO Daily February 09, 2020 2:07pm April 13, 2023 1:55pm Start: 12-30-2018 take 1 tablet by david th once daily levothyroxine 50 mcg (0.05 mg) Tab 50 microgram = 1 tab(s), Oral, Daily, Refills(s) 0, Thyroid Start Date: 12/30/18 Status: Ordered Start: 12-01-2018 End: 02-09-2020 take 50 ug by mouth once daily Levothyroxine Discontin ued 50 MCG PO Daily December 01, 2018 12:00am February 09, 2020 2:07pm Start: 11-26-2018 End: 12-02-2018 take 75 ug by mouth once daily Levothyroxine Discontin ued 75 MCG PO Daily November 26, 2018 12:00am December 02, 2018 12:33pm take 1 tablet by david th once [...] PO Daily at bedtime April 13, 2023 1:00am Start: 03-21-2021 take 1 tablet by david th once daily lisinopril 5 mg Tab 5 mg = 1 tab(s), Oral, Daily, Refills(s) 0, High blood pressure Start Date: 03/21/21 Status: Ordered Start: 02-09-2020 End: 04-13-2023 take 5 mg by mouth once daily Lisinopril Discontinued 5 MG PO Daily February 09, 2020 2:09pm April 13, 2023 1:35pm Start: 11-27-2018 End: 02-09-2020 take 2.5 mg by mouth once daily Lisinopril Discontinue d 2.5 MG PO Daily November 27, 2018 12:00am February 09, 2020 2:09pm loratadine 10 mg oral tablet (1 source) Start: 10-19-2023 take 1 tablet by mouth once daily Loratadine (Claritin) 10 mg tablet Active 10 MG PO Daily October 19, 2023 12:00am memantine hydrochloride 10 mg oral tablet (1 source) W-muviwj-E-aspart ate Receptor Antagonist Start: 03-21-2021 take 1 tablet by mouth twice daily memantine 10 mg Tab 10 mg = 1 tab(s), Oral, BID, Refills(s) 0, Other (see comment) Start Date: 03/21/21 Status: Ordered metFORMIN hydrochloride 500 mg oral tablet (11 sources) Biguanide Start: 09-22-2022 take 500 mg by mouth once daily at bedtime Metformin Active 500 MG PO Daily at bedtime April 13, 2023 1:00am take 1 tablet by david th at mealtime, then take 1 tablet by mouth every twenty-four hours metFORMIN, OSM, (Fortamet) 500 MG 24 hr tablet Take 500 mg by mouth in the evening. Take with meals Do not crush, chew, or split. 0 Active ondansetron 4 mg disintegrating oral tablet (1 source) Serotonin-3 Receptor Antagonist Start: 10-19-2023 take 4 mg by mouth four times daily Ondansetron Active 4 MG PO Four times daily October 19, 2023 12:00am oxyCODONE hydrochloride 5 mg oral tablet (5 sources) Opioid Agonist Start: 04-23-2023 take 5 mg by mouth every eight hours Oxycodone Active 5 MG PO Every 8 hours 14 5 April 23, 2023 Polyethylene Glycols (4 sources) Start: 06-16-2023 Polyethylene Glycol Active 1 EACH MISCELLANE Daily June 16, 2023 1:00am Start: 06-16-2023 Polyethylene G lycol Active 1 EACH MISCELLANE Daily June 16, 2023 12:00am pregabalin 150 mg oral capsule (20 sources) Start: 04-13-2023 take 150 mg by mouth once daily at bedtime Pregabalin Active 150 MG PO Daily at bedtime April 13, 2023 1:00am Start: 03-21-2021 take 1 mg by mouth [...] c Joseph Start: 12-02-2018 End: 04-13-2023 take 0.4 mg by mouth once daily at bedtime Tamsulosin Active 0.4 MG PO Daily at bedtime April 13, 2023 1:35pm take 1 capsule by mo ut every twenty-four hours in the morning tamsulosin (Flomax) 0.4 MG 24 hr capsule Take 0.4 mg by mouth in the morning and 0.4 mg before bedtime. 0 Active Completed/Discontinued Medications Medication Drug Class(es) Dates Sig (Normalized) Sig (Original) cefdinir 300 mg oral capsule (10 sources) Cephalosporin Antibacterial Start: 12-02-2018 End: 12-05-2018 take 300 mg by mouth every twelve hours Cefdinir Discontinued 300 MG PO Q12H 14 December 02, 2018 12:00am December 05, 2018 1:53pm gabapentin 600 mg oral tablet (20 sources) Anti-epileptic Agent Start: 11-26-2018 End: 04-13-2023 take 1200 mg by mouth twice daily Gabapentin Discontinued 1200 MG PO Twice daily 60 December 05, 2018 3:53pm April 13, 2023 1:36pm take 3 capsules by m out three times daily as needed Gabapentin 600 MG 3 capsule Orally Three times a day, prn Not-Taking/PRN magnesium oxide 400 mg oral tablet (10 sources) Start: 02-09-2020 End: 04-13-2023 take 400 mg by mouth twice daily Magnesium Oxide Discontinued 400 MG PO Twice daily 60 February 09, 2020 12:00am April 13, 2023 1:36pm potassium chloride 10 meq extended release oral tablet (20 sources) Start: 04-13-2023 End: 06-16-2023 take 10 mEq by mouth once daily at bedtime Potassium Chloride Discontinued 10 MEQ PO Daily at bedtime April 13, 2023 1:00am June 16, 2023 10:42am Start: 09-22-2022 Potassium Chlo ride (Nxu-Kdeo-Yvd 10) 10 mEq oral tablet, extended release Refills(s) 0 Start Date: 09/22/22 Status: Ordered Start: 11-26-2018 End: 12-02-2018 take 20 mEq by mouth once daily Potassium Chloride Discontinued 20 MEQ PO Daily November 26, 2018 12:00am December 02, 2018 12:33pm take 1 tablet by david th every twelve hours Potassium Chloride ER 10 MEQ 1 tablet with food Orally Twice a day Active potassium chlori de CR (Klor-Con M10) 10 MEQ ER tablet Take 10 mEq by mouth in the morning. Do not crush or chew.. 0 Active vitamin b12 1 mg oral capsule (20 sources) Vitamin B12 Start: 02-09-2020 End: 04-13-2023 take 1000 ug by mouth once daily Cyanocobalamin (Vitamin B-12) Discontinued 1000 MCG PO Daily 30 February 09, 2020 12:00am April 13, 2023 1:36pm Start: 11-26-2018 End: 11-29-2018 inject 1000 ug by intramuscular injection every month Cyanocobalamin (Vitamin B-12) Discontinued 1000 MCG IM every month November 26, 2018 12:00am November 29, 2018 10:14pm take 1 tablet by mouth once dory y Cyanocobalamin 1000 MCG 1 tablet Orally Once a day Active Problems Active Problems Problem Classification Problem Date Documented Da te Episodic/Chronic Acute cerebrovascular disease (13 sources) Cerebrovascular accident; Translations: [Cerebral infarction, unspecified] Onset: 05-04-1997 07-15-2013 Chronic Aortic; peripheral; and visceral artery aneurysms (20 sources) Aneurysm; 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 Calculus of urinary tract (7 sources) Ureteric stone; Translations: [Calculus of ureter] Onset: 10-29-2021 Episodic Cardiac dysrhythmias (10 sources) Paroxysmal atrial fibrillation; Translations: [Paroxysmal atrial fibrillation] 02-08-2020 Chronic Chronic obstructive pulmonary disease and bronchiectasis (10 sources) Bronchitis; Translations: [Bronchitis, not specified as acute or chronic] 02-06-2020 Episodic Complications of surgical procedures or medical care (6 sources) Other complications of procedures, not elsewhere classified, sequela; Translations: [Disruption of wound, unspecified, initial encounter] Episodic Congestive heart failure; nonhypertensive (10 sources) Chronic diastolic heart failure; Translations: [Chronic diastolic (congestive) heart failure] 11-27-2018 Chronic Coronary atherosclerosis and other heart disease (1 source) Atherosclerotic heart disease of [place] coronary artery without angina pectoris; Translations: [ASHD [place] W/O ANGINA PECTORIS] Onset: 01-17-2022 Chronic Diabetes mellitus without complication (11 sources) Prediabetes; Translations: [Prediabetes] Onset: 12-26-2021 11-27-2018 Episodic Disorders of lipid metabolism (14 sources) Hypercholesterolemia; Translations: [Pure hypercholesterolemia, unspecified] Onset: 01-17-2022 04-17-2021 Chronic E Codes: Fall (1 source) Fall; Translations: [Unspecified fall, initial encounter] 10-19-2023 Episodic Essential hypertension (20 sources) Hypertensive disorder; Translations: [Essential (primary) hypertension] Onset: 01-17-2022 01-28-2011 Chronic Fluid and electrolyte disorders (11 sources) Hypokalemia; Translations: [Hypokalemia] Onset: 10-10-2021 02-08-2020 [...] symptoms] Onset: 10-22-2021 Chronic Malaise and fatigue (20 sources) Other fatigue; Translations: [Asthenia] Onset: 09-13-2021 11-29-2018 Episodic Nutritional deficiencies (1 source) Vitamin D deficiency, unspecified; Translations: [VITAMIN D DEFICIENCY UNSPECIFIED] Onset: 12-26-2021 Chronic Open wounds of extremities (11 sources) Amputated left lower limb above knee; Translations: [Complete traumatic amputation at level between left hip and knee, initial encounter] 11-27-2018 Chronic Open wounds of extremities (11 sources) Amputated right lower limb above knee; [...] KNEE] Onset: 01-17-2022 Chronic Other circulatory disease (10 sources) History of cerebrovascular accident; Translations: [Personal history of transient ischemic attack (TIA), and cerebral infarction without residual deficits] 12-04-2018 Episodic Other eye disorders (9 sources) Bilateral posterior vitreous detachment; Translations: [Vitreous degeneration, bilateral] Chronic Other eye disorders (1 source) Vitreous degeneration, bilateral Chronic Other gastrointestinal disorders (10 sources) Dysphagia; Translations: [Dysphagia, unspecified] 11-30-2018 Episodic Other gastrointestinal disorders (10 sources) Constipation; Translations: [Constipation, unspecified] 12-01-2018 Episodic Other male genital disorders (1 source) History of prostatitis 04-17-2023 Episodic Other nervous system disorders (10 sources) Metabolic encephalopathy; Translations: [Metabolic encephalopathy] 02-07-2020 Chronic Other nervous system disorders (11 sources) Phantom pain following amputation of lower limb; 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] Chronic Other nervous system disorders (10 sources) Dysphasia; Translations: [Dysphasia] 11-30-2018 Episodic Other nervous system disorders (5 sources) Postoperative pain ; Translations: [Other acute postprocedural pain] 04-23-2023 Episodic Other nutritional; endocrine; and metabolic disorders (4 sources) Other disorders of bilirubin metabolism; Translations: [OTH DISORDERS BILIRUBIN METABOLISM] Onset: 12-24-2021 Chronic Other screening for suspected conditions (not mental disorders or infectious disease) (20 sources) Decreased thyroid stimulating hormone level; Translations: [...] amnesia] Onset: 07-21-2022 Episodic Residual codes; unclassified (10 sources) Confusional state; Translations: [Disorientation, unspecified] 02-06-2020 Episodic Residual codes; unclassified (10 sources) Altered mental status; Translations: [Altered mental status, unspecified] 02-06-2020 Episodic Sprains and strains (6 sources) Sprain of wrist; Translations: [Unspecified sprain of right wrist, initial encounter] 04-17-2023 Episodic Superficial injury; contusion (1 source) Abrasion of scalp; Translations: [Abrasion of scalp, initial encounter] 10-19-2023 Episodic Thyroid disorders (20 sources) Hypothyroidism, unspecified; Translations: [Hypothyroidism] Onset: 01-17-2022 [...] tract symptoms] Onset: 02-10-2023 Urinary tract infections (13 sources) Urinary tract infectious disease; Translations: [Urinary tract infection, site not specified] 04-17-2021 Episodic Past or Other Problems Problem Classification Problem Date Documented Date Episodic/Chronic Acute and unspecified renal failure (1 source) Acute kidney failure, unspecified; Translations: [ACUTE KIDNEY FAILURE UNSPECIFIED] Onset: 01-17-2022 Episodic Other aftercare (1 source) 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; Translations: [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 OF MECHANICAL 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 CURRENT USE OF ASPIRIN] Onset: 01-17-2022 Episodic Other aftercare (1 source) Other remote 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 (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) drug therapy; Translations: [OTH SHELTER CURRENT DRUG THERAPY] Onset: 01-17-2022 Episodic Other circulatory disease (1 source) Personal history of transient ischemic attack (TIA), and cerebral infarction without residual deficits; Translations: [PERS HX TIA AND CI NO RESID DEFICIT] Onset: 01-17-2022 Episodic Other endocrine disorders (1 source) Endocrine disorder, unspecified; Translations: [ENDOCRINE DISORDER UNSPECIFIED] Onset: 12-26-2021 Episodic Other nervous system disorders (1 source) Other acute postprocedural pain; Translations: [Other acute postprocedural pain] Onset: 04-20-2023 Episodic Spondylosis; intervertebral disc disorders; other back problems (1 source) Dorsalgia, unspecified; Translations: [DORSALGIA UNSPECIFIED] Onset: 12-26-2021 Episodic Syncope (4 sources) Syncope and collapse; Translations: [SYNCOPE AND COLLAPSE] Onset: 01-14-2022 Episodic Unclassified (1 source) Abdominal aortic aneurysm (AAA) without rupture, unspecified part I71.40 Results Test Name Value Interpretation Reference Range Facility Alanine aminotransferase [En zymatic activity/volume] in Serum or PlasmaOrdered By: Linda Omer on 10-19-2023 ALT [Catalytic activity/Vol] 10 U/L Normal 7-52 [facility] Comment on above: Performed By: #### C BC, CMP #### [address] Albumin [Mass/volume] in Ser um or Plasma by Bromocresol green (BCG) dye binding methoOrdered By: Linda Luo on 10-19-2023 Albumin BCG dye [Mass/Vol] 3.2 g/dL 3.5-5.7 [facility] Alkaline phosphatase [Enzyma tic activity/volume] in Serum or PlasmaOrdered By: Linda Luo on 10-19-2023 ALP [Catalytic activity/Vol] 609 U/L High 34-104 [facility] Comment on above: Performed By: #### C BC, CMP #### [address] Aspartate aminotransferase [ Enzymatic activity/volume] in Serum or PlasmaOrdered By: Linda Luo on 10-19-2023 AST [Catalytic activity/Vol] 14 U/L Normal 13-39 [facility] Comment on above: Performed By: #### C BC, CMP #### [address] Automated basophil %Ordered By: Linda Luo on 10-19-2023 Basophils/100 WBC (Bld) 1.5 % Normal . [facility] Comment on above: Performed By: #### C BC ####[facility] [place] [address] Automated basophil countOrde red By: Linda Luo on 10-19-2023 Basophils (Bld) [#/Vol] 0.1 10*3/uL Normal 0.0-0.2 [facility] Comment on above: Result Comment: PERF ORMED BY: [facility] [address] [id number] PATHOLOGIST TOOL DESIGN DRAFTSPERSON NOAH PINEDA M.D. Performed By: #### C BC ####[address] Automated blood monocyte cou ntOrdered By: Linda Luo on 10-19-2023 Monocytes (Bld) [#/Vol] 0.3 10*3/uL Normal 0.0-0.8 [facility] Comment on above: Performed By: #### C BC ####[address] Automated eosinophil %Ordere d By: Linda Luo on 10-19-2023 Eosinophils/100 WBC (Bld) 3.3 % Normal . [facility] Comment on above: Performed By: #### C BC ####[address] Automated eosinophil countOr dered By: Linda Luo on 10-19-2023 Eosinophils (Bld) [#/Vol] 0.2 10*3/uL Normal 0.0-0.45 [facility] Comment on above: Performed By: #### C BC ####[address] Automated monocyte %Ordered By: Linda Luo on 10-19-2023 Monocytes/100 WBC (Bld) 4.6 % Normal . [facility] Comment on above: Performed By: #### C BC ####[address] Automated neutrophil %Ordere d By: Linda Luo on 10-19-2023 Neutrophils/100 WBC (Bld) 74.0 % Normal . [facility] Comment on above: Performed By: #### C BC ####[address] Bilirubin.total [Mass/volume ] in Serum or PlasmaOrdered By: Linda Luo on 10-19-2023 Bilirubin [Mass/Vol] 0.5 mg/dL Normal 0.3-1.[address] [facility] Comment on above: Performed By: #### C , [facility] #### [facility] [address] cervical spine wo conon 0 10-19-2023 CT cervical spine wo con [facility] Main [address] [place] [address] CT Scan Report Signed Patient: Sebastian Diego MR#: [id number] : 1945 Acct:[id number] Age/Sex: 78 / M ADM Date: 10/18/23 Loc: ER Room: Type: [facility] ER Attending Dr: Copies to: Linda Luo DO Ordering Provider: Linda Luo DO Date of Service: 10/19/23 CT/CT head/brain wo con: r/o ich ([id number]) CT/CT cervical spine wo con: r/o fx CT BRAIN WITHOUT CONTRAST: CLINICAL HISTORY: Rolled out of bed. COMPARISON: CT brain 02/06/2020 TECHNIQUE: Contiguous axial unenhanced images were obtained through the brain. This CT exam was performed using one or more following dose reduction techniques: Automated exposure control, ad justment of the mA and/or kV according to patient size, or use of iterative reconstruction technique. FINDINGS: There is no evidence of midline shift, intra or extra-axial fluid collection, hemorrhage or CT evidence of stroke. Cortical atrophy with chronic microvascular ischemic changes Posterior fossa appears unremarkable. Visualized intraorbital contents appear unremarkable. Mild left maxillary sinus disease. The surrounding soft tissues are normal. CT/CT head/brain wo con IMPRESSION: NO ACUTE INTRACRANIAL ABNORMALITY. CT CERVICAL SPINE WITHOUT CONTRAST WITH 3D RECONSTRUCTIONS: CLINICAL HISTORY: Rolled out of bed. COMPARISON: None TECHNIQUE: Spiral axial unenhanced images were obtained through the cervical spine. Sagittal, coronal and 3D volume-rendered reconstructions were also reviewed. This CT exam was performed using one or more following dose reduction techniques: Automated exposure control, adjustment of the mA and/or kV according to patient size, or use of iterative reconstruction technique. FINDINGS: Sclerotic lesions are seen throughout the cervical spine extending into the skull base, visualized thoracic spine and ribs. No fracture is seen. Vertebral body heights appear maintained. Scattered endplate, uncovertebral and facet joint degenerative changes with mild disc space narrowing C5-C7 and 2 mm of retrolisthesis of C3 on C4. No prevertebral soft tissue swelling. IMPRESSION: SCLEROTIC LESIONS ARE SEEN THROUGHOUT THE CERVICAL SPINE EXTENDING INTO THE SKULL BASE, VISUALIZED THORACIC SPINE AND RIBS. A METASTATIC PROCESS IS SUSPECTED. CORRELATION WITH HISTORY OF MALIGNANCY IS RECOMMENDED. NO ACUTE FRACTURE IS SEEN. Impression dictated by: Jeff Sykes Jr., Albino10/19/2023 10:51 AM Dictation Location: [place] [address] Transcribed By: [facility] 10/19/23 1051 Dictated By: Jeff Sykes Jr, DO 10/19/23 1046 Signed By: 10/19/23 1051 Normal [facility] Calcium [Mass/volume] in Ser um or PlasmaOrdered By: Linda Luo on 10-19-2023 Calcium [Mass/Vol] 8.7 mg/dL Normal 8.6-10.3 [facility] Comment on above: Performed By: #### C BC, CMP #### [address] Carbon dioxide, total [Moles /volume] in Serum or PlasmaOrdered By: Linda Luo on 10-19-2023 CO2 [Moles/Vol] 23.2 mmol/L Normal 21.0-31.0 [facility] Comment on above: Performed By: #### C BC, CMP #### [facility] [address] [place] [address] [place] Chloride [Moles/volume] in S colleen or PlasmaOrdered By: Linda Luo on 10-19-2023 Chloride [Moles/Vol] 106 mmol/L Normal 98-[address] [facility] Comment on above: Performed By: #### C BC, CMP #### [facility] [address] [place] [id number] [place] Complete Blood Count Auto Di ffon 10-19-2023 Mean Corpuscular HGB Conc 32.6 g/dL Normal 32.5-35.6 [facility] Comment on above: Performed By: #### C BC ####[facility] [id number] Monocyte Distribution Width Not performed Normal 0.00-20.00 [facility] Comment on above: Result Comment: Unab le to calculate MDW because the Absolute Monocyte Count is <0.8. Performed By: #### C BC ####[address] NRBC% 0.1 /100{WBC} Normal 0-0.5 [facility] Comment on above: Performed By: #### C BC ####[address] Comprehensive Metabolic Pane zack 10-19-2023 Albumin [Mass/Vol] 3.2 g/dL Low 3.5-5.7 [facility] Comment on above: Performed By: #### C BC, CMP #### [address] Creatinine Clr Calc Pharmacy 48.54 Normal [facility] Comment on above: Result Comment: PERF ORMED BY: [place] [address] PATHOLOGIST TOOL DESIGN DRAFTSPERSON NOAH PINEDA M.D. Performed By: #### C BC, CMP #### [address] GFR/1.73 sq M.predicted MDRD (S/P/Bld) [Vol rate/Area] mL/min/{1.73_m2} Normal [facility] Comment on above: Performed By: #### C BC, CMP #### [address] Creatinine [Mass/volume] in Serum or PlasmaOrdered By: Linda Luo on 10-19-2023 Creatinine [Mass/Vol] 0.99 mg/dL Normal 0.70-1.30 [facility] Comment on above: Performed By: #### C BC, CMP #### [address] Erythrocyte distribution wid th [Ratio] by Automated countOrdered By: Linda Luo on 10-19-2023 Erythrocyte distribution width (RBC) [Ratio] 14.5 % Normal 12.0-14.8 [facility] Comment on above: Performed By: #### C BC ####[place] [id number] [address] Erythrocytes [#/volume] in B lood by Automated countOrdered By: Linda Luo on 10-19-2023 RBC (Bld) [#/Vol] 4.71 10*6/uL Normal 3.90-5.60 [facility] Comment on above: Performed By: #### C BC ####[address] Glucose [Mass/volume] in Ser um or PlasmaOrdered By: Linda Luo on 10-19-2023 Glucose [Mass/Vol] 95 mg/dL Normal 70-100 [facility] Comment on above: ADA recommended refe rence rangeRandom Glucose Reference Range is dependent on time and content of last meal. Glucose of more than 200 mg/dL in a nonstressed, ambulatory subject supports the diagnosis of Diabetes Mellitus. Result Comment: [place] Glucose Reference Range is dependent on time and content of last meal. Glucose of more than 200 mg/dL in a nonstressed, ambulatory subject supports the diagnosis of Diabetes Mellitus. ADA recommended reference range Performed By: #### C BC, CMP #### [facility] [address] Hematocrit [Volume Fraction] of Blood by Automated countOrdered By: Linda Luo on 10-19-2023 Hematocrit (Bld) [Volume fraction] 37.6 % Low 38.8-50.0 [facility] Comment on above: Performed By: #### C BC ####[place] [id number] [address] Hemoglobin [Mass/volume] in BloodOrdered By: Linda Luo on 10-19-2023 Hemoglobin (Bld) [Mass/Vol] 12.2 g/dL Low 13.0-17.0 [facility] Comment on above: Performed By: #### C BC ####[facility] [address] [place] [address] Leukocytes [#/volume] correc teressa for nucleated erythrocytes in Blood by Automated counOrdered By: Linda Luo on 10-19-2023 WBC corrected for nucl RBC Auto (Bld) [#/Vol] 6.3 10*3/uL 4.1-10.5 [facility] Leukocytes [#/volume] in Blo od by Automated countOrdered By: Linda Luo on 10-19-2023 WBC (Bld) [#/Vol] 6.3 10*3/uL Normal 4.1-10.5 [facility] Comment on above: Performed By: #### C BC ####[address] Lymphocytes [#/volume] in Bl ood by Automated countOrdered By: Linda Luo on 10-19-2023 Lymphocytes (Bld) [#/Vol] 1.0 10*3/uL Normal 1.00-4.8 [facility] Comment on above: Performed By: #### C BC ####[address] Lymphocytes/100 leukocytes i n Blood by Automated countOrdered By: Linda Luo on 10-19-2023 Lymphocytes/100 WBC (Bld) 16.6 % Normal . [facility] Comment on above: Performed By: #### C BC ####[address] MCH [Entitic mass] by Automa teressa countOrdered By: Linda Luo on 10-19-2023 MCH (RBC) [Entitic mass] 26.0 pg Low 27.5-35.2 [facility] Comment on above: Performed By: #### C BC ####[address] MCHC Auto (RBC) [Mass/Vol]Or dered By: Linda Luo on 10-19-2023 MCHC (RBC) [Mass/Vol] 32.6 g/dL 32.5-35.6 [facility] MCV [Entitic volume] by Auto mated countOrdered By: Linda Luo on 10-19-2023 MCV (RBC) [Entitic vol] 79.7 fL Low 83.5-101 F [facility] Comment on above: Performed By: #### C BC ####[place] [id number] [address] Monocyte distribution width [Entitic volume] in Blood by AutomatedOrdered By: Linda Luo on 10-19-2023 Monocyte distribution width Auto (Bld) [Entitic vol] Test not performed % 0.00-20.00 [facility] Comment on above: Unable to calculate MDW because the Absolute Monocyte Count is <0.8. Neutrophils [#/volume] in Bl ood by Automated countOrdered By: Linda Luo on 10-19-2023 Neutrophils (Bld) [#/Vol] 4.7 10*3/uL Normal 1.8-7.7 [facility] Comment on above: Performed By: #### C BC ####[place] [id number] [address] No Panel InformationOrdered By: Linda Luo on 10-19-2023 Estimated GFR (CKD-EPI) > 60.0 mL/Min [facility] Creatinine Clearance (Chem 48.54 [facility] Nucleated erythrocytes [Pres ence] in Blood by Automated countOrdered By: Linda Luo on 10-19-2023 Nucleated RBC Auto Ql (Bld) 0.1 /100{WBC} 0-0.5 [facility] Platelet mean volume [Entiti c volume] in Blood by Automated countOrdered By: Linda Luo on 10-19-2023 Platelet mean volume (Bld) [Entitic vol] 6.9 fL Normal 6.6-10.1 [facility] Comment on above: Performed By: #### C BC ####[place] [id number] [address] Platelets [#/volume] in Bloo d by Automated countOrdered By: Linda Luo on 10-19-2023 Platelets (Bld) [#/Vol] 183 10*3/uL Normal 150-450 [facility] Comment on above: Performed By: #### C BC ####[facility] [id number] Potassium [Moles/volume] in Serum or PlasmaOrdered By: Linda Luo on 10-19-2023 Potassium [Moles/Vol] 4.2 mmol/L Normal 3.5-5.1 [facility] Comment on above: Performed By: #### C BC, CMP #### [address] Protein [Mass/volume] in Ser um or PlasmaOrdered By: Linda Luo on 10-19-2023 Protein [Mass/Vol] 6.2 g/dL Low 6.4-8.9 [facility] Comment on above: Performed By: #### C BC, CMP #### [address] Serum globulin measurement b y calculation (mass/volume)Ordered By: Linda Luo on 10-19-2023 Globulin (S) [Mass/Vol] 3.0 g/dL Normal [facility] Comment on above: Performed By: #### C BC, CMP #### [address] Serum or plasma albumin/glob ulin mass ratioOrdered By: Linda Luo on 10-19-2023 Albumin/Globulin [Mass ratio] 1.1 {ratio} Normal [facility] Comment on above: Performed By: #### C BC, CMP #### [address] Serum or plasma anion gap de terminationOrdered By: Linda Luo on 10-19-2023 Anion gap [Moles/Vol] 17.0 mmol/L High 6.0-15.0 [facility] Comment on above: Performed By: #### C BC, CMP #### [address] Sodium [Moles/volume] in Ser um or PlasmaOrdered By: Linda Luo on 10-19-2023 Sodium [Moles/Vol] 142 mmol/L Normal 136-145 [facility] Comment on above: Performed By: #### C ROLO, CMP #### [facility] [address] [place] [address] Urea nitrogen [Mass/volume] in Serum or PlasmaOrdered By: Linda Luo on 10-19-2023 Urea nitrogen [Mass/Vol] 30 mg/dL High 7-25 [facility] Comment on above: Performed By: #### C ROLO, CMP #### [facility] [address] [place] [id number] [facility] XR chest 1V portableon 10-18 XR chest 1V portable [facility] Main [address] [place] [address] XRay Report Signed Patient: Sebastian Diego MR#: [id number] : 1945 Acct:[id number] Age/Sex: 78 / M ADM Date: 10/18/23 Loc: ER Room: Type: [facility] ER Attending Dr: Copies to: Linda Luo DO Ordering Provider: Linda Luo DO Date of Service: 10/19/23 XR/XR chest 1V portable: Fall SINGLE VIEW CHEST CLINICAL HISTORY: Rolled out of bed. COMPARISON: Chest 02/06/2020 FINDINGS: Heart appears normal in size. Elevation the right hemidiaphragm associated right basilar atelectasis. No consolidation pneumothorax pleural effusion or free air. Diffuse sclerotic lesions are seen throughout the visualized osseous structures suggestive of bony metastatic disease. XR/XR chest 1V portable IMPRESSION: NO ACUTE CARDIOPULMONARY PROCESS. ELEVATION OF THE RIGHT HEMIDIAPHRAGM WITH ASSOCIATED RIGHT BASILAR ATELECTASIS. DIFFUSE SCLEROTIC LESIONS INVOLVING THE VISUALIZED OSSEOUS STRUCTURES SUGGESTIVE OF BONY METASTATIC DISEASE. Impression dictated by: Jeff Sykes Jr., D.O.10/19/2023 10:53 AM Dictation Location: [place] [address] Transcribed By: [facility] 10/19/23 1053 Dictated By: Jeff Sykes Jr, DO 10/19/23 1052 Signed By: 10/19/23 1053 Normal [facility] ECG 12 lead ECGon 10-18-2023 ECG 12 lead ECG [facility] [place] [address] Electrocardiograph Report Signed Patient: Sebastian Diego MR#: [id number] : 1945 Acct:[id number] Age/Sex: 78 / M ADM Date: 10/18/23 Loc: ER Room: Type: [facility] ER Attending Dr: Ordering Provider: Linda Luo DO Date of Service: 10/19/23 ECG/ECG 12 lead ECG: Fall Copies to: Test Reason : Blood Pressure : / mmHG Vent. Rate : 082 BPM Atrial Rate : 082 BPM P-R Int : 166 ms QRS Dur : 092 ms QT Int : 358 ms P-R-T Axes : 050 -38 048 degrees QTc Int : 418 ms Normal sinus rhythm Left axis deviation Confirmed by Linda Luo DO ([id number]) on 10/19/2023 4:36:07 AM Referred By: Electronically Signed By:Linda Luo DO Transcribed By: MUS Signed By Linda Luo DO 0436 Normal [facility] Physician Orderon 07-02-2023 Physician Order [id number] Normal [facility] ALL BASIC METABOLIC PANELon 06-17-2023 Anion gap [Moles/Vol] 12.9 mmol/L NO [facility] Calcium [Mass/Vol] 8.6 mg/dL 8.5 - 10. 1 mg/dL [facility] Chloride [Moles/Vol] 111 mmol/L High 98 - 10 7 mmol/L [facility] CO2 [Moles/Vol] 26.3 mmol/L 21.0 - 32.0 mmol/L [facility] Creatinine [Mass/Vol] 1.24 mg/dL 0.70 - 1.30 mg/dL [facility] GFR/1.73 sq M.predicted CKD-EPI (S/P/Bld) [Vol rate/Area] >60 60 - PINF [facility] Glucose [Mass/Vol] 81 mg/dL 74 - 106 mg/dL [facility] Interpretation and review of laboratory results Abnormal [facility] Potassium [Moles/Vol] 4.2 mmol/L 3.5 - 5.1 mmol/L [facility] Sodium [Moles/Vol] 146 mmol/L High 136 - 145 mmol/L [facility] TBH EGFR-NON AF ENGLISH 57 Low 60 - PINF [facility] Urea nitrogen [Mass/Vol] 37.0 mg/dL High 7.0 - 18.0 mg/dL [facility] Urea nitrogen/Creatinine [Mass ratio] 29.8 mg/mg [facility] Aerobic Cultureon 06-16-2023 Aerobic Culture Comment right groin wound culture No Growth 2 Days Comment right groin wound culture No Anaerobes Isolated 3 Days Comment right groin wound culture Gram Stain Result No Bacteria Seen PERFORMED BY: [place] [address] PATHOLOGIST TOOL DESIGN DRAFTSPERSON NOAH PINEDA M.D. Normal [facility] Comment on above: Performed By: #### A ERC ####[address] Anisocytosis [Presence] in B lood by Light microscopyOrdered By: Jewel Husain on 06-16-2023 Anisocytosis Ql (Bld) Slight Normal [facility] Comment on above: Performed By: #### C BC, CMP #### [address] Basic Metabolic Panelon 06-04 Creatinine Clr Calc Pharmacy 37.78 Normal [facility] Comment on above: Result Comment: PERF ORMED BY: [place] [address] PATHOLOGIST TOOL DESIGN DRAFTSPERSON NOAH PINEDA M.D. Performed By: #### C BC, CMP #### [address] GFR/1.73 sq M.predicted MDRD (S/P/Bld) [Vol rate/Area] 56.581 mL/min/{1.73_m2} Normal [facility] Comment on above: Performed By: #### C BC, CMP #### [address] Basophils Auto (Bld) [#/Vol] Ordered By: Jewel Husain on 06-16-2023 Basophils (Bld) [#/Vol] N/A F [facility] Basophils/100 WBC Auto (Bld) Ordered By: Jewel Husain on 06-16-2023 Basophils/100 WBC (Bld) N/A F [facility] [place]ea cells [Presence] in Blo od by Light microscopyOrdered By: Jewel Husain on 06-16-2023 [place]ea cells LM Ql (Bld) Slight [facility] Calcium [Mass/volume] in Ser um or PlasmaOrdered By: Jewel Husain on 06-16-2023 Calcium [Mass/Vol] 9.1 mg/dL Normal 8.6-10.3 [facility] Comment on above: Performed By: #### C BC, CMP #### [facility] [address] Capillary blood glucose meir urement by glucometer (mass/volume)Ordered By: Linda Rodriguez on 06-16-2023 Glucose [Mass/Vol] 140 mg/dL Normal [facility] Comment on above: Random Glucose Refer ence Range is dependent on time and content of last meal. Glucose of more than 200 mg/dL in a nonstressed, ambulatory subject supports the diagnosis of Diabetes Mellitus. Result Comment: [facility] Glucose Reference Range is dependent on time and content of last meal. Glucose of more than 200 mg/dL in a nonstressed, ambulatory subject supports the diagnosis of Diabetes Mellitus. Performed By: #### G LULS #### Point of Care testing , Glucose [Mass/Vol] 80 mg/dL Normal [facility] Comment on above: Random Glucose Refer ence Range is dependent on time and content of last meal. Glucose of more than 200 mg/dL in a nonstressed, ambulatory subject supports the diagnosis of Diabetes Mellitus. Result Comment: [facility] Glucose Reference Range is dependent on time and content of last meal. Glucose of more than 200 mg/dL in a nonstressed, ambulatory subject supports the diagnosis of Diabetes Mellitus. PERFORMED BY: [facility] [address] [facility] [place] [address] PATHOLOGIST TOOL DESIGN DRAFTSPERSON NOAH PINEDA M.D. Performed By: #### G SIVAKUMAR #### Point of Care testing , Carbon dioxide, total [Moles /volume] in Serum or PlasmaOrdered By: Jewel Husain on 06-16-2023 CO2 [Moles/Vol] 29.3 mmol/L Normal 21.0-31.0 [facility] Comment on above: Performed By: #### C BC, CMP #### [address] Chloride [Moles/volume] in S colleen or PlasmaOrdered By: Jewel Husain on 06-16-2023 Chloride [Moles/Vol] 108 mmol/L High 98-[address] [facility] Comment on above: Performed By: #### C BC, CMP #### [address] Creatinine [Mass/volume] in Serum or PlasmaOrdered By: Jewel Husain on 06-16-2023 Creatinine [Mass/Vol] 1.30 mg/dL Normal 0.70-1.30 [facility] Comment on above: Performed By: #### C BC, CMP #### [place] [id number] [place] Diff and CBCon 06-16-2023 Crenated RBC Slight Normal [facility] Comment on above: Performed By: #### C BC, CMP #### [address] Mean Corpuscular HGB Conc 33.5 g/dL Normal 32.5-35.6 [facility] Comment on above: Performed By: #### C BC, CMP #### [address] Ovalocytes Slight Normal [facility] Comment on above: Performed By: #### C BC, CMP #### [address] Platelet Estimate Normal Normal Normal [facility] Comment on above: Performed By: #### C BC, CMP #### [facility] [address] Platelet Morphology Normal Normal Normal [facility] Comment on above: Result Comment: PERF ORMED BY: [place] [address] PATHOLOGIST TOOL DESIGN DRAFTSPERSON NOAH PINEDA M.D. Performed By: #### C BC, CMP #### [address] Poikilocytosis Slight Normal [facility] Comment on above: Performed By: #### C BC, CMP #### [address] Eosinophils Auto (Bld) [#/Vo l]Ordered By: Jewel Husain on 06-16-2023 Eosinophils (Bld) [#/Vol] N/A [facility] Eosinophils/100 WBC Auto (Bl d)Ordered By: Jewel Husain on 06-16-2023 Eosinophils/100 WBC (Bld) N/A [facility] Eosinophils/100 leukocytes i n Blood by Manual countOrdered By: Jewel Husain on 06-16-2023 Eosinophils/100 WBC (Bld) 12 % High 1-3 [facility] Comment on above: Performed By: #### C BC, CMP #### [address] Erythrocyte distribution wid th [Ratio] by Automated countOrdered By: Jewel Husain on 06-16-2023 Erythrocyte distribution width (RBC) [Ratio] 15.8 % High 12.0-14.8 [facility] Comment on above: Performed By: #### C BC, CMP #### [address] Erythrocytes [#/volume] in B lood by Automated countOrdered By: Jewel Husain on 06-16-2023 RBC (Bld) [#/Vol] 3.68 10*6/uL Low 3.90-5.60 [facility] Comment on above: Performed By: #### C BC, CMP #### [address] Glucose Poct Glucometerson 0 06-16-2023 Commemt1 Glu2: Cleaned Meter Normal [facility] Comment on above: Result Comment: PERF ORMED BY: [address] [address] PATHOLOGIST TOOL DESIGN DRAFTSPERSON NOAH PINEDA M.D. Performed By: #### G LULS #### Point of Care testing , Commemt1 Glu2: Cleaned Meter Normal [facility] Comment on above: Result Comment: PERF ORMED BY: [place] [address] PATHOLOGIST TOOL DESIGN DRAFTSPERSON NOAH PINEDA M.D. Performed By: #### C BC, CMP #### [address] Glucose [Mass/Vol] 61 mg/dL Normal [facility] Comment on above: Result Comment: [place] Glucose Reference Range is dependent on time and content of last meal. Glucose of more than 200 mg/dL in a nonstressed, ambulatory subject supports the diagnosis of Diabetes Mellitus. Performed By: #### C BC, CMP #### [place] [id number] [place] Glucose [Mass/Vol] 67 mg/dL Normal [facility] Comment on above: Result Comment: [place] Glucose Reference Range is dependent on time and content of last meal. Glucose of more than 200 mg/dL in a nonstressed, ambulatory subject supports the diagnosis of Diabetes Mellitus. PERFORMED BY: [place] [address] PATHOLOGIST TOOL DESIGN DRAFTSPERSON NOAH PINEDA M.D. Performed By: #### C BC, CMP #### [facility] [address] [place] [address] [place] Commemt1 Normal [facility] Comment on above: Result Comment: Glu2 : Will Repeat Test PERFORMED BY: [address] [place] [address] PATHOLOGIST TOOL DESIGN DRAFTSPERSON NOAH PINEDA M.D. Performed By: #### G LULS ####Point of Care testing, Glucose [Mass/Vol] 41 mg/dL Off scale low [facility] Comment on above: Result Comment: [place] Glucose Reference Range is dependent on time and content of last meal. Glucose of more than 200 mg/dL in a nonstressed, ambulatory subject supports the diagnosis of Diabetes Mellitus. Performed By: #### G LULS ####Point of Care testing, Commemt1 Glu2: Cleaned Meter Normal [facility] Comment on above: Result Comment: PERF ORMED BY: [facility] [address] [place] [address] PATHOLOGIST TOOL DESIGN DRAFTSPERSON NOAH PINEDA M.D. Performed By: #### G LULS ####Point of Care testing, Glucose [Mass/Vol] 64 mg/dL Normal [facility] Comment on above: Result Comment: [place] Glucose Reference Range is dependent on time and content of last meal. Glucose of more than 200 mg/dL in a nonstressed, ambulatory subject supports the diagnosis of Diabetes Mellitus. Performed By: #### G LULS ####Point of Care testing, Glucose [Mass/volume] in Ser um or PlasmaOrdered By: Jewel Husain on 06-16-2023 Glucose [Mass/Vol] 76 mg/dL Normal 70-100 [facility] Comment on above: ADA recommended refe rence rangeRandom Glucose Reference Range is dependent on time and content of last meal. Glucose of more than 200 mg/dL in a nonstressed, ambulatory subject supports the diagnosis of Diabetes Mellitus. Result Comment: [place] Glucose Reference Range is dependent on time and content of last meal. Glucose of more than 200 mg/dL in a nonstressed, ambulatory subject supports the diagnosis of Diabetes Mellitus. ADA recommended reference range Performed By: #### C BC, CMP #### [facility] [address] Gram stain for investigation of transfusion reactionOrdered By: Linda Rodriguez on 06-16-2023 Microscopic observation Gram stain Nom (Unsp spec) No Anaerobes Isolated 3 Days [facility] Hematocrit [Volume Fraction] of Blood by Automated countOrdered By: Jewel Husain on 06-16-2023 Hematocrit (Bld) [Volume fraction] 33.8 % Low 38.8-50.0 [facility] Comment on above: Performed By: #### C BC, CMP #### [address] Hemoglobin [Mass/volume] in BloodOrdered By: Jewel Husain on 06-16-2023 Hemoglobin (Bld) [Mass/Vol] 11.3 g/dL Low 13.0-17.0 [facility] Comment on above: Performed By: #### C BC, CMP #### [address] Leukocytes [#/volume] correc teressa for nucleated erythrocytes in Blood by Automated counOrdered By: Jewel Husain on 06-16-2023 WBC corrected for nucl RBC Auto (Bld) [#/Vol] 10.3 10*3/uL 4.1-10.5 [facility] Leukocytes [#/volume] in Blo od by Automated countOrdered By: Jewel Husain on 06-16-2023 WBC (Bld) [#/Vol] 10.3 10*3/uL Normal 4.1-10.5 [facility] Comment on above: Performed By: #### C BC, CMP #### [address] Lymphocytes Auto (Bld) [#/Vo l]Ordered By: Jewel Husain on 06-16-2023 Lymphocytes (Bld) [#/Vol] N/A [facility] Lymphocytes/100 WBC Auto (Bl d)Ordered By: Jewel Husain on 06-16-2023 Lymphocytes/100 WBC (Bld) N/A [facility] Lymphocytes/100 leukocytes i n Blood by Manual countOrdered By: Jewel Husain on 06-16-2023 Lymphocytes/100 WBC (Bld) 15 % Low 18-42 [facility] Comment on above: Performed By: #### C BC, CMP #### [address] MCH [Entitic mass] by Automa teressa countOrdered By: Jewel Husain on 06-16-2023 MCH (RBC) [Entitic mass] 30.7 pg Normal 27.5-35.2 [facility] Comment on above: Performed By: #### C BC, CMP #### [facility] [address] [place] [address] MCHC Auto (RBC) [Mass/Vol]Or dered By: Jewel Husain on 06-16-2023 MCHC (RBC) [Mass/Vol] 33.5 g/dL 32.5-35.6 [facility] MCV [Entitic volume] by Auto mated countOrdered By: Jewel Husain on 06-16-2023 MCV (RBC) [Entitic vol] 91.9 fL Normal 83.5-101 F [facility] Comment on above: Performed By: #### C BC, CMP #### [address] Manual blood segmented neutr ophils/100 leukocytesOrdered By: Jewel Husain on 06-16-2023 Segmented neutrophils/100 WBC (Bld) 67 % Normal 50-70 [facility] Comment on above: Performed By: #### C BC, CMP #### [address] Monocytes Auto (Bld) [#/Vol] Ordered By: Jewel Husain on 06-16-2023 Monocytes (Bld) [#/Vol] N/A [facility] Monocytes/100 WBC Auto (Bld) Ordered By: Jewel Husain on 06-16-2023 Monocytes/100 WBC (Bld) N/A [facility] Monocytes/100 leukocytes in Blood by Manual countOrdered By: Jewel Husain on 06-16-2023 Monocytes/100 WBC (Bld) 6 % Normal 2-11 [facility] Comment on above: Performed By: #### C BC, CMP #### [address] Neutrophils Auto (Bld) [#/Vo l]Ordered By: Jewelkiera Husain on 06-16-2023 Neutrophils (Bld) [#/Vol] N/A [facility] Neutrophils/100 WBC Auto (Bl d)Ordered By: Jewel Husain on 06-16-2023 Neutrophils/100 WBC (Bld) N/A [facility] No Panel InformationOrdered By: Linda Rodriguez on 06-16-2023 Bedside Glucose Comment Glu2: cleaned meter [facility] No Panel InformationOrdered By: Jewel Husain on 06-16-2023 Estimated GFR (CKD-EPI) 56.581 mL/Min [facility] Creatinine Clearance (Chem 37.78 [facility] Nucleated erythrocytes [Pres ence] in Blood by Automated countOrdered By: Jewel Husain on 06-16-2023 Nucleated RBC Auto Ql (Bld) N/A [facility] Ovalocyte detectionOrdered B y: Jewel Husain on 06-16-2023 Ovalocytes LM Ql (Bld) [facility] Platelet adequacy [Presence] in Blood by Light microscopyOrdered By: Jewel Husain on 06-16-2023 Platelets LM Ql (Bld) Normal Normal [facility] Platelet mean volume [Entiti c volume] in Blood by Automated countOrdered By: Jewel Husain on 06-16-2023 Platelet mean volume (Bld) [Entitic vol] 7.9 fL Normal 6.6-10.1 [facility] Comment on above: Performed By: #### C BC, CMP #### [facility] [address] Platelet morphology finding [Identifier] in BloodOrdered By: Jewel Husain on 06-16-2023 Platelet morphology finding Nom (Bld) Normal Normal [facility] Platelets [#/volume] in Bloo d by Automated countOrdered By: Jewel Husain on 06-16-2023 Platelets (Bld) [#/Vol] 249 10*3/uL Normal 150-450 [facility] Comment on above: Performed By: #### C BC, CMP #### [facility] [address] Poikilocytosis [Presence] in Blood by Light microscopyOrdered By: Jewel Husain on 06-16-2023 Poikilocytosis LM Ql (Bld) Slight [facility] Potassium [Moles/volume] in Serum or PlasmaOrdered By: Jewelkiera Husain on 06-16-2023 Potassium [Moles/Vol] 4.5 mmol/L Normal 3.5-5.1 [facility] Comment on above: Performed By: #### C BC, CMP #### [address] RBC morphologyOrdered By: Sa parish Husain on 06-16-2023 RBC morphology finding Nom (Bld) Normal Normal Normal [facility] Comment on above: Performed By: #### C BC, CMP #### [address] Serum or plasma anion gap de terminationOrdered By: Jewel Lisha on 06-16-2023 Anion gap [Moles/Vol] 12.2 mmol/L Normal 6.0-15.0 [facility] Comment on above: Performed By: #### C BC, CMP #### [address] Sodium [Moles/volume] in Ser um or PlasmaOrdered By: Jewel Husain on 06-16-2023 Sodium [Moles/Vol] 145 mmol/L Normal 136-145 [facility] Comment on above: Performed By: #### C BC, CMP #### [address] Urea nitrogen [Mass/volume] in Serum or PlasmaOrdered By: Jewelkiera Husain on 06-16-2023 Urea nitrogen [Mass/Vol] 44 mg/dL High 7-25 [facility] Comment on above: Performed By: #### C BC, CMP #### [address] [facility] CMP (CMP) (FOR REMOTE FH C USE)on 06-15-2023 Albumin [Mass/Vol] 2.2 g/dL Low 3.4 - 5.0 g/dL [facility] ALBUMIN GLOBULIN RATIO 0.6 NO [facility] ALP [Catalytic activity/Vol] 192 U/L High 46 - 116 U/L [facility] ALT [Catalytic activity/Vol] 15 U/L Low 16 - 63 U/L [facility] Anion gap [Moles/Vol] 10.1 mmol/L NO [facility] AST [Catalytic activity/Vol] 17 U/L 15 - 37 U/L [facility] Bilirubin [Mass/Vol] 0.3 mg/dL 0.2 - 1 .0 mg/dL [facility] Calcium [Mass/Vol] 8.9 mg/dL 8.5 - 10. 1 mg/dL [facility] Chloride [Moles/Vol] 108 mmol/L High 98 - 10 7 mmol/L [facility] CO2 [Moles/Vol] 30.5 mmol/L 21.0 - 32.0 mmol/L [facility] Creatinine [Mass/Vol] 1.64 mg/dL High 0.70 - 1.30 mg/dL [facility] GFR/1.73 sq M.predicted CKD-EPI (S/P/Bld) [Vol rate/Area] 50 Low 60 - PINF [facility] Globulin (S) [Mass/Vol] 3.7 g/dL [facility] Glucose [Mass/Vol] 83 mg/dL 74 - 106 mg/dL [facility] Interpretation and review of laboratory results Abnormal [facility] Potassium [Moles/Vol] 5.6 mmol/L High 3.5 - 5.1 mmol/L [facility] Protein [Mass/Vol] 5.9 g/dL Low 6.4 - 8.2 g/dL [facility] Sodium [Moles/Vol] 143 mmol/L 136 - 145 mmol/L [facility] TBH EGFR-NON AF ENGLISH 41 Low 60 - PINF [facility] Urea nitrogen [Mass/Vol] 52.0 mg/dL High 7.0 - 18.0 mg/dL [facility] Urea nitrogen/Creatinine [Mass ratio] 31.7 mg/mg [facility] ALL BASIC METABOLIC PANELon 06-12-2023 Anion gap [Moles/Vol] 13.5 mmol/L NO [facility] Calcium [Mass/Vol] 9.0 mg/dL 8.5 - 10. 1 mg/dL [facility] Chloride [Moles/Vol] 104 mmol/L 98 - 10 7 mmol/L [facility] CO2 [Moles/Vol] 27.4 mmol/L 21.0 - 32.0 mmol/L [facility] Creatinine [Mass/Vol] 2.14 mg/dL High 0.70 - 1.30 mg/dL [facility] GFR/1.73 sq M.predicted CKD-EPI (S/P/Bld) [Vol rate/Area] 37 Low 60 - PINF [facility] Glucose [Mass/Vol] 97 mg/dL 74 - 106 mg/dL [facility] Interpretation and review of laboratory results Abnormal [facility] Potassium [Moles/Vol] 5.9 mmol/L High 3.5 - 5.1 mmol/L [facility] Sodium [Moles/Vol] 139 mmol/L 136 - 145 mmol/L [facility] TBH EGFR-NON AF ENGLISH 30 Low 60 - PINF [facility] Urea nitrogen [Mass/Vol] 71.0 mg/dL High 7.0 - 18.0 mg/dL [facility] Urea nitrogen/Creatinine [Mass ratio] 33.2 mg/mg [facility] Consent for Procedure/Surger yon 06-01-2023 Consent for Procedure/Surgery [id number] DD#[id number] Normal [facility] Operative Reporton 4 Operative Report [id number] 7#1.00TIFF Normal [facility] Capillary blood glucose meir urement by glucometer (mass/volume)Ordered By: Linda Rodriguez on 04-24-2023 Glucose [Mass/Vol] 102 mg/dL Normal [facility] Comment on above: Random Glucose Refer ence Range is dependent on time and content of last meal. Glucose of more than 200 mg/dL in a nonstressed, ambulatory subject supports the diagnosis of Diabetes Mellitus. Result Comment: [facility] Glucose Reference Range is dependent on time and content of last meal. Glucose of more than 200 mg/dL in a nonstressed, ambulatory subject supports the diagnosis of Diabetes Mellitus. Performed By: #### C BC, CMP #### [address] Glucose Poct Glucometerson 1 06-25-2022 Commemt1 Glu2: Cleaned Meter Normal [facility] Comment on above: Result Comment: PERF ORMED BY: [facility] [address] [place] [address] PATHOLOGIST TOOL DESIGN DRAFTSPERSON NOAH PINEDA M.D. Performed By: #### C BC, CMP #### [address] No Panel InformationOrdered By: Linda Rodriguez on 04-24-2023 Bedside Glucose Comment Glu2: cleaned meter [facility] Glucose Poct Glucometerson 1 06-24-2022 Glucose [Mass/Vol] 118 mg/dL Normal [facility] Comment on above: Result Comment: [place] Glucose Reference Range is dependent on time and content of last meal. Glucose of more than 200 mg/dL in a nonstressed, ambulatory subject supports the diagnosis of Diabetes Mellitus. PERFORMED BY: [place] [address] PATHOLOGIST TOOL DESIGN DRAFTSPERSON NOAH PINEDA M.D. Performed By: #### C BC, CMP #### [address] Commemt1 Glu2: Cleaned Meter Normal [facility] Comment on above: Result Comment: PERF ORMED BY: [place] [address] PATHOLOGIST TOOL DESIGN DRAFTSPERSON NOAH PINEDA M.D. Performed By: #### C BC, CMP #### [address] Glucose [Mass/Vol] 77 mg/dL Normal [facility] Comment on above: Result Comment: [place] Glucose Reference Range is dependent on time and content of last meal. Glucose of more than 200 mg/dL in a nonstressed, ambulatory subject supports the diagnosis of Diabetes Mellitus. Performed By: #### C BC, CMP #### [place] [id number] [facility] Glucose Poct Glucometerson 1 06-23-2022 Glucose [Mass/Vol] 65 mg/dL Normal [facility] Comment on above: Result Comment: [place] Glucose Reference Range is dependent on time and content of last meal. Glucose of more than 200 mg/dL in a nonstressed, ambulatory subject supports the diagnosis of Diabetes Mellitus. PERFORMED BY: [facility] [address] [place] [address] PATHOLOGIST TOOL DESIGN DRAFTSPERSON NOAH PINEDA M.D. Performed By: #### C BC, CMP #### [address] Commemt1 Glu2: Cleaned Meter Normal [facility] Comment on above: Result Comment: PERF ORMED BY: [place] [address] PATHOLOGIST TOOL DESIGN DRAFTSPERSON NOAH PINEDA M.D. Performed By: #### C BC, CMP #### [address] Glucose [Mass/Vol] 81 mg/dL Normal [facility] Comment on above: Result Comment: [facility] Glucose Reference Range is dependent on time and content of last meal. Glucose of more than 200 mg/dL in a nonstressed, ambulatory subject supports the diagnosis of Diabetes Mellitus. Performed By: #### C BC, CMP #### [address] Automated basophil %Ordered By: Linda Rodriguze on 04-21-2023 Basophils/100 WBC (Bld) 0.2 % Normal . [facility] Comment on above: Performed By: #### C BC, CMP #### [address] Automated basophil countOrde red By: Linda Rodriguez on 04-21-2023 Basophils (Bld) [#/Vol] 0.0 10*3/uL Normal 0.0-0.2 [facility] Comment on above: Result Comment: PERF ORMED BY: [place] [address] PATHOLOGIST TOOL DESIGN DRAFTSPERSON NOAH PINEDA M.D. Performed By: #### C BC, CMP #### [address] Automated blood monocyte cou ntOrdered By: Linda Rodriguez on 04-21-2023 Monocytes (Bld) [#/Vol] 0.8 10*3/uL Normal 0.0-0.8 [facility] Comment on above: Performed By: #### C BC, CMP #### [address] Automated eosinophil %Ordere d By: Linda Amayacynthia on 04-21-2023 Eosinophils/100 WBC (Bld) 0.0 % Normal . [facility] Comment on above: Performed By: #### C BC, CMP #### [address] Automated eosinophil countOr dered By: Linda Amayacynthia on 04-21-2023 Eosinophils (Bld) [#/Vol] 0.0 10*3/uL Normal 0.0-0.45 [facility] Comment on above: Performed By: #### C BC, CMP #### [address] Automated monocyte %Ordered By: Linda Michael on 04-21-2023 Monocytes/100 WBC (Bld) 4.6 % Normal . [facility] Comment on above: Performed By: #### C BC, CMP #### [address] Automated neutrophil %Ordere d By: Linda Amayacynthia on 04-21-2023 Neutrophils/100 WBC (Bld) 91.3 % Normal . [facility] Comment on above: Performed By: #### C BC, CMP #### [address] Basic Metabolic Panelon 12- Anion gap [Moles/Vol] Not performed Normal 6.0-15.0 [facility] Comment on above: Performed By: #### C BC, CMP #### [address] Creatinine Clr Calc Pharmacy 54.31 Normal [facility] Comment on above: Result Comment: PERF ORMED BY: [place] [address] PATHOLOGIST TOOL DESIGN DRAFTSPERSON NOAH PINEDA M.D. Performed By: #### C BC, CMP #### [address] GFR/1.73 sq M.predicted MDRD (S/P/Bld) [Vol rate/Area] mL/min/{1.73_m2} Normal [facility] Comment on above: Performed By: #### C BC, CMP #### [address] Potassium Normal 3.5-5.1 [facility] Comment on above: Result Comment: Spec imen hemolyzed, redraw requested Performed By: #### C BC, CMP #### [address] Calcium [Mass/volume] in Ser um or PlasmaOrdered By: Linda Rodriguez on 04-21-2023 Calcium [Mass/Vol] 8.0 mg/dL Low 8.6-10.3 [facility] Comment on above: Performed By: #### C BC, CMP #### [address] Carbon dioxide, total [Moles /volume] in Serum or PlasmaOrdered By: Linda Rodriguez on 04-21-2023 CO2 [Moles/Vol] 24.7 mmol/L Normal 21.0-31.0 [facility] Comment on above: Performed By: #### C BC, CMP #### [address] Chloride [Moles/volume] in S colleen or PlasmaOrdered By: Linda Rodriguez on 04-21-2023 Chloride [Moles/Vol] 106 mmol/L Normal 98-[address] [facility] Comment on above: Performed By: #### C BC, CMP #### [address] Complete Blood Count Auto Di ffon 04-21-2023 Mean Corpuscular HGB Conc 33.5 g/dL Normal 32.5-35.6 [facility] Comment on above: Performed By: #### C BC, CMP #### [address] NRBC% 0.0 /100{WBC} Normal 0-0.5 [facility] Comment on above: Performed By: #### C BC, CMP #### [address] Creatinine [Mass/volume] in Serum or PlasmaOrdered By: Linda Rodriguez on 04-21-2023 Creatinine [Mass/Vol] 1.06 mg/dL Normal 0.70-1.30 [facility] Comment on above: Performed By: #### C BC, CMP #### [address] Erythrocyte distribution wid th [Ratio] by Automated countOrdered By: Linda Rodriguez on 04-21-2023 Erythrocyte distribution width (RBC) [Ratio] 13.8 % Normal 12.0-14.8 [facility] Comment on above: Performed By: #### C BC, CMP #### [address] Erythrocytes [#/volume] in B lood by Automated countOrdered By: Linda Rodriguez on 04-21-2023 RBC (Bld) [#/Vol] 3.41 10*6/uL Low 3.90-5.60 [facility] Comment on above: Performed By: #### C BC, CMP #### [address] Glucose [Mass/volume] in Ser um or PlasmaOrdered By: Linda Rodriguez on 04-21-2023 Glucose [Mass/Vol] 130 mg/dL High 70-100 [facility] Comment on above: ADA recommended refe rence rangeRandom Glucose Reference Range is dependent on time and content of last meal. Glucose of more than 200 mg/dL in a nonstressed, ambulatory subject supports the diagnosis of Diabetes Mellitus. Result Comment: [place] Glucose Reference Range is dependent on time and content of last meal. Glucose of more than 200 mg/dL in a nonstressed, ambulatory subject supports the diagnosis of Diabetes Mellitus. ADA recommended reference range Performed By: #### C BC, CMP #### [place] [id number] [place] Hematocrit [Volume Fraction] of Blood by Automated countOrdered By: Linda Rodriguez on 04-21-2023 Hematocrit (Bld) [Volume fraction] 31.7 % Low 38.8-50.0 [facility] Comment on above: Performed By: #### C BC, CMP #### [address] Hemoglobin [Mass/volume] in BloodOrdered By: Linda Rodriguez on 04-21-2023 Hemoglobin (Bld) [Mass/Vol] 10.6 g/dL Low 13.0-17.0 [facility] Comment on above: Performed By: #### C ROLO, CMP #### [address] Leukocytes [#/volume] correc teressa for nucleated erythrocytes in Blood by Automated counOrdered By: Linda Rodriguez on 04-21-2023 WBC corrected for nucl RBC Auto (Bld) [#/Vol] 17.5 10*3/uL 4.1-10.5 [facility] Leukocytes [#/volume] in Blo od by Automated countOrdered By: Linda Rodriguez on 04-21-2023 WBC (Bld) [#/Vol] 17.5 10*3/uL High 4.1-10.5 [facility] Comment on above: Performed By: #### C ROLO, CMP #### [address] Lymphocytes [#/volume] in Bl ood by Automated countOrdered By: Linda Rodriguez on 04-21-2023 Lymphocytes (Bld) [#/Vol] 0.7 10*3/uL Low 1.00-4.8 [facility] Comment on above: Performed By: #### C BC, CMP #### [address] Lymphocytes/100 leukocytes i n Blood by Automated countOrdered By: Linda Rodriguez on 04-21-2023 Lymphocytes/100 WBC (Bld) 3.9 % Normal . [facility] Comment on above: Performed By: #### C BC, CMP #### [address] MCH [Entitic mass] by Automa teressa countOrdered By: Linda Rodriguez on 04-21-2023 MCH (RBC) [Entitic mass] 31.1 pg Normal 27.5-35.2 [facility] Comment on above: Performed By: #### C BC, CMP #### [address] MCHC Auto (RBC) [Mass/Vol]Or dered By: Linda Rodriguez on 04-21-2023 MCHC (RBC) [Mass/Vol] 33.5 g/dL 32.5-35.6 [facility] MCV [Entitic volume] by Auto mated countOrdered By: Linda Rodriguez on 04-21-2023 MCV (RBC) [Entitic vol] 92.8 fL Normal 83.5-101 F [facility] Comment on above: Performed By: #### C BC, CMP #### [address] Neutrophils [#/volume] in Bl ood by Automated countOrdered By: Linda Rodriguez on 04-21-2023 Neutrophils (Bld) [#/Vol] 16.0 10*3/uL High 1.8-7.7 [facility] Comment on above: Performed By: #### C BC, CMP #### [address] No Panel InformationOrdered By: Linda Rodriguez on 04-21-2023 Estimated GFR (CKD-EPI) > 60.0 mL/Min [facility] Creatinine Clearance (Chem 54.31 [facility] Nucleated erythrocytes [Pres ence] in Blood by Automated countOrdered By: Linda Rodriguez on 04-21-2023 Nucleated RBC Auto Ql (Bld) 0.0 /100{WBC} 0-0.5 [facility] Platelet mean volume [Entiti c volume] in Blood by Automated countOrdered By: Linda Rodriguez on 04-21-2023 Platelet mean volume (Bld) [Entitic vol] 8.1 fL Normal 6.6-10.1 [facility] Comment on above: Performed By: #### C BC, CMP #### [facility] [address] Platelets [#/volume] in Bloo d by Automated countOrdered By: Linda Rodriguez on 04-21-2023 Platelets (Bld) [#/Vol] 244 10*3/uL Normal 150-450 [facility] Comment on above: Performed By: #### C BC, CMP #### [facility] [address] Potassium [Moles/volume] in Serum or PlasmaOrdered By: Linda Rodriguez on 04-21-2023 Potassium [Moles/Vol] 4.0 mmol/L Normal 3.5-5.1 [facility] Comment on above: Order Comment: SPECI MEN HEMOLYZED. NOTIFIED TROY. Result Comment: PERF ORMED BY: [place] [address] PATHOLOGIST TOOL DESIGN DRAFTSPERSON NOAH PINEDA M.D. Performed By: #### C BC, CMP #### [address] Serum or plasma anion gap de terminationOrdered By: Linda Rodriguez on 04-21-2023 Anion gap [Moles/Vol] TNP [facility] Comment on above: Test not performed Sodium [Moles/volume] in Ser um or PlasmaOrdered By: Linda Rodriguez on 04-21-2023 Sodium [Moles/Vol] 137 mmol/L Normal 136-145 [facility] Comment on above: Performed By: #### C BC, CMP #### [facility] [address] Urea nitrogen [Mass/volume] in Serum or PlasmaOrdered By: Linda Rodriguez on 04-21-2023 Urea nitrogen [Mass/Vol] 19 mg/dL Normal 7-25 [facility] Comment on above: Performed By: #### C BC, CMP #### [facility] [address] ABO/Rh Retypeon 04-20-2023 ABO/RH Recheck Result Positive Normal [facility] Comment on above: Order Comment: Pleas e send a phleb per [place] in [place]. [place] Result Comment: PERF ORMED BY: [place] [address] PATHOLOGIST TOOL DESIGN DRAFTSPERSON NOAH PINEDA M.D. Activated Clotting Timeon Activated Clotting Time POC 250 s High 90-139 [facility] Comment on above: Result Comment: Refe rence Range: 90-139 (Non-heparinized) PERFORMED BY: [place] [address] PATHOLOGIST TOOL DESIGN DRAFTSPERSON NOAH PINEDA M.D. Performed By: #### A CT #### [place] [id number] [facility] Blood activated clotting lynda e by coagulation assayOrdered By: Linda Rodriguez on 04-20-2023 ACT Coag (Bld) 250 s 90-139 [facility] Comment on above: Reference Range: 90- 139 (Non-heparinized) Glucose Poct Glucometerson 1 06-21-2022 Glucose [Mass/Vol] 156 mg/dL Normal [facility] Comment on above: Result Comment: [place] Glucose Reference Range is dependent on time and content of last meal. Glucose of more than 200 mg/dL in a nonstressed, ambulatory subject supports the diagnosis of Diabetes Mellitus. Performed By: #### C BC, CMP #### [address] Glucose [Mass/Vol] 154 mg/dL Normal [facility] Comment on above: Result Comment: [place] Glucose Reference Range is dependent on time and content of last meal. Glucose of more than 200 mg/dL in a nonstressed, ambulatory subject supports the diagnosis of Diabetes Mellitus. PERFORMED BY: [place] [address] PATHOLOGIST TOOL DESIGN DRAFTSPERSON NOAH PINEDA M.D. Performed By: #### C BC, CMP #### [facility] [address] [place] [address] Commemt1 Glu2: Cleaned Meter Normal [facility] [facility] Comment on above: Result Comment: PERF ORMED BY: [address] [place] [address] PATHOLOGIST TOOL DESIGN DRAFTSPERSON NOAH PINEDA M.D. Performed By: #### C BC, CMP #### [address] Glucose [Mass/Vol] 118 mg/dL Normal [facility] Comment on above: Result Comment: [place] Glucose Reference Range is dependent on time and content of last meal. Glucose of more than 200 mg/dL in a nonstressed, ambulatory subject supports the diagnosis of Diabetes Mellitus. 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 Pie Maker sections are submitted in one cassette labeled A1. Microscopic Description One H E slide reviewed. The microscopic examination confirms the diagnosis. 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 N Result Comment: PERF ORMED BY: [facility] [address] [place] [address] PATHOLOGIST TOOL DESIGN DRAFTSPERSON NOAH PINEDA M.D. 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 Bladder (more content not included)... Normal [facility] ED Note-Physicianon 12-15-20 23 ED Note-Physician [id number]#1.00TIFF Salma Santana [facility] Patient Educationon 04-17-20 Patient Education Urology Acute [...] these instructions at home: Medicines ? Take fnoy-zsy-yzgetxv and prescription medicines only as told by [...] provider. Document Revised: 01/09/2021 Document Reviewed: 01/09/2021 [employer] Patient Education ? 2022 [employer] [facility] Office/Clinic Noteon 04-17-2023 Urology Office/Clinic Note [...] & chen inserted. Pt then went to [facility] ER 04/09/23 due to catheter not [...] & chen inserted. Pt later presented to [facility] ER 04/09/23 due to catheter not [...] Contact Information Sancho LEE MD, URL [address] [facility] [place] [address]- Additional Instructions: Prostate bx after aneurysm repair Patient Education Acute Urinary Retention, Male I, Jie Ruiz, personally scribed for Dr. Lee on 04/17/2023 10:26:56. . Documentation recorded by the scribe, Jie Ruiz, accurately reflects the services(s) I performe (more content not included)... Normal [facility] Comment on above: Result Comment: Elec tronically Signed By: Sancho LEE MD\.br\Date and Time Signed: 04/17/23 10:33 EST\.br\Electronically Co-Signed By: Jie Ruiz\.br\Date and Time Co-Signed: 04/17/23 10:27 EST\.br\Electronically Co-Signed By: Jie Ruiz\.br\Date and Time Co-Signed: 04/17/23 10:27 EST\.br\Electronically Co-Signed By: Jie Ruiz\.br\Date and Time Co-Signed: 04/17/23 10:29 EST XR wrist RT min 3V*on 2022 XR wrist RT min 3V* [facility] [address] [place] [address] XRay Report Signed Patient: Sebastian Diego MR#: [id number] : 1945 Acct:[id number] Age/Sex: 77 / M ADM Date: 04/17/23 [...] Hugh Gates M.D.04/17/2023 5:21 PM Dictation Location: [place] [address] Transcribed By: [facility] 04/17/231720 Dictated By: Hugh Gates DO 04/17/231717 Signed By: 04/17/23 172 Normal [facility] Lab Reportson 04-14-2023 Lab Reports [id number]#1.00TIFF Normal [facility] Lab Reports [id number]#1.00TIFF Normal [facility] Alanine aminotransferase [En zymatic activity/volume] in Serum or PlasmaOrdered By: Linda Rodriguez on 04-13-2023 ALT [Catalytic activity/Vol] 8 U/L Normal 7-52 [facility] Comment on above: Performed By: #### C BC, CMP #### [address] Albumin [Mass/volume] in Ser um or Plasma by Bromocresol green (BCG) dye binding methoOrdered By: Linda Rodriguez on 04-13-2023 Albumin BCG dye [Mass/Vol] 3.4 g/dL 3.5-5.7 [facility] Alkaline phosphatase [Enzyma tic activity/volume] in Serum or PlasmaOrdered By: Linda Rodriguez on 04-13-2023 ALP [Catalytic activity/Vol] 152 U/L High 34-104 [facility] Comment on above: Result Comment: PERF ORMED BY: [place] [address] PATHOLOGIST TOOL DESIGN DRAFTSPERSON NOAH PINEDA M.D. Performed By: #### C BC, CMP #### [address] Aspartate aminotransferase [ Enzymatic activity/volume] in Serum or PlasmaOrdered By: Linda Rodriguez on 04-13-2023 AST [Catalytic activity/Vol] 13 U/L Normal 13-39 [facility] Comment on above: Performed By: #### C BC, CMP #### [address] Automated basophil %Ordered By: Linda Rodriguez on 04-13-2023 Basophils/100 WBC (Bld) 0.9 % Normal . [facility] Comment on above: Performed By: #### C BC, CMP #### [address] Automated basophil countOrde red By: Linda Rodriguez on 04-13-2023 Basophils (Bld) [#/Vol] 0.1 10*3/uL Normal 0.0-0.2 [facility] Comment on above: Result Comment: PERF ORMED BY: [place] [address] PATHOLOGIST TOOL DESIGN DRAFTSPERSON NOAH PINEDA M.D. Performed By: #### C BC, CMP #### [address] Automated blood monocyte cou ntOrdered By: Linda Rodriguez on 04-13-2023 Monocytes (Bld) [#/Vol] 0.5 10*3/uL Normal 0.0-0.8 [facility] Comment on above: Performed By: #### C BC, CMP #### [address] Automated eosinophil %Ordere d By: Linda Rodriguez on 04-13-2023 Eosinophils/100 WBC (Bld) 4.9 % Normal . [facility] Comment on above: Performed By: #### C BC, CMP #### [address] [place] [address] [place] Automated eosinophil countOr dered By: Linda Rodriguez on 04-13-2023 Eosinophils (Bld) [#/Vol] 0.3 10*3/uL Normal 0.0-0.45 [facility] Comment on above: Performed By: #### C BC, CMP #### [address] Automated erythrocytes count in urine sediment (number/area)Ordered By: Linda Rodriguez on 04-13-2023 RBC Auto (Urine sed) [#/Area] 5-9 [HPF] 0-4 [facility] Automated leukocytes count i n urine sediment (number/area)Ordered By: Linda Rodriguez on 04-13-2023 WBC Auto (Urine sed) [#/Area] Innumerable [HPF] 0-4 [facility] Automated monocyte %Ordered By: Linda Rodriguez on 04-13-2023 Monocytes/100 WBC (Bld) 7.1 % Normal . [facility] Comment on above: Performed By: #### C BC, CMP #### [address] Automated neutrophil %Ordere d By: Linda Rodriguez on 04-13-2023 Neutrophils/100 WBC (Bld) 67.3 % Normal . [facility] Comment on above: Performed By: #### C BC, CMP #### [address] Automated urine color determ inationOrdered By: Linda Rodriguez on 04-13-2023 Color (U) Yellow Normal Yellow [facility] Comment on above: Order Comment: Name Collection Type:: Clean-Voided Midstream Performed By: #### C UU, ADDONUAPLUS #### [address] Bilirubin Test strip Ql (U)O rdered By: Linda Rodriguez on 04-13-2023 Bilirubin Ql (U) Negative Negative [facility] Bilirubin.total [Mass/volume ] in Serum or PlasmaOrdered By: Linda Rodriugez on 04-13-2023 Bilirubin [Mass/Vol] 1.0 mg/dL Normal 0.3-1.[address] [facility] Comment on above: Performed By: #### C BC, CMP #### [address] Calcium [Mass/volume] in Ser um or PlasmaOrdered By: Linda Rodriguez on 04-13-2023 Calcium [Mass/Vol] 8.9 mg/dL Normal 8.6-10.3 [facility] Comment on above: Performed By: #### C BC, CMP #### [address] Carbon dioxide, total [Moles /volume] in Serum or PlasmaOrdered By: Linda Rodriguez on 04-13-2023 CO2 [Moles/Vol] 28.7 mmol/L Normal 21.0-31.0 [facility] Comment on above: Performed By: #### C BC, CMP #### [place] [id number] [place] Chloride [Moles/volume] in S colleen or PlasmaOrdered By: Linda Rodriguez on 04-13-2023 Chloride [Moles/Vol] 106 mmol/L Normal 98-[address] [facility] Comment on above: Performed By: #### C BC, CMP #### [address] Complete Blood Count Auto Di ffon 04-13-2023 Mean Corpuscular HGB Conc 34.7 g/dL Normal 32.5-35.6 [facility] Comment on above: Performed By: #### C BC, CMP #### [address] NRBC% 0.1 /100{WBC} Normal 0-0.5 [facility] Comment on above: Performed By: #### C BC, CMP #### [address] Comprehensive Metabolic Pane zack 04-13-2023 Albumin [Mass/Vol] 3.4 g/dL Low 3.5-5.7 [facility] Comment on above: Performed By: #### C BC, CMP #### [facility] [address] [place] [address] [place] GFR/1.73 sq M.predicted MDRD (S/P/Bld) [Vol rate/Area] mL/min/{1.73_m2} Normal [facility] Comment on above: Performed By: #### C BC, CMP #### [facility] [address] Creatinine [Mass/volume] in Serum or PlasmaOrdered By: Linda Rodriguez on 04-13-2023 Creatinine [Mass/Vol] 1.04 mg/dL Normal 0.70-1.30 [facility] Comment on above: Performed By: #### C BC, CMP #### [place] [id number] [place] Dipstick and Microscopicon 1 06-14-2022 Appearance (U) Turbid Critically abnormal Clear [facility] Comment on above: Order Comment: Name Collection Type:: Clean-Voided Midstream Performed By: #### C UU, ADDONUAPLUS #### [place] [id number] [place] Bacteria,Urine 4+ High None Seen [facility] Comment on above: Order Comment: Name Collection Type:: Clean-Voided Midstream Performed By: #### C UU, ADDONUAPLUS #### [place] [id number] [place] Bilirubin,Urine Negative Normal Negative [facility] Comment on above: Order Comment: Name Collection Type:: Clean-Voided Midstream Performed By: #### C UU, ADDONUAPLUS #### [facility] [address] [place] [id number] [place] Glucose Ql (U) Normal Normal Normal [facility] Comment on above: Order Comment: Name Collection Type:: Clean-Voided Midstream Performed By: #### C UU, ADDONUAPLUS #### [facility] [address] [place] [id number] [place] Hyaline Casts,Urine 0-8 Normal 0-8 [facility] Comment on above: Order Comment: Name Collection Type:: Clean-Voided Midstream Performed By: #### C UU, ADDONUAPLUS #### [address] Ketones Ql (U) Negative Normal Negative [facility] Comment on above: Order Comment: Name Collection Type:: Clean-Voided Midstream Performed By: #### C UU, ADDONUAPLUS #### [address] Leukocyte esterase Test strip Ql (U) 4+ High Negative [facility] Comment on above: Order Comment: Name Collection Type:: Clean-Voided Midstream Performed By: #### C UU, ADDONUAPLUS #### [address] Nitrite,Urine Positive High Negative [facility] Comment on above: Order Comment: Name Collection Type:: Clean-Voided Midstream Performed By: #### C UU, ADDONUAPLUS #### [address] Occult Blood,Urine 3+ High Negative [facility] Comment on above: Order Comment: Name Collection Type:: Clean-Voided Midstream Result Comment: PERF ORMED BY: [place] [address] PATHOLOGIST TOOL DESIGN DRAFTSPERSON NOAH PINEDA M.D. Performed By: #### C UU, ADDONUAPLUS #### [place] [id number] [place] RBC,Urine 5-9 High 0-4 [facility] Comment on above: Order Comment: Name Collection Type:: Clean-Voided Midstream Performed By: #### C UU, ADDONUAPLUS #### [place] [id number] [place] Specificy [place],Urine 1.018 Normal 1.001-1.030 [facility] Comment on above: Order Comment: Name Collection Type:: Clean-Voided Midstream Performed By: #### C UU, ADDONUAPLUS #### [address] Squamous Epithelial Cell,Urine 0-1 Normal 0-2 [facility] Comment on above: Order Comment: Name Collection Type:: Clean-Voided Midstream Performed By: #### C UU, ADDONUAPLUS #### [address] Triple Phosphate Crystal,Urine 3+ Normal [facility] Comment on above: Order Comment: Name Collection Type:: Clean-Voided Midstream Performed By: #### C UU, ADDONUAPLUS #### [address] Urobilinogen,Urine Normal Normal Normal [facility] Comment on above: Order Comment: Name Collection Type:: Clean-Voided Midstream Performed By: #### C UU, ADDONUAPLUS #### [address] WBC,Urine Innumerable High 0-4 [facility] Comment on above: Order Comment: Name Collection Type:: Clean-Voided Midstream Performed By: #### C UU, ADDONUAPLUS #### [address] Yeast,Urine None Seen Normal None Seen [facility] Comment on above: Order Comment: Name Collection Type:: Clean-Voided Midstream Result Comment: PERF ORMED BY: [place] [address] PATHOLOGIST TOOL DESIGN DRAFTSPERSON NOAH IPNEDA M.D. Performed By: #### C UU, ADDONUAPLUS #### [address] Erythrocyte distribution wid th [Ratio] by Automated countOrdered By: Linda Rodriguez on 04-13-2023 Erythrocyte distribution width (RBC) [Ratio] 13.9 % Normal 12.0-14.8 [facility] Comment on above: Performed By: #### C BC, CMP #### [address] Erythrocytes [#/volume] in B lood by Automated countOrdered By: Linda Rodriguez on 04-13-2023 RBC (Bld) [#/Vol] 4.41 10*6/uL Normal 3.90-5.60 [facility] Comment on above: Performed By: #### C ROLO, CMP #### [address] Glucose [Mass/volume] in Ser um or PlasmaOrdered By: Linda Rodriguez on 04-13-2023 Glucose [Mass/Vol] 101 mg/dL High 70-100 [facility] Comment on above: ADA recommended refe rence rangeRandom Glucose Reference Range is dependent on time and content of last meal. Glucose of more than 200 mg/dL in a nonstressed, ambulatory subject supports the diagnosis of Diabetes Mellitus. Result Comment: [place] om Glucose Reference Range is dependent on time and content of last meal. Glucose of more than 200 mg/dL in a nonstressed, ambulatory subject supports the diagnosis of Diabetes Mellitus. ADA recommended reference range Performed By: #### C ROLO, CMP #### [address] Hematocrit [Volume Fraction] of Blood by Automated countOrdered By: Linda Rodriguez on 04-13-2023 Hematocrit (Bld) [Volume fraction] 40.7 % Normal 38.8-50.0 [facility] Comment on above: Performed By: #### C ROLO, CMP #### [address] Hemoglobin [Mass/volume] in BloodOrdered By: Linda Rodriguez on 04-13-2023 Hemoglobin (Bld) [Mass/Vol] 14.1 g/dL Normal 13.0-17.0 [facility] Comment on above: Performed By: #### C ROLO, CMP #### [address] Ketones Auto test strip (U) [Mass/Vol]Ordered By: Linda Rodriguez on 04-13-2023 Ketones (U) [Mass/Vol] Negative Negative [facility] - UrinalysisOrder ed By: Linda Rodriguez on 04-13-2023 Hyaline casts LM Ql (Urine sed) 0-8 [LPF] 0-8 [facility] Leukocytes [#/volume] correc teressa for nucleated erythrocytes in Blood by Automated counOrdered By: Linda Rodriguez on 04-13-2023 WBC corrected for nucl RBC Auto (Bld) [#/Vol] 6.9 10*3/uL 4.1-10.5 [facility] Leukocytes [#/volume] in Blo od by Automated countOrdered By: Linda Rodriguez on 04-13-2023 WBC (Bld) [#/Vol] 6.9 10*3/uL Normal 4.1-10.5 [facility] Comment on above: Performed By: #### C ROLO, CMP #### [address] Lymphocytes [#/volume] in Bl ood by Automated countOrdered By: Linda Rodriguez on 04-13-2023 Lymphocytes (Bld) [#/Vol] 1.4 10*3/uL Normal 1.00-4.8 [facility] Comment on above: Performed By: #### C ROLO, CMP #### [place] [id number] [place] Lymphocytes/100 leukocytes i n Blood by Automated countOrdered By: Linda Rodriguez on 04-13-2023 Lymphocytes/100 WBC (Bld) 19.8 % Normal . [facility] Comment on above: Performed By: #### C ORLO, CMP #### [place] [id number] [place] MCH [Entitic mass] by Automa teressa countOrdered By: Linda Rodrgiuez on 04-13-2023 MCH (RBC) [Entitic mass] 32.0 pg Normal 27.5-35.2 [facility] Comment on above: Performed By: #### C BC, CMP #### [address] MCHC Auto (RBC) [Mass/Vol]Or dered By: Linda Rodriguez on 04-13-2023 MCHC (RBC) [Mass/Vol] 34.7 g/dL 32.5-35.6 [facility] MCV [Entitic volume] by Auto mated countOrdered By: Linda Rodriguez on 04-13-2023 MCV (RBC) [Entitic vol] 92.2 fL Normal 83.5-101 F [facility] Comment on above: Performed By: #### C ROLO, CMP #### [address] Magnesium ammonium phosphate crystal detectionOrdered By: Linda Rodriguez on 04-13-2023 Triple phosphate crystals LM Ql (Urine sed) 3+ [HPF] [facility] Neutrophils [#/volume] in Bl ood by Automated countOrdered By: Linda Rodriguez on 04-13-2023 Neutrophils (Bld) [#/Vol] 4.7 10*3/uL Normal 1.8-7.7 [facility] Comment on above: Performed By: #### C ROLO, CMP #### [address] Nitrite Test strip Ql (U)Ord ered By: Linda Rodriguez on 04-13-2023 Nitrite Ql (U) Positive Negative [facility] No Panel InformationOrdered By: Linda Rodriguez on 04-13-2023 Estimated GFR (CKD-EPI) > 60.0 mL/Min [facility] Creatinine Clearance (Chem N/A [facility] Nucleated erythrocytes [Pres ence] in Blood by Automated countOrdered By: Linda Rodriguez on 04-13-2023 Nucleated RBC Auto Ql (Bld) 0.1 /100{WBC} 0-0.5 [facility] Platelet mean volume [Entiti c volume] in Blood by Automated countOrdered By: Linda Rodriguez on 04-13-2023 Platelet mean volume (Bld) [Entitic vol] 8.2 fL Normal 6.6-10.1 [facility] Comment on above: Performed By: #### C ROLO, CMP #### [address] Platelets [#/volume] in Bloo d by Automated countOrdered By: Linda Rodriguez on 04-13-2023 Platelets (Bld) [#/Vol] 248 10*3/uL Normal 150-450 [facility] Comment on above: Performed By: #### C BC, CMP #### [facility] [address] [place] [address] Potassium [Moles/volume] in Serum or PlasmaOrdered By: Linda Rodriguez on 04-13-2023 Potassium [Moles/Vol] 3.1 mmol/L Low 3.5-5.1 [facility] Comment on above: Performed By: #### C BC, CMP #### [address] Protein [Mass/volume] in Ser um or PlasmaOrdered By: Linda Rodriguez on 04-13-2023 Protein [Mass/Vol] 6.1 g/dL Low 6.4-8.9 [facility] Comment on above: Performed By: #### C BC, CMP #### [address] Serum globulin measurement b y calculation (mass/volume)Ordered By: Linda Rodriguez on 04-13-2023 Globulin (S) [Mass/Vol] 2.7 g/dL Normal [facility] Comment on above: Performed By: #### C BC, CMP #### [address] Serum or plasma albumin/glob ulin mass ratioOrdered By: Linda Rodriguez on 04-13-2023 Albumin/Globulin [Mass ratio] 1.3 {ratio} Normal [facility] Comment on above: Performed By: #### C BC, CMP #### [address] Serum or plasma anion gap de terminationOrdered By: Linda Rodriguez on 04-13-2023 Anion gap [Moles/Vol] 11.4 mmol/L Normal 6.0-15.0 [facility] Comment on above: Performed By: #### C BC, CMP #### [address] Sodium [Moles/volume] in Ser um or PlasmaOrdered By: Linda Rodriguez on 04-13-2023 Sodium [Moles/Vol] 143 mmol/L Normal 136-145 [facility] Comment on above: Performed By: #### [place] SETH, CMP #### [facility] [address] Specific gravity Auto test s trip (U) [Rel density]Ordered By: Linda Michael on 04-13-2023 Specific gravity (U) [Rel density] 1.018 1.001-1.030 [facility] Squamous epithelial cells de tection in urine sediment by light microscopyOrdered By: Linda Michael on 04-13-2023 Epithelial cells.squamous LM Ql (Urine sed) 0-1 [HPF] 0-2 [facility] Urea nitrogen [Mass/volume] in Serum or PlasmaOrdered By: Linda Michael on 04-13-2023 Urea nitrogen [Mass/Vol] 13 mg/dL Normal 7-25 [facility] Comment on above: Performed By: #### [place] SETH, CMP #### [address] Urine Cultureon 04-13-2023 Bacteria identified Cx Nom (U) ORGANISM: Proteus vulgaris group (O:PROVULGRP) [place] Count >100,000 ORGANISM: Providencia rettgeri (O:PRORET) [place] Count 75,000 Aerobic BANG Charge (NMIC56) ------ [...] RESISTANT TO ALL B-LACTAM DRUGS. PERFORMED BY: [place] [address] PATHOLOGIST TOOL DESIGN DRAFTSPERSON NOAH PINEDA M.D. Normal [facility] Comment on above: Performed By: #### C UU, ADDONUAPLUS #### [address] Urine bacteria detection by automated methodOrdered By: Linda Rodriguez on 04-13-2023 Bacteria Auto Ql (U) 4+ None Seen [facility] Urine clarity by refractomet ry automatedOrdered By: Linda Rodriguez on 04-13-2023 Clarity Refractometry automated (U) Turbid Clear [facility] Urine culture routineOrdered By: Linda Rodriguez on 04-13-2023 Bacteria identified Cx Nom (U) Proteus vulgaris group [facility] Bacteria identified Cx Nom (U) Providencia rettgeri [facility] Urine glucose measurement by automated test strip (mass/volume)Ordered By: Linda Rodriguez on 04-13-2023 Glucose Auto test strip (U) [Mass/Vol] Normal mg/dL Normal [facility] Urine hemoglobin detection b y automated test stripOrdered By: Linda Rodriguez on 04-13-2023 Hemoglobin Auto test strip Ql (U) 3+ Negative [facility] Urine leukocyte esterase det ection by automated test stripOrdered By: Linda Rodriguez on 04-13-2023 Leukocyte esterase Auto test strip Ql (U) 4+ Negative [facility] Urine pH measurement by auto mated test stripOrdered By: Linda Rodriguez on 04-13-2023 pH (U) [pH] Normal 5.0-9.0 [facility] Comment on above: Order Comment: Name Collection Type:: Clean-Voided Midstream Performed By: #### C UU, ADDONUAPLUS #### [facility] [address] [place] [address] Urine protein measurement by automated test strip (mass/volume)Ordered By: Linda Rodriguez on 04-13-2023 Protein (U) [Mass/Vol] 300 mg/dL High Negative [facility] Comment on above: Order Comment: Name Collection Type:: Clean-Voided Midstream Performed By: #### C UU, ADDONUAPLUS #### [facility] [address] [place] [address] Urobilinogen Auto test strip (U) [Mass/Vol]Ordered By: Linda Rodriguez on 04-13-2023 Urobilinogen (U) [Mass/Vol] Normal mg/dL Normal [facility] Yeast detection in urine sed iment by light microscopyOrdered By: Linda Rodriguez on 04-13-2023 Yeast LM Ql (Urine sed) None seen [HPF] None Se en [facility] Consultation Noteon 03-30-20 Consultation Note [id number] FA#1.00TIFF Normal [facility] NM db perf SPECT rest stron 03-24-2023 NM db perf SPECT rest str [facility] Main [address] [place] [address] Nuclear Medicine Report Signed Patient: Sebastian Diego MR#: [id number] 868 : 1945 Acct:[id number] Age/Sex: 77 / M ADM Date: 03/24/23 Loc: [place] Room: Type: [facility] Attending Dr: Glo Singleton MD Copies to: [...] 6:37 PM Dictation Location: [id number] Transcribed By: [facility] 03/24/231836 Dictated By: Glo Singleton MD 03/24/231832 Signed By: 03/24/231836 Normal [facility] RAD - CT Reporton 03-13-2023 RAD - CT Report [id number] FF#1.00TIFF Normal [facility] RAD - Ultrasound Reporton RAD - Ultrasound Report [id number] AE#1.00TIFF Normal [facility] US arterial duplex LE RTon 1 05-11-2022 US arterial duplex LE RT [facility] Main [place] [id number] Ultrasound Report Signed Patient: Sebastian Diego MR#: [id number] 868 : 1945 Acct:[id number] Age/Sex: 77 / M ADM Date: 03/11/23 Loc: [facility] Room: Type[facility] Attending Dr: Linda Rodriguez MD Ordering Provider: [...] Linda Rodriguez MD03/11/2023 12:17 PM Dictation Location: [place] [address] Tech: Osiris Leal Transcribed By: SERGE 03/11/23 121 Dictated By: Linda Rodriguez MD 03/11/231215 Signed By: 03/11/23 121 Normal [facility] CT angio abdomen pelvison CT angio abdomen pelvis [facility] Main [place] [id number] CT Scan Report Signed Patient: Sebastian Diego MR#: [id number] 868 : 1945 Acct:[id number] Age/Sex: 77 / M ADM Date: 02/26/23 Loc: [place] Room: Type: [facility] Attending Dr: Linda Rodriguez MD Copies to: [...] nephrolithiasis. Impression dictated by: Jeff Sykes Jr., DVita.02/26/2023 10:51 AM Dictation Location: [place] [address] Transcribed By: [facility] 02/26/23 1051 Dictated By: Jeff Sykes Jr DO 02/26/23 1036 Signed By: 02/26/23 1051 Normal [facility] Creatinine (Bld) [Mass/Vol]O rdered By: Linda Rodriguez on 02-26-2023 Creatinine [Mass/Vol] 1.1 mg/dL 0.6-1.3 [facility] Comment on above: ER/ESD physician is notified/shown all ISTAT results.Critical values may be confirmed by laboratory testing ifdeemed necessary by ER attending doctor. Consultation Noteon 02-26-20 23 Consultation Note [id number] 05#1.00TIFF Normal [facility] Physician Referralon 023 Physician Referral [id number] 9E#1.00TIFF Normal [facility] RAD - MRI Reporton 3 RAD - MRI Report [id number] D7#1.00TIFF Normal [facility] ISTAT XRay CREon 02-10-2023 ISTAT GFR > 60.0 Normal [facility] Comment on above: Result Comment: PERF ORMED BY: [place] [address] PATHOLOGIST TOOL DESIGN DRAFTSPERSON NOAH PINEDA M.D. Performed By: #### I SCRE #### [address] MR prostate wo/w conon 02-10 MR prostate wo/w con [facility] [address] [place] [address] MRI Report Signed Patient: Sebastian Diego MR#: [id number] 868 : 1945 Acct:[id number] Age/Sex: 77 / M ADM Date: 02/10/23 Loc: Room: Type: [facility] Attending Dr: Sancho Lee MD Copies to: [...] ultrasound. Impression dictated by: Jeff Sykes Jr., D.O.02/10/2023 3:47 PM Dictation Location: [place] [address] Transcribed By: PWS 02/10/23 1547 Dictated By: Jeff ySkes Jr, DO 02/10/23 1534 Signed By: 02/10/23 154 Normal [facility] No Panel InformationOrdered By: Sancho Lee on 02-10-2023 Bedside Estimated GFR (eGFR) > 60.0 [facility] Whole blood creatinine measu rementOrdered By: Sancho Lee on 02-10-2023 Creatinine [Mass/Vol] 1.1 mg/dL Normal 0.6-1.3 [facility] Comment on above: ER/ESD physician is notified/shown all ISTAT results.Critical values may be confirmed by laboratory testing ifdeemed necessary by ER attending doctor. Result Comment: ER/E SD physician is notified/shown all ISTAT results. Critical values may be confirmed by laboratory testing if deemed necessary by ER attending doctor. Performed By: #### I SCRE #### [facility] [address] [place] [address] Ambulatory Visit Summaryon 0 11-21-2022 Ambulatory Visit Summary SEBASTIAN DIEGO :1945 Visit Date:12/02/2018 Ambulatory Visit Instructions Your Diagnosis BPH with urinary obstruction, BPH with urinary obstruction Microscopic hematuria Prostate cancer screening Tests Performed XR Abdomen 1 View -- Results Pending -- Please visit your patient portal for your results or contact your primary care physician. Your Care Team Primary Care Physician - CARMELITA ZAVALA CNP Primary Nurse - Margo DEY, [place] This Is Your Medications List [facility] Prescription (RA VITAMIN D3 2,000 UNIT SFGL) aspirin (aspirin 81 mg Oral EC Tab) atorvastatin (Lipitor 10 mg Tab) clopidogrel (clopidogrel 75 mg Tab) duloxetine (duloxetine 30 mg oral delayed release capsule) ibuprofen (ibuprofen 200 mg oral capsule) levothyroxine (levothyroxine 50 mcg (0.05 mg) Tab) lisinopril (lisinopril 5 mg Tab) metformin (metformin 500 mg Tab) potassium chloride (Potassium Chloride (Ygk-Zpkt-Edi 10) 10 mEq oral tablet, extended release) [...] Mouth Every day Refills: 3 Pickup at [id number] Unchanged aspirin (aspirin 81 mg Oral EC [...] Unchanged metformin (metformin 500 mg Tab) Unchanged [facility] Prescription (RA VITAMIN D3 2,000 UNIT SFGL) 0 Unchanged potassium chloride (Potassium Chloride (Msu-Oecv-Cgh 10) 10 mEq oral tablet, extended release) Unchanged pregabalin (Lyrica 150 mg Cap) By Mouth 2 times a day Pharmacy Information [id number]: [address], [place] [id number] [phone] Allergies beta blockers (Weakness, Vomiting, Dizziness) Problems [...] tract Straining to void Urine frequency Normal [facility] Lab Reportson 11-21-2022 Lab Reports [id number] E9#1.00CD:127 Normal [facility] Patient Educationon 11-22-19 Patient Education Oncology Prostate [...] Where to find more information ? The [place] [employer]: www.cancer.org ? [place] [employer]: www.auanet.org Contact a health care [...] flu (more content not included)... Normal [facility] Urology Office/Clinic Noteon 11-21-2022 Urology [...] Doxycycline 100mg BID x3wks therapy) 11/17/22 - .70 & 19% Reviewed pt's elevated PSA and [...] URL [facility] [address], [place] [address]- Additional Instructions: sched MRI Patient Education Prostate [...] BID metformin 500 mg Tab Potassium Chloride (Znt-Qnkr-Sgs 10) 10 mEq oral tablet, extended release [...] Stroke: Mother (more content not included)... Normal [facility] Comment on above: Result Comment: Elec tronically Signed By: Sancho LEE MD\.br\Date and Time Signed: 11/21/22 10:29 EDT\.br\Electronically Co-Signed By: Zayda Olivares\.br\Date and Time Co-Signed: 11/21/22 10:26 EDT Ambulatory Visit Summaryon 0 09-25-2022 Ambulatory Visit Summary SEBASTIAN DIEGO Cindi :1945 Visit Date:09/22/2022 Ambulatory Visit Instructions Your [...] 500 mg Tab) potassium chloride (Potassium Chloride (Pnx-Inzq-Xcj 10) 10 mEq oral tablet, extended release) [...] with JESUS DEAL, ERNA Vidal When: Where: [facility] [address], [place] [address]- Medications What How Much When Instructions Unchanged [...] or concerns Unchanged potassium chloride (Potassium Chloride (Ude-Juvx-Fsx 10) 10 mEq oral tablet, extended release) [...] been diagnosed w (more content not included)... [facility] C Urineon 09-24-2022 Bacteria identified Cx Nom [...] Locations R1: This test was performed at: [facility], [address] [place] [address], [address] , , [facility] Comment on above: Performed By: #### 2 [id number] ####[facility] [address] [place] [address] Patient Educationon 09-23-19 Patient Education Oncology Prostate Cancer Screening Prostate [...] Where to find more information ? The [place] [employer]: www.cancer.org ? [place] [employer]: www.auanet.org Contact a health care [...] adds flu (more content not included)... Normal [facility] PSA, FREE AND TOTAL RATIOon 08-27-2022 % Free PSA 20.8 % Normal [facility] Comment on above: Result Comment: The [...] men. Performed By: #### P SAFREE #### [facility] [address] [address] [address] Daniel Hahn Prostate specific Ag [Mass/Vol] 13.5 ng/mL Critically high 0.0-4.0 [facility] Comment on above: Result Comment: [place] miller ECLIA methodology. . According to the [place] [employer], Serum PSA should decrease and [...] disease. Performed By: #### P SAFREE #### [facility] [address] [address] [address] Daniel Hahn PSA, Free 2.81 ng/mL Normal N/A [facility] Comment on above: Result Comment: Roch khalida ECLIA methodology. Performed By: #### P SAFREE #### [facility] [address] [address] [address] Daniel Hahn CBC AUTO DIFFon 08-25-2022 BASO # 0.1 103/ul Normal 0.0-0.1 [facility] Comment on above: Performed By: #### C BC #### [facility] [address] [place] [address] Dr. Daniel Hahn Basophils/100 WBC (Bld) 0.6 % Normal 0.2-2.0 [facility] Comment on above: Performed By: #### C BC #### [facility] [address] [place] [address] Dr. Daniel Hahn EO # 0.4 103/ul Normal 0.0-0.7 [facility] Comment on above: Performed By: #### C BC #### [facility] [address] [place] [address] Dr. Daniel Hahn Eosinophils/100 WBC (Bld) 5.6 % Normal 0.9-7.0 [facility] Comment on above: Performed By: #### C BC #### [facility] [address] [place] [address] Dr. Daniel Hahn Erythrocyte distribution width (RBC) [Ratio] 13.7 % Normal 11.0-15.0 [facility] Comment on above: Performed By: #### C BC #### [facility] [address] [place] [address] Dr. Daniel Hahn Hematocrit (Bld) [Volume fraction] 47.0 % Normal 42.0-54.0 [facility] Comment on above: Performed By: #### C BC #### [facility] [address] [place] [address] Dr. Daniel Hahn Hemoglobin (Bld) [Mass/Vol] 15.6 g/dL Normal 14.0-18.0 [facility] Comment on above: Performed By: #### C BC #### [facility] [address] [place] [address] Dr. Daniel Hahn IG # 0.02 10e3/ul Normal 0.00-0.03 [facility] Comment on above: Performed By: #### C BC #### [facility] [address] [place] [address] Dr. Daniel Hahn IG % 0.3 % Normal 0.0-0.5 [facility] Comment on above: Performed By: #### C BC #### [facility] [address] [place] [address] Dr. Daniel Hahn LYMPH # 1.8 103/ul Normal 1.2-3.8 [facility] Comment on above: Performed By: #### C BC #### [facility] [address] [place] [address] Dr. Daniel Hahn Lymphocytes/100 WBC (Bld) 22.8 % Normal 20.5-60.0 [facility] Comment on above: Performed By: #### C BC #### [facility] [address] [place] [address] Dr. Daniel Hahn MANUAL DIFF REQ NO Normal [facility] Comment on above: Performed By: #### C BC #### [facility] [address] [place] [address] Dr. Daniel Hahn MCH (RBC) [Entitic mass] 31.5 pg Normal 25.9-34.0 [facility] Comment on above: Performed By: #### C BC #### [facility] [address] [place] [address] Dr. Daniel Hahn MCHC (RBC) [Mass/Vol] 33.2 g/dL Normal 29.9-35.2 [facility] Comment on above: Performed By: #### C BC #### [facility] [address] [place] [address] Dr. Daniel Hahn MCV (RBC) [Entitic vol] 94.8 fL Critically high 80.0-94 .0 [facility] Comment on above: Performed By: #### C BC #### [facility] [address] [place] [address] Dr. Daniel Hahn MONO # 0.6 103/ul Normal 0.3-0.8 [facility] Comment on above: Performed By: #### C BC #### [facility] [address] [place] [address] Dr. Daniel Hahn Monocytes/100 WBC (Bld) 7.9 % Normal 1.7-12.0 [facility] Comment on above: Performed By: #### C BC #### [facility] [address] [place] [address] Dr. Daniel Hahn NEUT # 4.9 103/ul Normal 1.4-6.5 [facility] Comment on above: Performed By: #### C BC #### [facility] [address] [place] [address] Dr. Daniel Hahn Neutrophils/100 WBC (Bld) 62.8 % Normal 43.0-75.0 [facility] Comment on above: Performed By: #### C BC #### [facility] [address] [place] [address] Dr. Daniel Hahn Platelet mean volume (Bld) [Entitic vol] 9.9 fL Normal 9.5-13.5 [facility] Comment on above: Performed By: #### C BC #### [facility] [address] [place] [address] Dr. Daniel Hahn PLT 199 103/ul Normal 150-450 [facility] Comment on above: Performed By: #### C BC #### [facility] [address] [place] [address] Dr. Daniel Hahn RBC 4.96 106/ul Normal 4.70-6.10 [facility] Comment on above: Performed By: #### C BC #### [facility] [address] [place] [address] Dr. Daniel Hahn WBC 7.7 103/ul Normal 4.0-11.0 [facility] Comment on above: Performed By: #### C BC #### [facility] [address] [place] [address] Dr. Daniel Hahn FREE T4on 08-25-2022 Free T4 [Mass/Vol] 0.94 ng/dL Normal 0.76-1.46 [facility] Comment on above: Performed By: #### P SAFREE #### [facility] [address] [place] [address] Dr. Daniel Hahn GLYCOHEMOGLOBIN A1Con 2022 ADA RECOMMENDATION SEE BELOW Normal [facility] Comment on above: Result Comment: ADA RECOMMENDED LIMIT 4.0 - 6.0 ADA THERAPEUTIC TARGET < 7.0 ACTION SUGGESTED > 7.0 Performed By: #### A 1C #### [facility] [address] [place] [address] Dr. Daniel Hahn Glucose [Mass/Vol] 126 mg/dL Normal [facility] Comment on above: Performed By: #### A 1C #### [facility] [address] [place] [address] Dr. Daniel Hahn HbA1c (Bld) [Mass fraction] 6.0 % Normal 4.5-6.2 [facility] Comment on above: Performed By: #### A 1C #### [facility] [address] [place] [address] Dr. Daniel Hahn LIPID PROFILEon 08-25-2022 CHOL-HDL RATIO NORM SEE BELOW Normal [facility] Comment on above: Result Comment: 3.3 - 4.4 LOW RISK 4.4 - 7.1 AVERAGE RISK 7.1 - 11.0 MODERATE RISK >11.0 HIGH RISK Performed By: #### B MP, LIVER #### [facility] [address] [place] [address] Dr. Daniel Hahn Cholesterol [Mass/Vol] 180 mg/dL Normal <=200 [facility] Comment on above: Performed By: #### B MP, LIVER #### [facility] [address] [place] [address] Dr. Daniel Hahn Cholesterol in HDL [Mass/Vol] 36 mg/dL Critically low 40-60 [facility] Comment on above: Performed By: #### B MP, LIVER #### [facility] [address] [place] [address] Dr. Daniel Hahn Cholesterol in LDL [Mass/Vol] 85.6 mg/dL Normal [facility] Comment on above: Performed By: #### B MP, LIVER #### [facility] [address] [place] [address] Dr. Daniel Hahn Cholesterol.total/Choles terol in HDL [Mass ratio] 5.0 {ratio} Normal [facility] Comment on above: Performed By: #### B MP, LIVER #### [facility] [address] [place] [address] Dr. Daniel Hahn HDL NORMAL > or = 60 mg/dl - LOW CARDIOVASCULAR RISK <40 mg/dl - HIGH CARDIOVASCULAR RISK Normal [facility] Comment on above: Performed By: #### B MP, LIVER #### [facility] [address] [place] [address] Dr. Daniel Hahn LDL CALC NORMAL SEE BELOW Normal [facility] Comment on above: Result Comment: <100 mg/dl OPTIMAL 100 - 129 mg/dl NEAR OR ABOVE OPTIMAL 130 - 159 mg/dl BORDERLINE HIGH 160 - 189 mg/dl HIGH >190 mg/dl VERY HIGH Performed By: #### B MP, LIVER #### [facility] [address] [place] [address] Dr. Daniel Hahn Triglyceride [Mass/Vol] 292 mg/dL Critically high <=150 [facility] Comment on above: Performed By: #### B MP, LIVER #### [facility] [address] [place] [address] Dr. Daniel Hahn VLDL CALC 58.4 mg/dL Normal [facility] Comment on above: Performed By: #### B MP, LIVER #### [facility] [address] [place] [address] Dr. Daniel Hahn PROF 14(COMP METB)on 023 Albumin [Mass/Vol] 3.3 g/dL Critically low 3.4-5.0 [facility] Comment on above: Performed By: #### B MP, LIVER #### [facility] [address] [place] [address] Dr. Daniel Hahn Albumin/Globulin [Mass ratio] 1.0 {ratio} Normal [facility] Comment on above: Performed By: #### B MP, LIVER #### [facility] [address] [place] [address] Dr. Daniel Hahn ALP [Catalytic activity/Vol] 108 U/L Normal 46-116 [facility] Comment on above: Performed By: #### B MP, LIVER #### [facility] [address] [place] [address] Dr. Daniel Hahn ALT [Catalytic activity/Vol] 10 U/L Critically low 16-63 [facility] Comment on above: Performed By: #### B MP, LIVER #### [facility] [address] [place] [address] Dr. Daniel Hahn Anion gap [Moles/Vol] 9.1 mmol/L Normal [facility] Comment on above: Performed By: #### B MP, LIVER #### [facility] [address] [place] [address] [address] Daniel Hahn AST [Catalytic activity/Vol] 12 U/L Critically low 15-37 [facility] Comment on above: Performed By: #### B MP, LIVER #### [facility] [address] [place] [address] Dr. Daniel Hahn Bilirubin [Mass/Vol] 0.6 mg/dL Normal 0.2-1.0 [facility] Comment on above: Performed By: #### B MP, LIVER #### [facility] [address] [place] [address] Dr. Daniel Hahn Calcium [Mass/Vol] 9.1 mg/dL Normal 8.5-10.1 [facility] Comment on above: Performed By: #### B MP, LIVER #### [facility] [address] [place] [address] Dr. Daniel Hahn Chloride [Moles/Vol] 105 mmol/L Normal 98-107 [facility] Comment on above: Performed By: #### B MP, LIVER #### [facility] [address] [place] [address] Dr. Daniel Hahn CO2 [Moles/Vol] 28.7 mmol/L Normal 21.0-32.0 [facility] Comment on above: Performed By: #### B MP, LIVER #### [facility] [address] [place] [address] Dr. Daniel Hahn Creatinine [Mass/Vol] 1.20 mg/dL Normal 0.70-1.30 [facility] Comment on above: Performed By: #### B MP, LIVER #### [facility] [address] [place] [address] [address] Daniel Hahn EGFR-AF ENGLISH >60 Normal >=60 [facility] Comment on above: Performed By: #### B MP, LIVER #### [facility] [address] [place] [address] [address] Daniel Hahn EGFR-NON AF ENGLISH 59 mL/min/1.73m2 Critically low >=60 [facility] Comment on above: Performed By: #### B MP, LIVER #### [facility] [address] [place] [address] [address] Daniel Hahn Globulin (S) [Mass/Vol] 3.4 g/dL Normal [facility] Comment on above: Performed By: #### B MP, LIVER #### [facility] [address] [place] [address] Dr. Daniel Hahn Glucose [Mass/Vol] 115 mg/dL Critically high 74-106 [facility] Comment on above: Performed By: #### B MP, LIVER #### [facility] [address] [place] [address] Dr. Daniel Hahn Potassium [Moles/Vol] 3.8 mmol/L Normal 3.5-5.1 [facility] Comment on above: Performed By: #### B MP, LIVER #### [facility] [address] [place] [address] Dr. Daniel Hahn Protein [Mass/Vol] 6.7 g/dL Normal 6.4-8.2 [facility] Comment on above: Performed By: #### B MP, LIVER #### [facility] [address] [place] [address] Dr. Daniel Hahn Sodium [Moles/Vol] 139 mmol/L Normal 136-145 [facility] Comment on above: Performed By: #### B MP, LIVER #### [facility] [address] [place] [address] Dr. Daniel Hahn Urea nitrogen [Mass/Vol] 17.0 mg/dL Normal 7.0-18.0 [facility] Comment on above: Performed By: #### B MP, LIVER #### [facility] [address] [place] [address] Dr. Daniel Hahn Urea nitrogen/Creatinine [Mass ratio] 14.2 mg/mg Normal [facility] Comment on above: Performed By: #### B MP, LIVER #### [facility] [address] [place] [address] Dr. Daniel Hahn TSHon 08-25-2022 TSH 0.357 uIU/mL Critically low 0.358-3.740 [facility] Comment on above: Performed By: #### B MP, LIVER #### [facility] [address] [place] [address] Dr. Daniel Hahn VITAMIN D 25 OHon 08-25-2022 VIT D 25-OH 58.3 ng/mL Normal [facility] Comment on above: Performed By: #### P SAFREE #### [facility] [address] [place] [address] Dr. Daniel Hahn VIT D RANGES SEE BELOW Normal [facility] Comment on above: Result Comment: <20 ng/mL Vit D deficient 20 - <30 ng/mL Vit D insufficient 30 - 100 ng/mL Vit D sufficient >100 ng/mL Potential Toxicity Performed By: #### P SAFREE #### [facility] [address] [place] [address] Dr. Daniel Hahn CARDIAC EWELINA 3-6on 2 CK [Catalytic activity/Vol] 212 U/L Normal 39-308 [facility] Comment on above: Performed By: #### B IGNACIO, TSH #### [facility] [address] [place] [address] Dr. Daniel Hahn CK.MB [Mass/Vol] 3.01 ng/mL Normal <=3.60 [facility] Comment on above: Performed By: #### B MP, TSH #### [facility] [address] [place] [address] Dr. Daniel Hahn HSTROP 19.0 pg/mL Normal 4.0-76.1 [facility] Comment on above: Result Comment: CUT- OFF POINTS HAVE BEEN ESTABLISHED BASED ON THE FOURTH UNIVERSAL DEFINITIONS OF MYOCARDIAL INFARCTION. THE UPPER REFERENCE LIMIT (URL) OF TROPONIN, DEFINED THE 99TH PERCENTILE OF cTnI DISTRIBUTION IN A REFERENCE POPULATION, HAS BEEN CONFIRMED THE DECISION THRESHOLD FOR [place] DIAGNOSIS. Performed By: #### B MP, TSH #### [facility] [facility] [address] [place] [address] Dr. Daniel Hahn CARDIAC EWELINA ADMITon 022 CK [Catalytic activity/Vol] 128 U/L Normal 39-308 [facility] Comment on above: Performed By: #### B MP, TSH #### [facility] [address] [place] [address] Dr. Daniel Hahn CK.MB [Mass/Vol] 2.01 ng/mL Normal <=3.60 [facility] Comment on above: Performed By: #### B MP, TSH #### [facility] [address] [place] [address] Dr. Daniel Hahn HSTROP 36.0 pg/mL Normal 4.0-76.1 [facility] Comment on above: Result Comment: CUT- OFF POINTS HAVE BEEN ESTABLISHED BASED ON THE FOURTH UNIVERSAL DEFINITIONS OF MYOCARDIAL INFARCTION. THE UPPER REFERENCE LIMIT (URL) OF TROPONIN, DEFINED THE 99TH PERCENTILE OF cTnI DISTRIBUTION IN A REFERENCE POPULATION, HAS BEEN CONFIRMED THE DECISION THRESHOLD FOR MT DIAGNOSIS. Performed By: #### B MP, TSH #### [facility] [address] [place] [address] Dr. Daniel Hahn DB 167 ng/mL Critically high 16-96 [facility] Comment on above: Performed By: #### B MP, TSH #### [facility] [address] [place] [address] Dr. Daniel Hahn CK [Catalytic activity/Vol] 159 U/L Normal 39-308 [facility] Comment on above: Performed By: #### B MP, TSH #### [facility] [address] [address] [address] Daniel Hahn CK.MB [Mass/Vol] 2.99 ng/mL Normal <=3.60 [facility] Comment on above: Performed By: #### B MP, TSH #### [facility] [address] [address] [address] Daniel Hahn HSTROP 15.8 pg/mL Normal 4.0-76.1 [facility] Comment on above: Result Comment: CUT- OFF POINTS HAVE BEEN ESTABLISHED BASED ON THE FOURTH UNIVERSAL DEFINITIONS OF MYOCARDIAL INFARCTION. THE UPPER REFERENCE LIMIT (URL) OF TROPONIN, DEFINED THE 99TH PERCENTILE OF cTnI DISTRIBUTION IN A REFERENCE POPULATION, HAS BEEN CONFIRMED THE DECISION THRESHOLD FOR MT DIAGNOSIS. Performed By: #### B MP, TSH #### [facility] [address] [place] [address] Dr. Daniel Hahn DB 307 ng/mL Critically high 16-96 [facility] Comment on above: Performed By: #### B MP, TSH #### [facility] [address] [place] [address] Dr. Daniel Hahn CBC AUTO DIFFon 01-14-2022 BASO # 0.1 103/ul Normal 0.0-0.1 [facility] Comment on above: Performed By: #### B MP, TSH #### [facility] [address] [place] [address] Dr. Daniel Hahn Basophils/100 WBC (Bld) 0.6 % Normal 0.2-2.0 [facility] Comment on above: Performed By: #### B MP, TSH #### [facility] [address] [place] [address] Dr. Daniel Hahn EO # 0.1 103/ul Normal 0.0-0.7 [facility] Comment on above: Performed By: #### B MP, TSH #### [facility] [address] [place] [address] Dr. Daniel Hahn Eosinophils/100 WBC (Bld) 1.1 % Normal 0.9-7.0 [facility] Comment on above: Performed By: #### B MP, TSH #### [facility] [address] [place] [address] Dr. Daniel Hahn Erythrocyte distribution width (RBC) [Ratio] 13.6 % Normal 11.0-15.0 [facility] Comment on above: Performed By: #### B MP, TSH #### [facility] [address] [place] [address] Dr. Daniel Hahn Hematocrit (Bld) [Volume fraction] 43.4 % Normal 42.0-54.0 [facility] Comment on above: Performed By: #### B MP, TSH #### [facility] [address] [place] [address] Dr. Daniel Hahn Hemoglobin (Bld) [Mass/Vol] 14.1 g/dL Normal 14.0-18.0 [facility] Comment on above: Performed By: #### B MP, TSH #### [facility] [address] [place] [address] Dr. Daniel Hahn IG # 0.02 10e3/ul Normal 0.00-0.03 [facility] Comment on above: Performed By: #### B MP, TSH #### [facility] [address] [place] [address] Dr. Daniel Hahn IG % 0.2 % Normal 0.0-0.5 [facility] Comment on above: Performed By: #### B MP, TSH #### [facility] [address] [place] [address] Dr. Daniel Hahn LYMPH # 2.3 103/ul Normal 1.2-3.8 [facility] Comment on above: Performed By: #### B MP, TSH #### [facility] [address] [place] [address] Dr. Daniel Hahn Lymphocytes/100 WBC (Bld) 25.5 % Normal 20.5-60.0 [facility] Comment on above: Performed By: #### B MP, TSH #### [facility] [address] [place] [address] Dr. Daniel Hahn MANUAL DIFF REQ NO Normal [facility] Comment on above: Performed By: #### B MP, TSH #### [facility] [address] [place] [address] Dr. Daniel Hahn MCH (RBC) [Entitic mass] 32.0 pg Normal 25.9-34.0 [facility] Comment on above: Performed By: #### B MP, TSH #### [facility] [address] [place] [address] Dr. Daniel Hahn MCHC (RBC) [Mass/Vol] 32.5 g/dL Normal 29.9-35.2 [facility] Comment on above: Performed By: #### B MP, TSH #### [facility] [address] [place] [address] Dr. Daniel Hahn MCV (RBC) [Entitic vol] 98.4 fL Critically high 80.0-94 .0 [facility] Comment on above: Performed By: #### B MP, TSH #### [facility] [address] [place] [address] Dr. Daniel Hahn MONO # 0.8 103/ul Normal 0.3-0.8 [facility] Comment on above: Performed By: #### B MP, TSH #### [facility] [address] [place] [address] Dr. Daniel Hahn Monocytes/100 WBC (Bld) 8.8 % Normal 1.7-12.0 [facility] Comment on above: Performed By: #### B MP, TSH #### [facility] [address] [place] [address] Dr. Daniel Hahn NEUT # 5.6 103/ul Normal 1.4-6.5 [facility] Comment on above: Performed By: #### B MP, TSH #### [facility] [address] [place] [address] Dr. Daniel Hahn Neutrophils/100 WBC (Bld) 63.8 % Normal 43.0-75.0 [facility] Comment on above: Performed By: #### B MP, TSH #### [facility] [address] [place] [address] Dr. Daniel Hahn Platelet mean volume (Bld) [Entitic vol] 10.0 fL Normal 9.5-13.5 [facility] Comment on above: Performed By: #### B MP, TSH #### [facility] [address] [place] [address] Dr. Daniel Hahn PLT 212 103/ul Normal 150-450 [facility] Comment on above: Performed By: #### B MP, TSH #### [facility] [address] [place] [address] Dr. Daniel Hahn RBC 4.41 106/ul Critically low 4.70-6.10 [facility] Comment on above: Performed By: #### B IGNACIO, TSH #### [facility] [address] [place] [address] Dr. Daniel Hahn WBC 8.8 103/ul Normal 4.0-11.0 [facility] Comment on above: Performed By: #### B IGNACIO, TSH #### [facility] [address] [place] [address] Dr. Daniel Hahn BASO # 0.1 103/ul Normal 0.0-0.1 [facility] Comment on above: Performed By: #### B IGNACIO, TSH #### [facility] [address] [place] [address] Dr. Daniel Hahn Basophils/100 WBC (Bld) 0.6 % Normal 0.2-2.0 [facility] Comment on above: Performed By: #### B IGNACIO, TSH #### [facility] [address] [place] [address] Dr. Daniel Hahn EO # 0.1 103/ul Normal 0.0-0.7 [facility] Comment on above: Performed By: #### B IGNACIO, TSH #### [facility] [address] [place] [address] Dr. Daniel Hahn Eosinophils/100 WBC (Bld) 0.6 % Critically low 0.9-7.0 [facility] Comment on above: Performed By: #### B IGNACIO, TSH #### [facility] [address] [place] [address] Dr. Daniel Hahn Erythrocyte distribution width (RBC) [Ratio] 13.3 % Normal 11.0-15.0 [facility] Comment on above: Performed By: #### B IGNACIO, TSH #### [facility] [address] [place] [address] Dr. Daniel Hahn Hematocrit (Bld) [Volume fraction] 46.4 % Normal 42.0-54.0 [facility] Comment on above: Performed By: #### B IGNACIO, TSH #### [facility] [address] [address] [address] Daniel Hahn Hemoglobin (Bld) [Mass/Vol] 15.0 g/dL Normal 14.0-18.0 [facility] Comment on above: Performed By: #### B IGNACIO, TSH #### [facility] [address] [place] [address] Dr. Daniel Hahn IG # 0.03 10e3/ul Normal 0.00-0.03 [facility] Comment on above: Performed By: #### B IGNACIO, TSH #### [facility] [address] [place] [address] Dr. Daniel Hahn IG % 0.4 % Normal 0.0-0.5 [facility] Comment on above: Performed By: #### B IGNACIO, TSH #### [facility] [address] [place] [address] Dr. Daniel Hahn LYMPH # 1.3 103/ul Normal 1.2-3.8 [facility] Comment on above: Performed By: #### B IGNACIO, TSH #### [facility] [address] [place] [address] Dr. Daniel Hahn Lymphocytes/100 WBC (Bld) 15.6 % Critically low 20.5-60.0 [facility] Comment on above: Performed By: #### B IGNACIO, TSH #### [facility] [address] [place] [address] Dr. Daniel Hahn MANUAL DIFF REQ NO Normal [facility] Comment on above: Performed By: #### B IGNACIO, TSH #### [facility] [address] [place] [address] Dr. Daniel Hahn MCH (RBC) [Entitic mass] 31.7 pg Normal 25.9-34.0 [facility] Comment on above: Performed By: #### B IGNACIO, TSH #### [facility] [address] [place] [address] Dr. Daniel Hahn MCHC (RBC) [Mass/Vol] 32.3 g/dL Normal 29.9-35.2 [facility] Comment on above: Performed By: #### B IGNACIO, TSH #### [facility] [address] [address] [address] Daniel Hahn MCV (RBC) [Entitic vol] 98.1 fL Critically high 80.0-94 .0 [facility] Comment on above: Performed By: #### B MP, TSH #### [facility] [address] [place] [address] Dr. Daniel Hahn MONO # 0.5 103/ul Normal 0.3-0.8 [facility] Comment on above: Performed By: #### B MP, TSH #### [facility] [address] [place] [address] Dr. Daniel Hahn Monocytes/100 WBC (Bld) 6.1 % Normal 1.7-12.0 [facility] Comment on above: Performed By: #### B MP, TSH #### [facility] [address] [place] [address] Dr. Daniel Hahn NEUT # 6.4 103/ul Normal 1.4-6.5 [facility] Comment on above: Performed By: #### B MP, TSH #### [facility] [address] [place] [address] Dr. Daniel Hahn Neutrophils/100 WBC (Bld) 76.7 % Critically high 43.0-75.0 [facility] Comment on above: Performed By: #### B MP, TSH #### [facility] [address] [place] [address] Dr. Daniel Hahn Platelet mean volume (Bld) [Entitic vol] 9.9 fL Normal 9.5-13.5 [facility] Comment on above: Performed By: #### B MP, TSH #### [facility] [address] [place] [address] Dr. Daniel Hahn PLT 247 103/ul Normal 150-450 [facility] Comment on above: Performed By: #### B MP, TSH #### [facility] [address] [place] [address] Dr. Daniel Hahn RBC 4.73 106/ul Normal 4.70-6.10 [facility] Comment on above: Performed By: #### B MP, TSH #### [facility] [address] [place], [place] [address] Dr. Daniel Hahn WBC 8.4 103/ul Normal 4.0-11.0 [facility] Comment on above: Performed By: #### B , [facility] #### [facility] [address] [place], [place] [address] Dr. Daniel Hahn CTA CHEST WO W [...] CARMEN MURDOCK Date: 2022-01-14 02:34 Normal [facility] Covid-19 PCR (CVDTBH)on 01-02 SARS-CoV-2 (COVID-19) RNA LEIGHTON+probe Ql (Unsp spec) Not detected Normal NOT DETECTED [facility] Comment on above: Result Comment: [...] for this test is supported by the [employer] and Human [employer]'s declaration that [...] Performed By: #### B MP, TSH #### [facility] [address] [place] [address] Dr. Daniel Hahn D-DIMERon 01-14-2022 D-DIMER 2.00 mg/L FEU Critically high <=0.[address] [facility] Comment on above: Performed By: #### B MP, TSH #### [facility] [address] [place] [address] Dr. Daniel Hahn D-DIMER COMMENTS SEE BELOW Normal [facility] Comment on above: Result Comment: Incr [...] Performed By: #### B MP, TSH #### [facility] [address] [place] [address] Dr. Daniel Hahn ECHO LIMITED STUDYon 022 ECHO LIMITED STUDY Patient: SEBASTIAN DIEGO Exam Date: 01/14/2022 : 1945 Gender:M Ordering : JULEE DUONG Admission #: [id number] Family : DR LEE PARSONS . Order #: [id number] CLICK HERE TO VIEW EXAM ECHOCARDIOGRAM REPORT [...] Nguyen M.D. on 01/14/2022 at 18:23 Normal [facility] ER URINE PROFILEon 2 Bilirubin Ql (U) Negative Normal NEGATIVE [facility] Comment on above: Performed By: #### E RUR #### [facility] [address] [address] [address] Daniel Hahn Clarity (U) CLEAR Normal CLEAR [facility] Comment on above: Performed By: #### E RUR #### [facility] [address] [place], [place] [address] Dr. Daniel Hahn Color (U) YELLOW Normal YELLOW [facility] Comment on above: Performed By: #### E RUR #### [facility] [address] [place] [address] Dr. Daniel WADE A micrscopic examination will be performed if indicated. Normal [facility] Comment on above: Performed By: #### E RUR #### [facility] [address] [place] [address] Dr. Daniel Hahn Glucose Ql (U) Negative Normal NEGATIVE [facility] Comment on above: Performed By: #### E RUR #### [facility] [address] [place] [address] Dr. Daniel Hahn Hemoglobin Ql (U) Negative Normal NEGATIVE [facility] Comment on above: Performed By: #### E RUR #### [facility] [address] [place] [address] Dr. Daniel Hahn Ketones Ql (U) Negative Normal NEGATIVE [facility] Comment on above: Performed By: #### E RUR #### [facility] [address] [place] [address] Dr. Daniel Hahn LEUKOCYTES Negative Normal NEGATIVE [facility] Comment on above: Performed By: #### E RUR #### [facility] [address] [place] [address] Dr. Daniel Hahn Nitrite Ql (U) Negative Normal NEGATIVE [facility] Comment on above: Performed By: #### E RUR #### [facility] [address] [place] [address] Dr. Daniel Hahn pH (U) 5.5 [pH] Normal 5-9 [facility] Comment on above: Performed By: #### E RUR #### [facility] [address] [place] [address] Dr. Daniel Hahn SPEC GRAVITY 1.025 Normal 1.005-<=1.02 5 [facility] Comment on above: Performed By: #### E RUR #### [facility] [address] [place] [address] Dr. Daniel Hahn UA PROTEIN TRACE Normal NEGATIVE/ TRACE [facility] Comment on above: Performed By: #### E RUR #### [facility] [address] [place] [address] Dr. Daniel Hahn UR MICRO IND NOT INDICATED Normal [facility] Comment on above: Performed By: #### E RUR #### [facility] [address] [place] [address] Dr. Daniel Hahn Urobilinogen Qn (U) 4 {Julien'U}/dL Abnormal 0.2 - 1.0 [facility] Comment on above: Performed By: #### E RUR #### [facility] [address] [place] [address] Dr. Daniel Hahn LACTATE/LACTIC ACIDon 2021 Lactate [Moles/Vol] 2.6 mmol/L Critically high 0.4-1.9 [facility] Comment on above: Performed By: #### B IGNACIO, LIVER #### [facility] [address] [place] [address] Dr. Daniel Hahn Lactate [Moles/Vol] 2.6 mmol/L Critically high 0.4-1.9 [facility] Comment on above: Performed By: #### B IGNACIO, TSH #### [facility] [address] [place] [address] Dr. Daniel Hahn Lactate [Moles/Vol] 3.7 mmol/L Critically high 0.4-1.9 [facility] Comment on above: Performed By: #### P SAFREE #### [facility] [address] [place] [address] Dr. Daniel Hahn LIVER PROFILEon 01-14-2022 Albumin [Mass/Vol] 3.4 g/dL Normal 3.4-5.0 [facility] Comment on above: Performed By: #### B MP, TSH #### [facility] [address] [place] [address] Dr. Daniel Hahn Albumin/Globulin [Mass ratio] 1.1 {ratio} Normal [facility] Comment on above: Performed By: #### B MP, TSH #### [facility] [address] [place] [address] Dr. Daniel Hahn ALP [Catalytic activity/Vol] 100 U/L Normal 46-116 [facility] Comment on above: Performed By: #### B IGNACIO, TSH #### [facility] [address] [address] [address] Daniel Hahn ALT [Catalytic activity/Vol] 21 U/L Normal 16-63 [facility] Comment on above: Performed By: #### B MP, TSH #### [facility] [address] [address] [address] Daniel Hahn AST [Catalytic activity/Vol] 25 U/L Normal 15-37 [facility] Comment on above: Performed By: #### B MP, TSH #### [facility] [address] [address] [address] Daniel Hahn BILI, CONJUGATED 0.0 mg/dL Normal 0.0-0.2 [facility] Comment on above: Performed By: #### B MP, TSH #### [facility] [address] [place] [address] Dr. Daniel Hahn Bilirubin [Mass/Vol] 0.7 mg/dL Normal 0.2-1.0 [facility] Comment on above: Performed By: #### B MP, TSH #### [facility] [address] [address] [address] Daniel Hahn Globulin (S) [Mass/Vol] 3.2 g/dL Normal [facility] Comment on above: Performed By: #### B MP, TSH #### [facility] [address] [place] [address] Dr. Daniel Hahn Protein [Mass/Vol] 6.6 g/dL Normal 6.4-8.2 [facility] Comment on above: Performed By: #### B MP, TSH #### [facility] [address] [address] [address] Daniel Hahn PROF 14(COMP METB)on 022 Albumin [Mass/Vol] 3.1 g/dL Critically low 3.4-5.0 [facility] Comment on above: Performed By: #### C MP #### [facility] [address] [place] [address] Dr. Daniel Hahn Albumin/Globulin [Mass ratio] 1.1 {ratio} Normal [facility] Comment on above: Performed By: #### C MP #### [facility] [address] [address] [address] Daniel Hahn ALP [Catalytic activity/Vol] 91 U/L Normal 46-116 [facility] Comment on above: Performed By: #### C MP #### [facility] [address] [address] [address] Daniel Hahn ALT [Catalytic activity/Vol] 17 U/L Normal 16-63 [facility] Comment on above: Performed By: #### C MP #### [facility] [address] [address] [address] Daniel Hahn Anion gap [Moles/Vol] 13.4 mmol/L Normal [facility] Comment on above: Performed By: #### C MP #### [facility] [address] [place] [address] Dr. Daniel Hahn AST [Catalytic activity/Vol] 18 U/L Normal 15-37 [facility] Comment on above: Performed By: #### C MP #### [facility] [address] [place] [address] Dr. Daniel Hahn Bilirubin [Mass/Vol] 0.4 mg/dL Normal 0.2-1.0 [facility] Comment on above: Performed By: #### C MP #### [facility] [address] [place] [address] Dr. Daniel Hahn Calcium [Mass/Vol] 8.8 mg/dL Normal 8.5-10.1 [facility] Comment on above: Performed By: #### C MP #### [facility] [address] [address] [address] Daniel Hahn Chloride [Moles/Vol] 109 mmol/L Critically high 98-107 [facility] Comment on above: Performed By: #### C MP #### [facility] [address] [address] [address] Daniel Hahn CO2 [Moles/Vol] 24.2 mmol/L Normal 21.0-32.0 [facility] Comment on above: Performed By: #### C MP #### [facility] [address] [address] [address] Daniel Hahn Creatinine [Mass/Vol] 1.20 mg/dL Normal 0.70-1.30 [facility] Comment on above: Performed By: #### C MP #### [facility] [address] [address] [address] Daniel Hahn EGFR-AF ENGLISH >60 Normal >=60 [facility] Comment on above: Performed By: #### C MP #### [facility] [address] [address] [address] Daniel Hanh EGFR-NON AF ENGLISH 59 mL/min/1.73m2 Critically low >=60 [facility] Comment on above: Performed By: #### C MP #### [facility] [address] [place] [address] Dr. Daniel Hahn Globulin (S) [Mass/Vol] 2.9 g/dL Normal [facility] Comment on above: Performed By: #### C MP #### [facility] [address] [address] [address] Daniel Hahn Glucose [Mass/Vol] 151 mg/dL Critically high 74-106 [facility] Comment on above: Performed By: #### C MP #### [facility] [address] [place] [address] Dr. Daniel Hahn Potassium [Moles/Vol] 3.6 mmol/L Normal 3.5-5.1 [facility] Comment on above: Performed By: #### C MP #### [facility] [address] [address] [address] Daniel Hahn Protein [Mass/Vol] 6.0 g/dL Critically low 6.4-8.2 [facility] Comment on above: Performed By: #### C MP #### [facility] [address] [address] [address] Daniel Hahn Sodium [Moles/Vol] 143 mmol/L Normal 136-145 [facility] Comment on above: Performed By: #### C MP #### [facility] [address] [place] [address] Dr. Daniel Hahn Urea nitrogen [Mass/Vol] 9.0 mg/dL Normal 7.0-18.0 [facility] Comment on above: Performed By: #### C MP #### [facility] [facility] [address] [place] [address] Dr. Daniel Hahn Urea nitrogen/Creatinine [Mass ratio] 7.5 mg/mg Normal [facility] Comment on above: Performed By: #### C MP #### [facility] [address] [address] [address] Daniel Hahn PROF CHEM 8 (BAS METB)on Anion gap [Moles/Vol] 12.0 mmol/L Normal [facility] Comment on above: Performed By: #### B IGNACIO, TSH #### [facility] [address] [place] [address] Dr. Daniel Hahn Calcium [Mass/Vol] 8.9 mg/dL Normal 8.5-10.1 [facility] Comment on above: Performed By: #### B IGNACIO, TSH #### [facility] [address] [place] [address] Dr. Daniel Hahn Chloride [Moles/Vol] 106 mmol/L Normal 98-107 [facility] Comment on above: Performed By: #### B IGNACIO, TSH #### [facility] [address] [place] [address] Dr. Daniel Hahn CO2 [Moles/Vol] 25.3 mmol/L Normal 21.0-32.0 [facility] Comment on above: Performed By: #### B IGNACIO, TSH #### [facility] [address] [place] [address] Dr. Daniel Hahn Creatinine [Mass/Vol] 1.50 mg/dL Critically high 0.70-1.30 [facility] Comment on above: Performed By: #### B IGNACIO, TSH #### [facility] [address] [place] [address] Dr. Daniel Hahn EGFR-AF ENGLISH 55 mL/min/1.73m2 Critically low >=60 [facility] Comment on above: Performed By: #### B IGNACIO, TSH #### [facility] [address] [address] [address] Daniel Hahn EGFR-NON AF ENGLISH 46 mL/min/1.73m2 Critically low >=60 [facility] Comment on above: Performed By: #### B MP, TSH #### [facility] [address] [address] [address] Daniel Hahn Glucose [Mass/Vol] 213 mg/dL Critically high 74-106 [facility] Comment on above: Performed By: #### B MP, TSH #### [facility] [address] [address] [address] Daniel Hahn Potassium [Moles/Vol] 3.3 mmol/L Critically low 3.5-5.1 [facility] Comment on above: Performed By: #### B MP, TSH #### [facility] [address] [address] [address] Daniel Hahn Sodium [Moles/Vol] 140 mmol/L Normal 136-145 [facility] Comment on above: Performed By: #### B MP, TSH #### [facility] [address] [address] [address] Daniel Hahn Urea nitrogen [Mass/Vol] 11.0 mg/dL Normal 7.0-18.0 [facility] Comment on above: Performed By: #### B MP, TSH #### [facility] [address] [address] [address] Daniel Hahn Urea nitrogen/Creatinine [Mass ratio] 7.3 mg/mg Normal [facility] Comment on above: Performed By: #### B MP, TSH #### [facility] [address] [address] [address] Daniel Hahn TSHon 01-14-2022 TSH 0.213 uIU/mL Critically low 0.358-3.740 [facility] Comment on above: Performed By: #### B MP, TSH #### [facility] [address] [address] [address] Daniel Hahn XR CHEST 1 Von [...] by: ALKA MORENO Date: 2022-01-14 00:55 Normal [facility] PTH INTACTon 12-25-2021 PTH, Intact 26 pg/mL Normal 15-65 [facility] Comment on above: Performed By: #### B IGNACIO, TSH #### [facility] [address] [address] [address] Daniel Hahn VIT D 25-OH LABCORPon 2021 Vitamin D, 25-Hydroxy 52.5 ng/mL Normal 30.0-100.0 [facility] Comment on above: Result Comment: Megan min D deficiency has been defined by the [place] of [employer] and an Endocrine Society practice guideline as a level of serum 25-OH vitamin D less than 20 ng/mL (1,2). The Endocrine Society went on to further define vitamin D insufficiency as a level between 21 and 29 ng/mL (2). 1. IOM ([place] of [employer]). 2010. Dietary reference intakes for calcium and D. [place]: The National Academies Press. 2. Jesica MF, [place], Mandy HORNE, et al. Evaluation, treatment, and prevention of vitamin D deficiency: an Endocrine Society clinical practice guideline. JCEM. 2010; 96(7):1911-30. Performed By: #### B IGNACIO, TSH #### [facility] [address] [address] [address] Daniel Hahn FREE T3on 12-24-2021 FREE T3 2.03 pg/mlL Critically low 2.18-3.[address] [facility] Comment on above: Performed By: #### B IGNACIO, TSH #### [facility] [address] [address] [address] Daniel Hahn FREE T4on 12-24-2021 Free T4 [Mass/Vol] 0.95 ng/dL Normal 0.76-1.46 [facility] Comment on above: Performed By: #### F T4 #### [facility] [address] [place] [address] Dr. Daniel Hahn GLYCOHEMOGLOBIN A1Con 2021 ADA RECOMMENDATION SEE BELOW Normal [facility] Comment on above: Result Comment: ADA RECOMMENDED LIMIT 4.0 - 6.0 ADA THERAPEUTIC TARGET < 7.0 ACTION SUGGESTED > 7.0 Performed By: #### B MP, LIVER #### [facility] [address] [place] [address] Dr. Daniel Hahn Glucose [Mass/Vol] 126 mg/dL Normal [facility] Comment on above: Performed By: #### B MP, LIVER #### [facility] [address] [place] [address] Dr. Daniel Hahn HbA1c (Bld) [Mass fraction] 6.0 % Normal 4.5-6.2 [facility] Comment on above: Performed By: #### B MP, LIVER #### [facility] [address] [place] [address] Dr. Daniel Hahn PROF 14(COMP METB)on 022 Albumin [Mass/Vol] 3.3 g/dL Critically low 3.4-5.0 [facility] Comment on above: Performed By: #### B MP, TSH #### [facility] [address] [place] [address] Dr. Daniel Hahn Albumin/Globulin [Mass ratio] 1.0 {ratio} Normal [facility] Comment on above: Performed By: #### B MP, TSH #### [facility] [address] [place] [address] Dr. Daniel Hahn ALP [Catalytic activity/Vol] 96 U/L Normal 46-116 [facility] Comment on above: Performed By: #### B MP, TSH #### [facility] [address] [place] [address] Dr. Daniel Hahn ALT [Catalytic activity/Vol] 15 U/L Critically low 16-63 [facility] Comment on above: Performed By: #### B MP, TSH #### [facility] [address] [place] [address] Dr. Daniel Hahn Anion gap [Moles/Vol] 7.4 mmol/L Normal [facility] Comment on above: Performed By: #### B MP, TSH #### [facility] [address] [place] [address] Dr. Daniel Hahn AST [Catalytic activity/Vol] 16 U/L Normal 15-37 [facility] Comment on above: Performed By: #### B MP, TSH #### [facility] [address] [place] [address] Dr. Daniel Hahn Bilirubin [Mass/Vol] 0.6 mg/dL Normal 0.2-1.0 [facility] Comment on above: Performed By: #### B IGNACIO, TSH #### [facility] [address] [place] [address] Dr. Daniel Hahn Calcium [Mass/Vol] 9.0 mg/dL Normal 8.5-10.1 [facility] Comment on above: Performed By: #### B IGNACIO, TSH #### [facility] [address] [place] [address] Dr. Daniel Hahn Chloride [Moles/Vol] 107 mmol/L Normal 98-107 [facility] Comment on above: Performed By: #### B IGNACIO, TSH #### [facility] [address] [place] [address] Dr. Daniel Hahn CO2 [Moles/Vol] 32.8 mmol/L Critically high 21.0-32.0 [facility] Comment on above: Performed By: #### B IGNACIO, TSH #### [facility] [address] [place] [address] Dr. Daniel Hahn Creatinine [Mass/Vol] 1.06 mg/dL Normal 0.70-1.30 [facility] Comment on above: Performed By: #### B IGNACIO, TSH #### [facility] [address] [place] [address] Dr. Daniel Hahn EGFR-AF ENGLISH >60 Normal >=60 [facility] Comment on above: Performed By: #### B IGNACIO, TSH #### [facility] [address] [place] [address] Dr. Daniel Hahn EGFR-NON AF ENGLISH >60 Normal >=60 [facility] Comment on above: Performed By: #### B MP, TSH #### [facility] [address] [place] [address] Dr. Daniel Hahn Globulin (S) [Mass/Vol] 3.2 g/dL Normal [facility] Comment on above: Performed By: #### B MP, TSH #### [facility] [address] [place] [address] Dr. Daniel Hahn Glucose [Mass/Vol] 148 mg/dL Critically high 74-106 [facility] Comment on above: Performed By: #### B MP, TSH #### [facility] [address] [place] [address] Dr. Daniel Hahn Potassium [Moles/Vol] 4.2 mmol/L Normal 3.5-5.1 [facility] Comment on above: Performed By: #### B MP, TSH #### [facility] [address] [place] [address] Dr. Daniel Hahn Protein [Mass/Vol] 6.5 g/dL Normal 6.4-8.2 [facility] Comment on above: Performed By: #### B MP, TSH #### [facility] [address] [place] [address] Dr. Daniel Hahn Sodium [Moles/Vol] 143 mmol/L Normal 136-145 [facility] Comment on above: Performed By: #### B MP, TSH #### [facility] [address] [place] [address] Dr. Daniel Hahn Urea nitrogen [Mass/Vol] 15.0 mg/dL Normal 7.0-18.0 [facility] Comment on above: Performed By: #### B MP, TSH #### [facility] [address] [place] [address] Dr. Daniel Hahn Urea nitrogen/Creatinine [Mass ratio] 14.2 mg/mg Normal [facility] Comment on above: Performed By: #### B MP, TSH #### [facility] [address] [place] [address] Dr. Daniel Hahn TSHon 12-24-2021 TSH 0.409 uIU/mL Normal 0.358-3.740 [facility] Comment on above: Performed By: #### P SAFREE #### [facility] [address] [place] [address] Dr. Daniel Hahn XR KUB 1 VIEWon [...] by: CAROLINE BLOUNT Date: 2021-12-24 17:55 Normal [facility] XR TSPINE 3 VIEWSon 12-25-19 XR TSPINE 3 VIEWS EXAMINATION: XR TSPINE [...] CAROLINE BLOUNT Date: 2021-12-24 18:05 Normal [facility] XR KUB 1 VIEWon 10-23-2021 [...] DEANDRE MIN Date: 2021-10-23 07:19 Normal [facility] UA RANDOM W/MICROSCOPICon BACTERIA TRACE Abnormal NONE SEEN [facility] Comment on above: Performed By: #### B MP, LIVER #### [facility] [address] [place] [address] Dr. Daniel Hahn Bilirubin Ql (U) Negative Normal NEGATIVE [facility] Comment on above: Performed By: #### B MP, LIVER #### [facility] [address] [place] [address] Dr. Daniel Hahn CAST NONE SEEN Normal NONE SEEN [facility] Comment on above: Performed By: #### B MP, LIVER #### [facility] [address] [place] [address] Dr. Daniel Hahn Clarity (U) CLEAR Normal CLEAR [facility] Comment on above: Performed By: #### B MP, LIVER #### [facility] [address] [place] [address] Dr. Daniel Hahn Color (U) YELLOW Normal YELLOW [facility] Comment on above: Performed By: #### B MP, LIVER #### [facility] [address] [place] [address] Dr. Daniel Hahn Crystals LM Nom (Urine sed) SEEN Abnormal NONE SEEN [facility] Comment on above: Performed By: #### B MP, LIVER #### [facility] [address] [place] [address] Dr. Daniel Hahn Epithelial cells LM Ql (Urine sed) RARE Normal NONE SEEN /RARE [facility] Comment on above: Performed By: #### B MP, LIVER #### [facility] [address] [place] [address] Dr. Daniel Hahn Glucose Ql (U) 100 mg/dl Abnormal NEGATIVE [facility] Comment on above: Performed By: #### B MP, LIVER #### [facility] [address] [place] [address] Dr. Daniel Hahn Hemoglobin Ql (U) Negative Normal NEGATIVE [facility] Comment on above: Performed By: #### B MP, LIVER #### [facility] [address] [place] [address] Dr. Daniel Hahn Ketones Ql (U) Negative Normal NEGATIVE [facility] Comment on above: Performed By: #### B MP, LIVER #### [facility] [address] [place] [address] Dr. Daniel Hahn LEUKOCYTES Negative Normal NEGATIVE [facility] Comment on above: Performed By: #### B MP, LIVER #### [facility] [address] [place] [address] Dr. Daniel Hahn MUCOUS MODERATE Abnormal NONE SEEN [facility] Comment on above: Performed By: #### B MP, LIVER #### [facility] [address] [place] [address] Dr. Daniel Hahn Nitrite Ql (U) Negative Normal NEGATIVE [facility] Comment on above: Performed By: #### B MP, LIVER #### [facility] [address] [place] [address] Dr. Daniel Hahn pH (U) 6.0 [pH] Normal 5-9 [facility] Comment on above: Performed By: #### B MP, LIVER #### [facility] [address] [place] [address] Dr. Daniel Hahn RBC 10-20 Abnormal 0-2 [facility] Comment on above: Performed By: #### B MP, LIVER #### [facility] [address] [place] [address] Dr. Daniel Hahn SPEC GRAVITY 1.020 Normal 1.005-<=1.02 5 [facility] Comment on above: Performed By: #### B MP, LIVER #### [facility] [address] [place] [address] Dr. Daniel Hahn UA PROTEIN Negative Normal NEGATIVE/ TRACE [facility] Comment on above: Performed By: #### B MP, LIVER #### [facility] [address] [place] [address] Dr. Daniel Hahn Urobilinogen Qn (U) 8 {Julien'U}/dL Abnormal 0.2 - 1.0 [facility] Comment on above: Performed By: #### B MP, LIVER #### [facility] [address] [address] [address] Daniel Hahn WBC NONE SEEN Normal NONE SEEN [facility] Comment on above: Performed By: #### B MP, LIVER #### [facility] [address] [place] [address] Dr. Daniel Hahn LIVER PROFILEon 09-26-2021 Albumin [Mass/Vol] 3.3 g/dL Critically low 3.4-5.0 [facility] Comment on above: Performed By: #### B MP, LIVER #### [facility] [address] [place] [address] Dr. Daniel Hahn Albumin/Globulin [Mass ratio] 1.0 {ratio} Normal [facility] Comment on above: Performed By: #### B MP, LIVER #### [facility] [address] [place] [address] Dr. Daniel Hahn ALP [Catalytic activity/Vol] 102 U/L Normal 46-116 [facility] Comment on above: Performed By: #### B MP, LIVER #### [facility] [address] [place] [address] Dr. Daniel Hahn ALT [Catalytic activity/Vol] 19 U/L Normal 16-63 [facility] Comment on above: Performed By: #### B MP, LIVER #### [facility] [address] [place] [address] Dr. Daniel Hahn AST [Catalytic activity/Vol] 15 U/L Normal 15-37 [facility] Comment on above: Performed By: #### B MP, LIVER #### [facility] [address] [place] [address] Dr. Daniel Hahn BILI, CONJUGATED 0.3 mg/dL Critically high 0.0-0.2 [facility] Comment on above: Performed By: #### B MP, LIVER #### [facility] [address] [place] [address] Dr. Daniel Hahn Bilirubin [Mass/Vol] 0.9 mg/dL Normal 0.2-1.0 [facility] Comment on above: Performed By: #### B MP, LIVER #### [facility] [address] [place] [address] Dr. Daniel Hahn Globulin (S) [Mass/Vol] 3.2 g/dL Normal [facility] Comment on above: Performed By: #### B MP, LIVER #### [facility] [address] [place] [address] Dr. Daniel Hahn Protein [Mass/Vol] 6.5 g/dL Normal 6.4-8.2 [facility] Comment on above: Performed By: #### B MP, LIVER #### [facility] [address] [place] [address] Dr. Daniel Hahn PROF CHEM 8 (BAS METB)on Anion gap [Moles/Vol] 10.2 mmol/L Normal [facility] Comment on above: Performed By: #### B MP, LIVER #### [facility] [address] [place] [address] Dr. Daniel Hahn Calcium [Mass/Vol] 9.0 mg/dL Normal 8.5-10.1 [facility] Comment on above: Performed By: #### B MP, LIVER #### [facility] [address] [place] [address] Dr. Daniel Hahn Chloride [Moles/Vol] 104 mmol/L Normal 98-107 [facility] Comment on above: Performed By: #### B MP, LIVER #### [facility] [address] [place] [address] Dr. Daniel Hahn CO2 [Moles/Vol] 28.8 mmol/L Normal 21.0-32.0 [facility] Comment on above: Performed By: #### B MP, LIVER #### [facility] [address] [place] [address] Dr. Daniel Hahn Creatinine [Mass/Vol] 1.11 mg/dL Normal 0.70-1.30 [facility] Comment on above: Performed By: #### B MP, LIVER #### [facility] [address] [place] [address] Dr. Daniel Hahn EGFR-AF ENGLISH >60 Normal >=60 [facility] Comment on above: Performed By: #### B MP, LIVER #### [facility] [address] [place] [address] Dr. Daniel Hahn EGFR-NON AF ENGLISH >60 Normal >=60 [facility] Comment on above: Performed By: #### B MP, LIVER #### [facility] [address] [place] [address] Dr. Daniel Hahn Glucose [Mass/Vol] 179 mg/dL Critically high 74-106 [facility] Comment on above: Performed By: #### B MP, LIVER #### [facility] [address] [place] [address] Dr. Daniel Hahn Potassium [Moles/Vol] 4.0 mmol/L Normal 3.5-5.1 [facility] Comment on above: Performed By: #### B MP, LIVER #### [facility] [address] [place] [address] Dr. Daniel Hahn Sodium [Moles/Vol] 139 mmol/L Normal 136-145 [facility] Comment on above: Performed By: #### B MP, LIVER #### [facility] [address] [place] [address] Dr. Daniel Hahn Urea nitrogen [Mass/Vol] 15.0 mg/dL Normal 7.0-18.0 [facility] Comment on above: Performed By: #### B MP, LIVER #### [facility] [address] [place] [address] Dr. Daniel Hahn Urea nitrogen/Creatinine [Mass ratio] 13.5 mg/mg Normal [facility] Comment on above: Performed By: #### B MP, LIVER #### [facility] [address] [place] [address] Dr. Daniel Hahn CBC AUTO DIFFon 09-10-2021 BASO # 0.1 103/ul Normal 0.0-0.1 [facility] Comment on above: Performed By: #### P SAFREE #### [facility] [address] [place] [address] Dr. Daniel Hahn Basophils/100 WBC (Bld) 1.1 % Normal 0.2-2.0 [facility] Comment on above: Performed By: #### P SAFREE #### [facility] [address] [place] [address] Dr. Daniel Hahn EO # 0.3 103/ul Normal 0.0-0.7 [facility] Comment on above: Performed By: #### P SAFREE #### [facility] [address] [place] [address] Dr. Daniel Hahn Eosinophils/100 WBC (Bld) 4.1 % Normal 0.9-7.0 [facility] Comment on above: Performed By: #### P SAFREE #### [facility] [address] [place] [address] Dr. Daniel Hahn Erythrocyte distribution width (RBC) [Ratio] 13.6 % Normal 11.0-15.0 [facility] Comment on above: Performed By: #### P SAFREE #### [facility] [address] [place] [address] Dr. Daniel Hahn Hematocrit (Bld) [Volume fraction] 49.2 % Normal 42.0-54.0 [facility] Comment on above: Performed By: #### P SAFREE #### [facility] [address] [place] [address] Dr. Daniel Hahn Hemoglobin (Bld) [Mass/Vol] 16.1 g/dL Normal 14.0-18.0 [facility] Comment on above: Performed By: #### P SAFREE #### [facility] [address] [place] [address] Dr. Daniel Hahn IG # 0.02 10e3/ul Normal 0.00-0.03 [facility] Comment on above: Performed By: #### P SAFREE #### [facility] [address] [place] [address] Dr. Daniel Hahn IG % 0.2 % Normal 0.0-0.5 [facility] Comment on above: Performed By: #### P SAFREE #### [facility] [address] [place] [address] Dr. Daniel Hahn LYMPH # 2.3 103/ul Normal 1.2-3.8 [facility] Comment on above: Performed By: #### P SAFREE #### [facility] [address] [place] [address] Dr. Daniel Hahn Lymphocytes/100 WBC (Bld) 27.6 % Normal 20.5-60.0 [facility] Comment on above: Performed By: #### P SAFREE #### [facility] [address] [place] [address] Dr. Daniel Hahn MANUAL DIFF REQ NO Normal [facility] Comment on above: Performed By: #### P SAFREE #### [facility] [address] [place] [address] Dr. Daniel Hahn MCH (RBC) [Entitic mass] 31.4 pg Normal 25.9-34.0 [facility] Comment on above: Performed By: #### P SAFREE #### [facility] [address] [place] [address] Dr. Daniel Hahn MCHC (RBC) [Mass/Vol] 32.7 g/dL Normal 29.9-35.2 [facility] Comment on above: Performed By: #### P SAFREE #### [facility] [address] [place] [address] Dr. Daniel Hahn MCV (RBC) [Entitic vol] 96.1 fL Critically high 80.0-94 .0 [facility] Comment on above: Performed By: #### P SAFREE #### [facility] [address] [place] [address] Dr. Daniel Hahn MONO # 0.6 103/ul Normal 0.3-0.8 [facility] Comment on above: Performed By: #### P SAFREE #### [facility] [address] [place] [address] Dr. Daniel Hahn Monocytes/100 WBC (Bld) 7.8 % Normal 1.7-12.0 [facility] Comment on above: Performed By: #### P SAFREE #### [facility] [address] [place] [address] Dr. Daniel Hahn NEUT # 4.9 103/ul Normal 1.4-6.5 [facility] Comment on above: Performed By: #### P SAFREE #### [facility] [address] [place] [address] Dr. Daniel Hahn Neutrophils/100 WBC (Bld) 59.2 % Normal 43.0-75.0 [facility] Comment on above: Performed By: #### P SAFREE #### [facility] [address] [place] [address] Dr. Daniel Hahn Platelet mean volume (Bld) [Entitic vol] 10.4 fL Normal 9.5-13.5 [facility] Comment on above: Performed By: #### P SAFREE #### [facility] [address] [place] [address] Dr. Daniel Hahn PLT 284 103/ul Normal 150-450 [facility] Comment on above: Performed By: #### P SAFREE #### [facility] [address] [place] [address] Dr. Daniel Hahn RBC 5.12 106/ul Normal 4.70-6.10 [facility] Comment on above: Performed By: #### P SAFREE #### [facility] [address] [place] [address] Dr. Daniel Hahn WBC 8.2 103/ul Normal 4.0-11.0 [facility] Comment on above: Performed By: #### P SAFREE #### [facility] [address] [place] [address] Dr. Daniel Hahn FREE T4on 09-10-2021 Free T4 [Mass/Vol] 1.28 ng/dL Normal 0.76-1.[address] [facility] Comment on above: Performed By: #### B MP, LIVER #### [facility] [address] [place] [address] Dr. Daniel Hahn LIVER PROFILEon 09-10-2021 Albumin [Mass/Vol] 3.7 g/dL Normal 3.4-5.0 [facility] Comment on above: Performed By: #### P SAFREE #### [facility] [address] [place] [address] Dr. Daniel Hahn Albumin/Globulin [Mass ratio] 1.1 {ratio} Normal [facility] Comment on above: Performed By: #### P SAFREE #### [facility] [address] [place] [address] Dr. Daniel Hahn ALP [Catalytic activity/Vol] 120 U/L Critically high 46-116 [facility] Comment on above: Performed By: #### P SAFREE #### [facility] [address] [place] [address] Dr. Daniel Hahn ALT [Catalytic activity/Vol] 18 U/L Normal 16-63 [facility] Comment on above: Performed By: #### P SAFREE #### [facility] [address] [place] [address] Dr. Daniel Hahn AST [Catalytic activity/Vol] 19 U/L Normal 15-37 [facility] Comment on above: Performed By: #### P SAFREE #### [facility] [address] [place] [address] Dr. Daniel Hahn BILI, CONJUGATED 0.3 mg/dL Critically high 0.0-0.2 [facility] Comment on above: Performed By: #### P SAFREE #### [facility] [address] [place] [address] Dr. Daniel Hahn Bilirubin [Mass/Vol] 1.0 mg/dL Normal 0.2-1.0 [facility] Comment on above: Performed By: #### P SAFREE #### [facility] [address] [place] [address] Dr. Daniel Hahn Globulin (S) [Mass/Vol] 3.4 g/dL Normal [facility] Comment on above: Performed By: #### P SAFREE #### [facility] [address] [place] [address] Dr. Daniel Hahn Protein [Mass/Vol] 7.1 g/dL Normal 6.4-8.2 [facility] Comment on above: Performed By: #### P SAFREE #### [facility] [address] [place] [address] Dr. Daniel Hahn PROF CHEM 8 (BAS METB)on Anion gap [Moles/Vol] 12.4 mmol/L Normal [facility] Comment on above: Performed By: #### B MP, TSH #### [facility] [address] [place] [address] Dr. Daniel Hahn Calcium [Mass/Vol] 9.2 mg/dL Normal 8.5-10.1 [facility] Comment on above: Performed By: #### B MP, TSH #### [facility] [address] [place] [address] Dr. Daniel Hahn Chloride [Moles/Vol] 103 mmol/L Normal 98-107 [facility] Comment on above: Performed By: #### B IGNACIO, TSH #### [facility] [address] [place] [address] Dr. Daniel Hahn CO2 [Moles/Vol] 28.9 mmol/L Normal 21.0-32.0 [facility] Comment on above: Performed By: #### B IGNACIO, TSH #### [facility] [address] [place] [address] Dr. Daniel Hahn Creatinine [Mass/Vol] 1.04 mg/dL Normal 0.70-1.30 [facility] Comment on above: Performed By: #### B IGNACIO, TSH #### [facility] [address] [place] [address] Dr. Daniel Hahn EGFR-AF ENGLISH >60 Normal >=60 [facility] Comment on above: Performed By: #### B IGNACIO, TSH #### [facility] [address] [place] [address] Dr. Daniel Hahn EGFR-NON AF ENGLISH >60 Normal >=60 [facility] Comment on above: Performed By: #### B MP, TSH #### [facility] [address] [place] [address] Dr. Daniel Hahn Glucose [Mass/Vol] 92 mg/dL Normal 74-[address] [facility] Comment on above: Performed By: #### B IGNACIO, TSH #### [facility] [address] [place] [address] Dr. Daniel Hahn Potassium [Moles/Vol] 3.3 mmol/L Critically low 3.5-5.1 [facility] Comment on above: Performed By: #### B MP, TSH #### [facility] [address] [place] [address] Dr. Daniel Hahn Sodium [Moles/Vol] 141 mmol/L Normal 136-145 [facility] Comment on above: Performed By: #### B MP, TSH #### [facility] [address] [address] [address] Daniel Hahn Urea nitrogen [Mass/Vol] 12.0 mg/dL Normal 7.0-18.0 [facility] Comment on above: Performed By: #### B MP, TSH #### [facility] [address] [place] [address] Dr. Daniel Hahn Urea nitrogen/Creatinine [Mass ratio] 11.5 mg/mg Normal [facility] Comment on above: Performed By: #### B MP, TSH #### [facility] [address] [place] [address] Dr. Daniel Hahn TSHon 09-10-2021 TSH 0.148 uIU/mL Critically low 0.358-3.740 [facility] Comment on above: Performed By: #### B MP, TSH #### [facility] [address] [place] [address] Dr. Daniel Hahn TSH RANGE SEE BELOW Normal [facility] Comment on above: Result Comment: <0.3 4 UIU/ml HYPERTHYROID 0.34-5.60 UIU/ml EUTHYROID >5.60 UIU/ml HYPOTHYROID Performed By: #### B MP, TSH #### [facility] [address] [place] [address] Dr. 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 Daniel Hahn Clarity (U) CLEAR Normal CLEAR [facility] Comment on above: Performed By: #### B MP, TSH #### [facility] [address] [address] [address] Daniel Hahn Color (U) DK. YELLOW Normal YELLOW [facility] Comment on above: Performed By: #### B MP, TSH #### [facility] [address] [place] [address] Dr. Daniel Hahn Glucose Ql (U) Negative Normal NEGATIVE [facility] Comment on above: Performed By: #### B MP, TSH #### [facility] [address] [address] [address] Daniel Hahn Hemoglobin Ql (U) Negative Normal NEGATIVE [facility] Comment on above: Performed By: #### B MP, TSH #### [facility] [address] [place] [address] Dr. Daniel Hahn Ketones Ql (U) Negative Normal NEGATIVE [facility] Comment on above: Performed By: #### B MP, TSH #### [facility] [address] [place] [address] Dr. Daniel Hahn LEUKOCYTES Negative Normal NEGATIVE [facility] Comment on above: Performed By: #### B MP, TSH #### [facility] [address] [place] [address] Dr. Daniel Hahn Nitrite Ql (U) Negative Normal NEGATIVE [facility] Comment on above: Performed By: #### B MP, TSH #### [facility] [address] [place] [address] Dr. Daniel Hahn pH (U) 6.0 [pH] Normal 5-9 [facility] Comment on above: Performed By: #### B MP, TSH #### [facility] [address] [address] [address] Daniel Hahn SPEC GRAVITY 1.025 Normal 1.005-<=1.02 5 [facility] Comment on above: Performed By: #### B MP, TSH #### [facility] [address] [place] [address] Dr. Daniel Hahn UA PROTEIN TRACE Normal NEGATIVE/ TRACE [facility] Comment on above: Performed By: #### B MP, TSH #### [facility] [address] [place], [place] [address] Dr. Daniel Hahn UR MICRO IND NOT INDICATED Normal [facility] Comment on above: Performed By: #### B MP, TSH #### [facility] [address] [place], [place] [address] Dr. Daniel Hahn Urobilinogen Qn (U) 2.0 {Julien'U}/dL Abnormal 0.2 - 1. 0 [facility] Comment on above: Performed By: #### B MP, TSH #### [facility] [address] [place], [place] [address] Dr. Daniel Hahn Vital Signs Date Time Vital Sign Value Performing Clinician Facility 10-19-2023 03:12-0400 Diastolic blood pressure 75 mm[Hg] Carmelita Aichholz Work Phone: [facility] 10-19-2023 03:12-0400 Systolic blood pressure 118 mm[Hg] Carmelita Aichholz Work Phone: [facility] 10-19-2023 01:59-0400 Heart rate 82 /min Carmelita Aichholz Work Phone: [facility] 10-19-2023 01:59-0400 Respiratory rate 14 /min Carmelita Aichholz Work Phone: [facility] 10-19-2023 01:59-0400 SaO2% (BldA) [Mass fraction] 94 % Carmelita Aichholz Work Phone: [facility] 10-18-2023 23:45-0400 Body height 93.98 cm Carmelita Aichholz Work Phone: [facility] 10-18-2023 23:45-0400 Body temperature 97.7 [degF] Carmelita Aichholz Work Phone: [facility] 10-18-2023 23:45-0400 Body weight 62.3 kg Carmelita Aichholz Work Phone: [facility] 07-30-2023 09:56-0400 Body temperature 97.8 [degF] Carmelita Aichholz Work Phone: [facility] 07-30-2023 09:56-0400 Diastolic blood pressure 60 mm[Hg] Carmelita Aichholz Work Phone: [facility] 07-30-2023 09:56-0400 Heart rate 64 /min Carmelita Aichholz Work Phone: [facility] 07-30-2023 09:56-0400 Respiratory rate 16 /min Carmelita Aichholz Work Phone: [facility] 07-30-2023 09:56-0400 SaO2% (BldA) [Mass fraction] 99 % Carmelita Aichholz Work Phone: [facility] 07-30-2023 09:56-0400 Systolic blood pressure 102 mm[Hg] Carmelita Aichholz Work Phone: [facility] 07-08-2023 10:10-0500 Body temperature 97 [degF] Carmelita Aichholz Work Phone: [facility] 07-08-2023 10:10-0500 Diastolic blood pressure 50 mm[Hg] Carmelita Aichholz Work Phone: [facility] 07-08-2023 10:10-0500 Respiratory rate 16 /min Carmelita Aichholz Work Phone: [facility] 07-08-2023 10:10-0500 Systolic blood pressure 92 mm[Hg] Carmelita Aichholz Work Phone: [facility] 06-16-2023 12:45-0500 Diastolic blood pressure 69 mm[Hg] Carmelita Aichholz Work Phone: [facility] 06-16-2023 12:45-0500 Heart rate 78 /min Carmelita Aichholz Work Phone: [facility] 06-16-2023 12:45-0500 Respiratory rate 16 /min Carmelita Aichholz Work Phone: [facility] 06-16-2023 12:45-0500 SaO2% (BldA) [Mass fraction] 95 % Carmelita Aichholz Work Phone: [facility] 06-16-2023 12:45-0500 Systolic blood pressure 108 mm[Hg] Carmelita Aichholz Work Phone: [facility] 06-16-2023 11:30-0500 Inhaled oxygen flow rate 6 L/min Carmelita Aichholz Work Phone: [facility] 06-16-2023 10:58-0500 Body mass index (BMI) [Ratio] 43.9 kg/m2 Carmelita Aichholz Work Phone: [facility] 06-16-2023 10:46-0500 Body height 121.92 cm Carmelita Aichholz Work Phone: [facility] 06-16-2023 10:46-0500 Body weight 65.31 kg Carmelita Aichholz Work Phone: [facility] 06-16-2023 09:51-0500 Body height 121.92 cm Carmelita Aichholz Work Phone: [facility] 06-16-2023 09:51-0500 Body temperature 97.3 [degF] Carmelita Aichholz Work Phone: [facility] 06-16-2023 09:51-0500 Body weight 65.31 kg Carmelita Aichholz Work Phone: [facility] 06-16-2023 09:51-0500 Diastolic blood pressure 69 mm[Hg] Carmelita Aichholz Work Phone: [facility] 06-16-2023 09:51-0500 Heart rate 68 /min Carmelita Aichholz Work Phone: [facility] 06-16-2023 09:51-0500 Respiratory rate 16 /min Carmelita Aichholz Work Phone: [facility] 06-16-2023 09:51-0500 SaO2% (BldA) [Mass fraction] 97 % Carmelita Aichholz Work Phone: [facility] 06-16-2023 09:51-0500 Systolic blood pressure 121 mm[Hg] Carmelita Aichholz Work Phone: [facility] 06-11-2023 10:00-0500 Body temperature 97.8 [degF] Addie Salmonzheng Other [employer] [facility] [employer] Other 06-11-2023 10:00-0500 Body weight 63.96 kg Addie Marilee Other [employer] [facility] [employer] Other 06-11-2023 10:00-0500 Diastolic blood pressure 60 mm[Hg] Addie Hunt Other [employer] Other 06-11-2023 10:00-0500 SaO2% (BldA) [Mass fraction] 97 % Addie Salmonzheng Other [employer] Other 06-11-2023 10:00-0500 Systolic blood pressure 100 mm[Hg] Addie Salmonzheng Other [employer] Other 05-28-2023 11:45-0500 Body weight 63.95 kg Carmelita Aichholz Work Phone: [facility] 05-28-2023 11:45-0500 Diastolic blood pressure 52 mm[Hg] Carmelita Aichholz Work Phone: [facility] 05-28-2023 11:45-0500 Systolic blood pressure 90 mm[Hg] Carmelita Aichholz Work Phone: [facility] 05-28-2023 10:45-0500 Body temperature 97.1 [degF] Linda Rodriguez Other [employer] Other 05-28-2023 10:45-0500 Body weight 63.96 kg Linda Rodriguez Other [employer] Other 05-28-2023 10:45-0500 Diastolic blood pressure 52 mm[Hg] Linda Rodriguez Other [employer] Other 05-28-2023 10:45-0500 SaO2% (BldA) [Mass fraction] 97 % Linda Rodriguez Other [employer] Other 05-28-2023 10:45-0500 Systolic blood pressure 90 mm[Hg] Linda Rodriguez Other [employer] Other 05-19-2023 12:15-0500 Body temperature 96 [degF] Addie Hunt Other [employer] Other 05-19-2023 12:15-0500 Body weight 63.96 kg Addie Hunt Other [employer] Other 05-19-2023 12:15-0500 Body weight 63.95 kg Carmelita Aichholz Work Phone: [facility] 05-19-2023 12:15-0500 Diastolic blood pressure 56 mm[Hg] Addie Hunt Other [facility] 05-19-2023 12:15-0500 Systolic blood pressure 90 mm[Hg] Addie Hunt Other [facility] 05-14-2023 11:15-0500 Body temperature 97.8 [degF] Addie Hunt Other [facility] [employer] Other 05-14-2023 11:15-0500 Body weight 72.58 kg Addie Hunt Other [facility] [employer] Other 05-14-2023 11:15-0500 Body weight 72.57 kg Carmelita Aichholz Work Phone: [facility] 05-14-2023 11:15-0500 Diastolic blood pressure 82 mm[Hg] Addie Hunt Other [facility] 05-14-2023 11:15-0500 SaO2% (BldA) [Mass fraction] 98 % Addie Hunt Other [facility] [employer] Other 05-14-2023 11:15-0500 Systolic blood pressure 156 mm[Hg] Addie Hunt Other [facility] 04-24-2023 11:17-0500 Body temperature 98.7 [degF] Carmelita Aichholz Work Phone: [facility] 04-24-2023 11:17-0500 Diastolic blood pressure 73 mm[Hg] Carmelita Aichholz Work Phone: [facility] 04-24-2023 11:17-0500 Heart rate 77 /min Carmelita Aichholz Work Phone: [facility] 04-24-2023 11:17-0500 Respiratory rate 20 /min Carmelita Aichholz Work Phone: [facility] 04-24-2023 11:17-0500 SaO2% (BldA) [Mass fraction] 91 % Carmelita Aichholz Work Phone: [facility] 04-24-2023 11:17-0500 Systolic blood pressure 145 mm[Hg] Carmelita Aichholz Work Phone: [facility] 04-23-2023 06:26-0500 Body weight 74.3 kg Carmelita Aichholz Work Phone: [facility] 04-23-2023 03:28-0500 Inhaled oxygen flow rate 2 L/min Carmelita Aichholz Work Phone: [facility] 04-20-2023 09:46-0500 Body height 162.56 cm Carmelita Aichholz Work Phone: [facility] 04-20-2023 09:46-0500 Body mass index (BMI) [Ratio] 27.6 kg/m2 Carmelita Aichholz Work Phone: [facility] 04-17-2023 16:49-0500 Body temperature 99.5 [degF] Carmelita Aichholz Work Phone: [facility] 04-17-2023 16:49-0500 Diastolic blood pressure 79 mm[Hg] Carmelita Aichholz Work Phone: [facility] 04-17-2023 16:49-0500 Heart rate 86 /min Carmelita Aichholz Work Phone: [facility] 04-17-2023 16:49-0500 Respiratory rate 20 /min Carmelita Aichholz Work Phone: [facility] 04-17-2023 16:49-0500 SaO2% (BldA) [Mass fraction] 93 % Carmelita Aichholz Work Phone: [facility] 04-17-2023 16:49-0500 Systolic blood pressure 120 mm[Hg] Carmelita Aichholz Work Phone: [facility] 04-17-2023 16:48-0500 Body height 162.56 cm Carmelita Aichholz Work Phone: [facility] 04-17-2023 16:48-0500 Body weight 73.93 kg Carmelita Aichholz Work Phone: [facility] 03-24-2023 11:45-0500 Diastolic blood pressure 100 mm[Hg] Carmelita Aichholz Work Phone: [facility] 03-24-2023 11:45-0500 Heart rate 68 /min Carmelita Aichholz Work Phone: [facility] 03-24-2023 11:45-0500 Systolic blood pressure 162 mm[Hg] Carmelita Aichholz Work Phone: [facility] 03-24-2023 11:05-0500 Body height 180.34 cm Carmelita Aichholz Work Phone: [facility] 03-24-2023 11:05-0500 Body weight 70.3 kg Carmelita Aichholz Work Phone: [facility] 03-16-2023 14:00-0500 Diastolic blood pressure 88 mm[Hg] Glo Singleton Other [employer] [facility] [employer] Other 03-16-2023 14:00-0500 Respiratory rate 18 /min Glo Singleton Other [employer] Other 03-16-2023 14:00-0500 SaO2% (BldA) [Mass fraction] 98 % Glo Edwardsoroge Other [employer] Other 03-16-2023 14:00-0500 Systolic blood pressure 172 mm[Hg] Glo Mani Other [employer] Other 03-11-2023 10:00-0500 Body temperature 97.8 [degF] Linda Michael Other [employer] Other 03-11-2023 10:00-0500 Body weight 69.85 kg Linda Michael Other [employer] Other 03-11-2023 10:00-0500 Diastolic blood pressure 64 mm[Hg] Linda Rodriguez Other [employer] Other 03-11-2023 10:00-0500 SaO2% (BldA) [Mass fraction] 98 % Linda Rodriguez Other [employer] Other 03-11-2023 10:00-0500 Systolic blood pressure 114 mm[Hg] Linda Rodriguez Other [employer] Other 02-26-2023 10:19-0400 Diastolic blood pressure 104 mm[Hg] Carmelita Aichholz Work Phone: [facility] 02-26-2023 10:19-0400 Heart rate 54 /min Carmelita Aichholz Work Phone: [facility] 02-26-2023 10:19-0400 Respiratory rate 16 /min Carmelita Aichholz Work Phone: [facility] 02-26-2023 10:19-0400 SaO2% (BldA) [Mass fraction] 98 % Carmelita Aichholz Work Phone: [facility] 02-26-2023 10:19-0400 Systolic blood pressure 168 mm[Hg] Carmelita Aichholz Work Phone: [facility] 02-18-2023 09:45-0400 Body temperature 97.2 [degF] Linda Rodriguez Other [employer] Other 02-18-2023 09:45-0400 Diastolic blood pressure 92 mm[Hg] Linda Rodriguez Other [employer] Other 02-18-2023 09:45-0400 SaO2% (BldA) [Mass fraction] 97 % Linda Rodriguez Other [employer] Other 02-18-2023 09:45-0400 Systolic blood pressure 164 mm[Hg] Linda Rodriguez Other [employer] Other 02-10-2023 15:02-0400 Body height 4419.6 cm Carmelita Zavala Work Phone: [facility] 02-10-2023 15:02-0400 Body weight 63.87 kg Carmelita Zavala Work Phone: [facility] Encounters Encounter Date Encounter Type Care Provider Facility Start: 10-18-2023 End: 10-19-2023 Emergency department patient visit Carmelita Zavala Work Phone: [facility] Work Phone: Start: 07-30-2023 End: 07-30-2023 ambulatory Carmelita Zavala Work Phone: [facility] Work Phone: Start: 07-30-2023 End: 07-30-2023 Patient encounter procedure Carmelitacindi Stevensonholz Work Phone: [facility] Work Phone: Start: 07-08-2023 End: 07-08-2023 Patient encounter procedure Carmelitacindi Stevensonholz Work Phone: [facility] Work Phone: Start: 06-19-2023 ambulatory Sancho Preciado ty:KATE Pelaez Start: 06-17-2023 Clinisync Result Encounter Madhav Tolliver MD Work Phone: [facility] External Department Unsolicited Start: 06-17-2023 Clinisync Result Encounter Madhav Tolliver MD Work Phone: [facility] External Department Unsolicited Start: 06-16-2023 Non-patient / Non-visit Carmelita benavides Work Phone: [facility] Work Phone: Start: 06-16-2023 End: 06-16-2023 Admission to same day surgery [facility] Start: 06-16-2023 End: 06-16-2023 ambulatory Carmelita Zavala Work Phone: [facility] Work Phone: Start: 06-15-2023 Clinisync Result Encounter Madhav Tolliver MD Work Phone: [facility] External Department Unsolicited Start: 06-15-2023 Clinisync Result Encounter Madhav Tolliver MD Work Phone: [facility] External Department Unsolicited Start: 06-15-2023 End: 06-15-2023 Admission to same day surgery center [facility] Start: 06-15-2023 End: 06-15-2023 ambulatory Carmelita Zavala Work Phone: [facility] [place] [facility] Work Phone: Start: 06-12-2023 Clinisync Result Encounter Madhav Tolliver MD Work Phone: [facility] External Department Unsolicited Start: 06-12-2023 Clinisync Result Encounter Madhav Tolliver MD Work Phone: [facility] External Department Unsolicited Start: 06-11-2023 End: 06-11-2023 ambulatory Addie Hunt Other [employer] Other Start: 06-11-2023 Patient encounter procedure Addie Hunt [facility] Start: 06-09-2023 ambulatory Sancho LEE Mallikai ty:[id number] Start: 05-28-2023 End: 05-28-2023 ambulatory Linda Rodriguez Other [employer] Other Start: 05-28-2023 Patient encounter procedure Linda Rodriguez [facility] V[facility] Surgery Start: 05-28-2023 End: 05-28-2023 Patient encounter procedure Carmelita Lucas Work Phone: [facility]- Start: 05-26-2023 End: 05-27-2023 ambulatory Sancho R JESUS Facility: [facility] Start: 05-26-2023 End: 05-26-2023 Patient encounter procedure Sancho Narayanan [facility] Start: 05-21-2023 End: 05-21-2023 ambulatory Addie Hunt Other [employer] Other Start: 05-21-2023 Telephone encounter Addie Hunt [facility] Start: 05-19-2023 End: 05-19-2023 ambulatory Addie Hunt Other [employer] Other Start: 05-19-2023 Patient encounter procedure Addie Hunt [facility] V[facility] Surgery Start: 05-19-2023 End: 05-19-2023 Patient encounter procedure [facility] Lucas [facility] Start: 05-14-2023 End: 05-14-2023 ambulatory Addie Hunt Other [employer] Other Start: 05-14-2023 [facility] visit, estab pt Addie Marilee [facility] Surgery Start: 05-14-2023 End: 05-14-2023 Patient encounter procedure Carmelita Zavala Work Phone: [facility] V[facility] Surgery Work Phone: Start: 04-21-2023 End: 04-21-2023 ambulatory Linda Rodriguez Other [facility] [employer] Other Start: 04-21-2023 Telephone encounter Linda Zhu [facility] Surgery Start: 04-20-2023 End: 04-24-2023 Evaluation and management of inpatient Carmelita Zavala Work Phone: [facility] [place] [address] Surgical Work Phone: Start: 04-17-2023 End: 04-17-2023 Emergency department patient visit Carmelita Zavala Work Phone: [facility]-Emergency Room Work Phone: Start: 04-17-2023 End: 04-18-2023 ambulatory Sancho LEE Facility:[facility] Start: 04-13-2023 End: 04-13-2023 Patient encounter procedure Carmeltia Zavala Work Phone: [facility]-Pre-Surgical Testing Work Phone: Start: 04-13-2023 End: 04-13-2023 ambulatory Linda Rodriguez Facility:[facility] Start: 03-25-2023 End: 03-25-2023 ambulatory Glo Singleton Other [facility] [employer] Other Start: 03-25-2023 Telephone encounter Glo LYMAN [facility] Start: 03-24-2023 Encounter by marquise Singleton [facility] Start: 03-24-2023 End: 03-24-2023 Patient encounter procedure Carmelita Zavala Work Phone: [facility]-Nuc Med [facility] Work Phone: Start: 03-24-2023 End: 03-24-2023 ambulatory Carmelita Juan J Zavala Work Phone: [facility] Work Phone: Start: 03-18-2023 End: 03-19-2023 ambulatory Sanchoeverardo LEE Facility:[facility] Start: 03-18-2023 End: 03-18-2023 Patient encounter procedure Sancho LEE [facility] Start: 03-16-2023 End: 03-16-2023 ambulatory Glo Singleton Other [facility] Other Start: 03-16-2023 Encounter for other preprocedural examination Glo Singleton [facility] Start: 03-16-2023 Office outpatient ne w 45 minutes Glo Singleton [facility] Start: 03-16-2023 Preprocedural examination done Glo Singleton Other [facility] Other Start: 03-11-2023 Office outpatient vi sit 40 minutes Linda Rodriguez [facility] Start: 03-11-2023 End: 03-11-2023 Patient encounter procedure Carmelita Lucas Work Phone: [facility]-Ultrasound [facility] Vascular Start: 03-11-2023 End: 03-11-2023 ambulatory Carmelita Juan J Garciahholz Work Phone: [facility] Other Start: 02-26-2023 End: 02-26-2023 Patient encounter procedure Carmelita Shanaz Work Phone: [facility]-CT Scan [facility] Work Phone: Start: 02-26-2023 End: 02-26-2023 ambulatory Carmelita J Aichholz Work Phone: [facility] Work Phone: Start: 02-18-2023 End: 02-18-2023 ambulatory Linda Amayacynthia Other [facility] [employer] Other Start: 02-18-2023 Office outpatient ne w 60 minutes Linda Michael [facility] Vascular Surgery Start: 02-10-2023 End: 02-10-2023 Patient encounter procedure Carmelita Grahamholz Work Phone: [facility]-MRI [facility] [place] Work Phone: Start: 02-10-2023 End: 02-10-2023 ambulatory Sancho Lee Facility:[facility] Start: 12-29-2022 End: 12-29-2022 ambulatory Carmelita Juan J Garciahsjz Work Phone: [facility] Work Phone: Start: 12-29-2022 End: 12-29-2022 Patient encounter procedure Carmelita Aichholz Work Phone: [facility]-MRI [facility] Work Phone: Start: 11-21-2022 End: 11-22-2022 ambulatory Sancho LEE Facility[facility] Start: 09-22-2022 End: 09-23-2022 ambulatory Sancho R LEE Facility:[facility] Start: 09-22-2022 End: 09-23-2022 ambulatory Sancho R LEE Facility:[facility] Start: 08-25-2022 End: 08-26-2022 ambulatory A P MECHANIC CARMELITA AICHHOLZ Facility:[facility] Start: 07-21-2022 ambulatory LINDA WORKMAN [facility] Start: 01-14-2022 End: 01-14-2022 ambulatory A P MECHANIC CARMELITA AICHHOLZ Facility:[facility] Start: 12-24-2021 End: 12-25-2021 ambulatory A P MECHANIC CARMELITA AICHHOLZ Facility:[facility] Start: 10-29-2021 End: 10-29-2021 Patient encounter procedure Mady Kramer Jr. [facility] Start: 10-22-2021 End: 10-23-[address] MADY Arboleda Facility:[facility] Start: 10-07-2021 End: 10-07-2021 ambulatory TATYANA ZAVALA Facility:[facility] Start: 09-26-2021 End: 09-27-2021 ambulatory A P MECHANIC CARMELITA ZAVALA Facility:[facility] Start: 09-10-2021 End: 09-11-2021 ambulatory A P MECHANIC CARMELITA ZAVALA Facility:[facility] Procedures Date Procedure Procedure Detail Performing Clinician Start: 06-17-2023 ALL BASIC METABOLIC PANEL Mahdav Tolliver MD Work Phone: Start: 06-16-2023 Investigation of transfusion reaction Carmelita Zavala Work Phone: Start: 06-16-2023 Debridement Carmelita Butler ivy Work Phone: Start: 06-15-2023 [facility] CMP (CMP) (FOR [facility] USE) Madhav Tolliver MD Work Phone: Start: 06-12-2023 ALL BASIC METABOLIC PANEL Madhav Tolliver MD Work Phone: Start: 04-20-2023 Antibody screen Linda Luo Comment on above: Order Comment: Trans fuse now? N Result Comment: PERF ORMED BY: [address] [place] [address] PATHOLOGIST TOOL DESIGN DRAFTSPERSON NOAH PINEDA M.D. Start: 04-20-2023 Femoral endarterectomy Carmelita Zavala Work Phone: Start: 04-17-2023 Plain X-ray of right wrist Carmelita Zaavla Work Phone: Start: 04-13-2023 Urine culture Carmelita quinteros Work Phone: Start: 03-24-2023 Radionuclide myocard ial perfusion stress study Carmelita Zavala Work Phone: Start: 03-11-2023 Duplex scan of lower limb arteries Carmelita Zavala Work Phone: Start: 02-26-2023 Computed tomography angiography of abdominal and/or pelvic blood vessel Carmelita Zavala Work Phone: Start: 02-10-2023 MR prostate wo/w con Lisa Zavala Work Phone: Start: 08-25-2022 PSA screening A P MECHANIC CARMELITA ZAVALA Comment on above: Performed By: #### P SAFREE #### [facility] [address] [place] [address] Dr. Daniel Hahn Start: 04-18-2021 Cystoscopy and retro grade pyelography Mady Kramer Jr. Comment on above: laser lithotripsy , ureteroscopy stone extraction .left stent placement Start: 01-11-2019 Cystoscopy Mady yost Jr. Start: 05-04-2009 Repair of aneurysm Ayaka Kramer Jr. Comment on above: Behind both of my k rafaela. Start: 05-04-1967 Arthroscopy of knee Forest Kramer Jr. Comment on above: Right knee Amputation of lower limb Forest Krmaer Jr. Comment on above: B/L, above the knee Colonoscopy Mady Arboleda Comment on above: over 10 years ago Extraction of cataract Vahid Kramer Jr. Comment on above: B/L Tonsillectomy Mady arizmendi Plan of Treatment Date Care Activity Detail Author Start: 10-19-2023 CT cervical spine wi thout contrast CT cervical spine wo [facility] Start: 10-19-2023 CT Cervical spine WO contrast [facility] Start: 10-19-2023 CT of head without contrast CT head/brain wo [facility] Start: 10-19-2023 CT Unspecified body region WO contrast [facility] Start: 10-19-2023 Plain chest X-ray XR chest 1V portab le [facility] Start: 10-19-2023 XR Chest Single view Fi [facility] Start: 07-20-2023 End: 07-20-2023 Patient encounter procedure 07/20/2023 6:00 PM EDT Office Visit [facility] [address] [place] [address] Carmelita Zavala NP [address] [place] [address] [facility] Start: 06-16-2023 Microscopic observat ion [Identifier] in Unspecified specimen by Gram stain [facility] Start: 06-16-2023 Debridement OR Wound Debridement/I&D/Hydra denitis (Not Applicable) [facility] Start: 06-16-2023 End: 06-16-2023 [facility] Start: 04-23-2023 [facility] Start: 04-21-2023 Referral to Tube And Rod Straightener [facility] Start: 04-20-2023 Hospital admission [facility] Start: 04-20-2023 Bypass Right Externa l Iliac Artery to Right Femoral Artery with Synthetic Substitute, Open Approach Bypass Right External Iliac Artery to Right Femoral Artery with Synthetic Substitute, Open Approach [facility] Start: 04-20-2023 Excision of Right Fe moral Artery, Open Approach Excision of Right Femoral Artery, Open Approach [facility] Start: 01-02-2023 Influenza vaccination Influenz a Vaccine (#1) [facility] Healthcare Start: 1945 Medicare Annual Well ness (AWV) Medicare Annual Wellness (AWV) [facility] Anion gap measurement [facility] Bacteria identified in Unspecified specimen by Aerobe culture [facility] Bacteria identified in Unspecified specimen by Anaerobe culture [facility] Basophils [#/volume] in Blood by Automated count [facility] Basophils/100 leukoc ytes in Blood by Automated count [facility] Eosinophils/100 leukocytes in Blood by Automated count [facility] Erythrocyte distribu tion width [Ratio] by Automated count [facility] Erythrocytes [#/volu me] in Blood [facility] Hematocrit [Volume Fraction] of Blood [facility] Hemoglobin [Mass/vol ume] in Blood [facility] Leukocytes [#/volume ] corrected for nucleated erythrocytes in Blood by Automated coun [facility] Leukocytes [#/volume ] in Blood [facility] Lymphocytes [#/volum e] in Blood by Automated count [facility] Lymphocytes/100 leukocytes in Blood by Automated count [facility] MCH [Entitic mass] b y Automated count [facility] MCHC [Mass/volume] b y Automated count [facility] MCV [Entitic volume] by Automated count [facility] Monocytes [#/volume] in Blood by Automated count [facility] Monocytes/100 leukoc ytes in Blood by Automated count [facility] Neutrophils [#/volum e] in Blood by Automated count [facility] Neutrophils/100 leukocytes in Blood by Automated count [facility] Nucleated erythrocyt es [Presence] in Blood by Automated count [facility] Patient Education [facility] Work Phone: Patient referral [facility] Work Phone: Platelet mean volume [Entitic volume] in Blood by Automated count [facility] Platelets [#/volume] in Blood [facility] Immunizations Immunization Date Immunization Notes Care Provider Fa [facility] 10-19-2023 tetanus toxoid, redu matilde diphtheria toxoid, and acellular pertussis vaccine, adsorbed Carmelita Zavala Work Phone: [facility] 04-22-2022 COVID-19 (Pfizer) Bivalent Booster, Age 12Y+ Carmelita Zavala Work Phone: [facility] 04-22-2022 SARS-CoV-2 (COVID-19 ) [id number] Sancho JESUS [facility] 02-19-2021 COVID-19 (Pfizer) Carmelita hyanes Work Phone: [facility] 02-19-2021 SARS-CoV-2 (COVID-19 ) mRNA BNT-162b2 vax Sancho LEE [facility] 01-28-2021 COVID-19 (Pfizer) Carmelita haynes Work Phone: [facility] 01-28-2021 SARS-CoV-2 (COVID-19 ) mRNA BNT-162b2 vax Sancho LEE [facility] 03-04-2020 influenza virus vacc ine, unspecified formulation Madhav Tolliver MD Work Phone: [facility] 02-13-2020 influenza virus vacc ine, unspecified formulation Mady Kramer Jr. [facility] 02-02-2020 pneumococcal conjuga te vaccine, 13 valent Sancho LEE [facility] 12-30-2019 influenza virus vacc ine, unspecified formulation Sancho LEE [facility] 04-10-2019 pneumococcal conjuga te vaccine, 13 valent Sancho LEE [facility] 01-11-2019 influenza virus vacc ine, unspecified formulation Sancho LEE [facility] 03-15-2018 influenza virus vacc ine, unspecified formulation Sancho LEE [facility] 03-15-2018 pneumococcal polysaccharide vaccine, 23 valent Sancho LEE [facility] 04-13-2017 influenza virus vacc ine, unspecified formulation Sancho LEE [facility] 01-30-2017 pneumococcal conjuga te vaccine, 13 valent Sancho LEE [facility] 09-21-2014 zoster vaccine, live Sancho LEE [facility] 03-30-2012 pneumococcal polysaccharide vaccine, 23 valent Mady Kramer Jr. [facility] Comment on above: Early/Late Reason: N ew Med Order Payers Date Payer Category Payer Self-pay [id number] 2022 Unknown AARP AARP [id number] 2022-Present [address] [place] [address] [id number] 2011 Medicare MEDICARE MEDICAR E PART B [id number] 2011-Present [address] [address] [place] [address] Medicare [id number] 1959 Medicare [id number] 1959 Unknown [id number] 1945 Unknown [id number] 2.16.840.1.975553.3.579.2. 593 1945 Unknown [id number] 2.16.840.1.105846.3.579.2. 593 1946 Unknown [id number] 2.16.840.1.550154.3.579.2. 593 1946 Unknown [id number] 2.16.840.1.786312.3.579.2. 593 1946 Unknown [id number] 2.16.840.1.362239.3.579.2. 593 1946 Unknown [id number] 2.16.840.1.260841.3.579.2. 593 1946 Unknown [id number] 2.16.840.1.089036.3.579.2. 593 1946 Unknown [id number] 2.16.840.1.597828.3.579.2. 727 1945 Unknown [id number] 2.16.840.1.661080.3.579.2. 727 1946 Unknown [id number] 2.16.840.1.108590.3.579.2. 727 1946 Unknown [id number] 2.16.840.1.607741.3.579.2. 727 1946 Unknown [id number] 2.840.1.552765.3.579.2. 727 1946 Unknown [id number] 2.16840.1.575896.3.579.2. 727 1946 Unknown [id number] 2..840.1.246437.3.579.2. 727 Private Health Insurance [facility] [id number] Unknown [id number] 2.16.840.1.813285.3.579.2. 531 Unknown [id number] 2.16.840.1.361707.3.579.2. 531 Unknown [id number] 2.16.840.1.156194.3.579.2. 531 Unknown [id number] 2.16.840.1.676966.3.579.2. 531 Unknown [id number] 2.16.840.1.374056.3.579.2. 531 Unknown [id number] 2.16.840.1.607251.3.579.2. 531 Unknown [id number] 2.16.840.1.186786.3.579.2. 531 Social History Date Type Detail Facility Start: 03-21-2021 End: 10-19-2023 Tobacco smoking status Never smoked tobacco (finding) [facility] Sex Assigned At Male [facility] Start: 06-18-2021 End: 06-18-2021 Tobacco smoking status NHIS Ex-smoker (finding) [facility] Start: 1945 Sex Assigned At Male F [facility] Tobacco smoking status Never [facility] Tobacco smoking status NHIS Tobacco smoking consumption unknown [facility] Healthcare Start: 1945 Sex Assigned At Not on file N [facility] Healthcare Medical Equipment Procedure Code Equipment Code Equipment Origin al Text Equipment Identifier Dates Endarterectomy of femoral artery using patch graft for repair Synthetic vascular graft ()[id number] FDA Start: 04-20-2023 CYSTOSCOPY RETROGRADE STENT INSERTION Williams Ogden MD, Mady Liao 04/18/21 Non Biological Ureter L {[id number] FDA Start: 04-18-2021 Goals Date Patient Goal Desired Activity /State Functional Status Date Assessment Result Facility 04-24-2023 Functional status Patient at Baseline [facility] Work Phone: 10-29-2021 Functional Status N/A [facility] Mental Status Date Assessment Result Facility 04-24-2023 Cognitive function Cognitive Sta tus Patient at Baseline [facility] Work Phone: Clinical Notes 10-29-2021 to 06-16-2023 Note Date & Type Note Facility 06-16-2023 Procedure note [facility] 06-11-2023 Evaluation note Encounter Date Diagnosis Assessment [...] son and notify him of our plans. [facility] Other 01-25-2024 Evaluation note* Encounter Date Diagnosis Assessment Notes Treatment Notes Treatment Clinical Notes May, Other This documentat ion is being amended on 07/20/2023 due to an internal data corruption event that occurred on 05/28/2023. This data corruption event was not the result of any breach, fraud, or malicious third-democrat actors and no personal patient information was compromised. 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 [...] his normal follow-up for additional wound check. [facility] Other 01-11-2024 Evaluation note* Encounter Date Diagnosis [...] will also forward today's office note to [facility] as well. They verbalized understanding in the office today, agree with plan, deny any questions. Will see him in a week or 2, sooner as needed. May, Encounter for surgical aftercare following surgery of circulatory system (ICD-10 - Z48.812) [facility] Other 01-04-2024 Hospital Discharge instructions Follow Up Care 05/07/2023 09:48:20 With:JESUS DEAL, Sancho Narayanan, URL Address: [facility] [address], [place] [address] [phone] When: Unknown [facility] 12-20-2023 Progress note Author Linda Rodriguez [facility] April 22, 2023 8:46am Note Date/Time April 22, 2023 8:14am [facility] [address] [place] [address] Vascular Surgery Progress Note Signed Patient: Sebastian Diego MR#: [id number] : 1945 Acct:[id number] Age/Sex: 77 / M Adm Date: 3 Loc: 4N Room: [address] [place] [address] Type: ADM IN Attending Dr: Linda Rodriguez [...] signed by Linda Rodriguez MD> 04/22/23 0846 [facility] Work Phone: 1(809) 519-739412-19-2023 Progress note Author Linda Rodriguez [facility] April 21, 2023 3:33pm Note Date/Time April 21, 2023 8:41am [facility] [address] [place] [address] Vascular Surgery Progress Note Signed Patient: Sebastian Diego MR#: [id number] : 1945 Acct:[id number] Age/Sex: 77 / M Adm Date: 3 Loc: 4N Room: 5P7280-2 Type: ADM IN Attending Dr: Linda Rodriguez [...] MPV Neut % (Auto) Lymph % (Auto) [place] % (Auto) Eos % (Auto) Baso % (Auto) Nucleat RBC Rel Count Neut # (Auto) Lymph # (Auto) [place] # (Auto) Eos # (Auto) Baso # [...] % (Auto) 91.3 Lymph % (Auto) 3.9 [place] % (Auto) 4.6 Eos % (Auto) 0.0 Baso % (Auto) 0.2 Nucleat RBC Rel Count 0.0 Neut # (Auto) 16.0 H Lymph # (Auto) 0.7 L [place] # (Auto) 0.8 Eos # (Auto) 0.0 Baso # (Auto) 0.0 Activated Clotting Time PHA Creatinine Clear Sodium Potassium Chloride Carbon Dioxide Anion Gap BUN Creatinine Est GFR (CKD-EPI) Glucose POC Glucose 154 156 POC Glucose Comment Glu2: cleaned meter Calcium Blood Type Blood Type Recheck Antibody Screen Crossmatch ([facility]) 04/21/23 05:33 Corrected WBC Uncorrected WBC Count RBC Hgb Hct MCV MCH MCHC RDW Plt Count MPV Neut % (Auto) Lymph % (Auto) [place] % (Auto) Eos % (Auto) Baso % (Auto) Nucleat RBC Rel Count Neut # (Auto) Lymph # (Auto) [place] # (Auto) Eos # (Auto) Baso # (Auto) Activated Clotting Time PHA Creatinine Clear 54.31 Sodium 137 Potassium Chloride 106 Carbon Dioxide 24.7 Anion Gap TNP BUN 19 Creatinine 1.06 Est GFR (CKD-EPI) > 60.0 Glucose 130 H POC Glucose POC Glucose Comment Calcium 8.0 L Blood Type Blood Type Recheck Antibody Screen Crossmatch ([facility]) A&P - Vascular Assessment/Plan (1) Femoral [...] therapy today. I will ask the social worker school to see him with regards to placement. [...] signed by Linda Rodriguez MD> 04/21/23 1533 [facility] Work Phone: 1(470) 990-168412-18-2023 Procedure [facility]11-21-2023 Procedure [facility]11-13-2023 Evaluation note* Encounter Date Diagnosis Assessment [...] H43.813) Mar, Abnormal EKG (ICD-10 - R94.31) [facility] Other 11-08-2023 Evaluation note* Encounter Date Diagnosis [...] help him he voiced understanding of this. [facility] Other 10-18-2023 Evaluation note* Encounter Date Diagnosis [...] after the study to for further recommendations. [facility] Other 05-22-2023 NoteChief Complaint Referral *Elevated PSA [...] URL [facility] [address], [place] [address]- Additional Instructions: schedule MRI of prostate, f/u [...] BID metformin 500 mg Tab Potassium Chloride (Jbr-Slau-Siq 10) 10 mEq oral tablet, extended release [...] Comments SARS-CoV-2 (COVID-19) mRN (more content not included)...[facility]Result Comment: Electronically Signed By: Lynne Mas\.br\Date and Time Signed: 09/22/22 13:12 EDT\.br\Electronically Co-Signed By: Sancho LEE MD\.br\Date and Time Co-Signed: 09/22/22 13:22 [id number] [facility] [address] [place] [address] Mr. Sebastian Diego was seen for a neuropsychological evaluation on 07/21/2022. A report describing the results of this evaluation will be posted upon completion. Linda Workman, PhD, ABPP Board Certified Clinical Neuropsychologist OUTPATIENT REHABILITATION SERVICES NEUROPSYCHOLOGY [address] [facility] [address] FAX: [phone] NEUROPSYCHOLOGICAL EVALUATION DATES OF SERVICE: 07/21/2022 DIANGOSES: Other specified mental disorders due to known physiological condition; memory impairment DATE OF ONSET: Unknown DATE OF : 1945 AGE: 77-years TIME SPENT: (See Table) REASON FOR REFERRAL: This is the initial neuropsychological evaluation (outpatient) of Mr. Sebastian Diego, a 77-year-old, right-handed, White, gentleman who was referred for this evaluation by Neurologist, Dr. Elyssa Pierce to determine present cognitive functioning in [...] thyroid gland, elevated parathy (more content not included)...[facility]03-20-2023 [id number] Sebastian Diego Cindi 1945 M Date Provider Department Center 07/21/2022 LINDA MARTINEZ [facility] RE[facility]AB PSY Medical [facility] No family history [facility] file[facility] Hospital Discharge instructions Patient Education 10/29/2021 11:03:50 [...] Follow these instructions at home: Medicines Take hkqh-hrk-mmpookx and prescription medicines only as told by [...] or the blood stops without treatment. Take nfnc-orm-cpothcy and prescription medicines only as told by your health care provider. Drink enough fluid to keep your urine clear or pale yellow. This information is not intended to replace advice given to you by your health care provider. Make sure you discuss any questions you have with your health care provider. Document Released: 04/20/2006 Document Revised: 09/14/2019 Document Reviewed: 05/23/2017 [employer] Patient Education 2020 [employer]. Follow Up Care 04/25/2021 09:31:27 With:Williams Ogden MD, Mady Liao, URO Address: [facility] [address], [place] [address] [phone] When:10/29/2022 Comments:PSA, KUB [facility] evaluation + Plan note Future Appointments Appointment Date:11/11/2022 11:15:00 AM Scheduled Provider:Mady Kramer Jr., MD Location:[facility] Appointment Type:URO Office Visit Diagnostic Tests Pending * PSA Total 10/29/21 [facility] evaluation + Plan note Future Appointments Appointment Date:04/17/2023 09:30:00 AM Scheduled Provider:Sancho LEE MD Location:[facility] Appointment Type:URO Office Visit [facility] evaluation + Plan note Future Appointments Appointment Date:06/19/2023 11:15:00 AM Scheduled Provider:Sancho LEE MD Location:[facility] Appointment Type:URO Office Visit [facility] evaluation noteNo assessment information available [facility] Work Phone: Evaluation noteNo InformationNofitzgib[facility] Appnique Other evaluation note* Diagnosis Onset Date Resolution Status Femoral artery aneurysm, right acute [facility] Work Phone: Evaluation note* Diagnosis Onset Date Resolution Status Femoral artery aneurysm, right resolved [facility] Work Phone: Evaluation note* Diagnosis Onset Date Resolution Status 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 right lower extremity acute Postoperative external wound disruption acute [facility] Work Phone: Evaluation note* Diagnosis Onset Date Resolution Status Postoperative external wound disruption acute [facility] Work Phone: History general Narrative - Reported* Type Description Date [...] SEE ABOVE SURGERIES Hospitalization History Confusion/ TIA NativeX Other Hospital course Narrative No data available for this section [facility] Hospital Discharge instructions No data available for this section [facility] Discharge instructions Additional Instructions Continue rest ice elevate Tylenol 650 mg to 1000 mg every 4 hours for pain Wear the wrist splint as needed for comfort stability Follow-up with your family doctor for recheck Return to the ER for worsening pain loss of circulation in your fingers fever chills or any [facility] Work [facility] Discharge instructions Additional Instructions May shower. Do not soak in bathtub. Keep Prevena dressing in place x 7 days. Then remove entire dressing and discard. After that, wash daily with mild soap and water, pat dry, apply clean dry dressing.[facility] Work Phone: Hospital Discharge instructions Additional Instructions Apply bacitracin ointment to your scalp abrasion daily. You can take Motrin Tylenol as needed for pain.[facility] Work Phone: Progress note No data available for this section [facility] Summary Purpose Family History No Family History Records Found Relationship Condition Age at Onset Recorded Date/T samara Not Specified Myocardial infarction Unknown brother Chronic obstructive pulmonary disease Unk nown Relationship Condition Age at Onset Recorded Date/T samara Not Specified Myocardial infarction Unknown brother Chronic obstructive pulmonary disease Unk nown father History of stroke Unknown Unknown Not Specified History of stroke Unknown Advance Directives No Advanced Directives Records Found [...] for Visit Femoral artery aneur ysm, right Chief Complaint Z01.818 I71.40 H43.8 13 R04.31 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 3-Week Follow-Up Femoral Aneurysm Repair Wound Check 2 Wk Wound Check non-healing wound Non Healing Amputation Site Reason for Visit Femoral artery aneur ysm, right Chief Complaint Z01.818 I71.40 H43.8 13 R04.31 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 3-Week Follow-Up Femoral Aneurysm Repair Wound Check 2 Wk Wound Check non-healing wound Non Healing Amputation Site Non Healing Amputation Site Reason for Visit Femoral artery aneur ysm, right Chief Complaint 3-Week Follow-Up Fem oral Aneurysm Repair Wound Check 2 Wk Wound Check Non Healing Amputation Site Non Healing Amputation Site 3 WK F/U; WOUND DEBRIDEMENT 3 WK WOUND CHECK Reason for Visit Above knee amputatio n of left lower extremity Above knee amputation of right lower extremity Postoperative external wound disruption Chief Complaint 3 WK WOUND CHECK fall Reason for Visit Postoperative pump tester al wound disruption Additional Source Comments Care Team (unrecognized sect ion and content) Team Status: Active Member Role Status Dates Carmelita Juan J Graciarosemarieaubrey Primary Care Provider Active Team Status: Inactive Member Role Status Dates Sancho Lee MD Attending Provider Active Carmelita Juan J Shanaaubrey Primary Care Provider Active Team Status: Inactive Member Role Status Dates Carmelita Arita Joserosemarieaubrey Primary Care Provider Active Sancho Lee MD Attending Provider Active Team Status: Inactive Member Role Status Dates Carmelita Juan J Garciaayoneli Primary Care Provider Active Linda Rodriguez MD Attending Provider Active Team Status: Inactive Member Role Status Dates Carmelita Saldanaaubrey Primary Care Provider Active Glo Singleton MD Attending Provider, Referring Provi rylee Active Team Status: Inactive Member Role Status Dates Carmelita Saldanaaubrey Primary Care Provider Active JAVIER RaglandP- Emergency Provider Active Team Status: Inactive Member Role Status Dates Carmelita Saldanaaubrey Primary Care Provider Active Linda Rodriguez MD Admit Provider, Attending Pr ovider Active Primary Care Nurse Relationship Specialty Start Date End Date Bruno Rizzo MD [address] [place] [address] PCP - General Family Medicine 06/08/23 Carmelita Zavala NP [address] [place] [address] Nurse Practitioner Family Medicine 03/04/23 Team Status: Inactive Member Role Status Dates Carmelita Juan J Garciarosemarieaubrey Primary Care Provider Active Sta rt: March 24, 2023 End: March 24, 2023 Glo Singleton MD Attending Provider, Referring Provider Active Start: March 24, 2023 End: March 24, 2023 Team Status: Inactive Member Role Status Dates Carmelita Arita Joserosemarieaubrey Primary Care Provider Active Sta rt: April 13, 2023 End: April 13, 2023 Linda Rodriguez MD Attending Provider Active Start: April 13, 2023 End: April 13, 2023 Team Status: Inactive Member Role Status Dates Carmelita Garciaayoneli Primary Care Provider Active Sta rt: April 17, 2023 End: April 17, 2023 Mary Carey TRANSPORT OPERATIONS INSPECTOR- Emergency Provider Active Start: April 17, 2023 End: April 17, 2023 Team Status: Inactive Member Role Status Dates Carmelita Zavala Primary Care Provider Active Sta rt: April 20, 2023 End: April 24, 2023 Linda oRdriguez MD Admit Provider , Attending Provider Active Start: April 20, 2023 End: April 24, 2023 Team Status: Inactive Member Role Status Dates BIA Chino Attending Provider Active Start: May 14, 2023 End: May 14, 2023 Team Status: Inactive Member Role Status Dates BIA Chino Attending Provider Active Start: May 19, 2023 End: May 19, 2023 Team Status: Inactive Member Role Status Dates Linda Rodriguez MD Attending Provider Active Start: May 28, 2023 End: May 28, 2023 Team Status: Inactive Member Role Status Dates Carmelita Zavala Primary Care Provider Active Sta rt: June 15, 2023 End: June 15, 2023 Linda Rodriguez MD Attending Provider Active Start: June 15, 2023 End: June 15, 2023 Team Status: Active Member Role Status Dates Carmelita Zavala Primary Care Provider Active Sta rt: June 16, 2023 Linda Rodriguez MD Attending Provider Active Start: June 16, 2023 Team Status: Inactive Member Role Status Dates Carmelita Zavala Primary Care Provider Active Sta rt: June 16, 2023 End: June 16, 2023 Linda Rodriguez MD Attending Provider Active Start: June 16, 2023 End: June 16, 2023 Team Status: Active Member Role Status Dates Carmelita Zavala Primary Care Provider Active Sta rt: June 16, 2023 Linda Rodriguez MD Attending Prov ider, Other Provider Active Start: June 16, 2023 Team Status: Inactive Member Role Status Dates Carmelita Zavala Primary Care Provider Active Sta rt: July 08, 2023 End: July 08, 2023 Linda Rodriguez MD Attending Provider Active Start: July 08, 2023 End: July 08, 2023 Team Status: Inactive Member Role Status Dates Carmelita Zavala Primary Care Provider Active Sta rt: July 30, 2023 End: July 30, 2023 Linda Rodriguez MD Attending Provider Active Start: July 30, 2023 End: July 30, 2023 Team Status: Inactive Member Role Status Dates Carmelita Zavala Primary Care Provider Active Sta rt: October 18, 2023 End: October 19, 2023 Linda Luo DO Emergency Provider Active Start: October 18, 2023 End: October 19, 2023 (unrecognized sect ion and content) No Status Records FoundNo Status Records FoundNo Status Records FoundNo Status Records Found INFORMATION SOURCE (unrecogn ized section and content) DATE CREATED AUTHOR 08/19/2022 [facility] DATE CREATED AUTHOR AUTHOR'S ORGANIZ ATION 08/28/2022 [facility] DATE CREATED AUTHOR AUTHOR'S ORGANIZ ATION 07/04/2023 [facility] DATE CREATED AUTHOR AUTHOR'S ORGANIZ ATION 10/20/2023 [facility] Goals (unrecognized section and content) Goals may be documented in a n alternate section REASON FOR VISIT (unrecogniz ed section and content) NEW PATIENT REF BY DR. DESIR S FOR FEMORAL ARTERY ANEURYSMGO OVER CT SCAN AND U/S 930ACardiac Clearance AAA Dr. Rodriguezsurgery clearanceNo Informationsurgery questions3-week follow-up femoral aneurysm repairWOUND CHECKPLAVIX AND ASAwound check2 WK WOUND CHECK FOR RECORDS PERTAINING TO PATIENTS WHO ARE [...] BE BASED ON THE PRIMARY CLINICAL RECORDS. [employer] provides no warranty or guarantee of the accuracy or completeness of information in this document.
[2023-12-24] MEDS: HYDROCODONE/ACET 5-325 MG TABLET 2 TAB PO (04:33)
== END 2023-12-24 07:03 | disposition home or self-care (01) ==
PROVIDERS: Emergency Provider Internal Medicine; PCP Nurse Practitioner
DX: S32.039A Unspecified fracture of third lumbar vertebra, initial encounter for closed fracture (principal); S32.049A Unspecified fracture of fourth lumbar vertebra, initial encounter for closed fracture; Z89.612 Acquired absence of left leg above knee; Z89.611 Acquired absence of right leg above knee; W06.XXXA Fall from bed, initial encounter; Z66 Do not resuscitate
CPT/HCPCS: 70450; 72125; 73070; 99284